=== PATIENT | female | born 1970 | race Caucasian/White ===

== ENCOUNTER 2022-02-03 12:55 | Outpatient (CLI) | payer BC, SELFPAY | END 2022-02-03 12:56 | disposition home or self-care (01) | LOC: LKVREF 02-14 10:00 | PROVIDERS: PCP Family Medicine; Visit Provider Nurse Practitioner Family | DX: N39.0 Urinary tract infection, site not specified (principal); R31.9 Hematuria, unspecified | CPT/HCPCS: 87086; 87186 ==

== ENCOUNTER 2022-04-03 10:28 | Emergency (ER) | payer BC, SELFPAY ==
[2022-04-03 10:34] VITALS: BP 119/74; PULSE 87; RESP 16; TEMP 36.3; O2SAT 96; BMI 30.8
--- NOTE | 2022-04-03 10:58 | ED_ITS ---
HPI - General Adult General Time Seen by Provider: 10:59 Date Seen: 04/03/22 Chief complaint: Shortness of Breath/Dyspnea Stated complaint: Short of breath, rash Time Seen by Provider: 04/03/22 10:56 Source: patient, RN notes reviewed and old records reviewed Mode of arrival: ambulatory Limitations: no limitations History of Present Illness HPI narrative: Patient is a 51-year-old female coming in with 2 concerns today. First of all, she has noticed a rash. She states it is faint pink spots that have started to spread onto her thighs and lower abdomen. She noted a couple weeks ago she had perineal itching. She has a history of yeast infections. She used Monistat 7 for a 7 day course, completing Thursday night. She has noticed increased itching moving out into the thighs in on the lower abdomen. She felt the Monistat helped some. She also noticed starting yesterday that her chest this feels heavy. It is worse with deep breathing. It is a central heaviness feeling. It feels worse with laying down. She does feel better sitting up. She does have some problems with some seasonal allergy issues and post nasal drainage/rhinorrhea. She does use Zyrtec daily. She notes seasonal changes will typically bring this on. She has maybe had occasional cough due to some postnasal drainage but no new cough noted. There has been no fevers or chills. She does not feel ill. On questioning and talking about thromboembolic disease, patient remembered that this morning she had extreme left calf pain that awoke her from sleep. She initially was just thinking that this might be a muscle cramp what with me talking about it, she did think about the calf pain. She does note that she has had a spinal fusion and has some decreased sensation in her legs from that, also has some peripheral neuropathy complicating chemotherapy. 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 Completion of radiation. Now on tamoxifen and Verzenio. Related Data Home Medications Medication Instructions Recorded Confirmed baclofen 10 mg tablet 10 mg PO QDAY 02/03/22 04/03/22 cetirizine 10 mg capsule (All Day 10 mg PO QDAY PRN 02/03/22 04/03/22 Allergy (cetirizine)) cholecalciferol (vitamin D3) 50 50 mcg PO QDAY 02/03/22 04/03/22 mcg (2,000 unit) capsule famotidine 20 mg tablet 20 mg PO BID 02/03/22 04/03/22 levothyroxine 75 mcg tablet 75 mcg PO QDAY 02/03/22 04/03/22 tamoxifen 20 mg tablet 20 mg PO .d 02/03/22 04/03/22 Florify .Route DAILY 02/18/22 03/27/22 Hair/Skin/Nails Not Applicable DAILY 02/18/22 03/27/22 cranberry 400 mg capsule 400 mg PO QDAY 02/18/22 04/03/22 Previous Rx's Medication Instructions Recorded abemaciclib 150 mg tablet 150 mg PO BID #60 tabs 02/14/22 fluconazole 150 mg tablet 150 mg PO DAILY #2 tabs 04/03/22 (Diflucan) nystatin 100,000 unit/gram topical 1 applic topical BID PRN #30 grams 04/03/22 powder omeprazole 40 mg capsule,delayed 40 mg PO DAILY #30 caps 04/03/22 release prednisone 20 mg tablet 60 mg PO DAILY #42 tabs 04/03/22 Allergies Allergy/AdvReac Type Severity Reaction Status Date / Time vancomycin Allergy Severe cardiac Verified 03/27/22 14:25 Sulfa (Sulfonamide Allergy Intermediate Respiratory Verified 03/27/22 14:25 Antibiotics) distress amoxicillin Allergy Mild Rash Verified 03/27/22 14:25 ciprofloxacin Allergy Mild Rash Verified 03/27/22 14:25 gabapentin Allergy Mild suicidal Verified 03/27/22 14:25 silicone adhesives Allergy Mild Rash Uncoded 02/03/22 13:01 Review of Systems Status of ROS: Reports: 10 or more systems reviewed and unremarkable except as noted in History and below FOR[facility]LY [facility], [facility] PFS Social History Smoking Status: Never smoker Exam Const: Vital Signs, click to edit/add: Vital Signs - 24 hr 04/03/22 10:34 Temperature 97.4 F L Pulse Rate [Right Pulse Oximeter] 87 Respiratory Rate 16 Blood Pressure [Ri ght Upper Arm] 119/74 Pulse Oximetry 96 Oxygen Delivery Me thod Room Air Documenting provider has reviewed patient's vital signs: yes Common normals: no apparent distress, average body habitus, oriented x3, no limitations, healthy appearing and alert General appearance: cooperative, comfortable, well kempt and well developed Other: Does appear mildly pale but is alert, conversive, no apparent distress. HENMT: Common normals: normocephalic, head/scalp atraumatic, hearing grossly normal bilaterally, external ears normal, external nose normal and nasal mucous membranes and turbinates normal Head and scalp: normocephalic and atraumatic Nose: external nose normal and nasal mucous membranes and turbinates normal External ear: external ears normal Eye: Common normals: PERRL, EOMs intact bilaterally, conjunctivae normal and no scleral icterus Conjunctiva: conjunctiva(e) normal Pupil: PERRL Neck & C-Spine: Common normals: full ROM, no lymphadenopathy, supple, no meningeal signs, no JVD and thyroid normal Thyroid: thyroid normal Lymph: Lymphatic: no lymphadenopathy noted Chest: Common normals: inspection of chest normal and palpation of chest normal Resp: Common normals: normal respiratory effort, no retractions, no use of accessory muscles and clear to auscultation bilaterally Auscultation: clear to auscultation bilaterally Cardio: Common normals: no JVD, regular rate, regular rhythm, S1 normal heart sound, S2 normal heart sound, no gallops, no clicks and no murmurs Rate: regular rate Rhythm: regular rhythm Heart sounds: S1 normal and S2 normal GI: Common normals: Normal to inspection, nondistended, normoactive bowel sounds present, soft to palpation, non-tender, no hepatosplenomegaly and no masses Palpation: soft and no hepatosplenomegaly Other: Faint erythematous strip in skin fold of lower abdominal pannus, mildly erythematous, no skin breakdown. Certainly could be a little yeast. : Other: Has no perineal rash, no discharge noted. She has atrophic changes but no masses noted. No rash noted of the inner thighs. Extremity: Other: Left calf maybe seems a little larger than the right but there is certainly no vascular changes, no change in skin coloration. No pitting edema. Neuro: Common normals: oriented x3, CN's II-XII intact bilaterally, moves all extremities, no focal motor deficits and gait normal Sensorium/orientation: alert Meningeal signs: no meningeal signs Speech: speech normal Psych: Appearance: well kempt Course Course Hospital Course: Patient's itching maybe coming from generalized pruritus. I do not see any definite rash outside of a small little strip in the abdominal pannus. We will get appropriate labs, see where her liver enzymes are. As far as the respiratory symptoms, did review concerns for pulmonary emboli/DVT given cancer history. She understands and agrees with proceeding with chest CT PE protocol and ultrasound in her left lower extremity. Will also look at cardiac possibilities is causes of her symptoms. She does not seem to have any acute infection concerns but will consider triple swab and possible early viral etiologies cause of her chest symptoms. Right now she is hemodynamically stable, will guide therapy accordingly. Reevaluation(s) Reevaluation #1: Reviewed the CT findings and my discussion with Dr. Castaneda. Answered patient's questions, reviewed with her signs and symptoms for return to the ED while she works through radiation pneumonitis. Time: 13:49 Consultations Consultation #1: Briefly spoke with Lena from the infusion center, she kindly referred me to [facility]. I spoke with Dr. Ever myers, had 10 minute conversation reviewing patient's history, CT findings. He agrees that this sounds like radiation pneumonitis. He states typically this will manifest 6 weeks to 6 months after radiation. He states she did all of her left chest and her left lymph nodes given her reports. He states this put her at a bit higher risk for this although overall this is not a high risk of a complication for most patients. She completed her radiation February 03. He recommended prednisone 60 mg daily for 2 weeks and then a taper after that. He will get his staff to get her back in on Thursday. We discussed antibiotic use and she has multiple allergies, this does not seem to be consistent with the bacterial pneumonia but she should watch for signs and symptoms. We also reviewed she has multiple antibiotic allergies which would make me hesitant to place her on any antibiotics unless we 100% knew that this was a bacterial pneumonia. This time he agrees, he really feels this is radiation pneumonitis. He would like her covered with omeprazole daily. Time: 13:31 Vital Signs Vital signs: Initial Vital Signs Temperature 97.4 F L 04/03/22 10:34 Temperature Source Temporal Artery Scan 04/03/22 10:34 Pulse Rate 87 04/03/22 10:34 Pulse Rhythm 04/03/22 10:34 Respiratory Rate 16 04/03/22 10:34 Blood Pressure 119/74 04/03/22 10:34 Blood Pressure Mean 89 04/03/22 10:34 Blood Pressure Position Sitting 04/03/22 10:34 Pulse Oximetry 96 04/03/22 10:34 Oxygen Delivery Method 04/03/22 10:34 Vital Signs Temperature 97.4 F L 04/03/22 10:34 Pulse Rate 87 04/03/22 10:34 Respiratory Rate 16 04/03/22 10:34 Blood Pressure 119/74 04/03/22 10:34 Pulse Oximetry 96 04/03/22 10:34 Oxygen Delivery Method 04/03/22 10:34 Temperature 97.4 F L 04/03/22 10:34 Pulse Rate 87 04/03/22 10:34 Respiratory Rate 16 04/03/22 10:34 Blood Pressure 119/74 04/03/22 10:34 Pulse Oximetry 96 04/03/22 10:34 Oxygen Delivery Method 04/03/22 10:34 Medical Decision Making Lab Data Lab results reviewed: Yes I reviewed the patient's lab results Labs: Lab Results 04/03/22 04/03/22 04/03/22 Range/Units 11:30 11:30 11:30 WBC 4.04 L (4.50-11.00) K/uL RBC 3.68 L (4.00-5.20) m/uL Hgb 11.4 L (12.0-16.0) gm/dL Hct 34.7 (33.0-51.0) % MCV 94 (80-100) fL MCH 31 (26-34) pg MCHC 33 (32-36) gm/dL RDW Coeff of Farhan 15.0 (11.5-15.5) % Plt Count 215 (140-440) K/uL Neut % (Auto) 64.7 (42.0-72.0) % Lymph % (Auto) 22.0 (20-44) % Anderson % (Auto) 10.4 (0.0-11.0) % Eos % (Auto) 2.0 (0.0-7.0) % Baso % (Auto) 0.7 (0.0-3.0) % Neut # (Auto) 2.60 (1.7-7.0) K/uL Lymph # (Auto) 0.90 (0.90-2.90) K/uL Anderson # (Auto) 0.40 (0.00-0.90) K/UL Eos # (Auto) 0.10 (0.00-0.50) K/uL Baso # (Auto) 0.00 (0.00-0.30) K/uL Abs Immat Gran (auto) 0.00 (0.00-0.30) K/uL Imm/Tot Granulo (auto) 0.2 % D-Dimer Quant (PE/DVT) 0.95 H (0.00-0.50) ug/ml Sodium 139 (135-149) mmol/L Potassium 4.0 (3.6-5.1) mmol/L Chloride 111 (96-114) mmol/L Carbon Dioxide 23 (20-32) mmol/L BUN 13 (7-30) mg/dL Creatinine 0.8 (0.5-1.5) mg/dL Estimated Creat Clear 74.02 Estimated GFR 89 ml/min Glucose 90 (60-115) mg/dL Lactate (0.5-1.9) mmol/L Calcium 8.8 (8.4-10.6) mg/dL Total Bilirubin 0.3 (0.1-1.5) mg/dL AST 20 (12-35) U/L ALT 15 (4-35) U/L Alkaline Phosphatase 50 (40-150) U/L Troponin I 0.01 (0.01-0.04) ng/mL C-Reactive Protein < 0.5 L (0.5-1.0) mg/dL NT-Pro-B Natriuret Pep (0-125) PG/mL Total Protein 6.5 (6.0-8.3) g/dL Albumin 3.7 (3.3-5.0) g/dL SARS-CoV-2 (PCR) (Negative) Influenza Type A (PCR) (Negative) Influenza Type B (PCR) (Negative) RSV (PCR) (Negative) 04/03/22 04/03/22 04/03/22 Range/Units 11:30 11:30 11:30 WBC (4.50-11.00) K/uL RBC (4.00-5.20) m/uL Hgb (12.0-16.0) gm/dL Hct (33.0-51.0) % MCV (80-100) fL MCH (26-34) pg MCHC (32-36) gm/dL RDW Coeff of Farhan (11.5-15.5) % Plt Count (140-440) K/uL Neut % (Auto) (42.0-72.0) % Lymph % (Auto) (20-44) % Anderson % (Auto) (0.0-11.0) % Eos % (Auto) (0.0-7.0) % Baso % (Auto) (0.0-3.0) % Neut # (Auto) (1.7-7.0) K/uL Lymph # (Auto) (0.90-2.90) K/uL Anderson # (Auto) (0.00-0.90) K/UL Eos # (Auto) (0.00-0.50) K/uL Baso # (Auto) (0.00-0.30) K/uL Abs Immat Gran (auto) (0.00-0.30) K/uL Imm/Tot Granulo (auto) % D-Dimer Quant (PE/DVT) (0.00-0.50) ug/ml Sodium (135-149) mmol/L Potassium (3.6-5.1) mmol/L Chloride (96-114) mmol/L Carbon Dioxide (20-32) mmol/L BUN (7-30) mg/dL Creatinine (0.5-1.5) mg/dL Estimated Creat Clear Estimated GFR ml/min Glucose (60-115) mg/dL Lactate 1.2 (0.5-1.9) mmol/L Calcium (8.4-10.6) mg/dL Total Bilirubin (0.1-1.5) mg/dL AST (12-35) U/L ALT (4-35) U/L Alkaline Phosphatase (40-150) U/L Troponin I (0.01-0.04) ng/mL C-Reactive Protein (0.5-1.0) mg/dL NT-Pro-B Natriuret Pep 136 H (0-125) PG/mL Total Protein (6.0-8.3) g/dL Albumin (3.3-5.0) g/dL SARS-CoV-2 (PCR) Negative SARS-CoV-2 (Negative) Influenza Type A (PCR) Negative PCR FLU A (Negative) Influenza Type B (PCR) Negative PCR FLU B (Negative) RSV (PCR) Negative PCR RSV (Negative) Imaging Data CT scan - chest: Attestation: I have reviewed the pertinent imaging results. Radiologist's impression: Patient: CLIFF MUIR Facility:?[facility] Patient ID:?[id number] Site Patient ID:?[id number]. Site :?[id number] Study:?CT Chest Angio PE W/ ISOVUE 370 95CC-04/03/2022 12:06:33 PM Ordering Physician:?Ricardo Alcantara Final Report: INDICATION: Chest discomfort. Dyspnea. History of breast carcinoma. COMPARISON: None TECHNIQUE: : CT examination of the chest was performed with the uneventful intravenous administration of 95 cc of Isovue 370 while thin axial sections were obtained from above the apices of the lungs to the lung bases. Please note that all CT scans at this facility use dose modulation, iterative reconstruction, and/or weight-based dosing when appropriate to reduce radiation dose to as low as reasonably achievable. FINDINGS: : HEART and MEDIASTINUM: The heart size is normal. There is no mediastinal or hilar adenopathy or mass. There is no pericardial effusion. PULMONARY ARTERIAL CIRCULATION: There is no visible intraluminal filling defect to suggest pulmonary embolus. LUNGS: A few subtle patchy ground-glass opacities are identified especially on the left and especially in the lingula. These are probably inflammatory. If the patient has had recent XRT to her breast, this could be very subtle early radiation induced pneumonitis. This would be a very unusual manifestation of malignancy. Given the history, a follow-up CT in no greater than 3 months should be considered. PLEURAL SPACES: There is no pleural effusion, pneumothorax or pleural based mass. VISUALIZED UPPER ABDOMEN: Left renal cyst. Right lobe hepatic cyst. Otherwise, the limited visualized upper abdominal structures appear normal. OSSEOUS STRUCTURES: Age-appropriate appearance. No acute fracture or destructive process. TUBES and LINES: None. CHEST WALL: Diffuse soft tissue thickening of the left breast probably post treatment. Postoperative changes of the upper outer quadrant of the left breast and the left axilla. IMPRESSION: 1. There is no finding of acute pulmonary embolus. 2. A few small subtle ground-glass opacities are noted primarily on the left. There are likely inflammatory. Given the history of a primary malignancy, a follow-up CT in no greater than 3 months is recommended to reassess these areas. Please review the comment appearance 3. No evidence of osseous metastatic disease. 4. Diffuse soft tissue thickening of the left breast. Postoperative change in the upper outer left breast and the left axilla. These findings are related to the patient`s malignancy and the treatment thereof. Please note that all CT scans at this facility use dose modulation, iterative reconstruction, and/or weight-based dosing when appropriate to reduce radiation dose to as low as reasonably achievable. Dictated by Marcus Cantu MD @ 04/03/2022 12:55:51 PM (Electronic Signature) ECG Data Attestation: I personally reviewed and interpreted this ECG as follows: (Sinus rhythm with sinus arrhythmia, 65 beats per minute. QT corrected 465 milliseconds. QRS is low voltage, poor R-wave progression. No acute ischemia. Some initial artifact in the beginning of this EKG.) Prior ECG tracings: not available for review Critical Care Time Critical Care Time Critical Care Time: No Discharge Plan Discharge Clinical Impression: Acute radiation pneumonitis, Pruritus, Yeast infection Condition: Stable Instructions: Pneumonitis (ED), Yeast Infection (ED), Itchy Skin (ED), Side Effects of Radiation Therapy (ED) Additional Instructions: 1. For the radiation pneumonitis, we are going to start prednisone 60 mg daily for 2 weeks and then further taper will be done by a Dr. Castaneda. His office will get you in to see him on this coming Thursday, they will contact you. You need to protect your stomach with omeprazole while you are on this. Should you develop increasing shortness of breath, difficulty breathing, increasing chest pain, develops a fever or productive or bloody sputum, need to return to the ED. 2. It seems that you have some general itching, increasing your Zyrtec to 10 mg twice a day may help. Talk to your oncologist about this as well when you follow-up with her. 3. You do have a little yeast in the skin fold of your abdomen. Going on high- dose prednisone may certainly make this worse. I am going to give you an oral Diflucan to take now and then repeat in [address] Castaneda or your oncologist about protection against yeast infections while on the prednisone. I will also send in a prescription for some nystatin powder for the skin fold. Activity Level: Activity as Tolerated Prescriptions: New prednisone 20 mg tablet 60 mg PO DAILY Qty: 42 0RF omeprazole 40 mg capsule,delayed release(DR/EC) 40 mg PO DAILY Qty: 30 1RF fluconazole [Diflucan] 150 mg tablet 150 mg PO DAILY Qty: 2 0RF Rx Instructions: Take one tablet today and repeat in one week, sooner if worsening yeast in skin fold nystatin 100,000 unit/gram powder 1 applic topical BID PRNQty: 30 0RF No Action abemaciclib 150 mg tablet 150 mg PO BID Qty: 60 11RF tamoxifen 20 mg tablet 20 mg PO .d Label Comments: TAKE 1 TABLET (20 MG) BY MOUTH ONCE DAILY. levothyroxine 75 mcg tablet 75 mcg PO QDAY famotidine 20 mg tablet 20 mg PO BID Label Comments: TAKE 1 TABLET (20 MG) BY MOUTH 2 TIMES DAILY IF NEEDED FOR HEARTBURN. baclofen 10 mg tablet 10 mg PO QDAY Hold Instructions: on hold All Day Allergy (cetirizine) 10 mg capsule 10 mg PO QDAY PRN cholecalciferol (vitamin D3) 50 mcg (2,000 unit) capsule 50 mcg PO QDAY Florify tablet .Route DAILY Rx Instructions: Melaleuca, daily probiotic Hair/Skin/Nails Not Applicable DAILY Label Comments: Melaleuca cranberry 400 mg capsule 400 mg PO QDAY Rx Instructions: administer with a meal Follow Up/Referrals: Freddie Chao MD [Primary Care Provider] - Stand Alone Forms: [facility] Info Instructions
--- NOTE | 2022-04-03 11:15 | CRLHL7_ITS ---
For Patients: As a result of the Century Cures Act, medical imaging exams and procedure reports are released immediately into your electronic medical record. You may view this report before your referring provider. If you have questions, please contact your health care provider. INDICATION: Leg pain and swelling. TECHNIQUE: Ultrasound venous duplex lower left extremity. Compression venous exam was performed using cruz-scale, color Doppler, and spectral Doppler analysis. COMPARISON: None. FINDINGS: Deep veins: Sonographic imaging demonstrates the left common femoral, deep femoral, superficial femoral, popliteal, posterior tibial and the contralateral right common femoral veins to be fully compressible with normal color Doppler blood flow. Superficial veins: Greater saphenous vein is fully compressible. Soft tissues: No popliteal cyst. IMPRESSION: Normal left lower extremity venous ultrasound, no sign of deep venous thrombosis. Dictated by Andrey Hale MD @ 04/03/2022 1:27:44 PM (Electronically Signed)
[2022-04-03 11:16] VITALS: O2SAT 98
--- NOTE | 2022-04-03 11:16 | CRLHL7_ITS ---
For Patients: As a result of the 21st Century Cures Act, medical imaging exams and procedure reports are released immediately into your electronic medical record. You may view this report before your referring provider. If you have questions, please contact your health care provider. INDICATION: Chest discomfort. Dyspnea. History of breast carcinoma. COMPARISON: None TECHNIQUE: : CT examination of the chest was performed with the uneventful intravenous administration of 95 cc of Isovue 370 while thin axial sections were obtained from above the apices of the lungs to the lung bases. Please note that all CT scans at this facility use dose modulation, iterative reconstruction, and/or weight-based dosing when appropriate to reduce radiation dose to as low as reasonably achievable. FINDINGS: : HEART and MEDIASTINUM: The heart size is normal. There is no mediastinal or hilar adenopathy or mass. There is no pericardial effusion. PULMONARY ARTERIAL CIRCULATION: There is no visible intraluminal filling defect to suggest pulmonary embolus. LUNGS: A few subtle patchy ground-glass opacities are identified especially on the left and especially in the lingula. These are probably inflammatory. If the patient has had recent XRT to her breast, this could be very subtle early radiation induced pneumonitis. This would be a very unusual manifestation of malignancy. Given the history, a follow-up CT in no greater than 3 months should be considered. PLEURAL SPACES: There is no pleural effusion, pneumothorax or pleural based mass. VISUALIZED UPPER ABDOMEN: Left renal cyst. Right lobe hepatic cyst. Otherwise, the limited visualized upper abdominal structures appear normal. OSSEOUS STRUCTURES: Age-appropriate appearance. No acute fracture or destructive process. TUBES and LINES: None. CHEST WALL: Diffuse soft tissue thickening of the left breast probably post treatment. Postoperative changes of the upper outer quadrant of the left breast and the left axilla. IMPRESSION: 1. There is no finding of acute pulmonary embolus. 2. A few small subtle ground-glass opacities are noted primarily on the left. There are likely inflammatory. Given the history of a primary malignancy, a follow-up CT in no greater than 3 months is recommended to reassess these areas. Please review the comment appearance 3. No evidence of osseous metastatic disease. 4. Diffuse soft tissue thickening of the left breast. Postoperative change in the upper outer left breast and the left axilla. These findings are related to the patient`s malignancy and the treatment thereof. Please note that all CT scans at this facility use dose modulation, iterative reconstruction, and/or weight-based dosing when appropriate to reduce radiation dose to as low as reasonably achievable. Dictated by Marcus Cantu MD @ 04/03/2022 12:55:51 PM (Electronically Signed)
--- OUTSIDE RECORDS SUMMARY | 2022-04-03 11:25 | XMS_ITS ---
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 Past Plans No past plan information found. Radiation Treatments Plan Last Treated Elapsed Days Fractions Prescribed Prescribed Total On Treated Fraction Dose Dose [id number] 02/03/2022 35 25 of 25 220 cGy 5,500 cGy Reference Point Last Treated On Elapsed Days Session Dose Total Dos e [id number] 02/03/2022 35 220 cGy 5,500 cGy ICRU [id number] 01/08/2022 9 226 cGy 1,810 cGy [id number] 01/08/2022 9 200 cGy 1,600 cGy
--- OUTSIDE RECORDS SUMMARY | 2022-04-03 11:25 | XMS_ITS | Encounter Summary ---
:1970 Author Organization [facility] Address [address] [place] [address] Care Team Providers Name Role Phone Unavailable Primary Care Provider Unavailable Reason for Visit Radiation Therapy (Routine) - Closed Specialty Diagnoses / Procedures Referred By Contact Refer red To Contact Diagnoses Malignant Neoplasm Of Breast Upper Outer Quadrant Female Left (HCC) Fritz Smith M.D. [facility] Procedures Prior Auth Rad Tx [place] IMRT SIMPLE [address] [place], [place] [address] Referral ID Status Reason Start Date Expiration Date Visits Requ ested Visits Authorized [id number] Closed 10/25/2021 10/25/2022 25 25 Encounter Details Date Type Department Care Team Description 01/28/2022 Hospital Encounter Department of Radiation Jared Smith, [place] [address] [facility] [address] [place] [phone] Social History Tobacco Use Types Packs/Day Years Used Date Smoking Tobacco: Never Smokeless Tobacco: Never Alcohol Use Standard Drinks/Week Comments Never 0 (1 standard drink = 0.6 oz pure alcoho l) Alcohol Habits Answer Date Recorded How often do you have a drink containing alcohol? Never 10/31/2021 How many drinks containing alcohol do you have on a typical Not asked day when you are drinking? How often do you have six or more drinks on one occasion? No t asked Social Isolation Answer Date Recorded In a typical week, how many times do you More than three saadia es a week 10/31/2021 talk on the phone with family, friends, or neighbors? How often do you get together with friends Never 10/31/2021 or relatives? How often do you attend orthodox or More than 4 times per year 10/31/2021 confucianism services? Do you belong to any clubs or No 10/31/2021 organizations such as orthodox groups, unions, fraCipio or athletic groups, or school groups? How often do you attend meetings of the Patient refused 10/31/2021 clubs or organizations you belong to? Are you now , , , 10/31/2021 , never or living with a partner? Physical Activity Answer Date Recorded On average, how many days per week do you engage in moderate to 2 days 10/31/2021 strenuous exercise (like walking fast, running, jogging, dancing, swimming, biking, or other activities that cause a light or heavy sweat)? On average, how many minutes do you engage in exercise at th is 30 min 10/31/2021 level? Stress Answer Date Recorded Do you feel stress - tense, restless, nervous, or Only a lit tle 10/31/2021 anxious, or unable to sleep at night because your mind is troubled all the time - these days? Financial Resource Strain Answer Date Recorded How hard is it for you to pay for the very basics like Not h anurag at all 10/31/2021 food, housing, medical care, and heating? Intimate Partner Violence Answer Date Recorded Within the last year, have you been afraid of your partner o r No 10/31/2021 ex-partner? Within the last year, have you been humiliated or emotionall y No 10/31/2021 abused in other ways by your partner or ex-partner? Within the last year, have you been kicked, hit, slapped, or No 10/31/2021 otherwise physically hurt by your partner or ex-partner? Within the last year, have you been raped or forced to have any No 10/31/2021 kind of sexual activity by your partner or ex-partner? Food Insecurity Answer Date Recorded Within the past 12 months, you worried that your food would Never true 10/31/2021 run out before you got money to buy more. Within the past 12 months, the food you bought just didn't N ever true 10/31/2021 last and you didn't have money to get more. Transportation Needs Answer Date Recorded In the past 12 months, has lack of transportation kept you f rom No 10/31/2021 medical appointments or from getting medications? In the past 12 months, has lack of transportation kept you f rom No 10/31/2021 meetings, work, or getting things needed for daily living? Housing Stability Answer Date Recorded In the last 12 months, was there a time when you were not No t asked able to pay the mortgage or rent on time? In the last 12 months, how many places have you lived? 1 10/31/2021 In the last 12 months, was there a time when you did not hav e No 10/31/[address] sleep or slept in a fdc (including now)? Education Answer Date Recorded What is the highest level of school Bachelor's degree (e.g., BA, AB, 10/31/2021 you have completed or the highest BS) degree you have received? Sex Assigned at Date Recorded Female 10/31/2021 2:05 PM CDT documented as of this encounter Medications at Time of Discharge Medication Sig Dispensed Refills Start Date End Date baclofen (LIORESAL) 10 mg TAKE 1-2 TABLETS 0 10/2021 tablet (10-20 MG) BY MOUTH ONCE DAILY IF NEEDED (MUSCLE SPASMS). cetirizine (ZyrTEC) 10 mg Take 10 mg by mouth 0 0 05/22/2021 tablet daily. cholecalciferol (VITAMIN D3) daily. 0 022 50 mcg (2,000 Unit) capsule famotidine (PEPCID) 20 mg Take 20 mg by mouth 0 0 08/30/2021 tablet daily. L.acid/L.casei/B.bif/B.luís/F daily. 0 022 OS (PROBIOTIC BLEND ORAL) levothyroxine (SYNTHROID, Take 75 mcg by 0 2020 LEVOTHROID) 75 mcg tablet mouth every morning before breakfast. PreviDent 5000 Booster Plus daily. 0 12/03/19 22 1.1 % paste dental paste tamoxifen (NOLVADEX) 20 mg Take 20 mg by mouth 0 10/11/2021 tablet daily. triamcinolone (KENALOG) 0.1 as needed. 0 09/07/19 22 % cream documented as of this encounter Plan of Treatment Not on filedocumented as of this encounter Visit Diagnoses Not on filedocumented in this encounter
--- OUTSIDE RECORDS SUMMARY | 2022-04-03 11:25 | XMS_ITS | Encounter Summary ---
:1970 Author Organization [facility] Address [address] [place] [address] Care Team Providers Name Role Phone Unavailable Primary Care Provider Unavailable Reason for Visit Radiation Therapy (Routine) - Closed Specialty Diagnoses / Procedures Referred By Contact Refer red To Contact Diagnoses Malignant Neoplasm Of Breast Upper Outer Quadrant Female Left (HCC) Fritz Smith M.D. [facility] Procedures Prior Auth Rad Tx [place] IMRT SIMPLE [address] [place], [place] [address] Referral ID Status Reason Start Date Expiration Date Visits Requ ested Visits Authorized [id number] Closed 10/25/2021 10/25/2022 25 25 Encounter Details Date Type Department Care Team Description 01/24/2022 Hospital Encounter Department of Radiation [place], [place] [address] [facility] [address] [place] [phone] Social History Tobacco Use Types Packs/Day Years [...] or relatives? How often do you attend scientology or More than 4 times per year 10/31/2021 sabianist services? Do you belong to any clubs or No 10/31/2021 organizations such as scientology groups, unions, fraMediaSilo or athletic groups, or school groups? How [...] place to sleep or slept in a half-way (including now)? Education Answer Date Recorded What [...]
--- OUTSIDE RECORDS SUMMARY | 2022-04-03 11:25 | XMS_ITS | Encounter Summary ---
:1970 Author Organization [facility] Address [address] [place] [address] Care Team Providers Name Role Phone Unavailable Primary Care Provider Unavailable Reason for Visit Radiation Therapy (Routine) - Closed Specialty Diagnoses / Procedures Referred By Contact Refer red To Contact Diagnoses Malignant Neoplasm Of Breast Upper Outer Quadrant Female Left (HCC) Fritz Smith M.D. [facility] Procedures Prior Auth Rad Tx [place] IMRT SIMPLE [address] [place], [place] [address] Referral ID Status Reason Start Date Expiration Date Visits Requ ested Visits Authorized [id number] Closed 10/25/2021 10/25/2022 25 25 Encounter Details Date Type Department Care Team Description 01/29/2022 Hospital Encounter Department of Radiation Jared [place], [place] [address] [facility] [address] [place] [phone] Social History Tobacco Use Types Packs/Day Years [...] or relatives? How often do you attend advent or More than 4 times per year 10/31/2021 adventism services? Do you belong to any clubs or No 10/31/2021 organizations such as advent groups, unions, fraDelivery Agent or athletic groups, or school groups? How [...] place to sleep or slept in a [place] [facility] (including now)? Education Answer Date Recorded What [...]
--- OUTSIDE RECORDS SUMMARY | 2022-04-03 11:25 | XMS_ITS | Clinical Summary ---
:1970 Author Organization [facility] Address [address] [place] [address] Care Team Providers Name Role Phone Unavailable Primary Care Provider Unavailable Source Comments Patient records contain information from all sites at [facility]. For routine questions regarding patient records, call [phone] during business hours, M-F 8:00 AM - 5:00 PM Central Time. Record requests for emergency care only can be directed to [phone] at any time.[facility] Allergies Active Allergy Reactions Severity Noted Date Comments Adhesive Tape-Silicones Rash Medium 12/19/2016 From EKG patches, Dermatitis/Rash Amoxicillin Hives, Shortness of Low 11/11/2003 breath Ciprofloxacin Shortness of breath, Low 01/07/2017 Rash Gabapentin Other (see comments) High 01/06/2022 Depress ion/suicidal ideation Sulfa (Sulfonamide Hives, Shortness of Low 11/11/2003 Antibiotics) breath Vancomycin Other (see High 12/19/2016 Suspected drug rash comments), Rash to vancomyci n, not certain Medications Medication Sig Dispensed Refills Start Date End Date Status baclofen (LIORESAL) 10 TAKE 1-2 TABLETS 0 09/20/2021 Active mg tablet (10-20 MG) BY MOUTH ONCE DAILY IF NEEDED (MUSCLE SPASMS). cetirizine (ZyrTEC) 10 Take 10 mg by 0 05/22/2021 Active mg tablet mouth daily. famotidine (PEPCID) 20 Take 20 mg by 0 08/30/2021 Active mg tablet mouth daily. levothyroxine Take 75 mcg by 0 03/19/2021 Active (SYNTHROID, LEVOTHROID) mouth every 75 mcg tablet morning before breakfast. tamoxifen (NOLVADEX) 20 Take 20 mg by 0 10/11/2021 Active mg tablet mouth daily. triamcinolone (KENALOG) as needed. 0 09/06/2021 Active 0.1 % cream L.acid/L.casei/B.bif/B.l daily. 0 11/25/2021 Active on/FOS (PROBIOTIC BLEND ORAL) cholecalciferol (VITAMIN daily. 0 11/25/2021 Active D3) 50 mcg (2,000 Unit) capsule PreviDent 5000 Booster daily. 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 (Primary Dx) 02/25/2022 Clinical Support Physical Medicine and Paola Saravia mphedema Post Rehabilitation [place] Velázquez Mastectomy Jeaneth Llamas, O.T., CLT-KATHY 02/25/2022 Office Visit Plastic Surgery Marlen Ruvalcaba, Aftercare P lastic Surgery (Primary Dx); IRON CUTTER, C.N.P., Lymphedema Pos t Mastectomy D.N.P. 02/25/2022 Ancillary Procedure 02/07/2022 Clinical Radiation Oncology Sarah, Communication Fritz Shah M.D. 02/03/2022 Hospital Encounter Radiation Oncology Fritz Smith M.D. 02/03/2022 Documentation Radiation Oncology Fritz Smith M.D. 02/03/2022 Clinical Radiation Oncology Sarah, Blood in Urine Communication Fritz Shah M.D. 01/31/2022 Hospital Encounter Radiation Oncology Fritz Smith M.D. 01/30/2022 Hospital Encounter Radiation Oncology Fritz Smith M.D. 01/29/2022 Hospital Encounter Radiation Oncology Fritz Smith M.D. 01/29/2022 Hospital Encounter Radiation Oncology Sarah Mal ignant Neoplasm Fritz Shah M.D. Of Breast Uppe r Outer Quadrant Female Left (HC C) 01/28/2022 Hospital Encounter Radiation Fritz Arreguin M.D. 01/27/2022 Hospital Encounter Radiation Fritz Arreguin M.D. 01/24/2022 Hospital Encounter Radiation Fritz Arreguin M.D. 01/23/2022 Hospital Encounter Radiation Fritz Arreguin M.D. 01/22/2022 Hospital Encounter Radiation Fritz Arreguin M.D. 01/22/2022 Hospital Encounter Radiation Oncology Sarah, Mal ignant Neoplasm Fritz Shah M.D. Of Breast Uppe r Outer Quadrant Female Left (HC C) 01/21/2022 Hospital Encounter Radiation Fritz Arreguin M.D. 01/17/2022 Hospital Encounter Radiation Fritz Arreguin M.D. 01/16/2022 Hospital Encounter Radiation Fritz Arreguin M.D. 01/15/2022 Hospital Encounter Radiation Oncology Sarah Mal ignant Neoplasm Fritz Shah M.D. Of Breast Uppe r Outer Quadrant Female Left (HC C) 01/15/2022 Hospital Encounter Radiation Fritz Arreguin M.D. 01/14/2022 Hospital Encounter Radiation Fritz Arreguin M.D. 01/13/2022 Hospital Encounter Radiation Fritz Arreguin M.D. 01/10/2022 Hospital Encounter Radiation Fritz Arreguin M.D. 01/10/2022 Clinical Support Physical Medicine and Paola Saravia mphedema Post Rehabilitation [place] Velázquez Mastectomy Jeaneth Llamas O.Alfredito., [facility] 01/09/2022 Hospital Encounter Radiation Fritz Arreguin M.D. 01/09/2022 Clinical Radiation Oncology Sarah, Communication Fritz Shah M.D. 01/08/2022 Hospital Encounter Radiation Oncology Landon Smith Neuropathic (Primary Dx); Fritz Shah M.D. Malignant Neop lasm Of Breast Upper Outer Quadrant Female Left (HCC) 01/08/2022 Hospital Encounter Radiation Oncology Fritz Smith M.D. 01/07/2022 Hospital Encounter Radiation Oncology Fritz Smith M.D. 01/06/2022 Hospital Encounter Radiation Oncology Sarah, Mal ignant Neoplasm Fritz Shah M.D. Of Breast Upper Malena Estevez Outer Quadrant A, R.N. Female Left (HC C) 01/06/2022 Hospital Encounter Radiation Oncology Fritz Smith M.D. 01/03/2022 Hospital Encounter Radiation Oncology Fritz Smith M.D. 01/02/2022 Hospital Encounter Radiation Oncology Fritz Smith M.D. 01/01/2022 Hospital Encounter Radiation Oncology Fritz Smith M.D. from Last 3 Months Family History Medical History Relation Name Comments Skin cancer Brother 1 Samuel Obesity Brother 2 Tyler Lung cancer Father Hardy Smoking, asbesto s Obesity Father Hardy Other cancer Father Hardy Bladder, throat Alcohol abuse Maternal Grandfather Edward Alcohol abuse Mother Mariam Breast cancer Mother Mariam Double mastectom y, liver cancer 3 years later Hypertension Mother Mariam Obesity Mother Mariam Stroke Paternal Grandmother Macy Breast cancer Sister Katherine Lumpectomy, 18 y ear survivor Skin cancer Sister Katherine Relation Name Status Comments Brother 1 Samuel Brother 2 Tyler Father Hardy Maternal Grandfather Edjaime Mother Mariam Paternal Grandmother Macy Sister Katherine Social History Tobacco Use Types Packs/Day Years [...] or relatives? How often do you attend mandaeism or More than 4 times per year 10/31/2021 jainism services? Do you belong to any clubs or No 10/31/2021 organizations such as mandaeism groups, unions, fraternal or athletic groups, or school groups? How [...] place to sleep or slept in a fci (including now)? Education Answer Date Recorded What is the highest level of school Bachelor's degree (e.g., BA, AB, 10/31/2021 you have completed or the highest BS) degree you have received? Sex Assigned at Date Recorded Female 10/31/2021 2:05 PM CDT Last Filed Vital Signs Vital Sign Reading Time Taken Comments Blood Pressure 113/63 12/20/2021 8:55 AM CDT Pulse 62 12/20/2021 8:55 AM CDT Temperature 36.9 ??C (98.4 ??F) 01/29/2022 3:45 PM CDT Respiratory Rate 16 11/22/2021 9:49 AM CDT Oxygen Saturation 98% 11/22/2021 9:49 AM CDT Inhaled Oxygen Concentration - - Weight 83.5 kg (184 lb 1.4 oz) 01/29/2022 3:45 PM CDT Height 166 cm (5' 5.35) 11/22/2021 9:49 AM CDT Body Mass Index 30.3 11/22/2021 9:49 AM CDT Plan of Treatment Health Maintenance Due Date Last Done Comments CT Colonography 1970 Cologuard 1970 Colonoscopy 1970 Colorectal Cancer Screening 1970 FIT 1970 HIV Screening 1970 Hepatitis B Vaccines (1 of 3 - 1970 3-dose series) Hepatitis C Screening 1970 Pneumococcal vaccine (0-64 years) 1975 (1 - PCV) Depression Screening (Annual 05/18/2021 PHQ-2) Thyroid Stimulating Hormone (TSH) 01/22/2022 01/22/2021 test for thyroid function Influenza Vaccine (#1) 2022 04/06/2020, 04/09/2018, 03/14/2015, Additional history exists Mammogram 11/07/2022 11/07/2021, 04/25/2021, 04/25/2021, Additional history exists Fasting Glucose for Diabetes 11/22/2024 11/22/2021, 022, Screening 06/21/2021, Additional history exists Lipid (Cholesterol) Screening 01/22/2026 01/22/2021 DTaP,Tdap,and Td Vaccines (2 - Td 12/02/2026 12/02/2016, , or Tdap) 02/14/1994 Zoster Vaccines Completed 05/07/2021, 03/07/2021 COVID-19 Vaccine Completed 02/17/2022, 05/14/2021, 09/28/2020, Additional history exists Medical Devices Implanted Type Area Label Fuser Tender Device Shelf Model / Identifier Expiration Serial / Date Lot Hardware E.G. Hardware e.g. Mouth Pins/Screws/Ro pins/screws/r ds ods Description: Dental implants Clp Hrzn Ti 6 Clp Sm Red - [id number] Hardware e.g. Tel eflex [id number] 06/03/2026 [id number] / Implanted: Qty: 1 on 11/12/2021 by Jennifer Joyner D.O. at [facility] pins/screws/rods [facility] / [id number] Imaging Marker Imaging Marker Breast Procedures Procedure Name Priority Date/Time Associated Comments Diagnosis PLASTIC AND RECON Routine 02/25/2022 12:00 Result s for this SURGERY IMAGE EXAM PM CDT procedure are in the results section. ARIA COURSE COMPLETE Routine 02/03/2022 4:15 PM R esults for this TREATMENT INFORMATION CDT proced ure are in the results section. ARIA DAILY TREATMENT Routine 02/03/2022 4:15 PM R esults for this INFORMATION CDT procedure are i n the results section. ARIA DAILY TREATMENT Routine 01/31/2022 4:20 PM R esults for this INFORMATION CDT procedure are i n the results section. ARIA DAILY TREATMENT Routine 01/30/2022 4:04 PM R esults for this INFORMATION CDT procedure are i n the results section. ARIA DAILY TREATMENT Routine 01/29/2022 4:44 PM R esults for this INFORMATION CDT procedure are i n the results section. ARIA DAILY TREATMENT Routine 01/28/2022 4:32 PM R esults for this INFORMATION CDT procedure are i n the results section. ARIA DAILY TREATMENT Routine 01/27/2022 3:11 PM R esults for this INFORMATION CDT procedure are i n the results section. ARIA DAILY TREATMENT Routine 01/24/2022 4:15 PM R esults for this INFORMATION CDT procedure are i n the results section. ARIA DAILY TREATMENT Routine 01/23/2022 3:57 PM R esults for this INFORMATION CDT procedure are i n the results section. ARIA DAILY TREATMENT Routine 01/22/2022 4:20 PM R esults for this INFORMATION CDT procedure are i n the results section. ARIA DAILY TREATMENT Routine 01/21/2022 4:23 PM R esults for this INFORMATION CDT procedure are i n the results section. ARIA DAILY TREATMENT Routine 01/17/2022 1:59 PM R esults for this INFORMATION CDT procedure are i n the results section. ARIA DAILY TREATMENT Routine 01/16/2022 3:29 PM R esults for this INFORMATION CDT procedure are i n the results section. ARIA DAILY TREATMENT Routine 01/15/2022 3:19 PM R esults for this INFORMATION CDT procedure are i n the results section. ARIA DAILY TREATMENT Routine 01/14/2022 3:34 PM R esults for this INFORMATION CDT procedure are i n the results section. ARIA DAILY TREATMENT Routine 01/13/2022 3:30 PM R esults for this INFORMATION CDT procedure are i n the results section. ARIA DAILY TREATMENT Routine 01/10/2022 3:15 PM R esults for this INFORMATION CDT procedure are i n the results section. ARIA DAILY TREATMENT Routine 01/09/2022 3:22 PM R esults for this INFORMATION CDT procedure are i n the results section. ARIA DAILY TREATMENT Routine 01/08/2022 3:18 PM R esults for this INFORMATION CDT procedure are i n the results section. ARIA DAILY TREATMENT Routine 01/07/2022 3:15 PM R esults for this INFORMATION CDT procedure are i n the results section. ARIA DAILY TREATMENT Routine 01/06/2022 11:04 Res ults for this INFORMATION AM CDT procedure are i n the results section. ARIA DAILY TREATMENT Routine 01/03/2022 2:47 PM R esults for this INFORMATION CDT procedure are i n the results section. ARIA DAILY TREATMENT Routine 01/02/2022 2:54 PM R esults for this INFORMATION CDT procedure are i n the results section. ARIA DAILY TREATMENT Routine 01/01/2022 3:04 PM R esults for this INFORMATION CDT procedure are i n the results section. from Last 3 Months Results Arms Lymphaticovenous Bypass-Plastic And Recon Surgery Image Exam (02/25/2022 12:00 PM CDT) Specimen (Source) Anatomical Location Collection Method / Collectio n Time Received Time / Laterality Volume Narrative IIMS - 02/25/2022 4:13 PM CDT This order has been created and auto-finalized to support the import of images acquired without order. The clini son documentation to support these images can be found on the encounter ronnie t produced images. Provider Not In System IMG NON RAD IMAGING PROCEDUR ES Performing Organization Address City/State/ZIP Code Phon e Number [facility] Aria Course Complete Treatment Information (02/03/2022 4:15 PM CDT) [facility] gist Method Time Signature Course ID [id number] LEE ARIA Course Start Date LEE ARIA 2 08:20 CDT Course End Date LEE ARIA 2 14:41 CDT First Treatment LEE ARIA Date 2 15:42 CDT Last Treatment LEE ARIA Date 2 16:15 CDT Treatment Elapsed 35 LEE ARIA Days Reference Point [id number] LEE ARIA Dosage Given to 5500 LEE ARIA Date cGy Plan ID [id number] LEE ARIA Fractions Treated 25 LEE ARIA to Date Planned Total 25 LEE ARIA Fractions Prescribed Dose 220 LEE ARIA Per Fraction Prescription Dose 5500 LEE ARIA in cGy Plan Primary [id number] LEE ARIA Reference Point Specimen (Source) Anatomical Collection Method Collection Time Re ceived Time Location / / Volume Laterality 02/03/2022 4:15 PM CDT Provider Not In System RADIATION ONCOLOGY ORDERABLE S Performing Organization Address City/State/ZIP Code Phon e Number [facility] Aria Daily Treatment Information (02/03/2022 4:15 PM CDT)Only the most recent of 23 resultswithin the time period is included. [facility] gist Method Time Signature Course ID [id number] LEE ARIA Course Start Date LEE ARIA 2 08:20 CDT First Treatment LEE ARIA Date 2 15:42 CDT Last Treatment LEE ARIA Date 2 16:15 CDT Treatment Elapsed 35 LEE ARIA Days Reference Point [id number] LEE ARIA Dosage Given to 5500 LEE ARIA Date cGy Session Dosage 220 LEE ARIA Given Plan ID [id number] LEE ARIA Fractions Treated 25 LEE ARIA to Date Planned Total 25 LEE ARIA Fractions Prescribed Dose 220 LEE ARIA Per Fraction Prescription Dose 5500 LEE ARIA in cGy Plan Primary [id number] LEE ARIA Reference Point Specimen (Source) Anatomical Collection Method Collection Time Re ceived Time Location / / Volume Laterality 02/03/2022 4:15 PM CDT Provider Not In System RADIATION ONCOLOGY ORDERABLE S Performing Organization Address City/State/ZIP Code Phon e Number [place] na from Last 3 Months Insurance Payer Benefit Plan / Subscriber ID Effective Dates Phone Addre ss Type Group [employer] [employer] [place] [id number] 2017-[place]car[place] [phone] [id number] [facility] [address] [place], [facility] [id number] [phone] (Work) Advance Directives For more information, please contact: [phone] Latest Code Status on File Code Status Date Activated Date Inactivated Comments Full Code 11/12/2021 7:28 AM 11/12/2021 9:42 PM Question Answer Comments Full Code: Not Discussed Due to: Not medically appropriate
--- OUTSIDE RECORDS SUMMARY | 2022-04-03 11:25 | XMS_ITS | Encounter Summary ---
:1970 Author Organization [facility] Address [address] [place] [address] Care Team Providers Name Role Phone Unavailable Primary Care Provider Unavailable Reason for Visit Radiation Therapy (Routine) - Closed Specialty Diagnoses / Procedures Referred By Contact Refer red To Contact Diagnoses Malignant Neoplasm Of Breast Upper Outer Quadrant Female Left (HCC) Fritz Smith M.D. [facility] Procedures Prior Auth Rad Tx [place] IMRT SIMPLE [address] [place] [address] Referral ID Status Reason Start Date Expiration Date Visits Requ ested Visits Authorized [id number] Closed 10/25/2021 10/25/2022 25 25 Encounter Details Date Type Department Care Team Description 01/31/2022 Hospital Encounter Department of Radiation Jared Smith, [place] [address] [facility] [address] [place] [phone] Social History Tobacco Use Types Packs/Day Years [...] or relatives? How often do you attend uatsdin or More than 4 times per year 10/31/2021 evangelical services? Do you belong to any clubs or No 10/31/2021 organizations such as uatsdin groups, unions, fraNuenz or athletic groups, or school groups? How [...] place to sleep or slept in a assisted (including now)? Education Answer Date Recorded What [...]
--- OUTSIDE RECORDS SUMMARY | 2022-04-03 11:25 | XMS_ITS | Encounter Summary ---
:1970 Author Organization [facility] Address [address] [place] [address] Care Team Providers Name Role Phone Unavailable Primary Care Provider Unavailable Reason for Visit Radiation Therapy (Routine) - Closed Specialty Diagnoses / Procedures Referred By Contact Refer red To Contact Diagnoses Malignant Neoplasm Of Breast Upper Outer Quadrant Female Left (HCC) Fritz Smith M.D. [facility] Procedures Prior Auth Rad Tx [place] IMRT SIMPLE [address] [place], [place] [phone] Referral ID Status Reason Start Date Expiration Date Visits Requ ested Visits Authorized [id number] Closed 10/25/2021 10/25/2022 25 25 Encounter Details Date Type Department Care Team Description 01/30/2022 Hospital Encounter Department of Radiation Jared Smith, [place] [address] [facility] [address] [place] [phone] Social History Tobacco Use Types Packs/Day Years [...] or relatives? How often do you attend christianity or More than 4 times per year 10/31/2021 moravian services? Do you belong to any clubs or No 10/31/2021 organizations such as christianity groups, unions, fraHealthFusion or athletic groups, or school groups? How [...] place to sleep or slept in a fpc (including now)? Education Answer Date Recorded What [...]
--- OUTSIDE RECORDS SUMMARY | 2022-04-03 11:25 | XMS_ITS | Encounter Summary ---
:1970 Author Organization [facility] Address [address] [place] [address] Care Team Providers Name Role Phone Unavailable Primary Care Provider Unavailable Reason for Visit Radiation Therapy (Routine) - Closed Specialty Diagnoses / Procedures Referred By Contact Refer red To Contact Diagnoses Malignant Neoplasm Of Breast Upper Outer Quadrant Female Left (HCC) Fritz Smith M.D. [facility] Procedures Prior Auth Rad Tx [place] IMRT SIMPLE [address] [place], [place] [phone] Referral ID Status Reason Start Date Expiration Date Visits Requ ested Visits Authorized [id number] Closed 10/25/2021 10/25/2022 25 25 Encounter Details Date Type Department Care Team Description 01/23/2022 Hospital Encounter Department of Radiation Jared Smith, [place]cology [place] [address] [facility] [address] [place] [phone] Social History Tobacco Use Types Packs/Day Years [...] More than 4 times per year 10/31/2021 bahai services? Do you belong to any clubs or No 10/31/2021 organizations such as uatsdin groups, unions, fraCombined Power or athletic groups, or school groups? How [...] place to sleep or slept in a longterm (including now)? Education Answer Date Recorded What [...]
--- OUTSIDE RECORDS SUMMARY | 2022-04-03 11:25 | XMS_ITS | Encounter Summary ---
:1970 Author Organization [facility] Address [address] [place] [address] Care Team Providers Name Role Phone Unavailable Primary Care Provider Unavailable Reason for Visit Reason Comments Blood in Urine Encounter Details Date Type Department Care Team Description 02/03/2022 Clinical Communication Department of Fritz Smith in [place] [facility] [facility] [address] [facility] [address] [place] [address] [phone] Social History Tobacco Use Types Packs/Day Years [...] or relatives? How often do you attend islam or More than 4 times per year 10/31/2021 buddhist services? Do you belong to any clubs or No 10/31/2021 organizations such as islam groups, unions, fraternal or athletic groups, or [...] place to sleep or slept in a halfway (including now)? Education Answer Date Recorded What is the highest level of school Bachelor's degree (e.g., BA, AB, 10/31/2021 you have completed or the highest BS) degree you have received? Sex Assigned at Date Recorded Female 10/31/2021 2:05 PM CDT documented as of this encounter Miscellaneous Notes Telephone Encounter - Corina Eason R.N. - 02/03/2022 11:17 AM CDT SUBJECTIVE CHIEF COMPLAINT / REASON FOR CALL Blood in Urine ASSESSMENT Patient reports she is experiencing urinary urgency and frequency but is unable to void completely. Patient also verbalizes that she has blood in urine. PLAN After discussion with Teetee Katz PA-C it was recommended that the patient reach out to her PCP for further symptom evaluation. Patient is agreeable to this plan. Disposition/Recommendation: self-care - appropriate at this time, patient encouraged to call back with questions. Information/Education: patient/caller able to teach back. Caller agreeable to plan of care: yes. The following references were used: provider Teetee Katz PA-C . Telephone Encounter - Mateus Laverne L - 02/03/2022 10:02 AM CDT Caller: Patient Is there a valid authorization to speak with caller? Yes Primary Radiation Oncologist: Dr. Smith Reason for call: Patient is calling in regards to some blood in her urine. She states she has the urge to use the restroom every 10-15 mins, but cant actually urinate. She is requesting a call from Malena to discuss further. Phone number: [phone] Is it okay to leave a voicemail on answering machine with test results? Yes Pharmacy (if medication related): N/A documented in this encounter Plan of Treatment Not on filedocumented as of this encounter Visit Diagnoses Not on filedocumented in this encounter
--- OUTSIDE RECORDS SUMMARY | 2022-04-03 11:25 | XMS_ITS | Encounter Summary ---
:1970 Author Organization [facility] Address [address] [place] [address] Care Team Providers Name Role Phone Unavailable Primary Care Provider Unavailable Encounter Details Date Type Department Care Team Description 02/03/2022 Documentation Department of Radiation Fritz Smith, [place] [address] [phone] (Wo rk) Social History Tobacco Use Types Packs/Day Years [...] or relatives? How often do you attend zoroastrianism or More than 4 times per year 10/31/2021 latter-day services? Do you belong to any clubs or No 10/31/2021 organizations such as zoroastrianism groups, unions, fraternal or athletic groups, or [...] minutes do you engage in exercise at is 30 min 10/31/2021 level? Stress Answer [...] place to sleep or slept in a senior living (including now)? Education Answer Date Recorded What is the highest level of school Bachelor's degree (e.g., BA, AB, 10/31/2021 you have completed or the highest BS) degree you have received? Sex Assigned at Date Recorded Female 10/31/2021 2:05 PM CDT documented as of this encounter Miscellaneous Notes Radiation Completion Notes - Devi Mcgee R.N. - 02/03/2022 11:59 PM CDT DIAGNOSIS: Malignant Neoplasm Of Breast Upper Outer Quadrant Female Left (HCC) Attending Physician: Fritz Smith M.D. ([id number]) Treatment Intent: Curative Concomitant Therapy: Tamoxifen and then likely Abemaciclib. Single Plan Plan ID Fractions Dose / Fraction (cGy) Dose Treated (cGy) Dose Planned (cGy) First Treatment Last Treatment Elapsed Days [id number] 25 / 220 5500 5500 12/30/2021 02/03/2022 35 Course Summary 12/30/2021 02/03/2022 35 Radiation Modality: Photons CLINICAL SUMMARY Mrs. Joceline Uribe completed radiation treatment as planned without interruptions. The course of treatment was tolerated well and with anticipated side effects. The patient experienced toxicities of grade 1 radiation dermatitis and grade 1 noncardiac chest pain during radiation treatment. TREATMENT RESPONSE: Response to treatment will be determined by post-treatment imaging and/or laboratory work. RECOMMENDED FOLLOW UP: Dr. Tim at [facility] Signed by: Devi Avilez R.N., 02/13/2022 1:53 PM CDT [facility] [address] [place] [address] documented in this encounter Plan of Treatment Not on filedocumented as of this encounter Visit Diagnoses Not on filedocumented in this encounter
--- OUTSIDE RECORDS SUMMARY | 2022-04-03 11:25 | XMS_ITS | Encounter Summary ---
:1970 Author Organization [facility] Address [address] [place] [id number] Care Team Providers Name Role Phone Unavailable Primary Care Provider Unavailable Reason for Visit Outpatient (Routine) - Closed Specialty Diagnoses / Procedures Referred By Contact Refer red To Contact Plastic Surgery Diagnoses Julissa Pandya, [facility] P.A., M.S. [address] [place] [address] Referral ID Status Reason Start Date Expiration Date Visits Requ ested Visits Authorized [id number] Closed 10/25/2021 10/25/2022 1 1 Encounter Details Date Type Department Care Team Description 02/25/2022 Office Visit Division of Plastic Marlen Ruvalcaba Afterca re Plastic Surgery (Primary Dx); Surgery in [facility], C.N.P., Lymph edema Post Mastectomy [place] D.N.P. [address] [facility] [address] [place] [phone] Social History Tobacco Use Types Packs/Day Years [...] or relatives? How often do you attend adventist or More than 4 times per year 10/31/2021 zoroastrian services? Do you belong to any clubs or No 10/31/2021 organizations such as adventist groups, unions, fraternal or athletic groups, or [...] place to sleep or slept in a long-term (including now)? Education Answer Date Recorded What is the highest level of school Bachelor's degree (e.g., BA, AB, 10/31/2021 you have completed or the highest BS) degree you have received? Sex Assigned at Date Recorded Female 10/31/2021 2:05 PM CDT documented as of this encounter Progress Notes Marlen Ruvalcaba, CARLY, C.N.P., D.N.P. - 02/25/2022 1:30 PM CDT SUBJECTIVE CHIEF COMPLAINT / REASON FOR VISIT Mrs. Joceline Uribe underwent left axillary lymph node dissection with Dr. Berger, and left axillary venous bypass on 11/12/[address] Saravia. Routine Post Op visit - 3+mo postop HISTORY OF PRESENT ILLNESS Mrs. Joceline Uribe is a very pleasant 51 y.o. female who presents today for a routine postop check. She reports that recovery has been going well and rates her pain 3/10 on chest and axilla that is occasional. She denies signs/symptoms of infection, specifically fevers, chills, malaise, strange drainage from surgical site, or bulging of surgical site. She does note left arm/axilla swelling, lymphedema associated. She will be seeing OT in lymphedema clinic later on today. She reports that she is wearing sleeve compression as instructed. Overall, she is doing well since surgery and have no chief complaints. REVIEW OF SYSTEMS Pertinent items noted in HPI. OBJECTIVE PHYSICAL EXAM General: Patient is alert and oriented x 3. She does not appear to be in acute distress. Very pleasant. Accompanied by her . Left Arm: axillary incision clean, dry and intact without erythema or drainage noted. No obvious signs of fluid accumulation or infection noted. ASSESSMENT / PLAN Mrs. Joceline Uribe underwent left axillary lymph node dissection with Dr. Berger, and left axillary venous bypass on 11/12/[address] Saravia. Routine Post Op visit - 3+mo postop It was a pleasure seeing Joceline Uribe today in the clinic. She is recovering nicely. She is instructed to continue with her previous lymphedema management sleeve. Defer further recommendation to PT/OT.Patient will be seeing OT and lymphedema clinic today. Pain is well managed. No activity or weight re striction; patient is back to baseline activity. Signs/symptoms of an infection were reviewed with the patient and they was instructed to call us immediately if any of these occur. As incisions have fully healed, she is now okay to submerge in water as well. Patient will return to clinic in 2-3 for ICG lymphangiography with Dr. Saravia. Schedulers will reach out to patient to schedule this appointment. Patient has all appropriate phone numbers to call incase she have questions or concerns. Photographs obtained with patient's permission. All questions were asked and answered per patient report. PATIENT EDUCATION Ready to learn, no apparent learning barriers were identified; learning preferences include listening. Explained diagnosis and treatment plan; patient expressed understanding of the content. documented in this encounter Plan of Treatment Not on filedocumented as of this encounter Visit Diagnoses Diagnosis Aftercare Plastic Surgery - Primary Lymphedema Post Mastectomy documented in this encounter
--- OUTSIDE RECORDS SUMMARY | 2022-04-03 11:25 | XMS_ITS | Encounter Summary ---
:1970 Author Organization [facility] Address [address] [place] [address] Care Team Providers Name Role Phone Unavailable Primary Care Provider Unavailable Reason for Referral Physical Therapy (Routine) - Pending Review Specialty Diagnoses / Procedures Referred By Contact Refer red To Contact Diagnoses Lymphedema Post Mastectomy Eber Saravia M.D. [facility] Procedures PT or OT eval and treat (first available) [address] [place] [address] Referral ID Status Reason Start Date Expiration Date Visits V isits Requested Authorized [id number] Pending 02/26/2022 02/26/2023 1 1 Review utpatient (Routine) - Pending Review Specialty Diagnoses / Procedures Referred By Contact Refer red To Contact Diagnoses Lymphedema Post Mastectomy Eber Saravia M.D. [facility] Procedures Minor Misc Procedure [address] [place] [address] Referral ID Status Reason Start Date Expiration Date Visits V isits Requested Authorized [id number] Pending 02/26/2022 02/26/2023 1 1 Review utpatient (Routine) - Pending Review Specialty Diagnoses / Procedures Referred By Contact Refer red To Contact Diagnoses Lymphedema Post Mastectomy Eber Saravia M.D. [facility] Procedures Minor Misc Procedure [address] [place], [place] [address] Referral ID Status Reason Start Date Expiration Date Visits V isits Requested Authorized [id number] Pending 02/26/2022 02/26/2023 1 1 Review Encounter Details Date Type Department Care Team Description 02/26/2022 Orders Only Division of Plastic Juliet Blanco Ly mphedema Post Surgery in [facility]. Mastectomy (Primary [place] 200 [facility] Dx) [address] [place] [phone] Social History Tobacco Use Types Packs/Day Years [...] or relatives? How often do you attend denominational or More than 4 times per year 10/31/2021 mandaen services? Do you belong to any clubs or No 10/31/2021 organizations such as denominational groups, unions, fraternal or athletic groups, or [...] to sleep or slept in a senior care (including now)? Education Answer Date Recorded What is the highest level of school Bachelor's degree (e.g., BA, AB, 10/31/2021 you have completed or the highest BS) degree you have received? Sex Assigned at Date Recorded Female 10/31/2021 2:05 PM CDT documented as of this encounter Plan of Treatment Scheduled Orders Name Type Priority Associated Diagnoses Order S chedule Minor Misc Procedure Procedures Routine Lymphedema Post Expe cted: 05/15/2022 Mastectomy (Approximate), Expires: 2023 Minor Misc Procedure Procedures Routine Lymphedema Post Expe cted: 05/15/2022 Mastectomy (Approximate), Expires: 2023 documented as of this encounter Visit Diagnoses Diagnosis Lymphedema Post Mastectomy - Primary documented in this encounter
--- OUTSIDE RECORDS SUMMARY | 2022-04-03 11:25 | XMS_ITS | Encounter Summary ---
:[address] [facility] Address [address] [place] [address] Care Team Providers Name Role Phone Unavailable Primary Care Provider Unavailable Reason for Visit Radiation Therapy (Routine) - Closed Specialty Diagnoses / Procedures Referred By Contact Refer red To Contact Diagnoses Malignant Neoplasm Of Breast Upper Outer Quadrant Female Left (HCC) Fritz Smith M.D. [facility] Procedures Prior Auth Rad Tx LA IMRT SIMPLE [address] [place], [place] [phone] Referral ID Status Reason Start Date Expiration Date Visits Requ ested Visits Authorized [id number] Closed 10/25/2021 10/25/2022 25 25 Encounter Details Date Type Department Care Team Description 02/03/2022 Hospital Encounter Department of Radiation Jared Smith, [place] [address] [facility] [address] [place] [phone] Social History Tobacco Use Types Packs/Day Years [...] or relatives? How often do you attend restoration or More than 4 times per year 10/31/2021 worship services? Do you belong to any clubs or No 10/31/2021 organizations such as restoration groups, unions, [employer] or athletic groups, or school groups? How [...]
--- OUTSIDE RECORDS SUMMARY | 2022-04-03 11:25 | XMS_ITS | Encounter Summary ---
:1970 Author Organization [facility] Address [address] [place] [address] Care Team Providers Name Role Phone Unavailable Primary Care Provider Unavailable Encounter Details Date Type Department Care Team Description 02/07/2022 Clinical Communication Department of Fritz Smith Radiation Oncology [place] [facility] [address] [facility] [[email or web address] [address] [place] [phone] Social History Tobacco Use Types Packs/Day Years [...] or relatives? How often do you attend baptist or More than 4 times per year 10/31/2021 yazdanism services? Do you belong to any clubs or No 10/31/2021 organizations such as baptist groups, unions, fraternal or athletic groups, or [...] place to sleep or slept in a residential (including now)? Education Answer Date Recorded What is the highest level of school Bachelor's degree (e.g., BA, AB, 10/31/2021 you have completed or the highest BS) degree you have received? Sex Assigned at Date Recorded Female 10/31/2021 2:05 PM CDT documented as of this encounter Miscellaneous Notes Telephone Encounter - Corina Eason R.N. - 02/07/2022 2:05 PM CDT Information Discussed Return to work form PLAN Patient was called today that she would like to return to work. We will therefore complete her FMLA form. Patient will be contacted when form is completed. Disposition/Recommendation: self-care - appropriate at this time, patient encouraged to call back with questions Information/Education: patient/caller able to teach back Caller agreeable to plan of care: yes The following references were used: nursing clinical judgement Telephone Encounter - Subhash Cody - 02/07/2022 10:54 AM CDT Caller: Patient Is there a valid authorization to speak with caller? Yes Primary Radiation Oncologist: Dr. Smith Reason for call: Patient is wondering about a return to work form she had left for Malena/Dr. Tomas fill out and would like a call back with an update. Phone number: [phone] Is it okay to leave a voicemail on answering machine with test results? Yes Pharmacy (if medication related): N/A documented in this encounter Plan of Treatment Not on filedocumented as of this encounter Visit Diagnoses Not on filedocumented in this encounter
--- OUTSIDE RECORDS SUMMARY | 2022-04-03 11:25 | XMS_ITS | Encounter Summary ---
:1970 Author Organization [facility] Address [address] [place] [address] Care Team Providers Name Role Phone Unavailable Primary Care Provider Unavailable Reason for Referral Outpatient (Routine) - Authorized Specialty Diagnoses / Procedures Referred By Contact Refer red To Contact Diagnoses Malignant Neoplasm Of Breast Upper Outer Quadrant Female Left (HCC) Fritz Smith M.D. [address] [place] [address] Referral ID Status Reason Start Expiration Visits Visits Date Date Requested Authorized [id number] Authorized Service not 01/29/2022 01/29/2023 1 1 available in [facility] Radiation Therapy (Routine) - Authorized Specialty Diagnoses / Procedures Referred By Contact Refer red To Contact Diagnoses Malignant Neoplasm Of Breast Upper Outer Quadrant Female Left (HCC) Fritz Smith M.D. [facility] Procedures Management Visit [address] [place], [place] [address] Referral ID Status Reason Start Date Expiration Date Visits V isits Requested Authorized [id number] Authorized 12/19/2021 12/19/2022 10 10 Reason for Visit Radiation Therapy (Routine) - Authorized Specialty Diagnoses / Procedures Referred By Contact Refer red To Contact Diagnoses Malignant Neoplasm Of Breast Upper Outer Quadrant Female Left (HCC) Fritz Smith M.D. [facility] Region Procedures Management Visit [address] [place] [address] Referral ID Status Reason Start Date Expiration Date Visits V isits Requested Authorized [id number] Authorized 12/19/2021 12/19/2022 10 10 Encounter Details Date Type Department Care Team Description 01/29/2022 Hospital Encounter Department of Fritz Smith Neoplasm Radiation Oncology Selma Shah Of Breast Upper in [place], [address] [place], [place] Female Left (HCC) [address] [facility] [id number] [place], [place] [phone] (Work) [phone] Social History Tobacco Use Types Packs/Day Years [...] or relatives? How often do you attend roman catholic or More than 4 times per year 10/31/2021 anabaptism services? Do you belong to any clubs or No 10/31/2021 organizations such as roman catholic groups, unions, fraternal or athletic groups, or [...] place to sleep or slept in a intermediate (including now)? Education Answer Date Recorded What is the highest level of school Bachelor's degree (e.g., BA, AB, 10/31/2021 you have completed or the highest BS) degree you have received? Sex Assigned at Date Recorded Female 10/31/2021 2:05 PM CDT documented as of this encounter Last Filed Vital Signs Vital Sign Reading Time Taken Comments Blood Pressure - - Pulse - - Temperature 36.9 ??C (98.4 ??F) 01/29/2022 3:45 PM CDT Respiratory Rate - - Oxygen Saturation - - Inhaled Oxygen Concentration - - Weight 83.5 kg (184 lb 1.4 oz) 01/29/2022 3:45 PM CDT Height - - Body Mass Index 30.3 11/22/2021 9:49 AM CDT documented in this encounter Medications at Time of Discharge [...] % cream documented as of this encounter Progress Notes Fritz Smith M.D. - 01/29/2022 3:45 PM CDT SUBJECTIVE REASON FOR VISIT Evaluation for side effects while receiving radiation treatment for 1. Malignant Neoplasm Of Breast Upper Outer Quadrant Female Left (HCC) SUPERVISED BY: Dr. Smith HISTORY OF PRESENT ILLNESS Mrs. Joceline Uribe is a 51 y.o. 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 She is now undergoing radiation therapy. Plan ID Fractions Dose / Fraction (cGy) Dose Treated (cGy) Dose Planned (cGy) First Treatment Last Treatment Elapsed Days [id number] 12/30/2021 01/15/2022 16 Course Summary 12/30/2021 01/15/2022 16 Oncology History Malignant Neoplasm Of Breast Upper Outer Quadrant Female Left (HCC) 03/07/2021 Other The patient presented to her primary provider, Dr. Freddie Chao with a chief complaint of left breast dimpling that she first noticed on 02/08/2021. The breast was tender to touch and at times felt itchy. There was no nipple drainage, redness of the skin, or swelling noted. Physical examination demon strated skin dimpling of the left breast at the 1 o'clock position, but no peau d'orange. Diagnosticmammogram and ultrasound was ordered. 03/15/2021 Imaging Bilateral diagnostic mammogram demonstrated a new mass with distortion and spiculated borders measuring 1.7 cm, at the site of palpable concern located at the left axillary tail. No suspicious mass, distortion, or suspicious calcifications in the right breast. Targeted diagnostic left breast ultrasound demonstrated a palpable lump at approximately the 2 o'clock position, 11 cm from the nipple. There was a suspicious solid, hypoechoic mass with irregular, spiculated borders, measuring up to 2.2 cm. Sonographic evaluation of the left axilla demonstrated a suspicious round, hypoechoic structure, suspicious for an abnormal lymph node measuring 1.0 cm. Additional lymph nodes in the adjacent left axilla demonstrated preservation of fatty vani with no definite eccentric, nodular cortical thickening. BI-RADS 5. 03/19/2021 Biopsy/Pathology Ultrasound-guided left breast and left axillary biopsy was performed. PATHOLOGY: A) LEFT BREAST, 2:00, 11 CM FROM NIPPLE, ULTRASOUND-GUIDED CORE BIOPSY: 1. Invasive ductal carcinoma a. Lexy grade: II of III; Lexy score: 7 of 9 b. Angio-lymphatic invasion: Suspicious c. Associated DCIS: Absent 2. Breast Ancillary Testing: a. Hormone Receptors: Estrogen receptor: Positive (96%, strong staining) Progesterone receptor: Positive (76%, moderate staining) b. HER2 by IHC: Equivocal (2+ by manual morphometry) HER2 by FISH: Negative HER2/CEP17 ratio: 1.05 HER2 signals/cell: 2.76 CEP17 signals/cell: 2.64 B) LEFT AXILLA, LYMPH NODE, ULTRASOUND-GUIDED CORE BIOPSY: 1. Fragments of benign lymph node 2. Negative for metastatic carcinoma in this sampling 03/25/2021 Imaging MRI of the bilateral breasts demonstrated in the left breast at approximately the 2 o'clock position, posterior depth, 12 cm from the nipple, there was an irregular mass with irregular margins measuring 2.3 x 2.4 x 2.6 cm. There was a preserved fat plane between the mass and chest wall. This was consistent with the biopsy-proven malignancy. There were no additional suspicious areas of enhancement within the left breast. In the right breast there was an oval mass measuring 1.4 x 0.7 cm, stable compared to prior MRI, consistent with a benign fibroadenoma. There were borderline prominent and rounded left axillary lymph nodes, one of which contained a biopsy marker clip. These appeared numerous on the right side; however, had a similar morphology. They also appeared similar to the prior exam. BI-RADS 6. 04/24/2021 Genetic Testing and Tumor Genotyping She underwent testing with the [employer] 20 gene breast and DIRECTOR OF RESEARCH cancer panel. No genetic mutations. 04/25/2021 Surgery and Procedures Left breast lumpectomy and left axillary sentinel lymph node biopsy was performed by Dr. Katherine Hawthorne. A) LEFT BREAST, LUMPECTOMY: 1. Invasive ductal carcinoma a. Butler grade 3; see comment b. 22 mm in greatest dimension 2. Breast Ancillary Testing: Performed on prior case [id number] a. Hormone Receptors: Estrogen receptor: Positive (96%, strong staining) Progesterone receptor: Positive (76%, moderate staining) b. HER2 by IHC: Equivocal (2+ by manual morphometry) HER2 by FISH: Negative HER2/CEP17 ratio: 1.05 HER2 signals/cell: 2.76 CEP17 signals/cell: 2.64 3. Ductal carcinoma in situ, nuclear grade III 4. Margins a. Invasive carcinoma less than 1 mm from posterior (nearest) margin b. DCIS less that 1 mm from posterior and inferior (nearest) margins c. Next closest margin is lateral, 2 mm from invasive and in situ carcinoma 5. Prior biopsy site changes 6. Please see staging synoptic below B) LEFT BREAST SENTINEL LYMPH NODES, BIOPSY: 1. Metastatic carcinoma in 5 (of 6) lymph nodes a. Largest deposit 11 mm in greatest dimension b. Less than 1 mm of extracapsular extension 2. HER2 by IHC (performed on B8): Negative (1+ by manual morphometry) C) LEFT BREAST, INFERIOR LATERAL MARGINS, RE-EXCISION: 1. Invasive ductal carcinoma, 4 mm in greatest dimension 2. Ductal carcinoma in situ 3. Margins a. Invasive carcinoma 3 mm from inferior (nearest) margin b. DCIS 5 mm from inferior (nearest) margin 4. Please see staging parameters for final integrated margins SPECIMEN Procedure: Excision (less than total mastectomy) Specimen Laterality: Left TUMOR Tumor Site: Clock position : 2 o'clock Tumor Site: Distance from nipple (Centimeters): 11 cm Histologic Type: Invasive carcinoma of no special type (ductal) Glandular (Acinar) / Tubular Differentiation: Score 3 Nuclear Pleomorphism: Score 3 Mitotic Rate: Score 2 Overall Grade: Grade 3 (scores of 8 or 9) Tumor Size: Greatest dimension of largest invasive focus (Millimeters): 22 mm Tumor Focality: Single focus of invasive carcinoma Ductal Carcinoma In Situ (DCIS): Present : Negative for extensive intraductal component (EIC) Architectural Patterns: Comedo Architectural Patterns: Cribriform Nuclear Grade: Grade III (high) Necrosis: Present, central (expansive comedo necrosis) Lobular Carcinoma In Situ (LCIS): Not identified Tumor Extent: Lymphovascular Invasion: Present Dermal Lymphovascular Invasion: No skin present Microcalcifications: Present in non-neoplastic tissue Treatment Effect in the Breast: No known presurgical therapy MARGINS Invasive Carcinoma Margins: Uninvolved by invasive carcinoma Distance from Closest Margin (Millimeters): Less than: 1 mm Closest Margin(s): Posterior DCIS Margins: Uninvolved by DCIS Distance from Closest Margin (Millimeters): Less than: 1 mm Closest Margin(s): Posterior LYMPH NODES Regional Lymph Nodes: Involved by tumor cells Number of Lymph Nodes with Macrometastases (> 2 mm): 4 Number of Lymph Nodes with Micrometastases (> 0.2 mm to 2 mm and / or > 200 cells): 1 Size of Largest Metastatic Deposit (Millimeters): 11 mm Extranodal Extension: Present Extent of Extranodal Extension: Less than or equal to 2 mm Total Number of Lymph Nodes Examined: 6 Number of [place] Nodes Examined: 6 PATHOLOGIC STAGE CLASSIFICATION (pTNM, AJCC 8th Edition) Primary Tumor (pT): pT2 Regional Lymph Nodes (pN): pN2a Ki-67: 14% by image analysis 05/15/[address] scan of the chest, abdomen, and pelvis demonstrated postsurgical changes from recent left lumpectomy and left sentinel node evaluation with likely postoperative seroma in the left axilla measuring 4.9 cm. Indeterminate solitary pulmonary nodule in the left lower lobe, noncalcified, measuring 3.3 mm. Mildly prominent, indeterminate right axillary lymph nodes. No findings of metastatic disease in the abdomen or pelvis. No focal liver lesions or lymphadenopathy. No suspicious bony metastases in thechest, abdomen, or pelvis. 05/23/2021 Imaging Ultrasound of the right axilla demonstrated several axillary lymph nodes. The majority of these demonstrated well-defined vani although deep within the axilla, there were hypoechoic lymph nodes measuring up to 2.0 cm with effacement of the vani, suspicious for tumor involvement. Ultrasound-guided right axillary lymph node biopsy was recommended. 06/05/2021 Biopsy/Pathology A) RIGHT AXILLA, LYMPH NODE, ULTRASOUND-GUIDED CORE BIOPSY: 1. Reactive follicular lymphoid hyperplasia 2. Negative for metastatic carcinoma or lymphoma in this sampling 06/07/2021 - 07/2021 Chemotherapy Dose dense Adriamycin and Cytoxan x 4 cycles under the care of Dr. Sandy Martins. 06/18/2021 Imaging PET-CT scan demonstrated prior left breast lumpectomy with decreased size of residual postop left breast seroma. No suspicious lumpectomy site uptake. Multiple avid left axillary lymph nodes were highly suspicious for metastatic gisell disease. High axillary lymph node measured 1.4 x 0.9 cm, SUV max 10.2. A low axillary lymph node measured 1.5 x 1.2 cm, SUV max 14.4. Left adnexal/ovarian mass with moderate uptake was indeterminate, measuring 2.4 x 1.7 cm, SUV max 9.6. Findings consistent with marrowactivation throughout the spine, pelvis, thorax, and proximal extremities. 07/02/2021 Imaging Ultrasound of the pelvis demonstrated that there was a 1 cm hyperechoic area in the left ovary corresponding to area of calcification on the recent PET-CT. Otherwise the size of the left ovary was within normal limits. Finding may be related to a small dermoid. The visualized right ovary was within normal limits. 08/16/2021 - 09/27/2021 Chemotherapy Paclitaxel x 7 out of a planned 12 weekly doses. She was started on weekly Taxol at 80 mg/m2 on August 16, 2021. She noticed worsening neuropathy with this treatment. When seen on September 27 for week 7, she was concerned about the extent of her symptoms which were making it harder to function. She did receive Taxol that day at a reduced dose of 40 mg/m2. She called in afterwards with worsening symptoms and did not receive treatment week 8. 10/08/2021 Imaging PET-CT scan demonstrated resolution of left axillary adenopathy, SUV max 1.2. Postsurgical changes in the lateral aspect of the left breast, SUV max 3.0. No mediastinal or hilar adenopathy. 3 mm pulmonary nodule in the lateral aspect of the superior segment of the left lower lobe, unchanged. Resolution of the increased activity in the left ovary. Increased activity in the anal canal with no corresponding CT abnormality, SUV max 5.8. 10/11/[address] Martins where the patient continued to be concerned about her neuropathy symptoms. Given her prior spinal cord injury, this is of more concern in terms of affecting her function going forward. They discussed that if she were to stop treatment at this point, Dr. Martins did not feelthat she would require axillary surgery. Her recommendation would be to proceed with radiation to the left breast and also the axilla. After discussion, the decision was made to discontinue chemotherapy. Adjuvant hormone therapy was also discussed and the recommendation was to proceed with tamoxifen, which the patient will start within the next couple of weeks. Plan to check hormone levels and once it was clear that the patient is postmenopausal, plan to transition her to an aromatase inhibitor. Follow-up in 3 months. 11/12/2021 Surgery and Procedures Left axillary level I and II LN dissection by Dr. Berger Left axillary lymphatic venous bypass by Dr. Saravia Multiple (8 of 20) lymph nodes are positive for metastatic mammary ductal carcinoma, including 6 lymph nodes with macrometastasis and 2 lymph nodes with micrometastasis. The largest metastasis measures6 mm. Extranodal extension is present, 2 mm. 12/30/2021 - Radiation Therapy Radiation Therapy Treatment Details (Noted on 12/19/2021) Site: Left Breast Technique: IMRT Goal: Curative Planned Treatment Start Date: 12/30/2021 The patient was seen and examined today with Dr. Smith. The patient reports that she noticed suicidal ideation and depression from December 24 through December 28 while on Gabapentin. She was on a dosage of 200 mg of Gabapentin on December 24; the next day dropped to 100 mg x 3 days; then stopped. She is now longer experiencing depression or suicidal ideation.She is applying moisturizing lotion to the treatment field area at least twice a day. She reports her range of motion in left upper extremity is doing well and not worsening. She rates her back pain atout of 10. She rates left breast discomfort at a 3 out of 10. She takes Ibuprofen on occasion. She denies cough, shortness of breath or seroma or changes in edema in left arm. Itching with in the treatm ent field area is being managed with aloe vera and hydrocortisone 1% ointment. Patient requesting referral to [place] [facility] to not have to commute to [facility]. [place]. PATIENT REPORTED SYMPTOM SCREEN FATIGUE (Scale: 0 = no fatigue; 10 = worst fatigue you can imagine): 5 PAIN (Scale: 0 = no pain; 10 = worst pain you can imagine): 2 OVERALL QUALITY OF LIFE (Scale: 0 = as bad as can be; 10 = as good as can be): 8 OBJECTIVE Temp 36.9 ??C (Temporal) Wt 83.5 kg BMI 30.30 kg/m?? PHYSICAL EXAM General: Alert and oriented in no apparent distress. Skin: Mild erythema to the left inframammary fold and to the upper aspect of left breast. No areas of desquamation or dryness. ASSESSMENT / PLAN #1 Stage IIB (pT2, pN2a, cM0, G3, ER+, UT+, HER2-) invasive ductal carcinoma of the left upper outerbreast s/p lumpectomy and sentinel lymph node biopsy and adjuvant ddAC x4 cycles and paclitaxel x7 cycles #2 Left axillary lymph node dissection on November 12, 2021 with 8 of 20 lymph nodes positive with extranodal extension #3 Cervical spinal cord injury with quadriplegia in 2017, status post cervical fusion, with subsequent neurologic improvement #4 Left upper extremity lymphedema following lumpectomy and sentinel lymph node biopsy and axillary lymph node dissection, moderate #5 Chemotherapy-induced neuropathy #6 Intensity modulated radiotherapy standard fractionated whole breast and regional lymph node with simultaneous integrated boost to the lumpectomy cavity initiated on December 30, 2021; anticipated completion on February 03, 2022 The patient is tolerating radiation treatment well overall. We are encouraged to hear that patient is no longer experiencing suicidal ideation or depression since coming off Gabapentin. Patient was able to visit with OT on January 10, 2022. PM&R appointment is scheduled for February 25, 2022 on our [facility]. Dr. Smith will place referral to [facility] for patient to furtherdiscuss starting abemaciclib after radiation. Patient is to apply moisturizing lotion to treatment field area 4 times a day until skin no longer red. Skin changes should start to heal in 2-3 weeks. Shewill contact us with any questions or concerns. We will continue with radiation treatment as planned. Patient stated a full understanding to the plan of care discussed today. Toxicities reviewed with Dr. Smith today. Signed by: Malena Estevez R.N. 01/29/2022 4:27 PM CDT I saw and evaluated the patient and participated in the light portions of the service. I reviewed the documentation of Malena Estevez R.N. and agree with the findings and plan. The patient appears well onexam. She is here today with her Tyler. She is tolerating treatment well. She is experiencing anticipated side effects including grade 1 radiation dermatitis and grade 1 noncardiac chest pain.She finishes on Thursday. She has a follow-up visit next week with Dr. Martins. She is on tamoxifen andthen will likely be on abemaciclib. She would like to have her ongoing care with Dr. Tim at [facility] because it is closer to her home and Dr. Tim took care of her during his Cancer Journey. I will place a referral to Dr. Tim. We will keep hervisit with Dr. Martins, because it is unlikely that she can see Dr. Tim next week. I also referredher back to physical therapy at [facility] for range of motion exercises for her neck, shoulder, and left chest. I will not plan to schedule any formal follow-up in Radiation Oncology Clinic, but she knows she can contact me at any time with questions or concerns. She verbalized satisfaction with this plan. She will continue with treatment as planned. Signed by: Fritz Smith M.D. 01/29/2022 5:29 PM CDT [facility] [address] [place] [address] documented in this encounter Miscellaneous Notes Addendum Note - Leora Ortez, C.N.A. - 01/29/2022 3:45 PM CDT Encounter addended by: Leora Ortez C.N.A. on: 01/30/2022 10:45 AM Actions taken: Letter saved documented in this encounter Plan of Treatment Scheduled Orders Name Type Priority Associated Diagnoses Order S chedule Management Visit Radiation Oncology Routine Malignant Neoplasm Once for 1 Of Breast Upper Occurrences starting Outer Quadrant 01/29/2022 un til Female Left (HCC) 01/29/2022 Scheduled Referrals Name Type Priority Associated Diagnoses Order S chedule External referral Outpatient Referral Routine Malignant Neopla sm Ordered: physician Of Breast Upper 01/29/2022 (non-[place]) Outer Quadrant Female Left (HCC) documented as of this encounter Visit Diagnoses Diagnosis Malignant Neoplasm Of Breast Upper Outer Quadrant Female Left (HCC) documented in this encounter
--- OUTSIDE RECORDS SUMMARY | 2022-04-03 11:25 | XMS_ITS | Encounter Summary ---
:1970 Author Organization [facility] Address [address] [place] [phone] Care Team Providers Name Role Phone Unavailable Primary Care Provider Unavailable Reason for Visit Occupational Therapy (Routine) - Authorized Specialty Diagnoses / Procedures Referred By Contact Refer red To Contact Diagnoses Lymphedema Post Mastectomy Eber Saravia M.D. [facility] Procedures OT Ongoing Treatment [address] [place] [phone] Referral ID Status Reason Start Date Expiration Date Visits V isits Requested Authorized [id number] Authorized 10/25/2021 10/25/2022 6 6 Encounter Details Date Type Department Care Team Description 02/25/2022 Clinical Support Department of Physical Eber Decker M.D. [address] [place] [phone] Lymphedema Post Medicine and Jeaneth Llamas O.T., CLT-KATHY 200 [place] [phone] Mastectomy Rehabilitation in [place], [place] [address] [place] [phone] Social History Tobacco Use Types Packs/Day Years [...] or relatives? How often do you attend anabaptist or More than 4 times per year 10/31/2021 gnosticist services? Do you belong to any clubs or No 10/31/2021 organizations such as anabaptist groups, unions, fraternal or athletic groups, or [...] place to sleep or slept in a long term (including now)? Education Answer Date Recorded What is the highest level of school Bachelor's degree (e.g., BA, AB, 10/31/2021 you have completed or the highest BS) degree you have received? Sex Assigned at Date Recorded Female 10/31/2021 2:05 PM CDT documented as of this encounter Progress Notes Jeaneth Llamas, O.T., CLT-KATHY - 02/25/2022 3:00 PM CDT Occupational Therapy Cancer Rehabilitation/ Lymphedema Outpatient Progress Note Patient's Name: Joceline Hedricksedrick Uribe Referring Provider: Eber Saravia M.D. Rehab Diagnosis: 1. Lymphedema Post Mastectomy Reason for Referral: Follow-up status post radiation and lymph node dissection History of Present Illness: Patient is a 51 year old female s/p lumpectomy and SLNB on the left (), adjuvant chemotherapy in setting of stage IIB invasive ductal carcinoma. On 11/12/2021 patient had a level 1 to level to left axillary lymph node dissection as well as an LV bypass left axilla. Completed 25 fractions of radiation on 02/03/2022. Onset Date: 11/07/21 Payor: [facility] BLUE SHIELD / Plan: [facility] [employer]IP / Product Type: HMO / SUBJECTIVE Patient reports she has been seen a local lymphedema therapist and a physical therapist to work on upper extremity strengthening range of motion, stretches as well as gait imbalance. She continues to wear her sleeve daily and will periodically use her gauntlet. Total Visit Count: 4 OBJECTIVE Breast: She has mild peau de orange but no fullness in left breast tissue today. No pitting edema: Cording: I can palpate cording in the axilla but it does not interfere with her shoulder range of motion. Skin: Lateral left breast and axilla slightly discolored in radiation field. Skin is intact. She hassome thickening in the axilla and over the pectoralis attachment indicating mild radiation fibrosis. Left shoulder range of motion all within normal limits with 170?? flexion, 150 abduction, 90 external rotation Bio impedance: 11/25/2021: 12.1, 12/19/21: 16.1, 01/10/22: 15.9, 02/25/2022:8.5 TREATMENT Positioned patient in supine. Briefly reviewed home stretching program and practice this with her toinclude overhead flexion, snow Ton for pectoralis major and external rotation stretch. I then had her seated on a chair and taught/performed modified child pose with lateral bend towards the right. [place] ggested she perform the stretch daily incorporating deep breathing and holding the stretch for at least 30 seconds. Since she is seen local physical therapy I suggested that they start a home exercise program to include Lat pull, rhomboid strengthening as well as pectoralis major strengthening. She agrees to review this with them. Educated patient on the importance of stretching and strengthening over the next 3-6 months to prevent significant radiation fibrosis. In terms of edema, I can appreciate no edema in the left upper extremity today. Her bio impedance iswithin normal limits. She had questions about adhesive capsulitis and I note no symptoms indicating this today. Assessment Pleasant 51-year-old woman seen with supportive spouse. She has excellent left shoulder range of motion. I can appreciate mild radiation fibrosis within the axilla and pectoralis muscle but the range of motion is full She has a home stretching program. She is also seen a local physical therapist and Imade recommendations for strengthening to the chest wall and upper back that they can follow throughwith. Noted no upper extremity lymphedema today bio impedance within normal limits as are circumferentials. Functional Goals and Timeframe's: Goal #1: Patient will be independent with this effective lymphedema management plan. Goal #1 Date: 05/26/22 Goal #1 Status: Progressing Goal #2: Patient will demonstrate full and symmetric shoulder range of motion to complete activitiesof daily living pain free and in preparation for radiation Goal #2 Date: 02/05/22 Goal #2 Status: Met Goal #3: Patient to demonstrate decreased fullness in left axilla and breast via a well-fitting bra and pad, possibly massage Goal #3 Date: 03/19/22 Goal #3 Status: Met Plan TREATMENT PLAN Number of Visits: up to 6 visits Plan: Continue with current plan Plan Comments: Follow-up when she returns for other appointments in approximately 3 months. Assess bio impedance circumferential and range of motion Treatment interventions may include: Therapeutic exercise, Therapeutic functional activity Daytime Compression Program Additional Details: arm sleeve and glove as needed, well fitting bra with pad Nighttime Compression Program: None OT: Time Spent with Patient Evaluations OT Re-Eval (min) : 13 min Therapeutic Interventions Therapeutic Exercise (min): 25 min Time Tracking Total Timed Units (min): 25 min Total Treatment Time (min): 38 min Jeaneth Llamas O.T., ALICE documented in this encounter Plan of Treatment Not on filedocumented as of this encounter Visit Diagnoses Diagnosis Lymphedema Post Mastectomy documented in this encounter
--- OUTSIDE RECORDS SUMMARY | 2022-04-03 11:25 | XMS_ITS | Encounter Summary ---
:1970 Author Organization [facility] Address [address] [place] [address] Care Team Providers Name Role Phone Unavailable Primary Care Provider Unavailable Encounter Details Date Type Department Care Team Description 02/25/2022 Ancillary Procedure Department of Plastic and Reconstructive Surgery Social History Tobacco Use Types Packs/Day Years [...] or relatives? How often do you attend episcopal or More than 4 times per year 10/31/2021 presybeterian services? Do you belong to any clubs or No 10/31/2021 organizations such as episcopal groups, unions, fraternal or athletic groups, or [...] place to sleep or slept in a group home (including now)? Education Answer Date Recorded What is the highest level of school Bachelor's degree (e.g., BA, AB, 10/31/2021 you have completed or the highest BS) degree you have received? Sex Assigned at Date Recorded Female 10/31/2021 2:05 PM CDT documented as of this encounter Plan of Treatment Not on filedocumented as of this encounter Procedures Procedure Name Priority Date/Time Associated Diagnosis Comme nts PLASTIC AND RECON Routine 02/25/2022 12:00 PM Res ults for this SURGERY IMAGE EXAM CDT procedure are in the results section. documented in this encounter Results Arms Lymphaticovenous Bypass-Plastic And Recon Surgery [...] Organization Address City/State/ZIP Code Phon e Number IIMS I[facility]S NA documented in this encounter Visit Diagnoses Not on filedocumented in this encounter
--- OUTSIDE RECORDS SUMMARY | 2022-04-03 11:25 | XMS_ITS | Encounter Summary ---
:1970 Author Organization [facility] Address [address] [place] [address] Care Team Providers Name Role Phone Unavailable Primary Care Provider Unavailable Reason for Visit Radiation Therapy (Routine) - Closed Specialty Diagnoses / Procedures Referred By Contact Refer red To Contact Diagnoses Malignant Neoplasm Of Breast Upper Outer Quadrant Female Left (HCC) Fritz Smith M.D. [facility] Procedures Prior Auth Rad Tx OR IMRT SIMPLE [address] [place], [place] [phone] Referral ID Status Reason Start Date Expiration Date Visits Requ ested Visits Authorized [id number] Closed 10/25/2021 10/25/2022 25 25 Encounter Details Date Type Department Care Team Description 01/27/2022 Hospital Encounter Department of Radiation Jared [place], [place] [address] [facility] [address] [place] [phone] Social History Tobacco Use Types Packs/Day Years [...] or relatives? How often do you attend hoahaoism or More than 4 times per year 10/31/2021 presybeterian services? Do you belong to any clubs or No 10/31/2021 organizations such as hoahaoism groups, unions, fracVidya or athletic groups, or school groups? How [...] place to sleep or slept in a detention (including now)? Education Answer Date Recorded What [...]
--- OUTSIDE RECORDS SUMMARY | 2022-04-03 11:26 | XMS_ITS | Encounter Summary ---
:1970 Author Organization [facility] Address [address] [place] [address] Care Team Providers Name Role Phone Unavailable Primary Care Provider Unavailable Reason for Visit Radiation Therapy (Routine) - Closed Specialty Diagnoses / Procedures Referred By Contact Refer red To Contact Diagnoses Malignant Neoplasm Of Breast Upper Outer Quadrant Female Left (HCC) Fritz Smith M.D. [facility] Procedures Prior Auth Rad Tx [place] IMRT SIMPLE [address] [place], [place] [phone] Referral ID Status Reason Start Date Expiration Date Visits Requ ested Visits Authorized [id number] Closed 10/25/2021 10/25/2022 25 25 Encounter Details Date Type Department Care Team Description 01/03/2022 Hospital Encounter Department of Radiation Jared [place], [place] [address] [facility] [address] [place] [phone] Social History Tobacco Use Types Packs/Day Years [...] or relatives? How often do you attend baptism or More than 4 times per year 10/31/2021 mandaeism services? Do you belong to any clubs or No 10/31/2021 organizations such as baptism groups, unions, fraBeat Freak Music Group or athletic groups, or school groups? How [...] 0 0 05/22/2021 tablet daily. cholecalciferol (VITAMIN daily. 0 11/25/2021 D3) 50 mcg (2,000 Unit) capsule famotidine (PEPCID) 20 mg Take 20 mg by mouth 0 0 08/30/2021 tablet daily. L.acid/L.casei/B.bif/B.lo daily. 0 11/25/2021 n/FOS (PROBIOTIC BLEND ORAL) levothyroxine (SYNTHROID, Take 75 mcg by 0 2020 LEVOTHROID) 75 mcg tablet mouth every morning before breakfast. PreviDent 5000 Booster daily. 0 12/02/2021 Plus 1.1 % paste dental paste tamoxifen (NOLVADEX) 20 Take 20 mg by mouth 0 mg tablet daily. triamcinolone (KENALOG) as needed. 0 09/06/2021 0.1 % cream gabapentin (NEURONTIN) Take 1 capsule (100 30 capsule 0 08/0 09/202101/06/2022 100 mg capsule mg total) by mouth at bedtime. Increasing by 100 mg every 3-5 days up to 300 mg documented as of this encounter Plan of Treatment Not on filedocumented as of this encounter Visit Diagnoses Not on filedocumented in this encounter
--- OUTSIDE RECORDS SUMMARY | 2022-04-03 11:26 | XMS_ITS | Encounter Summary ---
:1970 Author Organization [facility] Address [address] [place] [address] Care Team Providers Name Role Phone Unavailable Primary Care Provider Unavailable Reason for Visit Radiation Therapy (Routine) - Closed Specialty Diagnoses / Procedures Referred By Contact Refer red To Contact Diagnoses Malignant Neoplasm Of Breast Upper Outer Quadrant Female Left (HCC) Fritz Smith M.D. [facility] Procedures Prior Auth Rad Tx [place] IMRT SIMPLE [address] [place], [place] [phone] Referral ID Status Reason Start Date Expiration Date Visits Requ ested Visits Authorized [id number] Closed 10/25/2021 10/25/2022 25 25 Encounter Details Date Type Department Care Team Description 01/07/2022 Hospital Encounter Department of Radiation Jared Smith, [place] [address] [facility] [address] [place] [phone] Social History Tobacco Use Types Packs/Day Years [...] or relatives? How often do you attend yazidi or More than 4 times per year 10/31/2021 mu-ism services? Do you belong to any clubs or No 10/31/2021 organizations such as yazidi groups, unions, fraStoreDot or athletic groups, or school groups? How [...] place to sleep or slept in a penitentiary (including now)? Education Answer Date Recorded What [...]
--- OUTSIDE RECORDS SUMMARY | 2022-04-03 11:26 | XMS_ITS | Encounter Summary ---
:1970 Author Organization [facility] Address [address] [place] [address] Care Team Providers Name Role Phone Unavailable Primary Care Provider Unavailable Reason for Visit Radiation Therapy (Routine) - Closed Specialty Diagnoses / Procedures Referred By Contact Refer red To Contact Diagnoses Malignant Neoplasm Of Breast Upper Outer Quadrant Female Left (HCC) Fritz Smith M.D. [facility] Procedures Prior Auth Rad Tx [place] IMRT SIMPLE [address] [place], [place] [phone] Referral ID Status Reason Start Date Expiration Date Visits Requ ested Visits Authorized [id number] Closed 10/25/2021 10/25/2022 25 25 Encounter Details Date Type Department Care Team Description 01/06/2022 Hospital Encounter Department of Radiation Jared Smith, [place] [address] [facility] [address] [place] [address] [phone] Social History Tobacco Use Types Packs/Day Years [...] or relatives? How often do you attend sikh or More than 4 times per year 10/31/2021 yazidism services? Do you belong to any clubs or No 10/31/2021 organizations such as sikh groups, unions, fraMicrofabrica or athletic groups, or school groups? How [...] place to sleep or slept in a snf (including now)? Education Answer Date Recorded What [...]
--- OUTSIDE RECORDS SUMMARY | 2022-04-03 11:26 | XMS_ITS | Encounter Summary ---
:1970 Author Organization [facility] Address [address] [place] [address] Care Team Providers Name Role Phone Unavailable Primary Care Provider Unavailable Reason for Referral Radiation Therapy (Routine) - Authorized Specialty Diagnoses / Procedures Referred By Contact Refer red To Contact Diagnoses Malignant Neoplasm Of Breast Upper Outer Quadrant Female Left (HCC) Fritz Smith M.D. [facility] Procedures Management Visit [address] [place] [address] Referral ID Status Reason Start Date Expiration Date Visits V isits Requested Authorized [id number] Authorized 12/19/2021 12/19/2022 10 10 Reason for Visit Radiation Therapy (Routine) - Authorized Specialty Diagnoses / Procedures Referred By Contact Refer red To Contact Diagnoses Malignant Neoplasm Of Breast Upper Outer Quadrant Female Left (HCC) Fritz Smith M.D. [facility] Procedures Management Visit [address] [place] [phone] Referral ID Status Reason Start Date Expiration Date Visits V isits Requested Authorized [id number] Authorized 12/19/2021 12/19/2022 10 10 Encounter Details Date Type Department Care Team Description 01/22/2022 Hospital Encounter Department of Fritz Smith Neoplasm Radiation Oncology [place] Of Breast Upper in [place], [address] [facility] [place] Female Left (HCC) [address] [facility] [address] [place], [place] [phone] (Work) [phone] Social History Tobacco Use Types Packs/Day Years [...] or relatives? How often do you attend hindu or More than 4 times per year 10/31/2021 roman catholic services? Do you belong to any clubs or No 10/31/2021 organizations such as hindu groups, unions, fraternal or athletic groups, or [...] place to sleep or slept in a chcf (including now)? Education Answer Date Recorded What is the highest level of school Bachelor's degree (e.g., BA, AB, 10/31/2021 you have completed or the highest BS) degree you have received? Sex Assigned at Date Recorded Female 10/31/2021 2:05 PM CDT documented as of this encounter Last Filed Vital Signs Vital Sign Reading Time Taken Comments Blood Pressure - - Pulse - - Temperature 36.6 ??C (97.9 ??F) 01/22/2022 3:43 PM CDT Respiratory Rate - - Oxygen Saturation - - Inhaled Oxygen Concentration - - Weight 83.1 kg (183 lb 3.2 oz) 01/22/2022 3:43 PM CDT Height - - Body Mass Index 30.16 11/22/2021 9:49 AM CDT documented in this encounter Medications at Time of Discharge Medication Sig Dispensed Refills Start Date End Date baclofen (LIORESAL) 10 mg TAKE 1-2 TABLETS 0 05/10/2021 tablet (10-20 MG) BY MOUTH ONCE DAILY [...] encounter Progress Notes Fritz Smith M.D. - 01/22/2022 3:45 PM CDT SUBJECTIVE REASON FOR VISIT Evaluation for side effects while receiving radiation treatment for 1. Malignant Neoplasm Of Breast Upper Outer Quadrant Female Left (HCC) SUPERVISED BY: Dr. Smith HISTORY OF PRESENT ILLNESS Mrs. Joceline Uribe is a 51 y.o. female with stage IIB (pT2, pN2a, cM0, G3, ER+, AK+, HER2-)invasive ductal carcinoma of the left upper outer breast s/p lumpectomy and sentinel lymph node biopsy and adjuvant ddAC x4 cycles and paclitaxel x7 of 12 planned cycles. She is now undergoing radiation therapy. Plan ID Fractions Dose / Fraction (cGy) Dose Treated (cGy) Dose Planned (cGy) First Treatment Last Treatment Elapsed Days [id number] 12/30/2021 01/15/2022 16 Course Summary 12/30/2021 01/15/2022 16 The patient was seen and examined today [...] longer experiencing depression or suicidal ideation.She is now taking Pepcid twice a day and this is helping to manage heartburn sensation. She is applying moisturizing lotion to the treatment field area at least twice a day. She is requesting continuous leave of absence letter for her employer. Patient is now taking time off work due to treatment, side effects and recovery period as well. PATIENT REPORTED SYMPTOM SCREEN FATIGUE (Scale: 0 = no fatigue; 10 = worst fatigue you can imagine): 5 PAIN (Scale: 0 = no pain; 10 = worst pain you can imagine): 2 OVERALL QUALITY OF LIFE (Scale: 0 = as bad as can be; 10 = as good as can be): 8 OBJECTIVE Temp 36.6 ??C (Temporal) Wt 83.1 kg BMI 30.16 kg/m?? PHYSICAL EXAM General: Alert and oriented in no apparent distress. Skin: Minimal erythema to the left inframammary fold and left breast. No areas of desquamation or dryness. ASSESSMENT / PLAN #1 Stage IIB (pT2, pN2a, cM0, G3, ER+, AK+, HER2-) invasive ductal carcinoma of the left [...] scheduled for February 25, 2022 on our [facility]. We have provided patient with letter for continuous leave of absence today. We willsee patient in weekly management visits and continues to reassess. She will contact us with any questions or concerns. We will continue with radiation treatment as planned. Signed by: Malena Estevez R.N. 01/22/2022 3:55 PM CDT I saw and evaluated the patient and participated in the light portions of the service. I reviewed the documentation of Malena Estevez R.N. and agree with the findings and plan. The patient appears well onexam. She is experiencing some mild esophagitis that she rates at 1 to 2/10. She is taking Pepcid with some benefit. She will continue with treatment as planned. Signed by: Fritz Smith M.D. 01/22/2022 5:02 PM CDT [facility] [address] [place] [address] documented in this encounter Plan of Treatment Scheduled Orders Name Type Priority Associated Diagnoses Order S chedule Management Visit Radiation Oncology Routine Malignant Neoplasm Once for 1 Of Breast Upper Occurrences starting Outer Quadrant 01/22/2022 un til Female Left (HCC) 01/22/2022 documented as of this encounter Visit Diagnoses Diagnosis Malignant Neoplasm Of Breast Upper Outer Quadrant Female Left (HCC) documented in this encounter
--- OUTSIDE RECORDS SUMMARY | 2022-04-03 11:26 | XMS_ITS | Encounter Summary ---
:1970 Author Organization [facility] Address [address] [place] [address] Care Team Providers Name Role Phone Unavailable Primary Care Provider Unavailable Reason for Visit Radiation Therapy (Routine) - Closed Specialty Diagnoses / Procedures Referred By Contact Refer red To Contact Diagnoses Malignant Neoplasm Of Breast Upper Outer Quadrant Female Left (HCC) Fritz Smith M.D. [facility] Procedures Prior Auth Rad Tx [place] IMRT SIMPLE [address] [place], [place] [phone] Referral ID Status Reason Start Date Expiration Date Visits Requ ested Visits Authorized [id number] Closed 10/25/2021 10/25/2022 25 25 Encounter Details Date Type Department Care Team Description 01/16/2022 Hospital Encounter Department of Radiation Jared Smith, [place] [address] [facility] [address] [place] [phone] Social History Tobacco Use Types Packs/Day Years [...] 10/31/2021 organizations such as uatsdin groups, unions, fraLinguee or athletic groups, or school groups? How [...]
--- OUTSIDE RECORDS SUMMARY | 2022-04-03 11:26 | XMS_ITS | Encounter Summary ---
:[address] [facility] Address [address] [place] [address] Care Team Providers Name Role Phone Unavailable Primary Care Provider Unavailable Reason for Visit Radiation Therapy (Routine) - Closed Specialty Diagnoses / Procedures Referred By Contact Refer red To Contact Diagnoses Malignant Neoplasm Of Breast Upper Outer Quadrant Female Left (HCC) Fritz Smith M.D. [facility] Procedures Prior Auth Rad Tx [place] IMRT SIMPLE [address] [place], [place] [phone] Referral ID Status Reason Start Date Expiration Date Visits Requ ested Visits Authorized [id number] Closed 10/25/2021 10/25/2022 25 25 Encounter Details Date Type Department Care Team Description 01/08/2022 Hospital Encounter Department of Radiation Jared Smith, [place] [address] [facility] [address] [place] [address] [phone] Social History Tobacco Use Types Packs/Day Years [...] 10/31/2021 organizations such as mandaeism groups, unions, fraAngle or athletic groups, or school groups? How [...] place to sleep or slept in a prison (including now)? Education Answer Date Recorded What [...]
--- OUTSIDE RECORDS SUMMARY | 2022-04-03 11:26 | XMS_ITS | Encounter Summary ---
:1970 Author Organization [facility] Address [address] [place] [address] Care Team Providers Name Role Phone Unavailable Primary Care Provider Unavailable Reason for Referral Radiation Therapy (Routine) - Authorized Specialty Diagnoses / Procedures Referred By Contact Refer red To Contact Diagnoses Malignant Neoplasm Of Breast Upper Outer Quadrant Female Left (HCC) Fritz Smith M.D. [facility] Procedures Management Visit [address] [place] [address] Referral ID Status Reason Start Date Expiration Date Visits V isits Requested Authorized [id number] Authorized 12/19/2021 12/19/2022 10 10 Reason for Visit Radiation Therapy (Routine) - Authorized Specialty Diagnoses / Procedures Referred By Contact Refer red To Contact Diagnoses Malignant Neoplasm Of Breast Upper Outer Quadrant Female Left (HCC) Fritz Smith M.D. [facility] Procedures Management Visit [address] [place], [place] [address] Referral ID Status Reason Start Date Expiration Date Visits V isits Requested Authorized [id number] Authorized 12/19/2021 12/19/2022 10 10 Encounter Details Date Type Department Care Team Description 12/31/2021 Hospital Encounter Department of Ashley Guerrero Neoplasm Radiation Oncology I., M.D. Of Breast Upper in [place] [address] [address] [facility], [place] Female Left (HCC) [address] [facility] [address] [place], [place] [phone] (Work) [phone] Social History Tobacco Use Types Packs/Day Years [...] or relatives? How often do you attend cheondoism or More than 4 times per year 10/31/2021 yarsanism services? Do you belong to any clubs or No 10/31/2021 organizations such as cheondoism groups, unions, fraternal or athletic groups, or [...] place to sleep or slept in a mcc (including now)? Education Answer Date Recorded What [...] Take 1 capsule (100 30 capsule 0 /0 09/202101/06/2022 100 mg capsule mg total) by mouth at bedtime. Increasing by 100 mg every 3-5 days up to 300 mg documented as of this encounter Progress Notes Ashley Guerrero M.D. - 12/31/2021 3:15 PM CDT ATTESTATION FOR MANAGEMENT VISIT I saw and evaluated the patient and participated in the light portions of the service as noted below. I reviewed the documentation of Ms. Malena Estevez RN and agree with the findings and plan. The patient appears well on exam. We will continue with radiation as planned and monitor weekly. Ashley Guerrero M.D., 12/31/2021 SUBJECTIVE REASON FOR VISIT Evaluation for side effects while receiving radiation treatment for 1. Malignant Neoplasm Of Breast Upper Outer Quadrant Female Left (HCC) SUPERVISED BY: Ashley Guerrero M.D. HISTORY OF PRESENT ILLNESS Mrs. Joceline Uribe is a 51 y.o. 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 She is now undergoing radiation therapy. Treatment Course: 1xBreastL Plan ID Fractions Dose / Fraction (cGy) Dose Treated (cGy) Dose Planned (cGy) First Treatment Last Treatment Elapsed Days [id number] [id number] 12/30/2021 12/31/2021 1 Course Summary 12/30/2021 12/31/2021 1 The patient was seen and examined today with Dr. Guerrero. The patient reports that she noticed suicidal ideation and depression from December 24 through December 28 while on Gabapentin. She was on a dosage of 200 mg of Gabapentin on December 24; the next day dropped to 100 mg x 3 days; then stopped. She is now longer experiencing depression or suicidal ideation.She denies wanting to harm herself or others; she denies access to firearms. She denies fevers or chills. She rates her nerve pain since surgery to the left hand at a 2 out of 10 today. She describes the pain as stabbing. She does notice hot flashes. PATIENT REPORTED SYMPTOM SCREEN FATIGUE (Scale: 0 = no fatigue; 10 = worst fatigue you can imagine): 3 PAIN (Scale: 0 = no pain; 10 = worst pain you can imagine): 2 OVERALL QUALITY OF LIFE (Scale: 0 = as bad as can be; 10 = as good as can be): 8 OBJECTIVE There were no vitals taken for this visit. PHYSICAL EXAM General: Alert and oriented in no apparent distress. ASSESSMENT / PLAN #1 Stage IIB (pT2, pN2a, cM0, G3, ER+, MA+, HER2-) invasive ductal carcinoma of the left [...] cavity initiated on December 30, 2021; anticipated dateof completion is on February 03, 2022 The patient is tolerating radiation treatment well overall. We are encouraged to hear that patient is no longer experiencing suicidal ideation or depression since coming off Gabapentin. We will see patient in weekly management visits and continues to reassess. She will contact us with any questions orconcerns. We will continue with radiation treatment as planned. Signed by: Malena Estevez R.N. 12/31/2021 4:43 PM CDT documented in this encounter Plan of Treatment Scheduled Orders Name Type Priority Associated Diagnoses Order S chedule Management Visit Radiation Oncology Routine Malignant Neoplasm Once for 1 Of Breast Upper Occurrences starting Outer Quadrant 12/31/2021 un til Female Left (HCC) 12/31/2021 documented as of this encounter Visit Diagnoses Diagnosis Malignant Neoplasm Of Breast Upper Outer Quadrant Female Left (HCC) documented in this encounter
--- OUTSIDE RECORDS SUMMARY | 2022-04-03 11:26 | XMS_ITS | Encounter Summary ---
:1970 Author Organization [facility] Address [address] [place] [address] Care Team Providers Name Role Phone Unavailable Primary Care Provider Unavailable Reason for Visit Radiation Therapy (Routine) - Closed Specialty Diagnoses / Procedures Referred By Contact Refer red To Contact Diagnoses Malignant Neoplasm Of Breast Upper Outer Quadrant Female Left (HCC) Fritz Smith M.D. [facility] Procedures Prior Auth Rad Tx MD IMRT SIMPLE [address] [place], [place] [phone] Referral ID Status Reason Start Date Expiration Date Visits Requ ested Visits Authorized [id number] Closed 10/25/2021 10/25/2022 25 25 Encounter Details Date Type Department Care Team Description 01/10/2022 Hospital Encounter Department of Radiation Jared Smith, [place]cology [place] [address] [facility] [address] [place] [phone] Social History Tobacco Use Types Packs/Day Years [...] or relatives? How often do you attend faith or More than 4 times per year 10/31/2021 zoroastrian services? Do you belong to any clubs or No 10/31/2021 organizations such as faith groups, unions, fraSprinklr or athletic groups, or school groups? How [...]
--- OUTSIDE RECORDS SUMMARY | 2022-04-03 11:26 | XMS_ITS | Encounter Summary ---
:1970 Author Organization [facility] Address [address] [place] [address] Care Team Providers Name Role Phone Unavailable Primary Care Provider Unavailable Reason for Visit Radiation Therapy (Routine) - Closed Specialty Diagnoses / Procedures Referred By Contact Refer red To Contact Diagnoses Malignant Neoplasm Of Breast Upper Outer Quadrant Female Left (HCC) Fritz Smith M.D. [facility] Procedures Prior Auth Rad Tx [place] IMRT SIMPLE [address] [place], [place] [phone] Referral ID Status Reason Start Date Expiration Date Visits Requ ested Visits Authorized [id number] Closed 10/25/2021 10/25/2022 25 25 Encounter Details Date Type Department Care Team Description 01/01/2022 Hospital Encounter Department of Radiation Jared Smith, [place]cology [place] [address] [facility] [address] [place] [phone] Social History Tobacco Use Types Packs/Day Years [...] or relatives? How often do you attend oriental orthodox or More than 4 times per year 10/31/2021 hoahaoism services? Do you belong to any clubs or No 10/31/2021 organizations such as oriental orthodox groups, unions, fraDomo Safety or athletic groups, or school groups? How [...]
--- OUTSIDE RECORDS SUMMARY | 2022-04-03 11:26 | XMS_ITS | Encounter Summary ---
:1970 Author Organization [facility] Address [address] [place] [address] Care Team Providers Name Role Phone Unavailable Primary Care Provider Unavailable Reason for Referral Specialty Diagnoses / Procedures Referred By Contact Refer red To Contact Fritz Smith M .D. [facility] [address] [place] [phone] Referral ID Status Reason Start Date Expiration Date Visits Requ ested Visits Authorized Encounter Details Date Type Department Care Team Description 01/06/2022 Hospital Encounter Department of Chivo Smith M.D. [address] [place] [phone] Malignant Neoplasm Radiation Oncology Malena Estevez R.N. [address] [place] [phone] Of Breast Upper in [facility] Female Left (HCC) [address] [place] [phone] Social History Tobacco Use Types Packs/Day Years [...] or relatives? How often do you attend synagogue or More than 4 times per year 10/31/2021 voodoo services? Do you belong to any clubs or No 10/31/2021 organizations such as synagogue groups, unions, fraternal or athletic groups, or [...] place to sleep or slept in a retirement (including now)? Education Answer Date Recorded What [...] (LIORESAL) 10 mg TAKE 1-2 TABLETS 0 0510/2021 tablet (10-20 MG) BY MOUTH ONCE DAILY [...] documented as of this encounter Progress Notes Corina Eason R.N. - 01/06/2022 11:15 AM CDT Patient was educated on side effects of radiation therapy. Their questions were answered to the bestof my ability. The patient was encouraged to contact the team at any point, with questions or concerns. documented in this encounter Plan of Treatment Scheduled Referrals Name Type Priority Associated Order Schedule Diagnoses Radiation Oncology Outpatient Referral Routine Malignant Neopl asm Once for 1 - Nurse education Of Breast Upper Occurre nces starting visit (clinic) Outer Quadrant 01/06/2022 until Female Left (HCC) 01/06/2022 documented as of this encounter Visit Diagnoses Diagnosis Malignant Neoplasm Of Breast Upper Outer Quadrant Female Left (HCC) documented in this encounter
--- OUTSIDE RECORDS SUMMARY | 2022-04-03 11:26 | XMS_ITS | Encounter Summary ---
:1970 Author Organization [facility] Address [address] [place] [address] Care Team Providers Name Role Phone Unavailable Primary Care Provider Unavailable Reason for Visit Radiation Therapy (Routine) - Closed Specialty Diagnoses / Procedures Referred By Contact Refer red To Contact Diagnoses Malignant Neoplasm Of Breast Upper Outer Quadrant Female Left (HCC) Fritz Smith M.D. [facility] Procedures Prior Auth Rad Tx [place] IMRT SIMPLE [address] [place], [place] [phone] Referral ID Status Reason Start Date Expiration Date Visits Requ ested Visits Authorized [id number] Closed 10/25/2021 10/25/2022 25 25 Encounter Details Date Type Department Care Team Description 01/09/2022 Hospital Encounter Department of Radiation Jared Smith, [place]cology [place] [address] [facility] [address] [place] [phone] Social History Tobacco Use Types Packs/Day Years [...] 10/31/2021 organizations such as zoroastrianism groups, unions, frajudo or athletic groups, or school groups? How [...]
--- OUTSIDE RECORDS SUMMARY | 2022-04-03 11:26 | XMS_ITS | Encounter Summary ---
:1970 Author Organization [facility] Address [address] [place] [address] Care Team Providers Name Role Phone Unavailable Primary Care Provider Unavailable Reason for Visit Radiation Therapy (Routine) - Closed Specialty Diagnoses / Procedures Referred By Contact Refer red To Contact Diagnoses Malignant Neoplasm Of Breast Upper Outer Quadrant Female Left (HCC) Fritz Smith M.D. [facility] Procedures Prior Auth Rad Tx [place] IMRT SIMPLE [address] [place], [place] [phone] Referral ID Status Reason Start Date Expiration Date Visits Requ ested Visits Authorized [id number] Closed 10/25/2021 10/25/2022 25 25 Encounter Details Date Type Department Care Team Description 01/22/2022 Hospital Encounter Department of Radiation Jared Smith, Oncology [place] [address] [facility] [address] [place] [phone] Social History Tobacco Use Types Packs/Day Years [...] More than 4 times per year 10/31/2021 restorationism services? Do you belong to any clubs or No 10/31/2021 organizations such as hoahaoism groups, unions, fraSwivel or athletic groups, or school groups? How [...] place to sleep or slept in a custodial (including now)? Education Answer Date Recorded What [...]
--- OUTSIDE RECORDS SUMMARY | 2022-04-03 11:26 | XMS_ITS | Encounter Summary ---
:1970 Author Organization [facility] Address [address] [place] [address] Care Team Providers Name Role Phone Unavailable Primary Care Provider Unavailable Reason for Visit Occupational Therapy (Routine) - Authorized Specialty Diagnoses / Procedures Referred By Contact Refer red To Contact Diagnoses Lymphedema Post Mastectomy Eber Saravia M.D. [facility] Procedures OT Ongoing Treatment [address] [place] [phone] Referral ID Status Reason Start Date Expiration Date Visits V isits Requested Authorized [id number] Authorized 10/25/2021 10/25/2022 6 6 Encounter Details Date Type Department Care Team Description 01/10/2022 Clinical Support Department of Physical Eber Decker M.D. [address] [place] [phone] Lymphedema Post Medicine and Jeaneth Llamas O.T., CLT-KATHY [address] [place] [phone] Mastectomy Rehabilitation in [place], [place] [address] [place] [phone] Social History Tobacco Use Types Packs/Day [...] or relatives? How often do you attend christian or More than 4 times per year 10/31/2021 voodoo services? Do you belong to any clubs or No 10/31/2021 organizations such as christian groups, unions, fraternal or athletic groups, or [...] place to sleep or slept in a correction (including now)? Education Answer Date Recorded What is the highest level of school Bachelor's degree (e.g., BA, AB, 10/31/2021 you have completed or the highest BS) degree you have received? Sex Assigned at Date Recorded Female 10/31/2021 2:05 PM CDT documented as of this encounter Progress Notes Jeaneth Llamas, O.T., CLT-KATHY - 01/10/2022 8:00 AM CDT Images from the original note were not included. Occupational Therapy Lymphedema Outpatient Progress Note Patient's Name: Joceline Hedricksedrick Uribe Referring Provider: Eber Saravia M.D. Rehab Diagnosis: 1. Lymphedema Post Mastectomy Reason for Referral: OT assessment post lva History of Present Illness: Patient is a 51 year old female s/p lumpectomy and SLNB on the left (), adjuvant chemotherapy in setting of stage IIB invasive ductal carcinoma. On 11/12/2021 patient had a level 1 to level to left axillary lymph node dissection as well as an LV bypass left axilla. Onset Date: 11/07/21 Payor: BLUE CROSS BLUE SHIELD / Plan: [employer] / Product Type: HMO / SUBJECTIVE Patient reports she did not Don her sleeve this morning as she knew she was coming to therapy. Patient reports her fatigue has increased with radiation but she is initiating energy conservation techniques with naps in the afternoon. Total Visit Count: 3 OBJECTIVE Bio impedance: 11/25/2021: 12.1, 12/19/21: 16.1, 01/10/22: 15.9 Left shoulder range of motion: Flexion 170, external rotation 100, beyond neutral, abduction 150 Edema: Note no edema by visualization today, or palpation in upper extremity. Left breast edema wellmanaged with well-fitting bra and pad. Treatment: Patient seen with her supportive spouse. Reviewed with patient the importance of initiating activityevery day for up to 30 minutes. Discussed with patient she can break the activity up in to 2 x 15 minutes sessions. She is trying to incorporate this into her routine as she has significant fatigue today. Reviewed with patient she should continue to wear sleeve and glove daily as her bio impedance measure is elevated slightly. Suspect this is acute edema from radiation. She may have a component of lymphedema as she did have lymphedema prior to her AL ND. Positioned patient in supine and briefly reviewed stretches into ???Y. I, and external rotation. She has excellent range of motion today and I noted no nerve pain with shoulder or chest wall stretches. She will continue with stretches daily. Contact monitoring: PPE used during therapy: Therapist was wearing the following PPE throughout entire session: surgicalmask and eye protection Patient was wearing a mask during therapy session: yes Family member/caregiver present was wearing a mask: yes Assessment Patient with excellent left upper extremity range of motion. She states she has a radial nerve issuebut I noted no shooting pain with chest wall and shoulder stretches today. She has no weakness in her wrist extensors or digit extensors on left. She has very mild left upper extremity edema and will continue with her sleeve and glove. Plan to follow-up at the end of radiation. Functional Goals and Timeframes: Goal #1: Patient will be independent with this effective lymphedema management plan. Goal #1 Date: 02/05/22 Goal #1 Status: Progressing Goal #2: Patient will demonstrate full and symmetric shoulder range of motion to complete activitiesof daily living pain free and in preparation for radiation Goal #2 Date: 02/05/22 Goal #2 Status: Met Goal #3: Patient to demonstrate decreased fullness in left axilla and breast via a well-fitting bra and pad, possibly massage Goal #3 Date: 03/19/22 Goal #3 Status: Progressing Plan TREATMENT PLAN Number of Visits: up to 6 visits Plan: Continue with current plan Plan Comments: Follow-up on left breast edema in arm edema after bra fitting Treatment interventions may include: Therapeutic exercise, Therapeutic functional activity Daytime Compression Program Additional Details: arm sleeve and glove as needed, well fitting bra with pad Nighttime Compression Program: None OT: Time Spent with Patient Therapeutic Interventions Therapeutic Activity (min): 25 min Therapeutic Exercise (min): 15 min Time Tracking Total Timed Units (min): 40 min Total Treatment Time (min): 40 min Jeaneth Llamas O.T., CLT-LANA documented in this encounter Plan of Treatment Not on filedocumented as of this encounter Visit Diagnoses Diagnosis Lymphedema Post Mastectomy documented in this encounter
--- OUTSIDE RECORDS SUMMARY | 2022-04-03 11:26 | XMS_ITS | Encounter Summary ---
:1970 Author Organization [facility] Address [address] [place] [address] Care Team Providers Name Role Phone Unavailable Primary Care Provider Unavailable Reason for Visit Radiation Therapy (Routine) - Closed Specialty Diagnoses / Procedures Referred By Contact Refer red To Contact Diagnoses Malignant Neoplasm Of Breast Upper Outer Quadrant Female Left (HCC) Fritz Smith M.D. [facility] Procedures Prior Auth Rad Tx [place] IMRT SIMPLE [address] [place], [place] [phone] Referral ID Status Reason Start Date Expiration Date Visits Requ ested Visits Authorized [id number] Closed 10/25/2021 10/25/2022 25 25 Encounter Details Date Type Department Care Team Description 01/17/2022 Hospital Encounter Department of Radiation Jared Smith, [place]cology [place] [address] [facility] [address] [place] [phone] Social History Tobacco Use Types Packs/Day Years [...] More than 4 times per year 10/31/2021 advent services? Do you belong to any clubs or No 10/31/2021 organizations such as episcopal groups, unions, fraWEISSENHAUS or athletic groups, or school groups? How [...]
--- OUTSIDE RECORDS SUMMARY | 2022-04-03 11:26 | XMS_ITS | Encounter Summary ---
:1970 Author Organization [facility] Address [address] [place] [address] Care Team Providers Name Role Phone Unavailable Primary Care Provider Unavailable Encounter Details Date Type Department Care Team Description 01/09/2022 Clinical Communication Department of Fritz Smith Radiation Oncology [place] [facility] [address] [facility] [address] [place] [phone] [phone] Social History Tobacco Use Types Packs/Day Years [...] or relatives? How often do you attend jehovah's witness or More than 4 times per year 10/31/2021 uatsdin services? Do you belong to any clubs or No 10/31/2021 organizations such as jehovah's witness groups, unions, fraternal or athletic groups, or [...] this encounter Miscellaneous Notes Telephone Encounter - Rebeka Thakkar RPatricia. - 01/09/2022 1:13 PM CDT Work restriction letter given to patient today. documented in this encounter Plan of Treatment Not on filedocumented as of this encounter Visit Diagnoses Not on filedocumented in this encounter
--- OUTSIDE RECORDS SUMMARY | 2022-04-03 11:26 | XMS_ITS | Encounter Summary ---
:[address] [facility] Address [address] [place] [address] Care Team Providers Name Role Phone Unavailable Primary Care Provider Unavailable Reason for Visit Radiation Therapy (Routine) - Closed Specialty Diagnoses / Procedures Referred By Contact Refer red To Contact Diagnoses Malignant Neoplasm Of Breast Upper Outer Quadrant Female Left (HCC) Fritz Smith M.D. [facility] Procedures Prior Auth Rad Tx CT IMRT SIMPLE [address] [place], [place] [phone] Referral ID Status Reason Start Date Expiration Date Visits Requ ested Visits Authorized [id number] Closed 10/25/2021 10/25/2022 25 25 Encounter Details Date Type Department Care Team Description 01/13/2022 Hospital Encounter Department of Radiation Jared Smith, [place]cology [place] [address] [facility] [address] [place] [phone] Social History Tobacco Use Types Packs/Day Years [...] or relatives? How often do you attend adventism or More than 4 times per year 10/31/2021 quaker services? Do you belong to any clubs or No 10/31/2021 organizations such as adventism groups, unions, fraUCampus or athletic groups, or school groups? How [...]
--- OUTSIDE RECORDS SUMMARY | 2022-04-03 11:26 | XMS_ITS | Encounter Summary ---
:1970 Author Organization [facility] Address [address] [place] [address] Care Team Providers Name Role Phone Unavailable Primary Care Provider Unavailable Reason for Visit Radiation Therapy (Routine) - Closed Specialty Diagnoses / Procedures Referred By Contact Refer red To Contact Diagnoses Malignant Neoplasm Of Breast Upper Outer Quadrant Female Left (HCC) Fritz Smith M.D. [facility] Procedures Prior Auth Rad Tx [place] IMRT SIMPLE [address] [place], [place] [phone] Referral ID Status Reason Start Date Expiration Date Visits Requ ested Visits Authorized [id number] Closed 10/25/2021 10/25/2022 25 25 Encounter Details Date Type Department Care Team Description 01/02/2022 Hospital Encounter Department of Radiation Jared Smith, [place] [address] [facility] [address] [place] [phone] Social History Tobacco Use Types Packs/Day Years [...] or relatives? How often do you attend worship or More than 4 times per year 10/31/2021 confucianism services? Do you belong to any clubs or No 10/31/2021 organizations such as worship groups, unions, fraRiGHT BRAiN MEDiA or athletic groups, or school groups? How [...]
--- OUTSIDE RECORDS SUMMARY | 2022-04-03 11:26 | XMS_ITS | Encounter Summary ---
:1970 Author Organization [facility] Address [address] [place] [address] Care Team Providers Name Role Phone Unavailable Primary Care Provider Unavailable Reason for Visit Radiation Therapy (Routine) - Closed Specialty Diagnoses / Procedures Referred By Contact Refer red To Contact Diagnoses Malignant Neoplasm Of Breast Upper Outer Quadrant Female Left (HCC) Fritz Smith M.D. [facility] Procedures Prior Auth Rad Tx VT IMRT SIMPLE [address] [place], [place] [phone] Referral ID Status Reason Start Date Expiration Date Visits Requ ested Visits Authorized [id number] Closed 10/25/2021 10/25/2022 25 25 Encounter Details Date Type Department Care Team Description 01/15/2022 Hospital Encounter Department of Radiation Jared Smith, Oncology in [place] [address] [facility] [address] [place] [phone] Social History Tobacco Use Types Packs/Day Years [...] or relatives? How often do you attend mandaen or More than 4 times per year 10/31/2021 confucianist services? Do you belong to any clubs or No 10/31/2021 organizations such as mandaen groups, unions, fraUskape or athletic groups, or school groups? How [...]
--- OUTSIDE RECORDS SUMMARY | 2022-04-03 11:26 | XMS_ITS | Encounter Summary ---
:1970 Author Organization [facility] Address [address] [place] [address] Care Team Providers Name Role Phone Unavailable Primary Care Provider Unavailable Reason for Visit Radiation Therapy (Routine) - Closed Specialty Diagnoses / Procedures Referred By Contact Refer red To Contact Diagnoses Malignant Neoplasm Of Breast Upper Outer Quadrant Female Left (HCC) Fritz Smith M.D. [facility] Procedures Prior Auth Rad Tx ID IMRT SIMPLE [address] [place], [place] [phone] Referral ID Status Reason Start Date Expiration Date Visits Requ ested Visits Authorized [id number] Closed 10/25/2021 10/25/2022 25 25 Encounter Details Date Type Department Care Team Description 01/21/2022 Hospital Encounter Department of Radiation Jared Smith, [place]cology [place] [address] [facility] [address] [place] [phone] Social History Tobacco Use Types Packs/Day Years [...] or relatives? How often do you attend mosque or More than 4 times per year 10/31/2021 caodaism services? Do you belong to any clubs or No 10/31/2021 organizations such as mosque groups, unions, fraLiquipel or athletic groups, or school groups? How [...]
--- OUTSIDE RECORDS SUMMARY | 2022-04-03 11:26 | XMS_ITS | Encounter Summary ---
:[address] [facility] Address [address] [place] [address] Care Team Providers Name Role Phone Unavailable Primary Care Provider Unavailable Reason for Visit Radiation Therapy (Routine) - Closed Specialty Diagnoses / Procedures Referred By Contact Refer red To Contact Diagnoses Malignant Neoplasm Of Breast Upper Outer Quadrant Female Left (HCC) Fritz Smith M.D. [facility] Procedures Prior Auth Rad Tx [place] IMRT SIMPLE [address] [place], [place] [phone] Referral ID Status Reason Start Date Expiration Date Visits Requ ested Visits Authorized [id number] Closed 10/25/2021 10/25/2022 25 25 Encounter Details Date Type Department Care Team Description 01/14/2022 Hospital Encounter Department of Radiation Jared Smith, [place]cology [place] [address] [facility] [address] [place] [phone] Social History Tobacco Use Types Packs/Day Years [...] More than 4 times per year 10/31/2021 pentecostal services? Do you belong to any clubs or No 10/31/2021 organizations such as christianity groups, unions, fraFeeding Forward or athletic groups, or school groups? How [...] place to sleep or slept in a usp (including now)? Education Answer Date Recorded What [...]
--- OUTSIDE RECORDS SUMMARY | 2022-04-03 11:26 | XMS_ITS | Encounter Summary ---
:1970 Author Organization [facility] Address [address] [place] [address] Care Team Providers Name Role Phone Unavailable Primary Care Provider Unavailable Reason for Referral Radiation Therapy (Routine) - Authorized Specialty Diagnoses / Procedures Referred By Contact Refer red To Contact Diagnoses Malignant Neoplasm Of Breast Upper Outer Quadrant Female Left (HCC) Fritz Smith M.D. [facility] Procedures Management Visit [address] [place] [address] Referral ID Status Reason Start Date Expiration Date Visits V isits Requested Authorized [id number] Authorized 12/19/2021 12/19/2022 10 10 Reason for Visit Radiation Therapy (Routine) - Authorized Specialty Diagnoses / Procedures Referred By Contact Refer red To Contact Diagnoses Malignant Neoplasm Of Breast Upper Outer Quadrant Female Left (HCC) Fritz Smith M.D. [facility] Procedures Management Visit [address] [place], [place] [address] Referral ID Status Reason Start Date Expiration Date Visits V isits Requested Authorized [id number] Authorized 12/19/2021 12/19/2022 10 10 Encounter Details Date Type Department Care Team Description 01/08/2022 Hospital Encounter Department of Fritz Smith (Primary Dx); Radiation Oncology L, M.D. Malignant Neoplasm Of Breast Upper Outer Quadrant Female Left (HCC) in [place], [facility] [address] [place], [place] [address] [facility] [address] [place], [place] [phone] (Work) [phone] Social History Tobacco Use Types Packs/Day Years [...] or relatives? How often do you attend alevism or More than 4 times per year 10/31/2021 restoration services? Do you belong to any clubs or No 10/31/2021 organizations such as alevism groups, unions, fraternal or athletic groups, or [...] Pressure - - Pulse - - Temperature 36.5 ??C (97.7 ??F) 01/08/2022 3:43 PM CDT Respiratory Rate - - Oxygen Saturation - - Inhaled Oxygen Concentration - - Weight 86.6 kg (190 lb 14.7 oz) 01/08/2022 3:43 PM CDT Height - - Body Mass Index 31.43 11/22/2021 9:49 AM CDT documented in this encounter Medications at Time of Discharge Medication Sig Dispensed Refills Start Date End Date baclofen (LIORESAL) 10 mg TAKE 1-2 TABLETS 0 05/0 10/2021 tablet (10-20 MG) BY MOUTH ONCE [...] encounter Progress Notes Fritz Smith M.D. - 01/08/2022 3:45 PM CDT SUBJECTIVE REASON FOR VISIT Evaluation for side effects while receiving radiation treatment for 1. Malignant Neoplasm Of Breast Upper Outer Quadrant Female Left (HCC) SUPERVISED BY: Dr. Smith HISTORY OF PRESENT ILLNESS Mrs. Joceline Uribe is a 51 y.o. 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 She is now undergoing radiation therapy. Treatment Course: 1xBreastL Plan ID Fractions Dose / Fraction (cGy) Dose Treated (cGy) Dose Planned (cGy) First Treatment Last Treatment Elapsed Days [id number] 12/30/2021 01/07/2022 8 Course Summary 12/30/2021 01/07/2022 8 The patient was seen and examined today [...] longer experiencing depression or suicidal ideation.She denies fevers or chills. She rates her nerve pain since surgery at a 2 out of 10 today. She willtake Tylenol on occasion for the pain but has not taken any recently. She has an upset stomach todayrelated to dietary intake. She denies vomiting. She is applying moisturizing lotion to the treatmentfield area at least twice a day. PATIENT REPORTED SYMPTOM SCREEN FATIGUE (Scale: 0 = no fatigue; 10 = worst fatigue you can imagine): 6 PAIN (Scale: 0 = no pain; 10 = worst pain you can imagine): 2 OVERALL QUALITY OF LIFE (Scale: 0 = as bad as can be; 10 = as good as can be): 8 OBJECTIVE Temp 36.5 ??C (Temporal) Wt 86.6 kg BMI 31.43 kg/m?? PHYSICAL EXAM General: Alert and oriented in no apparent distress. Skin: no skin changes to the left breast. ASSESSMENT / PLAN #1 Stage IIB (pT2, pN2a, cM0, G3, ER+, MI+, HER2-) invasive ductal carcinoma of the left [...] as planned. Signed by: Malena Estevez R.N. 01/08/2022 3:50 PM CDT I saw and evaluated the patient and participated in the light portions of the service. I reviewed the documentation of Malena Estevez R.N. and agree with the findings and plan. The patient appears well onexam. She is here today with her . She had suicidal ideation depression with gabapentin. Thisis resolved with discontinuation of the medication. She does have some shooting pains over the last 2 days in her left supraclavicular region. 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 I am concerned that this may persist even get worse during her radiotherapy. I am referring her to palliative Care in [place] for their input about potential analgesics. She has [id number] exercises from occupational therapy in [place]. After treatment is completed we will reconnect her with the occupational and physical therapy staff at [facility]. She is also requesting a letter to allow her to reduce her work hours. She will work with our nursingstaff in this regard. The patient and her spouse verbalized satisfaction with this plan. She will continue with treatment as planned. Signed by: Fritz Smith M.D. 01/08/2022 9:35 PM CDT [facility] [address] [place] [address] documented in this encounter Plan of Treatment Scheduled Orders Name Type Priority Associated Diagnoses Order S chedule Management Visit Radiation Oncology Routine Malignant Neoplasm Once for 1 Of Breast Upper Occurrences starting Outer Quadrant 01/08/2022 un til Female Left (HCC) 01/08/2022 documented as of this encounter Visit Diagnoses Diagnosis Pain Neuropathic - Primary Malignant Neoplasm Of Breast Upper Outer Quadrant Female Left (HCC) documented in this encounter
--- OUTSIDE RECORDS SUMMARY | 2022-04-03 11:26 | XMS_ITS | Encounter Summary ---
:1970 Author Organization [facility] Address [address] [place] [address] Care Team Providers Name Role Phone Unavailable Primary Care Provider Unavailable Reason for Referral Radiation Therapy (Routine) - Authorized Specialty Diagnoses / Procedures Referred By Contact Refer red To Contact Diagnoses Malignant Neoplasm Of Breast Upper Outer Quadrant Female Left (HCC) Fritz Smith M.D. [facility] Procedures Management Visit [address] [place] [address] Referral ID Status Reason Start Date Expiration Date Visits V isits Requested Authorized [id number] Authorized 12/19/2021 12/19/2022 10 10 Reason for Visit Radiation Therapy (Routine) - Authorized Specialty Diagnoses / Procedures Referred By Contact Refer red To Contact Diagnoses Malignant Neoplasm Of Breast Upper Outer Quadrant Female Left (HCC) Fritz Smith M.D. [facility] Procedures Management Visit [address] [place] [phone] Referral ID Status Reason Start Date Expiration Date Visits V isits Requested Authorized [id number] Authorized 12/19/2021 12/19/2022 10 10 Encounter Details Date Type Department Care Team Description 01/15/2022 Hospital Encounter Department of Fritz Smith Neoplasm Radiation Oncology [place] [facility], [address] [facility] [place] Female Left (HCC) [address] [facility] [address] [place], [place] [phone] [phone] (Work) [phone] Social History Tobacco Use Types Packs/Day Years [...] or relatives? How often do you attend bahai or More than 4 times per year 10/31/2021 adventist services? Do you belong to any clubs or No 10/31/2021 organizations such as bahai groups, unions, fraternal or athletic groups, or [...] Pressure - - Pulse - - Temperature 36.7 ??C (98 ??F) 01/15/2022 3:33 PM CDT Respiratory Rate - - Oxygen Saturation - - Inhaled Oxygen Concentration - - Weight 82.8 kg (182 lb 8.7 oz) 01/15/2022 3:33 PM CDT Height - - Body Mass Index 30.05 11/22/2021 9:49 AM CDT documented in this [...] encounter Progress Notes Fritz Smith M.D. - 01/15/2022 3:45 PM CDT SUBJECTIVE REASON FOR VISIT Evaluation for side effects while receiving radiation treatment for 1. Malignant Neoplasm Of Breast Upper Outer Quadrant Female Left (HCC) SUPERVISED BY: Dr. Smith HISTORY OF PRESENT ILLNESS Mrs. Joceline Uribe is a 51 y.o. 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 She is now undergoing radiation therapy. Plan ID Fractions Dose / Fraction (cGy) Dose Treated (cGy) Dose Planned (cGy) First Treatment Last Treatment Elapsed Days [id number] 220 [id number] 5500 12/30/2021 01/15/2022 16 Course [...] her nerve pain since surgery at a 3 out of 10 today. She localizes her pain to the left axilla. She has just started to experience 1 out of 10 esophageal/sore throat pain. She is taking 1 Pepcid in the morning but will now go to twice a day dosing. She denies vomiting. She is applying moisturizing lotion to the treatment field area at least twice a day. PATIENT REPORTED SYMPTOM SCREEN FATIGUE (Scale: 0 = no fatigue; 10 = worst fatigue you can imagine): 3 PAIN (Scale: 0 = no pain; 10 = worst pain you can imagine): 3 OVERALL QUALITY OF LIFE (Scale: 0 = as bad as can be; 10 = as good as can be): 8 OBJECTIVE Temp 36.7 ??C (Temporal) Wt 82.8 kg BMI 30.05 kg/m?? PHYSICAL EXAM General: Alert and oriented in no apparent distress. Skin: no skin changes to the left breast. No areas of desquamation or dryness. ASSESSMENT / PLAN #1 Stage IIB (pT2, pN2a, cM0, G3, ER+, IL+, HER2-) invasive ductal carcinoma of the left [...] scheduled for February 25, 2022 on our [facility]. Patient will go to twice a day Pepcid dosing. Palliative Medicine order was placed last week for further pain management assistance. Patient will ask our desk staff to work on scheduling Palliative appointment as virtual visit. Patient wants to limit trips down to [place] due to fatigue/pain when in the car. We will see patient in weekly management visits and continues to reassess. She will contact us with any questions or concerns. We will continue with radiation treatment as planned. Signed by: Malena Estevez R.N. 01/15/2022 2:59 PM CDT I saw and evaluated the patient and participated in the light portions of the service. I reviewed the documentation of Malena Estevez R.N. and agree with the findings and plan. The patient appears well onexam. She is here today with her [place]. She discontinued work because of fatigue. She is otherwise tolerating treatment well. She will continue with treatment as planned. Signed by: Fritz Smith M.D. 01/15/2022 4:17 PM CDT [facility] [address] [place] [address] documented in this encounter Plan of Treatment Scheduled Orders Name Type Priority Associated Diagnoses Order S chedule Management Visit Radiation Oncology Routine Malignant Neoplasm Once for 1 Of Breast Upper Occurrences starting Outer Quadrant 01/15/2022 un til Female Left (HCC) 01/15/2022 documented as of this encounter Visit Diagnoses Diagnosis Malignant Neoplasm Of Breast Upper Outer Quadrant Female Left (HCC) documented in this encounter
--- OUTSIDE RECORDS SUMMARY | 2022-04-03 11:27 | XMS_ITS | Encounter Summary ---
:1970 Author Organization [facility] Address [address] [place] [address] Care Team Providers Name Role Phone Unavailable Primary Care Provider Unavailable Encounter Details Date Type Department Care Team Description 11/14/2021 Clinical Communication Division of Breast and Broussard, Samantha, Melanoma Surgical M.B.B.S., M.S. Oncology in [place], [facility] [address] [place], [place] [address] [facility] [address] [place], [place] [phone] (Work) [phone] Social History Tobacco Use Types Packs/Day Years [...] or relatives? How often do you attend buddhist or More than 4 times per year 10/31/2021 confucianism services? Do you belong to any clubs or No 10/31/2021 organizations such as buddhist groups, unions, fraternal or athletic groups, or [...] this encounter Miscellaneous Notes Telephone Encounter - Samantha Broussard M.B.B.S., M.S. - 11/14/2021 6:14 PM CDT FINAL PATHOLOGY CALL Discussed with Mrs. Uribe the results of her final pathology. This showed that 8 lymph nodes out of20 were positive for metastatic cancer. 6 had macrometastases and 2 had micrometastases. Plan will be to f/up with radiation oncology for axillary radiation, per e tumor board discussion. The patient is otherwise doing well and has no issues/concerns. She asked me to make sure that her PM&R appointments will be scheduled; it appears those have been ordered but not scheduled yet, so I will let 's team know to f/up on this. FINAL DIAGNOSIS A. ??Lymph nodes, left axillary contents, dissection: Multiple (8 of 20) lymph nodes are positive for metastatic mammary ductal carcinoma, including 6 lymph nodes with macrometastasis and 2 lymph nodes with micrometastasis. The largest metastasis measures 6 mm. Extranodal extension is present, 2 mm. documented in this encounter Plan of Treatment Not on filedocumented as of this encounter Visit Diagnoses Not on filedocumented in this encounter
--- OUTSIDE RECORDS SUMMARY | 2022-04-03 11:27 | XMS_ITS | Encounter Summary ---
:1970 Author Organization [facility] Address [address] [place] [address] Care Team Providers Name Role Phone Unavailable Primary Care Provider Unavailable Encounter Details Date Type Department Care Team Description 11/25/2021 Ancillary Procedure Department of Plastic and Reconstructive [...] More than 4 times per year 10/31/2021 congregation services? Do you belong to any clubs [...] Diagnosis Comme nts PLASTIC AND RECON Routine 11/25/2021 12:00 AM Res ults for this SURGERY IMAGE EXAM CDT procedure are in the results section. documented in this encounter Results Arms Lymphaticovenous Bypass-Plastic And Recon Surgery Image Exam (11/25/2021 12:00 AM CDT) Specimen (Source) Anatomical Location Collection Method / Collectio n Time Received Time / Laterality Volume Narrative IIMS - 11/25/2021 4:59 PM CDT This order has been created [...]
--- OUTSIDE RECORDS SUMMARY | 2022-04-03 11:27 | XMS_ITS | Encounter Summary ---
:1970 Author Organization [facility] Address [address] [place] [address] Care Team Providers Name Role Phone Unavailable Primary Care Provider Unavailable Encounter Details Date Type Department Care Team Description 11/22/2021 Clinical Communication Department of Macy Esquivel, Oncology in [place], [place] [address] [facility] [address] [place] [address] [phone] Social History Tobacco Use Types Packs/Day Years [...] More than 4 times per year 10/31/2021 zoroastrianism services? Do you belong to any clubs or No 10/31/2021 organizations such as restoration groups, unions, fraternal or athletic groups, or [...]
--- OUTSIDE RECORDS SUMMARY | 2022-04-03 11:27 | XMS_ITS | Encounter Summary ---
:1970 Author Organization [facility] Address [address] [place] [address] Care Team Providers Name Role Phone Unavailable Primary Care Provider Unavailable Reason for Referral Outpatient (Routine) - Closed Specialty Diagnoses / Procedures Referred By Contact Refer red To Contact Diagnoses Malignant Neoplasm Of Breast Upper Outer Quadrant Female Left (HCC) Lesion Kidney Elen Augustin APRN, [facility] Procedures Kidney Right C.N.P., D.N.P. [address] [place], [place] [address] Referral ID Status Reason Start Date Expiration Date Visits Requ ested Visits Authorized [id number] Closed 11/08/2021 11/08/2022 1 1 Reason for Visit Outpatient (Routine) - Closed Specialty Diagnoses / Procedures Referred By Contact Refer red To Contact Diagnoses Malignant Neoplasm Of Breast Upper Outer Quadrant Female Left (HCC) Lesion Kidney Elen Augustin APRN, [facility] Procedures Kidney Right C.N.P., D.N.P. [address] [place], [place] [address] Referral ID Status Reason Start Date Expiration Date Visits Requ ested Visits Authorized [id number] Closed 11/08/2021 11/08/2022 1 1 Encounter Details Date Type Department Care Team Description 11/20/2021 Hospital Encounter Department of Elen Augustin Malign ant Neoplasm Of Breast Upper Outer Quadrant Female Left (HCC); Radiology, Aubreya L, UNIFORM ATTENDANT, Lesion Kidty [facility], in C.N.P., D.N.P. [place], [place] [address] [facility] [address] [place] [phone] Social History Tobacco Use Types Packs/Day Years [...] More than 4 times per year 10/31/2021 muslim services? Do you belong to any clubs [...] by mouth 0 0 05/22/2021 tablet daily. famotidine (PEPCID) 20 mg Take 20 mg by mouth 0 0 08/30/2021 tablet daily. levothyroxine (SYNTHROID, Take 75 mcg by 0 2020 LEVOTHROID) 75 mcg tablet mouth every morning before breakfast. tamoxifen (NOLVADEX) 20 Take 20 mg by mouth 0 mg tablet daily. triamcinolone (KENALOG) as needed. 0 09/06/2021 0.1 % cream acetaminophen (TYLENOL) Take 2 tablets 100 tablet 0 11/13/19 22 12/17/2021 500 mg tablet (1,000 mg total) by mouth every 6 (six) hours for 3 days. Take 2 tablets up to four times daily for pain oxyCODONE (ROXICODONE) 5 Take 1 tablet (5 mg 15 tablet 0 12/17/2021 mg immediate release total) by mouth tabletIndications: Acute every 4 (four) Pain Exception hours as needed for pain Indication: Acute Pain Exception. documented as of this encounter Plan of Treatment Not on filedocumented as of this encounter Procedures Procedure Name Priority Date/Time Associated Comments Diagnosis US KIDNEY RIGHT RAD - Routine 11/20/2021 11:53 Malignant Neoplasm R esults for this (most inpatients AM CDT Of Breast Upper procedur e are in and all Outer Quadrant the results outpatients) Female Left (HCC ) section. Lesion Kidney documented in this encounter Results US Kidney Right (11/20/2021 11:53 AM CDT) Anatomical Region Laterality Modality Abdomen, Renal, Ultrasound RST LOS, Ultrasound ARZ LOS, Righ t Ultrasound Ultrasound FLA LOS Specimen (Source) Anatomical Collection Method Collection Time Re ceived Time Location / / Volume Laterality 11/20/2021 11:54 AM CDT Impressions 11/20/2021 11:58 AM CDT The lesion of concern within the right kidney noted on comparison breast MRI corresponds with a benign 2.3 cm cyst. No solid righ t renal masses are identified. Narrative 11/20/2021 11:58 AM CDT EXAM: US KIDNEY RIGHT COMPARISON: Breast MRI 11/07/2021 FINDINGS: Right kidney: 9.7 cm Cortical thickness: Normal. Parenchymal echogenicity: Normal. Collecting system: No hydronephrosis. Masses: None detected. ??The lesion of c oncern noted on the comparison breast MRI corresponds with an exophytic cyst arising from the superior pole of the right kidney measuring 2.1 x 1.7 x 2.3 cm. No solid masses are identified. Procedure Note Willam Gusman M.D. - 11/20/2021Forma tting of this note might be different from the original. EXAM: US KIDNEY RIGHT COMPARISON: Breast MRI 11/07/2021 FINDINGS: Right kidney: 9.7 cm Cortical thickness: Normal. Parenchymal echogenicity: Normal. Collecting system: No hydronephrosis. Masses: None detected. The lesion of con cern noted on the comparison breast MRI corresponds with an exophytic cyst arising from the superior pole of the right kidney measuring 2.1 x 1.7 x 2.3 cm. No solid masses are identified. IMPRESSION: The lesion of concern within the right k idney noted on comparison breast MRI corresponds with a benign 2.3 cm cyst. No solid righ t renal masses are identified. Elen Augustin APRN, C.N.P., D.N.P. IMG US PROCEDURES documented in this encounter Visit Diagnoses Diagnosis Malignant Neoplasm Of Breast Upper Outer Quadrant Female Left (HCC) Lesion Kidney documented in this encounter
--- OUTSIDE RECORDS SUMMARY | 2022-04-03 11:27 | XMS_ITS | Encounter Summary ---
:1970 Author Organization [facility] Address [address] [place] [address] Care Team Providers Name Role Phone Unavailable Primary Care Provider Unavailable Reason for Referral Outpatient (Routine) - Authorized Specialty Diagnoses / Procedures Referred By Contact Refer red To Contact Radiation Oncology Fritz Smith M .D. [facility] Region [address] [place] [address] Referral ID Status Reason Start Date Expiration Date Visits V isits Requested Authorized [id number] Authorized 12/19/2021 12/19/2022 10 10 Specialty Diagnoses / Procedures Referred By Contact Refer red To Contact Fritz Smith M .D. [facility] Region [address] [place] [address] Referral ID Status Reason Start Date Expiration Date Visits Requ ested Visits Authorized Radiation Therapy (Routine) - Authorized Specialty Diagnoses / Procedures Referred By Contact Refer red To Contact Diagnoses Malignant Neoplasm Of Breast Upper Outer Quadrant Female Left (HCC) Fritz Smith M.D. [facility] Region Procedures Management Visit [address] [place] [address] Referral ID Status Reason Start Date Expiration Date Visits V isits Requested Authorized [id number] Authorized 12/19/2021 12/19/2022 10 10 Radiation Therapy (Routine) - Closed Specialty Diagnoses / Procedures Referred By Contact Refer red To Contact Diagnoses Malignant Neoplasm Of Breast Upper Outer Quadrant Female Left (HCC) Fritz Smith M.D. [facility] Procedures Prior Auth Rad Tx AK IMRT SIMPLE [address] [place], [place] [address] Referral ID Status Reason Start Date Expiration Date Visits Requ ested Visits Authorized [id number] Closed 10/25/2021 10/25/2022 25 25 Radiation Therapy (Routine) - Closed Specialty Diagnoses / Procedures Referred By Contact Refer red To Contact Diagnoses Malignant Neoplasm Of Breast Upper Outer Quadrant Female Left (HCC) Fritz Smith M.D. [facility] Procedures Initial Rad Onc Treatment Planning CT Simulation [address] [place], [place] [address] Referral ID Status Reason Start Date Expiration Date Visits Requ ested Visits Authorized [id number] Closed 12/19/2021 12/19/2022 1 1 Outpatient (Routine) - Closed Specialty Diagnoses / Procedures Referred By Contact Refer red To Contact Radiation Oncology Fritz Smith M .D. [facility] Region [address] [place] [address] Referral ID Status Reason Start Date Expiration Date Visits Requ ested Visits Authorized [id number] Closed 12/19/2021 12/19/2022 1 1 Encounter Details Date Type Department Care Team Description 12/19/2021 Orders Only Department Fritz Beltran Of Radiation Oncology christine Shah M.D. Breast Upper Outer [facility] [address] Quadrant Female Left [address] [place], [place] (HCC) (Primary Dx) [place] [phone] Social History Tobacco Use Types Packs/Day Years [...] More than 4 times per year 10/31/2021 jain services? Do you belong to any clubs or No 10/31/2021 organizations such as mosque groups, unions, fraternal or athletic groups, or [...] Treatment Scheduled Orders Name Type Priority Associated Order Schedule Diagnoses Prior Auth Rad Tx Radiation Oncology Routine Malignant Neoplas m Ordered: 12/19/2021 Of Breast Upper Outer Quadrant Female Left (HCC) Management Visit Radiation Oncology Routine Malignant Neoplasm 10 Occurrences Of Breast Upper starting 08/2021 Outer Quadrant until 023 Female Left (HCC) Scheduled Referrals Name Type Priority Associated Order Schedule Diagnoses Radiation Oncology Outpatient Referral Routine Ex pected: 12/20/2021 office visit (Approximate), (clinic) Expires: 2022 Radiation Oncology Outpatient Referral Routine Malignant Neopl asm Expected: 12/19/2021 - Nurse education Of Breast Upper (Approx imate), visit (clinic) Outer Quadrant Expires: Female Left (HCC) Radiation Oncology Outpatient Referral Routine 10 Occurrences nurse visit starting 2021 (clinic) until 5 documented as of this encounter Results Initial Rad Onc Treatment Planning CT Simulation (12/20/2021 10:38 AM CDT) Specimen (Source) Anatomical Location Collection Method / Collectio n Time Received Time / Laterality Volume Narrative ROSA LO - 12/20/2021 10:38 AM CDT Prudence Bass, RTT ? 12/20/2021 10:39 AM Initial Rad Onc Treatment Planning CT Si mulation Date/Time: 12/20/2021 10:38 AM Performed by: Fritz Smith M.D. Authorized by: Fritz Smith M.D. Fritz Smith M.D. RADIATION ONCOLOGY ORDERABLE S Performing Organization Address City/State/ZIP Code Phon e Number [facility] na documented in this encounter Visit Diagnoses Diagnosis Malignant Neoplasm Of Breast Upper Outer Quadrant Female Left (HCC) - Primary Malignant Neoplasm Of Breast Upper Outer Quadrant Female Left (HCC) documented in this encounter
--- OUTSIDE RECORDS SUMMARY | 2022-04-03 11:27 | XMS_ITS | Encounter Summary ---
:1970 Author Organization [facility] Address [address] [place] [address] Care Team Providers Name Role Phone Unavailable Primary Care Provider Unavailable Reason for Referral Outpatient (Routine) - Closed Specialty Diagnoses / Procedures Referred By Contact Refer red To Contact Radiation Oncology Diagnoses Malignant Neoplasm Of Breast Upper Outer Quadrant Female Left (HCC) Jennifer Berger D.O. [facility] [address] [place] [phone] Referral ID Status Reason Start Date Expiration Date Visits Requ ested Visits Authorized [id number] Closed 10/25/2021 10/25/2022 1 1 Scheduling Instructions Please schedule 7-10 days postoperativel y. OR 11/12/2021. Thank you! Reason for Visit Outpatient (Routine) - Closed Specialty Diagnoses / Procedures Referred By Contact Refer red To Contact Radiation Oncology Diagnoses Malignant Neoplasm Of Breast Upper Outer Quadrant Female Left (HCC) eJnnifer Berger D.O. [address] [address] Referral ID Status Reason Start Date Expiration Date Visits Requ ested Visits Authorized [id number] Closed 10/25/2021 10/25/2022 1 1 Encounter Details Date Type Department Care Team Description 12/19/2021 Hospital Encounter Department of Mutter, Nader Malign ant Neoplasm Radiation Oncology Xavi Walker. Of Breast Upper in [place] M, [address] Outer Quadrant [facility] [place] Female Left (HCC) [address] [facility] [address] (Primary Dx) [place], [place] [phone] (Work) [phone] Social History Tobacco Use Types Packs/Day Years [...] 10/31/2021 organizations such as baptism groups, unions, fraternal or athletic groups, or [...] place to sleep or slept in a care home (including now)? Education Answer Date Recorded [...] Pressure - - Pulse - - Temperature - - Respiratory Rate - - Oxygen Saturation - - Inhaled Oxygen Concentration - - Weight 84 kg (185 lb 3 oz) 12/19/2021 8:57 AM CDT Height - - Body Mass Index 30.48 11/22/2021 9:49 AM CDT documented in this [...] documented as of this encounter Progress Notes Mingo Gallardo APRN, C.N.P., D.N.P. - 12/19/2021 9:00 AM CDT SUBJECTIVE CHIEF COMPLAINT/REASON FOR VISIT Mrs. Joceline Uribe is a 51 y.o. female from [place], [place], presenting for follow-up regarding the followin. Malignant Neoplasm Of Breast Upper Outer Quadrant Female Left (HCC) Oncology History Malignant Neoplasm Of Breast Upper [...] CORE BIOPSY: 1. Invasive ductal carcinoma a. Melrose grade: II of III; Melrose score: 7 of 9 b. Angio-lymphatic invasion: [...] with the [employer] 20 gene breast and MEMBER SERVICE REPRESENTATIVE cancer panel. No genetic mutations. 04/25/2021 Surgery and Procedures Left breast lumpectomy and left axillary sentinel lymph node biopsy was performed by Dr. Katherine Hawthorne. A) LEFT BREAST, LUMPECTOMY: 1. Invasive ductal carcinoma a. Lexy grade 3; see comment b. 22 mm in greatest dimension 2. Breast Ancillary Testing: Performed on prior case [id number] a. Hormone Receptors: Estrogen receptor: Positive (96%, [...] of Lymph Nodes Examined: 6 Number of [place] Nodes Examined: 6 PATHOLOGIC STAGE CLASSIFICATION (pTNM, [...] months. 11/12/2021 Surgery and Procedures Left axillary LN dissection-- Multiple (8 of 20) lymph nodes are positive for metastatic mammary ductal carcinoma, including 6 lymph nodes with macrometastasis and 2 lymph nodes with micrometastasis. The largest metastasis measures 6 mm. Extranodal extension is present, 2 mm. 12/17/2021 - Radiation Therapy Radiation Therapy Treatment Details (Noted on 10/23/2021) Site: Left Breast Technique: 3D OIL DISTRIBUTOR Goal: Curative Planned Treatment Start Date: 11/04/2021 INTERVAL HISTORY Ms. Uribe returns today after her axillary lymph node dissection. She feels alright overall. Her left arm range of motion is significantly diminished, barely able to life her arms over her shoulder. She doesn't feel a significant degree of swelling and notes that her surgical incision is completely healed. Lymphadenectomy was on 10/23, so she is 5.5 weeks out from that. She is hoping to hear more about radiation today. The following portions of the patient's history were reviewed and updated as appropriate: allergies,current medications, medical history, surgical history, and problem list. REVIEW OF SYSTEMS Genitourinary: Positive for difficulty urinating, urgency and frequent urination. Hematologic: Positive for bruises or bleeds easily. Musculoskeletal: Positive for pain or stiffness in the joints and back pain. Neurological: Positive for numbness or shooting pain in hands, arms, legs, or feet, loss of balance or tendency to fall easily and weakness in arms or legs. The following systems were negative: Constitutional, Skin, Eyes, ENT, Respiratory, Cardiovascular, Gastrointestinal, Psychiatric OBJECTIVE There were no vitals filed for this visit. ECO PHYSICAL EXAM Vitals reviewed. Constitutional Appearance: Normal appearance. Pulmonary Effort: Pulmonary effort is normal. Musculoskeletal Right shoulder: Normal. Left shoulder: No tenderness. Decreased range of motion. Normal strength. Cervical back: Normal range of motion. No rigidity. Neurological Mental Status: She is alert and oriented to person, place, and time. ASSESSMENT / PLAN 1. 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 After her surgery, she had a PET/CT which revealed FDG-avid left axillary nodes remaining. She completed adjuvant chemotherapy followed by elective axillary lymph nodedissection, in hopes of receiving reduced radiotherapy dosage to reduce risk of brachial plexopathy from comprehensive gisell irradiation. After chemotherapy (DDAC), she received left axillary node dissection (11/12/21) which revealed 8 of 20 positive nodes with extranodal extension present. She is here today to discuss radiation therapy. I discussed her case with Dr. Juan Manuel Krishna, supervising physician. He recommends adjuvant radiotherapy, left whole-breast, with comprehensive gisell irradiation. She was sent here from our health system colleagues for proton therapy, which has some potential benefit for her left-sided disease. I met with the patient in clinic today. We discussed the diagnosis, the indications for radiation, and the risks and benefits of radiation. We discussed that radiation is given adjuvantly 3-8 weeks after surgery, or often after any additional adjuvant chemotherapy if indicated. Radiation is generally r ecommended for most women after lumpectomy to reduce the risk of local recurrence. We also discussedcommon side effects of radiation therapy, both long-term and short-term. Typically short-term effects are limited to fatigue and skin irritation (dermatitis) similar to a sunburn; sometimes local inflam mation can be prolonged (for many months) in the treatment area. Long-term effects may include changes in skin pigmentation and breast tissue, decreased size of breast, lymphedema in the arm and breast, and muscle tightness. There is a risk of damage to nerves, both in and around the breast, which maycause changes in sensation in the affected area. There is also a rare risk of radiation causing a secondary cancer. After discussion, Ms. Uribe would like to proceed with radiation. See attestation by Dr. Krishna forfurther details and decision-making. He recommends returning to [facility] for x-ray radiotherapy. Plan: Return to clinic in [place] for x-ray adjuvant radiotherapy (whole breast with gisell irradiation). Drs. Smith and Yolanda notified, return visit ordered ADMINISTRATIVE/BILLING I personally spent 60 minutes in care of the patient today. Time includes both non face to face and face to face patient care. Associated attestation - Nader Krishna M.D. - 12/19/2021 12:57 PM CDT I saw and evaluated the patient and participated in the light portions of the service. I reviewed the documentation of Mingo Gallardo and agree with the findings and plan. Mrs. Uribe presents back for a follow-up visit having undergone a completion axillary lymph node dissection on November 12, 2021. Final pathology revealed 8 of 20 excise lymph nodes involved with metastatic carcinoma, largest node measuring 6 mm and there was extranodal extension. The patient's postoperative course has been unremarkable thus far outside of the expected slow recovery of range of motion and new lower arm pain. Of note,she does have a history of cervical stenosis with resulting left upper extremity arm weakness. On physical exam the axillary incision is healing well. No concerning lesions or masses appreciated in the axilla or left breast. Solid decreased left upper extremity range of motion still. No extremity edema. I recommend a course of whole breast and regional gisell radiation with a boost to the lumpectomy cavity to reduce the risk of recurrence. Although it would not be unreasonable to boost level 1 and 2 of the left axilla given the extent of residual disease after chemotherapy and external extension, I lean against it given her prior nerve injury and possibility that her left arm function could be impacted by the gisell radiation. All questions were answered to the best my abilities. She expressed desire to proceed with treatment closer to home at our [place] facility. She knows to contact me at anypoint should questions or concerns arise. 45 minutes spent the cares patient today. This includes both [id number] and non [id number] patient care. documented in this encounter Plan of Treatment Scheduled Referrals Name Type Priority Associated Order Schedule Diagnoses Radiation Oncology Outpatient Referral Routine Malignant Neopl asm Once for 1 - Breast consult Of Breast Upper Occurren barbara starting (clinic) Outer Quadrant 12/19/2021 un til Female Left (HCC) 12/19/2021 documented as of this encounter Visit Diagnoses Diagnosis Malignant Neoplasm Of Breast Upper Outer Quadrant Female Left (HCC) - Primary documented in this encounter
--- OUTSIDE RECORDS SUMMARY | 2022-04-03 11:27 | XMS_ITS | Encounter Summary ---
:1970 Author Organization [facility] Address [address] [place] [address] Care Team Providers Name Role Phone Unavailable Primary Care Provider Unavailable Reason for Referral Outpatient (Routine) - Closed Specialty Diagnoses / Procedures Referred By Contact Refer red To Contact Radiation Oncology Fritz Smith M .D. [address] [address] Referral ID Status Reason Start Date Expiration Date Visits Requ ested Visits Authorized [id number] Closed 12/19/2021 12/19/2022 1 1 Reason for Visit Outpatient (Routine) - Closed Specialty Diagnoses / Procedures Referred By Contact Carlene nicole To Contact Radiation Oncology Fritz Smith M .D. [address] [address] Referral ID Status Reason Start Date Expiration Date Visits Requ ested Visits Authorized [id number] Closed 12/19/2021 12/19/2022 1 1 Encounter Details Date Type Department Care Team Description 12/20/2021 Hospital Encounter Department of Fritz Smith Neoplasm Radiation Oncology Selma Shah Of Breast Upper in [place] [address] [address] [place], [place] Female Left (HCC) [address] [facility] [address] (Primary Dx) [place], [place] [phone] [phone] (Work) [phone] Social History Tobacco Use Types Packs/Day Years [...] or relatives? How often do you attend mu-ism or More than 4 times per year 10/31/2021 congregation services? Do you belong to any clubs or No 10/31/2021 organizations such as mu-ism groups, unions, fraSocialPandas or athletic groups, or school groups? How [...] Pulse 62 12/20/2021 8:55 AM CDT Temperature 36.3 ??C (97.3 ??F) 12/20/2021 8:55 AM CDT Respiratory Rate - - Oxygen Saturation - - Inhaled Oxygen Concentration - - Weight 83.8 kg (184 lb 11.9 oz) 12/20/2021 8:55 AM CDT Height - - Body Mass Index 30.41 11/22/2021 9:49 AM CDT documented in this [...] % cream documented as of this encounter Consult Notes Fritz Smith M.D. - 12/20/2021 9:00 AM CDT SUBJECTIVE REASON FOR VISIT 1. Malignant Neoplasm Of Breast Upper Outer Quadrant Female Left (HCC) HISTORY OF PRESENT ILLNESS Mrs. Joceline Uribe is a 51 y.o. 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 I saw her on October 25, 2021. She subsequently proceeded to further axillary lymph node dissection with Dr. Berger and left axillary lymphatic venous bypass by Dr. Saravia on November 12, 2021 removing 20 lymph nodes, 8 of which had metastatic disease with extranodal extension. She returns today for a CT simulation. Her oncologic history is as follows: Oncology History Malignant Neoplasm Of Breast Upper [...] CORE BIOPSY: 1. Invasive ductal carcinoma a. [place] grade: II of III; [place] score: 7 of 9 b. Angio-lymphatic invasion: [...] with the [employer] 20 gene breast and CAD PROGRAMMER cancer panel. No genetic mutations. 04/25/2021 Surgery and Procedures Left breast lumpectomy and left axillary sentinel lymph node biopsy was performed by Dr. Katherine Hawthorne. A) LEFT BREAST, LUMPECTOMY: 1. Invasive ductal carcinoma a. [place] grade 3; see comment b. 22 mm in greatest dimension 2. Breast Ancillary Testing: Performed on prior case [id number] a. Hormone Receptors: Estrogen receptor: Positive (96%, [...] of Lymph Nodes Examined: 6 Number of [place] Nodes Examined: 6 PATHOLOGIC STAGE CLASSIFICATION (pTNM, [...] Goal: Curative Planned Treatment Start Date: 12/30/2021 INTERVAL HISTORY The patient reports that she is currently feeling reasonably well. 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 When she is working she has pain that radiates from her left elbow to her left wrist. She rates the pain currently at 2 to 3/10. By the end of a workday, it increases to 7 to 8/10. She is not taking anything for currently. She does take baclofen occasionally in the evening for spasticity. She is working with occupational therapy in [place]. She has previously worked with Nancy in occupational therapy and Jayla in physical therapy at [facility]. She has switched to utilizing right arm ambulatory crutch She denies a history of prior radiation therapy, connective tissue disorders, or inflammatory bowel disease. Her ECOG performance status is 1. REVIEW OF SYSTEMS Review of systems was negative except as documented above. PATIENT REPORTED SYMPTOM SCREEN FATIGUE (Scale: 0 = no fatigue; 10 = worst fatigue you can imagine): 3 PAIN (Scale: 0 = no pain; 10 = worst pain you can imagine): 2 OVERALL QUALITY OF LIFE (Scale: 0 = as bad as can be; 10 = as good as can be): 8 OBJECTIVE BP 113/63 (BP Location: Right arm, Patient Position: Sitting, Cuff Size: Regular) Pulse 62 Temp 36.3 ??C (Temporal) Wt 83.8 kg BMI 30.41 kg/m?? PHYSICAL EXAM General: Patient is awake, alert, and oriented to person, place, and time. No apparent distress. Sheis here today with her Krunal. Lymph: No palpable supraclavicular, infraclavicular, or axillary adenopathy on either side. Extremities: Left upper extremity range of motion is full. She does have a compression sleeve in place. She has some palpable and visible lymphedema at the left wrist despite the compression sleeve. Breasts: Examined in the supine position at the treatment machine with the water mechanic of the therapists, Mary, RTT. The left breast has an everted nipple with a well-healed surgical scar in the upper outer quadrant radiating from the 1 o'clock to 3 o'clock position no palpable masses, no o verlying skin changes, and no expressible nipple discharge. There is also well- healed incision in the left axilla. DIAGNOSTICS I reviewed the patient's imaging and pathology reports. ASSESSMENT / PLAN #1 Stage IIB (pT2, pN2a, cM0, G3, ER+, LA+, HER2-) invasive ductal carcinoma of the left [...] lymph node dissection, moderate #5 Chemotherapy-induced neuropathy I again had a detailed discussion with the patient and her spouse regarding the risks, benefits, andalternatives of radiotherapy in this setting. I reviewed the NCCN guidelines in formulating my recommendations. I went over these with the patient. We discussed standard fractionated whole breast and regional lymph node radiotherapy to a dose of 5000 cGy in 25 fractions with simultaneous integrated boost to the lumpectomy cavity to a dose of 5500 cGy or 5625 cGy in 25 fractions utilizing IMRT. We also discussed the possibility of hypofractionated radiotherapy treating the whole breast to a dose of 4625 cGy in 16 fractions with a simultaneous integrated boost to the lumpectomy cavity to a dose of 4800 cGy in 16 fractions utilizing IMRT. IMRT is indicated so as to spare high radiation dose to the adjacent heart, lungs, and brachial plexus. I agree with Dr. Krishna that we will not boost to the axilla now that she has had further axillary lymph node dissection because of the patient's pre-existing neuropathy and spinal cord injury despite the fact that there was residual axillary lymph nodes with extranodal extension. Patient, her spouse, and I agreed on standard fractionation. She understands that if her heart and lung dosing is acceptable with photon therapy, we will refer her back to Dr. Krishna for consideration of proton therapy. I discussed the logistics as well as the acute and chronic side effects of treatment in detail. The acute side effects are common and include breast erythema, swelling, discomfort, and possible peelingof the skin, mild sore throat/pain with swallowing near the end of treatment, and fatigue. Long-term side effects could include skin changes and texture changes of the breast, possible breast asymmetry, a very small risk of radiation pneumonitis (1%), pulmonary scarring (typically of no clinical significance), increased risk of rib fracture with significant trauma, worsening lymphedema, accelerated coronary artery disease (minimized with a breath hold technique), hypothyroidism (30-50% risk), a verysmall risk of brachial plexopathy (<1%), and a very small risk of secondary malignancy (less than0.2%). For her left wrist in arm pain, we agreed to try gabapentin starting at 100 mg in the evening titrating up every 3-5 days to a target dose of 300 mg each evening. This can interact with baclofen causing worsening respiratory depression. She and her spouse are aware of this and will watch for it. She is connected with occupational therapy in [place]. She has also worked with physical therapy and occupational therapy in [place]. After this discussion, I provided the patient with a written summary of my recommendations. Her questions and those of her spouse were answered to their verbalized satisfaction. The patient verbally stated that she would like to proceed with treatment and signed the consent form. She will undergo CT si mulation today. We will endeavor to begin treatment December 30, 2021. She understands that I will be away for the next 2 weeks, [address] Dr. Guerrero will be caring for her in my absence. CONSENT Discussed the risks, benefits, alternatives, and the necessity of other members of the healthcare team participating in the procedure. All questions answered and consent given. I have spent 40 minutes in caring for this patient today including both uqel-wg-nfbs and non cyuc-zx-btvy time. Signed by: Fritz Smith M.D. 12/20/2021 10:51 AM CDT Radiation Oncology [facility] [address] [place] [address] documented in this encounter Miscellaneous Notes Addendum Note - Marcello Burciaga - 12/20/2021 9:00 AM CDT Encounter addended by: Marcello Burciaga on: 12/20/2021 1:14 PM Actions taken: Letter saved documented in this encounter Plan of Treatment Scheduled Referrals Name Type Priority Associated Order Schedule Diagnoses Radiation Oncology Outpatient Referral Routine On ce for 1 office visit Occurrences sta rting (clinic) 12/20/2021 unti l 12/20/2021 documented as of this encounter Visit Diagnoses Diagnosis Malignant Neoplasm Of Breast Upper Outer Quadrant Female Left (HCC) - Primary documented in this encounter
--- OUTSIDE RECORDS SUMMARY | 2022-04-03 11:27 | XMS_ITS | Encounter Summary ---
:1970 Author Organization [facility] Address [address] [place] [address] Care Team Providers Name Role Phone Unavailable Primary Care Provider Unavailable Reason for Referral Outpatient (Routine) - Closed Specialty Diagnoses / Procedures Referred By Contact Refer red To Contact Plastic Surgery Diagnoses Marlen Ruvalcaba APRNMan[facility] D.N.P. [address] [place] [address] Referral ID Status Reason Start Date Expiration Date Visits Requ ested Visits Authorized [id number] Closed 10/25/2021 10/25/2022 1 1 Scheduling Instructions With Marlen Reason for Visit Outpatient (Routine) - Closed Specialty Diagnoses / Procedures Referred By Contact Refer red To Contact Plastic Surgery Diagnoses Julissa PandyaManhattan [facility], [facility] P[facility] P.A., M.S. [address] [place] [phone] Referral ID Status Reason Start Date Expiration Date Visits Requ ested Visits Authorized [id number] Closed 10/25/2021 10/25/2022 1 1 Encounter Details Date Type Department Care Team Description 11/25/2021 Office Visit Division of Plastic Marlen Ruvalcaba Afterca re Plastic Surgery in [place], MEDICAL PHOTOGRAPHER, C.N.P., Surge ry (Primary Dx) [place] D.N.P. [address] [place] [phone] Social History Tobacco Use Types Packs/Day Years [...] or relatives? How often do you attend gnosticist or More than 4 times per year 10/31/2021 gnosticist services? Do you belong to any clubs or No 10/31/2021 organizations such as gnosticist groups, unions, fraternal or athletic groups, or [...] Notes Marlen Ruvalcaba, CARLY, C.N.P., D.N.P. - 11/25/2021 2:00 PM CDT SUBJECTIVE CHIEF COMPLAINT / REASON FOR VISIT 1. Mrs. Joceline Uribe underwent left axillary lymph node dissection with Dr. Berger, and left axillary venous bypass on 11/12/[address] Saravia. 2. Routine Post Op visit - 2 weeks postop HISTORY OF PRESENT ILLNESS Mrs. Joceline Uribe is a very pleasant 51 y.o. female who presents today for a routine postop check. She reports that recovery has been going well and rates her pain <1/10 describing it as minimal. She denies signs/symptoms of infection, specifically fevers, chills, malaise, strange drainage from surgical site, swelling or bulging of surgical site. They report they are following all activity restrictions and are wearing compression Oumar wrap 08/12 as instructed. They report they are managing drains at home, last output being 23 cc yesterday and 30 cc a day before; and today 10 cc so far. She reports that her drain has not been holding suction verywell deflating within 30 minutes after they put it to suction. Drain output has decreased. Overall, she is doing well since surgery and have no chief complaints. REVIEW OF SYSTEMS Pertinent items noted in HPI. OBJECTIVE PHYSICAL EXAM General: Patient is alert and oriented x 3. She does not appear to be in acute distress. Very pleasant. Accompanied by her . Left Arm: axillary incision clean, dry with a couple of scabs present along incision, and intact without erythema or drainage noted. No obvious signs of fluid accumulation or infection noted. Drains/Drain sites: All drain/s sites are free of signs of infection and drainage is serosanguineousin nature. Drain removed in office today ASSESSMENT / PLAN 1. Joceline Uribe underwent left axillary lymph node dissection with Dr. Berger, and left axillary venous bypass on 11/12/[address] Saravia. 2. Routine Post Op visit - 2 weeks postop It was a pleasure seeing Joceline Uribe today in the clinic. She is recovering nicely. She is instructed to continue to wrap her left arm with Oumar wraps and compression fashion at all times except for when showering for 4 weeks after surgery or until otherwise instructed. Patient will be able to go backto her previous lymphedema management sleeve After 4 Weeks Postop. Activity and weight restrictions also discussed with the patient in detail. She understands the more active she is, the more fluid accumulates in the operated sites, increasing her risk for fluid collections and infection. She should not abduct or forward flex her left shoulder with a 60?? until she is 4 weeks from surgery. Keeping left arm 30-60 degrees as much as possible but no hyperextending greater than 60??. She should avoid repetitive arm movements, pushing, pulling, or lifting anything more than 10 lb or any strenuous activity until she is 4 weeks from surgery. We discussed that gentle shoulder range of motion and stretching to keep her shoulder loose would be okay. She can also go for light walks and keep heart rate <100 with activities. Signs/symptoms of an infection were reviewed with the patient and they was instructed to call us immediately if any of these occur. She may shower, however, she should not soak in tub/water until she is at least 6-8 weeks from surgery and all incisions have healed, and are without any scabbing or otherwise compromise. Incisions should be examined for any openings or otherwise abnormalities. Per patient report, drain output for the last two days has been 23 cc yesterday and 30 cc the day before which has met criteria for removal and serosanginous in color. The drain site is free of any signs of infection. Drain was removed by our GARMENT PARTS CUTTER HAND colleague without any difficulty. The patient was instructed not to shower for 48 hours and not to submerge in water until the drain site and all surgical wounds are completely closed and the scabs have fallen off naturally. Patient will return to clinic in 2-3 weeks for her next routine post op appointment or sooner shouldshe have any difficulties. Patient has all appropriate phone numbers to call in case she have questions or concerns. Photographs obtained with patient's permission. All questions were asked and answered per patient report. PATIENT EDUCATION Ready to learn, no apparent learning barriers were identified; learning preferences include listening. Explained diagnosis and treatment plan; patient expressed understanding of the content. documented in this encounter Plan of Treatment Scheduled Referrals Name Type Priority Associated Diagnoses Order S [facility] Plastic Surgery Outpatient Referral Routine Expec eduardo: office visit 12/10/2021 (clinic) (Approximate), Expires: 02/25/2023 documented as of this encounter Visit Diagnoses Diagnosis Aftercare Plastic Surgery - Primary documented in this encounter
--- OUTSIDE RECORDS SUMMARY | 2022-04-03 11:27 | XMS_ITS | Encounter Summary ---
:1970 Author Organization [facility] Address [address] [place] [address] Care Team Providers Name Role Phone Unavailable Primary Care Provider Unavailable Reason for Referral Radiation Therapy (Routine) - Closed Specialty Diagnoses / Procedures Referred By Contact Refer red To Contact Diagnoses Malignant Neoplasm Of Breast Upper Outer Quadrant Female Left (HCC) Fritz Smith M.D. [facility] Region Procedures Initial Rad Onc Treatment Planning CT Simulation [address] [place], [place] [phone] Referral ID Status Reason Start Date Expiration Date Visits Requ ested Visits Authorized [id number] Closed 12/19/2021 12/19/2022 1 1 Reason for Visit Radiation Therapy (Routine) - Closed Specialty Diagnoses / Procedures Referred By Contact Refer red To Contact Diagnoses Malignant Neoplasm Of Breast Upper Outer Quadrant Female Left (HCC) Fritz Smith M.D. [facility] Region Procedures Initial Rad Onc Treatment Planning CT Simulation [address] [place] [address] Referral ID Status Reason Start Date Expiration Date Visits Requ ested Visits Authorized [id number] Closed 12/19/2021 12/19/2022 1 1 Encounter Details Date Type Department Care Team Description 12/20/2021 Hospital Encounter Department of Leenstra, Fritz Malig nant Neoplasm Radiation Oncology Selma Shah Of Breast Upper in [place], [facility] [address] [facility], [place] Female Left (HCC) [address] [address] [place], [place] [phone] (Work) [phone] Social History Tobacco Use Types Packs/Day Years [...] or relatives? How often do you attend judaism or More than 4 times per year 10/31/2021 orthodoxy services? Do you belong to any clubs or No 10/31/2021 organizations such as judaism groups, unions, fraternal or athletic groups, or [...] (LIORESAL) 10 mg TAKE 1-2 TABLETS 0 /0 10/2021 tablet (10-20 MG) BY MOUTH ONCE [...] 300 mg documented as of this encounter Procedure Notes Prudence Bass, RTT - 12/20/2021 9:30 AM CDTAssociated Order(s): Initial Rad Onc Treatment Planning CT Simulation Pre-Procedure Diagnose(s): Malignant Neoplasm Of Breast Upper Outer Quadrant Female Left (HCC) Post-Procedure Diagnose(s): Malignant Neoplasm Of Breast Upper Outer Quadrant Female Left (HCC) Initial Rad Onc Treatment Planning CT Simulation Date/Time: 12/20/2021 10:38 AM Performed by: Fritz Smith M.D. Authorized by: Fritz Smith M.D. Simulation was performed under physician supervision based on physician order in preparation for radiation therapy. Physician was immediately available to provide assistance and direction throughout the procedure. Written consent for treatment was completed or confirmed. The patient was appropriately identified and placed in the treatment position using the necessary immobilization to ensure a reproducible treatment position. Reference rodriguez were placed to facilitate marking of isocenter. Area scanned:Chest Contrast used for the simulation procedure: None Patient position:head first supine and arms up Custom immobilization: Vac-karen Motion management: Breath hold scan Bolus: No CT guidance: Following positioning of the patient, a series of slices was obtained to be utilized intreatment planning. CT images were transferred to the FOODit treatment planning system, after a reference isocenter was determined and marked. Segmentation and treatment planning will take place priorto treatment delivery. Patient set up and imaging was appropriate and completed without incident. Director Of Field Coordination use:No documented in this encounter Plan of Treatment Not on filedocumented as of this encounter Procedures Procedure Name Priority Date/Time Associated Comments Diagnosis INITIAL RAD ONC Routine 12/20/2021 10:38 AM Malignant Neoplasm Results for this TREATMENT PLANNING CDT Of Breast Upper proced ure are in CT SIMULATION Outer Quadrant the results Female Left (HCC) section. documented in this encounter Results Initial Rad Onc Treatment Planning CT Simulation (12/20/2021 10:38 AM CDT) Specimen (Source) Anatomical Location Collection Method / Collectio n Time Received Time / Laterality Volume Narrative [facility] - 12/20/2021 10:38 AM CDT Prudence Bass, ROBBY ? 12/20/2021 10:39 AM Initial Rad Onc Treatment Planning CT Si mulation Date/Time: 12/20/2021 10:38 AM Performed by: Fritz Smith M.D. Authorized by: Fritz Smith M.D. Fritz Smith M.D. RADIATION ONCOLOGY ORDERABLE S Performing Organization Address City/State/ZIP Code Phon e Number [facility] na documented in this encounter Visit Diagnoses Diagnosis Malignant Neoplasm Of Breast Upper Outer Quadrant Female Left (HCC) documented in this encounter
--- OUTSIDE RECORDS SUMMARY | 2022-04-03 11:27 | XMS_ITS | Encounter Summary ---
:1970 Author Organization [facility] Address [address] [place] [address] Care Team Providers Name Role Phone Unavailable Primary Care Provider Unavailable Reason for Visit Reason Comments Follow-up Encounter Details Date Type Department Care Team Description 12/23/2021 Documentation Division of Breast and PilArline montanez D.OYe Follow-up Melanoma Surgical Oncology [address] [facility] in [place], [place] [address] [facility] [address] [place] [address] [phone] Social History Tobacco Use Types Packs/Day Years [...] or relatives? How often do you attend yazidism or More than 4 times per year 10/31/2021 methodist services? Do you belong to any clubs or No 10/31/2021 organizations such as yazidism groups, unions, fraternal or athletic groups, or [...] documented as of this encounter Progress Notes Rubén Leiva RYeN. - 12/23/2021 11:46 AM CDT 30 Day Breast Surgery Follow-Up: Source of information: Chart review performed. Patient saw Dr. Saravia's team on 12/18/2021. Did patient have any complication(s)?: No Standard postoperative chart review. Surgical service of [facility]. Status post left axillary lymph node dissection and lymphovenous bypass on 11/12/2021. Chart review for follow-up on postoperative status >30 days after surgery. Chart review did not reveal any hospital readmission and/or reoperation. The following potential postoperative complications were reviewed: surgical site infection, wound dehiscence, hematoma, skin necrosis, seroma, and other potential postoperative issues including respiratory complications, urinary tract infection, and DVT. Chart review did not reveal any complications. Chart review revealed postoperative swelling that is being managed via compression and left upper extremity nerve discomfort being treated with Gabapentin and PT. documented in this encounter Plan of Treatment Not on filedocumented as of this encounter Visit Diagnoses Not on filedocumented in this encounter
--- OUTSIDE RECORDS SUMMARY | 2022-04-03 11:27 | XMS_ITS | Encounter Summary ---
:1970 Author Organization [facility] Address [address] [place] [id number] Care Team Providers Name Role Phone Unavailable Primary Care Provider Unavailable Reason for Visit Outpatient (Routine) - Closed Specialty Diagnoses / Procedures Referred By Contact Refer red To Contact Medical Oncology / Diagnoses Malignant Neoplasm Of Breast Upper [facility] Female Left (HCC) Jennifer Berger D.O. [facility] [address] [place] [address] Referral ID Status Reason Start Date Expiration Date Visits Requ ested Visits Authorized [id number] Closed 11/11/2021 11/11/2022 1 1 Encounter Details Date Type Department Care Team Description 11/22/2021 Comprehensive Visit Department of Adriana Nicolas Neoplasm Oncology in [place] Of Breast [facility], [address] [place], [place] Female Left (HCC) [address] [place] [id number] [place], [place] [phone] (Work) [phone] Social History Tobacco Use Types Packs/Day Years [...] More than 4 times per year 10/31/2021 orthodox services? Do you belong to any clubs or No 10/31/2021 organizations such as yazidism groups, unions, fraFarecast or athletic groups, or school groups? How [...] Sign Reading Time Taken Comments Blood Pressure 105/71 11/22/2021 9:49 AM CDT Pulse 76 11/22/2021 9:49 AM CDT Temperature 36 ??C (96.8 ??F) 11/22/2021 9:49 AM CDT Respiratory Rate 16 11/22/2021 9:49 AM CDT Oxygen Saturation 98% 11/22/2021 9:49 AM CDT Inhaled Oxygen Concentration - - Weight 83.9 kg (184 lb 15.5 oz) 11/22/2021 9:49 AM CDT Height 166 cm (5' 5.35) 11/22/2021 9:49 AM CDT Body Mass Index 30.45 11/22/2021 9:49 AM CDT documented in this encounter Consult Macy Thomas M.D. - 11/22/2021 10:00 AM CDT SUBJECTIVE LOCAL ONCOLOGIST Dr. Martins PRIMARY IRVING ONCOLOGIST Primary Fellow: Dr. Macy Esquivel (Katie) Primary Staff: Dr. Nicolas REASON FOR VISIT Locally advanced breast cancer, ER/MI+, HER2 low + (negative by FISH) HISTORY OF PRESENT ILLNESS Oncology History Malignant Neoplasm Of Breast Upper [...] with the Invitae 20 gene breast and SCRAP DROP OPERATOR cancer panel. No genetic mutations. 04/25/2021 Surgery and Procedures Left breast lumpectomy and left axillary sentinel lymph node biopsy was performed by Dr. Katherine Hawthorne. A) LEFT BREAST, LUMPECTOMY: 1. Invasive ductal carcinoma a. Lexy grade 3; see comment b. 22 mm in greatest dimension 2. Breast Ancillary Testing: Performed on prior case [id number] a. Hormone Receptors: Estrogen receptor: Positive (96%, [...] of Lymph Nodes Examined: 6 Number of [place] Nodes Examined: 6 PATHOLOGIC STAGE CLASSIFICATION (pTNM, [...] on 10/23/2021) Site: Left Breast Technique: 3D LEAD POURER Goal: Curative Planned Treatment Start Date: 11/04/2021 INTERVAL UPDATES: Joceline Uribe presents to clinic today with her and daughter for consultation with Medical Oncology to review adjuvant treatment of her locally advanced breast cancer. We reviewed her above oncology history. Most recently, she has undergone a left axillary lymph node dissection, whichrevealed 8 of 20 positive lymph nodes. She is healing well from surgery. She has some fatigue and discomfort in the L arm, but otherwise has no significant symptoms to report. She has been taking tamoxifen. Her local oncologist this considering 5 years of tamoxifen followed by an aromatase inhibitor for another 5 years. They are considering abemaciclib as well. 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 FAMILY HISTORY Breast cancer: mother at age 50, sister at age 44, and maternal grandmother at age 48. Her brother is on tamoxifen for gynecomastia without malignancy. Father had throat, lung, and bladder cancer REVIEW OF SYSTEMS Pertinent per HPI; all other systems negative OBJECTIVE BP 105/71 (BP Location: Right arm, Patient Position: Sitting, Cuff Size: Large) Pulse 76 Temp 36??C (Tympanic) Resp 16 Ht 166 cm Wt 83.9 kg SpO2 98% BMI 30.45 kg/m?? PHYSICAL EXAM General: Patient is well-appearing in no acute distress. Skin: No rashes or lesions noted. HEENT: EOMI, no icterus. CV: RRR, no m/r/g. Lungs: Normal WOB on room air. Clear to auscultation bilaterallly. No wheezes/crackles. Abdomen: Non-distended Ext: Left arm wrapped with JOSÉ ANTONIO drain in place; legs are warm without pitting edema Mental Status: Answering all questions appropriately. DIAGNOSTICS Reviewed PET from September 2021: 1. Interval response of the left axillary FDG avid gisell metastasis with no evidence of FDG avid recurrence or metastatic disease. 2. Resolution of prior focal left adnexal FDG uptake. ASSESSMENT / PLAN #Locally advanced breast cancer: IDC, grade 3, ER/MI+, HER2 low positive (IHC 2+), 8/20 positive axillary lymph nodes on recent left axillary lymph node dissection; stage IIIb; BRCA WT Mrs. Uribe is a 51 y.o. who was initially diagnosed with breast cancer in Mar 2021. She presented with skin dimpling and palpable axillary lymph nodes. Pathology showing IDC, grade 3, ER/MI+, SEO8vmd positive (IHC 2+). Ki67 = 14%. She was treated with a lumpectomy- at that time sentinel lymph node biopsy revealed 5/6 positive lymph nodes. She then underwent adjuvant chemotherapy with AC-T. Later, a PET scan in Jun 2021 revealed FDG avidity in the left axilla. Chemo completed mid September 2021. She then underwent a left axillary lymph node dissection at the end of October 2021. 8 of 20 lymph nodes were positive for breast cancer metastases. Radiation Oncology is planning for radiation to start 5-6 weeks after surgery. Her local oncologist has her on tamoxifen already, which we agree with. We recommend checking her menopausal status with estradiol and FSH every 6 months. We have requestedthis blood work today. When she is in the menopausal range for 1 year, then consider changing to an aromatase inhibitor. She should also start on Zometa every 6 months for 3 years was her vitamin-D levels are in adequate range. She will undergo a dental examination prior to starting. Given the high risk nature of her disease, we do not need a baseline DEXA scan, but could get a DEXA after completing Zometa therapy. Finally, we agree with starting her on abemaciclib after completing radiation therapyfor 2 years since she had 4+ lymph nodes positive. She plans to continue her care with her local medical oncologist, so we will be available for any questions. - Blood work today: CBC, CMP, vitamin-D, FSH, estradiol - Continue with tamoxifen, then after 1 year of menopausal estradiol, change to an aromatase inhibitor - Start abemaciclib after radiation, continue for 2 years - Start Zometa after vitamin-D levels are adequate We have reviewed the above information in detail and have agreed on the plan at this time. Macy Esquivel MD (Katie) Hematology/Oncology Fellow [id number] ADMINISTRATIVE BILLING Billing time: 75 minutes Adriana Nicolas M.D. - 11/22/2021 10:00 AM CDT REQUESTING PROVIDER Jennifer Berger D.O. [address] [place] [address] LOCAL ONCOLOGIST No care steam room attendant to display PRIMARY IRVING ONCOLOGIST No care steam room attendant to display REASON FOR CONSULT Joceline Uribe is a 51 y.o. female who presents for evaluation of T2N3 ER+MI+Her2+ breast cancer, seen today with Dr. Esquivel. HISTORY OF PRESENT ILLNESS Oncology History Malignant Neoplasm Of Breast Upper [...] CORE BIOPSY: 1. Invasive ductal carcinoma a. [place] grade: II of III; [place] score: 7 of 9 b. Angio-lymphatic invasion: [...] with the Invitae 20 gene breast and SCRAP DROP OPERATOR cancer panel. No genetic mutations. 04/25/2021 Surgery and Procedures Left breast lumpectomy and left axillary sentinel lymph node biopsy was performed by Dr. Katherine Hawthorne. A) LEFT BREAST, LUMPECTOMY: 1. Invasive ductal carcinoma a. [place] grade 3; see comment b. 22 mm in greatest dimension 2. Breast Ancillary Testing: Performed on prior case [id number] a. Hormone Receptors: Estrogen receptor: Positive (96%, [...] of Lymph Nodes Examined: 6 Number of [place] Nodes Examined: 6 PATHOLOGIC STAGE CLASSIFICATION (pTNM, [...] on 10/23/2021) Site: Left Breast Technique: 3D LEAD POURER Goal: Curative Planned Treatment Start Date: 11/04/2021 FAMILY HISTORY Family History Problem Relation Age of Onset ??? Breast cancer Mother Double mastectomy, liver cancer 3 years later ??? Hypertension Mother ??? Alcohol abuse Mother ??? Obesity Mother ??? Lung cancer Father Smoking, asbestos ??? Other cancer Father Bladder, throat ??? Obesity Father ??? Alcohol abuse Maternal Grandfather ??? Stroke Paternal Grandmother ??? Breast cancer Sister Lumpectomy, 18 year survivor ??? Skin cancer Sister ??? Skin cancer Brother ??? Obesity Brother MEDICATIONS Current Outpatient Medications: ??? acetaminophen (TYLENOL) 500 mg tablet, Take 2 tablets (1,000 mg total) by mouth every 6 (six) hours for 3 days. Take 2 tablets up to four times daily for pain, Disp: 100 tablet, Rfl: 0 ??? baclofen (LIORESAL) 10 mg tablet, TAKE 1-2 TABLETS (10-20 MG) BY MOUTH ONCE DAILY IF NEEDED (MUSCLE SPASMS)., Disp: , Rfl: ??? cetirizine (ZyrTEC) 10 mg tablet, Take 10 mg by mouth daily., Disp: , Rfl: ??? famotidine (PEPCID) 20 mg tablet, Take 20 mg by mouth daily., Disp: , Rfl: ??? levothyroxine (SYNTHROID, LEVOTHROID) 75 mcg tablet, Take 75 mcg by mouth every morning before breakfast., Disp: , Rfl: ??? oxyCODONE (ROXICODONE) 5 mg immediate release tablet, Take 1 tablet (5 mg total) by mouth every 4 (four) hours as needed for pain Indication: Acute Pain Exception., Disp: 15 tablet, Rfl: 0 ??? tamoxifen (NOLVADEX) 20 mg tablet, Take 20 mg by mouth daily., Disp: , Rfl: ??? triamcinolone (KENALOG) 0.1 % cream, as needed., Disp: , Rfl: OBJECTIVE BP 105/71 (BP Location: Right arm, Patient Position: Sitting, Cuff Size: Large) Pulse 76 Temp 36??C (Tympanic) Resp 16 Ht 166 cm Wt 83.9 kg SpO2 98% BMI 30.45 kg/m?? Rate your distress: 2 LABORATORY DATA Recent Results (from the past 24 hour(s)) CBC with Differential, Blood Collection Time: 11/22/21 11:33 AM Result Value Hemoglobin 13.6 Hematocrit 41.2 Erythrocytes 4.34 MCV 94.9 RBC Distrib Width 13.0 Platelet Count 263 Leukocytes 6.5 Neutrophils 4.25 Lymphocytes 1.50 Monocytes 0.64 Eosinophils 0.04 Basophils 0.03 RADIOLOGICAL DATA No images are attached to the encounter. ASSESSMENT / PLAN #1 Malignant Neoplasm Of Breast Upper Outer Quadrant Female Left (HCC) We are recommending adjuvant Zometa for the next three years (every six months) starting after she sees a dentist and has a 25-OH vitamin D level checked (we will do the latter here today). We are alsorecommending ten years of adjuvant endocrine therapy (starting with tamoxifen but then switching to aromatase inhibitor (AI) as soon as postmenopausal status is confirmed by E2 levels in that range over the next year, hopefully). I would add abemaciclib to her endocrine therapy as soon as radiation finishes. PATIENT EDUCATION Ready to learn, no apparent learning barriers were identified; learning preferences include listening. Explained diagnosis and treatment plan; patient expressed understanding of the content. documented in this encounter Plan of Treatment Not on filedocumented as of this encounter Results Follicle-Stimulating Hormone (FSH), Serum (11/22/2021 11:33 AM CDT) P athologist Signature Follicle-Stim 65.8 IU/L 11/22/2021 DTL Hormone (FSH), 12:37 PM CDT S Comment: ----REFERENCE VALUE---- Premenopausal: 2.9-14.6 IU/L (Follicular) 4.7-23.2 IU/L (Midcycle) 1.4-8.9 IU/L (Luteal) Postmenopausal: 16.0-157.0 IU/L Specimen Anatomical Collection Method Collection Time Receive d Time (Source) Location / / Volume Laterality Blood (Blood, 11/22/2021 11:33 11/22/2021 Venous) AM CDT 12:05 PM CDT Macy Esquivel M.D. LAB BLOOD ADD-ON Performing Organization Address City/State/ZIP Code Phon e Number [facility] - [address] [place], [place] [address] [place] [address] Laboratories-[facility] [address] Estradiol - (for men, children, and post-menopausal women) (11/22/2021 11:33 AM CDT) P athologist Signature Estradiol, Mass 11 pg/mL 11/25/2021 [facility] Spectrometry, S 1:58 PM CDT Comment: ----REFERENCE VALUE---- Premenopausal: 15-350 (E2 levels vary wi gabriele through the menstrual cycle.) Postmenopausal: <10 ----ADDITIONAL INFORMATION---- This test was developed and its performa nce characteristics determined by [facility] in a manner consistent with CLIA requirements. This test has not been cleared or approved by the [place] and Drug Administration. Specimen Anatomical Collection Method Collection Time Receive d Time (Source) Location / / Volume Laterality Blood (Blood, 11/22/2021 11:33 11/23/2021 7:43 Venous) AM CDT AM CDT Macy Esquivel M.D. LAB BLOOD NON ADD-ON Performing Organization Address City/[facility] [address]/[facility] Code Phon e Number [facility] [address] [place], [place] [address] [facility] [place] [address] Laboratory Medicine and Pathology [address] [place] 1,25-Dihydroxyvitamin D (11/22/2021 11:33 AM CDT) Patholo gist Method Time Signature 1, 25 32 18 - 78 11/28/2021 [facility] DIHYDROXYVITAMIN D, pg/mL 5:40 PM CDT S Comment: ----ADDITIONAL INFORMATION---- This test was developed and its performa nce characteristics determined by [facility] in a manner consistent with CLIA requirements. This test has not been cleared or approved by the [place] and Drug Administration. Specimen Anatomical Collection Method Collection Time Receive d Time (Source) Location / / Volume Laterality Blood (Blood, 11/22/2021 11:33 11/25/2021 7:17 Venous) AM CDT AM CDT Macy Esquivel M.D. LAB BLOOD ADD-ON Performing Organization Address City/State/ZIP Code Phon e Number [facility] [address] [place], [place] [address] [address] [facility] [place] [address] Laboratory Medicine and Pathology [address] [place] Comprehensive Metabolic Panel (11/22/2021 11:33 AM CDT) P athologist Signature Potassium, S 4.9 3.6 - 5.2 11/22/2021 DTL mmol/L 12:31 PM CDT Sodium, S 144 135 - 145 11/22/2021 DTL mmol/L 12:31 PM CDT Chloride, S 107 98 - 107 11/22/2021 DTL mmol/L 12:31 PM CDT Bicarbonate, S 27 22 - 29 11/22/2021 DTL mmol/L 12:31 PM CDT Anion Gap 10 7 - 15 11/22/2021 DTL 12:31 PM CDT BUN (Blood Urea 16 6 - 21 11/22/2021 DTL Nitrogen), S mg/dL 12:31 PM CDT Creatinine 0.77 0.59 - 11/22/2021 DTL 1.04 mg/dL 12:31 PM CDT eGFR-Non 89 >=60 11/22/2021 DTL Black/ mL/min/BSA 12:31 PM CDT Cymro Comment: ----ADDITIONAL INFORMATION---- Estimated GFR calculated using the 2009 CKD_EPI creatinine equation. eGFR-Black/ >90 >=60 mL/min/BSA 2021 12:31 PM CDT DTL Comment: ----ADDITIONAL INFORMATION---- Estimated GFR calculated using the 2009 CKD_EPI creatinine equation. Calcium, Total, S 9.5 8.6 - 10.0 mg/dL 11/22/2021 12:3 1 PM CDT DTL Glucose, S 98 70 - 140 mg/dL 11/22/2021 12:31 PM CDT DTL Protein, Total, S 6.6 6.3 - 7.9 g/dL 11/22/2021 12:31 PM CDT DTL Albumin, S 4.3 3.5 - 5.0 g/dL 11/22/2021 12:31 PM CDT DTL Aspartate Aminotransferase 15 8 - 43 U/L 11/22/2021 1 2:31 PM CDT DTL (AST), S Alkaline Phosphatase, S 54 35 - 104 U/L 11/22/2021 12 :31 PM CDT DTL Alanine Aminotransferase (ALT), 13 7 - 45 U/L 022 12:31 PM CDT DTL S Bilirubin, Total, S 0.2 <=1.2 mg/dL 11/22/2021 12:31 P M CDT DTL Specimen Anatomical Collection Method Collection Time Receive d Time (Source) Location / / Volume Laterality Blood (Blood, 11/22/2021 11:33 11/22/2021 Venous) AM CDT 12:05 PM CDT Macy Esquivel M.D. LAB BLOOD ADD-ON Performing Organization Address City/State/ZIP Code Phon e Number [facility] - [address] [place] [phone] [facility] [place] [address] Laboratories-[address] CBC with Differential, Blood (11/22/2021 11:33 AM CDT) P athologist Signature Hemoglobin 13.6 11.6 - 11/22/2021 DTL 15.0 g/dL 11:57 AM CDT Hematocrit 41.2 35.5 - 11/22/2021 DTL 44.9 % 11:57 AM CDT Erythrocytes 4.34 3.92 - 11/22/2021 DTL 5.13 11:57 AM CDT x10(12)/L MCV 94.9 78.2 - 11/22/2021 DTL 97.9 fL 11:57 AM CDT RBC Distrib Width 13.0 12.2 - 11/22/2021 DTL 16.1 % 11:57 AM CDT Platelet Count 263 157 - 371 11/22/2021 DTL x10(9)/L 11:57 AM CDT Leukocytes 6.5 3.4 - 9.6 11/22/2021 DTL x10(9)/L 11:57 AM CDT Neutrophils 4.25 1.56 - 11/22/2021 DTL 6.45 11:57 AM CDT x10(9)/L Lymphocytes 1.50 0.95 - 11/22/2021 DTL 3.07 11:57 AM CDT x10(9)/L Monocytes 0.64 0.26 - 11/22/2021 DTL 0.81 11:57 AM CDT x10(9)/L Eosinophils 0.04 0.03 - 11/22/2021 DTL 0.48 11:57 AM CDT x10(9)/L Basophils 0.03 0.01 - 11/22/2021 DTL 0.08 11:57 AM CDT x10(9)/L Specimen Anatomical Collection Method Collection Time Receive d Time (Source) Location / / Volume Laterality Blood (Blood, 11/22/2021 11:33 11/22/2021 Venous) AM CDT 11:47 AM CDT Macy Esquivel M.D. LAB BLOOD ADD-ON Performing Organization Address City/State/ZIP Code Phon e Number [facility] - [address] [place], [place] [address] [facility] [place] [address] Laboratories-[facility] [address] documented in this encounter Visit Diagnoses Diagnosis Malignant Neoplasm Of Breast Upper Outer Quadrant Female Left (HCC) documented in this encounter
--- OUTSIDE RECORDS SUMMARY | 2022-04-03 11:27 | XMS_ITS | Encounter Summary ---
:1970 Author Organization [facility] Address [address] [place] [address] Care Team Providers Name Role Phone Unavailable Primary Care Provider Unavailable Reason for Referral Occupational Therapy (Routine) - Authorized Specialty Diagnoses / Procedures Referred By Contact Refer red To Contact Diagnoses Lymphedema Post Mastectomy Eber Saravia M.D. [facility] Procedures OT Ongoing Treatment [address] [place] [address] Referral ID Status Reason Start Date Expiration Date Visits V isits Requested Authorized [id number] Authorized 10/25/2021 10/25/2022 6 6 Reason for Visit Physical Therapy (Routine) - Closed Specialty Diagnoses / Procedures Referred By Contact Refer red To Contact Diagnoses Malignant Neoplasm Of Breast Upper Outer Quadrant Female Left (HCC) Lymphedema Post Mastectomy Eber Saravia M.D. [facility] Procedures PT or OT eval and treat (first available) [address] [place] [address] Referral ID Status Reason Start Date Expiration Date Visits Requ ested Visits Authorized [id number] Closed 10/25/2021 10/25/2022 1 1 Encounter Details Date Type Department Care Team Description 11/25/2021 Comprehensive Visit Department of Physical Eber Hawkins M.D. [address] [place] [phone] Malignant Neoplasm Of Breast Upper Outer Quadrant Female Left (HCC); Medicine and Jeaneth Llamas O.T., CLT-KATHY [address] [place] [phone] Lymphedema Post Mastectomy Rehabilitation in [place], [place] [address] [place] [phone] Social History Tobacco Use Types Packs/Day Years [...] or relatives? How often do you attend jainism or More than 4 times per year 10/31/2021 mosque services? Do you belong to any clubs or No 10/31/2021 organizations such as jainism groups, unions, fraternal or athletic groups, or [...] place to sleep or slept in a alf (including now)? Education Answer Date Recorded What is the highest level of school Bachelor's degree (e.g., BA, AB, 10/31/2021 you have completed or the highest BS) degree you have received? Sex Assigned at Date Recorded Female 10/31/2021 2:05 PM CDT documented as of this encounter Consult Notes Jeaneth Llamas O.T., CLT-KATHY - 11/25/2021 1:00 PM CDT Occupational Therapy Lymphedema Outpatient Evaluation and Treatment Patient's Name: Joceline Uribe Referring Provider: Eber Saravia M.D. Rehab Diagnosis: 1. Malignant Neoplasm Of Breast Upper Outer Quadrant Female Left (HCC) 2. Lymphedema Post Mastectomy Reason for Referral: Physical therapy evaluation and treatment, ALND pre op History of Present Illness: Patient is a 51 year old female s/p lumpectomy and SLNB on the left (), adjuvant chemotherapy in setting of stage IIB invasive ductal carcinoma. On 11/12/2021 patient had a level 1-2 left axillary lymph node dissection as well as an LV bypass left axilla. Onset Date: 11/07/21 Payor: [employer] BLUE SHI[employer] / Plan: [employer] [place] [employer] SEGIP / Product Type: HMO / Total Visit Count: 1 SUBJECTIVE Activity and Prior Treatment Patient ambulates with 1 loft strand crutch right upper extremity. She has a history of quadriplegiathat occured in 2017. She lives with her supportive spouse. PERTINENT MEDICAL / SURGICAL HISTORY: Patient Active Problem List Diagnosis ??? Malignant Neoplasm Of Breast Upper Outer Quadrant Female Left (HCC) Past Surgical History: Procedure Laterality Date ??? BYPASS LYMPHOVENOUS/BYPASS LYMPHATICOVENOUS Left 11/12/2021 Procedure: LEFT AXILLARY BYPASS LYMPHOVENOUS, BYPASS LYMPHATICOVENOUS.; Surgeon: Eber Saravia M.D.; Location: [facility] ??? CERVICAL FUSION ??? DISSECTION LYMPH NODE - AXILLARY Left 11/12/2021 Procedure: LEFT AXILLARY LYMPH NODE DISSECTION.; Surgeon: Jennifer Berger D.O.; Location: [facility] ??? HYSTERECTOMY ??? LUMPECTOMY BREAST WITH SENTINEL NODE BIOPSY Left 04/25/2021 ??? LYMPHATIC MAPPING Left 11/12/2021 Procedure: LYMPHATIC MAPPING; Surgeon: Jennifer Berger D.O.; Location: [facility] ??? OTHER lymphatic sac surgery for Meniere's ??? OTHER N/A 11/12/2021 Procedure: Intraoperative upper extremity ICG lymphography mapping.; Surgeon: Eber Saravia M.D.; Location: [facility] ??? TONSILLECTOMY OBJECTIVE Precautions:You should perform gentle range of motion exercises between 30-60 degrees to prevent shoulder stiffness. Compression wrap from hand to axilla x4 weeks 24 hours a day except for bathing. Left shoulder range of motion within restrictions/precautions: Flexion 60, abduction 60, external rotation 90 Bio impedance: 11/25/2021: 12.1 Fall Risk Screening: Fall in the last 12 months: Yes Did you have an injury with the fall?: No Fall Risk Comments: May 2021 she started chemotherapy and this increased the frequency of falling, 5-6 falls since starting chemotherapy Left Upper Extremity 11/25/2021 10 cm 17.3 20 cm 16.3 30 cm 23.5 40 cm 25.6 50 cm 31.1 60 cm 30.9 Lymph Volume (L) 2429.42 ml Edema: Visually I cannot appreciate any edema in her upper extremity except in her digits today. TREATMENT Contacted plastics Service to see if she can stretch to 90??. Service will check with . In the meantime I positioned patient in supine and taught her supine stretches into abduction to 60??and hand over hand flexion to 60. She could easily perform 90?? of external rotation. Explained to patient that for the next couple of weeks until she is 4 weeks postop she has a restriction of 60?? and less primary team increases it to 90??. I have 4 weeks postop she no longer has restrictions and can continue to progress her range of motion, stretches. Used a doubled 4 in Oumar wrap to wrap patient from hand to axilla with the figure-eight technique. Placed cotton compression glove on her hand as she had minimal edema in digits today. Daughter has beenassisting with the wrap at home. At 4 weeks postop explained to patient she can transition back to her 20-30 sleeve and glove. She does not use anything at night. I would like to see her back when she returns to the clinic December 19 for surveillance as well as to check her range of motion and progress her home stretches as needed. Home Exercise Program/Education: [id number]: Pectoral Stretches after Breast Surgery Contact monitoring: PPE used during therapy: Therapist was wearing the following PPE throughout entire session: surgicalmask and eye protection Patient was wearing a mask during therapy session: yes Family member/caregiver present was wearing a mask: yes Assessment Patient seen in follow-up from left axillary lymph node dissection as well as LV bypass. Reviewed Oumar bandaging to left upper extremity as well as stretches that she can begin within restrictions per postop instruction. Instructed her how to advance the stretches at 4 weeks. I will follow-up with her shortly after that when she returns here for other appointments. Rehab Potential: Ms. Uribe has excellent potential to achieve established occupational therapy therapy goals within the time frame outlined below, provided she actively participates in her occupational therapy therapy treatment plan and home program. Occupational Profile and History Review Brief Complicating Factors: (Comorbid Conditions/Personal Factors) Comorbid Conditions: Cancer, Neurodegenerative disorder Personal Factors: Balance impairment Performance Deficits 1 - 3 performance deficits Evaluation Complexity Low Barriers to Discharge Functional Goals and Timeframes: Goal #1: Patient will be independent with this effective lymphedema management plan. Goal #1 Date: 02/05/22 Goal #1 Status: Progressing Goal #2: Patient will demonstrate full and symmetric shoulder range of motion to complete activitiesof daily living pain free and in preparation for radiation Goal #2 Date: 02/05/22 Goal #2 Status: Progressing The severity of Ms. Uribe's functional limitation will be re-assessed within the next 6 visits. Plan Ms. Uribe was educated regarding evaluative findings, diagnosis, prognosis, potential risks and benefits of rehabilitation interventions. A collaborative effort was used to establish goals and plan ofcare. She was informed of her right to make decisions regarding her care, including refusal of examination or treatment or selection of therapy services from another provider if desired. The treatment plan may be progressed or modified based upon her response to treatment. Treatment Plan: Start of Plan of Care: 11/25/2021 Number of Visits: up to 6 visits Plan: Continue with current plan Plan Comments: Follow-up in early December removed she returns for other appointments. Assess edema, range of motion and review home exercise program progressing as needed Treatment interventions may include: Therapeutic exercise, Therapeutic functional activity Lymph Recommendations: Oumar wrap from hand to axilla Oumar wrap from hand to axilla Additional Management: Patient to continue with Oumar wrap for 4 weeks day and night. After the 4 weeks she can transition back to her 20-30 mmHg sleeve during the day with a glove Number of Performance Deficits (OT): 1 - 3 performance deficits Evaluation Complexity (OT): Low OT: Time Spent with Patient Therapeutic Interventions Therapeutic Activity (min): 25 min Therapeutic Exercise (min): 15 min Time Tracking Total Timed Units (min): 40 min Total Treatment Time (min): 40 min Jeaneth Llamas O.T., CLT-LANA documented in this encounter Plan of Treatment Not on filedocumented as of this encounter Visit Diagnoses Diagnosis Malignant Neoplasm Of Breast Upper Outer Quadrant Female Left (HCC) Lymphedema Post Mastectomy documented in this encounter
--- OUTSIDE RECORDS SUMMARY | 2022-04-03 11:27 | XMS_ITS | Encounter Summary ---
:1970 Author Organization [facility] Address [address] [place] [address] Care Team Providers Name Role Phone Unavailable Primary Care Provider Unavailable Encounter Details Date Type Department Care Team Description 11/21/2021 Clinical Communication Division of Breast and [place], Jennifer Barcenas, Melanoma Surgical D.O. Oncology in [place] [address] [place], [place] [address] [facility] [address] [place], [place] [phone] (Work) [phone] Social History Tobacco Use Types Packs/Day Years [...] or relatives? How often do you attend protestant or More than 4 times per year 10/31/2021 evangelical services? Do you belong to any clubs or No 10/31/2021 organizations such as protestant groups, unions, fraternal or athletic groups, or [...] place to sleep or slept in a [facility] (including now)? Education Answer Date Recorded What is the highest level of school Bachelor's degree (e.g., BA, AB, 10/31/2021 you have completed or the highest BS) degree you have received? Sex Assigned at Date Recorded Female 10/31/2021 2:05 PM CDT documented as of this encounter Miscellaneous Notes Telephone Encounter - Jennifer Berger D.O. - 11/21/2021 1:55 PM CDT I called and spoke to the patient to share with her the benign findings of her renal ultrasound. Questions were answered to the best my ability. documented in this encounter Plan of Treatment Not on filedocumented as of this encounter Visit Diagnoses Not on filedocumented in this encounter
--- OUTSIDE RECORDS SUMMARY | 2022-04-03 11:27 | XMS_ITS | Encounter Summary ---
:1970 Author Organization [facility] Address [address] [place] [address] Care Team Providers Name Role Phone Unavailable Primary Care Provider Unavailable Encounter Details Date Type Department Care Team Description 12/19/2021 Clinical Communication Department of Physical [place], Medicine and Jeaneth Mayer OJan, Rehabilitation in [place], [place] [address] [facility] [address] [place] [phone] Social History Tobacco Use Types Packs/Day Years [...] or relatives? How often do you attend nondenominational or More than 4 times per year 10/31/2021 islam services? Do you belong to any clubs or No 10/31/2021 organizations such as nondenominational groups, unions, fraternal or athletic groups, or [...] documented as of this encounter Miscellaneous Notes Addendum Note - Julissa Pandya P.A.-C., P.A., M.S. - 12/23/2021 7:34 AM CDT Addended by: JULISSA PANDYA on: 12/23/2021 07:34 AM Modules accepted: Orders Telephone Encounter - Jeaneth Llamas O.T., CLT-LANA - 12/19/2021 10:47 AM CDT The Lymphedema Service is requesting a prescription for a compression garment for cook pickled meat at [facility]. Please write a prescription for: DME breast prosthesis mastectomy bra for bilateral with a quantity of 2 with 3 refills starting 12/19/[address] [facility] in medical justification: Joceline rUibe requires this compression garment due to Lymphedema. This is needed for the left side of the body. Please fax the prescription to the [facility] COMMENTS: No stretch cup ,wide axillary band Amoena marck or similar. Not compression bra documented in this encounter Plan of Treatment Not on filedocumented as of this encounter Visit Diagnoses Diagnosis Lymphedema Post Mastectomy - Primary documented in this encounter
--- OUTSIDE RECORDS SUMMARY | 2022-04-03 11:27 | XMS_ITS | Encounter Summary ---
:1970 Author Organization [facility] Address [address] [place] [address] Care Team Providers Name Role Phone Unavailable Primary Care Provider Unavailable Reason for Referral Outpatient (Routine) - Closed Specialty Diagnoses / Procedures Referred By Contact Refer red To Contact Plastic Surgery Diagnoses Julissa Pandya, [facility] Donell, PMitesh., M.S. [address] [place] [address] Referral ID Status Reason Start Date Expiration Date Visits Requ ested Visits Authorized [id number] Closed 10/25/2021 10/25/2022 1 1 Scheduling Instructions 1-2 weeks with Elizabeth Costa, or Marlen Reason for Visit Outpatient (Routine) - Closed Specialty Diagnoses / Procedures Referred By Contact Refer red To Contact Plastic Surgery Diagnoses Eber Saravia M.D. [facility] [address] [place] [phone] Referral ID Status Reason Start Date Expiration Date Visits Requ ested Visits Authorized [id number] Closed 10/25/2021 10/25/2022 1 1 Encounter Details Date Type Department Care Team Description 11/14/2021 Office Visit Division of Plastic Balekos, Julissa Follo w Up Examination Postoperative Visit (Primary Dx); Surgery in [facility], PHardik, PNeil, Aamir ncounter For Change Or Removal Of Drains [place] M.S. [address] [place] [phone] Social History Tobacco Use Types Packs/Day Years [...] More than 4 times per year 10/31/2021 sabianism services? Do you belong to any clubs [...] place to sleep or slept in a skilled nursing (including now)? Education Answer Date Recorded What is the highest level of school Bachelor's degree (e.g., BA, AB, 10/31/2021 you have completed or the highest BS) degree you have received? Sex Assigned at Date Recorded Female 10/31/2021 2:05 PM CDT documented as of this encounter Progress Notes Julissa Pandya P.A.-C., M.S. - 11/14/2021 1:00 PM CDT SUBJECTIVE CHIEF COMPLAINT / REASON FOR VISIT Service of Dr. Saravia Joceline Uribe is a 51 y.o. female who presents for evaluation of her drain HISTORY OF PRESENT ILLNESS 1. Status post left axillary lymph node dissection with Dr. Berger, and left axillary venous bypass performed by Dr. Saravia, 11/12/2021 Joceline Uribe is a 51 y.o. female who pre sents for evaluation of her drain. She reports that after surgery she had quite a bit of pain and swelling in her hand. She contacted Plastic surgery and was instructed to Re wrap her arm. Now that she has it wrapped more loosely she states that her pain is significantly improved. She currently rates her pain a 1/10 and takes Tylenol for this. She notes that her hand is still swollen, but does not feel that this is worsening. She reports that her pain bulb has not been holding suction. She states that today it has been better than it has the past 2days. She has been getting about 60 cc of output in a 4 hours. She is also wondering if she needs toa compression bra as she was not given 1 after surgery. She is wondering what her activity restrictions are as well. She otherwise has no concerns. REVIEW OF SYSTEMS Pertinent items noted in HPI. OBJECTIVE PHYSICAL EXAMINATION General: Patient is alert and oriented x 3. She does not appear to be in acute distress. Very pleasant. Her accompanies her Left arm: Surgical glue intact. Incision appears clean, dry, and intact. Left arm wrapped with Oumar bandage. Moderate left hand swelling noted. Drain site without signs of infection, drainage is serosanguineous. No erythema, drainage, or dehiscence noted. No obvious signs of infection. Moderate amount of expected swelling. Drain site free of signs of infection. Drain output is serosanguineous. ASSESSMENT / PLAN #1 Status post left axillary lymph node dissection with Dr. Berger, and left axillary venous bypass performed by Dr. Saravia, 11/12/2021 It was a pleasure seeing today in the clinic. I am glad to hear that after rewrapping her arm her pain has significantly improved. We discussed that way she has it wrapped now is enough compression. The hand swelling will slowly improve as she heals. She should continue to keep her arm elevated to help with swelling. She was instructed to continue to wrap her left arm with Oumar wrap in a progressive fashion at all times except when showering for for weeks after surgery or until instructed otherwise. She should not abduct or forward flex her left shoulder more than 60?? until she is 4 weeks from surgery. She should avoid repetitive arm movement, heavy lifting of more than 10 lb, or strenuous activity until she is 4weeks from surgery. We discussed gentle shoulder range of motion and stretching to keep her shoulderloose. She may go for light walks. Her JOSÉ ANTONIO bulb was exchanged for a new bulb in clinic today. New Biopatch disc and Tegaderm was appliedto the drain site. The drain appear to be holding suction in clinic today per she was instructed to continue monitoring this. If the drain continues to lose suction, she will have to keep providing newsuction until the drain meets criteria to be removed. If the drain becomes nonfunctioning, we will need to discuss with Dr. Saravia. She was in agreement with this plan. Patient will return to clinic in 2 weeks for routine postop appointment Patient has all appropriate phone numbers to call in case she has questions or concerns. Photographs obtained with patient's permission. All questions were asked and answered per patient report. It was an absolute pleasure taking care of PATIENT EDUCATION Ready to learn, no apparent learning barriers were identified; learning preferences include listening. Explained diagnosis and treatment plan; patient expressed understanding of the content. documented in this encounter Plan of Treatment Scheduled Referrals Name Type Priority Associated Diagnoses Order [facility] Plastic Surgery Outpatient Referral Routine Expec eduardo: office visit 11/21/2021 (clinic) (Approximate), Expires: 02/14/2023 documented as of this encounter Visit Diagnoses Diagnosis Follow Up Examination Postoperative Visi t - Primary Encounter For Change Or Removal Of Drain s documented in this encounter
--- OUTSIDE RECORDS SUMMARY | 2022-04-03 11:27 | XMS_ITS | Encounter Summary ---
:1970 Author Organization [facility] Address [address] [place] [address] Care Team Providers Name Role Phone Unavailable Primary Care Provider Unavailable Reason for Visit Outpatient (Routine) - Closed Specialty Diagnoses / Procedures Referred By Contact Refer red To Contact General Surgery Diagnoses ov Jennifer Berger D.O. 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 Quadrant Female Left [place] 200 [facility] ([facility]x) [address] [place] [phone] Social History Tobacco Use Types Packs/Day Years [...] or relatives? How often do you attend episcopalian or More than 4 times per year 10/31/2021 amish services? Do you belong to any clubs or No 10/31/2021 organizations such as episcopalian groups, unions, fraJobpartners or athletic groups, or school groups? How [...] documented as of this encounter Progress Notes Elen Augustin APRN, C.N.P., D.N.P. - 11/22/2021 2:00 PM CDT SUBJECTIVE CHIEF COMPLAINT/REASON FOR VISIT Post-Operative Visit Referring provider: Jennifer Berger D.O. HISTORY OF PRESENT ILLNESS Joceline Uribe is a 51 y.o. female seen in postoperative follow-up. The surgery date was November 12, 2021. The operation performed was a left axillary lymph node dissection with lymphovenous bypass. Final pathology revealed multiple (8 of 20) lymph nodes are positive for metastatic mammary ductal carcinoma, including 6 lymph nodes with macrometastasis and 2 lymph nodes with micrometastasis. The largest metastasis measures 6 mm. Extranodal extension is present, 2 mm. Joceline rates left axilla pain at 1/10 on the 0-10 numeric pain scale. The patient has been taking tylenol as needed for surgical site discomfort. She reports she only needed to take one dose of oxycodone. She denies fevers or signs of infection. The patient has been wearing a Ritu bra and DAVE wrap ofher left arm. She has been abiding by her activity and lifting restrictions. Her drain log book was reviewed today. Drain outputs (in cc) for the past two days are as follows: left axilla: 43, 31 OBJECTIVE PHYSICAL EXAM The left axillary incision is clean, dry, intact, and well approximated. The incision is open to air. An DAVE wrap is in place on the patient's left arm. There is no erythema, increased skin warmth, drainage from the incisions, or odor noted. No obvious signs of hematoma, seroma, cellulitis, or necrosis. The left axillary drain has serous output. Biopatch and Tegaderm are intact with no surrounding signs of infection. ASSESSMENT / PLAN Joceline is healing well. We reviewed the final surgical pathology report from her recent surgery with Dr. Berger and after doing so she had no further questions. She is scheduled to meet with Medical Oncology, Radiation Oncology, Physical Medicine & Rehab, and Plastic Surgery. In a couple weeks, she could apply a moisturizer or scar-minimizing agent of her choice to her incisions, and she can massage along her incisions to help break down scar tissue formation and postoperative changes. The left axillary drain was left in place today as it did not meet criteria for removal. Joceline and her family understand she needs to contact her surgical teams when the drain output is 30 cc or less for two consecutive days. At that time, she will receive instruction to remove the drain. Joceline's daughter plans to remove the drain. They have a suture removal kit. I provided them with bacitracin and aprimapore dressing today. Once the drain is removed, Joceline understands that she needs to keep the drain site clean and dry (approximately 48 hours) until fully scabbed over at which time it can be leftopen to air. The patient is aware that activity guidelines, lifting restrictions, and use of compression are advised by her plastic surgery team. We discussed pain management. She may continue to take Tylenol as needed for pain management. Joceline should monitor her incisions, drain sites and operative sites for signs and symptoms concerning for infection or fluid collection.Signs and symptoms of seroma formation were reviewed today. If she would note erythema, increased skin warmth, drainage from her incisions, or odor, a rapid onset of swelling or firmness, note the presence of a potential fluid collection, develop a temperature over 100.4 degrees Fahrenheit, or note any other concerning findings, then she needs to contact Dr. Berger's team. All of her questions were answered to her satisfaction. She will contact us if she has any additional questions or concerns. documented in this encounter Plan of Treatment Not on filedocumented as of this encounter Visit Diagnoses Diagnosis Malignant Neoplasm Of Breast Upper Outer Quadrant Female Left (HCC) - Primary documented in this encounter
--- OUTSIDE RECORDS SUMMARY | 2022-04-03 11:27 | XMS_ITS | Encounter Summary ---
:1970 Author Organization [facility] Address [address] [place] [address] Care Team Providers Name Role Phone Unavailable Primary Care Provider Unavailable Encounter Details Date Type Department Care Team Description 12/02/2021 Clinical Communication Department of Macy Esquivel, Oncology in [place], [place] [address] [facility] [address] [place] [phone] Social History Tobacco Use Types Packs/Day Years [...] More than 4 times per year 10/31/2021 yazidi services? Do you belong to any clubs [...]
--- OUTSIDE RECORDS SUMMARY | 2022-04-03 11:27 | XMS_ITS | Encounter Summary ---
:1970 Author Organization [facility] Address [address] [place] [address] Care Team Providers Name Role Phone Unavailable Primary Care Provider Unavailable Reason for Referral Outpatient (Routine) - Closed Specialty Diagnoses / Procedures Referred By Contact Refer red To Contact Plastic Surgery Diagnoses Julissa Pandya, [facility] Donell, P.A., M.S. [address] [place] [phone] Referral ID Status Reason Start Date Expiration Date Visits Requ ested Visits Authorized [id number] Closed 10/25/2021 10/25/2022 1 1 Scheduling Instructions 2 mo with Marlen on a day that Dr. Nika pittman is in clinic, or Dr. Saravia Reason for Visit Outpatient (Routine) - Closed Specialty Diagnoses / Procedures Referred By Contact Refer red To Contact Plastic Surgery Diagnoses Marlen Ruvalcaba APRN, [place] C.N.PYe, D.N.P. [address] [place] [phone] Referral ID Status Reason Start Date Expiration Date Visits Requ ested Visits Authorized [id number] Closed 10/25/2021 10/25/2022 1 1 Encounter Details Date Type Department Care Team Description 12/19/2021 Office Visit Division of Plastic Julissa Pandya Up Examination Surgery in [place], R, P.A.-C., P.A., P ostoperative Visit David Ledezma (Primary Dx) [address] [place] [phone] Social History Tobacco Use Types Packs/Day Years [...] More than 4 times per year 10/31/2021 hindu services? Do you belong to any clubs [...] this encounter Progress Notes Julissa Pandya P.A.-C., Deja, M.S. - 12/19/2021 7:30 AM CDT SUBJECTIVE CHIEF COMPLAINT / REASON FOR VISIT Service of Dr. Saravia Joceline Uribe is a 51 y.o. female who presents for a routine postop appointment HISTORY OF PRESENT ILLNESS Status post left axillary lymph node dissection with Dr. Berger, and left axillary venous bypass performed by Dr. Saravia, 11/12/2021 Joceline Uribe is a 51 y.o. female who presents for a routine postop appointment. She endorses pain in her thumb, wrist, and elbow. She states it is about 2 to 3/10 and constant. She describes it as a stabbing sensation and notes that it feels like her wrist is broken. She denies any trauma tothe hand. She has had issues with her thumb prior to surgery, especially with her gauntlet compression. She has been wearing her compression sleeve, but stopped the last couple of days because she is going to be seeing OT today and wants them to see how her lymphedema is doing. She denies any worsening swelling. She is working on her range of motion and feels that this is improving. She continues to wear a compression bra for left breast edema. She has no other questions or concerns. REVIEW OF SYSTEMS Pertinent items noted in HPI. OBJECTIVE PHYSICAL EXAMINATION General: Patient is alert and oriented x 3. She does not appear to be in acute distress. Very pleasant. Her accompanies her Left arm: Axillary incisions intact. Moderate amount of edema noted on the left lateral chest. Upperextremity swelling and ecchymosis improved. Mild swelling noted in the hand. Mild tenderness to palpation of tibial prominence. ASSESSMENT / PLAN #1 Status post left axillary lymph node dissection with Dr. Berger, and left axillary venous bypass performed by Dr. Saravia, 11/12/2021 It was a pleasure seeing today in the clinic. She appears to be recovering very nicely. She does still have a moderate amount of edema noted on the left lateral chest. I recommended she continue with compression to help with this. I also recommended she discuss this with OT today to see if there is any additional compression that can be added. We talked about massaging this area, though it is difficult for her to do this as her right arm is her weak side. We discussed that stabbing, burning, tingling, and numbness are all sensations to be expected with the surgery and associated with nerves. These will continue to improve over the next 6 months. However, the pain at the bony prominence is likely not associated with the surgery. I recommended she continue to monitor the pain and follow-up with her primary care provider if it persists or worsens. We discussed that at this time she can increase her activity level and weight restrictions. She can start getting back into normal activity as tolerated. Patient will return to clinic in [address] Saravia or RUKHSANA on a day that Dr. Saravia is in clinic. Patient has all appropriate phone numbers to call in case she has questions or concerns. Photographs obtained with patient's permission. All questions were asked and answered per patient report. It was an absolute pleasure taking care of PATIENT EDUCATION Ready to learn, no apparent learning barriers were identified; learning preferences include listening. Explained diagnosis and treatment plan; patient expressed understanding of the content. #1 Follow Up Examination Postoperative Visit documented in this encounter Plan of Treatment Scheduled Referrals Name Type Priority Associated Diagnoses Order S chedule Plastic Surgery Outpatient Referral Routine Expec eduardo: office visit 02/19/2022 (clinic) (Approximate), Expires: 03/21/2023 documented as of this encounter Visit Diagnoses Diagnosis Follow Up Examination Postoperative Visi t - Primary documented in this encounter
--- OUTSIDE RECORDS SUMMARY | 2022-04-03 11:27 | XMS_ITS | Encounter Summary ---
:1970 Author Organization [facility] Address [address] [place] [address] Care Team Providers Name Role Phone Unavailable Primary Care Provider Unavailable Reason for Visit Radiation Therapy (Routine) - Closed Specialty Diagnoses / Procedures Referred By Contact Refer red To Contact Diagnoses Malignant Neoplasm Of Breast Upper Outer Quadrant Female Left (HCC) Fritz Smith M.D. [facility] Procedures Prior Auth Rad Tx [place] IMRT SIMPLE [address] [place], [place] [phone] Referral ID Status Reason Start Date Expiration Date Visits Requ ested Visits Authorized [id number] Closed 10/25/2021 10/25/2022 25 25 Encounter Details Date Type Department Care Team Description 12/31/2021 Hospital Encounter Department of Radiation Jared Smith, Oncology in [place] [address] [facility] [address] [place] [phone] Social History Tobacco Use Types Packs/Day Years [...] or relatives? How often do you attend rastafarian or More than 4 times per year 10/31/2021 cheondoism services? Do you belong to any clubs or No 10/31/2021 organizations such as rastafarian groups, unions, fraNOMAD GOODS or athletic groups, or school groups? How [...]
--- OUTSIDE RECORDS SUMMARY | 2022-04-03 11:27 | XMS_ITS | Encounter Summary ---
:1970 Author Organization [facility] Address [address] [place] [address] Care Team Providers Name Role Phone Unavailable Primary Care Provider Unavailable Reason for Visit Occupational Therapy (Routine) - Authorized Specialty Diagnoses / Procedures Referred By Contact Refer red To Contact Diagnoses Lymphedema Post Mastectomy Eber Saravia M.D. [facility] Procedures OT Ongoing Treatment [address] [place] [phone] Referral ID Status Reason Start Date Expiration Date Visits V isits Requested Authorized [id number] Authorized 10/25/2021 10/25/2022 6 6 Encounter Details Date Type Department Care Team Description 12/19/2021 Clinical Support Department of Physical Eber Decker M.D. 200 [place] [phone] Lymphedema Post Medicine and Jeaneth Llamas O.T., CLT-KATHY 200 [place] [phone] Mastectomy Rehabilitation in [place], [place] [address] [place] [phone] Social History Tobacco Use Types Packs/Day [...] or relatives? How often do you attend religion or More than 4 times per year 10/31/2021 hoahaoism services? Do you belong to any clubs or No 10/31/2021 organizations such as religion groups, unions, fraternal or athletic groups, or [...] Progress Notes Jeaneth Llamas, O.T., CLT-KATHY - 12/19/2021 10:00 AM CDT Occupational Therapy Cancer Rehabilitation/ Lymphedema Outpatient [...] patient had a level 1 to level II left axillary lymph node dissection as well as an LV bypass left axilla. Onset Date: 11/07/21 Payor: [employer]UE [employer] BLUE [employer] / Plan: [employer] / Product Type: HMO / SUBJECTIVE Patient and reports they'e 30 minutes late for appointment as they were speaking with Radiology about the plan of care. Patient states if she is going to have photon radiation that she will go to [place] versus coming down here to [place] as it is closer. Patient reports she has not worn her sleeve over the last couple a days to left upper extremity. Shewanted to assess her baseline without compression. Total Visit Count: 2 OBJECTIVE Bio impedance: 11/25/2021: 12.1, 12/19/21: 16.1 Left breast: Lateral left breast with noted fullness. Palpable edema within scar tissue of left axillary lymph node dissection scar. She is tender with palpation as well. No peau de orange. Left shoulder range of motion within normal limits. Limited time for full assessment with goniometersecondary to patient being late to appointment. Left Upper Extremity Evaluation 12/19/2021 10 cm 17.5 17.5 20 cm 15.9 15.9 30 cm 23.4 23.4 40 cm 26.3 26.3 50 cm 31 31 60 cm 31.5 31.5 Lymph Volume (L) 2456.8 ml Change in Volume (ml) 241.22 ml Change from initial Edema % 10.89 % Treatment: Reviewed results of bio impedance with patient and spouse. Since she has an increase in her bio impedance by 4 point suggested she wear her sleeve daily. For the left axillary edema I suggested she be fit in a well-fitting bra with a no stretch cup and a wide axillary band. I provided her with a pad to place under lateral strap of bra for localize compression. I did briefly review with her she could try a simple massage to the scar tissue area but ideally edema would be managed with compression. Instructed patient to continue with overhead stretches into flexion, external rotation and abduction. She is slightly tight in her pectoralis major therefore I showed her how to perform a side-lying stretch move shoulder in abduction beyond neutral. Instructed patient to perform the stretch all through radiation and after radiation. 3-5 repetitions holding at least 30 seconds. Plan to follow-up with patient after she is fit with the new bra to assess axillary edema, arm edema. Patient had lymphedema prior to recent node dissection therefore long-term she may need to continuewith compression. Home Exercise Program/Education: [id number]: Pectoral Stretches after Breast Surgery Contact monitoring: PPE used during therapy: Therapist was wearing the following PPE throughout entire session: surgicalmask and eye protection Patient was wearing a mask during therapy session: yes Family member/caregiver present was wearing a mask: yes Assessment Pleasant 51-year-old woman who is status post LVA after undergoing axillary lymph node dissection. Prior to procedure patient did have left upper extremity lymphedema. She continues to have very mild lymphedema today in left upper extremity. She also has mild edema lateral to the left breast in axilla. Initiated home compression program to chest wall and instructed patient to continue to wear sleeve during the day. She has excellent left shoulder range of motion. Follow-up in 2-3 weeks. Functional Goals and Timeframes: Goal #1: Patient [...] Therapeutic Interventions Therapeutic Activity (min): 25 min Time Tracking Total Timed Units (min): 25 min Total Treatment Time (min): 25 min Jeaneth Llamas O.T., CLT-LANA documented in this encounter Plan of Treatment Not on filedocumented as of this encounter Visit Diagnoses Diagnosis Lymphedema Post Mastectomy documented in this encounter
--- OUTSIDE RECORDS SUMMARY | 2022-04-03 11:27 | XMS_ITS | Encounter Summary ---
:1970 Author Organization [facility] Address [address] [place] [address] Care Team Providers Name Role Phone Unavailable Primary Care Provider Unavailable Encounter Details Date Type Department Care Team Description 12/02/2021 Clinical Communication Division of Plastic [facility] [place] [address] [facility] [address] [place] [phone] Social History Tobacco Use Types Packs/Day Years [...] this encounter Miscellaneous Notes Telephone Encounter - Juliet Blanco R.N. - 12/02/2021 4:07 PM CDT SUBJECTIVE CHIEF COMPLAINT / REASON FOR CALL No chief complaint on file. ASSESSMENT Joceline calls today to report swelling and pain in her left axilla and towards the trunk. She reports that this started last night and became a little more painful today as the day wore on. Of note she reports that she switched out of the compression bra she was wearing and in two sports bra that offersless compression. Additionally yesterday she stumbled and instinctively lifted her left arm to catchherself. She has not taken anything for the pain. PLAN Advised Joceline the to send us some photos of this area so we can compare them to what we have on file. Recommended she take it easy, switch back in to the compression bra she was discharged from the hospital with, and to take Tylenol for the pain. She asked if she could ice the area and moves I told her she could provided she insulated the ice with a dish towel or hand towel so the ice isn't directly against her skin. Disposition/Recommendation: recommended continue engagement in self-management activities and I willwait for her portal message. I will review this with the team tomorrow and get back to her by phone. Information/Education: patient/caller able to teach back. Caller agreeable to plan of care: yes. The following references were used: nursing clinical judgement. documented in this encounter Plan of Treatment Not on filedocumented as of this encounter Visit Diagnoses Not on filedocumented in this encounter
--- OUTSIDE RECORDS SUMMARY | 2022-04-03 11:27 | XMS_ITS | Encounter Summary ---
:1970 Author Organization [facility] Address [address] [place] [address] Care Team Providers Name Role Phone Unavailable Primary Care Provider Unavailable Encounter Details Date Type Department Care Team Description 11/14/2021 Orders Only Division of Breast and Elen Augustin, Malignant Neoplasm Of Melanoma Surgical ARSON INVESTIGATOR, C.N.P., Breast Fe male Left Oncology in [place], D.N.P. (HCC) (Primary Dx) [place] [address] [address] [facility] [address] [place] [phone] Social History Tobacco Use Types Packs/Day Years [...] More than 4 times per year 10/31/2021 spiritism services? Do you belong to any clubs [...] Visit Diagnoses Diagnosis Malignant Neoplasm Of Breast Female Left (HCC) - Primary documented in this encounter
--- OUTSIDE RECORDS SUMMARY | 2022-04-03 11:27 | XMS_ITS | Encounter Summary ---
:1970 Author Organization [facility] Address [address] [place] [address] Care Team Providers Name Role Phone Unavailable Primary Care Provider Unavailable Reason for Visit Radiation Therapy (Routine) - Closed Specialty Diagnoses / Procedures Referred By Contact Refer red To Contact Diagnoses Malignant Neoplasm Of Breast Upper Outer Quadrant Female Left (HCC) Fritz Smith M.D. [facility] Procedures Prior Auth Rad Tx [place] IMRT SIMPLE [address] [place], [place] [phone] Referral ID Status Reason Start Date Expiration Date Visits Requ ested Visits Authorized [id number] Closed 10/25/2021 10/25/2022 25 25 Encounter Details Date Type Department Care Team Description 12/30/2021 Hospital Encounter Department of Radiation Jared Smith, [place] [address] [facility] [address] [place] [phone] Social History Tobacco Use Types Packs/Day Years [...] organizations such as oriental orthodox groups, unions, fraRedline Trading Solutions or athletic groups, or school groups? How [...]
--- OUTSIDE RECORDS SUMMARY | 2022-04-03 11:27 | XMS_ITS | Encounter Summary ---
:1970 Author Organization [facility] Address [address] [place] [address] Care Team Providers Name Role Phone Unavailable Primary Care Provider Unavailable Encounter Details Date Type Department Care Team Description 12/19/2021 Ancillary Procedure Department of Plastic and Reconstructive [...] or relatives? How often do you attend samaritan or More than 4 times per year 10/31/2021 church services? Do you belong to any clubs or No 10/31/2021 organizations such as samaritan groups, unions, fraternal or athletic groups, or [...] Diagnosis Comme nts PLASTIC AND RECON Routine 12/19/2021 12:00 AM Res ults for this SURGERY IMAGE EXAM CDT procedure are in the results section. documented in this encounter Results Arms Lymphaticovenous Bypass-Plastic And Recon Surgery Image Exam (12/19/2021 12:00 AM CDT) Specimen (Source) Anatomical Location Collection Method / Collectio n Time Received Time / Laterality Volume Narrative IIMS - 12/19/2021 9:55 AM CDT This order has been created and [...]
--- OUTSIDE RECORDS SUMMARY | 2022-04-03 11:28 | XMS_ITS | Encounter Summary ---
:1970 Author Organization [facility] Address [address] [place] [address] Care Team Providers Name Role Phone Unavailable Primary Care Provider Unavailable Reason for Visit Outpatient (Routine) - Closed Specialty Diagnoses / Procedures Referred By Contact Refer red To Contact Plastic Surgery Diagnoses Malignant Neoplasm Of Breast Upper Outer Quadrant Female Left (HCC) Jennifer Berger D.O. [facility] [address] [place] [address] Referral ID Status Reason Start Date Expiration Date Visits Requ ested Visits Authorized [id number] Closed 11/11/2021 10/25/2022 1 1 Encounter Details Date Type Department Care Team Description 11/11/2021 Comprehensive Visit Division of Plastic Arline Saraviaant Neoplasm Surgery in [place] [place], [place] [address] [facility] Outer Quadrant [address] [place], [place] Female Left (HCC) [place] [id number] [phone] Social History Tobacco Use Types Packs/Day Years Used Date Smoking Tobacco: Never Smokeless Tobacco: Never Alcohol Habits Answer Date Recorded How often [...] More than 4 times per year 10/31/2021 sikhism services? Do you belong to any clubs or No 10/31/2021 organizations such as worship groups, unions, fraternal or athletic groups, or [...] documented as of this encounter Consult Notes Marcus Watson M.D. - 11/11/2021 9:00 AM CDT PLASTIC SURGERY CONSULT NOTE SUBJECTIVE CHIEF COMPLAINT / REASON FOR VISIT Joceline Uribe is a 51 y.o. female who presents for consultation on lymphovenous bypass at the time of axillary lymph node dissection. HISTORY OF PRESENT ILLNESS 51-year-old female from [place], [place] with history of cervical spinal injury which impacts her ambulation and right upper extremity range of motion, hypothyroidism, and left breast cancer diagnosed inOc2020, s/p lumpectomy on 04/25/21 with positive sentinel lymph node biopsy, s/p adjuvant chemowhich had to be discontinued early secondary to severe neuropathic side effects. There is a plan forleft breast radiation in the left axillary lymph node and section with Dr. Berger tomorrow 11/12/21. We are consulted to assist with lymphovenous bypass at the time of axillary lymph node dissection. She is seen today in clinic with her Krunal. No diabetes, problems with the heart/lungs, non-smoker. Not on any anticoagulation. No h/o keloid/hypertrophic scarring, no h/o PE/DVT or bleeding issues. She does note that she has always bruised easily. Patient states that since May she has had some swelling and heaviness of the LUE. She has been seeing OT about this since that time. She has been wearing a sleeve for this since September. Her sleeve is a 15-20mmHg sleeve. She wears the sleeve all day from 7am to 10pm. At night, she keeps a pillow underthe forearm, but any higher elevation of the upper extremity is very uncomfortable for her. She feels that the swelling has been staying approximately the same. She has also been noting some aching pain in the armpit on the left present at baseline and not aggravated by movement. If anything, stretching seems to make this better. Past Medical History Past Medical History: Diagnosis Date ??? Glaucoma ??? Hypothyroidism ??? Injury Spinal Cord Cervical Initial (HCC) ??? Malignant Neoplasm Of Breast Upper Outer Quadrant Female Left (HCC) ??? Meniere's Disease Bilateral Past Surgical History Past Surgical History: Procedure Laterality Date ??? CERVICAL FUSION ??? HYSTERECTOMY ??? LUMPECTOMY BREAST WITH SENTINEL NODE BIOPSY Left 04/25/2021 ??? OTHER lymphatic sac surgery for Meniere's ??? TONSILLECTOMY Medications Scheduled Meds: Continuous Infusions:No current facility-administered medications for this visit. Allergies Allergies Allergen Reactions ??? Vancomycin Other (see comments) and Rash Suspected drug rash to vancomycin, not certain ??? Adhesive Tape-Silicones Rash From EKG patches, Dermatitis/Rash ??? Amoxicillin Hives and Shortness of breath ??? Ciprofloxacin Rash and Shortness of breath ??? Sulfa (Sulfonamide Antibiotics) Hives Review of Systems Per the HPI, otherwise review of systems negative. Social History Never smoker Family History Family History Problem Relation Age of Onset [...] ??? Skin cancer Brother ??? Obesity Brother OBJECTIVE PHYSICAL EXAM GENERAL: Awake, alert, oriented, comfortable. RESP: No respiratory distress. LUE: very mild swelling of the extremity from the dorsum of the hand up through the arm compared to the RUE. No pitting. Skin is soft and there are no hypertrophic skin changes. ASSESSMENT / PLAN #hypothyroidism #left breast cancer s/p chemotherapy #plan for left ALND and radiation We discussed the process of lymphovenous bypass that we will perform immediately after her axillary lymph node dissection so as to give her the best possible chance at preventing further progression oflymphedema in the LUE. We reviewed that after ALND, approximately up to 50% of patients can develop lymphedema. She will meet with our PMR colleagues here at [facility]. We reviewed the pathogenesis of lymphedema in detail including the disruption of lymphatic pathways and subsequent fluid accumulation withresulting swelling and possible fatty hypertrophy, fibrosis, and skin changes. We reviewed both non surgical treatments including compression, and we discussed the process of LVB including injection ofdye for lymphatic mapping with ICG lymphography, and anastomosis of lymphatics to local veins for direct drainage into the venous system. Plan of care was discussed with the patient and all questions and concerns were answered to their satisfaction. In summary, at the time of her left ALND, we will plan on left axillary lymphovenous bypass. This patient was seen and examined with Dr. Saravia who is in agreement with the above assessment plan. Associated attestation - Eber Saravia M.D. - 11/12/2021 8:21 AM CDT I saw and evaluated the patient, participating in the light portions of the service. I reviewed the resident/fellow???s note. I agree with the resident/fellow???s findings and plan. Pathogenesis of lymphedema and the natural history of the disease were discussed. The treatment options, including both surgical and non-surgical, were thoroughly explained. Various surgical treatment options including prophylactic supermicrosurgical lymphaticovenular anastomosis (LVA), standard therapeutic LVA, vascularized lymph vessel transplant (VLVT), vascularized lymph node transplant (VLNT), minimally invasive tissue excision with skin excision (MITESE), and radical excision were described. The success/failure rates associated with each procedure, potential complications, and immediate/long-term outcomes were discussed. The rationale in surgical decision making on when to perform which procedure was explained. Diagnostic indocyanine green lymphography recommended for diagnosis, severity staging, and treatmentplanning purposes. She is a candidate for immediate lymphatic reconstruction. This visit lasted for more than 40 min and greater than 50% of the visit was involved in the discussion of the options for treatment. Eber Saravia M.D. documented in this encounter Plan of Treatment Not on filedocumented as of this encounter Visit Diagnoses Diagnosis Malignant Neoplasm Of Breast Upper Outer Quadrant Female Left (HCC) documented in this encounter
--- OUTSIDE RECORDS SUMMARY | 2022-04-03 11:28 | XMS_ITS | Encounter Summary ---
:1970 Author Organization [facility] Address [address] [place] [address] Care Team Providers Name Role Phone Unavailable Primary Care Provider Unavailable Reason for Referral Physical Therapy (Routine) - Closed Specialty Diagnoses / Procedures Referred By Contact Refer red To Contact Diagnoses Malignant Neoplasm Of Breast Upper Outer Quadrant Female Left (HCC) Lymphedema Post Mastectomy Eber Saravia M.D. [facility] Procedures PT or OT eval and treat (first available) [address] [place] [phone] Referral ID Status Reason Start Date Expiration Date Visits Requ ested Visits Authorized [id number] Closed 10/25/2021 10/25/2022 1 1 Encounter Details Date Type Department Care Team Description 11/11/2021 Orders Only Division of Plastic Juliet Blanco Ma lignant Neoplasm Of Breast Upper Outer Quadrant Female Left (HCC) (Primary Dx); Surgery in [facility] Lymphedema Post Mastectomy [place] [address] [facility] [address] [place] [phone] Social History Tobacco Use Types Packs/Day Years [...] Outer Quadrant Female Left (HCC) - Primary Lymphedema Post Mastectomy documented in this encounter Additional Health Concerns Infection Onset Date Last Indicated Resolved Time COVID19 Pending 11/11/2021 11/11/2021 11/11/2021 7:28 PM CDT documented as of this encounter
--- OUTSIDE RECORDS SUMMARY | 2022-04-03 11:28 | XMS_ITS | Encounter Summary ---
:1970 Author Organization [facility] Address [address] [place] [address] Care Team Providers Name Role Phone Unavailable Primary Care Provider Unavailable Encounter Details Date Type Department Care Team Description 11/08/2021 Clinical Communication Division of Breast and Demetria, Elen Shah, Melanoma Surgical COMPUTER PROCESSING SCHEDULER, C.N.P., Oncology in [facility] D.N.. [place] [address] [facility] [address] [place] [phone] Social History Tobacco Use Types Packs/Day Years [...] More than 4 times per year 10/31/2021 buddhism services? Do you belong to any clubs or No 10/31/2021 organizations such as orthodox groups, unions, fraternal or athletic groups, or [...] this encounter Miscellaneous Notes Telephone Encounter - Elen Augustin APRN, C.N.P., D.N.P. - 11/08/2021 9:33 AM CDT I called Joceline to discuss her MRI results. No findings of malignancy within the right breast and no right axillary lymphadenopathy. In the left breast, postoperative changes were seen in the outer posterior left breast but no residual or suspicious enhancement surrounding the lumpectomy cavity. Specifi cassandra, the possible satellite lesion described on the preoperative MRI is no longer visualized. In the left axilla, there was a single mildly enlarged level I axillary lymph node in the high axilla. Other lymph nodes have decreased in size and are now normal by MRI criteria. No internal mammary lymphadenopathy. A left renal cyst was seen. There was an additional indeterminate right renal lesion is not definitely a simple cyst and may represent a hemorrhagic cyst. We discussed that renal ultrasound is recommended for further evaluation. We will plan to have the renal ultrasound completed on Thursday when she ishere for her appointment with Dr. Berger. The patient understands this information and was appreciative of the call. All questions were answered. documented in this encounter Plan of Treatment Not on filedocumented as of this encounter Visit Diagnoses Not on filedocumented in this encounter
--- OUTSIDE RECORDS SUMMARY | 2022-04-03 11:28 | XMS_ITS | Encounter Summary ---
:[address] 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 [address] [place] [id number] Referral ID Status Reason Start Date Expiration Date Visits V isits Requested Authorized [id number] Authorized 10/28/2021 10/25/2022 1 1 Encounter Details Date Type Department Care Team Description 11/11/2021 Comprehensive Visit Division of Breast Jennifer Berger Ma lignant Neoplasm Of Breast Female Left (HCC); and Melanoma A, D.O. 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 Do you belong to any clubs or No 10/31/2021 organizations such as cheondoism groups, unions, fraDeltek or athletic groups, or school groups? How [...] documented as of this encounter Consult Notes Samantha Broussard M.B.B.Ric., M.S. - 11/11/2021 9:30 AM CDT Images from the original note were not included. SUBJECTIVE REASON FOR CONSULT Breast Carcinoma Source of consultation: Debbie Johansen APRN, C.N.P., M.S. HISTORY OF PRESENT ILLNESS Joceline Uribe is a 51 y.o. female seen for surgical consultation regarding her breast carcinoma diagnosis. In February 2021, she presented to her local provider with left breast dimpling. She underwent a bilateral diagnostic mammogram and left breast ultrasound 03/15/2021, which showed anew mass with distortion and spiculated borders measuring 1.7 cm, at the site of palpable concern located at the left axillary tail. No suspicious mass, distortion, or suspicious calcifications in the right breast. Targeteddiagnostic left breast ultrasound demonstrated a palpable lump at approximately the 2 o'clock position, 11 cm from the nipple, showed a suspicious solid, hypoechoic mass with irregular, spiculated borders, measuring up to 2.2 cm. Subsequent ultrasound of the left axilla demonstrated a suspicious round, hypoechoic structure, suspicious for an abnormal lymph node measuring 1.0 cm. US guided left breastand axilla biopsy was performed on 03/19/2021. The left breast pathology revealed invasive ductal carcinoma, grade 2, suspicious for angiolymphatic invasion, ER positive 96%, ID positive 76%, HER2 negative by FISH. Pathology from the left axilla biopsy was negative. She subsequently underwent a breast MRI on 03/25/2021. In the left breast, at approximately the 2 o'clock position, posterior depth, 12 cmfrom the nipple, there was an irregular mass with irregular margins measuring 2.3 x 2.4 x 2.6 cm. Inthe right breast, there was an oval mass measuring 1.4 x 0.7 cm, stable compared to prior MRI, consistent with a benign fibroadenoma. There were borderline prominent and rounded left axillary lymph nodes. The patient underwent genetic testing which did not reveal any genetic mutations. On 04/25/2021, the patient underwent a left breast lumpectomy and left axillary sentinel lymph node biopsy performed by Dr. Katherine Hawthorne. Pathology revealed invasive ductal carcinoma, grade 3, 2.2 cm in greatest dimension, ER positive 96%, ID positive 76%, HER2 negative by FISH. DCIS, grade 3 was alsofound. Margins were close, and she underwent margin re-excision with final margins negative (3 mm from the inferior margin, and DCIS was 5 mm from the inferior margin). Left breast sentinel lymph node biopsy showed metastatic carcinoma in 5/6 lymph nodes with the largest deposit being 1.1 cm in greatest dimension. There was 3 mm extranodal extension. She underwent a CT scan of the chest, abdomen and pelvis on 05/15/2021, which showed postsurgical changes from the recent left lumpectomy and left sentinel node evaluation with likely postoperative seroma in the left axilla measuring 4.9 cm. Indeterminate solitary pulmonary nodule in the left lower lobe, noncalcified, measuring 3.3 mm. Mildly prominent, indeterminate right axillary lymph nodes. No findings of metastatic disease in the abdomen or pelvis. No focal liver lesions or lymphadenopathy. No suspicious bony metastases in the chest, abdomen, or pelvis. US of the right axilla on 05/23/2021 showed several prominent axillary lymph nodes. US biopsy of the right axilla (06/05/2021) revealed reactivefollicular lymphoid hyperplasia, negative for metastatic carcinoma or lymphoma in the sampling. She subsequently underwent chemotherapy with Adriamycin and Cytoxan for 4 cycles, and Paclitaxel x7 out of the planned 12 weekly doses, discontinued due to worsening neuropathy. Last dose of chemotherapy was on 09/27/2021. PET/CT scan on 06/18/2021 showed a decreased residual postop left breast seroma. No suspicious lumpectomy site uptake. Multiple avid left axillary lymph nodes were highly suspicious for metastatic gisell disease. A repeat PET/CT scan on 10/08/2021 showed resolution of left axillary adenopathy. She was presented at our E-Tumor board on 11/05/2021, where recommendations were made to proceed withleft axillary lymph node dissection and radiation. She met with Elen Augustin, SHAKE MAKER, E[employer]ERCE ANALYST, DNP, on 11/07/2021 to discuss the tumor board recommendations. She has since undergone an MRI on 11/07/2021, which showed an oval fibroadenoma in the right breast with no MRI findings of malignancy in the right breast and no right axillary lymphadenopathy. In the left breast, there were postoperative changes in the outer posterior left breast. No residual or suspicious enhancement surrounding the lumpectomy cavity. Specifically, the possible satellite lesion described on the preoperative MRI is no longer visualized. Stable 0.4 cm benign focus of enhancement in the upper inner breast, middle depth. A single mildly enlarged level I axillary lymph node in the highaxilla was seen. Other lymph nodes have decreased in size and are now normal by MRI criteria. No internal mammary lymphadenopathy. PMH: glaucoma, hypothyroidism, spinal cord injury, Meniere???s disease PSH: L lumpectomy and SLNB 04/25/2021, cervical fusion, hysterectomy, lymphatic sac surgery for Meniere???s, tonsillectomy Meds: baclofen, cetirizine, famotidine, levothyroxine, tamoxifen Allergies: vancomycin, adhesive tape, amoxicillin, ciprofloxacin, sulfa The initial presentation was a patient-detected palpable mass. Her symptoms include skin changes. Breast-Relevant Surgical History Procedure Laterality Date Comment Source HYSTERECTOMY LUMPECTOMY BREAST WITH SENTINEL NODE BIOPSY Left 04/25/2021 Breast-Relevant Family History Problem Relation Age of Onset Comments Breast cancer Mother Double mastectomy, liver cancer 3 years later Breast cancer Sister Lumpectomy, 18 year survivor Genetic counseling/testing of breast cancer was not addressed today The following portions of the patient's history were reviewed: allergies, medical history, current medications, social history, problem list, family history and surgical history REVIEW OF SYSTEMS Genitourinary: Positive for difficulty urinating, urgency and frequent urination. Hematologic: Positive for bruises or bleeds easily. Musculoskeletal: Positive for pain or stiffness in the joints and back pain. Neurological: Positive for numbness or shooting pain in hands, arms, legs, or feet, loss of balance or tendency to fall easily and weakness in arms or legs. Psychiatric/Behavioral: Positive for change in sexual drive (decreased libido) and excessive daytimesleepiness/tiredness. The following systems were negative: Constitutional, Skin, Eyes, ENT, Respiratory, Cardiovascular, Gastrointestinal OBJECTIVE PHYSICAL EXAM Breast Right breast exhibits no inverted nipple, no skin change, no mass, no tenderness and no nipple discharge. Left breast exhibits no inverted nipple, no skin change, no mass, no nipple discharge and no tenderness. Right lymph nodes: no axillary adenopathy and no supraclavicular adenopathy Left lymph nodes: axillary adenopathy Left lymph nodes: no supraclavicular adenopathy ASSESSMENT / PLAN Discussion/Plan: We discussed performing a complete axillary lymph node dissection (ALND) and what this involves in detail. Regarding her lymph nodes, we will plan to perform axillary lymph node dissection. We discussed this planned operation in detail including risks, benefits, and alternatives. She expressed understanding, that her questions had been answered to her satisfaction, and that she gives herconsent to proceed. We will assure appropriate preoperative evaluation, arrange surgical scheduling,and pre- operative instructions were given. We again discussed with Joceline the recommendations of our E tumor board. The consensu was for the patient to proceed with a left axillary lymph node dissection given she had 5/6 positive sentinel lymph nodes at the time of surgery and PET avidity of the left axilla following surgery. We discussed that axillary lymph node dissection in detail. This involves removing levels 1 and 2 of the lymph nodes inthe left axilla. The procedure increases her risk of lymphedema by about 20-25%, and radiation can make that risk higher. The patient reports she already has some minor lymphedema, and we have consulted the lymphedema clinic for her to see postoperatively ([facility] Re[facility]). ?? We discussed various aspects of surgical care. Joceline understands she will have a drain following theleft axillary lymph node dissection. She understands her surgery will be an outpatient procedure. She understands she will meet back with the surgery teams approximately 1-2 weeks after surgery for a postoperative visit. She asked us to see if we can move her postoperative appointment to November 21, as she has a renal US on that day. We discussed pathology, which will result within a few business days of operation. We discussed use of frozen pathology, which is not indicated for ALND. ?? We also discussed with the patient that given her current minor lymphedema. She has met Dr. Saravia in Plastic Surgery to discuss potential lymphovenous bypass at the time of her left axillary dissection. She has no further questions regarding LVBP. We discussed postoperative pain control, including use of Exparel, regular Tylenol. She does not tolerated NSAIDs. She would prefer to minimize narcotic use. We also talked about her allergies to adhesives. She is ok with Steristrips and able to tolerate Tegaderm. ?? We will proceed with a left ALND tomorrow with possible lymphovenous bypass by Dr. Saravia tomorrow 11/12/2021. Associated attestation - Jennifer Berger D.O. - 11/11/2021 1:10 PM CDT I saw and evaluated the patient, participating in the light portions of the service. I reviewed the resident/fellow???s note. I agree with the resident/fellow???s findings and plan. Patient is a very pleasant 51-year-old female seen for evaluation in the company of her . Thedetails of her index presentation and workup are carefully outlined in the detailed note below. In summary, she had an area of left breast dimpling in February 2021 and underwent breast imaging for workup. She was found to have a left breast invasive ductal carcinoma grade 2 suspicious for angiolymphatic invasion, ER positive 96%, ID positive 76%, HER2 negative by fish with a ratio of 1.05, Ki 67 14%.There was a suspicious left axillary lymph node which underwent biopsy and was negative. Breast MRI showed a mass measuring 2.6 cm at the 2 o'clock position 12 cm from the nipple. Of note, there is a fi broadenoma within the right breast (contralateral). Genetic testing was negative for any pathogenic variants. Left breast lumpectomy and sentinel lymph node biopsy was performed at an outside institution. Pathology from surgery identified a left breast invasive ductal carcinoma measuring 2.2 cm grade 3 ER positive 96% ID positive 76% her2 negative as above. Angiolymphatic invasion was noted in the tumor and on sentinel lymph node biopsy 5 of 6 sentinel lymph nodes were involved by metastatic carcinoma with the largest metastasis measuring 1.1 cm with associated extranodal extension measuring 3 mm. The patient was subsequently initiated on systemic chemotherapy in the form of AC followed by T and the Taxol had to be discontinued early due to significant neuropathy. (7 of 12 doses delivered). Last dose of chemotherapy was on 09/27/2021. PET/CT scan on 06/18/2021 showed a decreased residual postop left breast seroma. No suspicious lumpectomy site uptake. Multiple avid left axillary lymph nodes were highly suspicious for metastatic gisell disease. A repeat PET/CT scan on 10/08/2021 showed resolution of left axillary adenopathy after completion of chemotherapy. She was presented at our E-Tumor board on 11/05/2021, where recommendations were made to proceed with left axillary lymph node dissection and radiation. She met with Elen Augustin, SHAKE MAKER, ECOMMER[employer] ANALYST, DNP, on 11/07/2021 to discuss the tumor board recommendations. She has since undergone an MRI on 11/07/2021, which showed an oval fibroadenoma in the right breast with no MRI findings of malignancy in the right breast and no right axillary lymphadenopathy. In the left breast, there were postoperative changes in the outer posterior left breast. No residual or suspicious enhancement surrounding the lumpectomy cavity. Specifically, the possible satellite lesion described on the preoperative MRI is no longer visualized. Stable 0.4 cm benign focus of enhancement in the upper inner breast, middle depth. A single mildly enlarged level I axillary lymph node in the highaxilla was seen. Other lymph nodes have decreased in size and are now normal by MRI criteria. No internal mammary lymphadenopathy. Patient has a history of cervical fusion as well as spinal cord injury and Meniere???s disease. She ambulates with crutch assistance. On physical examination, there is no cervical, supraclavicular, infraclavicular, axillary adenopathybilaterally. Bilateral nipples are everted. There is no palpable dominant mass in either breast. There is a well-healed incision in the left upper outer quadrant from the lumpectomy with a firm scarring centrally. There is a well-healed left axillary incision without any concerning matted or palpable lymph nodes. No nipple discharge bilaterally. Left breast T2N2a invasive ductal carcinoma luminal B subtype status post lumpectomy with sentinel lymph node biopsy and adjuvant chemotherapy The results of tumor board discussion were again communicated to the patient. We discussed that standard of care recommendation would include axillary lymph node dissection of the left axilla. Certainly, one could argue to proceed with radiation therapy and not return to the operating room for furthersurgery, but in light of the patient's PET-CT findings with multiple abnormal lymph nodes prior to treatment and post treatment MRI showing residual abnormal lymph node, I would recommend proceeding with completion axillary lymph node dissection. We discussed the pros and cons of this approach. We discussed the potential risks of surgery. We also discussed the option for possible lymphovenous bypass.She met with our plastic surgery colleagues today to discuss lymphovenous bypass. The indications, risks, benefits and alternatives were discussed in detail with Joceline Uribe. Potential complications related to the axillary surgery were discussed including but not limited to anesthesia, bleeding, infection, seroma formation, arm lymphedema, and numbness of the upper inneraspect of the ipsilateral arm as well as the possible need to return to the operating room for control of complications. All questions were answered to the patient???s apparent satisfaction. I personally spent over half of a total of 45 minutes face to face with the patient in counselling and discussion and/or coordination of care, as described above. Preoperative teaching was performed with the assistance of Rubén Leiva RN. 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
--- OUTSIDE RECORDS SUMMARY | 2022-04-03 11:28 | XMS_ITS | Encounter Summary ---
:1970 Author Organization [facility] Address [address] [place] [address] Care Team Providers Name Role Phone Unavailable Primary Care Provider Unavailable Encounter Details Date Type Department Care Team Description 11/13/2021 Documentation Department of Patient Raymond Pickett, C.N.A. Education in [place], ([facility] [address] [place] [phone] Social History Tobacco Use Types Packs/Day [...] More than 4 times per year 10/31/2021 druze services? Do you belong to any clubs [...] documented as of this encounter Progress Notes Geovani Pickett, C.N.A. - 11/13/2021 11:04 AM CDT Referral from Teetee De La Rosa to contact patient and discuss discounted lodging options as patient willbe completing radiation treatment in [place]. I spoke with the patient via phone and discussed thediscounted lodging options available while [facility] is at reduced capacity. I have emailed this information for the patient to review. I encouraged her to send me an email or give me a call if she has any additional questions, . BNL documented in this encounter Plan of Treatment Not on filedocumented as of this encounter Visit Diagnoses Not on filedocumented in this encounter
--- OUTSIDE RECORDS SUMMARY | 2022-04-03 11:28 | XMS_ITS | Encounter Summary ---
:1970 Author Organization [facility] Address [address] [place] [id number] Care Team Providers Name Role Phone Unavailable Primary Care Provider Unavailable Reason for Referral Outpatient (Routine) - Closed Specialty Diagnoses / Procedures Referred By Contact Refer red To Contact Diagnoses Malignant Neoplasm Of Breast Upper Outer Quadrant Female Left (HCC) [facility] Elen Augustin APRN, [facility] Procedures US Kidney Right [facility] [address] [place] [address] Referral ID Status Reason Start Date Expiration Date Visits Requ ested Visits Authorized [id number] Closed 11/08/2021 11/08/2022 1 1 Reason for Visit Outpatient (Routine) - Closed Specialty Diagnoses / Procedures Referred By Contact Refer red To Contact General Surgery / Diagnoses Malignant Neoplasm Of Breast Upper Outer Quadrant Female Left (HCC) Tyree Moraes, [facility] Breast and Melanoma [place], M.S. 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 [place], [place] [address] [place] [phone] Social History Tobacco Use Types Packs/Day Years [...] or relatives? How often do you attend voodoo or More than 4 times per year 10/31/2021 church services? Do you belong to any clubs or No 10/31/2021 organizations such as voodoo groups, unions, fraternal or athletic groups, or [...] documented as of this encounter Consult Notes Elen Augustin, CARLY, C.N.P., D.NYeP. - 11/07/2021 11:00 AM CDT Images from the original note were not included. SUBJECTIVE REASON FOR CONSULT Breast Carcinoma Source of consultation: Tyree Moraes M.D., M.S. HISTORY OF PRESENT ILLNESS Joceline Uribe is a 51 y.o. female seen for surgical consultation regarding her breast carcinoma diagnosis. The patient presented to her primary provider in February 2021, Dr. Freddie Chao, with a chief complaint of left breast dimpling that she first noticed at the end of January 2021. The breast was tender to touch and at times felt itchy. There was no nipple drainage, redness of the skin, or swelling noted. Physical examination demonstrated skin dimpling of the left breast at the 1 o'clock position, but no peau d'orange. Diagnostic mammogram and ultrasound was ordered. Bilateral diagnostic mammogram and left breast ultrasound was performed on March 15, 2021. This demonstrated a new mass with distortion and spiculated borders measuring 1.7 cm, at the site of palpable concern located at the left axillary tail. No suspicious mass, distortion, or suspicious calcifications in the right breast. Targeted diagnostic left breast ultrasound demonstrated a palpable lump at approximately the 2 o'clock position, 11 cm from the nipple. There was a suspicious solid, hypoechoicmass with irregular, spiculated borders, measuring up to 2.2 cm. ?? Subsequent ultrasound of the left axilla demonstrated a suspicious round, hypoechoic structure, suspicious for an abnormal lymph node measuring 1.0 cm. Additional lymph nodes in the adjacent left axilla demonstrated preservation of fatty vani with no definite eccentric, nodular cortical thickening. On March 19, 2021 the patient underwent ultrasound guided left breast and left axillary biopsy. 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 Pathology from the left axilla biopsy revealed fragments of benign lymph node and was negative for metastatic carcinoma in the sampling. The patient underwent breast MRI on March 25, 2021. This demonstrated in the left breast, at approximately the 2 o'clock position, posterior depth, 12 cm from the nipple, an irregular mass with irregular margins measuring 2.3 x 2.4 x 2.6 cm. There was a preserved fat plane between the mass and chestwall. This was consistent with the biopsy-proven malignancy. There were no additional suspicious areas of enhancement within the left breast. In the right breast, there was an oval mass measuring 1.4 x0.7 cm, stable compared to prior MRI, consistent with a benign fibroadenoma. There were borderline prominent and rounded left axillary lymph nodes, one of which contained a biopsy marker clip. These appeared numerous on the right side; however, had a similar morphology. They also appeared similar to the prior exam. The patient underwent genetic testing which did not reveal any genetic mutations. On April 25, 2021, the patient underwent left breast lumpectomy and left axillary sentinel lymph node biopsy performed by Dr. Katherine Hawthorne. Pathology revealed invasive ductal carcinoma, grade 3, 2.2cm in greatest dimension, ER positive 96%, AK positive 76%, HER2 negative by FISH. DCIS, grade 3 wasalso found. Invasive carcinoma was less than 1 mm from the posterior margin, DCIS was less than 1 mmfrom the posterior and inferior margins, and the next closest margin was lateral, 2 mm from invasiveand in situ carcinoma. Margin re-excision was performed which showed invasive ductal carcinoma, 4 mmin greatest dimension and DCIS. Invasive carcinoma was 3 mm from the inferior margin, and DCIS was 5mm from the inferior margin. Left breast sentinel lymph node biopsy showed metastatic carcinoma in 5/6 lymph nodes with the largest deposit being 1.1 cm in greatest dimension. There was less than 1 mm of extracapsular extension. HER2 by IHC was negative. Pathologic stage classification pT2 pN2a. The patient underwent postoperative CT scan of the chest, abdomen and pelvis on May 15, 2021. This demonstrated postsurgical changes from recent left lumpectomy and left sentinel node evaluation with likely postoperative seroma in the left axilla measuring 4.9 cm. Indeterminate solitary pulmonarynodule in the left lower lobe, noncalcified, measuring 3.3 mm. Mildly prominent, indeterminate rightaxillary lymph nodes. No findings of metastatic disease in the abdomen or pelvis. No focal liver lesions or lymphadenopathy. No suspicious bony metastases in the chest, abdomen, or pelvis. Ultrasound of the right axilla on May 23, 2021, demonstrated several axillary lymph nodes. The majority of these demonstrated well-defined vani although deep within the axilla, there were hypoechoiclymph nodes measuring up to 2.0 cm with effacement of the vani, suspicious for tumor involvement. Ultrasound-guided right axillary lymph node biopsy was recommended and performed on June 05, 2021. This revealed reactive follicular lymphoid hyperplasia and was negative for metastatic carcinoma or lymphoma in the sampling. The patient began chemotherapy with Adriamycin and Cytoxan for 4 cycles on June 07, [address] under the car eof Dr. Sandy Martins. PET/CT scan obtained on June 18, 2021 demonstrated prior left breast lumpectomy with decreased size of residual postop left breast seroma. No suspicious lumpectomy site uptake. Multiple avid left axillary lymph nodes were highly suspicious for metastatic gisell disease. High axillary lymph node measu red 1.4 x 0.9 cm, SUV max 10.2. A low axillary lymph node measured 1.5 x 1.2 cm, SUV max 14.4. Left adnexal/ovarian mass with moderate uptake was indeterminate, measuring 2.4 x 1.7 cm, SUV max 9.6. Findings consistent with marrow activation throughout the spine, pelvis, thorax, and proximal extremities. Ultrasound of the pelvis on July 02, 2021, demonstrated that there was a 1 cm hyperechoic area in the left ovary corresponding to area of calcification on the recent PET-CT. Otherwise the size of the left ovary was within normal limits. Finding may be related to a small dermoid. The visualized right ovary was within normal limits. From August 16, 2021 through September 27, 2021 the patient received Paclitaxel x7 out of the planned 12 weekly doses. This was discontinued due to worsening neuropathy. PET/CT scan was obtained again on October 08, 2021 which demonstrated resolution of left axillary adenopathy, SUV [...] no corresponding CT abnormality, SUV max 5.8. On October 11, 2021 the patient had an appointment with Dr. Sandy Martins where the patient continued tricia concerned about her neuropathy symptoms. Given her prior spinal cord injury, this is of more concern in terms of affecting her function going forward. They discussed that if she were to stop treatment at this point, Dr. Martins did not feel that she would require axillary surgery. Her recommendationwould be to proceed with radiation to the left breast and also the axilla. After discussion, the decision was made to discontinue chemotherapy. Adjuvant hormone therapy was also discussed and the recommendation was to proceed with tamoxifen, which the patient has started and is taking. The plan was tocheck hormone levels and once it was clear that the patient is postmenopausal, plan to transition her to an aromatase inhibitor. Follow-up in 3 months. The patient met with Radiation Oncology at [facility] on November 04, 2021, at which time she consentedto receive radiation therapy to the left breast. The patient was presented at [facility] on November 05, 2021 where the consensus from the experts wasto proceed with radiation as well as left axillary lymph node dissection. Of note, the MRI on March 25, 2021 that was reviewed by [facility] showed a small indeterminate mass adjacent adjacent to the biopsy proven mass. Immediately anterior and slightly (approximately 1.4cm) superior to the mass there was a small enhancing mass measuring up to 0.7 cm. This may representa benign focus of enhancement, however given the proximity to the primary mass, may represent a satellite lesion. The multidisciplinary team felt a repeat MRI done at [place] would be beneficial. This wascompleted on November 07, 2021 and results were not available at the time of this note. Joceline presents to Breast Surgical Oncology at [facility] with her supportive , Krunal, for a second opinion regarding whether or not additional surgery would be recommended. The patient reports she has minor lymphedema of the left arm. She states she wears a compression sleeve that has the lowest amount of compression. She reports she has full range of motion in her left arm. The patient does not take any blood thinners. She denies a history of bleeding or clotting disorders. She denies a history of DVT, PE, or serious problems with anesthesia in the past. However, the patient states she has significant postoperative nausea and vomiting. She also reports that the corporate director talent assessment the anesthesia is, the better. The patient reports that the heart monitor patches that are placed onher at the time of surgery need to review removed immediately following surgery as they irritate herskin very badly and will cause her dewitt. She is not diabetic. She has no toxic habits. Her medical history is notable for a cervical spine injury which impacts her ambulation. She is currently ambulating with two crutches. Breast-Relevant Surgical History Procedure Laterality Date Comment Source HYSTERECTOMY LUMPECTOMY BREAST WITH SENTINEL NODE BIOPSY Left 04/25/2021 Breast-Relevant Family History No family history of breast, ovarian, colon, or pancreatic cancer. Ashkenazi [place]ian descent: No Personal history genetic counseling: Yes Personal history genetic testing: Yes Family history genetic testing: Yes Patient mutations for Joceline Uribe: none Genetic mutations among Joceline Uribe's family members: None The following portions of the patient's history were reviewed: allergies, current medications, family history, medical history, social history and surgical history OBJECTIVE PHYSICAL EXAM Constitutional Appearance: She is well-developed and well-nourished. Breast Right breast exhibits no inverted nipple, no skin change, no mass, no tenderness and no nipple discharge. Left breast exhibits no inverted nipple, no skin change, no mass, no nipple discharge and no tenderness. Right lymph nodes: no axillary adenopathy and no supraclavicular adenopathy Left lymph nodes: no axillary adenopathy and no supraclavicular adenopathy Patient is wearing a lymphedema sleeve at the time of exam. Her left arm does not appear edematous and she has full range of motion. Neurological Mental Status: She is alert and oriented to person, place, and time. Psychiatric Attention and Perception: Attention and perception normal. Mood and Affect: Mood and affect normal. Speech: Speech normal. Behavior: Behavior normal. Thought Content: Thought content normal. Cognition and Memory: Cognition normal. Judgment: Judgment normal. ASSESSMENT / PLAN It was a pleasure to meet with Joceline and her supportive , Krunal, today. We reviewed her medical history, surgical history, and clinical course pertaining to her breast cancer diagnosis in detail. I discussed with Joceline that she was presented as a part of our E tumor board. The consensus from thesurgeons present at that meeting was for the patient to proceed with a left axillary lymph node dissection given she had 5/6 positive sentinel lymph nodes at the time of surgery and PET avidity of the left axilla following surgery. We discussed that axillary lymph node dissection in detail. This involves removing levels 1 and 2 of the lymph nodes in the left axilla. This procedure increases her risk of lymphedema by about 20-25%, and radiation can make that risk higher. The patient reports she already has some minor lymphedema, so we have her set up to see Physical Medicine and Rehab immediately following our visit today. We discussed various aspects of surgical care. Joceline understands she will have a drain following theleft axillary lymph node dissection. She understands her surgery will be an outpatient procedure. She understands she will meet back with the surgery teams approximately 1-2 weeks after surgery for a postoperative visit. I also discussed with the patient that given her current minor lymphedema, we will have her meet with our colleague, Dr. Saravia, in Plastic Surgery to discuss potential lymphovenous bypass at the time of her left axillary dissection. The patient was excited about this potential procedure that may re duce her risk of developing lymphedema. We discussed the small indeterminate mass near her lumpectomy site that was seen on [facility] review of her outside MRI. The patient understands she will be having an MRI this evening to assess this area and to make sure it is not a second site of cancer within the left breast. I explained to the patient that we want to ensure no stone is left unturned prior to her meeting with Dr. Berger on November 11 and planning for a surgical date. We will contact the patient once her MRI results become available. The patient understands she should reach out to Dr. Berger's team with any additional questions or concerns. Dr. Berger will be seeingthe patient for a consult on Thursday, November 11, 2021. documented in this encounter Plan of Treatment Not on filedocumented as of this encounter Results US Kidney Right (11/20/2021 [...] documented in this encounter Visit Diagnoses Diagnosis [facility] - Primary Malignant Neoplasm Of Breast Upper Outer Quadrant Female Left (HCC) Malignant Neoplasm Of Breast Upper Outer Quadrant Female Left (HCC) [facility] documented in this encounter
--- OUTSIDE RECORDS SUMMARY | 2022-04-03 11:28 | XMS_ITS | Encounter Summary ---
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 [address] [place] [phone] 201 [facility] Supriya Gayle M.D. [address] [place] [phone] [place] [phone] Anesthesia Record Procedure Summary Procedure Name Responsible Anesthesia Start Anesthesia Stop Time Anesthesiologist Time LEFT AXILLARY LYMPH Willam Castillo M.D. 11/12/21 1047 11/12 1704 NODE DISSECTION. (Left) Events Date Time Event Comment 11/12/2021 1047 An Start Machine/Equipmen t Checked Infection Precautions Foll owed Procedure/Site Verified NPO Sta tus Verified Supine Standard ASA Mon itors Applied 1053 An Induction 1055 An Intubation 1111 Turnover to Proceduralist 1144 Proc Start 1640 Proc Fin 1642 Turnover to ANE Staff 1648 Airway Removal Criteria Met 1648 Extubation/Airway Removed 1649 an stop data 1704 An End I completed my h andoff to the receiving staff during [facility] we 1. Identified the patient 2. Ident ified the responsible provider 3. Revi ewed the pertinent medical history 4. Discussed the surgical course 5. Review ed intra-op anesthesia management and i ssues during anesthesia 6. Set expectati ons for post-procedure period 7. Allowe d opportunity for questions and ac knowledgement of understanding. Name Total fentanyl injection 50 mcg/mL 150 mcg lidocaine 2% (mg) injection 75 mg propofol 10 mg/mL 200 mg propofol 10 mg/mL infusion 872.51 mg rocuronium 10 mg/mL injection 50 mg ePHEDrine PF 5 mg/mL syringe injection 35 mg ondansetron 4 mg/2 mL injection 4 mg sugammadex 100 mg/mL injection 168.6 mg fosaprepitant 150 mg in NaCl 0.9% (non-PVC) IVPB (EMEN D) 150 mg clindamycin in D5W IVPB 900 mg (CLEOCIN) 900 mg heparin 5,000 Units/mL injection 5,000 Units dexamethasone 4 mg/mL injection 4 mg Lactated Ringers Free Drip 900 mL NaCl 0.9 % free drip 1,000 mL Agents No agents on file. Blood No blood administrations on file. Lines, Drains, and Airways Type Details Placement Removal Wound 11/12/21; 1522; Incision; 11/12/21 1522 by Axilla; Left; dermabond, Gentz, Celeste J, steri strips, guaze, wrap R.N. Peripheral IV Placement Date: 11/12/21; 11/12/21 0715 by 11/128 by Placement Time: 714; Ivonne Villalpando Emily G, Catheter Size: 20 G; R.N. Orientation: Anterior, Lower, Right; Location: Forearm; Site Prep: Chlorhexidine (Preferred); Technique: Anatomical landmarks (vcr); Inserted by: ael; Insertion Attempts: 1; Removal Date: 11/12/21; Removal Time: 1938; Removal Reason: Patient discharged ETT Placement Date: 11/12/21; 11/12/21 1055 by 11/12 1648 by Placement Time: 1055 Ramakrishna Lind O'Rourke, S ean, (created via procedure KEYLA CARROLL APRN, LOIDA A documentation); Mask Ventilation: Easy mask; Type: Standard ETT; Single Lumen Tube Size: 7 mm; Cuffed: Yes; Location: Oral; Grade View: Grade 1; Insertion Attempts: 1; Placement Verification: Bilateral breath sounds, Positive ETCO2, Symmetrical chest wall movement; Removal Date: 11/12/21; Removal Time: 164 Indwelling Urinary Placement Date: 11/12/21; 11/12/21 1103 by 1643 by Catheter Placement Time: 1103; Sridevi Nunes Gentz, A urora J, Inserted by: Filomena Woodard CSA; Type: Double-lumen; Size: 16 Fr.; Balloon Size: 5 mL; Urine Returned: Yes; Removal Date: 11/12/21; Removal Time: 1642; Removal Reason: Criteria for drain removal met Closed/Suction Drain 11/12/21; 1628; Left; 11/12/21 1628 by 11/15 06/08 1438 by Breast; 15 Fr.; Criteria Celeste Stanley Stromn ess, Jorden for drain removal met R.N. M, L.P.N. documented in this encounter Social History Tobacco Use Types Packs/Day Years [...] or relatives? How often do you attend latter day or More than 4 times per year 10/31/2021 amish services? Do you belong to any clubs or No 10/31/2021 organizations such as latter day groups, unions, fraternal or athletic groups, or [...] PM CDT documented as of this encounter OR Notes Anesthesia Procedure Notes - Ramakrishna Lind APRN, EKYLA - 11/12/2021 11:12 AM CDTAssociated Order(s): Airway Airway Date/Time: 11/12/2021 10:55 AM Performed by: Ramakrishna Lind APRN, CRNA Authorized by: Supriya Ignacio M.D. Patient location during procedure: OR / Procedure Area PROCEDURE DETAILS: Mask difficulty assessment: easy mask Final airway type: video laryngoscope Laryngeal Manipulation: no Final best view of glottic structures - Cormack/Lehane Score: grade 1 ETT location: oral VL device: glide scope Sundown scope blade size: 3 Adult tube size: 7 Adult ETT distance at teeth/gum: 22 Oral tube type: standard ETT Cuffed: yes Number of attempt to successful placement: 1 Airway confirmation: bilateral breath sounds, positive ETCO2 and bilateral chest rise Other previous techniques attempted: none PRE PROCEDURE DETAILS: Pre evaluation for airway management: procedure Urgency: elective Preop assessment of probable difficulty: no difficulty anticipated Preoxygenation: bag valve mask SEDATION / ANESTHESIA Anesthesia method: anesthesia POST PROCEDURE DETAILS: Procedure outcome: successful Airway event: no complications Anesthesia Preprocedure Evaluation - Supriya Ignacio M.D. - 11/12/2021 9:52 AM CDT Preprocedure Anesthesia & H&P Assessment Procedure Summary Date/Time: 11/12/21 0843 Procedures: LEFT AXILLARY LYMPH NODE DISSECTION. (Left ) LEFT AXILLARY BYPASS LYMPHOVENOUS, BYPASS LYMPHATICOVENOUS. (Left ) Intraoperative upper extremity ICG lymphography mapping. 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 Location: [place] [address] / [facility] in [place], [place] Providers: Jennifer Berger D.O.; Eber Saravia M.D. Pertinent components of the patient's history including current problem list, medical history, surgical history, family history, social history, medications and allergies were reviewed. Present illnessand pre-op diagnosis were confirmed. The planned surgery / procedure was verified with the patient /legal guardian. 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) menieres disease History of cervical fusion PONV 04/2021 TTE EF 64%, GLS -21% OBJECTIVE PHYSICAL EXAMINATION Airway (HEENT) Mallampati: II TM Distance: >3 FB Neck ROM: Limited Mouth Opening: >3 cm Cardiovascular Rhythm: Regular Rate: Normal Cardiovascular Assessment: cardiovascular normal Functional Capacity: >4 METS Pulmonary Pulmonary Assessment: Non labored General / Constitutional Constitutional Assessment: Normal Neurological Neurologic Assessment:??alert Dental Dental Assessment: dentition intact ASSESSMENT / PLAN ANESTHESIA PLAN ASA: 2 Anesthesia Plan: general Patient seen and allergies reviewed, anesthesia plan and risks discussed directly with patient /legal guardian or through an automotive parts interpreter. Risks/Benefits/Alternatives of Blood transfusion discussed with patient / legal guardian, including an opportunity to ask questions and/or decline some or all transfusion therapies. The patient / legalguardian consented to the use of all blood products, as deemed medically necessary Approval to Proceed: approved for anesthesia documented in this encounter Plan of Treatment Not on filedocumented as of this encounter Procedures Procedure Name Priority Date/Time Associated Comments Diagnosis LDA ANE ENDOTRACHEAL Routine 11/12/2021 10:55 Res ults for this AIRWAY AM CDT procedure are i n the results section. documented in this encounter Results LDA ANE ENDOTRACHEAL AIRWAY (11/12/2021 10:55 AM CDT) Narrative Ramakrishna Lind APRN, CRNA - 11/12/2021 10:55 AM CDT Ramakrishna Lind APRN, CRNA ? 11/12/2021 11:13 AM Airway Date/Time: 11/12/2021 10:55 AM Performed by: Ramakrishna Lind APRN, CRNA Authorized by: Supriya Ignacio M. D. Patient location during procedure: OR / Procedure Area PROCEDURE DETAILS: Mask difficulty assessment: easy mask Final airway type: video laryngoscope Laryngeal Manipulation: no ?? Final best view of glottic structures - Cormack/Lehane Score: grade 1 ETT location: oral VL device: glide scope Sundown scope blade size: 3 Adult tube size: 7 Adult ETT distance at teeth/gum: 22 Oral tube type: standard ETT Cuffed: yes Number of attempt to successful placemen t: 1 Airway confirmation: bilateral breath so unds, positive ETCO2 and bilateral chest rise Other previous techniques attempted: non e PRE PROCEDURE DETAILS: Pre evaluation for airway management: pr ocedure Urgency: elective Preop assessment of probable difficulty: no difficulty anticipated Preoxygenation: bag valve mask SEDATION / ANESTHESIA Anesthesia method: anesthesia POST PROCEDURE DETAILS: ? Procedure outcome: successful ?? Airway event: no complications Supriya Ignacio M.D. ANESTHESIA ORDERABLES documented in this encounter Visit Diagnoses Not on filedocumented in this encounter Administered Medications Inactive Administered Medications - up to 3 most recent administrations Medication Order MAR Action Action Date Dose Rate Site clindamycin in D5W IVPB 900 mg Given 11/12/2021 11:13 AM CDT 900 mg (CLEOCIN) 900 mg, intravenous, at 100 mL/hr, Administer over 30 Minutes, Once, On Thu11/12/21 at 1030, For 1 dose, Intra-Op, Indications: Prophylaxis, surgical dexAMETHasone injection (DECADRON) Given 11/12/2021 4:59 PM CDT 4 mg intravenous, As needed, Starting on Thu11/12/21 at 1659, Anesthesia Intra-op ePHEDrine (PF) injection Given 11/12/2021 1:46 PM CDT 10 mg intravenous, As needed, Starting on Thu11/12/21 at 1141, Anesthesia Intra-op Given 11/12/2021 12:51 PM CDT 10 mg Given 11/12/2021 12:34 PM CDT 5 mg fentaNYL injection (SUBLIMAZE) Given 11/12/2021 4:08 PM CDT 50 mcg intravenous, As needed, Starting on Thu11/12/21 at 1054, Anesthesia Intra-op Given 11/12/2021 3:08 PM CDT 25 mcg Given 11/12/2021 2:57 PM CDT 25 mcg fosaprepitant 150 mg in NaCl 0.9% New Bag 11/12/2021 11:03 AM CDT 150 mg (non-PVC) IVPB (EMEND) 150 mg, intravenous, at 510 mL/hr, Administer over 30 Minutes, Once, On Thu11/12/21 at 1030, For 1 dose, Intra-Op, Incompatible with solutions containing divalent cations (calcium, magnesium) including lactated Ringer's solution. heparin (porcine) injection Given 11/12/2021 2:10 PM CDT 5,000 Units subcutaneous, As needed, Starting on Thu11/12/21 at 1410, Anesthesia Intra-op lactated ringers New Bag 11/12/2021 1:57 PM CDT intravenous, Continuous Infusion: Per Instructions PRN, Starting on Thu11/12/21 at 1357, Anesthesia Intra-op lidocaine (PF) (cardiac) injection Given 11/12/2021 10:54 AM CDT 75 mg intravenous, As needed, Starting on Thu11/12/21 at 1054, Anesthesia Intra-op NaCl 0.9% infusion New Bag 11/12/2021 10:47 AM CDT intravenous, Continuous Infusion: Per Instructions PRN, Starting on Thu11/12/21 at 1047, Anesthesia Intra-op ondansetron (PF) injection (ZOFRAN) Given 11/12/2021 4:17 PM CDT 4 mg intravenous, As needed, Starting on Thu11/12/21 at 1617, Anesthesia Intra-op propofol 10 mg/mL infusion New Bag 11/12/2021 10:54 30 mcg/kg/min 15.174 mL/hr (DIPRIVAN) AM CDT intravenous, Continuous Infusion: Per Instructions PRN, Starting on Thu11/12/21 at 1054, Anesthesia Intra-op propofoL injection (DIPRIVAN) Given 11/12/2021 10:54 AM CDT 200 mg intravenous, As needed, Starting on Thu11/12/21 at 1054, Anesthesia Intra-op rocuronium injection (ZEMURON) Given 11/12/2021 10:54 AM CDT 50 mg intravenous, As needed, Starting on Thu11/12/21 at 1054, Anesthesia Intra-op sugammadex injection (BRIDION) Given 11/12/2021 11:39 AM CDT 168.6 mg intravenous, As needed, Starting on Thu11/12/21 at 1139, Anesthesia Intra-op documented in this encounter
--- OUTSIDE RECORDS SUMMARY | 2022-04-03 11:28 | XMS_ITS | Encounter Summary ---
:1970 Author Organization [facility] Address [address] [place] [address] Care Team Providers Name Role Phone Unavailable Primary Care Provider Unavailable Encounter Details Date Type Department Care Team Description 11/12/2021 Orders Only Division of Plastic Surgery Marcus Ansari M.D. in [facility] pharmaceutical botanist [address] [facility] [address] [place] [phone] (Wo rk) Social History Tobacco Use Types [...]
--- OUTSIDE RECORDS SUMMARY | 2022-04-03 11:28 | XMS_ITS | Encounter Summary ---
:1970 Author Organization [facility] Address [address] [place] [address] Care Team Providers Name Role Phone Unavailable Primary Care Provider Unavailable Encounter Details Date Type Department Care Team Description 11/08/2021 Orders Only Division of Breast and Elen Augustin, Melanoma Surgical Oncology SCRIPT GIRL, C.N.P., D.N.P. in [facility] eddie [address] [facility] [address] [place] [phone] (Wo rk) Social History Tobacco Use Types [...] or relatives? How often do you attend sabianist or More than 4 times per year 10/31/2021 methodist services? Do you belong to any clubs or No 10/31/2021 organizations such as sabianist groups, unions, fraternal or athletic groups, or [...] Diagnoses Not on filedocumented in this encounter Additional Health Concerns Infection Onset Date Last Indicated Resolved Time COVID19 Pending 11/11/2021 11/11/2021 11/11/2021 7:28 PM CDT documented as of this encounter
--- OUTSIDE RECORDS SUMMARY | 2022-04-03 11:28 | XMS_ITS | Encounter Summary ---
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 Breast Upper Outer [place] [address] [facility] Quadrant Female Left [address] [place], [place] ([facility]) [place] [id number] [phone] Social History Tobacco Use Types Packs/Day Years [...] 10/31/2021 organizations such as uatsdin groups, unions, fraPolyera or athletic groups, or school groups? How [...] Sign Reading Time Taken Comments Blood Pressure 125/62 11/12/2021 7:30 PM CDT Pulse 75 11/12/2021 7:30 PM CDT Temperature 36.4 ??C (97.5 ??F) 11/12/2021 7:30 PM CDT Respiratory Rate 16 11/12/2021 7:30 PM CDT Oxygen Saturation 97% 11/12/2021 7:30 PM CDT Inhaled Oxygen Concentration - - Weight 84.3 kg (185 lb 13.6 oz) 11/12/2021 7:09 AM CDT Height 164 cm (5' 4.57) 11/12/2021 7:09 AM CDT Body Mass Index 31.34 11/12/2021 7:09 AM CDT documented in this encounter Medications [...] as needed. 0 09/06/2021 0.1 % cream sennosides-docusate Take 1 tablet by 3 tablet 0 11/12/2021 11/15/2021 sodium (SENOKOT-S) 8.6-50 mouth daily for 3 mg per tablet days. acetaminophen (TYLENOL) Take 2 tablets 100 tablet [...] Pain Exception. documented as of this encounter OR Notes Op Note - Jennifer Berger D.O. 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 Posey Operative Findings: Complications: None Indications for Operation: Neoadjuvant therapy: Chemotherapy Procedure(s): Left axilla procedure: ALND Left Axillary Lymph Node Dissection: Incision: Separate axillary incision Levels of axillary lymph nodes in dissection: I-II Thoracodorsal nerve: Identified and preserved CALND Factors Long thoracic nerve: Identified and preserved Intercostal-brachial nerves: Sacrificed Drain: 15F channel drain placed Skin closure: Multiple layers with absorbable suture Additional incision care: SteriStrip(s) Comments: After informed consent was obtained, the patient was taken to the operating room and placed supine on the operating room table and placed under general endotracheal anesthesia. The patient received preoperative antibiotics. The left breast and axilla were prepped and draped in usual sterile fashion. Asurgical pause confirming the patient and planned surgery was performed. Lymphazurin blue dye was injected intradermally into upper inner arm of the operative side. A U-shaped incision was drawn with the marking pen at the inferior border of axillary hairline to include and resect the prior incision. This incision was made with a scalpel, and Bovie cautery was used to dissect skin flaps superiorly, inferiorly, and laterally. Laterally, dissection continued into the axilla to identify the axillary vein superiorly. From there the thoracodorsal nerve, artery, and vein were identified. Dissection continued along the chest wall where the long thoracic nerve was identified. Level I and level II axillary lymph nodes were dissected free from the surrounding structureswith use of the Bovie cautery in the superficial tissues and using clips and Metzenbaum scissors when dissection was in proximity to the nerves. Careful dissection was performed along the thoracodorsalneurovascular bundle as this was scarred in densely to the patient's prior surgical site. Branches of the axillary vein were carefully dissected in length in order to aid in lymphovenous bypass. Additio zafar, a single blue lymphatic was identified entering the dissection cavity from the lateral aspectand was preserved in length for lymphovenous bypass. Lateral dissection continued to the latissimus dorsi. Level I and II lymph nodes were submitted to Pathology. Palpation of level III revealed no palpable lymph nodes. The long thoracic and thoracodorsal nerves were intact and functional at the end of the case. The wound was irrigated and hemostasis obtained. A Valsalva maneuver was performed by ourAnesthesia colleagues, and hemostasis was ensured. At the completion of my portion of the procedure,the patient's care was handed over to Dr. Saravia of Plastic and Reconstructive surgery for lymphovenous bypass. All needle, sponge, and instrument counts were correct. The patient's family was updated on the intraoperative findings Jennifer Berger D.O. Op Note - Eber Saravia M.D. - 11/12/2021 11:44 AM CDT Procedure: 1. Left axillary lymphatic venous bypass. 4. ??ICG lymphangiography, left upper extremity. 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 Findings Left upper extremity lymphangiography revealed normal lymphatic ??drainage and contractility on ICG lymphangiogram Complications None Operative Note Narrative ??The patient was taken to the operating room and placed supine ??on the operating table and following administration of perioperative antibiotics and ??placement of sequential compression devices, thepatient was prepped and draped in ??standard sterile fashion. ??Following induction, the operation commenced with Dr. Berger performing left axillary lymph node dissection. ??This will be dictated in detail by her. ??Of note, she utilized axillary reverse ??lymphatic mapping technique with isosulfan blue to highlight draining left upper ??extremity lymphatics. ??The operation was turned over to us. Cut ??ends of the lymphatics were identified and dissected ??to ??achieve ??additional ??length. ?A ??cut end of what appeared to be anterior branch of thoracodorsal vein ??was ??further ??dissected??and ??trimmed. ??There appeared to be no backflow ??in ??this ??vein. ??Anastomosis ??was performed between one lymphatics and this vein using ??a ??parachuting ??technique with 11-0 Nylon sutures. ?? Next, ICG lymphangiography ??was performed by injecting 0.5 mL of indocyanine green into ??the dorsal web spaces of ??the left hand using the near infrared Spy Phi device. ??The ??lymphangiogram was taken ??revealing excellent lymphatic drainage and flow through ??the left upper extremity. Anastomosiswas visualized with Spy Phi camera demonstrating uninterupted flow of fluorescence through the LVB. Next, 4 cc fibrin glue was used to freeze the anastomosis in place. Wound was irrigated, Exparel was injected, 15 FR drain was placed and secured with 3-0 Nylon suture. Wound was approximated with 3-0 Monocryl deep dermal and closed with 4-0 Monocryl running subcuticular sutures. Incision was washed and dried, Dermabond and brown steri-strips were applied. ?? The patient was then awoken ??from ??anesthesia ??having ??tolerated the procedure well. Eber Saravia M.D. Brief Op Note - Geovani Reynoso M.D. 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 documented in this encounter Plan of Treatment Not on filedocumented as of this encounter Procedures Procedure Name Priority Date/Time Associated Comments Diagnosis SURGICAL PATHOLOGY, Routine 11/12/2021 2:05 Malignant Neoplasm Results for this [facility] PM CDT Of Breast Upper procedure ar e in Outer Quadrant the results Female Left (HCC) section. LYMPHATIC MAPPING 11/12/2021 10:25 Malignant Neoplasm AM CDT Of Breast Upper Outer Quadrant Female Left (HCC) OTHER 11/12/2021 10:25 Malignant Neoplasm AM CDT Of Breast Upper Outer Quadrant Female Left (HCC) BYPASS 11/12/2021 10:25 Malignant Neoplasm LYMPHOVENOUS/BYPASS AM CDT Of Breast Upper LYMPHATICOVENOUS Outer Quadrant Female Left (HCC) DISSECTION LYMPH NODE 11/12/2021 10:25 Malignant Neopl asm AXILLARY AM CDT Of Breast Upper Outer Quadrant Female Left (HCC) documented in this encounter Results Surgical Pathology, [facility] (11/12/2021 2:05 PM CDT) Component Value Ref Test Analysis Performed Pathologis t Range Method Time At Signature 11/14/2021 [facility] 4:36 PM CDT Report Fredi Sanchez M.D., Ph.D. 11/14/2021 [facility] electronically 4:36 PM signed by CDT I verify that I have examined all relevant slides/materials for the specimen(s) and rendered or confirmed the diagnosis. Gross Description A. ??Received fresh labeled left axillary lymph node 11/14/2021 [facility] dissection contents is a 9.3 x 7.2 x 3.4 cm axillary 4:36 PM dissection. ??Multiple (22) potential lymph nodes (ranging CDT in size from 0.3 cm to 1.6 cm in greatest dimension) are present within the adipose tissue. ??A 3.2 x 3 x 2.2 cm white fibrotic area with embedded metallic surgical clips, consistent grossly with a prior surgical resection site, is also present within the adipose tissue. ??All lymph nodes are submitted for permanent sections only. ??Bushing And Broach Operator tissue from the white fibrotic area is submitted for permanent sections only. ??Grossed by Peyton Borrero. Block Summary A Left axillary lymph node dissection contents 11/14/2021 [facility] A1 Left axillary lymph nodes - 1(A1) 4:3 6 PM A2 Left axillary lymph nodes - 2(A2) CDT A3 Left axillary lymph nodes - 2(A3) A4 Left axillary lymph nodes - 1(A4) A5 Left axillary lymph nodes - 3(A5) A6 Left axillary lymph nodes - 1(A6) A7 Left axillary lymph nodes - 2(A7) A8 Left axillary lymph nodes - 3(A8) A9 Left axillary lymph nodes - 3(A9) A10 Left axillary lymph nodes - 4(A10) A11 Left axillary biopsy site - 1 A12 Left axillary biopsy site - 2 Interpretation FINAL DIAGNOSIS 11/14/2021 [facility] 4:36 PM A. ??Lymph nodes, left axillary contents, dissection: CDT Multiple (8 of 20) lymph nodes are positive for metastatic mammary ductal carcinoma, including 6 lymph nodes with macrometastasis and 2 lymph nodes with micrometastasis. The largest metastasis measures 6 mm. Extranodal extension is present, 2 mm. Specimen (Source) Anatomical Collection Method Collection Time Re ceived Time Location / / Volume Laterality Tissue (Lymph 11/12/2021 2:05 PM Node) CDT Narrative This result has an attachment that is no t available. Jennifer Berger D.O. LAB SURG PATH ORDERABLES Performing Organization Address City/State/ZIP Code Phon e Number [facility] - [address] [place], [place] [address] [facility] [place] [address] [facility] [address] documented in this encounter Visit Diagnoses Diagnosis Malignant Neoplasm Of Breast Upper Outer Quadrant Female Left (HCC) - Primary documented in this encounter Admitting Diagnoses Diagnosis Malignant Neoplasm Of Breast Upper Outer Quadrant Female Left (HCC) documented in this encounter Administered Medications Inactive Administered Medications - up to 3 most recent administrations Medication Order MAR Action Action Date Dose Rate Site acetaminophen tablet 1,000 mg Given 11/12/2021 9:52 AM CDT 1,000 mg (TYLENOL) 1,000 mg, oral, Once, On Thu11/12/21 at 1000, For 1 dose, Pre-Op, Preprocedure on unit with sips acetaminophen tablet 1,000 mg (TYLENOL) Given 11/12/2021 5:19 PM CDT 1,000 mg 1,000 mg, oral, Once as needed, other, If patient has not received in the previous 6 hours, Starting on Thu11/12/21 at 1714, For 1 dose, PACU (only), Oral unless RASS less than -1 or nausea/vomiting. Do not use if given in last 6 hours celecoxib capsule 400 mg (CeleBREX) Given 11/12/2021 9:52 AM CDT 400 mg 400 mg, oral, Once, On Thu11/12/21 at 1000, For 1 dose, Pre-Op, Preprocedure on unit with sips lactated ringers Continued from OR 11/12/2021 4:55 PM CDT 20 mL/hr 20 mL/hr 20 mL/hr, intravenous, Continuous, Starting on Thu11/12/21 at 1715, PACU & Post-Op scopolamine base 1 mg Medication Applied 11/12/2021 10:19 AM 1 patch Behind Left Ear over 3 days 1 patch CDT (TRANSDERM SCOP) 1 patch, transdermal, Administer over 72 Hours, Every 72 hours, First dose on Thu11/12/21 at 1030, Pre-Op, Contains 1.5 mg to deliver 1 mg/72 hours. documented in this encounter Active and Recently Administered Medications Times are shown in CDT. Scheduled Medication Order 11/10/2021 11/11/2021 11/12/2021 acetaminophen tablet 1,000 mg (TYLENOL) (COMPLETED) 951 (Given - Provider: Prudence Martin R.N.) 1,000 mg, oral, Once, On Thu11/12/21 at 1000, For 1 dose, Pre-Op, Preprocedure on unit with sips celecoxib capsule 400 mg (CeleBREX) (COMPLETED) 951 (Given - Provider: Prudence Martin R.N.) 400 mg, oral, Once, On Thu11/12/21 at 10 00, For 1 dose, Pre-Op, Preprocedure on unit with sips clindamycin in D5W IVPB 900 mg (CLEOCIN) (COMPLETED) 1113 (Given - Provider: Ramakrishna Lind APRN, CRNA) 900 mg, intravenous, at 100 mL/hr, Admin ister over 30 Minutes, Once, On Thu11/12/21 at 1030, For 1 dose, Intra-Op, Indications: Prophylaxis, surgical fosaprepitant 150 mg in NaCl 0.9% (non-PVC) IVPB (EMEND) (COMPLE DARRYL) 1103 (New Bag - Provider: Ramakrishna Lind APRN, CRNA)1639 (Stopped - Provider: Ramakrishna Lind APRN, CRNA) 150 mg, intravenous, at 510 mL/hr, Admin ister over 30 Minutes, Once, On Thu11/12/21 at 1030, For 1 dose, Intra-Op, Incompatible with solutions containing divalent cations (calcium, magnesium) including lactated Ringer's solution. scopolamine base 1 mg over 3 days 1 patch (TRANSDERM SCOP) 1019 (Medication Applied - Provider: Prudence Martin R.N.)194 (Due: Medication Removed - Provider: Discharge Provider, Automatic - Comment: Time automatically adjusted from order being discontinued) 1 patch, transdermal, Administer over 72 Hours, Every 72 hours, First dose on Thu11/12/21 at 1030, Pre-Op, Contains 1.5 mg to deliver 1 mg/72 hours. Continuous Medication Order 11/10/2021 11/11/2021 11/12/2021 lactated ringers 1655 (Continued from OR - Provider: Dena Corona R.N.) 20 mL/hr, intravenous, Continuous, Start ing on Thu11/12/21 at 1715, PACU & Post-Op PRN Medication Order 11/10/2021 11/11/2021 11/12/2021 acetaminophen tablet 1,000 mg (TYLENOL) (COMPLETED) 1719 (Given - Provider: Dena Corona R.N.) 1,000 mg, oral, Once as needed, other, I f patient has not received in the previous 6 hours, Starting on Thu11/12/21 at 1714, For 1 dose, PACU (only), Oral unless RASS less than -1 or nausea/vomiting. Do not use if given in last 6 hours bupivacaine liposome (PF) 20 mL, bupivacaine 30 mL 50 mL injecti on (CANCELED) 1632 (Given - Provider: Marcus Watson M.D. - Comment: Left axilla) As needed, Starting on Thu11/12/21 at 1632, Intra-Op isosulfan blue 1 % injection (LYMPHAZURIN) (CANCELED) 1110 (Given - Provider: Geovani Reynoso M.D. - Comment: Left Arm) As needed, Starting on Thu11/12/21 at 1110, Intra-Op thrombin (human plasma)-fibrinogen-aprot inin-Ca topical solution ([facility]) (CANCELED) 1550 (Given - Provid er: Eber Saravia M.D. - Comment: Left axilla) As needed, Starting on Thu11/12/21 at 1550, Intra-Op documented in this encounter
--- OUTSIDE RECORDS SUMMARY | 2022-04-03 11:28 | XMS_ITS | Encounter Summary ---
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 How often do you attend taoist or More than 4 times per year 10/31/2021 baptism services? Do you belong to any clubs or No 10/31/2021 organizations such as taoist groups, unions, fraternal or athletic groups, or [...] daily. levothyroxine (SYNTHROID, Take 75 mcg by mouth 0 03/19/2021 LEVOTHROID) 75 mcg tablet every morning before breakfast. tamoxifen (NOLVADEX) 20 mg Take 20 mg by mouth 0 10/11/2021 tablet daily. triamcinolone (KENALOG) 0.1 as needed. 0 09/07/19 22 % cream documented as of this encounter Plan of Treatment Not on filedocumented as of this encounter Procedures Procedure Name Priority Date/Time Associated Comments Diagnosis MR BREAST RAD - Routine 11/07/2021 8:35 Malignant Results for this BILATERAL WITHOUT (most inpatients PM CDT Neoplasm Of proced ure are in AND WITH IV and all Breast Female the results CONTRAST outpatients) Left (HCC) section. 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 Postoperative changes in the left breast with no evidence of residual or recurrent malignancy in the left breast. 2. Single enlarged left axillary lymph n ode is indeterminate. 3. Benign fibroadenoma in the right micky st with no findings of malignancy. 4. Indeterminate right renal lesion may represent a hemorrhagic cyst. RECOMMENDATION: ??Clinical Management Proceed with planned axillary lymph node dissection. Renal ultrasound is recommended for furt her evaluation of the possible right renal lesion. ASSESSMENT: ??BI-RADS: 2: Benign. Narrative 11/08/2021 9:05 AM CDT REVISED REPORT: EXAM: ??MR BREAST BILATERAL WITHOUT AND WITH IV CONTRAST INDICATION: ??Problem solving HISTORY: ??History of left breast invasi ve ductal carcinoma diagnosed 03/2021 status post breast conservation therapy in April 2021, w ith positive margins and 5 of 6 sentinal nodes positive for malignancy. ?? HORMONAL STATUS: ??Postmenopausal. COMPARISON: ??Prior exam(s) were availab le and reviewed for comparison. TECHNIQUE: ??Dynamic enhanced protocol u sing IV contrast administration with T1 and T2-weighted images and CAD image analysis. FIBROGLANDULAR TISSUE: ??b. Scattered fi broglandular tissue. ?? BACKGROUND PARENCHYMAL ENHANCEMENT: ??a. Minimal FINDINGS: RIGHT BREAST: ??No MRI findings of asa luque in the right breast. Stable oval 1 x 0.5 cm oval T2 hyperintense enhancing mass in the upper inner posterior breast, unchanged from 2011 MRI is benign by definition and should represent a fib roadenoma. RIGHT AXILLA: ??No right axillary lympha denopathy. ?? LEFT BREAST: ??Postoperative changes in the outer posterior left breast. No residual or suspicious enhancement surrounding the lumpectomy c avity. Specifically, the possible satellite lesion described on the preoperative MRI is no longer vis ualized. Stable 0.4 cm benign focus of enhancement in the upper inner breast, middle depth. LEFT AXILLA: ??Single mildly enlarged le ector I axillary lymph node in the high axilla (postcontrast image 12). Other lymph nodes have decrea sed in size and are now normal by MRI criteria. CHEST WALL: ??No internal mammary lympha denopathy. ?? Other findings: Left renal cyst. Indeter minate right renal lesion is not definitely a simple cyst and may represent a hemorrhagic cyst. Procedure Note Marina Mace M.D. - 11/08/2021Forma tting of this note might be different from the original. REVISED REPORT: EXAM: MR BREAST BILATERAL WITHOUT AND WI TH IV CONTRAST INDICATION: Problem solving HISTORY: History of left breast invasive ductal carcinoma diagnosed 03/2021 status post breast conservation therapy in April 2021, w ith positive margins and 5 of 6 sentinal nodes positive for malignancy. HORMONAL STATUS: Postmenopausal. COMPARISON: Prior exam(s) were available and reviewed for comparison. TECHNIQUE: Dynamic enhanced protocol usi ng IV contrast administration with T1 and T2-weighted images and CAD image analysis. FIBROGLANDULAR TISSUE: b. Scattered fibr oglandular tissue. BACKGROUND PARENCHYMAL ENHANCEMENT: a. M inimal FINDINGS: RIGHT BREAST: No MRI findings of maligna ncy in the right breast. Stable oval 1 x 0.5 cm oval T2 hyperintense enhancing mass in the upper inner posterior breast, unchanged from 2011 MRI is benign by definition and should represent a fib roadenoma. RIGHT AXILLA: No right axillary lymphade nopathy. LEFT BREAST: Postoperative changes in th e outer posterior left breast. No residual or suspicious enhancement surrounding the lumpectomy c avity. Specifically, the possible satellite lesion described on the preoperative MRI is no longer vis ualized. Stable 0.4 cm benign focus of enhancement in the upper inner breast, middle depth. LEFT AXILLA: Single mildly enlarged leve l I axillary lymph node in the high axilla (postcontrast image 12). Other lymph nodes have decrea sed in size and are now normal by MRI criteria. CHEST WALL: No internal mammary lymphade nopathy. Other findings: Left renal cyst. Indeter minate right renal lesion is not definitely a simple cyst and may represent a hemorrhagic cyst. IMPRESSION: 1. Postoperative changes in the left gualberto ast with no evidence of residual or recurrent malignancy in the left breast. 2. Single enlarged left axillary lymph n ode is indeterminate. 3. Benign fibroadenoma in the right micky st with no findings of malignancy. 4. Indeterminate right renal lesion may represent a hemorrhagic cyst. RECOMMENDATION: Clinical Management Proceed with planned axillary lymph node dissection. Renal ultrasound is recommended for furt her evaluation of the possible right renal lesion. ASSESSMENT: BI-RADS: 2: Benign. Debbie Johansen APRN, C.N.P., M.S. 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 sodium chloride (PF) 0.9 % injection 1-1 00 mL Given 11/07/2021 8:25 PM CDT 20 mL 1-100 mL, intravenous, Once, On Surekha 11/07/21 at 1945, For 1 dose, Imaging Protocol Orders documented in this encounter
--- OUTSIDE RECORDS SUMMARY | 2022-04-03 11:28 | XMS_ITS | Encounter Summary ---
:1970 Author Organization [facility] Address [address] [place] [address] Care Team Providers Name Role Phone Unavailable Primary Care Provider Unavailable Reason for Visit Reason Comments Triage Triage From Surgery Surgery 11/12 Encounter Details Date Type Department Care Team Description 11/11/2021 Clinical Communication Department of Pam Kay (Triage From Oncology in Mayelin Marshall M.D. Surgery /Surgery [place], [address] [facility] 11/12) [place], [place] [address] [facility] [address] [place], [place] [phone] (Work) [phone] Social History Tobacco Use Types Packs/Day Years [...] or relatives? How often do you attend amish or More than 4 times per year 10/31/2021 mu-ism services? Do you belong to any clubs or No 10/31/2021 organizations such as amish groups, unions, fraternal or athletic groups, or [...]
--- OUTSIDE RECORDS SUMMARY | 2022-04-03 11:28 | XMS_ITS | Encounter Summary ---
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 - 11/07/2021 9:30 AM CDT SUBJECTIVE REQUESTING PROVIDER Debbie Johansen APRN, C.N.P., M.S. REASON FOR CONSULT Asked to see Mrs. Joceline Uribe by Debbie Johansen APRN, C.N.P., M.S. for consultation regarding the role of adjuvant radiotherapy for treatment of left breast cancer. Collaborating physician: Dr. Krishna ([phone]) HISTORY OF PRESENT ILLNESS Mrs. Joceline Uribe is a 51 y.o. woman with a recent diagnosis of left breast invasive ductal carcinoma. Her oncologic history is as follows: Oncology [...] carcinoma a. Lexy grade: II of III; Sheridan score: 7 of 9 b. Angio-lymphatic invasion: [...] with the [employer]ae 20 gene breast and SWIMMING COACH cancer panel. No genetic mutations. 04/25/2021 Surgery and Procedures Left breast lumpectomy and left axillary sentinel lymph node biopsy was performed by Dr. Katherine Hawthorne. A) LEFT BREAST, LUMPECTOMY: 1. Invasive ductal carcinoma a. Lexy grade 3; see comment b. 22 mm in greatest dimension 2. Breast Ancillary Testing: Performed on prior case [id number] a. Hormone Receptors: Estrogen receptor: Positive (96%, [...] of Lymph Nodes Examined: 6 Number of [place] Nodes Examined: 6 PATHOLOGIC STAGE CLASSIFICATION (pTNM, [...] an aromatase inhibitor. Follow-up in 3 months. 11/04/2021 - Radiation Therapy Radiation Therapy Treatment Details (Noted on 10/23/2021) Site: Left Breast Technique: 3D LINER CHECKER Goal: Curative Planned Treatment Start Date: 11/04/2021 Prior radiation therapy: No Prior cancer: no OBJECTIVE Wt 85.4 kg PHYSICAL EXAM ECOG score: 1 - Restricted in physically strenuous activity but ambulatory and able to carry out work of a light or sedentary nature General: A well appearing female sitting comfortably in clinic in no acute distress. ASSESSMENT / PLAN Diagnosis Overview 1. Malignant Neoplasm Of Breast Upper Outer Quadrant Female Left (HCC) - Primary Pathologic stage: T2, N2a Current treatment plan: discussion of axillary dissection and adjuvant radiotherapy It was a pleasure meeting with Mrs. Uribe and her today in clinic. They have previously meet with our colleagues in [place], who have recommended adjuvant radiotherapy, with the consideration for proton therapy. We reviewed her history, as well as the recommendations from the Breast Tumor board, which are to proceed with axillary dissection. Mrs. Uribe is agreeable with this, and she is meeting with our surgery team today and early next week. We reviewed that radiotherapy would start 5-6 weeks following surgery. We discussed proton therapy in comparison to x-ray based (photon) therapy. We discussed that this would be a way to spare more non-target breast tissue, as well as other non-target tissue, such as the heart and lungs. We reviewed that insurance coverage may be an issue, but with [employer] [place] we will likelyhave a good outcome. She notes she had some difficulty following simulation in [place] with some neck pain, and we might need to consider an option for arms down treatment, especially with the contralateral arm. I discussed the general sequence of appointments here in radiation oncology, including simulation, treatment planning, and daily treatment. We would standardly recommend approximately 5 weeks of daily treatment, but there may be an option for modest hypofractionation. I described both the acute and long-term potential side effects due to radiation. The acute side effects include fatigue and a localized skin reaction. I discussed that we would monitor her reactions weekly and recommend different moisturizing creams as her reaction progresses. Long-term side effects discussed include increased risk of cardiovascular disease and radiation pneumonitis. At this time, we have not set orders for simulation. She will be undergoing surgery next, and we anticipate that her surgical team will contact us when she has completed surgery. All patient and family questions were answered to the best of my ability. We are available should questions or concerns arise in the interim. Please see Dr. Krishna's note for further physical exam, discussion, and plan details. I personally spent 40 minutes in care of the patient today. Time includes both non face to face and face to face patient care. EDUCATION Ready to learn, no apparent learning barriers were identified. Signed by: Teetee De La Rosa P.A.-C. 11/07/2021 9:30 AM CDT Associated attestation - Nader Krishna M.D. - 11/08/2021 10:13 AM CDT I saw and evaluated the patient and participated in the light portions of the service. I reviewed the documentation of Teetee De La Rosa and agree with the findings and plan. Mrs. Uribe is a very pleasant 51-year-old referred by Dr. Moraes and Dr. Smith for a discussion regarding axillary management and proton therapy for regionally advanced left breast cancer. Her medical history is notable for cervical spinal injury which impacts her ambulation and right upper extremity range of motion. In addition, she has an extensive family history of breast cancer but negative genetic testing. Her history is well outlined by Mrs. De La Rosa and Dr. Moraes. Briefly, she presented with left breast changes. Diagnostic imaging revealed a 2.6 cm mass at the 2:00 position of the left breast. A biopsy revealed grade 2 invasive ductal carcinoma, ER+, ND+, HER2-. A lumpectomy was performed on 04/25/2021 with final pathology revealing grade 3 invasive ductal carcinoma measuring 2.2 cm. 5 of 6 nodes excised were involved. She began adjuvant AC and T chemotherapy on 06/07/2021 and underwent a PET/CT scan for staging on 06/18/2021which revealed multiple hypermetabolic residual left axillary nodes. She completed AC and 7 cycles of T (stopped for neuropathy). She was seen by Dr. Moraes and Dr. Smith who referred her to the multidisciplinary team in [place] for further management recommendations. Her case was discussed at tumor board and axillary dissection followed by breast and gisell radiation was recommended. On physical exam is a well-appearing female sitting comfortably in clinic in no acute distress. She ambulates with bilateral canes. The lumpectomy and axillary incisions are healing well. No concerninglesions or masses in either breast or axilla. She does have a compression sleeve on the left arm. We had a long discussion regarding the diagnosis, natural history, and treatment of breast cancer. She has a breast MRI scheduled for later today to rule out any residual breast disease and will be seeing Dr. Berger next week to discuss next steps in terms of surgical management. I explained that lookforward to seeing her back postoperatively for further discussion of treatment options. At that timeI will know the response to systemic therapy which is highly prognostic. She may be an excellent candidate for pencil beam scanning proton therapy to minimize exposure to the heart, lungs, and contralateral breast. This may be especially helpful given the patient's decreased range of motion as result v ersus cord injury although she may be able to tolerate her left arm being up provided her right arm to be down. We also discussed potential pros and cons of conventional versus hypofractionated therapyat that time in the context of her neuropathy. All questions were answered to the best my abilities.I look forward to seeing the patient back in the weeks ahead postoperatively for final treatment recommendations. She knows to contact me at any point in the interim should questions or concerns arise. 60 minutes were spent care this patient today. This includes both diir-ns-ictz and non hqgu-jw-ivuy patient care. 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
--- OUTSIDE RECORDS SUMMARY | 2022-04-03 11:28 | XMS_ITS | Encounter Summary ---
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 [address] [place] [phone] Referral ID Status Reason Start Date Expiration Date Visits Requ ested Visits Authorized [id number] Closed 10/25/2021 10/25/2022 1 1 Encounter Details Date Type Department Care Team Description 11/07/2021 Comprehensive Visit Department of Physical Debbie Johansen APRN, James.Jose.Joanna., M.S. 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 Do you belong to any clubs [...] documented as of this encounter Consult Notes Alyce Lau P.T., Dennis.T., ABPTS-ONC - 11/07/2021 1:00 PM CDT Physical Therapy Lymphedema Outpatient Evaluation and Treatment By co-signing this note, the provider certifies the therapy being provided to this patient is reasonable and necessary for the diagnosis or treatment of this patient. Patient's Name: Joceline Macysedrick Uribe Referring Provider: Debbie Johansen APRN C.N.P., M.S. Rehab Diagnosis: 1. Malignant Neoplasm Of Breast Female Left (HCC) 2. 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 She anticipates ALNDin the near future, no scheduled surgery date. She also anticipates adjuvant radiation. Patient has a medical history of cervical spinal cord injury with quadriplegia in 2017 and chemotherapy induced peripheral neuropathy. Onset Date: 11/07/21 Payor: [employer] CROSS BLUE SHIELD / Plan: [employer] [place] [employer] ADVANTAGE SEGIP / Product Type: HMO / Total Visit Count: Visit count could not be calculated. Make sure you are using a visit which is associated with an episode. SUBJECTIVE Joceline Uribe is a 51 y.o. female who presents to therapy for evaluation and treatment for ALND pre op. Her symptoms consist of baseline measurements, lymphedema education. Activity and Prior Treatment Exercise/Activity Level: has been completing 6,800 to 10,000 steps daily though on days she is fatigued from chemotherapy will achieve 2,500 steps. has been completing wall slides in flexion/abduction and standing shoulder flexion with dowel daily Current Home Program: local therapy 1 time weekly for 1 hour MANUAL LYMPHATIC DRAINAGE session whichhas decreased heaviness and fullness and decreased cording, daughter has learned massage as well, wears 15-30mmHg compression sleeve and gauntlet during the daytime for 3.5 weeks that has also decreaseupper extremity fullness. 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 Has been receiving lymphedema therapy locally (Eileen Deras). Her left upper extremity at one time felt heavy and full, with axillary cording as well which was painful. Overall her upper extremity has been improving. She continues to see her local therapist 1 time weekly. Patient/Caregiver Goals: pre op assessment PT Next Certification Date: 02/05/22 PERTINENT MEDICAL / SURGICAL HISTORY: Patient Active Problem List Diagnosis ??? Malignant Neoplasm Of Breast Upper Outer Quadrant Female Left (HCC) Past Surgical History: Procedure Laterality Date ??? CERVICAL FUSION ??? HYSTERECTOMY ??? LUMPECTOMY BREAST WITH SENTINEL NODE BIOPSY Left 04/25/2021 ??? OTHER lymphatic sac surgery for Meniere's ??? TONSILLECTOMY OBJECTIVE PHYSICAL EXAM Fall Risk Screening: Fall in the last 12 months: Yes Did you have an injury with the fall?: No Fall Risk Comments: May 2021 she started chemotherapy and this increased the frequency of falling, 5-6 falls since starting chemotherapy Lymphedema/Edema Eval: Range of motion: Within functional limits bilaterally Sensation: Neuropathy throughout hands and feet Edema: No pitting or peau de orange Patient does wear a compression sleeve and gauntlet in the left upper extremity, which has addressedthe lymphedema. upper extremity fairly symmetrical as per 10cm measurements and clinical examination Observations: Appreciate veins symmetrical throughout upper extremity Small axillary cording in the left axilla with upper extremity at end range, not limiting range of motion though Functional Mobility: Travels to department via wheelchair, ambulates with bilateral forearm crutches Right Upper Extremity 11/07/2021 10 cm 17.2 20 cm 15.4 30 cm 23 40 cm 23.8 50 cm 30.4 60 cm 31.9 Lymph Volume (L) 2304.17 ml Left Upper Extremity 11/07/2021 10 cm 17.3 20 cm 15.8 30 cm 23.4 40 cm 23.2 50 cm 29 60 cm 30.8 Lymph Volume (L) 2215.58 ml TREATMENT Therapeutic activity: UE Lymphedema Education Provided: Patient has previously been treated for lymphedema, this she does have extensive knowledge of the lymphatic system. We reviewed in brief: Reviewed the anatomy and function of the lymphatic system and how disruption due to surgery or radiation can impair lymphatic drainage from the affected arm and adjacent area of the chest and back. Instructed the patient to avoid any circumstance that could potentially increase demand to the lymphatic system such as acute trauma or injuries, excessive heat, overuse injury, or infection. Cautioned patient regarding the increased risk for cellulitis infection on the affected extremity and adjacent chest and back. Advised avoidance of any open cuts, wounds, or insect bites; and meticulous skin care if any occur. Described the appearance of a cellulitis infection and the steps to take if suspected in order to expedite potential treatment with antibiotics. Discussed how to identify lymphedema by inspecting not just the size of the limb, but also the texture and/or presence of pitting edema. Reviewed how therapy involvement following surgery will assist with lymphedema surveillance, shoulder rehabilitation, and exercise recommendations. Explained how following surgery a drain will most likely be in place, and exercise to the shoulder will be reviewed when the patient returns for their one week post-operative visit. Provided the patient with a follow up appointment and my contact information in case there are any further questions. Reviewed the importance of aerobic exercise for treating cancer-related fatigue and improving health-related quality of life. Encouraged her to complete 30 minutes exercise daily prior to surgery Advised that any exercise program that includes upper body strengthening be done gradually and increases intensity slowly. Patient with multiple appropriate questions during session. She will continue seeing her local therapist 1 time weekly until surgery. Advised her to defer any local therapy postoperatively given drain placement. Reviewed use of self release with dycem of the axillary cording. Patient and instructed in this use, and safety. Recommend she not complete this in the post operative setting or while drains are in place. She verbalized understanding. Home Exercise Program/Education: As above Contact monitoring: PPE used during therapy: Therapist was wearing the following PPE throughout entire session: surgicalmask Patient was wearing a mask during therapy session: yes Family member/caregiver present was wearing a mask: yes Assessment Joceline is a 51 year old female presenting pre op ALND. She does currently wear 15-30mmHg compression sleeve and glauntlet on the left upper extremity due to lymphedema. She also demonstrates small cording currently as well in the left axilla, though this does not interfere with range of motion. Baseline measurements obtain, reviewed lymphedema education and ongoing plan of care. Will follow up post operatively. Rehab Potential: Ms. Uribe has good potential to achieve established physical therapy therapy goalswithin the time frame outlined below, provided she actively participates in her physical therapy therapy treatment plan and home program. Complicating Factors: Comorbid Conditions: Cancer, Neurodegenerative disorder Personal Factors: Balance impairment Number of Examination Elements (PT): 4+ Clinical Presentation (PT): Evolving Clinical Decision Making (PT): Moderate Functional Goals and Timeframes: Goal #1: Patient will be independent with this effective lymphedema management plan. Goal #1 Date: 02/05/22 Goal #2: Patient will demonstrate full and symmetric shoulder range of motion to complete activitiesof daily living pain free and in preparation for radiation Goal #2 Date: 02/05/22 The severity of Ms. Uribe's functional limitation will be re-assessed within the next 1 visits. Plan Ms. Uribe was educated regarding [...] Treatment Plan: Start of Plan of Care: 11/07/2021 Number of Visits: up to 10 visits Frequency: Follow-up visit only Plan: Plan of care initiated Plan Comments: Will follow up in post operative setting. To complete 10cm measurements, review rangeof motion home exercise program. Treatment interventions may include: Therapeutic exercise, Therapeutic functional activity, Self-care/home management Lymph Recommendations: Daytime Compression Program: Gauntlet, Arm sleeve 15-30mmHg PT: Time Spent with Patient Evaluations PT Eval - Mod Complexity: 12 min Therapeutic Interventions Therapeutic Activity (min): 18 min Time Tracking Total Timed Units (min): 18 min Total Treatment Time (min): 30 min Alyce Lau P.T., D.P.T., ABPTS-ONC documented in this encounter Plan of Treatment Not on filedocumented as of this encounter Visit Diagnoses Diagnosis Malignant Neoplasm Of Breast Female Left (HCC) 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
--- OUTSIDE RECORDS SUMMARY | 2022-04-03 11:28 | XMS_ITS | Encounter Summary ---
:1970 Author Organization [facility] Address [address] [place] [address] Care Team Providers Name Role Phone Unavailable Primary Care Provider Unavailable Encounter Details Date Type Department Care Team Description 11/07/2021 Orders Only Division of Hepatobiliary Roberto Gleason and Pancreas Surgery in [place], [place] [address] [place] [phone] Social History Tobacco Use Types Packs/Day [...] or relatives? How often do you attend sabianism or More than 4 times per year 10/31/2021 jew services? Do you belong to any clubs or No 10/31/2021 organizations such as sabianism groups, unions, fraternal or athletic groups, or [...]
--- OUTSIDE RECORDS SUMMARY | 2022-04-03 11:28 | XMS_ITS | Encounter Summary ---
:1970 Author Organization [facility] Address [address] [place] [address] Care Team Providers Name Role Phone Unavailable Primary Care Provider Unavailable Encounter Details Date Type Department Care Team Description 11/05/2021 Orders Only Division of Breast and Debbie Johansen, Malignant Neoplasm Of Breast Female Left (HCC) (Primary Dx); Melanoma Surgical CERTIFIED NOVELL ENGINEER, C.N.P., M.S. 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 How often do you attend spiritism or More than 4 times per year 10/31/2021 tenriism services? 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
--- OUTSIDE RECORDS SUMMARY | 2022-04-03 11:28 | XMS_ITS | Encounter Summary ---
:1970 Author Organization [facility] Address [address] [place] [address] Care Team Providers Name Role Phone Unavailable Primary Care Provider Unavailable Encounter Details Date Type Department Care Team Description 11/11/2021 Ancillary Procedure Department of Plastic and Reconstructive [...] 10/31/2021 organizations such as episcopalian groups, unions, fraternal or athletic groups, or [...] Diagnosis Comme nts PLASTIC AND RECON Routine 11/11/2021 12:00 AM Res ults for this SURGERY IMAGE EXAM CDT procedure are in the results section. documented in this encounter Results Arms-Plastic And Recon Surgery Image Exam (11/11/2021 12:00 AM CDT) Specimen (Source) Anatomical Location Collection Method / Collectio n Time Received Time / Laterality Volume Narrative IIMS - 11/11/2021 4:40 PM CDT This order has been created [...]
--- OUTSIDE RECORDS SUMMARY | 2022-04-03 11:28 | XMS_ITS | Encounter Summary ---
:1970 Author Organization [facility] Address [address] [place] [address] Care Team Providers Name Role Phone Unavailable Primary Care Provider Unavailable Encounter Details Date Type Department Care Team Description 11/05/2021 Clinical Communication Department of Tyree Moraes, Radiation Oncology in [place], M.S. [facility] a 200 [facility] [address] [place] [phone] Social History Tobacco Use Types Packs/Day Years [...] or relatives? How often do you attend shinto or More than 4 times per year 10/31/2021 yarsanism services? Do you belong to any clubs or No 10/31/2021 organizations such as shinto groups, unions, fraternal or athletic groups, or [...] this encounter Miscellaneous Notes Telephone Encounter - Tyree Moraes M.D., M.S. - 11/05/2021 9:50 AM CDT Radiation Oncology 11/05/21 Joceline Uribe Phone Call: I spoke to the patient on the phone today. I reviewed the discussion from tumor board, namely the group consensus recommendation for further axillary surgery and consideration for proton radiotherapy. The patient has appointments over the next week for these purposes and is aware. All questions were answered to her satisfaction. Tyree Moraes M.D., M.S. documented in this encounter Plan of Treatment Not on filedocumented as of this encounter Visit Diagnoses Not on filedocumented in this encounter
--- OUTSIDE RECORDS SUMMARY | 2022-04-03 11:28 | XMS_ITS | Encounter Summary ---
:1970 Author Organization [facility] Address [address] [place] [address] Care Team Providers Name Role Phone Unavailable Primary Care Provider Unavailable Encounter Details Date Type Department Care Team Description 11/13/2021 Clinical Communication Division of Breast and Broussard, Samantha, Melanoma Surgical M.B.B.S., M.S. Oncology in [place], [facility] [address] [place], [place] [address] [facility] [address] [place], [place] [phone] (Work) [phone] Social History Tobacco Use Types Packs/Day Years [...] or relatives? How often do you attend moravian or More than 4 times per year 10/31/2021 yazidism services? Do you belong to any clubs or No 10/31/2021 organizations such as moravian groups, unions, fraternal or athletic groups, or [...] Encounter - Samantha Broussard M.B.B.S., M.S. - 11/13/2021 3:39 PM CDT I called Mrs. Uribe for a postoperative check up. She states that her pain is much better controlled than this morning. She has been taking Tylenol and Oxycodone as needed. Ibuprofen will be started when permissible by plastic surgery. She rewrapped her arm as the DAVE wrap was too tight, and now thather arm has been rewrapped her pain has much improved. Her bulb has not been working and has been clogged, and she has an appointment to see our PLS colleagues tomorrow. Denies any other issues. Tolerating PO intake postoperatively. We will call her again with the results for final pathology. documented in this encounter Plan of Treatment Not on filedocumented as of this encounter Visit Diagnoses Not on filedocumented in this encounter
--- OUTSIDE RECORDS SUMMARY | 2022-04-03 11:28 | XMS_ITS | Encounter Summary ---
:1970 Author Organization [facility] Address [address] [place] [phone] Care Team Providers Name Role Phone Unavailable Primary Care Provider Unavailable Reason for Referral Outpatient (Routine) - Closed Specialty Diagnoses / Procedures Referred By Contact Refer red To Contact Plastic Surgery Diagnoses Eber Saravia M.D. [facility] [address] [place] [phone] Referral ID Status Reason Start Date Expiration Date Visits Requ ested Visits Authorized [id number] Closed 10/25/2021 10/25/2022 1 1 Scheduling Instructions Per Julissa, she will see her tomorrow at 1pm. Encounter Details Date Type Department Care Team Description 11/13/2021 Clinical Communication Division of Plastic Eber Saravia, [facility] [address] [place] [phone] Social History Tobacco Use Types Packs/Day Years [...] More than 4 times per year 10/31/2021 gnosticism services? Do you belong to any clubs [...] encounter Miscellaneous Notes Telephone Encounter - Juliet Blanco, RYeN. - 11/13/2021 11:23 AM CDT SUBJECTIVE CHIEF COMPLAINT / REASON FOR CALL No chief complaint on file. Information Discussed I received a call from Joceline and her daughter today. They had number of questions and concerns including pain management, the bulb to the drain not holding suction, and compression. Joceline states that her pain was 10/10 last night, and was under the mistaken impression that she was not allowed to take oxycodone for the first 72 hours. I clarified that this refers to ibuprofen, and she is welcome to take the oxycodone when Tylenol alone does not manage her pain. I also did recommend she add ibuprofen to her scheduled medications after 72 hours as this has a synergistic effect withthe Tylenol. I provided instructions on the wrapping the compression and will make sure she has a follow-up visitwith the lymphedema clinic. I spoke with one of our mid-level providers who will be able to make time in her schedule to see Joecline tomorrow. In the meantime, she is advised to continue to compress the level to maintain suction until we see her tomorrow at 1. I will reach out to PMR to make sure she has a follow-up visit with the lymphedema clinic. PLAN Disposition/Recommendation: as above Information/Education: patient/caller able to teach back Caller agreeable to plan of care: yes The following references were used: nursing clinical judgement and provider Julissa Pandya PA-C documented in this encounter Plan of Treatment Scheduled Referrals Name Type Priority Associated Diagnoses Order S [facility] Plastic Surgery Outpatient Referral Routine Expec eduardo: office visit 11/14/2021, (clinic) Expires: 02/13/2023 documented as of this encounter Visit Diagnoses Not on filedocumented in this encounter
--- OUTSIDE RECORDS SUMMARY | 2022-04-03 11:28 | XMS_ITS | Encounter Summary ---
:[address] [facility] Address [address] [place] [address] Care Team Providers Name Role Phone Unavailable Primary Care Provider Unavailable Encounter Details Date Type Department Care Team Description 11/12/2021 Ancillary Procedure Department of Plastic and Reconstructive [...] Diagnosis Comme nts PLASTIC AND RECON Routine 11/12/2021 10:10 AM Res ults for this SURGERY IMAGE EXAM CDT procedure are in the results section. documented in this encounter Results MUSCLE-Plastic And Recon Surgery Image Exam (11/12/2021 10:10 AM CDT) Specimen (Source) Anatomical Location Collection Method / Collectio n Time Received Time / Laterality Volume Narrative IIMS - 11/13/2021 10:09 AM CDT This order has been created [...]
--- OUTSIDE RECORDS SUMMARY | 2022-04-03 11:28 | XMS_ITS | Encounter Summary ---
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 [phone] [facility] [phone] [place] [address] Social History Tobacco Use Types Packs/Day Years [...] Sign Reading Time Taken Comments Blood Pressure 123/63 11/12/2021 7:09 AM CDT Pulse 76 11/12/2021 7:09 AM CDT Temperature 36.5 ??C (97.7 ??F) 11/12/2021 7:09 AM CDT Respiratory Rate 16 11/12/2021 7:09 AM CDT Oxygen Saturation 98% 11/12/2021 7:09 AM CDT Inhaled Oxygen Concentration - - [...] Left (HCC) Breast Cancer Op Note: A international first officer actively participated and was necessary for one [...] Post left axillary lymph node dissection A international first officer actively participated and was necessary for one [...] nodes are submitted for permanent sections only. 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 Left (HCC) documented in this encounter Admitting Diagnoses Diagnosis [...] 6 hours bupivacaine liposome (PF) 20 mL, Given 11/12/2021 4:32 PM CDT 50 mL Other bupivacaine 30 mL 50 mL injection As needed, Starting on Thu11/12/21 at 1632, Intra-Op celecoxib capsule 400 mg (CeleBREX) Given 11/12/2021 9:52 AM CDT 400 mg 400 mg, oral, Once, On Thu11/12/21 at 1000, For 1 dose, Pre-Op, Preprocedure on unit with sips isosulfan blue 1 % injection (LYMPHAZURI N) Given 11/12/2021 11:10 AM CDT 3 mL Othe r As needed, Starting on Thu11/12/21 at 1110, Intra-Op lactated ringers Continued from OR 11/12/2021 4:55 [...] 1.5 mg to deliver 1 mg/72 hours. thrombin (human Given 11/12/2021 3:50 PM CDT 4 mL Other plasma)-vznaapkexj-dpyybacjw-Ov topical solution ([facility]) As needed, Starting on Thu11/12/21 at 1550, Intra-Op documented in this encounter Active and Recently Administered Medications Times are shown in CDT. Scheduled Medication Order 11/10/2021 11/11/2021 11/12/2021 acetaminophen tablet 1,000 mg (TYLENOL) (COMPLETED) 0952 (Given - Provider: Prudence Martin R.N.) 1,000 mg, oral, Once, On Thu11/12/21 at 1000, For 1 dose, Pre-Op, Preprocedure on unit with sips celecoxib capsule 400 mg (CeleBREX) (COMPLETED) 0952 (Given - Provider: Prudnece Martin R.N.) 400 mg, oral, Once, On Thu11/12/21 at 10 00, For 1 dose, Pre-Op, Preprocedure on unit with sips clindamycin in D5W IVPB 900 mg (CLEOCIN) (COMPLETED) 1113 (Given - Provider: Ramakrishna Lind APRN, KEYLA) 900 mg, intravenous, at 100 mL/hr, Admin ister over 30 Minutes, Once, On Thu11/12/21 at 1030, For 1 dose, Intra-Op, Indications: Prophylaxis, surgical fosaprepitant 150 mg in NaCl 0.9% (non-PVC) IVPB (EMEND) (COMPLE DARRYL) 1103 (New Bag - Provider: Ramakrishna Lind APRN, KEYLA)1639 (Stopped - Provider: Ramakrishna Lind APRN, KEYLA) 150 mg, intravenous, at 510 mL/hr, Admin ister over 30 Minutes, Once, On Thu11/12/21 at 1030, For 1 dose, Intra-Op, Incompatible with solutions containing divalent cations (calcium, magnesium) including lactated Ringer's solution. scopolamine base 1 mg over 3 days 1 patch (TRANSDERM SCOP) 1019 (Medication Applied - Provider: Prudence Martin R.N.)1942 (Due: Medication Removed - Provider: Discharge Provider, [...] thrombin (human plasma)-fibrinogen-aprot inin-Ca topical solution ([facility]) (CANCELED) 1550 (Given - Provid er: Eber Saravia M.D. - Comment: Left axilla) As needed, Starting on Thu11/12/21 at 1550, Intra-Op documented in this encounter
--- OUTSIDE RECORDS SUMMARY | 2022-04-03 11:29 | XMS_ITS | Encounter Summary ---
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 [address] [place] [address] Referral ID Status Reason Start Date Expiration Date Visits Requ ested Visits Authorized [id number] Closed 10/25/2021 10/25/2022 1 1 Scheduling Instructions Same day as visit with Debbie or Elen, sometime AFTER [employer] board on 11/05 Encounter Details Date Type Department Care Team Description 10/28/2021 Orders Only Division of Breast and Debbie Johansen, Malignant Neoplasm Of Breast Female Left (HCC) (Primary Dx); Melanoma Surgical Sarah CARROLL, M.S. 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 Sex Assigned at Date Recorded Female 10/31/2021 2:05 PM CDT documented as of this encounter Plan of Treatment Scheduled Referrals Name Type Priority Associated Diagnoses Order S [facility] Radiation Oncology Outpatient Referral Routine Malignant Neopl asm Expected: - Breast consult Of Breast Female 022 (clinic) Left (HCC) (Approximate), Secondary Malignant Expires: Neoplasm Lymph Node 01/29/20 23 Axilla And Upper Limb (HCC) General Surgery - Outpatient Referral Routine Malignant Neopla sm Expected: Breast consult Of Breast Female 2 (clinic) Left (HCC) (Approximate), Secondary Malignant Expires: Neoplasm Lymph Node 01/29/20 23 Axilla And Upper Limb (HCC) documented as of this encounter Visit Diagnoses Diagnosis Malignant Neoplasm Of Breast Female Left (HCC) - Primary 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
--- OUTSIDE RECORDS SUMMARY | 2022-04-03 11:29 | XMS_ITS | Encounter Summary ---
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 [address] [place] [address] Referral ID Status Reason Start Date Expiration Date Visits Requ ested Visits Authorized [id number] Closed 10/31/2021 10/31/2022 1 1 Encounter Details Date Type Department Care Team Description 10/31/2021 Orders Only Division of Breast and Debbie Johansen, Malignant Neoplasm Of Breast Female Left (HCC) (Primary Dx); Melanoma Surgical CARLY, C.N.P., M.S. 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) Oncology in [place], [address] [place], [place] 200 [facility] [address] [place], [place] [phone] (Work) [phone] Social History Tobacco Use Types Packs/Day Years [...] on filedocumented as of this encounter Results MR Breast Bilateral without and with IV Contrast (11/07/2021 8:35 PM CDT) Anatomical Region Laterality Modality Breast, Breast Imaging RST LOS, Breast Imaging ARZ Nikki TAYLOR Magnetic Resonance Breast Imaging FLA [facility] Specimen (Source) Anatomical Collection Method Collection [...] FINDINGS: RIGHT BREAST: ??No MRI findings of malig ene in the right breast. 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
--- OUTSIDE RECORDS SUMMARY | 2022-04-03 11:29 | XMS_ITS | Encounter Summary ---
:1970 Author Organization [facility] Address [address] [place] [address] Care Team Providers Name Role Phone Unavailable Primary Care Provider Unavailable Encounter Details Date Type Department Care Team Description 10/28/2021 Orders Only Department of Fritz Smith eoplasm Of Radiation Oncology in [place] Breast Upper Outer [place], [facility] a [address] [facility] Quadrant Female Left [address] [place], [place] (HCC) (Primary Dx) [place] [phone] Social History Tobacco Use Types Packs/Day Years [...] More than 4 times per year 10/31/2021 [employer]? Do you belong to any clubs [...] or slept in a long-term (including now)? Sex Assigned at Date Recorded Female 10/31/2021 2:05 PM CDT documented as of this encounter Plan of Treatment Not on filedocumented as of this encounter Results Interpretation of Outside NM PET Scan (10/28/2021 8:04 PM CDT) Anatomical Region Laterality Modality Nuclear Medicine PET RST LOS, Nuclear Medicine ARZ LOS, N/A Nuclear Medicine Nuclear Medicine FLA LOS, Nuclear Medicine, Other, Neuroradiology ARZ LOS, Neuroradiology FLA LOS, Neuroradiology RST [facility] Specimen (Source) Anatomical Collection Method Collection Time Re ceived Time Location / / Volume Laterality 10/30/2021 9:10 AM CDT Impressions 10/30/2021 10:21 AM CDT 1. ??Interval response of the left axillary FDG avid gisell metastasis with no evidence of FDG avid recurrence or metastatic disease. 2. ??Resolution of prior focal left adne xal FDG uptake. Narrative 10/30/2021 10:21 AM CDT REVISED REPORT: EXAM: ??INTERPRETATION OF OUTSIDE NM PET SCAN dated 10/08/2021.. TECHNIQUE: ??F-18 Fluorodeoxyglucose (FD G) PET/CT scan was performed from the orbits through the thighs with CT fusion imaging for attenu ation correction and anatomic coregistration only. COMPARISON: ??Outside PET/CT 06/18/2021. INDICATION: Restaging metastatic breast cancer. 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 ??Subsequent treatment str ategy. FINDINGS: ?? New postoperative changes in the left ax illa with surgical resection of prior hypermetabolic nodes. No suspicious hypermetabolic lymph nodes /lymphadenopathy. Mild uptake at the evolving left outer b reast lumpectomy site (image 94). No focal increased FDG uptake to suggest local recurrence. No evidence of FDG avid osseous metastat ic disease. Normalization of the left adnexal uptake . Reactive/inflammatory muscle uptake in t he right shoulder (image 59). Incidental findings on unenhanced CT fus ed images: Right IJ Port-A-Cath with tip in the right atrium. 4 mm node in the left lower lobe (image 100) is too small to further characterize on PET images. Left renal cyst. Hysterectomy. Procedure Note Allan Dubose M.D. - 10/31/2021For matting of this note might be different from the original. REVISED REPORT: EXAM: INTERPRETATION OF OUTSIDE NM PET S CAN dated 10/08/2021.. TECHNIQUE: F-18 Fluorodeoxyglucose (FDG) PET/CT scan was performed from the orbits through the thighs with CT fusion imaging for attenu ation correction and anatomic coregistration only. COMPARISON: Outside PET/CT 06/18/2021. INDICATION: Restaging metastatic breast cancer. 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 Subsequent treatment strat egy. FINDINGS: New postoperative changes in the left ax illa with surgical resection of prior hypermetabolic nodes. No suspicious hypermetabolic lymph nodes /lymphadenopathy. Mild uptake at the evolving left outer b reast lumpectomy site (image 94). No focal increased FDG uptake to suggest local recurrence. No evidence of FDG avid osseous metastat ic disease. Normalization of the left adnexal uptake . Reactive/inflammatory muscle uptake in t he right shoulder (image 59). Incidental findings on unenhanced CT fus ed images: Right IJ Port-A-Cath with tip in the right atrium. 4 mm node in the left lower lobe (image 100) is too small to further characterize on PET images. Left renal cyst. Hysterectomy. IMPRESSION: 1. Interval response of the left axillar y FDG avid gisell metastasis with no evidence of FDG avid recurrence or metastatic disease. 2. Resolution of prior focal left adnexa l FDG uptake. Fritz Smith M.D. [facility] [place] PROCEDURES Pathology Review of Outside Material (03/19/2021 2:00 PM CDT) Component Value Ref Test Analysis Performed Pathologis t Range Method Time At Signature 11/04/2021 DTL 11:03 AM CDT Report Joceline Walls M.D. 11/04/2021 DTL electronically 11:03 AM signed by CDT I verify that I have examined all relevant slides/materials for the specimen(s) and rendered or confirmed the diagnosis. Material A. [id number]: Left breast, left axilla 11/04/2021 DTL Received ? 10 stained slides 11:03 AM B. [id number]: Left breast CDT ? 34 stained slides C. [id number]: Right breast, right axilla ? 15 stained slides D. [id number]: Left breast ? 3 stained slides Interpretation FINAL DIAGNOSIS 11/04/2021 DTL 11:03 AM Breast and lymph node, core biopsies ([id number]; CDT 03/19/2021): A. ??Breast, left 2:00, 11 cm from nipple: ??Invasive ductal carcinoma, Revere grade II (of III). B. ??Lymph node, left axilla: ??Benign lymph node, negative for metastatic carcinoma. Immunoperoxidase stains were performed by the referring institution and reviewed at [facility] (block A1). Estrogen Receptor: Positive, 91-100% tumor nuclei staining. The average intensity of the positively staining tumor nuclei is strong. Progesterone Receptor: Positive, 71-80% tumor nuclei staining. ??The average intensity of the positively staining tumor nuclei is moderate. HER2 protein overexpression is equivocal, score of 2+. HER2 FISH, performed by the outside laboratory, per report: HER2 FISH negative (HER2/CEP17 ratio: ??1.05; HER2 signals/cell: ??2.76; CEP17 signals/cell: ??2.64). Breasts and lymph nodes ([id number]; 04/25/2021): A. ??Breast, left, lumpectomy: ??Invasive ductal carcinoma, Lexy grade III (of III), [tubules 3/3, nuclei 3/3, mitoses 2/3; Revere score 8/9], 22 mm in greatest dimension (size per report). 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 ??Negative for extensive intraductal component. Lymphovascular invasion present. ??Invasive carcinoma is less than 1 mm from posterior margin, after re-excision of the inferior lateral margin (part C), per report. ??DCIS is less than 1 mm from posterior margin, after re-excision of the inferior lateral margin (part C), per report. Microcalcifications present in nonneoplastic tissue. B. ??Lymph nodes, left breast sentinel, biopsy: ??Multiple ( 5 of 6) lymph nodes are positive for metastatic carcinoma, including 4 macrometastasis and 1 micrometastasis. ??Largest metastatic deposit measures 11 mm. ??Extranodal extension present, 3 mm. C. ??Breast, inferior lateral margin, re-excision: ??Invasiv e ductal carcinoma, 4 mm in greatest dimension. ??Ductal carcinoma in situ. ??Invasive carcinoma is 3 mm from the inferior margin. ??DCIS is 5 mm from the inferior margin. Immunoperoxidase stains were performed by the referring institution and reviewed at [facility]. HER2 protein overexpression is negative, score of 1+ (block B8). Ki-67: ??14% (block A3). Lymph node, right axilla, core biopsy ([id number]; 06/05/2021): ?? Reactive lymphoid hyperplasia, negative for metastatic carcinoma. Immunoperoxidase stains were performed by the referring institution and reviewed at [facility] (block A1). ??CD3 and CD5 positive T-cells and CD20 positive B-cells are present in the normal physiologic distribution. ??CD10 and BCL6 highlight reactive germinal centers that are negative for BCL2 and have normal staining pattern for Ki-67. ??CD21 and CD23 highlight follicular dendritic cell meshworks associated with follicles. ??There is no aberrant coexpression of CD5 or cyclin D1 by the B-cells. Specimen Anatomical Collection Method Collection Time Receive d Time (Source) Location / / Volume Laterality Varies 03/19/2021 2:00 PM 2 9:07 CDT AM CDT Narrative This result has an attachment that is no t available. Fritz Smith M.D. LAB SURG PATH ORDERABLES Performing Organization Address City/State/ZIP Code Phon e Number [facility] - [address] [place], [place] [address] [facility] [place] [address] [facility] [address] documented in this encounter Visit Diagnoses Diagnosis Malignant Neoplasm Of Breast Upper Outer Quadrant Female Left (HCC) - Primary Malignant Neoplasm Of Breast Upper Outer Quadrant Female Left (HCC) documented in this encounter
--- OUTSIDE RECORDS SUMMARY | 2022-04-03 11:29 | XMS_ITS | Encounter Summary ---
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 Do you belong to any clubs [...] or slept in a halfway (including now)? Sex Assigned at Date Recorded Female 10/31/2021 2:05 PM CDT documented as of this encounter Plan of Treatment Not on filedocumented as of this encounter Procedures Procedure Name Priority Date/Time Associated Comments Diagnosis INTERPRETATION OF RAD - Routine 10/29/2021 2:37 Malignant Result s for OUTSIDE BREAST (most inpatients PM CDT Neoplasm Of this proc edure IMAGING and all Breast Female are in the outpatients) Left (HCC) results Secondary section. 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 Patient with biopsy-proven left breast carcinoma status post lumpectomy left axillary dissection. Axillary dissection demonstrated metasta tic adenopathy. Please note the preoperative MRI demonstrated at least 8 rounded axillary lymph nodes. 2. Small mass versus prominent focus of enhancement immediately adjacent to the biopsy-proven mass noted on preoperative MRI. This may repr esent an area of benign enhancement may represent a small satellite lesion. Repeat evaluation with MRI may be of value if it would meter changes records clerk. 3. Prominent rounded right axillary lymp h node noted on preoperative MRI was sampled on ultrasound-guided biopsy dated 2. This demonstrated benign histology. Repeat evaluation of this can be obtained as clinically warra nted. Narrative 10/30/2021 8:32 AM CDT EXAM: ??INTERPRETATION OF OUTSIDE MR BREAST, INTERPRETATION OF OUTSIDE BREAST IMAGING, INTERPRETATION OF OUTSIDE BREAST IMAGING HISTORY/INDICATION: ??Left breast malign carlos DENSITY: ??d. The breast(s) are extremel y dense, which lowers the sensitivity of mammography. FINDINGS: ?? Right breast: Most recent mammogram subm itted for review is dated 03/15/2021 and includes Tomosynthesis views. No mass, distortion or suspicious calcifications. Breast MRI 04/24/2021 is interpreted wit hout benefit of CAD. Within the upper inner breast posterior depth approximately 1 to 2 o'clock posit ion there is a 1.4 x 0.8 cm well-circumscribed enhancing mass which contains intrinsic T2 signal. There is a nonenhancing septation. 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 Outside report states that this mass is unchanged since the prior 2010 MRI and corresponds to a fibroadeno ma. Additional multiple scattered cysts of varying sizes and composition. There is a single rounded a xillary lymph node which does not demonstrate definite fatty hilum (axial image 20). Right axillary ultrasound on 05/23/2021 d emonstrates a lymph node which demonstrates focal cortical thickening measuring between 0.4 and 0.5 cm. Patient underwent lymph node biopsy on 0 06/05/2021. Submitted images demonstrates targeting of one of the lymph nodes [facility] interpretation of outside hi stology is not available at the time of this interpretation. Outside histology report states that the sampled right axillary lymph node demonstrates reactive change and was negative for metastatic d isease. Left breast: Most recent mammogram submi tted for review is dated 03/15/2021 includes Tomosynthesis views. BB marker overlies an area of pal pable concern. In this region at posterior depth, there is a partially obscured mass with associated architectural distortion. This area of concern persists on additional spot compression views. Withi n the axilla there is a prominent asymmetric lymph node. Left breast ultrasound: Sonographic eval uation at the area of mammographic concern demonstrates a 2.6 x ??2.2 x 1.5 cm irregular hypoechoi c mass with angular margins peripheral halo internal vascularity. Static images of the axilla demonstrate numerous abnormal-appearing lymph nodes. The largest one demonstrates lack of normal fatty hilum and measures up to 1 cm in greatest cortical thickness. Additional adjacent lymph nod es demonstrate cortical thickening of up to 0.5 cm. Patient underwent ultrasound-guided biop sy on 03/19/2021. Submitted images demonstrates adequate targeting and sampling of the mass. Dulce l image states that a clip was placed. Patient underwent left axillary core biopsy on the same da te. Submitted images demonstrates adequate targeting and sampling of one of the larger abnormal l ymph nodes. Postprocedural mammogram demonstrates pl acement of a circular total shaped clip within the sampled mass. No definite clip is visualized wit hin the sampled axillary lymph node. Per outside report a globe shaped clip was placed within the sampled lymph node but cannot be visualized mammographically. [facility] interpretation of outside hi stology is not available at the time of this interpretation. Outside pathology report states the samp led mass was consistent with invasive ductal carcinoma. This is malignant and concordant. The sampled axillary lymph node was negative for metastatic carcinoma which is benign in discordant given the lack of a normal fatty hilum on the original imaged lymph nodes. Breast MRI 03/25/2021 is interpreted wit hout benefit of CAD. Patient's biopsy-proven malignancy presents as a spiculated mass within the axillary tail measuring proximally 2.7 x 2.9 x 3 cm (axial postcontrast image 56). Mass contains gallegos sceptibility artifact from the clip placed at the time of biopsy. Masses located approximately 0.8 cm from the lateral skin margin and approximately 2 cm from the pectoralis muscle. Immediately anter ior and slightly (approximately 1.4 cm) superior to the mass there is a small enhancing mass measurin g up to 0.7 cm (sagittal reconstructed image 257and axial image 49). This may represent a benign f ocus of enhancement however given the proximity to the primary mass may represent a satellite l esion. There are at least 8 rounded ??left axil karly lymph nodes which are increased in number when compared to the contralateral axilla. Outside rep ort states that these lymph nodes are unchanged from 2010; however, the prior examination is not av ailable for review. Patient underwent ultrasound-guided wire localization on 04/25/2021. Submitted images demonstrates adequate targeting and localization of t he mass. Postprocedural mammogram demonstrates a Stem wire positioned within the mass. Specimen radiograph demonstrates the pre sence of the targeted mass, the circular clip, and wire. Per clinic note note during surgery was noted that 5 out of 6 left axillary sentinel lymph which were positive for metastatic disease. Debbie J Johansen MOLD SWABBER, C.N.P., M.S. IMG BI PROCEDURES Interpretation of Outside Breast Imaging (10/29/2021 2:37 PM CDT) Anatomical Region Laterality Modality Breast, Breast Imaging RST LOS, Breast Imaging ARZ LOS, [place] st N/A Mammography Imaging FLA LOS, Other Specimen (Source) Anatomical Collection Method Collection Time Re ceived Time Location / / Volume Laterality 10/30/2021 7:52 AM CDT Impressions 10/30/2021 8:32 AM CDT 1. Patient with biopsy-proven left breast carcinoma status post lumpectomy left axillary dissection. Axillary dissection demonstrated metasta tic adenopathy. Please note the preoperative MRI demonstrated at least 8 rounded axillary lymph nodes. 2. Small mass versus prominent focus of enhancement immediately adjacent to the biopsy-proven mass noted on preoperative MRI. This may repr esent an area of benign enhancement may represent a small satellite lesion. Repeat evaluation with MRI may be of value if it would meter changes records clerk. 3. Prominent rounded right axillary lymp h node noted on preoperative MRI was sampled on ultrasound-guided biopsy dated 2. This demonstrated benign histology. Repeat evaluation of this can be obtained as clinically warra nted. Narrative 10/30/2021 8:32 AM CDT EXAM: ??INTERPRETATION OF OUTSIDE MR BREAST, INTERPRETATION OF OUTSIDE BREAST IMAGING, INTERPRETATION OF OUTSIDE BREAST IMAGING HISTORY/INDICATION: ??Left breast malign carlos DENSITY: ??d. The breast(s) are extremel y dense, which lowers the sensitivity of mammography. FINDINGS: ?? Right breast: Most recent mammogram subm itted for review is dated 03/15/2021 and includes Tomosynthesis views. No mass, distortion or suspicious calcifications. Breast MRI 04/24/2021 is interpreted wit hout benefit of CAD. Within the upper inner breast posterior depth approximately 1 to 2 o'clock posit ion there is a 1.4 x 0.8 cm well-circumscribed enhancing mass which contains intrinsic T2 signal. There is a nonenhancing septation. 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 Outside report states that this mass is unchanged since the prior 2010 MRI and corresponds to a fibroadeno ma. Additional multiple scattered cysts of varying sizes and composition. There is a single rounded a xillary lymph node which does not demonstrate definite fatty hilum (axial image 20). Right axillary ultrasound on 05/23/2021 d emonstrates a lymph node which demonstrates focal cortical thickening measuring between 0.4 and 0.5 cm. Patient underwent lymph node biopsy on 0 06/05/2021. Submitted images demonstrates targeting of one of the lymph nodes [facility] interpretation of outside hi stology is not available at the time of this interpretation. Outside histology report states that the sampled right axillary lymph node demonstrates reactive change and was negative for metastatic d isease. Left breast: Most recent mammogram submi tted for review is dated 03/15/2021 includes Tomosynthesis views. BB marker overlies an area of pal pable concern. In this region at posterior depth, there is a partially obscured mass with associated architectural distortion. This area of concern persists on additional spot compression views. Withi n the axilla there is a prominent asymmetric lymph node. Left breast ultrasound: Sonographic eval uation at the area of mammographic concern demonstrates a 2.6 x ??2.2 x 1.5 cm irregular hypoechoi c mass with angular margins peripheral halo internal vascularity. Static images of the axilla demonstrate numerous abnormal-appearing lymph nodes. The largest one demonstrates lack of normal fatty hilum and measures up to 1 cm in greatest cortical thickness. Additional adjacent lymph nod es demonstrate cortical thickening of up to 0.5 cm. Patient underwent ultrasound-guided biop sy on 03/19/2021. Submitted images demonstrates adequate targeting and sampling of the mass. Dulce l image states that a clip was placed. Patient underwent left axillary core biopsy on the same da te. Submitted images demonstrates adequate targeting and sampling of one of the larger abnormal l ymph nodes. Postprocedural mammogram demonstrates pl acement of a circular total shaped clip within the sampled mass. No definite clip is visualized wit hin the sampled axillary lymph node. Per outside report a globe shaped clip was placed within the sampled lymph node but cannot be visualized mammographically. [facility] interpretation of outside hi stology is not available at the time of this interpretation. [facility] carcinoma. This is malignant and concordant. The sampled axillary lymph node was negative for metastatic carcinoma which is benign in discordant given the lack of a normal fatty hilum on the original imaged lymph nodes. Breast MRI 03/25/2021 is interpreted wit hout benefit of CAD. Patient's biopsy-proven malignancy presents as a spiculated mass within the axillary tail measuring proximally 2.7 x 2.9 x 3 cm (axial postcontrast image 56). Mass contains gallegos sceptibility artifact from the clip placed at the time of biopsy. Masses located approximately 0.8 cm from the lateral skin margin and approximately 2 cm from the pectoralis muscle. Immediately anter ior and slightly (approximately 1.4 cm) superior to the mass there is a small enhancing mass measurin g up to 0.7 cm (sagittal reconstructed image 257and axial image 49). This may represent a benign f ocus of enhancement however given the proximity to the primary mass may represent a satellite l esion. There are at least 8 rounded ??left axil karly lymph nodes which are increased in number when compared to the contralateral axilla. Outside rep ort states that these lymph nodes are unchanged from 2010; however, the prior examination is not av ailable for review. Patient underwent ultrasound-guided wire localization on 04/25/2021. Submitted images demonstrates adequate targeting and localization of t he mass. Postprocedural mammogram demonstrates a Stem wire positioned within the mass. Specimen radiograph demonstrates the pre sence of the targeted mass, the circular clip, and wire. Per clinic note note during surgery was noted that 5 out of 6 left axillary sentinel lymph which were positive for metastatic disease. Rosalba Mckinney APRNNChau., M.S. IMG BI PROCEDURES Interpretation of Outside MR Breast (10/29/2021 2:36 PM CDT) Anatomical Region Laterality Modality Breast, Breast Imaging RST LOS, Breast Imaging ARZ LOS, [place] st N/A Mammography Imaging FLA LOS, Other Specimen (Source) Anatomical Collection Method Collection Time Re ceived Time Location / / Volume Laterality 10/30/2021 7:52 AM CDT Impressions 10/30/2021 8:32 AM CDT 1. Patient with biopsy-proven left breast carcinoma status post lumpectomy left axillary dissection. Axillary dissection demonstrated metasta tic adenopathy. Please note the preoperative MRI demonstrated at least 8 rounded axillary lymph nodes. 2. Small mass versus prominent focus of enhancement immediately adjacent to the biopsy-proven mass noted on preoperative MRI. This may repr esent an area of benign enhancement may represent a small satellite lesion. Repeat evaluation with MRI may be of value if it would meter changes records clerk. 3. Prominent rounded right axillary lymp h node noted on preoperative MRI was sampled on ultrasound-guided biopsy dated 2. This demonstrated benign histology. Repeat evaluation of this can be obtained as clinically warra nted. Narrative 10/30/2021 8:32 AM CDT EXAM: ??INTERPRETATION OF OUTSIDE MR BREAST, INTERPRETATION OF OUTSIDE BREAST IMAGING, INTERPRETATION OF OUTSIDE BREAST IMAGING HISTORY/INDICATION: ??Left breast malign carlos DENSITY: ??d. The breast(s) are extremel y dense, which lowers the sensitivity of mammography. FINDINGS: ?? Right breast: Most recent mammogram subm itted for review is dated 03/15/2021 and includes Tomosynthesis views. No mass, distortion or suspicious calcifications. Breast MRI 04/24/2021 is interpreted wit hout benefit of CAD. Within the upper inner breast posterior depth approximately 1 to 2 o'clock posit ion there is a 1.4 x 0.8 cm well-circumscribed enhancing mass which contains intrinsic T2 signal. There is a nonenhancing septation. 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 Outside report states that this mass is unchanged since the prior 2010 MRI and corresponds to a fibroadeno ma. Additional multiple scattered cysts of varying sizes and composition. There is a single rounded a xillary lymph node which does not demonstrate definite fatty hilum (axial image 20). Right axillary ultrasound on 05/23/2021 d emonstrates a lymph node which demonstrates focal cortical thickening measuring between 0.4 and 0.5 cm. Patient underwent lymph node biopsy on 0 06/05/2021. Submitted images demonstrates targeting of one of the lymph nodes [facility] interpretation of outside hi stology is not available at the time of this interpretation. Outside histology report states that the sampled right axillary lymph node demonstrates reactive change and was negative for metastatic d isease. Left breast: Most recent mammogram submi tted for review is dated 03/15/2021 includes Tomosynthesis views. BB marker overlies an area of pal pable concern. In this region at posterior depth, there is a partially obscured mass with associated architectural distortion. This area of concern persists on additional spot compression views. Withi n the axilla there is a prominent asymmetric lymph node. Left breast ultrasound: Sonographic eval uation at the area of mammographic concern demonstrates a 2.6 x ??2.2 x 1.5 cm irregular hypoechoi c mass with angular margins peripheral halo internal vascularity. Static images of the axilla demonstrate numerous abnormal-appearing lymph nodes. The largest one demonstrates lack of normal fatty hilum and measures up to 1 cm in greatest cortical thickness. Additional adjacent lymph nod es demonstrate cortical thickening of up to 0.5 cm. Patient underwent ultrasound-guided biop sy on 03/19/2021. Submitted images demonstrates adequate targeting and sampling of the mass. Dulce l image states that a clip was placed. Patient underwent left axillary core biopsy on the same da te. Submitted images demonstrates adequate targeting and sampling of one of the larger abnormal l ymph nodes. Postprocedural mammogram demonstrates pl acement of a circular total shaped clip within the sampled mass. No definite clip is visualized wit hin the sampled axillary lymph node. Per outside report a globe shaped clip was placed within the sampled lymph node but cannot be visualized mammographically. [facility] interpretation of outside hi stology is not available at the time of this interpretation. Outside pathology report states the samp led mass was consistent with invasive ductal carcinoma. This is malignant and concordant. The sampled axillary lymph node was negative for metastatic carcinoma which is benign in discordant given the lack of a normal fatty hilum on the original imaged lymph nodes. Breast MRI 03/25/2021 is interpreted wit hout benefit of CAD. Patient's biopsy-proven malignancy presents as a spiculated mass within the axillary tail measuring proximally 2.7 x 2.9 x 3 cm (axial postcontrast image 56). Mass contains gallegos sceptibility artifact from the clip placed at the time of biopsy. Masses located approximately 0.8 cm from the lateral skin margin and approximately 2 cm from the pectoralis muscle. Immediately anter ior and slightly (approximately 1.4 cm) superior to the mass there is a small enhancing mass measurin g up to 0.7 cm (sagittal reconstructed image 257and axial image 49). This may represent a benign f ocus of enhancement however given the proximity to the primary mass may represent a satellite l esion. There are at least 8 rounded ??left axil karly lymph nodes which are increased in number when compared to the contralateral axilla. Outside rep ort states that these lymph nodes are unchanged from 2010; however, the prior examination is not av ailable for review. Patient underwent ultrasound-guided wire localization on 04/25/2021. Submitted images demonstrates adequate targeting and localization of t he mass. Postprocedural mammogram demonstrates a Stem wire positioned within the mass. Specimen radiograph demonstrates the pre sence of the targeted mass, the circular clip, and wire. Per clinic note note during surgery was noted that 5 out of 6 left axillary sentinel lymph which were positive for metastatic disease. Debbie Johansen APRN C.N.P., M.S. IMG MRI PROCEDURES documented in [...]
--- OUTSIDE RECORDS SUMMARY | 2022-04-03 11:29 | XMS_ITS | Encounter Summary ---
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 How often do you attend sikhism or More than 4 times per year 10/31/2021 anabaptism services? Do you belong to any clubs or No 10/31/2021 organizations such as sikhism groups, unions, fraternal or athletic groups, or [...] slept in a senior care (including now)? Sex Assigned at Date Recorded [...] Imaging RST LOS, Breast Imaging ARZ LOS, [place] st N/A Mammography Imaging FLA LOS, Other [...] may be of value if it would plant changer. 3. Prominent rounded right axillary lymp h [...] targeting of one of the lymph nodes [facility] interpretation of outside hi stology is not [...] lymph node but cannot be visualized mammographically. [facility] interpretation of outside hi stology is not [...] t he mass. Postprocedural mammogram demonstrates a [place] wire positioned within the mass. Specimen radiograph demonstrates the pre sence of the targeted mass, the circular clip, and wire. Per clinic note note during surgery was noted that 5 out of 6 left axillary sentinel lymph which were positive for metastatic disease. Debbie J Johansen MEDICAL BILLING ASSISTANT, C.N.P., M.S. IMG BI PROCEDURES Interpretation of Outside Breast Imaging (10/29/2021 2:37 PM CDT) Anatomical Region Laterality Modality Breast, Breast Imaging RST LOS, Breast Imaging ARZ LOS, [place] st N/A Mammography Imaging FLA LOS, Other [...] may be of value if it would plant changer. 3. Prominent rounded right axillary lymp h [...] targeting of one of the lymph nodes [facility] interpretation of outside hi stology is not [...] adequate targeting and sampling of the mass. Ducle l image states that a clip was [...] lymph node but cannot be visualized mammographically. [facility] interpretation of outside hi stology is not available at the time of this interpretation. [facility] [...] t he mass. Postprocedural mammogram demonstrates a [place] wire positioned within the mass. Specimen radiograph [...] Imaging RST LOS, Breast Imaging ARZ LOS, [place] st N/A Mammography Imaging FLA LOS, Other [...] may be of value if it would plant changer. 3. Prominent rounded right axillary lymp h [...] targeting of one of the lymph nodes [facility] interpretation of outside hi stology is not [...] lymph node but cannot be visualized mammographically. [facility] interpretation of outside hi stology is not [...] t he mass. Postprocedural mammogram demonstrates a [place] wire positioned within the mass. Specimen radiograph demonstrates the pre sence of the targeted mass, the circular clip, and wire. Per clinic note note during surgery was noted that 5 out of 6 left axillary sentinel lymph which were positive for metastatic disease. Debbie Johanesn APRN C.N.P., M.S. IMG MRI PROCEDURES documented [...]
--- OUTSIDE RECORDS SUMMARY | 2022-04-03 11:29 | XMS_ITS | Encounter Summary ---
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 [address] [place] [address] Referral ID Status Reason Start Date Expiration Date Visits Requ ested Visits Authorized [id number] Closed 10/29/2021 10/29/2022 1 1 Encounter Details Date Type Department Care Team Description 10/29/2021 Orders Only Department of Tyree Moraes Malignant N eoplasm Of Radiation Oncology in [place], M.S. Breast Upper Outer [place] [address] [facility] Quadrant Female Left [address] [place], [place] (HCC) (Primary Dx) [place] [address] [phone] Social History Tobacco Use Types Packs/Day Years [...] many times do you More than three saadai es a week 10/31/2021 talk on the phone with family, friends, or neighbors? How often do you get together with friends Never 10/31/2021 or relatives? How often do you attend religious or More than 4 times per year 10/31/2021 yarsani services? Do you belong to any clubs or No 10/31/2021 organizations such as religious groups, unions, fraternal or athletic groups, or [...] or slept in a correction (including now)? 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
--- OUTSIDE RECORDS SUMMARY | 2022-04-03 11:29 | XMS_ITS | Encounter Summary ---
:1970 Author Organization [facility] Address [address] [place] [address] Care Team Providers Name Role Phone Unavailable Primary Care Provider Unavailable Encounter Details Date Type Department Care Team Description 10/29/2021 Orders Only Division of Breast and Debbie Johansen, Malignant Neoplasm Of Breast Female Left (HCC) (Primary Dx); Melanoma Surgical CREATIVE ASSISTANT, C.N.P., M.S. 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 How often do you attend buddhism or More than 4 times per year 10/31/2021 advent services? Do you belong to any clubs or No 10/31/2021 organizations such as buddhism groups, unions, fraternal or athletic groups, or [...] or slept in a retirement (including now)? 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
--- OUTSIDE RECORDS SUMMARY | 2022-04-03 11:29 | XMS_ITS | Encounter Summary ---
:1970 Author Organization [facility] Address [address] [place] [address] Care Team Providers Name Role Phone Unavailable Primary Care Provider Unavailable Encounter Details Date Type Department Care Team Description 10/28/2021 Orders Only Division of Breast and [facility], [place] gonzalez Nunn R.N. Melanoma Surgical Oncology [address] [facility] in [place], [place] [address] [facility] [address] [place] [address] [phone] Social History Tobacco Use Types Packs/Day Years [...] More than 4 times per year 10/31/2021 anabaptist services? Do you belong to any clubs [...] place to sleep or slept in a nursing home (including now)? Sex Assigned at Date Recorded [...]
--- OUTSIDE RECORDS SUMMARY | 2022-04-03 11:29 | XMS_ITS | Encounter Summary ---
:1970 Author Organization [facility] Address [address] [place] [address] Care Team Providers Name Role Phone Unavailable Primary Care Provider Unavailable Encounter Details Date Type Department Care Team Description 10/29/2021 Lab RST RO LMP Fritz Smith, Malignant Neoplasm Of [address] [place] [address] Quadrant Female Left [place], [place] (HCC) [phone] (Wo rk) Social History Tobacco Use Types [...] or slept in a fpc (including now)? Sex Assigned at Date Recorded Female 10/31/2021 2:05 PM CDT documented as of this encounter Plan of Treatment Not on filedocumented as of this encounter Procedures Procedure Name Priority Date/Time Associated Diagnosis Comme nts PATHOLOGY REVIEW OF Routine 03/19/2021 2:00 PM Malignant Neopl asm Results for this OUTSIDE MATERIAL CDT Of Breast Upper procedur e are in Outer Quadrant the results Female Left (HCC) section. documented in this encounter Results Pathology Review of Outside Material (03/19/2021 2:00 PM CDT) Component Value Ref Test Analysis Performed Pathologis t Range Method Time At Signature 11/04/2021 DTL 11:03 AM CDT Report Joceline Walls M.D. 11/04/2021 DTL electronically 11:03 AM signed by CDT I verify that I have examined all relevant slides/materials for the specimen(s) and rendered or confirmed the diagnosis. Material A. [id number]: Left breast, left axilla 11/04/2021 DTL Received ? 10 stained slides 11:03 AM B. [id number]: Left breast CDT ? 34 stained slides C. [id number]: Right breast, right axilla ? 15 stained slides D. [id number]: Left breast ? 3 stained slides Interpretation FINAL DIAGNOSIS 11/04/2021 DTL 11:03 AM Breast and lymph node, core biopsies ([id number]; CDT 03/19/2021): A. 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 B. ??Lymph node, left axilla: ??Benign lymph node, negative for metastatic carcinoma. Immunoperoxidase stains were performed by the referring institution and reviewed at [facility] (block A1). Estrogen Receptor: Positive, 91-100% [...] CEP17 signals/cell: ??2.64). Breasts and lymph nodes ([id number]; 04/25/2021): A. ??Breast, left, lumpectomy: ??Invasive ductal carcinoma, [place] grade III (of III), [tubules 3/3, nuclei 3/3, mitoses 2/3; Millmont score 8/9], 22 mm in greatest dimension [...] by the referring institution and reviewed at [facility]. HER2 protein overexpression is negative, score of 1+ (block B8). Ki-67: ??14% (block A3). Lymph node, right axilla, core biopsy ([id number]; 06/05/2021): ?? Reactive lymphoid hyperplasia, negative for metastatic carcinoma. Immunoperoxidase stains were performed by the referring institution and reviewed at [facility] (block A1). 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
--- OUTSIDE RECORDS SUMMARY | 2022-04-03 11:29 | XMS_ITS | Encounter Summary ---
:1970 Author Organization [facility] Address [address] [place] [address] Care Team Providers Name Role Phone Unavailable Primary Care Provider Unavailable Reason for Visit Appointment Request (Routine) - Pending Review Specialty Diagnoses / Procedures Referred By Contact Refer red To Contact Radiation Oncology Diagnoses Malignant Neoplasm Of Breast Female Left (HCC) Sandy Martins M.D. [facility] Radiation Procedures Office [address] [facility] Oncology at [facility] [id number] [address] [place] [address] Referral ID Status Reason Start Date Expiration Date Visits V isits Requested Authorized [id number] Pending 10/16/2021 10/16/2022 1 1 Review Encounter Details Date Type Department Care Team Description 10/25/2021 Hospital Encounter Department of Fritz Smith Neoplasm Radiation Oncology Selma Shah Of Breast Upper in [place], [facility] [address] [place], [place] Female Left (HCC) [address] [facility] [address] (Primary Dx) [place], [place] [phone] [address] (Work) [phone] Social History Tobacco Use Types Packs/Day Years [...] or relatives? How often do you attend lutheran or More than 4 times per year 10/31/2021 religion services? Do you belong to any clubs or No 10/31/2021 organizations such as lutheran groups, unions, fraternal or athletic groups, or [...] or slept in a prison (including now)? Sex Assigned at Date Recorded Female 10/31/2021 2:05 PM CDT documented as of this encounter Last Filed Vital Signs Vital Sign Reading Time Taken Comments Blood Pressure 126/65 10/25/2021 8:49 AM CDT Pulse 71 10/25/2021 8:49 AM CDT Temperature 36.1 ??C (97 ??F) 10/25/2021 8:49 AM CDT Respiratory Rate - - Oxygen Saturation - - Inhaled Oxygen Concentration - - Weight 87.5 kg (192 lb 14.4 oz) 10/25/2021 8:49 AM CDT Height - - Body Mass [...] mouth 0 10/11/2021 tablet daily. triamcinolone (KENALOG) as needed. 0 09/06/2021 0.1 % cream buPROPion (WELLBUTRIN SR) Take 2 tablets by 0 03/200811/07/2021 100 mg 12 hr tablet mouth every morning. diphenhydrAMINE (BENADRYL) Take by mouth. 0 11/1011/07/2021 25 mg capsule FLUoxetine (PROzac) 20 mg Take 3 capsules by 0 11/07/2021 capsule mouth daily. mirabegron (MYRBETRIQ) 25 Take 1 tablet by 0 07/1611/07/2021 mg 24 hr tablet mouth daily. predniSONE (DELTASONE) 20 Take by mouth. 0 200311/07/2021 mg tablet documented as of this encounter Consult Notes Tyree Moraes M.D., M.S. - 10/25/2021 9:00 AM CDT RADIATION ONCOLOGY CONSULTATION Supervising Silo Erector: Dr. Fritz Smith Referring Provider: Sandy Martins M.D. Primary Care Provider: Dr. Freddie Chao Home address: [address] [place] [phone] SUBJECTIVE History of present illness Mrs. Joceline Uribe is a 51 y.o. 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 The patient's oncologic history is as follows: Oncology History [...] carcinoma a. Lexy grade: II of III; Petersburg score: 7 of 9 b. Angio-lymphatic invasion: [...] with the [employer] 20 gene breast and PROFESSOR OF ARCHAE[employer] cancer panel. No genetic mutations. 04/25/2021 Surgery and Procedures Left breast lumpectomy and left axillary sentinel lymph node biopsy was performed by Dr. Katherine Hawthorne. A) LEFT BREAST, LUMPECTOMY: 1. Invasive ductal carcinoma a. Petersburg grade 3; see comment b. 22 mm in greatest dimension 2. Breast Ancillary Testing: Performed on prior case [id number] a. Hormone Receptors: Estrogen receptor: Positive (96%, [...] of Lymph Nodes Examined: 6 Number of [place] Nodes Examined: 6 PATHOLOGIC STAGE CLASSIFICATION (pTNM, [...] an aromatase inhibitor. Follow-up in 3 months. 10/31/2021 - Radiation Therapy Radiation Therapy Treatment Details (Noted on 10/23/2021) Site: Left Breast Technique: No technique specified Goal: Curative Planned Treatment Start Date: 10/31/2021 In the clinic today, Mrs. Joceline Uribe reports that overall she is doing well. She has significant fatigue that is improving since finishing chemotherapy. Her neuropathy seems to be improving as well, although she still is not able to ambulate as well using her cane as prior to chemotherapy due to right foot drop. She has had a few falls but no apparent injuries. She reports minimal swelling of her left upper extremity and has been involved with physical therapy and a local lymphedema clinic. She has mild improved cording and wears a compression sleeve of the lowest level. Her range of motion of the left upper extremity and neck are excellent. Her axillary and breast incisions have healed well with no recent swelling around the surgical sites. She feels optimistic and attempts to have a good attitude about her prognosis, and she presents with her supportive . Patient reported symptom screen Fatigue (scale: 0 = no fatigue; 10 = worst fatigue you can imagine): 8 Pain (scale: 0 = no pain; 10 = worst pain you can imagine): 2 Overall quality of life (scale: 0 = as bad as can be; 10 = as good as can be): 8 Past medical history Pertinent past medical history, past surgical history, medications, allergies, social history, and family history were reviewed. Pertinent past medical history includes cervical spinal cord injury withprior quadriplegia in 2017 s/p cervical fusion, hypothyroidism,. The patient does not have a historyof lupus or scleroderma. The patient has no implanted medical devices. Social history is significantfor never smoker. Family history is significant for breast cancer in her mother at age 50, sister atage 44, and maternal grandmother at age 48. Her brother is on tamoxifen for gynecomastia without malignancy. The patient underwent BRCA testing approximately 18 years ago, which was negative, and more recently [employer]ae 20 gene breast and PROFESSOR OF ARCHAEOLOGY cancer panel, which also was negative. Prior history of radiation None. Review of systems Review of systems as noted in HPI. OBJECTIVE Vitals Weight: 87.5 kg, Temperature: 97.0 degrees Farenheit, Pulse: 71 beats per minute and Blood pressure:126/65 mmHg Physical exam ECO Constitutional: Pleasant, in no acute distress, overweight, ambulates with a cane. Respiratory: CTAB, no r/r/w, normal work of breathing on room air Cardiovascular: RRR, no m/r/g Breast: Left breast and axillary incisions are well healed, no overlying nipple or skin changes bilaterally, bilateral breasts are free from palpable masses Lymph node: No palpable cervical or axillary lymphadenopathy. ASSESSMENT AND PLAN #1 Stage IIB (pT2, pN2a, cM0, G3, ER+, MN+, HER2-) invasive ductal carcinoma of the left upper outerbreast s/p lumpectomy and sentinel lymph node biopsy and adjuvant ddAC x4 cycles and paclitaxel x7 cycles Joceline Uribe is a 51 year old woman with locally advanced left breast cancer who is seen in Radiation Oncology for a discussion of radiation treatment. I have reviewed the pertinent history, laboratory, and imaging studies. The patient has undergone surgery and adjuvant chemotherapy, which was discontinued after 4 cycles of ddAC and 7 of 12 planned cycles paclitaxel secondary to neuropathy. Her last chemotherapy dose was on 09/27/2021. We reviewed the locoregional control and survival benefit of adjuvant radiotherapy in a more typical patient with involved lymph nodes. Standardly we would recommend treating the left breast and comprehensive regionallymph nodes with a boost to the lumpectomy cavity. We discussed the logistics of radiation simulation, planning, and daily treatment. We also reviewed the acute and late toxicities associated with treatment including fatigue, dermatitis, fibrosis, chest pain, rib fracture, pneumonitis, cardiac events, hypothyroidism (already present in patient), esopha gitis, secondary malignancy. The patient displayed understanding of the risks and benefits. We discussed, however, that the patient has an atypical situation. Guideline recommendations would have been for axillary lymph node dissection following 5 positive lymph nodes on sentinel lymph node biopsy. In the AMAROS trial, only 1% of enrolled patients had 4+ positive sentinel lymph nodes, and this patient population thus wasn't well evaluated on that study that demonstrated comparable oncologicoutcomes between completion axillary dissection versus regional gisell irradiation in clinically nodenegative patients. The patient had at least 3 positive lymph nodes on post-operative PET scan and up to 3 more by my count that were involved versus reactive. Taken together with her 5 positive lymph nodes, she has a heavy burden of axillary disease representing a high risk of locoregional recurrence that may not adequately be addressed without further surgery. She did have a metabolic response to adjuvant chemotherapywith no residual FDG avidity, although there are at least a couple of lymph nodes that remain enlarged while not metabolically active. Unfortunately the patient was not able to complete the full recommend chemotherapy course due to neurotoxicity from paclitaxel. We discussed that if we are to proceed with radiation, in addition to boosting the lumpectomy cavity, we would like to boost the areas of gross gisell involvement as well. These are in close proximity to the left brachial plexus. Thus, there is a challenging balance between oncologic outcomes and risksof additional toxicity. We reviewed that there is some uncertainty regarding the case. While clearing the axilla surgically may provide superior locoregional control, it comes with a higher risk of lymphedema, which the patient is experiencing to a slight degree already. Conversely, proceeding with radiation now comes at a higher risk of brachial plexopathy in a patient with a history of spinal cord injury, limitations from that, and on top of that neurotoxicity from adjuvant chemotherapy. One additional caveat to consider is the modality of radiotherapy. The patient is lung and will require comprehensive gisell irradiation with boosts to the cavity and areas of axillary lymph node disease. Proton radiotherapy would provide superior normal tissue sparing as opposed to 3DCRT or IMRT, particularly in a young patient. We discussed that we would like to review this case by our breast expert colleagues in [place] forconsideration of further surgery, use of radiotherapy, and final dose/fracitionation. We will plan for CT simulation today, 10/25/2021, to obtain further information in guidance of these decisions. The patient was agreeable with this plan and appreciative of the opportunity for further expertise and guidance. We will contact her within one week to review recommendations. If additional surgery is recommended, we will confer with her surgeon, Dr. Hawthorne, as well as her oncologist, Dr. Martins. All questions were answered to the patient's satisfaction. Our departmental contact information was provided to the patient who was encouraged to contact the Department of Radiation Oncology with further questions or concerns. Dr. Fritz Smith is the health management consultant; please see attestation for further details. Tyree Moraes M.D., M.S. Associated attestation - Fritz Smith M.D. - 10/25/2021 7:24 PM CDT I saw and evaluated the patient and participated in the light portions of the service. I reviewed the documentation of Tyree Moraes M.D. and agree with his findings and plan. In brief, Mrs. Joceline Uribe is a 51 y.o. female with stage IIB (pT2, pN2a, cM0, G3, ER+, MN+, HER2-)invasive ductal carcinoma of the left upper outer breast s/p lumpectomy and sentinel lymph node biopsy and adjuvant ddAC x4 cycles and paclitaxel x7 of 12 planned cycles. We are now asked by Dr. June evaluate the patient for adjuvant radiotherapy. Her oncologic history is well detailed in Dr. Moraes' note. She was found to have a biopsy-proven left upper outer quadrant breast mass after she presented with palpable nodularity and dimpling. She underwent lumpectomy and left axillary sentinel lymph node biopsy on April 25, 2021 under the care of Dr. Hawthorne with pathology confirming grade 3 invasive ductal carcinoma measuring 2.2 cm with associated grade 3 DCIS and initially close margins at less than 1 mm but with re-excision margins were 3 mm to the invasive disease and 5 mm to the DCIS. Thetumor cells were ER positive, MN positive and HER2 negative by FISH. Five of 6 left axillary sentinel lymph nodes were positive, 1 of which was micro metastatic, and the largest measuring 11 mm. There was less than 1 mm of extracapsular extension present. Postoperative CT scan of the chest, abdomen, and pelvis on May 15, 2021 revealed an indeterminate 3.3 mm left lower lobe pulmonary nodule as well as prominent but indeterminate right axillary lymph nodes. An ultrasound-guided right axillary lymph node biopsy on June 05, 2021 was negative. She began chemotherapy with Adriamycin and Cytoxan for 4 cycles on June 07, 2021. PET/CT scan obtained on June 18, 2021 revealed multiple FDG avidleft axillary lymph nodes highly suspicious for metastatic gisell disease with a high axillary lymph node having an SUV max of 10.2 and a size of 1.4 cm and a low axillary lymph node having an SUV max of 14.4 with a size of 1.5 cm. She completed total of 4 cycles of Adriamycin and Cytoxan in July and then proceeded with 7 of a planned 12 cycles of paclitaxel finishing on September 27, 2021. Dr. Martins was concerned about worsening neuropathy and elected to discontinue any further paclitaxel. Patient reports that she is currently improving with respect to her fatigue from chemotherapy. The neuropathy from chemotherapy is also improving though she is not able to ambulate well with a cane. She is able to ambulate with a left forearm crutch. She is wearing a compression sleeve for lymphedema.Her ECOG performance status is 1 OBJECTIVE PHYSICAL EXAM General: Patient is awake, alert, and oriented to person, place, and time. No apparent distress. Sheis here today with her Krunal. Extremities: Left upper extremity range of motion is full. She does have a compression sleeve in place. Breasts: Examined in the supine position at the treatment machine with the veterans' coordinator of the therapists, Nila, RTT. The right breast examined by Dr. Moraes. The left breast has an everted nipple with a well-healed surgical scar in the upper outer quadrant radiating from the 1 o'clock to 3 o'clock position no palpable masses, no overlying skin changes, and no expressible nipple discharge. There is also well-healed incision in the left axilla. DIAGNOSTICS I reviewed the patient's imaging and pathology reports. ASSESSMENT / PLAN #1 Stage IIB (pT2, pN2a, cM0, G3, ER+, MN+, HER2-) invasive ductal carcinoma of the left upper outerbreast s/p lumpectomy and sentinel lymph node biopsy and adjuvant ddAC x4 cycles and paclitaxel x7 cycles #2 Cervical spinal cord injury with quadriplegia in 2017, status post cervical fusion, with subsequent neurologic improvement #3 Left upper extremity lymphedema following lumpectomy and sentinel lymph node biopsy, mild to moderate #4 Chemotherapy-induced neuropathy, improving I had a detailed discussion with the patient and her spouse regarding the risks, benefits, and alternatives of radiotherapy in this setting. I reviewed the NCCN guidelines in formulating my recommendations. The patient had 5 positive lymph nodes at sentinel lymph node biopsy and then began chemotherapy with a PET/CT scan following soon after revealing at least 3 more (and possibly 6 total) additionalleft axillary lymph nodes that were FDG avid. Subsequent PET/CT scan revealed resolution of the FDG avidity. I can still see residual enlargement of at least 1 of the treated nodes. Her options at the moment include: Completion axillary lymph node dissection (given her multiple positive lymph nodes with extracapsular extension removed with sentinel lymph node biopsy, unresected lymph nodes following sentinel lymph node biopsy on PET/CT scan, and a less than full chemotherapeutic course because of neuropathy) followed by adjuvant radiotherapy. This would allow for a lower radiotherapeutic dose to the brachial plexus but would increase her risk of worsening lymphedema. Adjuvant radiotherapy now likely to a dose of 50 Gy in 25 fractions to the left breast and regional lymph nodes with a simultaneous integrated boost to a dose of 56.25 Gy in 25 fractions to the areas of PET positive disease that were not resected in the left axilla. This carries with it an increased risk of brachial plexopathy because of the close proximity to the brachial plexus. I discussed the logistics as well as the acute and chronic side effects of treatment in detail. For a complete listing of these, please see Dr. Moraes' note. We discussed the possible utilization of proton therapy in [place] for better cardiac, lung, and brachial plexus sparing. We will not know how well we can spare these structures without generating a photon plan. Photon treatment will require intensity modulated radiotherapy so as to spare high radiation dose to the adjacent heart, lungs, and brachial plexus. After this discussion, I provided the patient with a written summary of my recommendations. Her questions and those of her spouse were answered to their verbalized satisfaction. The patient verbally stated that she would like to proceed with treatment and signed the consent form. She will undergo CT si mulation today. We will confer with our breast subspecialty Radiation Oncology colleagues in [place] about best next steps after we have a treatment plan available. We will contact the patient with our recommendations next week. The patient and her spouse verbalized satisfaction with this plan. My thanks to Drs. Martins, Christoph, and Jeremie for the opportunity to participate in this patient's care. EDUCATION Ready to learn, no apparent learning barriers were identified; learning preferences include listening. Explained diagnosis and treatment plan; patient expressed understanding of the content. CONSENT Discussed the risks, benefits, alternatives, and the necessity of other members of the healthcare team participating in the procedure. All questions answered and consent given. I have spent 30 minutes with this patient today with 30 minutes spent in counseling the patient. Signed by: Fritz Smith M.D. 10/25/21 7:24 PM CDT [facility] [address] [place] [address] documented in this encounter Miscellaneous Notes Addendum Note - Leora Ortez, C.N.A. - 10/25/2021 9:00 AM CDT Encounter addended by: Leora Ortez C.NYeAYe on: 10/28/2021 7:07 AM Actions taken: Letter saved documented in this encounter Plan of Treatment Not on filedocumented as of this encounter Visit Diagnoses Diagnosis Malignant Neoplasm Of Breast Upper Outer Quadrant Female Left (HCC) - Primary documented in this encounter
--- OUTSIDE RECORDS SUMMARY | 2022-04-03 11:29 | XMS_ITS | Encounter Summary ---
:1970 Author Organization [facility] Address [address] [place] [address] Care Team Providers Name Role Phone Unavailable Primary Care Provider Unavailable Encounter Details Date Type Department Care Team Description 11/05/2021 Orders Only Department of Radiation Tyree Moraes M .D., Oncology in [facility] [address] [facility] [address] [place] [phone] [phone] (Wo rk) Social History Tobacco Use Types [...] or relatives? How often do you attend methodist or More than 4 times per year 10/31/2021 sabianist services? Do you belong to any clubs or No 10/31/2021 organizations such as methodist groups, unions, fraternal or athletic groups, or [...]
--- OUTSIDE RECORDS SUMMARY | 2022-04-03 11:29 | XMS_ITS | Encounter Summary ---
:1970 Author Organization [facility] Address [address] [place] [address] Care Team Providers Name Role Phone Unavailable Primary Care Provider Unavailable Encounter Details Date Type Department Care Team Description 10/28/2021 Ancillary Procedure Department of Fritz Smith Neoplasm Radiology in [place], M.D. Of Breast [place], [place] [address] [facility] Outer Quadrant [address] [place], [place] Female Left (HCC) [place] [phone] Social History Tobacco Use Types Packs/Day Years [...] More than 4 times per year 10/31/2021 christianity services? Do you belong to any clubs or No 10/31/2021 organizations such as mandaen groups, unions, fraternal or athletic groups, or [...]
--- OUTSIDE RECORDS SUMMARY | 2022-04-03 11:29 | XMS_ITS | Encounter Summary ---
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 How often do you attend catholic or More than 4 times per year 10/31/2021 jehovah's witness services? Do you belong to any clubs or No 10/31/2021 organizations such as catholic groups, unions, fraternal or athletic groups, [...] or slept in a penitentiary (including now)? Sex Assigned at Date Recorded Female 10/31/2021 2:05 PM CDT documented as of this encounter Plan of Treatment Not on filedocumented as of this encounter Procedures Procedure Name Priority Date/Time Associated Comments Diagnosis INTERPRETATION OF RAD - Routine 10/29/2021 2:36 Malignant Result s for OUTSIDE MR BREAST (most inpatients PM CDT Neoplasm Of this p rocedure and all Breast Female are in the outpatients) Left (HCC) results Secondary section. 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 3. Prominent rounded right axillary lymp h [...] one of the lymph nodes [facility] interpretation of outside hi stology is [...] but cannot be visualized mammographically. [facility] interpretation of outside hi stology is [...] t he mass. Postprocedural mammogram demonstrates a [place] wire positioned within the mass. Specimen radiograph demonstrates the pre sence of the targeted mass, the circular clip, and wire. Per clinic note note during surgery was noted that 5 out of 6 left axillary sentinel lymph which were positive for metastatic disease. Debbie Johansen APRN, C.N.P., M.S. IMG BI PROCEDURES Interpretation of Outside Breast Imaging (10/29/2021 2:37 PM CDT) Anatomical Region Laterality Modality Breast, Breast Imaging RST LOS, Breast Imaging ARZ LOS, [place] N/A Mammography Imaging FLA LOS, Other [...] may be of value if it would global climate change researcher. 3. Prominent rounded right axillary lymp h [...] one of the lymph nodes [facility] interpretation of outside hi stology is [...] but cannot be visualized mammographically. [facility] interpretation of outside hi stology is not available at the time of this interpretation. [facility] with invasive ductal [...] t he mass. Postprocedural mammogram demonstrates a [place] wire positioned within the mass. Specimen radiograph [...] Imaging RST LOS, Breast Imaging ARZ LOS, [place] N/A Mammography Imaging FLA LOS, Other [...] may be of value if it would global climate change researcher. 3. Prominent rounded right axillary lymp h [...] one of the lymph nodes [facility] interpretation of outside hi stology is not available at the time of this interpretation. Outside histology report states that the sampled right axillary lymph node demonstrates reactive change and was negative for metastatic d istroye. Left breast: Most recent mammogram submi tted [...] but cannot be visualized mammographically. [facility] interpretation of outside hi stology is [...] t he mass. Postprocedural mammogram demonstrates a [place] wire positioned within the mass. Specimen radiograph [...]
--- OUTSIDE RECORDS SUMMARY | 2022-04-03 11:29 | XMS_ITS | Encounter Summary ---
:1970 Author Organization [facility] Address [address] [place] [address] Care Team Providers Name Role Phone Unavailable Primary Care Provider Unavailable Encounter Details Date Type Department Care Team Description 10/28/2021 Ancillary Procedure Department of Fritz Smith Neoplasm Radiology in L, M.D. Of Breast [place], [place] [address] [facility] Outer Quadrant [address] [place], [place] Female Left (HCC) [place] [phone] Social History Tobacco Use Types Packs/Day Years [...] More than 4 times per year 10/31/2021 latter day services? Do you belong to any clubs [...] a [place] [facility] (including now)? Sex Assigned at Date Recorded Female 10/31/2021 2:05 PM CDT documented as of this encounter Plan of Treatment Not on filedocumented as of this encounter Procedures Procedure Name Priority Date/Time Associated Comments Diagnosis INTERPRETATION OF RAD - Routine 10/28/2021 8:04 Malignant Result s for OUTSIDE NM PET SCAN (most inpatients PM CDT Neoplasm Of this procedure and all Breast Upper are in the outpatients) Outer Quadrant results Female Left section. (HCC) documented in this encounter Results Interpretation of Outside NM PET Scan (10/28/2021 8:04 PM CDT) Anatomical Region Laterality Modality Nuclear Medicine PET RST LOS, Nuclear Medicine ARZ LOS, N/A Nuclear Medicine Nuclear Medicine FLA LOS, Nuclear Medicine, Other, Neuroradiology ARZ LOS, Neuroradiology FLA LOS, Neuroradiology RST LOS Specimen (Source) Anatomical Collection Method Collection [...] focal left adnexa l FDG uptake. 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
--- OUTSIDE RECORDS SUMMARY | 2022-04-03 11:29 | XMS_ITS | Encounter Summary ---
:1970 Author Organization [facility] Address [address] [place] [address] Care Team Providers Name Role Phone Unavailable Primary Care Provider Unavailable Reason for Referral Outpatient (Routine) - Authorized Specialty Diagnoses / Procedures Referred By Contact Refer red To Contact Radiation Oncology Fritz Smith M .D. 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 [facility] Procedures Initial Rad Onc Treatment Planning CT Simulation [address] [place] [address] Referral ID Status Reason Start Date Expiration Date Visits V isits Requested Authorized [id number] Pending 10/23/2021 10/23/2022 1 1 Review Encounter Details Date Type Department Care Team Description 10/23/2021 Orders Only Department of Radiation Teetee Katz Mal ignant Neoplasm Of Oncology in [place], P.A.-C., M.S. Breast Upper Outer [place] [address] Quadrant Female Left [address] [place], [place] (HCC) (Primary Dx) [place] [phone] Social History Tobacco Use Types Packs/Day Years [...] 10/31/2021 organizations such as rastafarian groups, unions, fraternal or athletic groups, or [...] or slept in a usp (including now)? Sex Assigned at Date Recorded Female 10/31/2021 2:05 PM CDT documented as of this encounter Plan of Treatment Scheduled Orders Name Type Priority Associated Order Schedule Diagnoses Prior Auth Rad Tx Radiation Oncology Routine Malignant Neoplas m Ordered: 10/23/2021 Of Breast Upper Outer Quadrant Female Left (HCC) Management Visit Radiation Oncology Routine Malignant Neoplasm 10 Occurrences Of Breast Upper starting 12/2021 Outer Quadrant until 023 Female Left (HCC) Scheduled Referrals Name Type Priority Associated Order Schedule Diagnoses Radiation Oncology Outpatient Referral Routine 10 Occurrences nurse visit starting 2021 (clinic) until 3 documented as of this encounter Results Initial Rad Onc Treatment Planning CT Simulation (10/25/2021 11:06 AM CDT) Specimen (Source) Anatomical Location Collection Method / Collectio n Time Received Time / Laterality Volume Narrative ROSA LO - 10/25/2021 11:06 AM CDT Abena Calloway, RTT ? 10/25/2021 11:08 AM Initial Rad Onc Treatment Planning CT Si mulation Date/Time: 10/25/2021 11:06 AM Performed by: Fritz Smith M.D. Authorized by: Fritz Smith M.D. Fritz Smith M.D. 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
--- OUTSIDE RECORDS SUMMARY | 2022-04-03 11:29 | XMS_ITS | Encounter Summary ---
:[address] 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 Surgical Oncology [address] [place] [address] Referral ID Status Reason Start Date Expiration Date Visits Requ ested Visits Authorized [id number] Closed 10/25/2021 10/25/2022 1 1 Encounter Details Date Type Department Care Team Description 10/28/2021 Orders Only Department of Tyree Moraes Malignant N eoplasm Of Radiation Oncology in [place], M.S. Breast Upper Outer [place] [address] [email or web address] Quadrant Female Left [address] [place], [place] (HCC) (Primary Dx) [place] [phone] Social History Tobacco Use Types Packs/Day Years [...] or slept in a longterm (including now)? Sex Assigned at Date Recorded Female 10/31/2021 2:05 PM CDT documented as of this encounter Plan of Treatment Scheduled Referrals Name Type Priority Associated Diagnoses [facility] - Outpatient Referral Routine Malignant Neopla sm Expected: Breast consult Of Breast Upper 10/28/2021 (clinic) Outer Quadrant (Approximate) , Female Left (HCC) Expires: 01/28/2023 documented as of this encounter Results Radiology eTumor (11/05/2021 6:45 AM CDT) Specimen (Source) Anatomical Location Collection Method / Collectio n Time Received Time / Laterality Volume Tyree Moraes M.D., M.S. 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
--- OUTSIDE RECORDS SUMMARY | 2022-04-03 11:29 | XMS_ITS | Encounter Summary ---
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 [facility] Procedures Initial Rad Onc Treatment Planning CT Simulation [address] [place] [address] Referral ID Status Reason Start Date Expiration Date Visits V isits Requested Authorized [id number] Pending 10/23/2021 10/23/2022 1 1 Review Encounter Details Date Type Department Care Team Description 10/25/2021 Hospital Encounter Department of Fritz Smith Neoplasm Radiation Oncology [place] Shah Of Breast Upper in [place], [facility] [address] [facility], [place] Female Left (HCC) [address] [facility] [address] [place], [place] [phone] (Work) [phone] Social History Tobacco Use Types Packs/Day Years [...] or relatives? How often do you attend jewish or More than 4 times per year 10/31/2021 scientology services? Do you belong to any clubs or No 10/31/2021 organizations such as jewish groups, unions, fraternal or athletic groups, or [...] or slept in a fdc (including now)? 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 Area scanned: Neck and Chest Contrast used for the simulation procedure: None Patient position: Head first supine and arms up Custom immobilization: Vac-karen and Knee Cushion Motion management: Breath hold scan Bolus: No CT guidance: Following positioning of the patient, a series of slices was obtained to be utilized intreatment planning. CT images were transferred to the Eclipse treatment planning system, after a reference isocenter was determined and marked. Segmentation and treatment planning will take place priorto treatment delivery. Patient set up and imaging was appropriate and completed without incident. Rn Diabetes Educator use: No documented in this encounter Plan of Treatment Not on filedocumented as of this encounter Procedures Procedure Name Priority Date/Time Associated Comments Diagnosis INITIAL RAD ONC Routine 10/25/2021 11:06 AM Malignant Neoplasm Results for this TREATMENT PLANNING CDT Of Breast Upper proced ure are in CT SIMULATION Outer Quadrant the results Female Left (HCC) section. documented in this encounter Results Initial Rad Onc Treatment Planning CT Simulation (10/25/2021 11:06 AM CDT) Specimen (Source) Anatomical Location Collection Method / Collectio n Time Received Time / Laterality Volume Narrative [facility] - 10/25/2021 11:06 AM CDT Abena Calloway, RTT ? 10/25/2021 11:08 AM Initial Rad Onc Treatment Planning CT Si mulation Date/Time: 10/25/2021 11:06 AM Performed by: Fritz Smith M.D. Authorized by: Fritz Smith M.D. Fritz Smith M.D. 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
--- OUTSIDE RECORDS SUMMARY | 2022-04-03 11:29 | XMS_ITS | Clinical Summary ---
:1970 Author [facility] Address [address], [place] [address] Care Team Providers Name Role Phone Dory Salgado MD Primary Care Provider Source Comments You are receiving this document as you are listed as the primary care provider,follow-up provider, or the patient has been referred to you for consultation.This is in compliance with the Medicare and Medicaid EHR Incentive Program,which states Providers who transition their patient to another setting of careor provider of care or refers their patient to another provider of care shouldprovide summarycare record for each transition of care or referral. whoactually Allergies Active Allergy Reactions Severity Noted Date Comments Adhesive 06/10/2017 Amoxicillin Hives 11/11/2003 Ciprofloxacin 06/10/2017 Sulfa Antibiotics Hives 11/11/2003 Vancomycin 06/10/2017 Medications Medication Sig Dispensed Refills Start Date End Date Status PREDNISONE 20MG ORAL 0 11/11/2003 Active TABS DIPHENHYDRAMINE HCL 0 11/11/2003 Active (BENADRYL) 25MG ORAL CAPS PREDNISONE 20MG ORAL one tablet po qs 0 11/11/2003 Active TABS bid x 4 days then one tablet qd x 4 days then 1/2 tablet qd x 4 days then 1/2 tablet qod x 4 days unknown medication Indications: PN: 0 11/08/2003 Active Multiple Take 1 tablet by 100 13 11/08/2003 Ac tive Vitamins-Minerals mouth daily (MULTIVITAMIN OR) (every 24 hours). FLUoxetine (AKA PROZAC) Take 3 capsules 270 1 12/27/2007 Active 20 MG capsule by mouth daily (every 24 hours). buPROPion (AKA Take 2 tablets 180 1 12/27/2007 Active WELLBUTRIN SR) 100 MG 12 by mouth every hour release tablet morning. mirabegron (MYRBETRIQ) Take 1 Tab by 90 Tab 3 07/31/2017 Active 25 MG 24 hour release mouth daily. tabletIndications: Urinary urgency, Urinary frequency Active Problems Problem Noted Date Major depressive disorder, single episode 11/03/2003 Overview: LW Onset: [id number] ; Depression Major NOS Resolved Problems Problem Noted Date Resolved Date Allergic state 11/08/2003 03/23/2005 Overview: LW Onset: ; Allergic Reaction Immunizations Name Administration Dates Next Due Td 02/14/1994 Social History Tobacco Use Types Packs/Day Years Used Date Smoking Tobacco: Never Assessed Sex Assigned at Date Recorded Not on file Last Filed Vital Signs Vital Sign Reading Time Taken Comments Blood Pressure 100/70 02/16/2017 1:25 PM CDT Pulse 60 02/16/2017 1:25 PM CDT Temperature 36.6 ??C (97.8 ??F) 11/11/2003 10:30 AM CDT Respiratory Rate 16 11/11/2003 10:30 AM CDT Oxygen Saturation - - Inhaled Oxygen Concentration - - Weight - - Height - - Body Mass Index - - Plan of Treatment Health Maintenance Due Date Last Done Comments Colon Cancer Screening Plan 1970 Due Hep C Screening (Preventive 1970 Services) HepB (1) 1970 Mammogram 1970 COVID-19 Vaccine (#1) 1970 HIV Screening (Preventive 1985 Services) Adult Preventive Visit 1987 Cervical Cancer Screening Due 03/08/2004 03/07/2004, 01/11/2003, 01/06/2002 DTaP/Tdap/Td (1 - Tdap) 06/12/2004 06/11/2004, 02/14/1994 Cholesterol 2014 01/06/2002 Zoster/Shingles (1 of 2) 2019 Influenza (#1) 2022 HepA Aged Out No longer eligib le based on patient's age to complete this to pic Hib Aged Out No longer eligib le based on patient's age to complete this to pic IPV (Polio) Aged Out No longer eligib le based on patient's age to complete this to pic MCV4 Aged Out No longer eligib le based on patient's age to complete this to pic Pneumococcal Aged Out No longer eligib le based on patient's age to complete this to pic Insurance Payer Benefit Plan / Subscriber ID Effective Dates Phone Addre ss Type Group BCBS BCBS ADVANTAGE [id number] 2021Ragini [phone] [address] [address] [address] [place] [address] Joceline Uribe Personal/Family Self 1970 [address] (Home) [place], [place] [phone] (Work) Care Teams Manager Sql Relationship Specialty Start Date End Date Dory Salgado MD PCP - General 08/19/10 [address] [facility] 5th [address] [place], [place] [address]
--- OUTSIDE RECORDS SUMMARY | 2022-04-03 11:30 | XMS_ITS | Encounter Summary ---
:1970 [facility] Address [address], [place] [address] Care Team Providers Name Role Phone Dory Salgado MD Primary Care Provider Encounter Details Date Type Department Care Team Description 06/10/2017 Notes/Orders [facility] [address], Urology PA-C [address] [place] [phone] Social History Tobacco Use Types Packs/Day Years Used Date Smoking Tobacco: Never Assessed Sex Assigned at Date Recorded Not on file documented as of this encounter Plan of Treatment Not on filedocumented as of this encounter Visit Diagnoses Not on filedocumented in this encounter Administered Medications Inactive Administered Medications - up to 3 most recent administrations Medication Order MAR Action Action Date Dose Rate Site nitrofurantoin monohydrate Given 06/10/2017 3:36 PM STEEL DIVISION SUPERVISOR 100 mg macrocrystal (MACROBID) capsule 100 mg 100 mg, Oral, ONCE, On Thu06/10/17 at 1115, For 1 dose, Take with food, Indications: Postoperative Infection documented in this encounter Care Teams Pickers Material Handlers Relationship Specialty Start Date End Date Dory Salgado MD PCP - General 08/19/10 [address] [facility] 5th [address] [place], [place] [address] documented as of this encounter
--- OUTSIDE RECORDS SUMMARY | 2022-04-03 11:30 | XMS_ITS | Encounter Summary ---
:1970 Author Organization [facility] [employer] Address [address] [address] Care Team Providers Name Role Phone Dory Salgado MD Primary Care Provider Encounter Details Date Type Department Care Team Description 03/07/2004 PN Conversion Only DESIGN TECHNOLOGY TEACHER 3850 CONV Dory Salgado MD [address] [facility] [address] [facility] 5th [place] [address] [phone] (Wo rk) Social History Tobacco Use Types Packs/Day Years Used Date Smoking Tobacco: Never Assessed Sex Assigned at Date Recorded Not on file documented as of this encounter Plan of Treatment Not on filedocumented as of this encounter Procedures Procedure Name Priority Date/Time Associated Comments Diagnosis ANATOMICAL PATH Routine 03/07/2004 8:33 AM Result s for this LIQUID BASED CDT procedure are i n the results section. documented in this encounter Results Pap Smear (03/07/2004 8:33 AM CDT) [facility] Method Time Signature PAP Smear SEE TEXT No normal HP CONVERSION Liquid Based range Comment: Patient: CLIFF URIBE ? CERVICAL CYTOLOGY REPORT Pathology # ??[id number] ?Date Obtained: ? Date Received: CYTOLOGIC IMPRESSION: Negative for intraepithelial lesion or m alignancy. ? LINA TIONAL DATA LMP: CLINICAL HIST ? PREV PAP NORM 8-27-0 3,ACC 53495 LIQUID BASED PAP CERVICAL SPECIMEN ADEQUACY: ?? Satisfactory. ENDOCERVICAL CELLS: ??Present. Verified 03/15/04 by: ??LKR ?(electronic signature) Specimen (Source) Anatomical Collection Method Collection Time Re ceived Time Location / / Volume Laterality 03/07/2004 8:33 AM CDT Dory Salgado MD LAB_1 Performing Organization Address City/State/ZIP Code Phon e Number HP CONVERSION documented in this encounter Visit Diagnoses Not on filedocumented in this encounter Care Teams Neurologist Relationship Specialty Start Date End Date Dory Salgado MD PCP - General 08/19/10 [address] [facility] 5th [place] [address] documented as of this encounter
--- OUTSIDE RECORDS SUMMARY | 2022-04-03 11:30 | XMS_ITS | Encounter Summary ---
:1970 Author Organization [facility] Address [address] [place] [address] Care Team Providers Name Role Phone Unassigned, Provider Primary Care Provider Unavailable Encounter Details Date Type Department Care Team Description 11/11/2003 Office Visit [facility] URTIC[place] [address] [place], [place] [address] Social History Tobacco Use Types Packs/Day Years Used Date Smoking Tobacco: Never Assessed Sex Assigned at Date Recorded Not on file documented as of this encounter Last Filed Vital Signs Vital Sign Reading Time Taken Comments Blood Pressure 102/62 11/11/2003 10:30 AM CDT Pulse 78 11/11/2003 10:30 AM CDT Temperature 36.6 ??C (97.8 ??F) 11/11/2003 10:30 AM CDT Respiratory Rate 16 11/11/2003 10:30 AM CDT Oxygen Saturation - - Inhaled Oxygen Concentration - - Weight - - Height - - Body Mass Index - - documented in this encounter Progress Notes 11/11/2003 10:30 AM CDT Room # Rooming time: 10:35 AM Amoxicillin, Sulfa Drugs Current outpatient prescriptions:PREDNISONE 20MG ORAL TABS, , Disp: , Rfl: 0; DIPHENHYDRAMINE HCL (BENADRYL) 25MG ORAL CAPS, , Disp: , Rfl: 0 Joceline Uribe is here today for recheck of body rash, joint pain x 4 days. Accompanied by patient. History is obtained from patient. O2 Sat.: not done. Peak Flow: not done. AccuCheck: not done. Weight taken with patient clothed? not done. Temperature source: ORAL. Pulse source: radial B/P was : taken on the right arm. B/P cuff size:Regular. Tobacco Status reviewed? (see History Social-Substance) -NO Lives in a smoking environment : NO. Vision checked: not done, not performed. Last Tetanus: 1994, Immunizations up to date: YES. In the past year, have you been physically or emotionally mistreated by someone important to you? 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 Health Education given -NO. Primary provider: Provider Unassigned, Physician Contact phone number [phone] (home) Alternate phone number - Kourtney Riggs 11/11/2003 10:35 AM please give solumedral 125mg IM today. Roberto Giang MD S: Joceline Uribe is here for solu-medrol injection(s) given for rash. O: Injection(s) given, Dose 125mg, intramuscularly in the RIGHT gluteus. Lot # is [id number]. 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 A: Ordered per provider Roberto Giang MD, date of order11/11/03 Date of last injection 11/11/03. Patient tolerated injection well. P: Return to clinic as needed. Kourtney Riggs 11:34 AM 11/11/2003 Roberto Giang - 11/11/2003 12:00 AM CDTHISTORY OF PRESENT ILLNESS: The patient is a 33-year-old female who started with rash on her abdomen after jogging for three miles and exercising which spread to her upper extremities and was associated with difficulty breathing and tightness in her throat. The patient also had joint swelling and pain at that point. The patient was seen at the [facility] in [place] at which time she was given a Benadryl injection and a Prednisone course over 6 days. The patient states that her breathing improved and rash improved, however, persisted. The patient became concerned today when she woke up and rash was more intense and she had swelling in joints of her hands, wrists, knees, ankles and neck. The patient states that she has been taking 20 mg of Prednisone for the past two days per instructions along with Benadryl 25 mg once a day. The patient denies change in her soap, shampoo, detergent etc. She also denies having had any new foods or new sheets. She did have a perm on her hair two weeks ago which usually gives her a local reaction on her forehead, however, she did not have any of the above symptoms up until three days ago. She also denies having had any insect bites. The patient denies having any difficulty breathing or tightness in her throat today. Her other medications include Prozac which she has been taking for three years and a multivitamin. She is allergic to AMOXICILLIN and SULFA drugs. On physical examination the patient is alert and oriented times three. She is in no acute distress. Her blood pressure is 102/62, pulse is 78. Temperature is 97.8 HEENT exam: TMs are clear bilaterally. OP no erythema or exudate. No angioedema is noted. There is no rhinorrhea or nasal congestion. The rest of HEENT exam is within normal limits. The neck is supple without adenopathy. Lungs are clear to auscultation with good breath sounds bilaterally. Heart: Regular rate and rhythm without murmur. Normal S1, S2. Skin: Patient has diffuse, erythematous eruption which blanches to pressure and appears urticarial in nature. Also, examination of the joints, the patient does have minimal swelling of the joints of her fingers, hand and wrists. She has full range of motion of these joints. There appears to be no effusion and no increased warmth. As well as no erythema. ASSESSMENT AND PLAN: 1. Urticaria. This appears to be generalized and more then likely allergic in nature. At this point it is difficult to pinpoint the etiology of this as patient denied having any specific exposure to allergens and has not had any recent viral syndromes or chemical exposures. The patient was given Solu-Medrol 125 mg injection today in the clinic. She is advised to take Claritin 10 mg po b.i.d. for the next four days and then qd until her symptoms are completely resolved as Benadryl makes her drowsy. Her Prednisone course is also extended and patient is to take Prednisone 20 mg po b.i.d. times four days then 20 mg qd times four days then 10 mg qd times four days and then 10 mg qod times four days. The patient is advised to follow up with her primary care physician should her problem persist or return to clinic should her problems worsen. The patient is advised to seek medical attention should there be any difficulty breathing, wheezing or tightness in her throat. 11:37 A cc: documented in this encounter Plan of Treatment Not on filedocumented as of this encounter Visit Diagnoses Diagnosis Urticaria, unspecified documented in this encounter Care Teams Customer Success Manager Relationship Specialty Start Date End Date Unassigned, Provider PCP - General 05/08/01 08/18/[address] [place] [address] documented as of this encounter
--- OUTSIDE RECORDS SUMMARY | 2022-04-03 11:30 | XMS_ITS | Encounter Summary ---
:1970 [facility] Address [address] [place] [address] Care Team Providers Name Role Phone Dory Salgado MD Primary Care Provider Encounter Details Date Type Department Care Team Description 09/15/2010 PN Conversion Only [facility] Chivo Vigil MD Medicine [address] [facility] [address] [facility] [address] [place], [place] [address] [place], [place] [phone] (Wo rk) Social History Tobacco Use Types Packs/Day Years Used Date Smoking Tobacco: Never Assessed Sex Assigned at Date Recorded Not on file documented as of this encounter Plan of Treatment Not on filedocumented as of this encounter Visit Diagnoses Not on filedocumented in this encounter Care Teams Contracting Officer Relationship Specialty Start Date End Date Dory Salgado MD PCP - General 08/19/10 [address] [facility] 5th [place] [address] documented as of this encounter
--- OUTSIDE RECORDS SUMMARY | 2022-04-03 11:30 | XMS_ITS | Encounter Summary ---
:1970 [facility] Address [address] [place] [address] Care Team Providers Name Role Phone Dory Salgado MD Primary Care Provider Encounter Details Date Type Department Care Team Description 04/25/2004 PN Conversion Only NONDENOMINATIONAL CONVERSION Arline Salgado MD [address] [facility] [address]th [place] [address] (Wo rk) Social History Tobacco Use Types Packs/Day Years Used Date Smoking Tobacco: Never Assessed Sex Assigned at Date Recorded Not on file documented as of this encounter Plan of Treatment Not on filedocumented as of this encounter Procedures Procedure Name Priority Date/Time Associated Diagnosis Comme [facility] SURGICAL EDIN VERA Routine 04/25/2004 6:24 PM Re sults for this NICOLLET BOOKKEEPER ASSISTANT procedure are i n the results section. documented in this encounter Results Pathology Report (04/25/2004 6:24 PM BOOKKEEPER ASSISTANT) [facility] gist Method Time Signature Surgical SEE TEXT No normal HP CONVERSION Pathology range Comment: Patient: CLIFF MUIR ?S URGICAL PATHOLOGY REPORT Pathology # ??[id number] ?Date Obtained: ? Date Received: DIAGNOSIS: ?Breast, right, 1:00, ultrasound gu ided needle biopsies: ?1. Fibroadenoma. ?2. No evidence of atypical hyperpl moises or malignancy in surrounding breast ? tissue. ?Gianni Medley M.D. ?(electronic signature) JSM/JSM/blm Date of Report: 04/26/04 Pathology # ??[id number] ?Date Obtained: ? Date Received: ORGAN/TISSUE SITE: ?1:00 region of the right breast GROSS DESCRIPTION: ?Received in formalin are multiple soft cores and fragments of fibrofatty ?breast tissue aggregating 1.1 x 0. 6 x 0.2 cm, which are filtered and ?submitted in 1 block. L/c MICROSCOPIC DESCRIPTION: ?The microscopic examination substa ntiates the diagnosis cited. Specimen (Source) Anatomical Collection Method Collection Time Re ceived Time Location / / Volume Laterality 04/25/2004 6:24 PM BOOKKEEPER ASSISTANT Dory Salgado MD LAB_1 Performing Organization Address City/State/ZIP Code Phon e Number HP CONVERSION documented in this encounter Visit Diagnoses Not on filedocumented in this encounter Care Teams Tank Truck Mechanic Relationship Specialty Start Date End Date Dory Salgado MD PCP - General 08/19/10 [address] [facility] 5th [place] [address] documented as of this encounter
--- OUTSIDE RECORDS SUMMARY | 2022-04-03 11:30 | XMS_ITS | Encounter Summary ---
:1970 Author Organization [facility] Address [address], [place] [address] Care Team Providers Name Role Phone Dory Salgado MD Primary Care Provider Encounter Details Date Type Department Care Team Description 04/02/2004 PN Conversion Only [facility] [address] [facility] [place] [address] Social History Tobacco Use Types Packs/Day Years Used Date Smoking Tobacco: Never Assessed Sex Assigned at Date Recorded Not on file documented as of this encounter Plan of Treatment Not on filedocumented as of this encounter Procedures Procedure Name Priority Date/Time Associated Diagnosis Comme nts MR BREAST BILAT Routine 04/02/2004 9:39 AM Result s for this W/WO IV CONT DIAG CARGO WORKER procedure are in the results section. documented in this encounter Results MR Breast Bilat W/WO IV Cont Diag (04/02/2004 9:39 AM CARGO WORKER) Anatomical Region Laterality Modality Breast, Other Bilateral Magnetic Resonance Specimen (Source) Anatomical Location Collection Method / Collectio n Time Received Time / Laterality Volume Narrative 04/02/2004 9:39 AM CARGO WORKER INDICATION: ??Strong family history of breast carcinoma. ??Mother at age 48. ??Sister at age 43 and possible maternal grandmother age 40 to 45. TECHNIQUE: ??Patient was first placed gallegos pine within the body coil and coronal STIR imaging of the chest parall el to the sternum was performed pregadolinium. ??She was then placed prone with her breasts dependent within dedicated breast coil a nd high resolution T1 and T2-weighted STIR sequences were obtained in the axial plane pregadolinium. ??For dynamic portion of the study, one coronal T1-weighted sequence was obtained before and four sequences were obtained after uneventful IV injection o f 20 ml of Magnevist. ??Final sequence was an axial VIEWS obtained pos tgadolinium. ??Images and enhancement data were viewed, reconstruc eduardo, and interpreted with the aid of Leevia system. FINDINGS: ??In the upper inner posterior right breast at about the 1 o'clock position there is a smoothly mar ginated slightly heterogeneously enhancing mass which has an in-plane diameter of 0.94 x 0.48 cm and a Z diameter of 0.99 cm in the anterior posterior direction. ??Angiovolume is 0.32 cc. ??C urve peak is at 134.7% and composition is 100% persistent type. ??T his has morphologic and enhancement characteristics which would suggest that it is probably benign but given strong family history i t would probably be prudent to performed second-look ultrasound with biopsy of any identifiable target. ??The remainder of the right gualberto ast and the left breast show scattered areas of almost certainly phys iologic enhancement especially in the upper outer quadrants. ??On T2-weighted STIR, VIEWS, and precontrast high resolution T1 there is a large amount of dense breast tissue bilaterally and symmetrica lly within relatively large breasts. ??This does slightly reduce sen sitivity and specificity. The small smoothly marginated mass in th e upper medial posterior portion of the right breast at approxima tely the 1 o'clock position is bright on T2-weighted STIR and dark o n precontrast high resolution T1. ??A combination of all of these morp hologic and enhancement characteristics would suggest that it is likely a benign fibroadenoma or perhaps a benign intramammary lymph n ode although I would nurse clinician this latter possibility to be less likel y. On Stir Chest in coronal plane no suspic ious signal is seen within either axilla, internal mammary region, remainder of the chest, visible skeleton, or visible portion of the upper abdomen. ??Normal size lymph nodes with nonsuspicious arch itecture are noted within both axillary regions. CONCLUSION: ? 1. At the 1 o'clock position, zon e 2, posteriorly within the right breast there is a probably benign persistently enhancing mass which deserves further evaluation with s econd-look ultrasound and biopsy if target can be identified given the patient's strong family history. ??If this cannot be identified on ultrasound, MRI followup in six months would be recommended. ? 2. No evidence of malignancy with in the left breast although there are scattered areas of physiologic enhancement bilaterally. ? 3. No evidence of metastasis or o ther suspicious finding on coronal STIR imaging of the chest. Right Breast: ??ACR-BIRADS CATEGORY 0: ? ?Need additional imaging evaluation ??(3). Left Breast: ??ACR-BIRADS CATEGORY 2: ?? Benign finding. RECOMMENDATION: ??Second-look targeted u ltrasound of the right breast as discussed in detail above. [id number]/s Dictating WILLAM MENDOZA Physician Procedure Note Willam Fields MD - 07/21/2016Form atting of this note might be different from the original. INDICATION: Strong family history of gualberto ast carcinoma. Mother at age 48. Sister at age 43 and possible ma ternal grandmother age 40 to 45. TECHNIQUE: Patient was first placed supi ne within the body coil and coronal STIR imaging of the chest parall el to the sternum was performed pregadolinium. She was then pl aced prone with her breasts dependent within dedicated breast coil a nd high resolution T1 and T2-weighted STIR sequences were obtained in the axial plane pregadolinium. For dynamic portion of th e study, one coronal T1-weighted sequence was obtained before and four sequences were obtained after uneventful IV injection o f 20 ml of Magnevist. Final sequence was an axial VIEWS obtained pos tgadolinium. Images and enhancement data were viewed, reconstruc eduardo, and interpreted with the aid of Leevia system. FINDINGS: In the upper inner posterior r ight breast at about the 1 o'clock position there is a smoothly mar ginated slightly heterogeneously enhancing mass which has an in-plane diameter of 0.94 x 0.48 cm and a Z diameter of 0.99 cm in the anterior posterior direction. Angiovolume is 0.32 cc. Curve peak is at 134.7% and composition is 100% persistent type. Thi s has morphologic and enhancement characteristics which would suggest that it is probably benign but given strong family history i t would probably be prudent to performed second-look ultrasound with biopsy of any identifiable target. The remainder of the right breas t and the left breast show scattered areas of almost certainly phys iologic enhancement especially in the upper outer quadrants. On T2-weighted STIR, VIEWS, and precontrast high resolution T1 there is a large amount of dense breast tissue bilaterally and symmetrica lly within relatively large breasts. This does slightly reduce sensi tivity and specificity. The small smoothly marginated mass in th e upper medial posterior portion of the right breast at approxima tely the 1 o'clock position is bright on T2-weighted STIR and dark o n precontrast high resolution T1. A combination of all of these morpho logic and enhancement characteristics would suggest that it is likely a benign fibroadenoma or perhaps a benign intramammary lymph n ode although I would nurse clinician this latter possibility to be less likel y. On Stir Chest in coronal plane no suspic ious signal is seen within either axilla, internal mammary region, remainder of the chest, visible skeleton, or visible portion of the upper abdomen. Normal size lymph nodes with nonsuspicious arch itecture are noted within both axillary regions. CONCLUSION: 1. At the 1 o'clock position, zone 2, p osteriorly within the right breast there is a probably benign persistently enhancing mass which deserves further evaluation with s econd-look ultrasound and biopsy if target can be identified given the patient's strong family history. If this cannot be identified on ultrasound, MRI followup in six months would be recommended. 2. No evidence of malignancy within the left breast although there are scattered areas of physiologic enhancement bilaterally. 3. No evidence of metastasis or other s uspicious finding on coronal STIR imaging of the chest. Right Breast: ACR-BIRADS CATEGORY 0: Nee d additional imaging evaluation (3). Left Breast: ACR-BIRADS CATEGORY 2: Erlin gn finding. RECOMMENDATION: Second-look targeted ult rasound of the right breast as discussed in detail above. Tss/[id number] Dictating WILLAM MENDOZA Physician Dory Salgado MD RAD MRI documented in this encounter Visit Diagnoses Not on filedocumented in this encounter Care Teams Size Roller Operator Relationship Specialty Start Date End Date Dory Salgado MD PCP - General 08/19/[address] [facility] 5th [place] [address] documented as of this encounter
--- OUTSIDE RECORDS SUMMARY | 2022-04-03 11:30 | XMS_ITS | Encounter Summary ---
:1970 Author Organization [facility] Address [address] [place] [address] Care Team Providers Name Role Phone Dory Salgado MD Primary Care Provider Encounter Details Date Type Department Care Team Description 04/11/2005 PN Conversion Only [facility] [address] [address] [place] [address] Social History Tobacco Use Types Packs/Day Years Used Date Smoking Tobacco: Never Assessed Sex Assigned at Date Recorded Not on file documented as of this encounter Plan of Treatment Not on filedocumented as of this encounter Visit Diagnoses Not on filedocumented in this encounter Care Teams Operations And Maintenance Specialist Relationship Specialty Start Date End Date Dory Salgado MD PCP - General 08/19/10 [address] [facility] 5th [place] [address] documented as of this encounter
--- OUTSIDE RECORDS SUMMARY | 2022-04-03 11:30 | XMS_ITS | Encounter Summary ---
:1970 Author Organization [facility] Address [address] [place] [address] Care Team Providers Name Role Phone Dory Salgado MD Primary Care Provider Reason for Visit Reason Comments Procedure Encounter Details Date Type Department Care Team Description 06/10/[address] [facility] [address] Procedure [address] [place] [address] Social History Tobacco Use Types Packs/Day Years Used Date Smoking Tobacco: Never Assessed Sex Assigned at Date Recorded Not on file documented as of this encounter Progress Notes Adriana Retana PA-C - 06/10/2017 10:00 AM CST PREPROCEDURE DIAGNOSES: 1. Neurogenic bladder s/t cervical spine disease. 2. Urinary urgency. 3. Urinary frequency. POSTPROCEDURE DIAGNOSES: 1. Neurogenic bladder s/t cervical spine disease. 2. Unable to assess true cystometric capacity s/t detrusor instability; maximum instilled volume 160mL. 3. Excellent bladder compliance; baseline filling Pdet was essentially zero. 4. Detrusor instability; multiple uninhibited detrusor spasms observed during filling, urgency with spasms 5-15 cm H2O, large volume UUI with spasm measuring Pdet 60 cm H2O. 5. Urge urinary incontinence, large volume. 6. No stress leak at Pabd 85 cm H2O at 140 mL. 7. Good terminal detrusor function with successful bladder emptying; terminal Pdet 77 cm H2O, voidedvolume 160 mL, Qmax 15.7 mL/sec, PVR 0 mL. 8. 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 This may be situational given EMG quiets about half way through terminal detrusor contraction. Clinical correlation necessary. PROCEDURE: 1. Uroflowmetry. 2. Sterile urethral catheterization for measurement of postvoid residual urine volume. 3. Complex filling cystometrogram with measurement of bladder and rectal pressures. 4. Complex voiding cystometrogram with measurement of bladder and rectal pressures. 5. Electromyography of the pelvic floor during urodynamics. 6. Interpretation of urodynamics. INDICATIONS FOR PROCEDURE: Ms. Joceline Uribe is a pleasant 47 y.o. 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 I last saw Joceline in February 2017; at that time oxybutynin was helpful but led to retention/CIC/UTI. Myrbetriq 25 mg was advised and was found to be helpful. Joceline presents today for a baseline urodynamic assessmentto better characterize her voiding dysfunction. Interval HPI update: Joceline continues to make functional gains. She is often times double voiding in an effort to feel empty. Typically she'll wait on the toilet for about 5 minutes and will then have another burst of flow. If she doesn't wait, she won't feel empty and will end up right back in the bathroom. Difficulty relaxing in order to void. Maintained on Myrbetriq 25 mg, last taken yesterday. This drug is well tolerated and has been helpful. Doing pelvic floor PT through [facility], which has also been helpful. The patient has developed prolapse of her uterus, no vaginal bulge, no manual reduction, occasional pelvic pressure. Wearing right AFO and using crutches. Voiding q2-3 hours, nocturia x 1-3. No nocturnal enuresis. Occasional leakage with prolonged walking and during PT. No leakage with laughing, coughing or sneezing. Wearing a Depend brief when out of the house just in case. Wearing a Poise pad when at home. Bowels for the most part are regular; two prior episodes of fecal incon tinence. Good bladder days and bad bladder days - when leg spasms are worse, the bladder tends to act up more. DESCRIPTION OF PROCEDURE: Risks, benefits, and alternatives to urodynamics were discussed with the patient and she wished to proceed. Urodynamics are planned to better assess the primary etiology for Ms. Uribe's urologic dysfunction. The patient last took Myrbetriq ~16 hours ago. After verbal consentwas obtained, the patient was taken to the procedure room where uroflowmetry was performed. UROFLOWMETRY: Voided volume: 43.5 mL. Maximum flow rate: 5.7 mL/sec. Average flow rate: 3.2 mL/sec. Postvoid residual by catheter: 30 mL. Character of the curve: Blunted, however, voided volume is too low to characterize with certainty. Pretest urine dipstick was negative for leukocytes and nitrites. Next a 7F double-lumen urodynamics catheter was inserted into the bladder. A 7F rectal manometry catheter was placed in the rectum. EMG pads were placed on either side of the anal verge. The bladder was filled with NS at 50 mL/minute and serial pressures were recorded. With coughing there was an appropriate rise in vesical and abdominal pressures with no change in detrusor pressure, confirming good study catheter placement. DURING THE FILLING PHASE: First Sensation: 7 mL. First Desire: 100 mL just prior to onset of detrusor instability. Strong Desire: ~120 mL with detrusor instability. Maximum Capacity: ~160 mL. Uninhibited detrusor contractions: Yes, there were several small uninhibited spasms measuring Pdet 5-15 cm H2O observed during filling. These were associated with urgency w/o incontinence. A large uninhibited detrusor spasm measuring Pdet 60 cm H2O occurred at a volume of ~120 mL and was associated with urgency and large volume urge leakage measuring 112 mL. Compliance: Excellent, baseline Pdet was close to zero. Continence: No stress leak at Pabd 85 cm H2O at a volume of ~140 mL. EMG: Grossly concordant during filling. DURING THE VOIDING PHASE: Detrusor Contraction: 77 cm of H2O pressure. Voided volume: 160 mL. Maximum flow rate: 15.7 mL/sec. Average flow rate: 6.4 mL/sec. Postvoid Residual: 0 mL. Detrusor sphincter dyssynergia: Yes, EMG is moderate increased during voiding. However, strong terminal Pdet still allows for Qmax 15.7 mL/sec, successful emptying and a plateau-shaped flow curve. ICS nomogram: Borderline equivocal/obstructed. ASSESSMENT/PLAN: Ms. Joceline Uribe is a pleasant 47 y.o. female with NGB s/t cervical spine diseasewith c/o irritative LUTS who demonstrated the following findings today on urodynamic evaluation: 1. Neurogenic bladder s/t cervical spine disease. 2. Unable to assess true cystometric capacity s/t detrusor instability; maximum instilled volume 160mL. 3. Excellent bladder compliance; baseline filling Pdet was essentially zero. 4. Detrusor instability; multiple uninhibited detrusor spasms observed during filling, urgency with spasms 5-15 cm H2O, large volume UUI with spasm measuring Pdet 60 cm H2O. 5. Urge urinary incontinence, large volume. 6. No stress leak at Pabd 85 cm H2O at 140 mL. 7. Good terminal detrusor function with successful bladder emptying; terminal Pdet 77 cm H2O, voidedvolume 160 mL, Qmax 15.7 mL/sec, PVR 0 mL. 8. 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 This may be situational given EMG quiets about half way through terminal detrusor contraction. Clinical correlation necessary. Joceline and I had a good discussion about her UDS findings and her voiding symptoms. With the Myrbetriq, Joceline reports little in the way of urge leakage episodes or bladder spasms. She is wearing a pad predominantly just in case. We discussed that going up to 50 mg on the Myrbetriq would be reasonableshould irritative LUTS worsen/progress. Fortunately, the patient's bladder compliance is excellent. Despite some possible detrusor sphincterdyssynergia, terminal Pdet is strong and the patient was able to successfully empty - which is favorable. RBUS in 02/2017 showed bilateral renal cysts and was otherwise negative. I did a exam today on Joceline to assess her c/o pelvic organ prolapse. There appears to be grade 1-2 uterine prolapse with decent vaginal vault support. No significant cystocele. Patient evaluated in the supine position during cough and sustained Valsalva. The patient was able to localize her pelvic floor but tone was very weak. I agree that pelvic floor physical therapy and consideration of a vaginal pessary makes a lot of sense prior to consideration of surgical intervention. - A single nitrofurantoin 100 mg capsule was provided for UTI prophylaxis following completion of today's study. - Patient should have annual renal bladder ultrasounds x 5 years; if no evidence of upper tract damage may extend imaging screening interval to q2-3 years. - Patient elects to follow with her local provider; she is certainly more than welcome to return to [facility] urology should she have any additional trouble. Sincerely, Rebeka Retana PA-C Department of Urologic Surgery ANALYSIS MANAGER documented in this encounter Plan of Treatment Not on filedocumented as of this encounter Procedures Procedure Name Priority Date/Time Associated Diagnosis Comme nts URO COMPLEX CYSTOMETROGRAM Routine 06/10/2017 2:48 PM Ur inary frequency VOIDING PRESSURE STUDY DATA ANALYSIS MANAGER Neurogeni c bladder Detrusor instabi lity Urinary urgency Cervical spine disease URO VOIDING PRESS STUDY Routine 06/10/2017 2:48 PM Urina ry frequency INTRA-ABDOMINAL DATA ANALYSIS MANAGER Neurogenic bladd er Detrusor instabi lity Urinary urgency Cervical spine disease URO UROFLOW CLINIC Routine 06/10/2017 2:48 PM Urinary fr equency DATA ANALYSIS MANAGER Neurogenic bladd er Detrusor instabi lity Urinary urgency Cervical spine disease URO PATCH EMG Routine 06/10/2017 2:48 PM Urinary frequ ency DATA ANALYSIS MANAGER Neurogenic bladd er Detrusor instabi lity Urinary urgency Cervical spine disease documented in this encounter Visit Diagnoses Diagnosis Neurogenic bladder - Primary Neurogenic bladder, NOS Urinary frequency Detrusor instability Other functional disorder of bladder Urinary urgency Urgency of urination Cervical spine disease Unspecified musculoskeletal disorders an d symptoms referable to neck documented in this encounter Care Teams Mixer Tender Relationship Specialty Start Date End Date Dory Salgado MD PCP - General 08/19/10 [address] [facility] 5th [place] [address] documented as of this encounter
--- OUTSIDE RECORDS SUMMARY | 2022-04-03 11:30 | XMS_ITS | Encounter Summary ---
:1970 Author Organization [facility] Address [address] [place] [address] Care Team Providers Name Role Phone Unassigned, Provider Primary Care Provider Unavailable Encounter Details Date Type Department Care Team Description 11/11/2003 Correspondence None Unknown, Physici an CONSENT AND RELEASE [address] [place] [address] (Wo rk) Social History Tobacco Use Types Packs/Day Years Used Date Smoking Tobacco: Never Assessed Sex Assigned at Date Recorded Not on file documented as of this encounter Progress Notes Unknown, Physician - 11/11/2003 12:00 AM CDT documented in this encounter Plan of Treatment Not on filedocumented as of this encounter Visit Diagnoses Not on filedocumented in this encounter Care Teams Manager Spa Relationship Specialty Start Date End Date Unassigned, Provider PCP - General 05/08/01 08/18/[address] [place] [address] documented as of this encounter
--- OUTSIDE RECORDS SUMMARY | 2022-04-03 11:30 | XMS_ITS | Encounter Summary ---
:1970 Author Organization [facility] Address [address] [address] Care Team Providers Name Role Phone Dory Salgado MD Primary Care Provider Reason for Visit Reason Onset Date Comments Refill 07/31/2017 Encounter Details Date Type Department Care Team Description 07/31/2017 Refill [facility] [address] Adriana Persaud PA-C Refill [address] [place] [address] [place], [place] [id number] (Wo rk) Social History Tobacco Use Types Packs/Day Years Used Date Smoking Tobacco: Never Assessed Sex Assigned at Date Recorded Not on file documented as of this encounter Nursing Notes Adriana Scott PA-C - 07/31/2017 3:18 PM CDT From: Joceline Uribe To: Adriana Scott PA-C Sent: 07/31/2017 1:44 PM CDT Subject: Medication Renewal Request Original authorizing provider: MALENA Ortega Ronald Rony would like a refill of the following medications: mirabegron (MYRBETRIQ) 25 MG 24 hour release tablet [Adriana Scott PA-C] Preferred pharmacy: Other - [facility] [place] [address] Comment: Need a refill, please. [facility] [place] [address] documented in this encounter Plan of Treatment Not on filedocumented as of this encounter Visit Diagnoses Diagnosis Urinary urgency Urgency of urination Urinary frequency documented in this encounter Care Teams Jig Grinder Relationship Specialty Start Date End Date Dory Salgado MD PCP - General 08/19/10 [address] [facility] [address]th [place] [address] documented as of this encounter
--- OUTSIDE RECORDS SUMMARY | 2022-04-03 11:30 | XMS_ITS | Encounter Summary ---
:[address] [facility] Address [address], [place] [address] Care Team Providers Name Role Phone Dory Salgado MD Primary Care Provider Encounter Details Date Type Department Care Team Description 01/11/2003 PN Conversion Only COMPUTER SYSTEMS DESIGN ANALYST [address] Dory Salgado MD [address] [facility] [address] [facility] [address]th [place] [phone] (Wo rk) Social History Tobacco Use Types Packs/Day Years Used Date Smoking Tobacco: Never Assessed Sex Assigned at Date Recorded Not on file documented as of this encounter Plan of Treatment Not on filedocumented as of this encounter Procedures Procedure Name Priority Date/Time Associated Comments Diagnosis ANATOMICAL PATH Routine 01/11/2003 1:38 PM Result s for this LIQUID BASED CDT procedure are i n the results section. documented in this encounter Results Pap Smear (01/11/2003 1:38 PM CDT) [facility] Method Time Signature PAP Smear SEE TEXT No normal HP CONVERSION Liquid Based range Comment: Patient: CLIFF URIBE ? CERVICAL CYTOLOGY REPORT Pathology # ??[id number] ?Date Obtained: ? Date Received: [id number] LMP: ?12-25-02 CLINICAL HIST ? PREV NROM 12-17,ACC C 02 [address] ?CERVICAL CA 1 990 LIQUID BASED PAP CERVICAL SPECIMEN ADEQUACY: ?? Satisfactory. ENDOCERVICAL CELLS: ??Present. CYTOLOGIC IMPRESSION: Negative for intraepithelial lesion or m alignancy. Verified 01/17/03 by: ??S_V ?(electronic signature) Specimen (Source) Anatomical Collection Method Collection Time Re ceived Time Location / / Volume Laterality 01/11/2003 1:38 PM CDT Dory Salgado MD LAB_1 Performing Organization Address City/State/ZIP Code Phon e Number HP CONVERSION documented in this encounter Visit Diagnoses Not on filedocumented in this encounter Care Teams Clerk Stenographer Relationship Specialty Start Date End Date Dory Salgado MD PCP - General 08/19/10 [address] [facility] [address]th [place] [address] documented as of this encounter
--- OUTSIDE RECORDS SUMMARY | 2022-04-03 11:30 | XMS_ITS | Encounter Summary ---
:1970 [facility] Address [address] [place] [address] Care Team Providers Name Role Phone Dory Jacome MD Primary Care Provider Encounter Details Date Type Department Care Team Description 03/07/2004 Office Visit [facility] [address] Dory Jacome MD Obstetrics/Gynecolog y [address] [facility] 5th [place] [address] [phone] Social History Tobacco Use Types Packs/Day Years Used Date Smoking Tobacco: Never Assessed Sex Assigned at Date Recorded Not on file documented as of this encounter Progress Notes Dory Jacome MD - 03/07/2004 12:01 AM CDT Progress Notes signed by Dory Jacome MD at 03/07/04 1657 Author: Dory Jacome MD Service: (none) Author Type: Physician Filed: 09/06/10 0156 Note Time: 03/07/04 0001 Status: Signed Mill Laborer: Dory Jacome MD (Physician) NAME: CLIFF MUIR MR: [id number] ACCT: [id number] VISIT: [id number] DICTATING CLINICIAN: DORY JACOME MD JOB: [id number] CLINIC PROGRESS NOTE DATE OF VISIT: 03/07/2004 SUBJECTIVE: Chief Complaint: Here for an annual exam. HISTORY OF PRESENT ILLNESS: The patient is a 33-year-old female, G2, P2-0-0-2, with an LMP of 02/19/04, who comes in for an annual exam. The patient was seen by myself in 12/2002 for the same. Essentially she has had an uneventful year from a health standpoint. She has undergone just recently a PRK bilaterally in both eyes. She had her IUD removed last year, and since she has had no problems with breakthrough bleeding or heavy menstrual periods. She gets her period approximately every month. She does occasionally have a spot when she has deep penetration with intercourse but no spontaneous bleeding. The patient's sister is in her 40s and has recently undergone radiation and chemotherapy for breast cancer. The patient has a very strong family history. Refer to family history in dictation. She did go to genetic counseling, and her sister decided to have the genetic testing done. The verbal report was that they are BRCA1/2 negative. The patient has not seen the actual written report. The genetics counselor did recommend, however, that she have at least a baseline MRI of the breast. The patient had a mammogram last year. Past medical illnesses: (1) Depression. (2) Abnormal Pap smear with laser treatment. Is uncertain whether it was carcinoma in situ or high grade dysplasia. The patient's records are not available to me. 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 She is a nonsmoker. Minimal caffeine use. Had been exercising regularly until about a month ago but plans to resume this after her eyes have recovered. Does do self-breast examination. 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 Onset of menses at age 11 to 12. Cycles 28 to 30 days. Again, question of an abnormality on her Pap smear with laser treatment in 1989. Chlamydia in 1988 which was treated. IUD in the past. Currently not using anything for contraception. Does use daily folic acid. Is aware that she could potentially conceive. Had two full term vaginal deliveries without complications. FAMILY HISTORY: Mother breast cancer, at age 52, diagnosed at age 48. Father bladder and lung cancer, at age 60. Sister recently diagnosed at age 43 with breast cancer. Maternal grandmother at a young age, and the etiology is unknown, but they suspect possible breast cancer. REVIEW OF SYSTEMS: Unless otherwise noted, denies any other problems with heart, lungs, thyroid, gallstones, kidney stones, heart murmur, changes in her bowel or bladder habits, blood in the urine or the stool, shortness of breath or chest pain. MEDICATIONS: She is on fluoxetine 20 mg a day and a multivitamin. ADR/ALLERGIES: AMOXICILLIN AND SULFUR BASED ANTIBIOTICS. OBJECTIVE: VS: BP: 114/68. Ht: 5 ft. 5 in. Wt: 198 lb. NECK: No thyromegaly. No cervical or clavicular adenopathy. LUNGS: Clear to auscultation. CARDIOVASCULAR: Regular rate and rhythm with no audible murmurs. BREASTS: Examined sitting as well as the lying position, no axillary adenopathy. No masses, dimpling, or nipple discharge. The patient states that she had an area on her right breast at approximately the 9 o'clock position which was swollen and tender with the last several cycles. It has recently resolved. No nipple discharge again as stated. ABDOMEN: Soft, nontender. No palpable masses. EXTREMITIES: No edema. Normal deep tendon reflexes. Strength was normal grossly. PELVIC: Normal external genitalia including the vulva, urethra, and rectum. Speculum revealed a normal appearing cervix. Pap smear was obtained. No lesions visualized. Bimanual exam: Midline, anteverted, mobile uterus. No palpable adnexal masses. Rectal exam: No palpable masses. ASSESSMENT: 1. Normal gynecologic exam. 2. Very strong family history of breast cancer. 3. Potentially BRCA1, CA2 negative. Results pending. 4. History of depression. PLAN: As recommended by Dr. Gallegos, I have ordered an MRI of the breast. The patient is going to check to see if her insurance will cover this for her. If not, at a minimum she needs to have a mammogram. She was instructed to have them on a yearly basis. Again, from a contraceptive standpoint, she is choosing not to use anything. I again encouraged her to use folic acid regularly. We talked about preconceptual issues and what to avoid in early . If the area on her right breast returns and persists, she will let me know. MAC:[id number] C: 03/07/04 13:50 DOCUMENT: [id number] documented in this encounter Plan of Treatment Not on filedocumented as of this encounter Visit Diagnoses Not on filedocumented in this encounter Care Teams Title Investigator Relationship Specialty Start Date End Date Dory Jacome MD PCP - General 08/19/10 [address] [facility] 5th [place] [address] documented as of this encounter
--- OUTSIDE RECORDS SUMMARY | 2022-04-03 11:30 | XMS_ITS | Encounter Summary ---
:1970 [facility] Address [address] [address] Care Team Providers Name Role Phone Dory Salgado MD Primary Care Provider Encounter Details Date Type Department Care Team Description 01/11/2003 PN Conversion Only [facility] [address] Corine Salgado cia, MD Obstetrics/Gynecolog y [address] [facility] [address] [place] [address] [phone] Social History Tobacco Use Types Packs/Day Years Used Date Smoking Tobacco: Never Assessed Sex Assigned at Date Recorded Not on file documented as of this encounter Progress Notes Dory Salgado MD - 01/11/2003 12:01 AM CDT Progress Notes signed by Dory Salgado MD at 04/06/03 0726 Author: Dory Salgado MD Service: (none) Author Type: Physician Filed: 09/05/10 1632 Note Time: 01/11/03 0001 Status: Signed Road Hogger Operator: Dory Salgado MD (Physician) NAME: DADA MUIR MR: [id number] ACCT: [id number] VISIT: [id number] DICTATING CLINICIAN: DORY SALGADO MD JOB: [id number] CLINIC PROGRESS NOTE DATE OF VISIT: 01/11/2003 SUBJECTIVE: : 1970. Chief Complaint: Here for annual exam. HISTORY OF PRESENT ILLNESS: The patient is a 32-year-old female -0-0-2, with LMP of 12/25/02, who comes in for annual gynecologic exam. I had actually seen patient in 10/2002 for IUD removal. At that time, she was having some irregular bleeding. Please refer to that dictation. Since the IUD was removed, she has had two normal menstrual periods approximately 30 days apart. No breakthrough bleeding or spotting. She is currently using condoms for contraception. The patient has been on a diet, but over the last four months has lost 20 pounds. She states it is nothing extreme, just general good eating habits. She has not had a change in her exercise level. Of important note is the fact that her sister has recently been diagnosed with breast cancer. She is 43 years old and underwent a lumpectomy and will be having radiation and chemotherapy. Her mother also of breast cancer at age 52 and was originally diagnosed at age 48. She has no maternal aunts. There is no other family history of breast, colon, uterine, or ovarian cancer. MEDICATIONS: Fluoxetine 20 mg a day, multivitamin. PAST MEDICAL ILLNESSES: (1) Depression for which she is currently on medication and doing extremely well. It was exacerbated after her first child. She has never been hospitalized but has been followed with a therapist as well as a psychiatrist and now is currently just seeing the psychiatrist as needed for her medications. The patient again believes she is doing very well. (2) Questions of cervical cancer. The patient's records are not available to me, but she said she had early cervical cancer and had laser treatment in the spring. It is not clear whether she had a high grade abnormality or a carcinoma in situ. We will try to obtain records. She has had regular Pap smears since which have been normal. 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 She has two children, Fritz 4-1/2 and Gudelia 2-3/4. She is a nonsmoker, nondrinker. Minimal to no caffeine use. Does not exercise regularly. Is now doing breast self-examination on a regular basis. The patient did have a mammogram at approximately age 25. Has had none since. 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 Period cycles now with IUD gone are approximately 28 to 30 days. Has a history of abnormality in 1989 for which she had laser and has had regular Pap smears since. Had Chlamydia in 1988 which was treated and recultured and was negative. She had her IUD out in 10/2002. As stated, is using condoms for contraception. Had two full term vaginal deliveries. No complications. No high blood pressure or diabetes. FAMILY HISTORY: Mother breast cancer, at age 52, diagnosed at age 48. Father had bladder cancer and also lung cancer for which she at age 60. He did have asbestos exposure in his younger days. Sister, age 43, recently diagnosed with breast cancer. Her maternal grandmother when her mother was less than 20 years old, and they do not know the specific cause. However, they are suspicious for breast cancer. REVIEW OF SYSTEMS: Unless otherwise noted, denies any other problems with heart, lungs, thyroid, gallstones, kidney stones, heart murmur, changes in the bowel or the bladder habits, blood in the urine or the stool, shortness of breath, or chest pain. OBJECTIVE: VS: BP: 96/68. Ht: 5 ft. 5-1/2 in. Wt: 185 lb. NECK: No thyromegaly. No cervical or supraclavicular adenopathy. LUNGS: Clear to auscultation. CARDIOVASCULAR: Regular rate and rhythm. No audible murmurs. BREASTS: Examined sitting as well as lying position, no axillary adenopathy, no masses, dimpling, nipple discharge. ABDOMEN: Soft, nontender. No palpable masses. EXTREMITIES: No edema. Normal deep tendon reflexes. Strength was normal grossly. PELVIC: Normal external genitalia including the vulva, urethra, and rectum. Sterile speculum revealed a normal appearing cervix. Pap smear was obtained. Adequate anterior and posterior vaginal support. Bimanual exam: Midline anteverted mobile uterus. No palpable adnexal masses. ASSESSMENT: 1. Normal gynecologic exam. 2. High familial risks for breasts or ovarian cancer syndrome. PLAN: Pap smear was obtained. The patient and I had a discussion regarding possible genetic counseling. The patient has thought very seriously about doing so. To be of maximum benefit, it would be helpful for her sister to be the one to be tested if she should have a BRCA1/BRCA2 mutation test. The patient has brought this up with her sister. However, they have not discussed it in great more detail. She would like to proceed with a consultation in the genetics department and take it from there. Dada and I also discussed that there are many implications of having such testing done which go beyond her but also to her extended family and children. She is aware of this and would like to explore the option. TT: CT: [id number] C: 01/11/03 14:39 DOCUMENT: [id number] OR MILITARY ANALYST Alannah Howard - 12/12/2002 12:01 AM CDT Phone Note signed by Alannah Howard at 02/01/03 0810 Author: Alannah Howard Service: (none) Author Type: Resource Filed: 01/11/03 0000 Note Time: 12/12/02 0001 Status: Signed Road Hogger Operator: Alannah Howard (Resource) NAME: DADA MUIR MR: [id number] ACCT: DICTATING CLINICIAN: ALANNAH HOWARD RN JOB: [id number] MENTAL HEALTH ONLINE PHONE CALL DATE: 12/12/02. : 1970. Record number [id number]. S/O: Phone call from patient noting that she has lost her prescription for Prozac. She has moved to the [facility]. She requests refills. ASSESSMENT: Lost prescription. PLAN: Refills of fluoxetine 20 mg, quantity 60 good until July of 2003 called into [facility] at [phone]. New address is [address] [place] [address], [address]. Phone number [phone]. SL:[id number] C: 12/12/02 20:39 DOCUMENT: [id number] Dory Salgado MD - 10/14/2002 12:01 AM CDT Progress Notes signed by Dory Salgado MD at 03/22/03 0354 Author: Dory Salgado MD Service: (none) Author Type: Physician Filed: 09/05/10 1507 Note Time: 10/14/02 0001 Status: Signed Road Hogger Operator: Dory Salgado MD (Physician) NAME: DADA MUIR MR: [id number] ACCT: [id number] VISIT: [id number] DICTATING CLINICIAN: DORY SALGADO MD JOB: [id number] CLINIC PROGRESS NOTE DATE OF VISIT: 10/14/2002 SUBJECTIVE: Chief Complaint: Here for IUD removal. HISTORY OF PRESENT ILLNESS: Patient is a 32-year-old female G2, P2-0-0-2 with LMP possibly at 10/13/02, who is here for IUD removal. Patient has a Ritu IUD placed in about eight months ago for contraceptive reasons. Also because she had heavier, longer menstrual periods. She initially did well in the first month; however, ever since her cycles have gotten longer and longer. She has a few days of heavy bleeding, but then the spotting may last up to three weeks. She saw Dr. Sandhu in the past. He tried a ten-day course of doxycycline without improvement. He also tried a two-month course of Nordette. Again she did well in the first month; however, had problems with spotting the second month of the oral contraceptives. Patient is frustrated and does not want to use this for contraceptive purposes any longer. She is requesting the IUD be removed. She and her will use condoms for contraception. She is due in 12/2002 for an annual Pap smear. OBJECTIVE: VS: BP: 104/68. Wt: 204 lb. ABDOMEN: Soft, nontender, no palpable masses. PELVIC EXAM: Normal external genitalia. Sterile speculum reveals normal appearing cervix and discharge. She had a large ectropion. IUD string was present. Ritu was removed very easily. Although the IUD was not visualized in the cervix, question whether it was high enough in the uterus considering the ease of removal. It almost appeared that it was not completely through the internal os; however, I cannot be certain of this. ASSESSMENT: Irregular spotting, bleeding since IUD placement, most likely secondary to the IUD. PLAN: Patient to followup for annual exam in the end of 12/2002. At that time we can evaluate whether she is doing well with the IUD out. If she is not, she needs to have further evaluation of the irregular bleeding. TT: CT: [id number] C: 10/14/02 14:54 DOCUMENT: [id number] OR MILITARY ANALYST Shun Torrez MD - 08/02/2002 12:01 AM CST Progress Notes signed by Shun Torrez MD at 08/09/02 0957 Author: Shun Torrez MD Service: (none) Author Type: (none) Filed: 09/05/10 1357 Note Time: 08/02/02 0001 Status: Signed Road Hogger Operator: Shun Torrez MD (Physician) NAME: DADA MUIR MR: [id number] ACCT: [id number] VISIT: [id number] DICTATING CLINICIAN: SHUN TORREZ MD JOB: [id number] MENTAL HEALTH ONLINE PROGRESS NOTE DATE OF VISIT: 08/02/2002 SUBJECTIVE: : 1970. Chart number [id number]. 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 It has been nearly a year since she was last seen. She is taking Prozac two tablets every other day and one on the alternate days. She reports that she forgets sequence quite frequently and is unsure whether she has taken two or one the previous day. She generally is feeling good most of the time although she does have some mild dips in moods at times. She is not experiencing any problem side effects from the Prozac. OBJECTIVE: This woman presents similar mental status to when last seen. She is alert, oriented times three and displays no apparent deficit in memory. Affect is variable and appropriate over a full range and mood appears euthymic. There is no suicidal ideation and she does not seem an imminent danger to self or others. There is no sign of formal thought disorder or cognitive deficit. Judgement appears intact. ASSESSMENT: 296.35, Major depressive disorder, recurrent, in partial remission. PLAN: I suggest that she go ahead and increase her dose of Prozac to two tablets every day. This may help the occasional low mood she has but will also eliminate the problem of remembering to vary the dose. I doubt that it will make a significant difference in side effects as the dose is still quite low. She is given a new prescription for fluoxetine 20 mg, 60 tablets, to be taken two p.o. q.a.m. I will see her back in one year or sooner if problems arise. The appointment was 15 minutes in length focused on medication management. TT: [address]: [facility]:[id number] C: 08/08/02 17:59 DOCUMENT: [id number] OR MILITARY ANALYST Gissel Sandhu MD - 07/12/2002 12:01 AM CST Progress Notes signed by Gissel Sandhu MD at 08/03/02 1820 Author: Gissel Sandhu MD Service: (none) Author Type: Physician Filed: 09/05/10 1334 Note Time: 07/12/02 0001 Status: Signed Road Hogger Operator: Gissel Sandhu MD (Physician) NAME: DADA MUIR MR: [id number] ACCT: [id number] VISIT: [id number] DICTATING CLINICIAN: GISSEL SANDHU MD JOB: [id number] CLINIC PROGRESS NOTE SUBJECTIVE: Dada is a 32-year-old para 2-0-0-2 woman, children are age two and four. CURRENT MEDICATIONS: Prozac 25 mg a day. ADR/ALLERGIES: AMOXICILLIN AND SULFA. Is a nonsmoker. Had an IUD placed by Dr. Jerod Tsai in February; this was a Mirena. Periods were okay at first. Previously in the past she had a one-week cycle, which was fairly heavy. 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 Used control pills satisfactorily in the past but had some mood swings. Patient really has no cramps. Would like to continue to use the IUD. OBJECTIVE: VS: BP: 110/70. Wt: 190 lb. ASSESSMENT: Prolonged menstruation with IUD in place. PLAN: I elected to treat her with 10 days of doxycycline 100 mg in case she has a low-grade endometritis and also cycled her with one month of Nordette oral contraceptive pills to see if this would make a difference. If it does not and this is a continued nuisance, she is to return for further consideration. TT: CT: [facility]:[id number] C: 07/12/02 15:09 DOCUMENT: [id number] OR MILITARY ANALYST Conversion, [facility] - 05/05/2002 12:01 AM CST Phone Note signed by at 05/05/02 1000 Author: [facility] Conversion Service: (none) Author Type: (none) Filed: 09/05/10 1202 Note Time: 05/05/02 0001 Status: Signed Road Hogger Operator: Imr Conversion IMPRESSION: f/u on mirena TO: JEROD TSAI FROM: MARCELA CARRILLO [id number] * PROVIDER MESSAGE: RETURN * 05/05/02 10:00AM * CALL REQUESTED * MESSAGE: mirena placed in feb. since * HOME PHONE:[phone] * iud placement periods have been * CONTACT PHONE:[phone] * prolonged. lmp 03/12-03/26 and lmp * dada * 04/09-04/23. since 04/23 has had * PHARMACY: [phone] * small amt spotting daily. patient * mahesh rosales hopkins * concerned about length of periods. requests that dr tsai call her at home. SUBJECTIVE: ALLERGIES/SENSITIVITIES... sulfa, amoxicillin 05/05/02 CURRENT MEDICATIONS... prozac 20 mg qd, mirena 05/05/02 PERTINENT PAST HISTORY... 05/05/02 WEIGHT: PATIENT IS NOT . PATIENT IS NOT NURSING. ASSESSMENT: f/u on mirena PLAN: DISPOSITION: NO DISPOSITION GIVEN CALL BY MARCELA CARRILLO 05/05/2002 09:50AM [id number] ADDENDUM: Jerod Ryan - 04/05/2002 12:01 AM CST Progress Notes signed by at 07/09/02 0001 Author: Jerod Tsai MD Service: (none) Author Type: Physician Filed: 09/05/10 1120 Note Time: 04/05/02 0001 Status: Signed Road Hogger Operator: Jerod Tsai MD (Physician) IMPRESSION: IUD surveillance. SUBJECTIVE: The patient is back for an IUD check. She had a Mirena IUD inserted on 02/22/02 by myself. She is back to follow up on this. Has had some persistent aching or pain in the pelvis. Has some cramping from the IUD. Otherwise, not having any particular problem. OBJECTIVE: Speculum exam shows the string to be somewhat shorter than I had indicated in my previous note. The bimanual examination is negative. ASSESSMENT: IUD surveillance. PLAN: CBC and sed rate were obtained which were normal. Recommended to her that she is anxious to continue with the IUD, and we will see her back on a p.r.n. basis. She has all the previous information from her last visit. TT: [address]: 15 minutes. PMM:[id number] C: 04/07/02 15:30 DOCUMENT: [id number] Jerod Ryan - 02/22/2002 12:01 AM CDT Progress Notes signed by Jerod Tsai MD at 03/02/02 1212 Author: Jerod Tsai MD Service: (none) Author Type: Physician Filed: 09/05/10 1019 Note Time: 02/22/02 0001 Status: Signed Road Hogger Operator: Jerod Tsai MD (Physician) IMPRESSION: IUD insertion. SUBJECTIVE: This patient is a 31-year-old female, para 2-0-0-2, in today for an IUD insertion. Children are ages 3-1/2 and 22 months, and they are with their mother today. LMP is May 12. Has been using condoms for control. Recently saw Dr. Block who described the risks and benefits of an IUD, and suggested the Mirena IUD. Discussed all this with the patient. She has not had an IUD before but understands the instructions and so forth and the concept quite well. I gave her the patient copy of the Mirena IUD. Emphasized to her that she read over the side effects, hazards, etc. MEDICATIONS: Her sole medication is Prozac. Please see Dr. Block's recent note. OBJECTIVE: VS: BP: 102/65. Ht: 5 ft. 5 in. Wt: 190. The IUD came from lot #[id number], and expiration date on the package for that packaging was December 2002. Following the bag sealer's instructions precisely, the Mirena IUD was inserted without incident. The string was trimmed about 2 cm from the external os. Cervix was then painted with Betadine and was steadied with a single-tooth tenaculum. ASSESSMENT: IUD insertion. PLAN: Return in six or seven weeks to see me or Dr. Block between periods. She should check herself to make sure the IUD is in place. She understands it is possible to pass the IUD without any cramping and so forth, so for the first few months at least, she should check herself frequently, and she understands that. Answered her questions. She has my card. Will see her back in about six weeks. The patient received a purse card which noted this needs to be removed in five years. TT: CT: [id number]:[id number] C: DOCUMENT: [id number] Thomas Ferrer MD - 02/10/2002 12:01 AM CDT Progress Notes signed by Thomas Block MD at 07/06/02 0818 Author: Thomas Block MD Service: (none) Author Type: Physician Filed: 09/05/10 1002 Note Time: 02/10/022016 Status: Signed Road Hogger Operator: Thomas Block MD (Physician) IMPRESSION: Q SUBJECTIVE: Chief complaint: Contraception. HISTORY OF PRESENT ILLNESS: The patient is a healthy 31-year- old, who has two children, and wants an IUD. She was given complete information about this including risks, benefits, etc., alternatives, and will reschedule with any of our providers who is open at the appropriate time in her cycle to have an IUD put in. Her periods are kind of heavy, so she would probably benefit from the use of a progesterone barring IUD, as opposed to a ParaGard. OBJECTIVE: N/A ASSESSMENT: N/A PLAN: N/A TT: Ten minutes. CT: Ten minutes. EWL:[id number] C: DOCUMENT: [id number] OR MILITARY ANALYST Faviola Amaro CCC-A - 01/10/2002 12:01 AM CDT Progress Notes signed by CHANTAL Suarez at 01/13/02 1541 Author: CHANTAL Suarez Service: (none) Author Type: CERTIFICATE OF CLINICAL COMPETENCY IN AUDIOLOGY Filed: 09/05/10 0919 Note Time: 01/10/022016 Status: Signed Road Hogger Operator: CHANTAL Suarez (Oil [employer]eller) IMPRESSION: Monaural sensorineural hearing loss reportedly related to surgery for Meniere's disease. SUBJECTIVE: Ms. Muir was seen for a hearing evaluation. She reports that she has been diagnosed with Meniere's disease and had surgery for the dizziness of her condition with Dr. Dhaliwal. She says she did lose 65% of her hearing in the left ear as a result of the surgery, but has gotten improvement as far as the dizziness. She says she has a hearing aid which helps in noisy situations, but she is not working outside the home at this point and tends not to wear the hearing aid when she is at home with her children. She says she started getting Meniere's episodes again about a month ago, which she thought might be stress related, and although she did get some effect on her hearing at that point, she is not aware of any change in her hearing since the episodes have stopped compared to previous to those episodes. She does have tinnitus and said she was aware of some on this date in the left ear. She is changing her care to this center because of a change in insurance and will be having her records from Dr. Dhaliwal's office sent to [facility]. OBJECTIVE: Visual examination of ear canals revealed no significant cerumen in the right ear, but quite a bit in the left ear. Pure tone measurements showed normal hearing for the right ear, but a sloping loss in the left ear, mild for the low frequencies, and severe to profound for the high frequencies. Speech front desk receptionist threshold of 80 dB in the left ear represents fair agreement with pure tone results, and speech recognition score of 28% for the left ear indicates that Ms. Muir gets substantial distortion in her left ear even when voices are comfortably loud. Bone conduction measurements indicated the loss is mainly sensorineural in nature. ASSESSMENT: Without previous records I cannot comment on any change in hearing. The patient is under the impression that the speech recognition score was poorer today than she has had in the past. I offered her otolaryngology consult, but she indicated she probably does not feel she needs to have an otolaryngology consult at this time. I would recommend periodic re-evaluation of her hearing in audiology. PLAN: Periodic re-evaluation of hearing in audiology. Otolaryngology consult if desired. TT: CT: [facility]REW:[id number] C: DOCUMENT: [id number] Derrick Baker MD - 01/06/2002 12:01 AM CDT Progress Notes signed by at 06/04/02 1832 Author: Derrick Baker MD Service: (none) Author Type: Physician Filed: 09/05/10 0915 Note Time: 01/06/02 0001 Status: Signed Road Hogger Operator: Derrick Baker MD (Physician) IMPRESSION: Health maintenance. Meniere's disease. Pelvic pain. control. SUBJECTIVE: A 31-year-old woman comes in for a physical. Complains of being overweight, wants to lose weight. Has started exercising, walking about one mile per day. Five years ago she says she was 130 pounds, now nearly 200. Feels that she eats well, but has no will to resist junk food. Recently upset with her for bringing some into the home. Some recent hot flashes. Is unsure what to make of these at this point. Continues to have regular periods. Is having some right-sided pelvic pain, it is the middle days of her period. They usually last three to five days. Has tried ibuprofen and that seems to help. PAST MEDICAL HISTORY: Cervical cancer. Status post laser treatment. Tonsillectomy. Meniere's. MEDICATIONS: Fluoxetine 50 mg p.o. q.d. ADR/ALLERGIES: SULFA AND AMOXICILLIN. SOCIAL HISTORY: Two young children, both of whom are with her today. Nonsmoker. Exercises, as above. No alcohol. FAMILY HISTORY: Mother with breast cancer at age 54. REVIEW OF SYSTEMS: No fevers, chills, no chest pains, no dyspnea, no amaurosis fugax. The remainder of the complete review of systems is negative. OBJECTIVE: VS: BP: 102/76. P: 68. Wt: 192 lb. No acute distress. Over nourished. HEENT: PERRL, EOMI, conjunctivae pink, normal lids. TMs pearly cruz, external canals with minimal cerumen. Good dentition, no ulcers on lips or gums. NECK: Trachea midline, no masses, or goiter. LUNGS: Clear, resonant to percussion, no tachypnea. CV: PMI nondisplaced, regular rate and rhythm, normal S1, S2, no murmurs, carotid upstrokes strong and equal. ABD: Abdomen nontender, no masses, no hepatosplenomegaly. SKIN: Skin warm and dry without rash. EXTREMITIES: Normal gait and station. No clubbing or cyanosis of digits. NEURO: Cranial nerves II-XII intact, vibratory sensation intact. Oriented times 3, bright affect. Normal vulva and urethra. Smooth, pink cervix. Uterus not enlarged. No adnexal fullness. ASSESSMENT: 1. Health maintenance. Tetanus current as of 1993. Release of records for ENT and gynecology. Check HDL and total cholesterol for screening and glucose, looking for diabetes, as she is slightly over nourished. 2. Meniere's disease. Schedule audiology appointment to evaluate hearing loss. Previously she had seen Dr. Briones at [facility]. I am not sure that is an option under her new insurance. 3. Pelvic pain. Schedule a pelvic ultrasound. Trial of naproxen 500 mg b.i.d. beginning three days before menstrual period and continuing through to see if this relieves her symptoms. Will try this for three months and report back to me. 4. control. She is interested in pursuing an IUD. Hormones resulted in for her. She is not interested in permanent sterilization, as may reconsider and want to have more children at some point in the future. PLAN: See assessment. TT: CT: [id number] C: DOCUMENT: [id number] Shun Wright MD - 08/23/2001 12:01 AM CDT Progress Notes signed by Shun Torrez MD at 08/23/01 1456 Author: Shun Torrez MD Service: (none) Author Type: (none) Filed: 09/05/10 0604 Note Time: 08/23/01 0001 Status: Signed Road Hogger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 Anatomical Region Laterality Modality Other Specimen (Source) Anatomical Location Collection Method / Collectio n Time Received Time / Laterality Volume Narrative 05/25/2001 10:32 AM SENIOR MILITARY ANALYST CLINICAL DATA: ?ANKLE PAIN ?719.47 FINDINGS: ?THE FILMS OF THE ANKLE DEMONSTRATE S AN OBLIQUE UNDISPLACED ?FRACTURE OF THE DISTAL FIBULA. ??T HE ADDITIONAL FILMS DO NOT ?DEMONSTRATE A FRACTURE, BUT FOLLOW UP FILMS OF THE FOOT ?COULD BE OBTAINED IF CLINICALLY JACINTO SPICIOUS FOR OTHERWISE ?OCCULT FRACTURE OF THE FOOT. ?[facility] TECH-ID : ? SDD TRANS-ID: ? EDR Procedure Note Fritz Funk E - 07/21/2016 CLINICAL DATA: ANKLE PAIN 719.47 FINDINGS: THE FILMS OF THE ANKLE DEMONSTRATES AN OBLIQUE UNDISPLACED FRACTURE OF THE DISTAL FIBULA. THE LINA TIONAL FILMS DO NOT DEMONSTRATE A FRACTURE, BUT FOLLOW UP F ILMS OF THE FOOT COULD BE OBTAINED IF CLINICALLY SUSPICI OUS FOR OTHERWISE OCCULT FRACTURE OF THE FOOT. [facility] TECH-ID : SDD TRANS-ID: EDR Nathan Avery MD RAD GD documented in this encounter Visit Diagnoses Not on filedocumented in this encounter Care Teams Shop Teacher Relationship Specialty Start Date End Date Dory Salgado MD PCP - General 08/19/10 [address] [facility] [address] [place] [address] documented as of this encounter
--- OUTSIDE RECORDS SUMMARY | 2022-04-03 11:30 | XMS_ITS | Encounter Summary ---
:1970 Author [facility] Address [address] [place] [address] Care Team Providers Name Role Phone Dory Salgado MD Primary Care Provider Encounter Details Date Type Department Care Team Description 11/08/2003 Office Visit [facility] Paddy Vigil MD Medicine [address] [place], [place] [phone] (Wo rk) Social History Tobacco Use Types Packs/Day Years Used Date Smoking Tobacco: Never Assessed Sex Assigned at Date Recorded Not on file documented as of this encounter Progress Notes Maureen Vigil MD - 11/08/2003 12:01 AM CDT Progress Notes signed by Maureen Vigil MD at 12/05/03 1353 Author: Maureen Vigil MD Service: (none) Author Type: Physician Filed: 09/05/10 2354 Note Time: 11/08/03 0001 Status: Signed Varnish Finisher: Maureen Vigil MD (Physician) NAME: CLIFF MUIR MR: [id number] ACCT: [id number] VISIT: [id number] DICTATING CLINICIAN: MAUREEN VIGIL MD JOB: [id number] CLINIC PROGRESS NOTE DATE OF VISIT: 11/08/2003 SUBJECTIVE: : 1970. A 33-year-old woman here with rash and throat tightness. Started this morning when she was in the shower. She notes a rash on her abdomen and gradually involving her extremities. She does not feel short of breath, but feels some tightness in her throat. Minimal facial swelling. She was going to do her usual activities, but the people in her [employer] group insisted that she come in to be checked out. She has had history of similar rash and throat tightness with both amoxicillin and sulfa based medications. No unusal food, or meds. No unusual activities. No unusual activities. She did help spray paint her 's race car. She felt the fumes were strong, but had no particular adverse reaction at that time. This was last night. Nothing else unusual. She states in the past she has required Benadryl shots for these reactions. PAST MEDICAL HISTORY: Reviewed. She has depression and history of Meniere's disease. FAMILY HISTORY: Breast cancer. OBJECTIVE: VS: BP: 108/70. P: 88. Wt. 198 lb. GENERAL: Patient in no acute distress. HEENT: Clear oropharynx. No angioedema noted. No significant facial swelling that I could detect. LUNGS: Clear to auscultation bilaterally. No wheezes or crackles. Good air movement. SKIN: There is maculopapular rash involving both upper and lower extremities, chest, abdomen, and back. ASSESSMENT: Allergic reaction, exact etiology unclear at this point. PLAN: Asked patient try to trace her activities for the past 2 days and see if she could identify an allergen. In the meantime she received a dose of Benadryl IM 25 mg and felt a lot better. Given a course of prednisone taper. She can also try Benadryl at home. She will arrange for someone to drive her home. If this recurs will consider allergy testing. JY:[id number] C: 11/10/03 10:50 DOCUMENT: [id number] documented in this encounter Plan of Treatment Not on filedocumented as of this encounter Visit Diagnoses Not on filedocumented in this encounter Care Teams Manager Social Media Relationship Specialty Start Date End Date Dory Salgado MD PCP - General 08/19/10 [address] [facility] [address]th [place] [address] documented as of this encounter
--- OUTSIDE RECORDS SUMMARY | 2022-04-03 11:30 | XMS_ITS | Encounter Summary ---
:1970 Author Organization [facility] Address [address] [place] [address] Care Team Providers Name Role Phone Unassigned, Provider Primary Care Provider Unavailable Encounter Details Date Type Department Care Team Description 01/15/2002 Hospital Encounter [facility] Derrick Baker MD [address] [place] [address] (Wo rk) Social History Tobacco Use Types Packs/Day Years Used Date Smoking Tobacco: Never Assessed Sex Assigned at Date Recorded Not on file documented as of this encounter Plan of Treatment Not on filedocumented as of this encounter Procedures Procedure Name Priority Date/Time Associated Diagnosis Comme nts US PELVIC (EV ONLY) Routine 01/15/2002 9:30 AM Re sults for this CDT procedure are i n the results section. US PELVIC COMPLETE Routine 01/15/2002 9:30 AM Res ults for this W EV CDT procedure are i n the results section. documented in this encounter Results US Pelvic Complete W EV (01/15/2002 9:30 AM CDT) Anatomical Region Laterality Modality Pelvis Other Specimen (Source) Anatomical Location Collection Method / Collectio n Time Received Time / Laterality Volume Impressions 01/15/2002 9:30 AM CDT : ??1. ?? Normal appearance of the uterus and right ovary. ??2. ?? Small, 1.4 x 1.3 x 1.3 cm hyper echoic area within the ? left ovary, part of which demo nstrates posterior acoustic ? shadowing. ??This could repres ent small ovarian dermoid or a ? hemorrhagic cyst with some adj acent calcifications. MT(183)/car C: 01/15/02 5:25:21 PM Narrative 01/15/2002 9:30 AM CDT No comparisons are available. The uterus is normal in appearance measu ring approximately 9 x 5.2 x 5.2 cm. The endometrial stripe i s normal measuring 3.5 mm. ??There is no free fluid in the cul-de-sac. ??The right ovary measures 2.9 x 3.5 x 2.0 cm with normal follicles seen within the right ovary. ? ?Normal blood flow is identified as well. ??The left ovary nely sures 3.8 x 1.6 x 2.3 cm. ??Normal follicles are seen within t he left ovary. Additionally, there is a 1.2 x 1.4 x 1.3 cm hyperechoic area within the ovary which demonstrates a fo son area of shadowing posteriorly. ??This is indeter minate and could represent focal calcification within a s mall ovarian dermoid. ??Portions of this hyperechoic area do appear to have some through transmission so this a lso could represent a hemorrhagic cyst with a focal area of calcification within it. Procedure Note Derrick Baker MD - 07/24/2016Forma tting of this note might be different from the original. No comparisons are available. The uterus is normal in appearance measu ring approximately 9 x 5.2 x 5.2 cm. The endometrial stripe i s normal measuring 3.5 mm. There is no free fluid in the cu l-de-sac. The right ovary measures 2.9 x 3.5 x 2.0 cm with normal follicles seen within the right ovary. N ormal blood flow is identified as well. The left ovary measu res 3.8 x 1.6 x 2.3 cm. Normal follicles are seen within the left ovary. Additionally, there is a 1.2 x 1.4 x 1.3 cm hyperechoic area within the ovary which demonstrates a fo son area of shadowing posteriorly. This is indetermi otf and could represent focal calcification within a s mall ovarian dermoid. Portions of this hyperechoic ar ea do appear to have some through transmission so this a lso could represent a hemorrhagic cyst with a focal area of calcification within it. IMPRESSION : 1. Normal appearance of the uterus and right ovary. 2. Small, 1.4 x 1.3 x 1.3 cm hyperechoi c area within the left ovary, part of which demonstrates posterior acoustic shadowing. This could represent small o varian dermoid or a hemorrhagic cyst with some adjacent son cifications. MOOKIE(183)/car C: 01/15/02 5:25:21 PM Derrick Baker MD RAD US US Pelvic (EV Only) (01/15/2002 9:30 AM CDT) Anatomical Region Laterality Modality Pelvis Other Specimen (Source) Anatomical Location Collection Method / Collectio n Time Received Time / Laterality Volume Impressions 01/15/2002 9:30 AM CDT : ??1. ?? Normal appearance of the uterus and right ovary. ??2. ?? Small, 1.4 x 1.3 x 1.3 cm hyper echoic area within the ? left ovary, part of which demo nstrates posterior acoustic ? shadowing. ??This could repres ent small ovarian dermoid or a ? hemorrhagic cyst with some adj acent calcifications. MT(183)/car C: 01/15/02 5:25:21 PM Narrative 01/15/2002 9:30 AM CDT No comparisons are available. The uterus is normal in appearance measu ring approximately 9 x 5.2 x 5.2 cm. The endometrial stripe i s normal measuring 3.5 mm. ??There is no free fluid in the cul-de-sac. ??The right ovary measures 2.9 x 3.5 x 2.0 cm with normal follicles seen within the right ovary. ? ?Normal blood flow is identified as well. ??The left ovary nely sures 3.8 x 1.6 x 2.3 cm. ??Normal follicles are seen within t he left ovary. Additionally, there is a 1.2 x 1.4 x 1.3 cm hyperechoic area within the ovary which demonstrates a fo son area of shadowing posteriorly. ??This is indeter minate and could represent focal calcification within a s mall ovarian dermoid. ??Portions of this hyperechoic area do appear to have some through transmission so this a lso could represent a hemorrhagic cyst with a focal area of calcification within it. Procedure Note Derrick Baker MD - 07/21/2016Forma tting of this note might be different from the original. No comparisons are available. The uterus is normal in appearance measu ring approximately 9 x 5.2 x 5.2 cm. The endometrial stripe i s normal measuring 3.5 mm. There is no free fluid in the cu l-de-sac. The right ovary measures 2.9 x 3.5 x 2.0 cm with normal follicles seen within the right ovary. N ormal blood flow is identified as well. The left ovary measu res 3.8 x 1.6 x 2.3 cm. Normal follicles are seen within the left ovary. Additionally, there is a 1.2 x 1.4 x 1.3 cm hyperechoic area within the ovary which demonstrates a fo son area of shadowing posteriorly. This is indetermi otf and could represent focal calcification within a s mall ovarian dermoid. Portions of this hyperechoic ar ea do appear to have some through transmission so this a lso could represent a hemorrhagic cyst with a focal area of calcification within it. IMPRESSION : 1. Normal appearance of the uterus and right ovary. 2. Small, 1.4 x 1.3 x 1.3 cm hyperechoi c area within the left ovary, part of which demonstrates posterior acoustic shadowing. This could represent small o varian dermoid or a hemorrhagic cyst with some adjacent son cifications. MT(183)/car C: 01/15/02 5:25:21 PM Derrick Baker MD [facility] documented in this encounter Visit Diagnoses Not on filedocumented in this encounter Care Teams Certified Medical Coding Specialist Relationship Specialty Start Date End Date Unassigned, Provider PCP - General 05/08/01 08/18/[address] [place] [id number] documented as of this encounter
--- OUTSIDE RECORDS SUMMARY | 2022-04-03 11:30 | XMS_ITS | Encounter Summary ---
:1970 Author Organization [facility] Address [address] [address] Care Team Providers Name Role Phone Dory Salgado MD Primary Care Provider Reason for Visit Reason Onset Date Comments Medication Questions 02/26/2017 Encounter Details Date Type Department Care Team Description 02/26/2017 Telephone [facility] [address] Adriana Retana M edication Questions Urology MALENA [address] [facility] [address] [place] [id number] [phone] Social History Tobacco Use Types Packs/Day Years Used Date Smoking Tobacco: Never Assessed Sex Assigned at Date Recorded Not on file documented as of this encounter Nursing Notes Snady Salazar LPN - 02/27/2017 1:08 PM CDT Rx faxed and confirmation received. Adriana Retana PA-C - 02/27/2017 12:31 PM CDT Urology Note: Avery Delgado, please see Flores's phone note about Myrbetriq. - Rx for Myrbetriq 25 mg, #90, 3 refills printed and signed. - Please fax as Flores outlined. Thanks! Rebeka Retana PA-C Department of Urologic Surgery Flores Messer LPN - 02/26/2017 3:24 PM CDT Joceline would like a Rx for the Myrbetriq 25 mg. A nurse from [facility] called and requested a written script that we can fax to them fax # is [phone]. If there are any questions the number for the nurse is [phone]. documented in this encounter Plan of Treatment Not on filedocumented as of this encounter Visit Diagnoses Diagnosis Urinary urgency - Primary Urgency of urination Urinary frequency documented in this encounter Care Teams Assembly Stock Supervisor Relationship Specialty Start Date End Date Dory Salgado MD PCP - General 08/19/10 [address] [facility] [address]th [place] [address] documented as of this encounter
--- OUTSIDE RECORDS SUMMARY | 2022-04-03 11:30 | XMS_ITS | Encounter Summary ---
:1970 Author Organization [facility] Address [address], [place] [address] Care Team Providers Name Role Phone Dory Salgado MD Primary Care Provider Reason for Visit Procedure/Equipment (Routine) - Incomplete Specialty Diagnoses / Procedures Referred By Contact Refer red To Contact Diagnoses Neurogenic bladder Adriana Retana PA-C Procedures US Renal W Bladder [address], [place] [address] Referral ID Status Reason Start Date Expiration Date Visits V isits Requested Authorized [id number] Incomplete 02/16/2017 05/18/2018 1 1 Encounter Details Date Type Department Care Team Description 03/05/2017 Imaging [facility] [address] Adriana Retana N eurogenic bladder Ultrasound PA-C [address] [place] [address] [place] [id number] [phone] Social History Tobacco Use Types Packs/Day Years Used Date Smoking Tobacco: Never Assessed Sex Assigned at Date Recorded Not on file documented as of this encounter Plan of Treatment Not on filedocumented as of this encounter Procedures Procedure Name Priority Date/Time Associated Diagnosis Comme nts US RENAL W BLADDER Routine 03/05/2017 12:50 PM Neurogenic blad al Results for this CDT procedure are i n the results section. documented in this encounter Results US Renal W Bladder (03/05/2017 12:50 PM CDT) Anatomical Region Laterality Modality Abdomen, Pelvis Ultrasound Specimen (Source) Anatomical Collection Method Collection Time Re ceived Time Location / / Volume Laterality 03/05/2017 12:13 PM CDT Impressions 03/05/2017 1:26 PM CDT IMPRESSION: 1. 5.1 cm anechoic lesion in the upper p ole of the left kidney is favored to represent a parapelvic cyst. Less likely this may represent an extra renal pelvis that is dilated. 2. 1.4 cm cyst in the right kidney. Narrative 03/05/2017 1:26 PM CDT COMPARISON: ??None. FINDINGS: ?? Right kidney: Measures 11.1 x 5.2 x 5.1 cm. ??1.4 x 1.3 x 1.2 cm anechoic lesion in the upper pole calculus consistent with a cyst. On some of the images this has low level internal echoes, most consistent with artifact. Left kidney: Measures ??13.1 x 5.1 x 5.0 cm. 5.1 x 4.0 x 4.0 cm anechoic lesion in the upper pole. Urinary bladder: No intraluminal abnorma lity. Procedure Note Tobias Claros MD - 03/05/2017Format ting of this note might be different from the original. COMPARISON: None. FINDINGS: Right kidney: Measures 11.1 x 5.2 x 5.1 cm. 1.4 x 1.3 x 1.2 cm anechoic lesion in the upper pole calculus consistent with a cyst. On some of the images this has low level internal echoes, most consistent with artifact. Left kidney: Measures 13.1 x 5.1 x 5.0 c m. 5.1 x 4.0 x 4.0 cm anechoic lesion in the upper pole. Urinary bladder: No intraluminal abnorma lity. IMPRESSION IMPRESSION: 1. 5.1 cm anechoic lesion in the upper p ole of the left kidney is favored to represent a parapelvic cyst. Less likely this may represent an extra renal pelvis that is dilated. 2. 1.4 cm cyst in the right kidney. Adriana SANTOYO US documented in this encounter Visit Diagnoses Diagnosis Neurogenic bladder Neurogenic bladder, NOS documented in this encounter Care Teams Wet Press Tender Relationship Specialty Start Date End Date Dory Salgado MD PCP - General 08/19/10 [address] [facility] 5th [place] [address] documented as of this encounter
--- OUTSIDE RECORDS SUMMARY | 2022-04-03 11:30 | XMS_ITS | Encounter Summary ---
:1970 [facility] [address], [place] [address] Care Team Providers Name Role Phone Dory Salgado MD Primary Care Provider Reason for Referral Procedure/Equipment (Routine) - Incomplete Specialty Diagnoses / Procedures Referred By Contact Refer red To Contact Diagnoses Neurogenic bladder Adriana Retana PA-C Procedures US Renal W Bladder [address] [place], [place] [address] Referral ID Status Reason Start Date Expiration Date Visits V isits Requested Authorized [id number] Incomplete 02/16/2017 05/18/2018 1 1 Reason for Visit Reason Comments CONSULT Encounter Details Date Type Department Care Team Description 02/16/2017 Office Visit [facility] [address] Adri[address] Retana Neur ogenic bladder (Primary Dx); Urology MALENA Rutledge Stenosis, cervical spine; [address] [place] [address] 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 Urinary urgency; [place], [place] Ur inary frequency; [id number] Urge incontinence [phone] Social History Tobacco Use Types Packs/Day Years Used Date Smoking Tobacco: Never Assessed Sex Assigned at Date Recorded Not on file documented as of this encounter Last Filed Vital Signs Vital Sign Reading Time Taken Comments Blood Pressure 100/70 02/16/2017 1:25 PM CDT Pulse 60 02/16/2017 1:25 PM CDT Temperature - - Respiratory Rate - - Oxygen Saturation - - Inhaled Oxygen Concentration - - Weight - - Height - - Body Mass Index - - documented in this encounter Progress Notes Adriana Retana PA-C - 02/16/2017 1:30 PM CDT CC: Neurogenic bladder (NGB). HPI: Ms. Joceline Uribe is a pleasant 46 y.o. female seen today in the urology clinic for neurogenicbladder dysfunction at the request of Dr. Josue. Per chart review and in discussion with the patient, the patient has a h/o chronic neck pain. The patient injured her neck in 05/2015 and eventually presented as an outpatient with c/o progressive numbness and weakness in both upper and lower extremities, R>L. The patient reported associated urinary and bowel urgency w/o incontinence. Imaging revealed a large right paracentral C5-6 calcified disc herniation with significant cord impingement. Joceline is now s/p C5-6 anterior cervical decompression fusion with partial corpectomy and placement of interbody corticocancellous allograft at C5-6 on 12/10/2016. Postoperatively the patient has had paraplegia and paresis, R>L, with associated sensory abnormalities. She was discharged to [facility] for rehab. The patient has a h/o irritative LUTs at baseline, but these acutely worsened postop. She reports frequency q30-120 minutes. Doing some anticipatory voiding. Nocturia q2 hr. Oxybutynin was tried but this caused urinary retention warranting CIC. CIC led to a symptomatic UTI so the oxybutynin was stopped. The patient states that it took about 2 weeks for her sensation of bladder filling and urgency to return after surgery. Kegels have been helpful in limiting accidents. Urgency can be marked, but often times the patient can hold off until getting to the toilet. No trouble with constipation; on fiber.Stools are typically soft and borderline mushy. The patient can stand with a walker and has made quite impressive functional gains in the last couple/few months. Ongoing right LE weakness and trouble with ankle rolling; using AFO and knee brace to improve stability. No caffeine, EtOH, significant spicy food intake, OJ/tomato juice or significant acidic food intake.Drinking ~60 oz of water most days. Limiting fluids does seem to help curb frequency. , . Possible forceps and perineal tearing with 9.1 lb baby. Kids are now 16 and 18. PMH: - Cervical spinal stenosis and spondylosis with myelopathy. - Acute tetraplegia. - Neurogenic bladder. - Urinary urgency. - Urinary frequency. - Urge urinary incontinence. - Vitamin D deficiency. - Orthostatic hypotension. - Meniere's disease. - Hypothyroidism. - Depression. PSH: - Tonsillectomy. - History of endolymphatic sac surgery. - LEEP. - Cervical spine decompression/fusion C5-6; 12/10/2016. Current Outpatient Prescriptions Medication Sig Dispense Refill ??? buPROPion (AKA WELLBUTRIN SR) 100 MG 12 hour release tablet Take 2 tablets by mouth every morning. 180 1 ??? DIPHENHYDRAMINE HCL (BENADRYL) 25MG ORAL CAPS 0 ??? FLUoxetine (AKA PROZAC) 20 MG capsule Take 3 capsules by mouth daily (every 24 hours). 270 1 ??? Multiple Vitamins-Minerals (MULTIVITAMIN OR) Take 1 tablet by mouth daily (every 24 hours). 100 13 ??? PREDNISONE 20MG ORAL TABS 0 ??? PREDNISONE 20MG ORAL TABS one tablet po bid x 4 days then one tablet qd x 4 days then 1/2 tabletqd x 4 days then 1/2 tablet qod x 4 days qs 0 ??? unknown medication Indications: PN: No current facility-administered medications for this visit. Allergies Allergen Reactions ??? Amoxicillin Hives ??? Sulfa Antibiotics Hives Family History: There is no reported family h/o malignancy. Social History: The patient does not smoke cigarettes and does not consume EtOH. 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 Accompanied by spouse to today's visit. ROS: A comprehensive 10 point ROS was obtained and was negative except for that outlined above in the HPI. PHYSICAL EXAM: Filed Vitals: 02/16/17 1325 BP: 100/70 Pulse: 60 GENERAL: Well groomed, well developed, well nourished female in NAD seated in WC RESP: No increased respiratory effort. LYMPH: No LE edema. ABD: Soft, NT, ND. No CVAT bilaterally. NEURO: Alert and oriented x 3. PSYCH: Normal mood and affect, pleasant and agreeable during interview and exam. PVR: Postvoid residual urine volume as measured by ultrasound was 89 mL. UA today: trace ketones, small leuks. ASSESSMENT/PLAN: Ms. Joceline Uribe is a pleasant 46 y.o. female with neurogenic bladder dysfunction s/t cervical spine disease and recent decompression/fusion surgery in late November 2016. The patient endorses a h/o baseline irritative LUTs preop, with acute worsening postop. Joceline tried oxybutynin for her urgency/freque ncy/UUI but this led to urinary retention, which in turn led to CIC and a symptomatic UTI. The oxybutynin was thus stopped. The patient reports normal stools and that dietary and behavioral modifications (limiting fluid intake, doing anticipatory voiding) have been helpful. Joceline, her spouse and I had a good discussion today about neurogenic bladder dysfunction and how themajority of patients experience a spastic bladder with urge related leakage. We also discussed the risk of sphincter dyssynergia and the need for baseline functional bladder studies. - Trial Myrbetriq (beta 3 agonist) given h/o retention with oxybutynin. One month of samples provided. - Recommend checking PVR daily x 2 weeks while on therapy; requested that results be faxed to [phone]. - Schedule baseline urodynamic assessment and renal bladder u/s in late May (or at least 6 months out from surgery). - Final copy sent to HIM to facilitate mailing a copy of my dictation to the patient, to Tennille Canela PA-C (PCP) and Dr. Dc with [facility]. I have enjoyed participating in the medical care of this very pleasant patient. Please don't hesitate to contact me with any questions or concerns. Sincerely, Rebeka Retana PA-C Department of Urologic Surgery documented in this encounter Plan of Treatment Scheduled Orders Name Type Priority Associated Diagnoses Order S chedule POCT URINALYSIS Point of Care Routine Neurogenic bladder Order ed: 02/16/2017 UROLOGY documented as of this encounter Procedures Procedure Name Priority Date/Time Associated Comments Diagnosis AUTOMATED URINALYSIS Routine 02/16/2017 1:30 PM R esults for this DIPSTICK POCT CDT procedure are in the results section. [...] cm cyst in the right kidney. Adriana E Lainey PA-C RAD US (ABNORMAL) Urinalysis Dipstick (02/16/2017 1:30 PM CDT) [facility] gist Method Time Signature Urine Glucose Negative mg/dL PN SOFT (POC) Urine Bilirubin Negative PN SOFT (POC) Urine Ketone Trace (A) mg/dL PN SOFT (POC) Urine Specific 1.020 PN SOFT Frederic (POC) Urine Occult Negative PN SOFT Blood (POC) Urine PH (POC) 5.5 PN SOFT Urine Protein Negative mg/dL PN SOFT (POC) Urine Negative mg/dL PN SOFT Urobilinogen (POC) Urine Nitrite Negative PN SOFT (POC) Urine Leukocytes Small (A) PN SOFT (POC) Urine Color Yellow PN SOFT (POC) Urine Appearance Clear PN SOFT (POC) Comment: Performed at [address] [place] [address].[place] [address] Strip Lot Number (POC) [id number] PN SOFT Specimen Anatomical Collection Method Collection Time Receive d Time (Source) Location / / Volume Laterality 02/16/2017 1:30 PM 7 1:35 CDT PM CDT Adriana Retana PA-C LAB_1 Performing Organization Address City/State/ZIP Code Phon e Number PN SOFT [address] [place], [place] [id number] documented in this encounter Visit Diagnoses Diagnosis Neurogenic bladder - Primary Neurogenic bladder, NOS Stenosis, cervical spine Spinal stenosis in cervical region Osteoarthritis of cervical spine with my elopathy (HRC) Urinary urgency Urgency of urination Urinary frequency Urge incontinence Neurogenic bladder Neurogenic bladder, NOS documented in this encounter Care Teams Inclusion Intern Relationship Specialty Start Date End Date Dory Salgado MD PCP - General 08/19/10 [address] [facility] 5th Floor [place], [place] [id number] documented as of this encounter
--- OUTSIDE RECORDS SUMMARY | 2022-04-03 11:30 | XMS_ITS | Clinical Summary ---
:1970 Author Organization [employer] [facility] [place] [address] Care Team Providers Name Role Phone Freddie Chao MD Primary Care Provider [phone] Sandy Martins MD Unavailable [phone] Allergies Active Allergy Reactions Severity Noted Date Comments Adhesive Tape-Silicones Rash Medium 12/19/2016 From EKG patches, Dermatitis/Rash Amoxicillin Shortness Of Breath 01/17/2010 Ciprofloxacin Shortness Of Breath, 01/07/2017 Rash Sulfa (Sulfonamide Shortness Of Breath, 01/17/2010 Antibiotics) Rash Vancomycin Rash, Bradycardia High 12/19/2016 Suspected drug rash to vancomycin, not certain Medications Medication Sig Dispensed Refills Start Date End Date Status levothyroxine Take 1 Tablet (75 90 tablet. 3 03/19/2021 Active (SYNTHROID) 75 mcg mcg) by mouth tabletIndications: once daily. Hypothyroidism (acquired) cetirizine (ZYRTEC) 10 0 05/22/2021 Active mg tablet famotidine (Pepcid) 20 Take 1 Tablet (20 60 Tablet 3 2 Active mg tabletIndications: mg) by mouth 2 Primary cancer of left times daily if breast (HC) needed for Heartburn. triamcinolone Apply topically 15 g 1 09/06/2021 Active (ARISTOCORT; KENALOG) to affected 0.1 % area(s) 3 times creamIndications: daily. Primary cancer of left breast (HC), Rash baclofen (LIORESAL) 10 Take 1-2 Tablets 60 Tablet 1 09/20/2021 Active mg tabletIndications: (10-20 mg) by Spasm mouth once daily if needed (Muscle spasms). tamoxifen (NOLVADEX) Take 1 Tablet (20 90 Tablet 3 10/11/2021 Active 20 mg mg) by mouth once tabletIndications: daily. 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 coli UTI 12/26/2016 04/05/2021 Acute tetraplegia 12/10/2016 01/23/2021 Vitamin D deficiency 09/22/2011 04/05/2021 Overview: Formatting of this note is dif ferent from the original. VITAMIN D TOTAL (ng/mL) Date Value 08/11/2011 21.6* 08/05/2010 20.3* 10/22/2009 28.0* Ergocalciferol 50,000 IU 3x/wk for 4 wks started 09/22/2011 Instructed to then switch to D3 4,000 IU /day Re-check Vit D Level in ~3-6 months Encounters Date Type Specialty Care Team Description 03/17/2022 Refill Freddie Chao MD Ref ill Request (baclofen (LIORESAL) 10 m g tablet) 03/07/2022 Refill Kalina Washington, SEATER ASSEMBLER Refill Re quest (Baclofen) 02/03/2022 Travel 02/03/2022 Nurse Triage Freddie Chao MD Landon n On Urination 01/02/2022 Telephone Guy Mackenzie, Social Work Contact ([facility] social problems specialist) from Last 3 Months Immunizations Name Administration Dates Next Due COVID-19 vaccine (Red's All natural-BioNTFewzion 30mcg/0.3mL) PF, , 09/07/2020 MDV Influenza RIV4 (Age 18+ Years) PRESERV FREE 04/06/2020 Influenza, IIV3 (Age >=3 years) 01/24/2009, 04/05/2007 Td (Age >=7 Years) 06/11/2004, 02/14/1994 Tdap 12/02/2016 Zoster (Shingrix-RZV, recombinant) 05/07/2021, 03/07/2021 Family History Medical History Relation Name Comments Cancer Father lung, bladder, l ymph Cancer-breast Maternal Grandmother Hypertension Maternal Grandmother Cancer Mother liver Cancer-breast Mother mastectomy Hypertension Mother Other Paternal Grandmother glaucoma Stroke Paternal Grandmother Cancer Sister Cancer-breast Sister Relation Name Status Comments Father (Age 60) Maternal Grandmother Mother Paternal Grandmother cataract Sister Social History Tobacco Use Types Packs/Day Years Used Date Never Smoker Smokeless Tobacco: Never Used Tobacco Cessation: Counseling Given: Yes Alcohol Use Standard Drinks/Week Comments No 0 (1 standard drink = 0.6 oz pure alcoho l) Sex Assigned at Date Recorded Female 01/18/2021 8:55 PM CDT Obstetrics History Para Term AB IAB SAB Ectopic Multiple Living Live Births 2 2 Date Outcome GA Total Labor/2nd/3rd Weight Sex Delivery Anes PTL Sofia A 1 A5 Name Clin Labor Last Filed Vital Signs Vital Sign Reading Time Taken Comments Blood Pressure 112/66 10/11/2021 9:50 AM CDT Pulse 83 10/11/2021 9:50 AM CDT Temperature 36.4 ??C (97.5 ??F) 10/11/2021 9:50 AM CDT Respiratory Rate 20 11/01/2021 1:48 PM CDT Oxygen Saturation 98% 09/27/2021 10:00 AM CDT Inhaled Oxygen Concentration - - Weight 87.5 kg (193 lb) 11/01/2021 1:48 PM CDT Height 165.1 cm (5' 5) 11/01/2021 1:48 PM CDT Body Mass Index 32.12 11/01/2021 1:48 PM CDT Plan of Treatment Health Maintenance Due Date Last Done Comments HIV for age 15-65 1984 Hepatitis C screening for age 1204/26/1987 18-79 Colonoscopy through age 75 2014 COVID-19 vaccine series (4 - 07/09/2021 05/14/2021, 021, Booster) 09/07/2020 Influenza for age 50-64 01/16/2022 04/06/2020, 01/24/2009, 04/05/2007 Depression screening for age 12+ 01/24/2022 01/24/2021, 11/2020, 10/01/2017 Mammogram for age 45-75 03/15/2022 03/15/2021, 10/28/2013, 10/28/2013, Additional history exists BMI (ht and wt on same day) for 11/01/2022 11/01/2021, 09/16, age 18+ 09/27/2021, Additional history exists Lipids for age 45-75 01/22/2026 01/22/2021, 08/11/2011, 08/05/2010 Tetanus booster 12/02/2026 12/02/2016, 06/11/2004, 06/11/2004 (Completed outside of [facility]), Additional history exists Tdap Completed 12/02/2016 Zoster (shingles) series for age Completed 05/07/2021, 50+ Medical Devices Implanted Type Area Crtts Device Shelf Model / Identifier Expiration Serial / Date Lot [id number] 1cc [place] Plus Paste Dbm N/A: Spine Medtronic 07/02/2018 [id number] / Implanted: Qty: 1 on 12/10/2016 by Lorenzo Simmons MD at [facility] Spine/Ortho A3 [id number] / Explanted: at [facility] (Quantity not on file) Port W/8fr 1 [employer] Powerport - [id number] Right: Bard Per ipheral 10/15/2022 [id number] / Implanted: Qty: 1 on 05/21/2021 by Christen washington, Katherine Grider MD at [facility] [employer] / Vein [id number] Results Not on filefrom Last 3 Months Insurance Payer Benefit Plan / Subscriber ID Effective Dates Phone Addre ss Type Group [employer] [place] [id number] 2017-Present [address] ADVANTAGE ROBERTA HOOKER [phone] Advance Directives Latest Code Status on File Code Status Date Activated Date Inactivated Comments Full Code 05/21/2021 6:09 AM 05/21/2021 12:12 PM Code Status Discussion: Unable to Assess Preferences, Provid er to review later Full Code 04/25/2021 9:15 AM 04/25/2021 6:18 PM Code Status Discussion: Unable to Assess Preferences, Provid er to review later Full Code 12/19/2016 1:21 PM 01/22/2017 1:22 PM Full Code 12/10/2016 9:51 PM 12/19/2016 1:20 PM Full Code 12/10/2016 9:57 AM 12/10/2016 9:13 PM Code Status Discussion: Not Discussed Care Teams Police Lieutenant Relationship Specialty Start Date End Date Freddie Chao MD PCP - General Family Practice 03/11/21 [address] [place] [address] Sandy Martins MD Medical Oncologist Oncology 03/29/21 [address] [place], [place] [address]
--- OUTSIDE RECORDS SUMMARY | 2022-04-03 11:30 | XMS_ITS | Encounter Summary ---
:1970 Author Organization [employer] Address [address], [place] [address] Care Team Providers Name Role Phone Dory Salgado MD Primary Care Provider Encounter Details Date Type Department Care Team Description 04/25/2004 PN Conversion Only [facility] [address] [place] [address] Social History Tobacco Use Types Packs/Day Years Used Date Smoking Tobacco: Never Assessed Sex Assigned at Date Recorded Not on file documented as of this encounter Plan of Treatment Not on filedocumented as of this encounter Procedures Procedure Name Priority Date/Time Associated Diagnosis Comme nts MM US BX BREAST Routine 04/25/2004 2:56 PM Result s for this BILAT ASSOCIATE DIRECT[employer] procedure are i n the results section. MM US BREAST UNILAT Routine 04/25/2004 2:56 PM Re sults for this ([facility]) ASSOCIATE [employer] procedure are i n the results section. documented in this encounter Results MM US Bx Breast Bilat (04/25/2004 2:56 PM ASSOCIATE DIRECT[employer]) Anatomical Region Laterality Modality Breast Bilateral Ultrasound Specimen (Source) Anatomical Location Collection Method / Collectio n Time Received Time / Laterality Volume Impressions 2004 2:39 PM ASSOCIATE [employer] Successful ultrasound guided core biopsy of mass in the upper inner quadrant at 1 o'clock posteriorly. PATHOLOGY: ??Breast, right, 1:00, ultras ound guided needle biopsies: 1. Fibroadenoma. ??2. No evidence of aty pical hyperplasia or malignancy in surrounding breast tissue. ...Gianni Medley M.D. RECOMMENDATION:Return to yearly screenin g mammography in this patient with a strong family history of breast c ancer. ??Consider adding Bilateral Breasr MRI every 1 -2 years to the screening protocol. END OF IMPRESSION Dictating WILLAM MENDOZA Physician Narrative 2004 2:39 PM ASSOCIATE [employer] The procedure was explained to the patient including benefits and alternatives. The risks, including but n ot limited to infection and bleeding, were reviewed and the patient agreed to undergo the procedure, signing the consent form. Right ultrasound guided core biopsy: The patient's right breast was positione d in the Ultrasound Suite and images of the smooth mass in the upper i nner quadrant at 1 o'clock, zone 3, ??posteriorly were obtained. Thi s is judged to correspond to the MRI enhancing lesion and probably is a benign fibroadenoma but in light of the very strong family history, deserves further evaluation with core biopsy. The breast was prepped for the procedure , the area was anesthetized with a local anesthetic and a small inci priscila was made in the breast. Using a Bard (14g) and a medial approach , five passes were made through the area and five specimens were obtained. Additional images confirmed that the lesion was traversed by the needle on all passes. The patient experienced no complications during the procedure. Procedure Note Willam Fields MD - 07/21/2016Form atting of this note might be different from the original. The procedure was explained to the patie nt including benefits and alternatives. The risks, including but n ot limited to infection and bleeding, were reviewed and the patient agreed to undergo the procedure, signing the consent form. Right ultrasound guided core biopsy: The patient's right breast was positione d in the Ultrasound Suite and images of the smooth mass in the upper i nner quadrant at 1 o'clock, zone 3, posteriorly were obtained. This is judged to correspond to the MRI enhancing lesion and probably is a benign fibroadenoma but in light of the very strong family history, deserves further evaluation with core biopsy. The breast was prepped for the procedure , the area was anesthetized with a local anesthetic and a small inci priscila was made in the breast. Using a Bard (14g) and a medial approach , five passes were made through the area and five specimens were obtained. Additional images confirmed that the lesion was traversed by the needle on all passes. The patient experienced no complications during the procedure. IMPRESSION Successful ultrasound guided core biopsy of mass in the upper inner quadrant at 1 o'clock posteriorly. PATHOLOGY: Breast, right, 1:00, ultrasou nd guided needle biopsies: 1. Fibroadenoma. 2. No evidence of atypi son hyperplasia or malignancy in surrounding breast tissue. ...Gianni Medley M.D. RECOMMENDATION:Return to yearly screenin g mammography in this patient with a strong family history of breast c ancer. Consider adding Bilateral Breasr MRI every 1 -2 years to the screening protocol. END OF IMPRESSION Dictating WILLAM MENDOZA Physician Dory Salgado MD RAD [facility] MM US Breast Unilat ([facility]) (04/25/2004 2:56 PM ASSOCIATE DIRECT[employer]) Anatomical Region Laterality Modality Breast Ultrasound Specimen (Source) Anatomical Location Collection Method / Collectio n Time Received Time / Laterality Volume Impressions 04/25/2004 2:56 PM ASSOCIATE [employer] Successful ultrasound guided core biopsy of mass in the upper inner quadrant at 1 o'clock posteriorly. PATHOLOGY: ??Breast, right, 1:00, ultras ound guided needle biopsies: 1. Fibroadenoma. ??2. No evidence of aty pical hyperplasia or malignancy in surrounding breast tissue. ...Gianni Medley M.D. RECOMMENDATION:Return to yearly screenin g mammography in this patient with a strong family history of breast c ancer. ??Consider adding Bilateral Breasr MRI every 1 -2 years to the screening protocol. END OF IMPRESSION Dictating WILLAM MENDOZA Physician Narrative 04/25/2004 2:56 PM ASSOCIATE DIRECT[employer] The procedure was explained to the patient including benefits and alternatives. The risks, including but n ot limited to infection and bleeding, were reviewed and the patient agreed to undergo the procedure, signing the consent form. Right ultrasound guided core biopsy: The patient's right breast was positione d in the Ultrasound Suite and images of the smooth mass in the upper i nner quadrant at 1 o'clock, zone 3, ??posteriorly were obtained. Thi s is judged to correspond to the MRI enhancing lesion and probably is a benign fibroadenoma but in light of the very strong family history, deserves further evaluation with core biopsy. The breast was prepped for the procedure , the area was anesthetized with a local anesthetic and a small inci priscila was made in the breast. Using a Bard (14g) and a medial approach , five passes were made through the area and five specimens were obtained. Additional images confirmed that the lesion was traversed by the needle on all passes. The patient experienced no complications during the procedure. Procedure Note Willam Fields MD - 07/21/2016Form atting of this note might be different from the original. The procedure was explained to the patie nt including benefits and alternatives. The risks, including but n ot limited to infection and bleeding, were reviewed and the patient agreed to undergo the procedure, signing the consent form. Right ultrasound guided core biopsy: The patient's right breast was positione d in the Ultrasound Suite and images of the smooth mass in the upper i nner quadrant at 1 o'clock, zone 3, posteriorly were obtained. This is judged to correspond to the MRI enhancing lesion and probably is a benign fibroadenoma but in light of the very strong family history, deserves further evaluation with core biopsy. The breast was prepped for the procedure , the area was anesthetized with a local anesthetic and a small inci priscila was made in the breast. Using a Bard (14g) and a medial approach , five passes were made through the area and five specimens were obtained. Additional images confirmed that the lesion was traversed by the needle on all passes. The patient experienced no complications during the procedure. IMPRESSION Successful ultrasound guided core biopsy of mass in the upper inner quadrant at 1 o'clock posteriorly. PATHOLOGY: Breast, right, 1:00, ultrasou nd guided needle biopsies: 1. Fibroadenoma. 2. No evidence of atypi son hyperplasia or malignancy in surrounding breast tissue. ...Gianni Medley M.D. RECOMMENDATION:Return to yearly screenin g mammography in this patient with a strong family history of breast c ancer. Consider adding Bilateral Breasr MRI every 1 -2 years to the screening protocol. END OF IMPRESSION Dictating WILLAM MENDOZA Physician Dory Salgado MD RAD [facility] documented in this encounter Visit Diagnoses Not on filedocumented in this encounter Care Teams Seo Consultant Relationship Specialty Start Date End Date Dory Salgado MD PCP - General 08/19/10 [address] [facility] [address] [place] [address] documented as of this encounter
[2022-04-03 11:46] LABS: Lactate* 1.2 mmol/L (0.5-1.9)
[2022-04-03 11:51] LABS: Basophils Percent Auto 0.7 % (0.0-3.0); Hematocrit 34.7 % (33.0-51.0); Hemoglobin* 11.4 gm/dL (12.0-16.0); Immature Granulocytes Pct Auto 0.2 %; Mean Corpuscular HGB Conc 33 gm/dL (32-36); Mean Corpuscular Hemoglobin 31 pg (26-34); Mean Corpuscular Volume 94 fL (80-100); Monocytes Percent Auto 10.4 % (0.0-11.0); Neutrophils Percent Auto 64.7 % (42.0-72.0); Platelet Count* 215 K/uL (140-440); Red Blood Count 3.68 m/uL (4.00-5.20); White Blood Count* 4.04 K/uL (4.50-11.00)
[2022-04-03 11:52] LABS: Slide Review Reflex No
[2022-04-03 12:12] LABS: D Dimer Quantitative* 0.95 ug/ml (0.00-0.50)
[2022-04-03 12:21] LABS: NT Pro B Type NatriureticPept* 136 PG/mL (0-125)
[2022-04-03 12:29] LABS: Albumin* 3.7 g/dL (3.3-5.0); Chloride* 111 mmol/L (96-114); PCR FLU A Negative PCR FLU A (Negative); PCR FLU B Negative PCR FLU B (Negative); PCR RSV Negative PCR RSV (Negative); SARS PCR* Negative SARS-CoV-2 (Negative)
[2022-04-03 12:30] LABS: Sodium* 139 mmol/L (135-149)
[2022-04-03 12:32] LABS: Bilirubin Total* 0.3 mg/dL (0.1-1.5); Creatinine* 0.8 mg/dL (0.5-1.5); Est. Creatinine Clearance* 74.02; Estimated Glomerular Filt Rate 89 ml/min
[2022-04-03 12:33] LABS: Alanine Aminotransferase* 15 U/L (4-35); Alkaline Phosphatase* 50 U/L (40-150); Aspartate Amino Transferase* 20 U/L (12-35); Blood Urea Nitrogen* 13 mg/dL (7-30); Calcium* 8.8 mg/dL (8.4-10.6); Carbon Dioxide* 23 mmol/L (20-32); Glucose* 90 mg/dL (60-115); Total Protein* 6.5 g/dL (6.0-8.3)
[2022-04-03 12:39] LABS: C Reactive Protein* < 0.5 mg/dL (0.5-1.0)
[2022-04-03 12:44] LABS: Troponin I* 0.01 ng/mL (0.01-0.04)
== END 2022-04-03 14:09 | disposition home or self-care (01) ==
PROVIDERS: Emergency Provider Family Medicine; PCP Family Medicine
DX: J70.0 Acute pulmonary manifestations due to radiation (principal); L29.9 Pruritus, unspecified
CPT/HCPCS: 36415; 71260; 80053; 83605; 83880; 84484; 85025; 85379; 86140; 87502; 87634; 87635; 93005; 93971; 94761; 99284; 99285; Q9967

== ENCOUNTER 2022-08-06 14:00 | Outpatient (RCR) | payer BC, SELFPAY | END 2022-12-04 23:59 | disposition home or self-care (01) | PROVIDERS: PCP Family Medicine; Visit Provider Physician Assistant | DX: I89.8 Other specified noninfective disorders of lymphatic vessels and lymph nodes (principal); Z51.89 Encounter for other specified aftercare | CPT/HCPCS: 97035; 97110; 97140; 97165; X5282 ==

== ENCOUNTER 2022-08-07 08:15 | Outpatient (RCR) | payer BC, SELFPAY ==
[2022-02-20 15:52] LABS: Basophils Absolute Auto 0.03 K/uL (0.00-0.30); Basophils Percent Auto 0.5 % (0.0-3.0); Eosinophils Absolute Auto 0.09 K/uL (0.00-0.50); Eosinophils Percent Auto 1.6 % (0.0-7.0); Hematocrit 38.7 % (33.0-51.0); Immature Granulocytes Abs Auto 0.02 K/uL (0.00-0.30); Lymphocytes Absolute Auto 1.22 K/uL (0.90-2.90); Mean Corpuscular HGB Conc 34 gm/dL (32-36); Mean Corpuscular Hemoglobin 30 pg (26-34); Mean Corpuscular Volume 90 fL (80-100); Monocytes Percent Auto 15.3 % (0.0-11.0); Neutrophils Absolute Auto 3.55 K/uL (1.7-7.0); Neutrophils Percent Auto 61.3 % (42.0-72.0); Platelet Count* 247 K/uL (140-440); RDW Coefficient of Variation % 14.3 % (11.5-15.5)
[2022-02-20 16:00] LABS: Slide Review Reflex No
[2022-02-20 16:07] LABS: Albumin* 4.1 g/dL (3.3-5.0); Chloride* 105 mmol/L (96-114)
[2022-02-20 16:08] LABS: Potassium* 4.3 mmol/L (3.6-5.1); Sodium* 137 mmol/L (135-149)
[2022-02-20 16:10] LABS: Bilirubin Total* 0.2 mg/dL (0.1-1.5); Carbon Dioxide* 26 mmol/L (20-32); Creatinine* 0.7 mg/dL (0.5-1.5); Estimated Glomerular Filt Rate 104 ml/min
[2022-02-20 16:11] LABS: Alanine Aminotransferase* 12 U/L (4-35); Alkaline Phosphatase* 58 U/L (40-150); Aspartate Amino Transferase* 19 U/L (12-35); Blood Urea Nitrogen* 14 mg/dL (7-30); Calcium* 8.8 mg/dL (8.4-10.6); Glucose* 101 mg/dL (60-115); Total Protein* 7.2 g/dL (6.0-8.3)
--- NOTE | 2022-03-06 15:45 | ONC.NURNOTE ---
Breast Lamination Spinner Note Received call from pt saying she had an episode of diarrhea last Thursday, took 2 immodium immediately and it resolved. Then today just now she had 1 episode diarrhea again and took 2 Immodium; she is waiting to see how her body responds and wanted us to know. She also notes that she is having a sour stomach with these episodes of diarrhea, and this is consistent with her baseline of having diarrhea with a sour stomach ~1x/mo. She is taking Pepcid 2x/day prior to Verzenio; encouraged pt to try Tums for breakthrough stomach acidity and said if that is not managing well, we may consider trying a PPI. Also recommended if pt has additional loose stools after initial loose stool/2 Immodium, she may take additional 1 immodium after subsequent loose stools up to 8 tabs/day. She is comfortable with this plan and will notify us if the diarrhea continues/worsens. Pt also notes in the last week she is up in the night urinating ~q1hr which is interrupting her sleep tremendously; her baseline is up to urinate at night ~q2hr. She denies pain with urination/cloudiness of urine; she recently had a UTI and it has fully resolved; she is familiar with her body's cues for UTI and is not feeling them. Reviewed pt's hydration schedule; she has slightly more hydration in the evenings with addition of Pepcid AC and Verzenio. She will consider moving her HS Tamoxifen earlier in the day and overall attempt to increase hydration earlier in the day and lessen in the evening. She will notify us early next week if it continues.
[2022-03-27 14:34] LABS: Basophils Percent Auto 0.8 % (0.0-3.0); Eosinophils Percent Auto 1.3 % (0.0-7.0); Hematocrit 35.2 % (33.0-51.0); Hemoglobin* 11.7 gm/dL (12.0-16.0); Mean Corpuscular HGB Conc 33 gm/dL (32-36); Mean Corpuscular Hemoglobin 31 pg (26-34); Mean Corpuscular Volume 93 fL (80-100); Monocytes Percent Auto 7.7 % (0.0-11.0); Neutrophils Percent Auto 65.2 % (42.0-72.0); Platelet Count* 243 K/uL (140-440); RDW Coefficient of Variation % 14.6 % (11.5-15.5); Red Blood Count 3.78 m/uL (4.00-5.20); White Blood Count* 3.88 K/uL (4.50-11.00)
[2022-03-27 15:13] LABS: Albumin* 3.9 g/dL (3.3-5.0)
[2022-03-27 15:14] LABS: Chloride* 107 mmol/L (96-114); Potassium* 3.8 mmol/L (3.6-5.1); Sodium* 138 mmol/L (135-149)
[2022-03-27 15:16] LABS: Aspartate Amino Transferase* 21 U/L (12-35); Bilirubin Total* 0.2 mg/dL (0.1-1.5); Carbon Dioxide* 23 mmol/L (20-32); Creatinine* 0.9 mg/dL (0.5-1.5); Estimated Glomerular Filt Rate 77 ml/min; Total Protein* 6.8 g/dL (6.0-8.3)
[2022-03-27 15:17] LABS: Alanine Aminotransferase* 15 U/L (4-35); Alkaline Phosphatase* 62 U/L (40-150); Blood Urea Nitrogen* 13 mg/dL (7-30); Calcium* 9.1 mg/dL (8.4-10.6); Glucose* 102 mg/dL (60-115)
[2022-03-27 15:19] LABS: Slide Review Reflex No
[2022-03-27 15:41] LABS: Appearance Urine Clear (Clear); Bilirubin Urine Negative (Negative); Blood Urine Negative (Negative); Color Urine Yellow (Yellow); Glucose Urine Negative (Negative); Ketones Urine Negative (Negative); Leukocyte Esterase Urine Negative (Negative); Nitrite Urine Negative (Negative); Protein Urine Negative (Negative); Specific Gravity Urine 1.025 (1.000-1.030); Urobilinogen Urine 0.2 (0.2-1.0)
--- NOTE | 2022-04-02 15:21 | ONC.NURNOTE ---
Called stating the last couple of days is vaginally itching. states feels like a yeast infection. enc her to call her primary. she states going to Urgent care today. Enc. her to call if any further questions or not able to see a md. states no new meds
--- NOTE | 2022-04-02 15:28 | ONC.NURNOTE ---
Patient called pre auth is not back yet.
--- NOTE | 2022-04-09 09:46 | PC.NURSE ---
Patient called to see if she needed to do labs on Thursday the prior to her tooth implant surgery. Discussed with Brittany Rubalcava. Since her labs were good on the and she is off the Verzenio, patient informed that labs prior to the implant surgery were not necessary unless the oral surgeon felt that he needed them. Appointment for 04/14 cancelled. Patient informed that a referral to dermatology was placed and she will be contacted with appointment information. Patient verbalizes understanding of plan.
[2022-04-21 07:52] LABS: Basophils Absolute Auto 0.07 K/uL (0.00-0.30); Basophils Percent Auto 0.7 % (0.0-3.0); Eosinophils Absolute Auto 0.14 K/uL (0.00-0.50); Eosinophils Percent Auto 1.3 % (0.0-7.0); Hematocrit 37.9 % (33.0-51.0); Hemoglobin* 12.3 gm/dL (12.0-16.0); Immature Granulocytes Abs Auto 0.12 K/uL (0.00-0.30); Immature Granulocytes Pct Auto 1.1 %; Lymphocytes Percent Auto 10.1 % (20-44); Mean Corpuscular HGB Conc 33 gm/dL (32-36); Mean Corpuscular Hemoglobin 31 pg (26-34); Mean Corpuscular Volume 97 fL (80-100); Monocytes Percent Auto 8.1 % (0.0-11.0); Neutrophils Percent Auto 78.7 % (42.0-72.0); Platelet Count* 238 K/uL (140-440); RDW Coefficient of Variation % 16.5 % (11.5-15.5); Red Blood Count 3.92 m/uL (4.00-5.20); Slide Review Reflex No; White Blood Count* 10.68 K/uL (4.50-11.00)
[2022-04-21 08:13] LABS: Chloride* 107 mmol/L (96-114); Sodium* 141 mmol/L (135-149)
[2022-04-21 08:14] LABS: Albumin* 3.7 g/dL (3.3-5.0); Potassium* 4.5 mmol/L (3.6-5.1)
[2022-04-21 08:16] LABS: Carbon Dioxide* 31 mmol/L (20-32)
[2022-04-21 08:17] LABS: Alanine Aminotransferase* 16 U/L (4-35); Alkaline Phosphatase* 50 U/L (40-150); Aspartate Amino Transferase* 19 U/L (12-35); Bilirubin Total* 0.4 mg/dL (0.1-1.5); Blood Urea Nitrogen* 17 mg/dL (7-30); Calcium* 8.9 mg/dL (8.4-10.6); Creatinine* 0.8 mg/dL (0.5-1.5); Estimated Glomerular Filt Rate 89 ml/min; Glucose* 89 mg/dL (60-115); Total Protein* 6.3 g/dL (6.0-8.3)
[2022-05-22 09:39] LABS: Basophils Absolute Auto 0.03 K/uL (0.00-0.30); Basophils Percent Auto 0.4 % (0.0-3.0); Eosinophils Percent Auto 1.4 % (0.0-7.0); Hematocrit 38.3 % (33.0-51.0); Hemoglobin* 12.7 gm/dL (12.0-16.0); Immature Granulocytes Abs Auto 0.02 K/uL (0.00-0.30); Immature Granulocytes Pct Auto 0.3 %; Lymphocytes Percent Auto 15.1 % (20-44); Mean Corpuscular HGB Conc 33 gm/dL (32-36); Mean Corpuscular Hemoglobin 31 pg (26-34); Mean Corpuscular Volume 94 fL (80-100); Neutrophils Absolute Auto 5.08 K/uL (1.7-7.0); Neutrophils Percent Auto 71.8 % (42.0-72.0); Platelet Count* 286 K/uL (140-440); RDW Coefficient of Variation % 13.6 % (11.5-15.5); Red Blood Count 4.06 m/uL (4.00-5.20); White Blood Count* 7.08 K/uL (4.50-11.00)
[2022-05-22 09:44] LABS: Slide Review Reflex No
[2022-05-22 09:53] LABS: Albumin* 3.9 g/dL (3.3-5.0); Chloride* 108 mmol/L (96-114); Sodium* 140 mmol/L (135-149)
[2022-05-22 09:56] LABS: Alanine Aminotransferase* 16 U/L (4-35); Alkaline Phosphatase* 61 U/L (40-150); Aspartate Amino Transferase* 19 U/L (12-35); Bilirubin Total* 0.4 mg/dL (0.1-1.5); Blood Urea Nitrogen* 14 mg/dL (7-30); Carbon Dioxide* 26 mmol/L (20-32); Creatinine* 0.7 mg/dL (0.5-1.5); Estimated Glomerular Filt Rate 103 ml/min; Glucose* 98 mg/dL (60-115); Total Protein* 6.7 g/dL (6.0-8.3)
--- NOTE | 2022-05-28 14:21 | ONC.NURNOTE ---
Call to patient to see how she is tolerating the Verzenio. Patient states she has no rash, diarrhea or shortness of breath. Overall, she states she is tolerating it well. The only change she is noting is that she is urinating more frequently after she takes it, hourly vs her normal every few hours. She is currently taking it at night, so this is disrupting her sleep and she is feeling burned out. I encouraged her to try taking it during the day to see if she notices any change. Patient has a long history of UTI and at this point doesn't feel that she currently has one. Patient has follow up scheduled 06/16 but will call sooner with any questions or concerns.
[2022-06-16 07:54] LABS: Basophils Percent Auto 0.9 % (0.0-3.0); Eosinophils Percent Auto 1.6 % (0.0-7.0); Hematocrit 38.3 % (33.0-51.0); Hemoglobin* 12.8 gm/dL (12.0-16.0); Immature Granulocytes Pct Auto 0.2 %; Mean Corpuscular HGB Conc 33 gm/dL (32-36); Mean Corpuscular Hemoglobin 32 pg (26-34); Mean Corpuscular Volume 94 fL (80-100); Monocytes Percent Auto 6.7 % (0.0-11.0); Neutrophils Percent Auto 64.6 % (42.0-72.0); Platelet Count* 201 K/uL (140-440); RDW Coefficient of Variation % 13.3 % (11.5-15.5); Red Blood Count 4.06 m/uL (4.00-5.20); White Blood Count* 4.31 K/uL (4.50-11.00)
[2022-06-16 07:58] LABS: Slide Review Reflex No
[2022-06-16 08:05] LABS: Chloride* 111 mmol/L (96-114)
[2022-06-16 08:06] LABS: Albumin* 3.9 g/dL (3.3-5.0); Potassium* 4.1 mmol/L (3.6-5.1); Sodium* 140 mmol/L (135-149)
[2022-06-16 08:08] LABS: Bilirubin Total* 0.3 mg/dL (0.1-1.5); Carbon Dioxide* 27 mmol/L (20-32); Creatinine* 0.9 mg/dL (0.5-1.5); Estimated Glomerular Filt Rate 76 ml/min
[2022-06-16 08:09] LABS: Alanine Aminotransferase* 17 U/L (4-35); Alkaline Phosphatase* 45 U/L (40-150); Aspartate Amino Transferase* 20 U/L (12-35); Blood Urea Nitrogen* 17 mg/dL (7-30); Calcium* 9.1 mg/dL (8.4-10.6); Glucose* 112 mg/dL (60-115); Total Protein* 6.8 g/dL (6.0-8.3)
[2022-06-19 22:43] LABS: Luteinizing Hormone 20.3 IU/L
[2022-07-14 08:08] LABS: Basophils Absolute Auto 0.02 K/uL (0.00-0.30); Basophils Percent Auto 0.4 % (0.0-3.0); Eosinophils Absolute Auto 0.06 K/uL (0.00-0.50); Eosinophils Percent Auto 1.3 % (0.0-7.0); Hematocrit 36.3 % (33.0-51.0); Hemoglobin* 12.1 gm/dL (12.0-16.0); Immature Granulocytes Abs Auto 0.01 K/uL (0.00-0.30); Immature Granulocytes Pct Auto 0.2 %; Lymphocytes Percent Auto 17.2 % (20-44); Mean Corpuscular HGB Conc 33 gm/dL (32-36); Mean Corpuscular Hemoglobin 32 pg (26-34); Mean Corpuscular Volume 96 fL (80-100); Monocytes Percent Auto 7.6 % (0.0-11.0); Neutrophils Percent Auto 73.3 % (42.0-72.0); Platelet Count* 230 K/uL (140-440); RDW Coefficient of Variation % 13.9 % (11.5-15.5); Red Blood Count 3.78 m/uL (4.00-5.20); White Blood Count* 4.76 K/uL (4.50-11.00)
[2022-07-14 08:10] LABS: Slide Review Reflex No
[2022-07-14 08:21] LABS: Albumin* 3.6 g/dL (3.3-5.0); Chloride* 112 mmol/L (96-114); Potassium* 3.9 mmol/L (3.6-5.1); Sodium* 141 mmol/L (135-149)
[2022-07-14 08:23] LABS: Creatinine* 0.8 mg/dL (0.5-1.5); Estimated Glomerular Filt Rate 88 ml/min
[2022-07-14 08:24] LABS: Alanine Aminotransferase* 17 U/L (4-35); Alkaline Phosphatase* 48 U/L (40-150); Aspartate Amino Transferase* 19 U/L (12-35); Bilirubin Total* 0.3 mg/dL (0.1-1.5); Blood Urea Nitrogen* 14 mg/dL (7-30); Calcium* 8.9 mg/dL (8.4-10.6); Carbon Dioxide* 23 mmol/L (20-32); Glucose* 102 mg/dL (60-115); Total Protein* 6.6 g/dL (6.0-8.3)
--- NOTE | 2022-07-14 12:37 | ONC.NURNOTE ---
Pt here for monthly f/u; saw Lena Quintana APRN. Detailed plan in Lena's note. In brief, pt c/o significant rash on left buttock; determined to be cellulitis. Pt to begin Keflex; BNN to call later this week to check in, as pt has multiple antibiotic allergies and history of various rashes. Pt has additional mild rash on legs and trunk consistent with dry skin/longstanding issue; pt to increase use of moisturizers. Ok to continue Abemaciclib. Zometa orders placed and sent for PA. Pt took Dental Clearance form with her for 3/ dentist visit. She was cleared for healing by oral surgeon from the procedure and now is being seen for general dental exam/clearance for bisphosphonate. RTC 08/[address] Arellano with possible Zometa infusion, if Dental Clearance obtained/PA in place.
--- NOTE | 2022-07-15 13:30 | URNOTE ---
Request received for authorization for Zoledronic Acid (J3489). Prior authorization is not required for start date 08-11-2022 to 08-12-2023, 4 doses Ref#[id number].
[2022-07-15 21:15] LABS: Estradiol Premenol Female 50 pg/mL
--- NOTE | 2022-07-16 13:44 | URNOTE ---
Request received for authorization for Zoledronic Acid (J3489).?Prior authorization is not required?for start date 08-08-2022 to 08-09-2023, 4 doses Ref#[id number].
[2022-08-07 09:00] LABS: Basophils Absolute Auto 0.04 K/uL (0.00-0.30); Basophils Percent Auto 0.9 % (0.0-3.0); Eosinophils Absolute Auto 0.09 K/uL (0.00-0.50); Hematocrit 36.3 % (33.0-51.0); Immature Granulocytes Abs Auto 0.01 K/uL (0.00-0.30); Immature Granulocytes Pct Auto 0.2 %; Lymphocytes Percent Auto 18.5 % (20-44); Mean Corpuscular HGB Conc 33 gm/dL (32-36); Mean Corpuscular Hemoglobin 32 pg (26-34); Mean Corpuscular Volume 96 fL (80-100); Monocytes Percent Auto 7.2 % (0.0-11.0); Neutrophils Absolute Auto 3.27 K/uL (1.7-7.0); Neutrophils Percent Auto 71.2 % (42.0-72.0); Platelet Count* 225 K/uL (140-440); RDW Coefficient of Variation % 15.4 % (11.5-15.5); Red Blood Count 3.78 m/uL (4.00-5.20); White Blood Count* 4.59 K/uL (4.50-11.00)
[2022-08-07 09:07] LABS: Slide Review Reflex No
[2022-08-07 09:17] LABS: Albumin* 3.6 g/dL (3.3-5.0); Chloride* 111 mmol/L (96-114); Potassium* 3.8 mmol/L (3.6-5.1); Sodium* 140 mmol/L (135-149)
[2022-08-07 09:19] LABS: Creatinine* 0.9 mg/dL (0.5-1.5); Estimated Glomerular Filt Rate 76 ml/min
[2022-08-07 09:20] LABS: Alanine Aminotransferase* 17 U/L (4-35); Alkaline Phosphatase* 52 U/L (40-150); Aspartate Amino Transferase* 19 U/L (12-35); Bilirubin Total* 0.3 mg/dL (0.1-1.5); Blood Urea Nitrogen* 15 mg/dL (7-30); Carbon Dioxide* 25 mmol/L (20-32); Glucose* 99 mg/dL (60-115); Total Protein* 6.6 g/dL (6.0-8.3)
[2022-08-07] MEDS: 0.9 % SODIUM CHLORIDE 250 ml IV (10:19)
[2022-08-07] MEDS: SODIUM CHLORIDE 0.9 % (FLUSH) 10 ML SYRINGE IVF (10:19)
[2022-08-07] MEDS: ZOLEDRONIC ACID 4 MG in 0.9 % SODIUM CHLORIDE 100 ml 100 ML 420 MG IVPB (10:19)
--- NOTE | 2022-08-07 14:25 | ONC.NURNOTE ---
Accompanied patient to her oncology visit. Printed information given to patient re: Zometa and side effects reviewed including flu like symptoms, bone pain and osteonecrosis of the jaw. Dental clearance has been obtained. Consent form signed.
== END 2022-08-13 23:59 | disposition home or self-care (01) ==
LOC: CCIC 08:15
PROVIDERS: Clinical Nurse Specialist; Internal Medicine Hematology & Oncology; Nurse Practitioner Family; PCP Family Medicine; Referring Provider Family Medicine; Visit Provider Physician Assistant
DX: C50.912 Malignant neoplasm of unspecified site of left female breast (principal); Z17.0 Estrogen receptor positive status [ER+]; Z79.810 Long term (current) use of selective estrogen receptor modulators (SERMs); R23.2 Flushing; T45.1X5A Adverse effect of antineoplastic and immunosuppressive drugs, initial encounter
CPT/HCPCS: 36415; 80053; 81003; 82670; 83001; 83002; 85025; 96374; 99202; 99205; 99212; 99214; 99215; J3489; J7050

== ENCOUNTER 2022-08-14 13:22 | Outpatient (CLI) | payer BC, SELFPAY ==
--- NOTE | 2022-07-16 11:57 | ONC.NURNOTE ---
Call to patient for an update on her condition. Patient states the rash is getting dietitian consultant on her buttocks. She continues to report itching to her legs, unchanged from her 07/14 visit. She denies fever but states she has had intermittent chills and sneezing today. She wonders if she is coming down with a cold. I instructed her to continue monitoring her symptoms closely and if her cold like symptoms worsen, to call her PCP for assessment. Patient will return call to [facility] if her rash worsens, otherwise, patient will complete her course of antibiotics and follow up as previously scheduled on 08/07.
--- NOTE | 2022-08-14 14:00 | CRLHL7_ITS ---
For Patients: As a result of the Century Cures Act, medical imaging exams and procedure reports are released immediately into your electronic medical record. You may view this report before your referring provider. If you have questions, please contact your health care provider. INDICATION: Left-sided breast cancer. Left lumpectomy. Axillary lymph node dissection. TECHNIQUE: Contrast enhanced chest CT 75 cc nonionic Isovue-370 administered. COMPARISON: April 03, 2022. FINDINGS: The previous is suggested ground-glass pulmonary opacities scattered throughout the left lung are no longer evident and may have been inflammatory in nature. Both lungs are now expanded and clear without pneumothoraces nodules or infiltrates. There is however minor subpleural fibrotic change within the left upper lobe which could reflect postradiation type change. The trachea and mainstem bronchi are patent and clear. There are no pleural or pericardial effusions. Postsurgical and post treatment changes of the left breast and left axilla. No thoracic lymphadenopathy. Normal caliber thoracic aorta. Images of the upper abdomen demonstrate normal adrenal glands. Bilateral renal cysts left greater than right. No splenomegaly. No acute rib or sternal fracture. No lytic or blastic lesion within the included skeleton. IMPRESSION: Postsurgical and post treatment change left breast and left axilla. Questionable minor subpleural fibrosis left upper lobe potentially postradiation in nature. No evidence for metastatic disease in the chest. Please note that all CT scans at this facility use dose modulation, iterative reconstruction, and/or weight-based dosing when appropriate to reduce radiation dose to as low as reasonably achievable. Dictated by James Hayden MD @ 08/14/2022 8:42:38 PM (Electronically Signed)
--- NOTE | 2022-08-14 15:00 | CRLHL7_ITS ---
For Patients: As a result of the Century Cures Act, medical imaging exams and procedure reports are released immediately into your electronic medical record. You may view this report before your referring provider. If you have questions, please contact your health care provider. BILATERAL SCREENING MAMMOGRAM WITH COMPUTER-AIDED DETECTION AND TOMOSYNTHESIS TECHNIQUE: CC and MLO views were obtained. These mammographic images have been obtained using full-field digital technique. These mammographic images were interpreted with the benefit of computer-aided detection. Breast Tomosynthesis was used in this interpretation. COMPARISON FILM: 03/15/21, 05/01/20, 09/07/18 FINDINGS: The breasts are extremely dense, which lowers the sensitivity of mammography IMPRESSION: There is no radiographic evidence for malignancy. ASSESSMENT: BI-RADS Category 2: Benign RECOMMENDATION: Routine screening mammogram in 1 year. A lay language report of this examination will be provided to the patient. James Hayden M.D. Diagnostic/Nuclear Medicine Radiologist [email or web address] ANA M/Dictated by: James Hayden MD @ 08/15/2022 8:17:00 AM (Electronically Signed)
== END 2022-08-14 13:23 | disposition home or self-care (01) ==
PROVIDERS: PCP Physician Assistant; Visit Provider Nurse Practitioner Family
DX: C50.912 Malignant neoplasm of unspecified site of left female breast (principal); R91.1 Solitary pulmonary nodule
CPT/HCPCS: 71260; 77063; 77067; Q9967

== ENCOUNTER 2022-08-29 15:05 | Outpatient (CLI) | payer BC, SELFPAY ==
--- NOTE | 2022-08-29 15:30 | CRLHL7_ITS ---
For Patients: As a result of the Century Cures Act, medical imaging exams and procedure reports are released immediately into your electronic medical record. You may view this report before your referring provider. If you have questions, please contact your health care provider. INDICATION: Left low back pain. COMPARISON: 07/12/2020. Technique Sagittal T1, T2, and STIR sequences. Axial T1 and T2 weighted sequences. FINDINGS: Grade 1 anterolisthesis of L4 on L5 measures approximately 6 mm. Otherwise, normal alignment. No fractures. No vertebral body loss of height. No ligamentous injury. No suspicious osseous lesions. Normal conus terminates at L1-2. [id number] L1-2: No spinal canal neural foraminal narrowing. L2-3: Stable disc degeneration and posterior disc bulge. Tiny central disc protrusion measures approximately 2 minutes short axis. No narrowing of the spinal canal. No neural foraminal narrowing. L3-4: Mild progressive disc degeneration and posterior disc bulge. Mild narrowing of the spinal canal. No neural foraminal narrowing. Mild facet arthropathy. L4-5: Progressive disc degeneration. Grade 1 anterolisthesis. Unroofed posterior disc bulge. Moderate narrowing of spinal canal. Oblique orientation of the bilateral foramina with mild narrowing. Severe facet arthropathy. L5-S1: Disc degeneration posted disc bulge. No narrowing of the spinal canal. No impingement of the traversing S1 nerve roots. No neural foraminal narrowing. Most arthropathy. Normal visualized SI joints. Bilateral renal cysts. IMPRESSION: 1. Grade 1 anterolisthesis of L4 on L5. Otherwise, normal alignment. No fractures 2. At L2-3, disc degeneration and posterior disc bulge. Tiny central disc protrusion. Otherwise, no spinal canal or neural foraminal narrowing. 3. At L3-4, mild progressive disc degeneration. Mild narrowing the spinal canal 4. At L4-5, progressive disc degeneration. Moderate narrowing of spinal canal. Mild narrowing of the bilateral foramina Dictated by Jasper Gallegos MD @ 08/29/2022 8:56:22 PM (Electronically Signed)
== END 2022-08-29 15:06 | disposition home or self-care (01) ==
LOC: MRI 15:06
PROVIDERS: PCP Physician Assistant; Visit Provider Orthopaedic Surgery
DX: M54.50 Low back pain, unspecified (principal); M51.36 Other intervertebral disc degeneration, lumbar region
CPT/HCPCS: 72148

== ENCOUNTER 2022-11-03 07:40 | Outpatient (RCR) | payer BC, SELFPAY ==
[2022-09-08 10:00] LABS: Albumin* 3.6 g/dL (3.3-5.0)
[2022-09-08 10:01] LABS: Chloride* 108 mmol/L (96-114); Potassium* 4.5 mmol/L (3.6-5.1); Sodium* 137 mmol/L (135-149)
[2022-09-08 10:03] LABS: Aspartate Amino Transferase* 18 U/L (12-35); Bilirubin Total* 0.2 mg/dL (0.1-1.5); Carbon Dioxide* 25 mmol/L (20-32); Creatinine* 0.9 mg/dL (0.5-1.5); Estimated Glomerular Filt Rate 76 ml/min; Total Protein* 6.6 g/dL (6.0-8.3)
[2022-09-08 10:04] LABS: Alanine Aminotransferase* 13 U/L (4-35); Alkaline Phosphatase* 42 U/L (40-150); Blood Urea Nitrogen* 14 mg/dL (7-30); Calcium* 8.7 mg/dL (8.4-10.6); Glucose* 97 mg/dL (60-115)
[2022-09-08 10:12] LABS: Basophils Percent Auto 0.9 % (0.0-3.0); Eosinophils Percent Auto 1.2 % (0.0-7.0); Hematocrit 35.4 % (33.0-51.0); Hemoglobin* 11.8 gm/dL (12.0-16.0); Immature Granulocytes Pct Auto 0.9 %; Lymphocytes Percent Auto 17.7 % (20-44); Mean Corpuscular HGB Conc 33 gm/dL (32-36); Mean Corpuscular Hemoglobin 32 pg (26-34); Mean Corpuscular Volume 97 fL (80-100); Monocytes Percent Auto 10.9 % (0.0-11.0); Neutrophils Percent Auto 68.4 % (42.0-72.0); Platelet Count* 253 K/uL (140-440); RDW Coefficient of Variation % 15.5 % (11.5-15.5); Red Blood Count 3.66 m/uL (4.00-5.20); Slide Review Reflex No; White Blood Count* 4.23 K/uL (4.50-11.00)
[2022-10-06 07:57] LABS: Basophils Percent Auto 1.2 % (0.0-3.0); Eosinophils Percent Auto 2.4 % (0.0-7.0); Hematocrit 36.3 % (33.0-51.0); Hemoglobin* 12.1 gm/dL (12.0-16.0); Immature Granulocytes Pct Auto 1.2 %; Lymphocytes Percent Auto 23.7 % (20-44); Mean Corpuscular HGB Conc 33 gm/dL (32-36); Mean Corpuscular Hemoglobin 33 pg (26-34); Mean Corpuscular Volume 100 fL (80-100); Monocytes Percent Auto 9.7 % (0.0-11.0); Neutrophils Percent Auto 61.8 % (42.0-72.0); Platelet Count* 236 K/uL (140-440); RDW Coefficient of Variation % 13.8 % (11.5-15.5); Red Blood Count 3.64 m/uL (4.00-5.20); White Blood Count* 4.22 K/uL (4.50-11.00)
[2022-10-06 07:59] LABS: Slide Review Reflex No
[2022-10-06 09:07] LABS: Albumin* 3.7 g/dL (3.3-5.0); Chloride* 109 mmol/L (96-114); Potassium* 4.2 mmol/L (3.6-5.1); Sodium* 140 mmol/L (135-149)
[2022-10-06 09:09] LABS: Creatinine* 0.8 mg/dL (0.5-1.5); Estimated Glomerular Filt Rate 88 ml/min
[2022-10-06 09:10] LABS: Alanine Aminotransferase* 16 U/L (4-35); Alkaline Phosphatase* 48 U/L (40-150); Aspartate Amino Transferase* 23 U/L (12-35); Bilirubin Total* 0.3 mg/dL (0.1-1.5); Blood Urea Nitrogen* 13 mg/dL (7-30); Carbon Dioxide* 25 mmol/L (20-32); Glucose* 98 mg/dL (60-115); Total Protein* 6.7 g/dL (6.0-8.3)
[2022-10-06 09:11] LABS: Calcium* 8.9 mg/dL (8.4-10.6)
[2022-10-07 23:41] LABS: Vitamin D, 1,25-Dihydroxy 55.3 pg/mL (19.9-79.3)
[2022-11-03 08:06] LABS: Basophils Absolute Auto 0.03 K/uL (0.00-0.30); Basophils Percent Auto 0.6 % (0.0-3.0); Eosinophils Absolute Auto 0.06 K/uL (0.00-0.50); Eosinophils Percent Auto 1.2 % (0.0-7.0); Hematocrit 37.3 % (33.0-51.0); Hemoglobin* 12.3 gm/dL (12.0-16.0); Immature Granulocytes Abs Auto 0.01 K/uL (0.00-0.30); Immature Granulocytes Pct Auto 0.2 %; Lymphocytes Percent Auto 19.7 % (20-44); Mean Corpuscular HGB Conc 33 gm/dL (32-36); Mean Corpuscular Hemoglobin 34 pg (26-34); Mean Corpuscular Volume 102 fL (80-100); Monocytes Percent Auto 8.8 % (0.0-11.0); Neutrophils Absolute Auto 3.39 K/uL (1.7-7.0); Neutrophils Percent Auto 69.5 % (42.0-72.0); Platelet Count* 231 K/uL (140-440); RDW Coefficient of Variation % 12.7 % (11.5-15.5); Red Blood Count 3.67 m/uL (4.00-5.20); White Blood Count* 4.88 K/uL (4.50-11.00)
[2022-11-03 08:13] LABS: Slide Review Reflex No
[2022-11-03 08:18] LABS: Albumin* 3.8 g/dL (3.3-5.0); Chloride* 107 mmol/L (96-114); Sodium* 135 mmol/L (135-149)
[2022-11-03 08:19] LABS: Potassium* 4.3 mmol/L (3.6-5.1)
[2022-11-03 08:21] LABS: Alanine Aminotransferase* 14 U/L (4-35); Alkaline Phosphatase* 42 U/L (40-150); Aspartate Amino Transferase* 20 U/L (12-35); Bilirubin Total* 0.3 mg/dL (0.1-1.5); Blood Urea Nitrogen* 18 mg/dL (7-30); Carbon Dioxide* 27 mmol/L (20-32); Creatinine* 1.1 mg/dL (0.5-1.5); Estimated Glomerular Filt Rate 60 ml/min; Glucose* 91 mg/dL (60-115)
[2022-11-03 08:22] LABS: Calcium* 8.8 mg/dL (8.4-10.6)
[2022-11-03 10:01] LABS: Magnesium* 1.9 mg/dL (1.5-2.6)
== END 2023-02-23 11:48 | disposition home or self-care (01) ==
LOC: CCIC 07:40
PROVIDERS: Otolaryngology; PCP Physician Assistant; Referring Provider Physician Assistant; Visit Provider Physician Assistant
DX: C50.912 Malignant neoplasm of unspecified site of left female breast (principal); Z17.0 Estrogen receptor positive status [ER+]; G62.0 Drug-induced polyneuropathy; T45.1X5A Adverse effect of antineoplastic and immunosuppressive drugs, initial encounter; I97.2 Postmastectomy lymphedema syndrome; R68.82 Decreased libido; K52.1 Toxic gastroenteritis and colitis
CPT/HCPCS: 36415; 80053; 82652; 82728; 83735; 84443; 85025; 99212; 99214; 99215

== ENCOUNTER 2022-11-11 16:15 | Outpatient (RCR) | payer BC, SELFPAY | END 2022-12-25 10:40 | disposition home or self-care (01) | PROVIDERS: PCP Physician Assistant; Visit Provider Orthopaedic Surgery | DX: M54.16 Radiculopathy, lumbar region (principal); Z51.89 Encounter for other specified aftercare | CPT/HCPCS: 97110; 97112; 97140; 97163; 97535 ==

== ENCOUNTER 2022-11-12 08:40 | Day surgery (SDC) | payer BC, SELFPAY ==
[2022-11-12] VITALS (13 sets, daily range): BP systolic 96–119; BP diastolic 54–84; PULSE 51–70; RESP 12–16; TEMP 36.3–36.8; O2SAT 95–98; BMI 30.7
[2022-11-12] MEDS: LACTATED RINGERS 1000 ML 1,000 ML 100 ML IV (09:15)
[2022-11-12] MEDS: SODIUM CHLORIDE 0.9 % (FLUSH) 10 ML SYRINGE IVF (09:15)
[2022-11-12] MEDS: OXYMETAZOLINE 0.05% NASAL SPRAY 2 SPRAY NOSTRIL-B (09:35)
--- NOTE | 2022-11-12 09:56 | W.ANESCHARGE ---
Anesthesia Charges Start Date/Time Anesthesia Start Date: 11/12/22 Anesthesia Start Time: 11:28 Stop Date/Time Anesthesia Stop Date: 11/12/22 Anesthesia Stop Time: 12:17
[2022-11-12] MEDS: COCAINE HCL 4 % 4 ML SOLUTION NOSTRIL-L (11:55)
[2022-11-12] MEDS: AYR SALINE NASAL GEL 1 APPLIC NOSTRIL-L (12:00)
[2022-11-12] MEDS: BUPIVACAINE 0.5 %/EPI 1:200K 30 ML INJECTION (12:00)
[2022-11-12] MEDS: MUPIROCIN 1 GM PACKET 1 APPLIC TOPICAL (12:00)
--- NOTE | 2022-11-12 12:03 | W.PM.ENTPROC ---
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 0 degree endoscopy was also used throughout the procedure. Patient was prepped and draped in usual fact that fashion after general endotracheal anesthesia then induced. The nose was decongested with cocaine pledgets and then injected. The inferior quarter of the uncinate process was taken down there was an accessory os to the maxillary sinus this was connected to the natural os and a 1.2 cm antrostomy was created. There was large amount of purulent fluid and polypoid mucosa lining the left maxillary sinus majority of this was removed with care taken to avoid the dental implant. The sinus was then irrigated with the [employer] sinus circle beveler. The ethmoid bulla was taken down and a moderate to large amount of polypoid tissue was removed dissection was carried out in an anterior to posterior direction completing the ethmoidectomy. All specimens were sent to pathology. A Merocel pack was trimmed lengthwise and 1 was placed in the middle meatus and 1 beneath the middle turbinate. The patient procedure well was taken recovery in satisfactory condition after extubation. Blood loss was less than 20 mL. Surgeon: Ryan Salinas MD
--- NOTE | 2022-11-12 12:10 | W.ANESCHARGE ---
Anesthesia Charges Start Date/Time Anesthesia Start Date: 11/12/22 Anesthesia Start Time: 11:28 Stop Date/Time Anesthesia Stop Date: 11/12/22 Anesthesia Stop Time: 12:17
[2022-11-12] MEDS: ACETAMINOPHEN 325 MG TABLET PO (12:41)
== END 2022-11-12 14:00 | disposition home or self-care (01) ==
LOC: OR 08:41
PROVIDERS: PCP Physician Assistant; Visit Provider Otolaryngology
PROC: (CPT 31231; principal; 2022-11-12 10:00)
DX: J32.0 Chronic maxillary sinusitis (principal); J32.2 Chronic ethmoidal sinusitis
CPT/HCPCS: 31255; 31267; 00160; 88305; 88311; A9270; J0330; J1100; J2405; J2704; J3010; J3490; J7120

== ENCOUNTER 2022-12-01 16:00 | Outpatient (CLI) | payer BC, SELFPAY ==
--- OUTSIDE RECORDS SUMMARY | 2022-12-03 08:53 | XMS_ITS | Continuity of Care Document ---
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 Operator Name Role Phone Gabrielle Rodriguez MD Unavailable Unavailable Allergies, Adverse Reactions, Alerts Substance Reaction Status Criticality gabapentin Active No Information adhesive Rash Active No Information CIPROFLOXACIN HCL Rash and Trouble Breathing Active No Information ciprofloxacin Rash and Trouble Breathing Active No Information vancomycin Rash and Breathing Issues Active No Information AMOXICILLIN TRIHYDRATE trouble breathing Active No Information Sulfa (Sulfonamide Antibiotics) hives/ rashes Active No Information Medications Medication Instructions Dosage Effective Dates (start - stop) Status Comments VERZENIO (unknown strength) Not Available - Active TAMOXIFEN CITRATE (unknown strength) Not Available - Active CRANBERRY (unknown strength) Not Available - Active HAIR, SKIN AND NAILS (unknown strength) Not Available - Active PROBIOTIC (unknown strength) Not Available - Active ZOLEDRONIC ACID (unknown strength) Not Available - Active VITAMIN D3 (unknown strength) Not Available - Active SYNTHROID (unknown strength) Not Available - Active Procedures Procedure Date OFFICE/OUTPATIENT VISIT EST Phone Office/Outpatient Visit,[facility], [facility] 2022 Office/Outpatient Visit,[facility], Mod 2018 X-Ray Exam Of Spine, Single View 2018 Office/Outpatient Visit,Est, Mod 2018 X-Ray Exam Of Spine, Single View 2018 Office/Outpatient Visit,Est, Mod 2017 X-Ray Exam Of Spine, Single View 2017 Office/Outpatient Visit,Est, Mod 2017 X-Ray Exam Of Spine, Single View 2017 Postop Followup Visit X-Ray Exam Of Spine, Single View 2016 Remove Vertebral Body, Cerv, Single Neck Spine Fusion (Cerv,Below C2) Insert interbody cage W corpectomy and f usion Allograft, Spine Surg, Morselized Assist Remove Vertebral Body, Cerv, Sing le Neck Spine Fusion (Cerv,Below C2) Assist Insert interbody cage W corpectom y and fusion Office/Outpatient Visit,Est, Mod 2016 Office/Outpatient Visit,Est, Mod 2016 Office/Outpatient Visit,New, Mod 2016 Advance Directives Directive Yes / No Effective Date File Name No Information Encounters Encounter Description Practice Location Reason(s) For Visit Diagnoses Date Provider Providers Copied on Encounter OFFICE/OUTPA TIENT VISIT EST Phone [facility], [address], [place], [place], [id number] , [place] tel: [phone] [facility] No Information 3 Michael Anthony. [facility] [place], [address] [place] [address], [address], [place], [address], [place]. tel: [phone] Referring Provider: Lorenzo Dc, [facility] [address] [place] [address], [address], [place], [address]. tel:[phone] Office/Outpa tient Visit,New, Mod [facility], [address], [place], [place], [id number] , [place] tel:[phone] [facility] Spinal stenosis, lumbar region with neurogenic claudication 3 Michael Anthony. [facility], [address] [place] [address], [address], [place], [address], [place]. [phone] Referring Provider: Lorenzo Dc, [facility] [address], [address], [place], [address]. tel:[phone] Office/Outpa tient Visit,Est, Mod [facility], [address], [place], [place], [address] , [place] tel: [phone] [facility] Encounter for follow-up examination after completed treatment for conditions other than malignant neoplasmSpinal stenosis, lumbar region with neurogenic claudication 9 Dcebony Alcazar er. [facility], [address], [address], [place], [place], [id number] , [place]. tel: [phone] Referring Provider: Lorenzo Dc, [facility] [address], [address], [place], [address]. tel:[phone] Office/Outpa tient Visit,Est, Mod [facility], [address], [place], [id number] , [place] tel: [phone] [facility] Encounter for other specified surgical aftercare 9 Dcebony Alcazar er. [facility], [address] [place] [address], [address], [facility] [place], [id number] , [place]. tel:[phone] Referring Provider: Rachelle Canela [facility] [address] [place], [address]. tel:[phone] Office/Outpa tient Visit,Est, Mod [facility], [address], [place], [place], [address] , [place] tel: [phone] [facility] Encounter for other specified surgical aftercare 8 Dao Alcazar er. [facility], [address], [address], [place], [address] , [place]. tel:[phone] Referring Provider: Rachelle Canela [facility] [address] [place], [address]. [phone] Office/Outpa tient Visit,Est, Mod [facility], [address], [place], [address] , [place] tel: [phone] [facility] Encounter for other specified surgical aftercare Dao zapata. [facility], [address], [address], [place], [place], [address] , [place]. tel: [phone] Referring Provider: Rachelle Canela [facility] [address] [place], [address]. tel:[phone] [facility], [address], [place], [place], [id number] , [place] tel: [phone] [facility] Encounter for other specified surgical aftercare Dao zapata. [facility], [address] [place] [address], [address], [place], [place], [address] , [place]. tel: [phone] Referring Provider: Rachelle Canela [facility] [address] [place], [address]. tel:[phone] [facility], [address], [place], [place], [address] , [place] tel: [phone] [facility] No Information Dao zapata. [facility], [address], [address], [place], [place], [id number] , [place]. tel: [phone] Referring Provider: Rachelle Canela [facility] [address] [place], [address]. tel:[phone] Office/Outpa tient Visit,Est, Mod [facility], [address], [place], [place], [address] , [place] tel: [phone] [facility] Spinal stenosis, cervical region Dao zapata. [facility], [address] [place] [address], [address], [place], [place], [address] , [place]. tel:[phone] Referring Provider: Rachelle Canela [facility] [address] [place], [address]. tel:[phone] Office/Outpa tient Visit,Est, Mod [facility], [address], [place], [id number] , [place] [phone] [facility] Spinal stenosis, cervical regionCervical disc disorder at C5-C6 level with myelopathy 7 Dao zapata. [facility], [address], [address], [place], [id number] , [place]. [phone] Referring Provider: Rachelle Canela [facility] [address] [place], [address]. tel:[phone] Office/Outpa tient Visit,New, Mod [facility], [address], [place], [id number] , [place] [phone] [facility] Spinal stenosis, cervical regionCervical disc disorder at C5-C6 level with myelopathy 7 Riki Hodges. [facility], [address], [place], [id number] , [place]. tel:[phone] Referring Provider: Rachelle Canela [facility] [address] [place], [address]. tel:[phone] Family History Family Member Type Diagnosis Age At Onset No Information Payers Payer name Insurance type Covered republican ID Authoramanda hubbard(s) [facility] [id number] [facility] [id number] Social History Type Description Quantity Date Captured Comments Sex Female Smoking Status No Information Chief Complaint And Reason For Visit No Information Reason For Referral Reason For Referral No Information Plan Of Treatment Date Type Action Status No Information History Of Present Illness Encounter Date Complaint History Of Prese nt Illness No Information Functional Status Date Functional Assessmen t No Information Instructions Date Instruction Additional Infor mation Weight Management Education Rela eduardo to Overweight Weight management: I nstructed to return to General Practitioner timeframe: 1 Month. Related to Overweight Weight Management Education Rela eduardo to Overweight Weight management: I nstructed to return to General Practitioner timeframe: 1 Month. Related to Overweight Assessments Type Assessment Date No Information Patient Care Teams Name Effective Dates (start - stop) Status Members No Information
== END 2022-12-01 16:01 | disposition home or self-care (01) ==
LOC: NFLDREF 12-03 08:51
PROVIDERS: PCP Physician Assistant; Referring Provider Physician Assistant
DX: Z01.818 Encounter for other preprocedural examination (principal); C50.919 Malignant neoplasm of unspecified site of unspecified female breast
CPT/HCPCS: 80053

== ENCOUNTER 2023-02-03 15:45 | Outpatient (RCR) | payer BC, SELFPAY ==
--- NOTE | 2022-02-19 10:50 | ONC.NURNOTE ---
Patient called clarifying the max dose of Loperamide to be 16 mg/day. She plans to start on 02/26 instead of 02/24 d/t appts in [facility] all day 02/25.
--- NOTE | 2022-04-03 16:26 | ONC.NURNOTE ---
Pt called this morning noting she has been having increased itching and now notices shortness of breath. She had been treating what she thought was a yeast infection last week, but rash has since spread to legs and belly, with today her chest becoming itchy. She notices a change in her breathing pattern today; tightness with taking a deep breath and feeling of a weight on her chest. She is concerned this is an allergic reaction to the Verzenio, as she took Benadryl last night and had improvement in itching but after taking Verzenio this morning the itching and rash has spread, with addition of respiratory symptoms. Recommended pt be seen in ED. Reviewed with Brittany Knight CNP; recommended pt hold Verzenio until can be seen in clinic. Pt agreeable to this plan. See ED notes. Pt scheduled to follow up with [facility]; moved pt up to an opening on 04/07 @1430 and LM for pt to call back to confirm.
--- NOTE | 2022-06-09 16:22 | ONC.NURNOTE ---
Pt called noting heartburn with taking Abemaciclib; she has had this issue previously and is well-manage with Pepcid BID. Called in prescription for Pepcid 20 mg PO BID PRN Heartburn #30 per Lena Quintana APRN. Pt also notes when she saw Dr. Braga (sp?) at [facility] to monitor menopause, they suggested repeat menopause labs in 6 and 12 months. She would like this done with her upcoming labs/ appt to review when appropriate to switch from Tamoxifen to possibly an AI. Pastrycook to review with Lena Quintana APRN.
--- NOTE | 2022-11-28 16:18 | ONC.NURNOTE ---
Pt called notifying us that she is having left arm Lymphovenous Bypass surgery at [facility] on 02/09/23; it is expected to be a 10 hr surgery. At her surgery visit, the surgeon said continuing Verzenio and Zometa should be fine, but has concern about increased clotting risk with Tamoxifen. BNN to review with Dr. Tim at next clinic.
== END 2023-02-04 10:29 | disposition home or self-care (01) ==
PROVIDERS: PCP Family Medicine; Referring Provider Family Medicine; Visit Provider Internal Medicine
DX: I89.0 Lymphedema, not elsewhere classified (principal); Z51.89 Encounter for other specified aftercare
CPT/HCPCS: 97110; 97112; 97140; 97163; 97165; 97530; 97535; X5282

== ENCOUNTER 2023-02-06 15:37 | Outpatient (CLI) | payer BC, SELFPAY ==
--- OUTSIDE RECORDS SUMMARY | 2023-02-09 14:53 | XMS_ITS | Continuity of Care Document ---
Author Name Unknown Organization [facility] Address [address] [place] [address] Phone Care Team Providers Care Obstetrics And Gynecology Professor Name Role Phone Gabrielle Rodriguez MD Unavailable [...] Procedure Date OFFICE/OUTPATIENT VISIT EST Phone Office/Outpatient Visit,New, Mod 2022 Office/Outpatient Visit,[facility], Mod 2018 X-Ray Exam Of Spine, [...] EST Phone [facility], [address], [place], [place], [address] , [place] tel: [phone] [facility] No Information 3 Michael Anthony. [facility] [place], [address] [place] [address], [address], [place], [address], [place]. tel: [phone] Referring Provider: Lorenzo Dc, [facility] [address] [place] [address], [address], [place], [address]. tel:[phone] Office/Outpa tient Visit,New, Mod [facility], [address], [place], [place], [address] , [place] tel:[phone] [facility] Spinal stenosis, lumbar region with neurogenic claudication 3 Michael Anthony. [facility], [address] [place] [address], [address], [place], [address], [place]. [phone] Referring Provider: Lorenzo Dc, [facility] [address], [address], [place], [address]. tel:[phone] Office/Outpa tient Visit,Est, Mod [facility], [address], [place], [address] , [place] tel: [phone] [facility] Encounter for follow-up examination after completed treatment for conditions other than malignant neoplasmSpinal stenosis, lumbar region with neurogenic claudication 9 Dcebony Alcazar er. [facility] [place], [address], [address], [place], [address] , [place]. tel: [phone] Referring Provider: Lorenzo Dc, [facility] [place] [address] [place], [address], [place], [address]. tel:[phone] Office/Outpa tient Visit,Est, Mod [facility], [address], [place], [place], [address] , [place] tel: [phone] [facility] Encounter for other specified surgical aftercare 9 Dcebony Alcazar er. [facility], [address] [place] [address], [address], [facility] [place], [address] , [place]. tel:[phone] Referring Provider: Rachelle Canela [facility] [address] [place], [address]. tel:[phone] Office/Outpa tient Visit,Est, Mod [facility], [address], [place], [address] , [place] tel: [phone] [facility] Encounter for other specified surgical aftercare 8 Dao Alcazar er. [facility], [address], [address], [place], [place], [address] , [place]. tel:[phone] Referring Provider: Rachelle Canela [facility] [address] [place], [address]. [phone] Office/Outpa tient Visit,Est, Mod [facility], [address], [place], [address] , [place] tel: [phone] [facility] Encounter for other specified surgical aftercare Dao zapata. [facility] [place], [address], [address], [place], [place], [address] , [place]. tel: [phone] Referring Provider: Rachelle Canela [facility] [address] [place], [address]. tel:[phone] [facility], [address], [place], [place], [address] , [place] tel: [phone] [facility] Encounter for other specified surgical aftercare Dao zapata. [facility], [address] [place] [address], [address], [place], [place], [address] , [place]. tel: [phone] Referring Provider: Rachelle Canela [facility] [address] [place], [address]. tel:[phone] [facility], [address], [place], [place], [address] , [place] tel: [phone] [facility] No Information Dao zapata. [facility], [address], [address], [place], [place], [address] , [place]. tel: [phone] Referring Provider: Rachelle Canela [facility] [address] [place], [address]. tel:[phone] Office/Outpa tient Visit,Est, Mod [facility], [address], [place], [place], [address] , [place] tel: [phone] [facility] [place] Spinal stenosis, cervical region Dao zapata. [facility] [place], [address] [place] [address], [address], [place], [place], [address] , [place]. tel:[phone] Referring Provider: Rachelle Canela [facility] [address] [place], [address]. tel:[phone] Office/Outpa tient Visit,Est, Mod [facility], [address], [place], [address] , [place] [phone] [facility] Spinal stenosis, cervical regionCervical disc disorder at C5-C6 level with myelopathy 7 Dao zapata. [facility] [place], [address], [address], [place], [address] , [place]. [phone] Referring Provider: Rachelle Canela [facility] [address] [place], [address]. tel:[phone] Office/Outpa tient Visit,New, Mod [facility], [address], [place], [address] , [place] tel:[phone] [facility] Spinal stenosis, cervical regionCervical disc disorder at C5-C6 level with myelopathy 7 Riki Hodges. [facility] [place], [address] [place] [address] [address], [place], [id number] , [place]. tel:[phone] Referring Provider: Rachelle Canela [facility] [address] [place], [address]. tel:[phone] Family History Family Member Type Diagnosis Age At Onset No Information Payers Payer name Insurance type Covered [employer] party ID Authoramanda hubbard(s) [id number] [facility] [id number] Social History Type Description Quantity Date Captured Comments Sex Female Smoking Status No Information Chief Complaint And Reason For Visit No Information Reason For Referral Reason For Referral No Information History Of Present Illness Encounter [...]
== END 2023-02-06 15:38 | disposition home or self-care (01) ==
LOC: NFLDREF 02-09 14:50
PROVIDERS: PCP Physician Assistant; Referring Provider Physician Assistant; Visit Provider Internal Medicine Hematology & Oncology
DX: C50.919 Malignant neoplasm of unspecified site of unspecified female breast (principal); N60.91 Unspecified benign mammary dysplasia of right breast
CPT/HCPCS: 82670; 83001; 83002

== ENCOUNTER 2023-03-23 10:25 | Emergency (ER) | payer BC, SELFPAY ==
[2023-03-23 10:31] VITALS: BP 132/83; PULSE 70; RESP 18; TEMP 36.7; O2SAT 99; BMI 32.4
--- NOTE | 2023-03-23 11:12 | ED_ITS ---
HPI - General Adult General Time Seen by Provider: 11:12 Date Seen: 03/23/23 Chief complaint: Abdominal Pain Stated complaint: From [facility]--tender belly, black stool Time Seen by Provider: 03/23/23 11:00 History of Present Illness HPI narrative: This is a 52-year-old female with a history of Stage IIB, pT2 pN2a cM, ER+NV+ HER2(low), G3, ki67 14%, invasive ductal carcinoma s/p lumpectomy, chemotherapy, radiation therapy, now on maintenance therapy with tamoxifen, abemaciclib. 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 She is referred to the ER today from the cancer infusion clinic. According to their notes; Patient presents today for breast cancer evaluation. She notes depression symptoms are improving. Lymphedema improving. Taking tamoxifen abemaciclib as prescribed. Taking vitamin-D. Since her lymphedema surgery, she is at increased numbness and pain in her left upper extremity; however, lymphedema slightly improving. She is gaining weight and eating well. No breast changes. No new pain or headaches She is going back to work full-time today. Endorses 1 week of black watery sticky stools; no bright red blood; no coffee- ground appearance; no emesis. Associated belching. Endorses left lower quadrant pain and cramping. Has been eating less. Increased diarrhea overall. Symptoms are improving over the week. No palpable small, iron, recent medication changes. Also endorses 1 week of left ear pain. Has cleaned out her ear with ear cleaning solution. Has not put a Q-tip deep in her ear canal; has been using her finger and a cotton round. Has not had this evaluated yet by her ENT or her primary care provider. She has hearing loss at baseline Labs from clinic this morning sodium 137, potassium 4.2, chloride 109, bicarb 22, calcium 8.7, glucose 90, BUN 17, creatinine 0.9 AST 29, ALT 17, alk-phos 50 through, total bilirubin 0.2 WBC 4.7, hemoglobin 12.0, platelet 220sodium 137, potassium 4.2, chloride 109, bicarb 22, calcium 8.7, glucose 90, BUN 17, creatinine 0.9 AST 29, ALT 17, alk-phos 50 through, total bilirubin 0.2 WBC 4.7, hemoglobin 12.0, platelet 220 Per patient she does struggle with longstanding diarrhea which is a side effect of her Abemaciclib. However since Thursday the diarrhea has increased in frequency. She said she had at least 5 episodes of diarrhea on Thursday and they were all very dark black. Typically her stools are brownish to yellowish. She took 2 Imodium AD on Thursday. She notes that she is typically quite sensitive to that medicine and the diarrhea will stop after a couple of hours. However she did have a couple more episodes diarrhea even after taking the med. Yesterday she is still having less frequent diarrhea. Stools are still black. No blood. No mucus. She has been eating and drinking less than normal but not really nauseous. No vomiting. No hematemesis. No fevers but she did feel little bit chilled yesterday. No urinary symptoms. She was on antibiotics several weeks ago for a possible UTI. She also had surgery about 6 weeks ago at [facility] to help resolve her lymphedema. No formal diagnosis of diverticulitis, colitis, Crohn's disease, UC. She does recall about 6 years ago she had an episode of abdominal pain that might have been ulcers but she never had a formal endoscopy. Related Data Home Medications Medication Instructions Recorded Confirmed cholecalciferol (vitamin D3) 50 50 mcg PO QDAY 02/03/22 03/23/23 mcg (2,000 unit) capsule levothyroxine 75 mcg tablet 75 mcg PO QDAY 02/03/22 03/23/23 Florify .Route DAILY 02/18/22 03/23/23 cranberry 400 mg capsule 400 mg PO QDAY 02/18/22 03/23/23 loperamide 2 mg tablet (Imodium 2 - 8 mg PO Q6H PRN 09/08/22 03/23/23 A-D) Hair/Skin/Nails Not Applicable DAILY PRN 10/06/22 03/23/23 ondansetron 4 mg disintegrating 4 mg PO Q8H PRN 01/26/23 03/23/23 tablet acetaminophen 500 mg tablet 1,000 mg PO Q6H PRN 02/24/23 03/23/23 (Tylenol Extra Strength) cetirizine 10 mg capsule (Zyrtec) 10 mg PO QDAY PRN 02/24/23 03/23/23 Previous Rx's Medication Instructions Recorded abemaciclib 150 mg tablet 150 mg PO DIRECTED #42 tabs 03/12/23 tamoxifen 20 mg tablet 20 mg PO QDAY #100 tabs 03/23/23 Allergies Allergy/AdvReac Type Severity Reaction Status Date / Time adhesive Allergy Severe itching Verified 03/23/23 14:42 amoxicillin Allergy Severe Rash, Verified 03/23/23 14:42 trouble breathing vancomycin Allergy Severe rash, Verified 03/23/23 14:42 trouble breathing ciprofloxacin Allergy Intermediate Rash Verified 03/23/23 14:42 Sulfa (Sulfonamide Allergy Intermediate Respiratory Verified 03/23/23 14:42 Antibiotics) distress gabapentin Allergy Mild suicidal Verified 03/23/23 14:42 oxybutynin AdvReac Verified 03/23/23 14:42 silicone adhesives Allergy Mild Rash Uncoded 03/23/23 14:42 [facility] Medical History (Updated 03/23/23 @ 15:42 by Willam Martínez MD) Urinary tract infection ?N39.0 - Urinary tract infection, site not specified (ICD-10) Urge incontinence of urine ?N39.41 - Urge incontinence (ICD-10) Spinal stenosis of cervical region ?M48.02 - Spinal stenosis, cervical region (ICD-10) Spinal cord injury Sinus bradycardia ?R00.1 - Bradycardia, unspecified (ICD-10) Preglaucoma ?H40.009 - Preglaucoma, unspecified, unspecified eye (ICD-10) Osteoarthritis of cervical spine with myelopathy ?M47.12 - Other spondylosis with myelopathy, cervical region (ICD-10) Orthostatic hypotension ?I95.1 - Orthostatic hypotension (ICD-10) Numbness and tingling in both hands ?R20.0 - Anesthesia of skin (ICD-10) ?R20.2 - Paresthesia of skin (ICD-10) Meniere's disease ?H81.09 - Meniere's disease, unspecified ear (ICD-10) Hypothyroidism ?E03.9 - Hypothyroidism, unspecified (ICD-10) Herniation of intervertebral disc of cervical region ?M50.20 - Other cervical disc displacement, unspecified cervical region (ICD- 10) Gastroenteritis ?K52.9 - Noninfective gastroenteritis and colitis, unspecified (ICD-10) Cystocele with uterine prolapse ?N81.4 - Uterovaginal prolapse, unspecified (ICD-10) Acute tetraplegia ?G82.50 - Quadriplegia, unspecified (ICD-10) Dysuria ?R30.0 - Dysuria (ICD-10) Surgical History History of total vaginal hysterectomy (TVH) ?Z90.710 - Acquired absence of both cervix and uterus (ICD-10) History of discectomy ?Z98.890 - Other specified postprocedural states (ICD-10) Social History Smoking Status: Never smoker Do you use any of these nicotine containing products: None Second hand tobacco smoke exposure: No How often do you have a drink containing alcohol: never How often do you have six or more drinks on one occasion: Never AUDIT-C Alcohol total score: 0 Non-prescribed substance use: denies use Caffeine: Yes (occasionally) Are you using contraception or practicing any form of control: No (hysterectomy) Exam 2 Narrative: Exam Narrative: Constitutional: Appears well-developed and well-nourished. Alert. Conversant. Non toxic. HENT: Head: Atraumatic. Nose: Nose normal. Mouth/Throat: Oral mucosa is clear and moist. no trismus. Pharynx normal. Tonsils symmetric. No tonsillar enlargement, erythema, or exudate. Eyes: Conjunctivae normal. EOM normal. Pupils equal, round, and reactive to light. No scleral icterus. Neck: Normal range of motion. Neck supple. No tracheal deviation present. Cardiovascular: Normal rate, regular rhythm. No gallop. No friction rub. No murmur heard. Symmetric radial artery pulses Pulmonary/Chest: Effort normal. No stridor. No respiratory distress. No wheezes. No rales. No rhonchi . No tenderness. Abdominal: Soft. Bowel sounds diminished. No distension. No mass. Left lower quadrant> suprapubic and left upper quadrant and epigastric. Mild right upper quadrant tenderness. Not much right lower quadrant tenderness. No CVA tenderness. She does have rebound when palpating the left abdomen with no guarding or other peritoneal signs. No rash. No shingles. Musculoskeletal: RUE: Normal range of motion. No tenderness. No deformity LUE: Normal range of motion. No tenderness. No deformity wears a lymphedema sleeve RLE: Normal range of motion. No tenderness. No deformity LLE: Normal range of motion. No tenderness. No deformity Neurological: Alert and oriented to person, place, and time. Normal strength. CN II-VII intact. No sensory deficit. GCS eye subscore is 4. GCS verbal subscore is 5. GCS motor subscore is 6. Normal coordination Skin: Skin is warm and dry. No rash noted. No pallor. Normal capillary refill. Psychiatric: Normal mood. Normal affect. Politely declines offered pain meds for now. Const: Vital Signs, click to edit/add: Vital Signs - 24 hr 03/23/23 10:31 03/23/23 16:02 Temperature 98.1 F 97.9 F Pulse Rate [Right Femoral] 70 88 Respiratory Rate 18 16 Blood Pressure [Ri ght Upper Arm] 132/83 152/68 H Pulse Oximetry 99 96 Oxygen Delivery Me thod Room Air Course Course ED Course: Recheck-stable. Still politely declines offered pain meds for Vital Signs Vital signs: Initial Vital Signs Temperature 98.1 F 03/23/23 10:31 Temperature Source Temporal Artery Scan 03/23/23 10:31 Pulse Rate 70 03/23/23 10:31 Respiratory Rate 18 03/23/23 10:31 Blood Pressure 132/83 03/23/23 10:31 Blood Pressure Mean 99 03/23/23 10:31 Blood Pressure Position Sitting 03/23/23 10:31 Pulse Oximetry 99 03/23/23 10:31 Oxygen Delivery Method Room Air 03/23/23 10:31 Vital Signs Temperature 98.1 F 03/23/23 10:31 Pulse Rate 70 03/23/23 10:31 Respiratory Rate 18 03/23/23 10:31 Blood Pressure 132/83 03/23/23 10:31 Pulse Oximetry 99 03/23/23 10:31 Oxygen Delivery Method Room Air 03/23/23 10:31 Temperature 97.9 F 03/23/23 16:02 Pulse Rate 88 03/23/23 16:02 Respiratory Rate 16 03/23/23 16:02 Blood Pressure 152/68 H 03/23/23 16:02 Pulse Oximetry 96 03/23/23 16:02 Oxygen Delivery Method Room Air 03/23/23 10:31 Medical Decision Making MDM Narrative Medical decision making narrative: Presented to the Emergency Department with left lower quadrant and left-sided abdominal pain associated with dark colored/black diarrhea for the past couple of days.. The differential diagnosis of abdominal pain includes: Appendicitis, Bowel Obstruction, Ulcer, Ischemia, Cholecystitis, Diverticulitis, Pancreatitis, UTI, kidney stone, Enteritis/Colitis, amongst many other etiologies. Laboratory testing does not reveal a cause for the patient's pain. Imaging is noted to be normal. The exact etiology of the abdominal pain is not clear at this time. In terms of the diarrhea, cause is unclear. With stable hemoglobins, doubt that this truly represents melena. Although cannot completely rule out upper GI bleed. She is not having any symptoms of lightheadedness and hemoglobin stable spiraling he needs to be admitted for hemoglobin monitoring or transfusion. Differential would also include C diff for other infections. She was recently in the hospital to get an operation for her lymphedema, about 6 weeks ago. No life threatening cause or need for emergent surgery or hospital admission is detected today. The patient was advised that if symptoms do not completely resolve within another 24 hours re-evaluation with primary care or return to the ED is indicated. She can follow up outpatient with her doctor for stool testing/C diff. The patient also understands that if they worsen, they should return to the ER right away. I discussed the uncertainty about the diagnosis and answered the patient's questions. Abdominal pain return precautions discussed. Lab Data Labs: Lab Results 03/23/23 03/23/23 03/23/23 Range/Units 08:30 11:37 12:35 WBC 5.54 (4.50-11.00) K/uL RBC 3.71 L (4.00-5.20) m/uL Hgb 12.5 (12.0-16.0) gm/dL Hct 37.5 (33.0-51.0) % MCV 101 H (80-100) fL MCH 34 (26-34) pg MCHC 33 (32-36) gm/dL RDW Coeff of Farhan 12.9 (11.5-15.5) % Plt Count 217 (140-440) K/uL Neut % (Auto) 68.1 (42.0-72.0) % Lymph % (Auto) 21.1 (20-44) % Pepin % (Auto) 8.8 (0.0-11.0) % Eos % (Auto) 0.9 (0.0-7.0) % Baso % (Auto) 0.9 (0.0-3.0) % Neut # (Auto) 3.77 (1.7-7.0) K/uL Lymph # (Auto) 1.17 (0.90-2.90) K/uL Pepin # (Auto) 0.50 (0.00-0.90) K/UL Eos # (Auto) 0.05 (0.00-0.50) K/uL Baso # (Auto) 0.05 (0.00-0.30) K/uL Abs Immat Gran (auto) 0.01 (0.00-0.30) K/uL Imm/Tot Granulo (auto) 0.2 % Lactate 1.0 (0.5-1.9) mmol/L Lipase 106 (23-300) U/L Urine Color Yellow (Yellow) Urine Appearance Clear (Clear) Urine pH 5.5 (5.0-8.5) Ur Specific [place] 1.015 (1.000-1.030) Urine Protein Negative (Negative) Urine Glucose (UA) Negative (Negative) Urine Ketones Negative (Negative) Urine Blood Trace-lysed A (Negative) Urine Nitrite Negative (Negative) Urine Bilirubin Negative (Negative) Urine Urobilinogen 0.2 (0.2-1.0) Ur Leukocyte Esterase Negative (Negative) Urine RBC 0-2 (0-2) Urine WBC 0-2 (0-5) Ur Squamous Epith Cells Few (None-Few) Urine Bacteria Few A (None) Blood Type O Positive Antibody Screen NEGATIVE Discharge Plan Discharge Clinical Impression: Abdominal pain, LLQ, Diarrhea Patient Disposition: Home, Self-Care Condition: Stable Instructions: Acute Diarrhea (ED), Abdominal Pain (ED) Additional Instructions: As we discussed, please return to the ER right away if you have any worsening symptoms such as worsening pain, fever, uncontrolled diarrhea, bloody stools, weakness or lightheadedness, or if you have any other problems. Please recheck with your regular doctor within the next 2-3 days. Prescriptions: No Action ondansetron 4 mg tablet,disintegrating 4 mg PO Q8H PRN acetaminophen [Tylenol Extra Strength] 500 mg tablet 1,000 mg PO Q6H PRN Zyrtec 10 mg capsule 10 mg PO QDAY PRN levothyroxine 75 mcg tablet 75 mcg PO QDAY cholecalciferol (vitamin D3) 50 mcg (2,000 unit) capsule 50 mcg PO QDAY Florify tablet .Route DAILY Rx Instructions: Melaleuca, daily probiotic cranberry 400 mg capsule 400 mg PO QDAY Rx Instructions: administer with a meal Hair/Skin/Nails Not Applicable DAILY PRN Patient Comments: Melaleuca loperamide [Imodium A-D] 2 mg tablet 2 - 8 mg PO Q6H PRN tamoxifen 20 mg tablet 20 mg PO QDAY Qty: 100 3RF abemaciclib 150 mg tablet 150 mg PO DIRECTED Qty: 42 1RF Rx Instructions: Take 1 tablet once a day alternating with 1 tablet twice daily, every other day. Follow Up/Referrals: Linda Velez PA-C [Primary Care Provider] - Stand Alone Forms: [facility] Info Instructions
--- NOTE | 2023-03-23 11:14 | CRLHL7_ITS ---
For Patients: As a result of the Century Cures Act, medical imaging exams and procedure reports are released immediately into your electronic medical record. You may view this report before your referring provider. If you have questions, please contact your health care provider. INDICATION: Left lower quadrant pain. Black diarrhea. TECHNIQUE: CT abdomen and pelvis acquired with 95 cc Isovue 370 IV contrast. COMPARISON: None. FINDINGS: Lower chest: Scattered atelectasis. Liver: Hepatic steatosis. No suspicious masses. Gallbladder and bile ducts: Unremarkable. No stones or inflammation. No biliary dilatation. Pancreas: Unremarkable. No mass or inflammation. Spleen: Unremarkable. Normal in size. No masses. Adrenal glands: Unremarkable. No nodules. Kidneys: Bilateral simple renal cysts. Additional tiny hypodensities, too small to characterize. No suspicious masses, stones, or hydronephrosis. GI tract: [id number] colonic stool burden. Normal in caliber. No sign of mass or inflammation. Normal appendix. Vasculature: Abdominal aorta is normal in caliber. Mesenteric arteries are patent. Lymph nodes: No lymphadenopathy. Peritoneum/Abdominal Wall: Tiny fat containing umbilical hernia. No sign of mass or infiltration. No free air or significant free fluid. Pelvis: Hysterectomy. Mildly distended bladder with circumferential wall thickening. Recommend correlation with urinalysis if UTI is suspected. Bones: Unremarkable for age. IMPRESSION: No acute intra-abdominal/pelvic abnormality. Consider endoscopy/colonoscopy if symptomatology persists. Mild to moderate colonic stool burden. Hepatic steatosis. Please note that all CT scans at this facility use dose modulation, iterative reconstruction, and/or weight-based dosing when appropriate to reduce radiation dose to as low as reasonably achievable. Dictated by Merlin Quinn MD @ 03/23/2023 3:23:01 PM (Electronically Signed)
[2023-03-23 11:59] LABS: Appearance Urine Clear (Clear); Bilirubin Urine Negative (Negative); Blood Urine Trace-lysed (Negative); Color Urine Yellow (Yellow); Glucose Urine Negative (Negative); Ketones Urine Negative (Negative); Leukocyte Esterase Urine Negative (Negative); Nitrite Urine Negative (Negative); Protein Urine Negative (Negative); Specific Gravity Urine 1.015 (1.000-1.030); Urobilinogen Urine 0.2 (0.2-1.0); pH Urine 5.5 (5.0-8.5)
[2023-03-23 12:03] LABS: Bacteria Urine Few; RBC Urine 0-2 (0-2); Squamous Epithelial Cell Urine Few (None-Few); WBC Urine 0-2 (0-5)
--- OUTSIDE RECORDS SUMMARY | 2023-03-23 12:18 | XMS_ITS | Continuity of Care Document ---
Author Name Unknown Organization [facility] Address [address] [place] [address] Phone Care Team Providers Care Lead Android Developer Name Role Phone Gabrielle Rodriguez MD Unavailable [...] EST Phone Office/Outpatient Visit,New, Mod 2022 Office/Outpatient Visit,[facility], Mod 2018 X-Ray Exam Of Spine, [...] EST Phone [facility], [address], [place], [place], [id number] , [place] tel: [phone] [facility] No Information 3 Michael Anthony. [facility] [place], [address] [place] [address], [address], [place], [address], [place]. tel: [phone] Referring Provider: Lorenzo Dc, [facility] [address] [place] [address], [address], [place], [address]. tel:[phone] Office/Outpa tient Visit,New, Mod [facility], [address], [place], [place], [id number] , [place] tel:[phone] [facility] Spinal stenosis, lumbar region with neurogenic claudication 3 Michael Anthony. [facility], [address] [place] [address], [address], [place], [address], [place]. [phone] Referring Provider: Lorenzo Dc, [facility] [address], [address], [place], [address]. tel:[phone] Office/Outpa tient Visit,Est, Mod [facility], [address], [place], [place], [id number] , [place] tel: [phone] [facility] Encounter for follow-up examination after completed treatment for conditions other than malignant neoplasmSpinal stenosis, lumbar region with neurogenic claudication 9 Dcebony Alcazar er. [facility] [place], [address], [address], [place], [place], [id number] , [place]. tel: [phone] Referring Provider: Lorenzo Dc, [facility] [address] [place], [address], [place], [address]. tel:[phone] Office/Outpa tient Visit,Est, Mod [facility], [address], [place], [place], [id number] , [place] tel: [phone] [facility] Encounter for other specified surgical aftercare 9 Dcebony Alcazar er. [facility], [address] [place] [address], [address], [facility] [place], [id number] , [place]. tel:[phone] Referring Provider: Rachelle Canela [facility] [address] [place], [address]. tel:[phone] Office/Outpa tient Visit,Est, Mod [facility], [address], [place], [place], [id number] , [place] tel: [phone] [facility] Encounter for other specified surgical aftercare 8 Dao Alcazar er. [facility], [address], [address], [place], [place], [id number] , [place]. tel:[phone] Referring Provider: Rachelle Canela [facility] [address] [place], [address]. [phone] Office/Outpa tient Visit,Est, Mod [facility], [address], [place], [place], [id number] , [place] tel: [phone] [facility] Encounter for other specified surgical aftercare Dao zapata. [facility] [place], [address], [address], [place], [place], [id number] , [place]. tel: [phone] Referring Provider: Rachelle Canela [facility] [address] [place], [address]. tel:[phone] [facility], [address], [place], [place], [id number] , [place] tel: [phone] [facility] Encounter for other specified surgical aftercare Dao zapata. [facility], [address] [place] [address], [address], [place], [place], [id number] , [place]. tel: [phone] Referring Provider: Rachelle Canela [facility] [address] [place], [address]. tel:[phone] [facility], [address], [place], [place], [id number] , [place] tel: [phone] [facility] No Information Dao zapata. [facility], [address], [address], [place], [place], [id number] , [place]. tel: [phone] Referring Provider: Rachelle Canela [facility] [address] [place], [address]. tel:[phone] Office/Outpa tient Visit,Est, Mod [facility], [address], [place], [place], [id number] , [place] tel: [phone] [facility] Spinal stenosis, cervical region Dao zapata. [facility] [place], [address] [place] [address], [address], [place], [place], [id number] , [place]. tel:[phone] Referring Provider: Rachelle Canela [facility] [address] [place], [address]. tel:[phone] Office/Outpa tient Visit,Est, Mod [facility], [address], [place], [id number] , [place] [phone] [facility] Spinal stenosis, cervical regionCervical disc disorder at C5-C6 level with myelopathy 7 Dao zapata. [facility] [place], [address], [address], [place], [id number] , [place]. [phone] Referring Provider: Rachelle Canela [facility] [address] [place], [address]. tel:[phone] Office/Outpa tient Visit,New, Mod [facility], [address], [place], [id number] , [place] tel:[phone] [facility] Spinal stenosis, cervical regionCervical disc disorder at C5-C6 level with myelopathy 7 Riki Hodges. [facility] [place], [address] [place] [address] [address], [place], [id number] , [place]. tel:[phone] Referring Provider: Rachelle Canela [facility] [address] [place], [address]. tel:[phone] Family History Family Member Type Diagnosis Age At Onset No Information Payers Payer name Insurance type Covered democrat ID Authoramanda hubbard(s) BS [id number] [facility] [id number] Social History Type Description Quantity Date Captured [...]
[2023-03-23 12:33] LABS: Lipase* 106 U/L (23-300)
[2023-03-23 12:50] LABS: Basophils Absolute Auto 0.05 K/uL (0.00-0.30); Basophils Percent Auto 0.9 % (0.0-3.0); Eosinophils Absolute Auto 0.05 K/uL (0.00-0.50); Eosinophils Percent Auto 0.9 % (0.0-7.0); Hematocrit 37.5 % (33.0-51.0); Hemoglobin* 12.5 gm/dL (12.0-16.0); Immature Granulocytes Abs Auto 0.01 K/uL (0.00-0.30); Immature Granulocytes Pct Auto 0.2 %; Lymphocytes Absolute Auto 1.17 K/uL (0.90-2.90); Lymphocytes Percent Auto 21.1 % (20-44); Mean Corpuscular HGB Conc 33 gm/dL (32-36); Mean Corpuscular Hemoglobin 34 pg (26-34); Mean Corpuscular Volume 101 fL (80-100); Monocytes Percent Auto 8.8 % (0.0-11.0); Neutrophils Absolute Auto 3.77 K/uL (1.7-7.0); Neutrophils Percent Auto 68.1 % (42.0-72.0); Platelet Count* 217 K/uL (140-440); RDW Coefficient of Variation % 12.9 % (11.5-15.5); Red Blood Count 3.71 m/uL (4.00-5.20); White Blood Count* 5.54 K/uL (4.50-11.00)
[2023-03-23 12:52] LABS: Slide Review Reflex No
[2023-03-23 16:02] VITALS: BP 152/68; PULSE 88; RESP 16; TEMP 36.6; O2SAT 96
== END 2023-03-23 16:03 | disposition home or self-care (01) ==
PROVIDERS: Emergency Provider Emergency Medicine; PCP Physician Assistant
DX: R10.31 Right lower quadrant pain (principal); R19.7 Diarrhea, unspecified
CPT/HCPCS: 36415; 74177; 81001; 82270; 83605; 83690; 85025; 86850; 86900; 86901; 87045; 87046; 87086; 87427; 87493; 99284; 99285; Q9967

== ENCOUNTER 2023-05-21 07:45 | Outpatient (RCR) | payer BC, SELFPAY ==
[2022-12-29 08:14] LABS: Basophils Absolute Auto 0.04 K/uL (0.00-0.30); Basophils Percent Auto 0.7 % (0.0-3.0); Eosinophils Absolute Auto 0.08 K/uL (0.00-0.50); Eosinophils Percent Auto 1.5 % (0.0-7.0); Hematocrit 37.2 % (33.0-51.0); Hemoglobin* 12.2 gm/dL (12.0-16.0); Immature Granulocytes Abs Auto 0.02 K/uL (0.00-0.30); Immature Granulocytes Pct Auto 0.4 %; Lymphocytes Absolute Auto 1.14 K/uL (0.90-2.90); Lymphocytes Percent Auto 21.2 % (20-44); Mean Corpuscular HGB Conc 33 gm/dL (32-36); Mean Corpuscular Hemoglobin 33 pg (26-34); Mean Corpuscular Volume 100 fL (80-100); Monocytes Percent Auto 7.6 % (0.0-11.0); Neutrophils Percent Auto 68.6 % (42.0-72.0); Platelet Count* 220 K/uL (140-440); RDW Coefficient of Variation % 12.9 % (11.5-15.5); Red Blood Count 3.72 m/uL (4.00-5.20); White Blood Count* 5.39 K/uL (4.50-11.00)
[2022-12-29 08:20] LABS: Slide Review Reflex No
[2022-12-29 08:36] LABS: Chloride* 106 mmol/L (96-114)
[2022-12-29 08:37] LABS: Albumin* 3.5 g/dL (3.3-5.0); Potassium* 4.3 mmol/L (3.6-5.1); Sodium* 140 mmol/L (135-149)
[2022-12-29 08:40] LABS: Alanine Aminotransferase* 17 U/L (4-35); Alkaline Phosphatase* 44 U/L (40-150); Aspartate Amino Transferase* 20 U/L (12-35); Bilirubin Total* 0.2 mg/dL (0.1-1.5); Blood Urea Nitrogen* 14 mg/dL (7-30); Carbon Dioxide* 29 mmol/L (20-32); Estimated Glomerular Filt Rate 67 ml/min; Glucose* 93 mg/dL (60-115); Total Protein* 6.6 g/dL (6.0-8.3)
[2022-12-29 08:41] LABS: Calcium* 9.1 mg/dL (8.4-10.6)
[2022-12-30 19:52] LABS: Follicle Stimulating Hormone 34.3 IU/L; Luteinizing Hormone 20.2 IU/L
[2022-12-30 21:43] LABS: Estradiol Premenol Female 40 pg/mL
[2023-01-26 08:03] LABS: Basophils Absolute Auto 0.04 K/uL (0.00-0.30); Basophils Percent Auto 0.8 % (0.0-3.0); Eosinophils Absolute Auto 0.05 K/uL (0.00-0.50); Hematocrit 35.7 % (33.0-51.0); Hemoglobin* 11.9 gm/dL (12.0-16.0); Immature Granulocytes Abs Auto 0.06 K/uL (0.00-0.30); Immature Granulocytes Pct Auto 1.3 %; Lymphocytes Percent Auto 19.4 % (20-44); Mean Corpuscular HGB Conc 33 gm/dL (32-36); Mean Corpuscular Hemoglobin 33 pg (26-34); Mean Corpuscular Volume 100 fL (80-100); Monocytes Percent Auto 9.4 % (0.0-11.0); Neutrophils Absolute Auto 3.26 K/uL (1.7-7.0); Neutrophils Percent Auto 68.1 % (42.0-72.0); Platelet Count* 207 K/uL (140-440); RDW Coefficient of Variation % 13.2 % (11.5-15.5); Red Blood Count 3.57 m/uL (4.00-5.20); White Blood Count* 4.79 K/uL (4.50-11.00)
[2023-01-26 08:16] LABS: Albumin* 3.5 g/dL (3.3-5.0); Chloride* 109 mmol/L (96-114); Sodium* 138 mmol/L (135-149)
[2023-01-26 08:17] LABS: Potassium* 3.7 mmol/L (3.6-5.1)
[2023-01-26 08:19] LABS: Alkaline Phosphatase* 43 U/L (40-150); Anion Gap 5 mEq/L (7-15); Aspartate Amino Transferase* 25 U/L (12-35); Bilirubin Total* 0.3 mg/dL (0.1-1.5); Blood Urea Nitrogen* 14 mg/dL (7-30); Carbon Dioxide* 24 mmol/L (20-32); Creatinine* 0.8 mg/dL (0.5-1.5); Estimated Glomerular Filt Rate 88 ml/min; Total Protein* 6.5 g/dL (6.0-8.3)
[2023-01-26 08:20] LABS: Alanine Aminotransferase* 20 U/L (4-35); Calcium* 9.2 mg/dL (8.4-10.6); Glucose* 129 mg/dL (60-115); Slide Review Reflex No
[2023-02-24 08:32] LABS: Basophils Absolute Auto 0.04 K/uL (0.00-0.30); Basophils Percent Auto 0.9 % (0.0-3.0); Eosinophils Absolute Auto 0.07 K/uL (0.00-0.50); Eosinophils Percent Auto 1.5 % (0.0-7.0); Hematocrit 36.8 % (33.0-51.0); Hemoglobin* 12.3 gm/dL (12.0-16.0); Immature Granulocytes Abs Auto 0.02 K/uL (0.00-0.30); Immature Granulocytes Pct Auto 0.4 %; Lymphocytes Absolute Auto 1.16 K/uL (0.90-2.90); Lymphocytes Percent Auto 25.2 % (20-44); Mean Corpuscular HGB Conc 33 gm/dL (32-36); Mean Corpuscular Hemoglobin 34 pg (26-34); Mean Corpuscular Volume 101 fL (80-100); Monocytes Percent Auto 7.6 % (0.0-11.0); Neutrophils Absolute Auto 2.97 K/uL (1.7-7.0); Neutrophils Percent Auto 64.4 % (42.0-72.0); Platelet Count* 224 K/uL (140-440); Red Blood Count 3.64 m/uL (4.00-5.20); White Blood Count* 4.61 K/uL (4.50-11.00)
[2023-02-24 08:34] LABS: Slide Review Reflex No
[2023-02-24 08:44] LABS: Albumin* 3.6 g/dL (3.3-5.0); Chloride* 108 mmol/L (96-114); Sodium* 139 mmol/L (135-149)
[2023-02-24 08:45] LABS: Potassium* 4.2 mmol/L (3.6-5.1)
[2023-02-24 08:47] LABS: Alanine Aminotransferase* 16 U/L (4-35); Alkaline Phosphatase* 50 U/L (40-150); Anion Gap 8 mEq/L (7-15); Aspartate Amino Transferase* 22 U/L (12-35); Bilirubin Total* 0.3 mg/dL (0.1-1.5); Blood Urea Nitrogen* 14 mg/dL (7-30); Calcium* 8.9 mg/dL (8.4-10.6); Carbon Dioxide* 23 mmol/L (20-32); Creatinine* 0.9 mg/dL (0.5-1.5); Estimated Glomerular Filt Rate 76 ml/min; Glucose* 88 mg/dL (60-115); Total Protein* 6.6 g/dL (6.0-8.3)
[2023-02-24] MEDS: ZOLEDRONIC ACID 3 MG in 0.9 % SODIUM CHLORIDE 100 ml 100 ML 420 MG IVPB (09:49)
[2023-02-24] MEDS: SODIUM CHLORIDE 0.9 % (FLUSH) 10 ML SYRINGE IVF (10:00)
[2023-02-24] MEDS: 0.9 % SODIUM CHLORIDE 250 ml IV (10:00)
[2023-02-24 10:35] LABS: Appearance Urine Clear (Clear); Bilirubin Urine Negative (Negative); Blood Urine Negative (Negative); Color Urine Yellow (Yellow); Glucose Urine Negative (Negative); Ketones Urine Negative (Negative); Leukocyte Esterase Urine Negative (Negative); Nitrite Urine Negative (Negative); Protein Urine Negative (Negative); Specific Gravity Urine 1.025 (1.000-1.030); Urobilinogen Urine 0.2 (0.2-1.0); pH Urine 5.5 (5.0-8.5)
[2023-02-24 11:33] LABS: RBC Urine 0-2 (0-2); WBC Urine 0-2 (0-5)
[2023-02-24 11:34] LABS: Bacteria Urine Few; Mucus Urine Few; Squamous Epithelial Cell Urine Few (None-Few)
[2023-03-23 08:42] LABS: Basophils Absolute Auto 0.04 K/uL (0.00-0.30); Basophils Percent Auto 0.8 % (0.0-3.0); Eosinophils Absolute Auto 0.08 K/uL (0.00-0.50); Eosinophils Percent Auto 1.7 % (0.0-7.0); Hematocrit 36.2 % (33.0-51.0); Immature Granulocytes Abs Auto 0.02 K/uL (0.00-0.30); Immature Granulocytes Pct Auto 0.4 %; Lymphocytes Absolute Auto 1.08 K/uL (0.90-2.90); Lymphocytes Percent Auto 22.8 % (20-44); Mean Corpuscular HGB Conc 33 gm/dL (32-36); Mean Corpuscular Hemoglobin 34 pg (26-34); Mean Corpuscular Volume 101 fL (80-100); Monocytes Percent Auto 9.9 % (0.0-11.0); Neutrophils Absolute Auto 3.04 K/uL (1.7-7.0); Neutrophils Percent Auto 64.4 % (42.0-72.0); Platelet Count* 220 K/uL (140-440); RDW Coefficient of Variation % 12.9 % (11.5-15.5); Red Blood Count 3.58 m/uL (4.00-5.20); White Blood Count* 4.73 K/uL (4.50-11.00)
[2023-03-23 08:44] LABS: Slide Review Reflex No
[2023-03-23 08:55] LABS: Chloride* 109 mmol/L (96-114)
[2023-03-23 08:56] LABS: Albumin* 3.7 g/dL (3.3-5.0); Potassium* 4.2 mmol/L (3.6-5.1); Sodium* 137 mmol/L (135-149)
[2023-03-23 08:59] LABS: Alanine Aminotransferase* 17 U/L (4-35); Alkaline Phosphatase* 53 U/L (40-150); Anion Gap 6 mEq/L (7-15); Aspartate Amino Transferase* 29 U/L (12-35); Bilirubin Total* 0.2 mg/dL (0.1-1.5); Blood Urea Nitrogen* 17 mg/dL (7-30); Carbon Dioxide* 22 mmol/L (20-32); Creatinine* 0.9 mg/dL (0.5-1.5); Estimated Glomerular Filt Rate 76 ml/min; Glucose* 90 mg/dL (60-115); Total Protein* 6.9 g/dL (6.0-8.3)
[2023-03-23 09:00] LABS: Calcium* 8.7 mg/dL (8.4-10.6)
[2023-04-20 08:51] LABS: Basophils Absolute Auto 0.05 K/uL (0.00-0.30); Basophils Percent Auto 0.9 % (0.0-3.0); Eosinophils Absolute Auto 0.15 K/uL (0.00-0.50); Eosinophils Percent Auto 2.7 % (0.0-7.0); Hematocrit 37.3 % (33.0-51.0); Hemoglobin* 12.2 gm/dL (12.0-16.0); Immature Granulocytes Abs Auto 0.02 K/uL (0.00-0.30); Immature Granulocytes Pct Auto 0.4 %; Lymphocytes Percent Auto 15.4 % (20-44); Mean Corpuscular HGB Conc 33 gm/dL (32-36); Mean Corpuscular Hemoglobin 33 pg (26-34); Mean Corpuscular Volume 102 fL (80-100); Monocytes Percent Auto 8.2 % (0.0-11.0); Neutrophils Percent Auto 72.4 % (42.0-72.0); Platelet Count* 234 K/uL (140-440); Red Blood Count 3.67 m/uL (4.00-5.20); White Blood Count* 5.58 K/uL (4.50-11.00)
[2023-04-20 08:52] LABS: Slide Review Reflex No
[2023-04-20 09:04] LABS: Albumin* 3.9 g/dL (3.3-5.0); Chloride* 109 mmol/L (96-114); Potassium* 3.8 mmol/L (3.6-5.1); Sodium* 138 mmol/L (135-149)
[2023-04-20 09:06] LABS: Creatinine* 0.9 mg/dL (0.5-1.5); Estimated Glomerular Filt Rate 76 ml/min
[2023-04-20 09:07] LABS: Alanine Aminotransferase* 18 U/L (4-35); Alkaline Phosphatase* 42 U/L (40-150); Anion Gap 7 mEq/L (7-15); Aspartate Amino Transferase* 23 U/L (12-35); Bilirubin Total* 0.2 mg/dL (0.1-1.5); Blood Urea Nitrogen* 15 mg/dL (7-30); Carbon Dioxide* 22 mmol/L (20-32); Glucose* 125 mg/dL (60-115); Total Protein* 6.8 g/dL (6.0-8.3)
[2023-04-20 09:08] LABS: Calcium* 8.9 mg/dL (8.4-10.6)
[2023-05-21 08:06] LABS: Basophils Absolute Auto 0.06 K/uL (0.00-0.30); Basophils Percent Auto 1.2 % (0.0-3.0); Eosinophils Absolute Auto 0.14 K/uL (0.00-0.50); Eosinophils Percent Auto 2.7 % (0.0-7.0); Hematocrit 36.6 % (33.0-51.0); Hemoglobin* 12.2 gm/dL (12.0-16.0); Immature Granulocytes Abs Auto 0.04 K/uL (0.00-0.30); Immature Granulocytes Pct Auto 0.8 %; Lymphocytes Absolute Auto 1.05 K/uL (0.90-2.90); Lymphocytes Percent Auto 20.2 % (20-44); Mean Corpuscular HGB Conc 33 gm/dL (32-36); Mean Corpuscular Hemoglobin 34 pg (26-34); Mean Corpuscular Volume 101 fL (80-100); Monocytes Percent Auto 10.4 % (0.0-11.0); Neutrophils Absolute Auto 3.36 K/uL (1.7-7.0); Neutrophils Percent Auto 64.7 % (42.0-72.0); Platelet Count* 213 K/uL (140-440); Red Blood Count 3.64 m/uL (4.00-5.20); White Blood Count* 5.19 K/uL (4.50-11.00)
[2023-05-21 08:16] LABS: Slide Review Reflex No
[2023-05-21 08:17] LABS: Chloride* 110 mmol/L (96-114)
[2023-05-21 08:18] LABS: Albumin* 3.9 g/dL (3.3-5.0); Potassium* 4.1 mmol/L (3.6-5.1); Sodium* 139 mmol/L (135-149)
[2023-05-21 08:21] LABS: Alanine Aminotransferase* 18 U/L (4-35); Alkaline Phosphatase* 52 U/L (40-150); Anion Gap 7 mEq/L (7-15); Aspartate Amino Transferase* 23 U/L (12-35); Bilirubin Total* 0.1 mg/dL (0.1-1.5); Blood Urea Nitrogen* 16 mg/dL (7-30); Carbon Dioxide* 22 mmol/L (20-32); Creatinine* 0.8 mg/dL (0.5-1.5); Estimated Glomerular Filt Rate 88 ml/min; Glucose* 96 mg/dL (60-115); Total Protein* 6.9 g/dL (6.0-8.3)
[2023-05-21 08:22] LABS: Calcium* 8.8 mg/dL (8.4-10.6)
== END 2023-06-27 23:59 | disposition home or self-care (01) ==
LOC: CCIC 07:45
PROVIDERS: Clinical Nurse Specialist; Internal Medicine Hematology & Oncology; PCP Physician Assistant; Referring Provider Physician Assistant; Visit Provider Physician Assistant
DX: C50.912 Malignant neoplasm of unspecified site of left female breast (principal); Z17.0 Estrogen receptor positive status [ER+]; R23.2 Flushing; T45.1X5A Adverse effect of antineoplastic and immunosuppressive drugs, initial encounter; K52.1 Toxic gastroenteritis and colitis; I97.2 Postmastectomy lymphedema syndrome; M54.9 Dorsalgia, unspecified; B35.9 Dermatophytosis, unspecified
CPT/HCPCS: 36415; 80053; 81001; 82670; 83001; 83002; 85025; 87086; 96374; 99212; 99214; 99215; G0463; J3489; J7050

== ENCOUNTER 2023-06-18 16:03 | Outpatient (CLI) | payer BC, SELFPAY ==
--- OUTSIDE RECORDS SUMMARY | 2023-06-19 00:50 | XMS_ITS | Referral Summary ---
Author Name Unknown Organization [facility] Address [address] [place] [address] Care Team Providers Care Hood Fitter Name Role Phone None Reported, Pcp Primary Care Provider Unavail able Source Comments Patient records contain information from all sites at [facility]. For routine questions regarding patient records, call [phone] during business hours, M-F 8:00 AM - 5:00 PM Central Time. Record requests for emergency care only can be directed to [phone] at any time.[facility] Encounters Date Type Department Care Team Description 05/07/2023 Clinical Communication Department of Physical Medicine and Rehabilitation in [place], [place] [address] [place] [address] Jeaneth Llamas, O.Alfredito., T-KATHY from Last 3 Months Allergies Active Allergy Reactions Criticality Noted Date Comments Adhesive Rash,Other (see comments) High 02/03/2022 Adhesive Tape-Silicones Rash Medium 12/19/2016 From EKG patches, Dermatitis/Rash Amoxicillin Hives (Reselect Reaction),Shortness of breath (Reselect Reaction),Anaphylaxi s,Other (see comments) High 11/11/2003 Trouble breathing, rash Ciprofloxacin Rash,Shortness of breath (Reselect Reaction),Other (see comments) High 01/07/2017 Gabapentin Other (see comments) High 01/06/2022 Depression/suicida l ideation Oxybutynin Other (see comments) 11/19/2022 Sulfa (Sulfonamide Antibiotics) Hives (Reselect Reaction),Shortness of breath (Reselect Reaction),Rash,Other (see comments) High 11/11/2003 Trouble breathing, rash Vancomycin Other (see comments),Rash,Anaph ylaxis High 12/19/2016 Suspected drug rash to vancomycin, not certain Medications Medication Sig Dispensed Refills Start Date End Date Status levothyroxine (SYNTHROID, LEVOTHROID) 75 mcg tablet Take 75 mcg by mouth every morning before breakfast. 0 03/19/2021 Active tamoxifen (NOLVADEX) 20 mg tablet Take 20 mg by mouth daily. 0 10/11/2021 Active triamcinolone (KENALOG) 0.1 % cream as needed. 0 09/06/2021 Active L.acid/L.casei/B.bif /B.luís/FOS (PROBIOTIC BLEND ORAL) Take 1 tablet by mouth daily. 0 11/25/2021 Active cholecalciferol (VITAMIN D3) 50 mcg (2,000 Unit) capsule Take 50 mcg by mouth daily. 0 11/25/2021 Active PreviDent 5000 Booster Plus 1.1 % paste dental paste Apply 1 application to the mouth or throat daily. 0 12/02/2021 Active Verzenio 150 mg tablet Take 150 mg by mouth as directed. Alternating days 1 daily with 1 twice daily 0 06/11/2022 Active zkrzwcbv-atz-gpobf acid-biotin (Hair,Skin and Nails,FA-biotin,) 133.3 mcg- 1,666.7 mcg capsule Take 1 capsule by mouth daily. 0 Active cranberry 400 mg capsule Take 400 mg by mouth daily. 0 02/18/2022 Active loperamide (IMODIUM A-D) 2 mg capsule Take 2 mg by mouth as needed for diarrhea. 0 Active acetaminophen (TYLENOL) 500 mg tablet Take 2 tablets (1,000 mg total) by mouth every 6 (six) hours as needed for pain. 0 02/10/2023 Active ibuprofen (ADVIL,MOTRIN) 200 mg tablet Take 2 tablets (400 mg total) by mouth every 6 (six) hours as needed for pain. 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 Spine Status Post 01/28/2023 Polyneuropathy Due To Drug 01/28/2023 Lymphedema Post Mastectomy 07/04/2022 Overview: Added automatically from request for surgery [id number] Added automatically from request for surgery [id number] Malignant Neoplasm Of Breast Upper Outer Quadrant Female Left 10/23/2021 Cancer Staging:Pathologic stage from 04/25/2021:Stage IIB(pT2, pN2a, cM0, G3, ER+, TX+, HER2-) - Unsigned Other Cervical Disc Displace ment Unspecified Cervical Region 12/10/2016 Hypothyroidism 08/05/2010 Meniere's Disease Right 08/05/2010 Resolved Problems Problem Noted Date Diagnosed Date Resolved Date Quadriplegia 08/16/2021 01/28/2023 Immunizations Name Administration Dates Next Due Influenza TIV (IM) 01/24/2009,04/05/2007 Influenza, Seasonal, Injectable 01/24/2009,04/05 Influenza, Unspecified 05/05/2022 RZV (SHINGRIX) 05/07/2021,03/07/2021 Td (Adult), adsorbed 06/11/2004,02/14/1994 Tdap 12/02/2016 influenza vaccine QV(FLUBLOK ) (18 years or older) (PF) 04/06/2020 influenza vaccine quad (FLUZONE/FLUARIX) (6 months and older)(PF) 04/06/2020,04/09/2018,03/14/2015,2008,04/05/2007 Social History Tobacco Use Types Packs/Day Years Used Date Smoking Tobacco: Never Smokeless Tobacco: Never Tobacco Cessation:Counseling Given: Not Answered Alcohol Use Standard Drinks/Week Comments Not Currently 0 (1 standard drink = 0.6 oz pure alcohol) Quit @ age 24. Alcoholism runs in family. I didn't have it. Humiliation, Afraid, Rape, and Kick questionnair e Answer Date Recorded Within the last year, have y ou been afraid of your partner or ex-partner? No 06/29/2022 Within the last year, have y ou been humiliated or emotionally abused in other ways by your partner or ex-partner? No Within the last year, have y ou been kicked, hit, slapped, or otherwise physically hurt by your partner or ex-partner? No 06/29/2022 Within the last year, have y ou been raped or forced to have any kind of sexual activity by your partner or ex-partner? No 06/29/2022 Social Connection and Isolat ion Panel [NHANES] Answer Date Recorded In a typical week, how many times do you talk on the phone with family, friends, or neighbors? More than three times a week 06/29/2022 How often do you get togethe r with friends or relatives? Once a week 06/29/2022 How often do you attend chur or presybeterian services? More than 4 times per year 06/29/2022 Do you belong to any clubs o r organizations such as rastafarian groups, unions, fraternal or athletic groups, or school groups? Yes 06/29/2022 How often do you attend meet ings of the clubs or organizations you belong to? More than 4 times per year 06/29/2022 Are you , , di vorced, , never , or living with a partner? 06/29/2022 AUDIT-C Answer Date Recorded Q1: How often do you have a drink containing alc ohol? Never 06/29/2022 Average Number of Drinks Not on file 023 Frequency of Binge Drinking Not on file 06/18 Overall Financial Resource Strain (CARDIA) Answe r Date Recorded How hard is it for you to pa y for the very basics like food, housing, medical care, and heating? Not hard at all 06/29/2022 PHQ-2 Answer Date Recorded PHQ-2 Score 2 08/13/2022 [facility] of Occupat ional Health - Occupational Stress Questionnaire Answer Date Recorded Do you feel stress - tense, restless, nervous, or anxious, or unable to sleep at night because your mind is troubled all the time - these days? Not at all 06/29/2022 Exercise Vital Sign Answer Date Recorde d On average, how many days pe r week do you engage in moderate to strenuous exercise (like a brisk walk)? 5 days 06/29/2022 On average, how many minutes do you engage in exercise at this level? 30 min 06/29/2022 Hunger Vital Sign Answer Date Recorded Within the past 12 months, y ou worried that your food would run out before you got the money to buy more. Never true 06/29/19 23 Within the past 12 months, t he food you bought just didn't last and you didn't have money to get more. Never true 06/29/2022 PRAPARE - Transportation Answer Date Re corded In the past 12 months, has l ack of transportation kept you from medical appointments or from getting medications? No 06/18 In the past 12 months, has l ack of transportation kept you from meetings, work, or from getting things needed for daily living? No 06/29/2022 Housing Stability Vital Sign Answer Guero e Recorded In the last 12 months, was t here a time when you were not able to pay the mortgage or rent on time? No 06/29/2022 In the last 12 months, how many places have you lived? 1 06/29/2022 In the last 12 months, was t here a time when you did not have a steady place to sleep or slept in a prison (including now)? No 06/29/2022 Depression Answer Date Recor ded PHQ-9 Total Score (max 27) 12 08/13 Nutrition Answer Date Recorded Nutrition: EVOO Fat Source Yes 06/29 On average, how many serving s of fruits and vegetables do you eat per day (serving size is equal to 1 cup or approximately the size of a tennis ball)? 2-3 06/29/2022 Dental Answer Date Recorded Dental: Regular Dentist Yes 11/01/19 Employment Answer Date Recorded Employment status Employed and actively working without restrictions 06/29/2022 Education Answer Date Recorded What is the highest level of school you have completed or the highest degree you have received? Bachelor's degree (e.g., BA, AB, BS) 10/31/2021 Sex and Gender Information Value Date Recorded Sex Assigned at Female 10/31/2021 2:05 PM CDT Gender Identity Female 10/31/2021 2:05 PM CDT Sexual Orientation Straight 10/31/2021 2: 05 PM CDT Last Filed Vital Signs Vital Sign Reading Time Taken Comments Blood Pressure 121/57 02/10/2023 8:31 AM CDT Pulse 86 02/10/2023 8:31 AM CDT Temperature 36.6 ??C (97.9 ??F) 02/10/2023 8:31 AM CD T Respiratory Rate 18 02/10/2023 8:31 AM CDT Oxygen Saturation 100% 02/10/2023 8:31 AM CDT Inhaled Oxygen Concentration - - Weight 86.4 kg (190 lb 7.6 oz) 02/09/2023 7:10 A M CDT Height 162 cm (5' 3.78) 02/09/2023 7:10 AM CDT Body Mass Index 32.92 02/09/2023 7:10 AM CDT Plan of Treatment Not on file Medical Devices Implanted Type Area Tip Fixer Device Identifier Shelf Expiration Date Model / Serial / Lot Hardware E.G. Pins/Screws/R ods Hardware e.g. pins/screws/ rods Mouth Description:Dental implants Clp Hrzn Ti 6 Clp Sm Red - [id number] Implanted:Qty : 1 on 11/12/2021 by Jennifer Berger D.O. at [facility] Hardware e.g. pins/screws/ rods [employer] [id number] 06/03/2026 [id number] / / [id number] Clp [place] Ti Spr Mcr 1.5 - [id number] Implanted:Qty : 1 on 02/09/2023 by Eber Saravia M.D. at [facility] Hardware e.g. pins/screws/ rods [employer] [id number] / / Imaging Marker Imaging Marker Breast Additional Health Concerns Infection Onset Date Last Indicated Protective Environment 09/04/2022 3 Advance Directives For more information, please contact: [phone] Latest Code Status on File Code Status Date Activated Date Inactivated Comments Full Code 11/12/2021 7:28 AM 11/12/2021 9:42 PM Question Answer Comments Full Code: Not Discussed Due to: Not medically appropriate Care Teams Hood Fitter Relationship Specialty Start Date End Date None Reported, Pcp PCP - General Family Medicine 02/09/23
--- OUTSIDE RECORDS SUMMARY | 2023-06-19 00:50 | XMS_ITS | Encounter Summary ---
Author Name Unknown Organization [facility] Address [address] [place] [address] Care Team Providers Care Inpatient Care Manager Rn Name Role Phone None Reported, Pcp Primary Care Provider Unavail able Encounter Details Date Type Department Care Team (Latest Contact Info) Description 03/11/2023 12:00 PM CDT Ancillary Procedure Department of Plastic and Reconstructive Surgery Social History Tobacco Use Types Packs/Day Years Used Date Smoking Tobacco: Never Smokeless Tobacco: Never Alcohol Use Standard Drinks/Week Comments Not Currently [...] 06/29/2022 How often do you attend chur ch or anabaptism services? More than 4 times per year 06/29/2022 Do you belong to any clubs o r organizations such as religion groups, unions, fraternal [...] Answer Date Recorded PHQ-2 Score 2 08/13/2022 [facility] Occupat ional [facility] - Occupational Stress Questionnaire Answer Date Recorded [...] slept in a nursing home (including now)? No 06/29/2022 Depression Answer Date [...] Orientation Straight 10/31/2021 2: 05 PM CDT documented as of this encounter Plan of Treatment Not on file documented as of this encounter Procedures Procedure Name Priority Date/Time Associated Diagnosis Comments PLASTIC AND RECON SURGERY IMAGE EXAM Routine 03/11/2023 12:00 PM CDT documented in this encounter Results * Arms Lymphaticovenous Bypass-Plastic And Recon Surgery Image Exam (03/11/2023 12:00 PM CDT) 03/11/2023 12:0 0 PM CDT Narrative IIMS - 03/11/2023 3:55 PM CDT This order has been created and auto-finalized to support the import of images acquired without order. The clinical documentation to support these images can be found on the encounter that produced images. Provider Not In System IMG NON RAD IMAGI NG PROCEDURES IIMS NA documented in this encounter Visit Diagnoses Not on filedocumented in this encounter Additional Health Concerns Infection Onset Date Last Indicated Resolved Time Protective Environment 09/04/2022 09/04/2022 Assessment Noted Time PHQ-9 Depression Total Score: 12 023 10:14 AM CDT documented as of this encounter Care Teams Inpatient Care Manager Rn Relationship Specialty Start Date End Date None Reported, Pcp PCP - General Family Medicine 02/09/23 documented as of this encounter
--- OUTSIDE RECORDS SUMMARY | 2023-06-19 00:50 | XMS_ITS ---
Author Name Unknown Organization [facility] Address [address] [place] [address] Care Team Providers Care Stonework Tracer Name Role Phone Unavailable Unavailable Unavailable Surgery Details Not on file Complications Check Surgery Details section. Procedure Estimated Blood Loss Check Surgery Details section. Procedure Findings Check Surgery Details section. Procedure Specimens Taken Check Surgery Details section.
--- OUTSIDE RECORDS SUMMARY | 2023-06-19 00:50 | XMS_ITS | Encounter Summary ---
Author Name Unknown Organization [facility] Address [address] [place] [address] Care Team Providers Care Set Up And Charger Name Role Phone None Reported, Pcp Primary Care Provider Unavail able Reason for Referral * Outpatient (Routine) - Pending Review Specialty Diagnoses / Procedures Referred By Contac t Referred To Contact Diagnoses Lymphedema Post Mastectomy Procedures Minor Misc Procedure Marlen Ruvalcaba APRN, C.N.P., D.N.P. [address] [place] [phone] [facility] Referral ID Status Reason Start Date Expiration Date V isits Requested Visits Authorized [id number] Pending Review 03/12/2023 03/11/2024 1 1 * Outpatient (Routine) - Pending Review Specialty Diagnoses / Procedures Referred By Contac t Referred To Contact Diagnoses Lymphedema Post Mastectomy Procedures Minor Misc Procedure Marlen Ruvalcaba APRN, C.N.P., D.N.P. [address] [place] [phone] [facility] Referral ID Status Reason Start Date Expiration Date V isits Requested Visits Authorized [id number] Pending Review 03/12/2023 03/11/2024 1 1 Reason for Visit * Outpatient (Routine) - Closed Specialty Diagnoses / Procedures Referred By Cassidy gutierrez Referred To Contact Plastic Surgery Diagnoses dx Eber Saravia M.D. [address] [place] [phone] [facility] Referral ID Status Reason Start Date Expiration Date Visits Re quested Visits Authorized [id number] Closed 11/11/2022 11/10/2025 1 1 Encounter Details Date Type Department Care Team (Late st Contact Info) Description 03/11/2023 1:30 PM CDT Office Visit Division of Plastic Surgery in [place], [place] [address] [place] [phone] Marlen Ruvalcaba APRN, C.NEdilma, D.N.P. [address] [place] [phone] Lymphedema Post Mastectomy (Primary Dx) Social History Tobacco Use Types Packs/Day Years [...] How often do you attend chur or uatsdin services? More than 4 times per year 06/29/2022 Do you belong to any clubs o r organizations such as baptism groups, unions, fraternal [...] Answer Date Recorded PHQ-2 Score 2 08/13/2022 [facility] of Occupat ional Health - Occupational Stress [...] or slept in a retirement (including now)? No 06/29/2022 Depression Answer Date [...] documented as of this encounter Progress Notes * Marlen Ruvalcaba APRN, C.N.P., D.N.P. - 03/11/2023 1:30 PM CDT SUBJECTIVE CHIEF COMPLAINT / REASON FOR VISIT Mrs. Joceline Uribe underwent the following procedures on 02/09/[address] Saravia 1. Mapping of superficial lymphatics in left upper extremity using indocyanine green lymphography 2. Mapping of superficial venous system in left upper extremity using infrared vein visualization system 3. Lymphatic reconstruction of left upper extremity with supermicrosurgical lymphaticovenous anastomosis (LVA) with 9 anastomoses created, with 4. Use of high-power surgical microscope 5. Application of layered compression system to left upper extremity Routine postop visit - 1 month PO HISTORY OF PRESENT ILLNESS Mrs. Joceline Uribe is a very pleasant 52 y.o. female who presents today for a routine postop check. She is status post left upper extremity LVA on 02/09/2023. History of left breast cancer, IDC, diagnosed in February 2021 status post lumpectomy in April of 2021, followed by left axillarylymph node dissection and left axillary LVA on 11/12/2021 and left breast completed radiation 02/03/2022. She is now 1 month postop after her recent left upper extremity LVA and reports that the recovery has been going well. She denies pain. She denies systemic or local signs/symptoms of an infection, including fevers, chills, malaise. She continues wearing compression wraps as instructed. She we will see lymphedema clinic this afternoon for follow-up in measurements. She continues with to follow activity restriction and compression wraps as instructed. She has noticed significant improvement in her lymphedema swelling of the left arm since her surgery and very pleased with her surgical outcome. REVIEW OF SYSTEMS Pertinent items noted in HPI. OBJECTIVE PHYSICAL EXAM General: Patient is alert and oriented x 3. She does not appear to be in acute distress. Very pleasant. Accompanied by her . Left upper extremity: Incisions appears clean, dry, and intact with surgical glue. Surgical glue removed with her adhesive removal in clinic today. No erythema or drainage noted. No obvious signs of fluid accumulation, infection, or gross abnormality were noted. ASSESSMENT / PLAN #1 Mrs. Joceline Uribe underwent the following procedures on 02/09/[address] Saravia 1. Mapping of superficial lymphatics in left upper extremity using indocyanine green lymphography 2. Mapping of superficial venous system in left upper extremity using infrared vein visualization system 3. Lymphatic reconstruction of left upper extremity with supermicrosurgical lymphaticovenous anastomosis (LVA) with 9 anastomoses created, with 4. Use of high-power surgical microscope 5. Application of layered compression system to left upper extremity #2 Routine postop visit - 1 month PO It was a pleasure seeing Ms. Joceline Urieb today in the clinic. She is recovering well after her recent surgery. She notes significant improvement in her overall swelling of the left upper extremity and also notes the following improvement: Her arm is not as heavy and she is able to use her arm more after her surgery. She is very pleased with her surgical outcome. As patient is 1 month post op, she can slowly ease back into normal activity over the next couple weeks. she can now continue with her pre-surgery lymphedema compression management or follow recommendation of lymphedema clinic. She may shower, however, she should not submerge in tub/water until she is at least 6-8 weeks from surgery and all incisions have healed, and are without any scabbing or otherwise compromised. Signs/symptoms of infection reviewed with the patient and the need to call us immediately if any of these occur. Return to work paperwork signed in clinic today. Patient we will return half days starting March 16 for 1 week and returned fully without restriction on March 23. Follow as needed until her next postop ICG with Dr. Saravia in approximately 1 year. Photographs obtained with patient's permission. All questions were asked and answered per patient report. It was an absolute pleasure taking care of Ms. Joceline Uribe. PATIENT EDUCATION Ready to learn, no apparent learning barriers were identified; learning preferences include listening. Explained diagnosis and treatment plan; patient expressed understanding of the content. documented in this encounter Plan of Treatment Scheduled Orders Name Type Priority Associated Diagnoses Orde r Schedule Minor Misc Procedure Procedures Routine Lymphedema Post Mastectomy Expected: 09/10/2023 (Approximate), Expires: 06/11/2024 Minor Misc Procedure Procedures Routine Lymphedema Post Mastectomy Expected: 09/10/2023 (Approximate), Expires: 06/11/2024 documented as of this encounter Visit Diagnoses Diagnosis Lymphedema Post Mastectomy- Primary documented in this encounter Additional Health Concerns Infection Onset Date Last Indicated Resolved Time Protective Environment 09/04/2022 09/04/2022 Assessment Noted Time PHQ-9 Depression Total Score: 12 08/13/2 023 10:14 AM CDT documented as of this encounter Care Teams Set Up And Charger Relationship Specialty Start Date End Date None Reported, Pcp PCP - General Family Medicine 02/09/23 documented as of this encounter
--- OUTSIDE RECORDS SUMMARY | 2023-06-19 00:50 | XMS_ITS | Clinical Summary ---
Author Name Unknown Organization [facility] Address [place], [place] [address] Care Team Providers Care Acid Tester Name Role Phone Sandy Martins MD Unavailable [phone] Linda Velez Primary Care Provider [phone] Allergies Active Allergy Reactions Criticality Noted Date Comments Adhesive Rash Low 02/03/2022 Adhesive Tape-Silicones Rash Medium 12/19/2016 From EKG patches, Dermatitis/Rash Amoxicillin Shortness Of Breath,Hives,Rash,Dy spnea Low 11/11/2003 Ciprofloxacin Shortness Of Breath,Rash,Dyspnea Low 01/07/2017 Gabapentin *Unknown High 01/06/2022 Depression/suicida l ideation Sulfa (Sulfonamide Antibiotics) Shortness Of Breath,Rash 01/17/2010 Vancomycin Rash,Bradycardia High 12/19/2016 Suspected drug rash to vancomycin, not certain Medications Medication Sig Dispensed Refills Start Date End Date Status tamoxifen (NOLVADEX) 20 mg tabletIndications:Ma lignant neoplasm of left breast in female, estrogen receptor positive, unspecified site of breast (HC) Take 1 Tablet (20 mg) by mouth once daily. 90 Tablet 3 10/11/2021 Active abemaciclib (VERZENIO) 150 mg tablet twice a day 0 02/14/2022 Active Cranberry 400 mg capsule every day 0 02/18/2022 Active L.acidoph-L.rhamn-B. bif-B.long (Probiotic Acidophilus Biobeads) 12.9 mg (2 billion cell) TbEC once daily. 0 02/18/2022 Activ e tamoxifen (NOLVADEX) 10 mg tablet .d 0 02/03/2022 Active cholecalciferol (VITAMIN D3) 2,000 unit capsule Take 50 mcg by mouth once daily. 0 11/25/2021 Active loperamide (IMODIUM) 2 mg capsule Take 2 mg by mouth one time if needed. 0 Active ondansetron (ZOFRAN ODT) 4 mg disintegrating tablet DISSOLVE ONE TABLET ON THE TONGUE EVERY EIGHT HOURS 0 11/12/2022 Active PreviDent 5000 Booster Plus 1.1 % pste APPLY A SMALL AMOUNT TO TEETH EVERY NIGHT BRUSH ONTO TEETH BEFORE BEDTIME, THEN EXPECTORATE. DO NOT EAT OR DRINK 30 MINUTES AFTER 0 02/23/2023 Active predniSONE (DELTASONE) 20 mg tabletIndications:Ac ohogamiut midline low back pain without sciatica Take 3 tablets by mouth for 3 days then 2 tablets by mouth for 3 days then 1 tablet by mouth for 3 days then 1/2 tablet by mouth for 3 days. Take with food. 20 Tablet 0 05/19/2023 Active tiZANidine (ZANAFLEX) 4 mg tabletIndications:Ac ohogamiut midline low back pain without sciatica Take 1 Tablet (4 mg) by mouth every 8 hours if needed for Muscle Spasm. 30 Tablet 1 05/19/2023 Active levothyroxine (SYNTHROID) 75 mcg tabletIndications:Hy pothyroidism (acquired) Take 1 Tablet (75 mcg) by mouth once daily. 90 Tablet 3 06/04/2023 Active DULoxetine (CYMBALTA) 30 mg Delayed-release capsuleIndications:P ain Take 1 Capsule (30 mg) by mouth once daily. 30 Capsule 6 06/05/2023 Active triamcinolone (ARISTOCORT; KENALOG) 0.1 % creamIndications:Catie erin cancer of left breast (HC),Rash Apply topically to affected area(s) 3 times daily. 15 g 1 09/06/2021 4 Discontinue d(*Patient states no longer taking) levothyroxine (SYNTHROID) 75 mcg tabletIndications:Hy pothyroidism (acquired) TAKE 1 TABLET (75 MCG) BY MOUTH ONCE DAILY. 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 coli UTI 12/26/2016 04/05/2021 Acute tetraplegia 12/10/2016 01/23/2021 Vitamin D deficiency 09/22/2011 021 Overview: VITAMIN D TOTAL (ng/mL) Date Value 08/11/2011 21.6* 08/05/2010 20.3* 10/22/2009 28.0* Ergocalciferol 50,000 IU 3x/wk for 4 wks started 09/22/2011 Instructed to then switch to D3 4,000 IU/day Re-check Vit D Level in ~3-6 months Itching 09/22/2011 11/07/2022 Encounters Date Type Department Care Team Description 06/05/2023 10:45 AM PRESIDENT AND CHIEF OPERATING OFFICER [facility] [address] [place] [address] Alisha Arboleda, DO Follow Up 06/04/2023 Orders Only [facility] [address] [place] [address] Linda Velez PA <No scans attached> 06/04/2023 Travel 06/03/2023 4:05 PM PRESIDENT AND CHIEF OPERATING OFFICER Office Visit [facility] [id number] [place] [phone] Linda Velez PA Medication Management (refill) 06/03/2023 Travel 05/19/2023 2:10 PM PRESIDENT AND CHIEF OPERATING OFFICER Office Visit [facility] [id number] [place] [phone] Linda Velez PA Rash (X 10 days RASH ON x 4 week FOOT AND BACK PAIN, patient was seen at on 05/13/23 and was treated ); Fall (Patient fell on thanksgiving and onto LT HIP ) 05/19/2023 Travel 05/05/2023 Telephone [facility] [id number] [place] [id number] Linda Velez PA Form 03/23/2023 Orders Only [facility] Scanner 1 scan: (1-Ord) [facility], ABDOMEN PELVIS W/CON, 03/23/2023 from Last 3 Months Immunizations Name Administration Dates Next Due COVID-19 vaccine (SupplyBetter NTAviasales 30mcg/0.3mL) PF, MDV 09/29/2020,09/07/2020 Influenza RIV4 (Age 18+ Years) PRESERV FREE 03/19 Influenza, IIV3 (Age >=3 years) 01/24/2009,04/05 Influenza, IIV4 05/05/2022,04/09/2018,03/14/2015 Td (Age >=7 Years) 06/11/2004,02/14/1994 Tdap 12/02/2016 Zoster (Shingrix-RZV, recombinant) 05/07/2021, Family History Medical History Relation Name Comments Cancer Father lung, bladder, lymph Cancer-breast Maternal Grandmother Hypertension Maternal Grandmother Cancer Mother liver Cancer-breast Mother mastectomy Hypertension Mother Other Paternal Grandmother glaucom a Stroke Paternal Grandmother Cancer Sister Cancer-breast Sister Relation Name Status Comments Father (Age 60) Maternal Grandmother Mother Paternal Grandmother catarac t Sister Social History Tobacco Use Types Packs/Day Years Used Date Smoking Tobacco: Never Smokeless Tobacco: Never Tobacco Cessation:Counseling Given: Yes Alcohol Use Standard Drinks/Week Comments No 0 (1 standard drink = 0.6 oz pur e alcohol) PHQ-2 Answer Date Recorded PHQ-2 TOTAL SCORE 0 06/03/2023 Social Connections Answer Date Recorded Frequency of Communication with Friends and Fami ly Not on file 06/07/2023 Financial Resource Strain Answer Date R ecorded Difficulty of Paying Living Expenses 3 06/05/2022 Difficulty of Paying Living Expenses Not on file 06/05/2022 Food Insecurity Answer Date Recorded Worried About Running Out of Food in the Last Ye ar 1 06/05/2022 Transportation Needs Answer Date Record ed Lack of Transportation (Medical) 1 06/05/2022 Housing Stability Answer Date Recorded Unable to Pay for Housing in the Last Year 1 06/05/2022 Sex and Gender Information Value Date Recorded Sex Assigned at Female 01/18/2021 8:55 PM CDT Gender Identity Female 01/18/2021 8:55 PM CDT Sexual Orientation Straight 01/18/2021 8: 55 PM CDT Obstetrics History Para Term AB IAB SAB Ectopic Multiple Livin g Live Births 2 2 Date Outcome GA Total Labor Labor/2nd/3rd Weight Sex Delivery Anes PTL Sofia A1 A5 Name Cl in Last Filed Vital Signs Vital Sign Reading Time Taken Comments Blood Pressure 134/64 06/05/2023 10:40 AM PRESIDENT AND CHIEF OPERATING OFFICER Pulse 76 06/05/2023 10:40 AM PRESIDENT AND CHIEF OPERATING OFFICER Temperature 37 ??C (98.6 ??F) 05/19/2023 2:07 PM PRESIDENT AND CHIEF OPERATING OFFICER Respiratory Rate 20 11/01/2021 1:48 PM CDT Oxygen Saturation 98% 06/05/2023 10:40 AM PRESIDENT AND CHIEF OPERATING OFFICER Inhaled Oxygen Concentration - - Weight 90.3 kg (199 lb) 06/03/2023 4:09 PM PRESIDENT AND CHIEF OPERATING OFFICER Height 165.1 cm (5' 5) 06/03/2023 4:09 PM PRESIDENT AND CHIEF OPERATING OFFICER Body Mass Index 33.12 06/03/2023 4:09 PM PRESIDENT AND CHIEF OPERATING OFFICER Plan of Treatment Upcoming Encounters Date Type Department Care Team (Late st Contact Info) Description 06/10/2024 10:45 AM PRESIDENT AND CHIEF OPERATING OFFICER Office Visit [facility] [address] [place] [address] Alisha Arboleda DO [address] [place] [address] Health Maintenance Due Date Last Done Comments Pneumococcal series for age 6-64 (1 of 2 - PCV) 1975 HIV for age 15-65 1984 Hepatitis C screening for ag e 18-79 1987 Colonoscopy through age 75 2014 COVID-19 vaccine series ( - season) 2023 02/17/2022, 05/14/2021, 09/29/2020, Additional history exists Influenza for age 50-64 01/16/2023 05/05/20, 04/06/2020, 04/09/2018, Additional history exists Mammogram for age 45-75 08/15/2023 08/15/19, 11/09/2021 (Verified in Care Everywhere or Patient Record), 03/15/2021, Additional history exists BMI (ht and wt on same day) for age 18+ 06/03/2024 06/03/2023, 05/19/2023, 11/07/2022, Additional history exists Depression screening for age 12+ 06/05/2024 06/05/2023, 06/03/2023, 06/13/2022, Additional history exists Tetanus booster 12/02/2026 12/02/2016, 05/19, 06/11/2004 (Completed outside of [facility]), Additional history exists Lipids for age 45-75 06/10/2027 06/10/2022, 01/22/2021, 08/11/2011, Additional history exists Tdap Completed 12/02/2016 Zoster (shingles) series for age 50+ Completed 05/07/2021, 03/07/2021 Medical Devices Implanted Type Area Collection Card Clerk Device Identifier Shelf Expiration Date Model / Serial / Lot [id number] Implanted:Qty: 1 on 12/10/2016 by Lorenzo Dc MD at [facility] Explanted:at [facility] (Quantity not on file) N/A: Spine [employer] 02/20/2019 [id number] / [id number] / Description:SERV FEE BIO AVS CERV 4 DEG [place] [id number] one Matrix 1cc [place] Plus Paste Dbm Implanted:Qty: 1 on 12/10/2016 by Lorenzo Dc MD at [facility] Explanted:at [facility] (Quantity not on file) N/A: Spine [employer] 07/02/2018 [id number] / [id number] / Port W/8fr 1 [employer] - [id number] Implanted:Qty: 1 on 05/21/2021 by Katherine Hawthorne MD at [facility] Right: Jugular Vein [employer] 10/15/2022 [id number] / / [id number] Procedures Procedure Name Priority Date/Time Associated Diagnosis Comments TSH Routine 06/03/2023 4:34 PM PRESIDENT AND CHIEF OPERATING OFFICER Congenital 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 SCAN-CT INTERPRETATION 12:00 AM PRESIDENT AND CHIEF OPERATING OFFICER from Last 3 Months Results * TSH (06/03/2023 4:34 PM PRESIDENT AND CHIEF OPERATING OFFICER) TSH 3.03 0.27 - 4.20 uIU/mL 06/03/2023 9:49 PM PRESIDENT AND CHIEF OPERATING OFFICER [facility] Blood BLOOD SPECIMEN / Unknown Capillary / Unknown 06/03/2023 4:34 PM PRESIDENT AND CHIEF OPERATING OFFICER 06/03/2023 4:34 PM PRESIDENT AND CHIEF OPERATING OFFICER Narrative [facility] - 06/03/2023 9:49 PM PRESIDENT AND CHIEF OPERATING OFFICER In Adults, TSH values between 5.00 and 10.00 uIU/ml do not necessarily indicate the presence of Hypothyroidism. Correlation with clinical findings such as presence of goiter and/or Thyroperoxidase (TPO) Antibody may be helpful. For more information please refer to RAHEEM 2004; 291: 228-238. Linda BOLDEN CHEMISTRY [facility] [address] [place] [address], * SCAN-CT INTERPRETATION (03/23/2023 12:00 AM PRESIDENT AND CHIEF OPERATING OFFICER) Anatomical Region Laterality Modality Other Scanner OTHER from Last 3 Months Advance Directives Latest Code Status on File Code Status Date Activated Date Inactivated Comments Full Code 05/21/2021 6:09 AM 05/21/2021 12:12 PM Question Answer Comments Code Status Discussion: Unable to Assess Preferences, Provider to review later Code Status History Code Status Date Activated Date Inactivated Comments Full Code 04/25/2021 9:15 AM 04/25/2021 6:18 PM Question Answer Comments Code Status Discussion: Unable to Assess Preferences, Provider to review later Full Code 12/19/2016 1:21 PM 01/22/2017 1:22 PM Full Code 12/10/2016 9:51 PM 12/19/2016 1:20 PM Full Code 12/10/2016 9:57 AM 12/10/2016 9:13 PM Question Answer Comments Code Status Discussion: Not Discussed Care Teams Acid Tester Relationship Specialty [place] [address] [place] [address] PCP - General Physician Indoor Plant Technician 06/13/22 Sandy Martins MD [address] [place] [address] Medical Oncologist Oncology 03/29/21
--- OUTSIDE RECORDS SUMMARY | 2023-06-19 00:50 | XMS_ITS | Encounter Summary ---
Author Name Unknown Organization [facility] Address [address] [place] [id number] Care Team Providers Care Php Developer Name Role Phone None Reported, Pcp Primary Care Provider Unavail able Reason for Visit * Physical Therapy (Routine) - Closed Specialty Diagnoses / Procedures Referred By Cassidy t Referred To Contact Diagnoses Lymphedema Post Mastectomy Procedures PT or OT eval and treat (first available) Eber Saravia M.D. [address] [place] [address] [facility] Referral ID Status Reason Start Date Expiration Date Visits Re quested Visits Authorized [id number] Closed 07/29/2022 07/30/2023 1 1 Encounter Details Date Type Department Care Team (Latest Contact Info) Description 03/11/2023 3:30 PM CDT Comprehensive Visit Department of Physical Medicine and Rehabilitation in [place], [place] [address] [place] [phone] Eber Saravia M.D. [address] [place] [phone] Agnes Aggarwal P.T., D.P.T. [address] [place] [phone] Lymphedema Post Mastectomy Social History Tobacco Use Types Packs/Day Years [...] often do you attend chur ch or sabianism services? More than 4 times per year 06/29/2022 Do you belong to any clubs o r organizations such as confucianism groups, unions, fraternal or athletic groups, or [...] Answer Date Recorded PHQ-2 Score 2 08/13/2022 [facility] - Occupational Stress [...] or slept in a longterm (including now)? No 06/29/2022 Depression Answer Date [...] as of this encounter Progress Notes * Agnes Aggarwal P.T., D.P.T. - 03/11/2023 3:30 PM CDT Physical Therapy Lymphedema Outpatient Progress Note Patient's Name: Joceline Gomeznzel Referring Provider: Eber Saravia M.D. Rehab Diagnosis: 1. Lymphedema Post Mastectomy Reason for Referral: PT evaluate and treat LVA History of Present Illness: Patient underwent LVA on 02/09/23. Onset Date: 01/28/23 [facility] / Plan: [facility] [employer] / Product Type: HMO / SUBJECTIVE Patient/Caregiver Goals: Post op measurements. Patient Comments: Patient and have been compliant with bandaging. Total Visit Count: 2 OBJECTIVE Cleared by plastics today from wrapping; approved to transition to compression maintenance. 10 cm measurements updated. Reduction noted in measurements. Mild +1 pitting in hands, otherwise no obviousedema. TREATMENT Therapeutic activity: Therapist assessed patient's upper extremity today. It appears well controlled and managed. She has been in wraps in is now ready to transition back to compression garments. We discussed use of compression glove and sleeve for 12 hours each day whether this is at night or during the day. I would recommend wearing compression when she is exercising. We also discussed potential for a tribute if she wishes at night if edema worsens. She declines at this time. I educated if edema were to worsen as well she could return to compression bandaging with her assisting as they have completed this successfully postoperatively. We will follow-up on as needed basis. Home Exercise Program/Education: as above. Assessment Patient presents with improved left upper extremity edema following LVA procedure. She was cleared to progress out of compression bandaging and is now an appropriately fitting compression garment 20-30 mm Hg sleeve and gauntlet. Recommend continuing to wear 12 hours a day as tolerated. She could attempt to go without compression however if her arm does swell she is able to return to compression bandaging. We will follow-up on as needed basis. Functional Goals and Timeframes: Goal #1: Patient will be independent and compliant with compression to manage edema. Goal #1 Date: 04/28/23 Goal #1 Status: Progressing Plan TREATMENT PLAN Number of Visits: up to 5 visits Frequency: Follow-up visit only Plan: Continue with current plan Plan Comments: Follow-up as needed. Treatment interventions may include: Therapeutic exercise, Therapeutic functional activity Daytime Compression Program: Compression bra, Arm sleeve, Glove PT: Time Spent with Patient Therapeutic Interventions Therapeutic Activity (min): 32 min Time Tracking Total Timed Units (min): 32 min Total Treatment Time (min): 32 min Agnes Aggarwal P.T., D.P.T. documented in this encounter Plan of Treatment Not on file documented as of this encounter Visit Diagnoses Diagnosis Lymphedema Post Mastectomy documented in this encounter Additional Health Concerns Infection Onset Date Last Indicated Resolved Time Protective Environment 09/04/2022 09/04/2022 Assessment Noted Time PHQ-9 Depression Total Score: 12 023 10:14 AM CDT documented as of this encounter Care Teams Php Developer Relationship Specialty Start Date End Date None Reported, Pcp PCP - General Family Medicine 02/09/23 documented as of this encounter
--- OUTSIDE RECORDS SUMMARY | 2023-06-19 00:50 | XMS_ITS | Encounter Summary ---
Author Name Unknown Organization [facility] Address [address] [place] [address] Care Team Providers Care Lock And Dam Operator Name Role Phone None Reported, Pcp Primary Care Provider Unavail able Encounter Details Date Type Department Care Team (Latest Contact Info) Description 05/07/2023 Clinical Communication Department of Physical Medicine and Rehabilitation in [place], [place] [address] [place] [address] Jeaneth Llamas, O.T., [facility] [address] [place] [address] Social History Tobacco Use Types Packs/Day Years [...] How often do you attend chur or faith services? More than 4 times per year 06/29/2022 Do you belong to any clubs o r organizations such as anabaptism groups, unions, fraternal or athletic groups, or [...] Answer Date Recorded PHQ-2 Score 2 08/13/2022 [facility] - Occupational [...] or slept in a snf (including now)? No 06/29/2022 Depression Answer Date [...] documented as of this encounter Miscellaneous Notes * Telephone Encounter - Jaeneth Llamas O.T., CLT-KATHY - 05/08/2023 12:35 PM CST Spoke to patient by phone. I will mail her prescription to her address on file and she will get a hold of doors prefitter in [facility]. RAL STUDIES PROGRAM CHAIR * Telephone Encounter - Nahomi Shannon - 05/07/2023 1:02 PM CST Jeaneth/Carli Alarcona called in this afternoon regarding her orders for lymphedema sleeve and glove. When she went to the [facility] in [place], they were missing the order for the glove. Also, she mentionedthe person there wasn't able to measure her correctly, so she thinks she may need the orders faxed over to [facility]'s. I told her I'd send a message to you both for one of you to reach out to her to discuss the situation and next steps further. Could one of you please give her a call? Best number to reach her at is [phone]. Thank you. RAL STUDIES PROGRAM CHAIR documented in this encounter Plan of Treatment Not on file documented as of this encounter Visit Diagnoses Not on filedocumented in this encounter Additional Health Concerns Infection Onset Date Last Indicated Resolved Time Protective Environment 09/04/2022 09/04/2022 Assessment Noted Time PHQ-9 Depression Total Score: 12 08/13/ 023 10:14 AM CDT documented as of this encounter Care Teams Lock And Dam Operator Relationship Specialty Start Date End Date None Reported, Pcp PCP - General Family Medicine 02/09/23 documented as of this encounter
--- OUTSIDE RECORDS SUMMARY | 2023-06-19 00:50 | XMS_ITS | Clinical Summary ---
Author Name Unknown Organization [facility] Address [address] [place] [address] Care Team Providers Care Rotary Soil Stabilizer Operator Name Role Phone Dory Salgado MD Primary Care Provider [phone] Source Comments You are receiving this document as you are listed as the primary care provider,follow-up provider, or the patient has been referred to you for consultation.This is in compliance with the Medicare andThe [facility] EHR Incentive Program,which states Providers who transition their patient to another setting of careor provider of care or refers their patient to another provider of care shouldprovide summary care record for each transition of care or referral. [facility] Allergies Active Allergy Reactions Criticality Noted Date Comments Adhesive 06/10/2017 Amoxicillin Hives 11/11/2003 Ciprofloxacin 06/10/2017 Sulfa Antibiotics Hives 11/11/2003 Vancomycin 06/10/2017 Medications Medication Sig Dispensed Refills Start Date End Date Status PREDNISONE 20MG ORAL TABS 0 11/11/2003 Active DIPHENHYDRAMINE HCL (BENADRYL) 25MG ORAL CAPS 0 11/11/2003 Active PREDNISONE 20MG ORAL TABS one tablet po bid x 4 days then one tablet qd x 4 days then 1/2 tablet qd x 4 days then 1/2 tablet qod x 4 days qs 0 11/11/2003 Active unknown medication Indications: PN: 0 11/08/2003 Active Multiple Vitamins-Minerals (MULTIVITAMIN OR) Take 1 tablet by mouth daily (every 24 hours). 100 13 11/08/2003 Active FLUoxetine (AKA PROZAC) 20 MG capsule Take 3 capsules by mouth daily (every 24 hours). 270 1 12/27/2007 Active buPROPion (AKA WELLBUTRIN SR) 100 MG 12 hour release tablet Take 2 tablets by mouth every morning. 180 1 12/27/2007 Active mirabegron (MYRBETRIQ) 25 MG 24 hour release tabletIndications:Uri nary urgency,Urinary frequency Take 1 Tab by mouth daily. 90 Tab 3 07/31/2017 Active Active Problems Problem Noted Date Diagnosed Date Major depressive disorder, single episode 2003 Overview: LW Onset: 48Oxp75 ; Depression Major NOS Resolved Problems Problem Noted Date Diagnosed Date Resolved Date Allergic state 11/08/2003 03/23/2005 Overview: LW Onset: ; Allergic Reaction Immunizations Name Administration Dates Next Due Td 02/14/1994 Social History Tobacco Use Types Packs/Day Years Used Date Smoking Tobacco: Never Assessed Sex and Gender Information Value Date Recorded Sex Assigned at Not on file Gender Identity Not on file Sexual Orientation Not on file Last Filed Vital Signs Vital Sign Reading Time Taken Comments Blood Pressure 100/70 02/16/2017 1:25 PM CDT Pulse 60 02/16/2017 1:25 PM CDT Temperature 36.6 ??C (97.8 ??F) 11/11/2003 10:30 AM C DT Respiratory Rate 16 11/11/2003 10:30 AM CDT Oxygen Saturation - - Inhaled Oxygen Concentration - - Weight - - Height - - Body Mass Index - - Plan of Treatment Health Maintenance Due Date Last Done Comments Colon Cancer Screening Plan Due 1969 Hep C Screening (Preventive Services) 1969 HepB (1) 1969 COVID-19 Vaccine (#1) 1969 HIV Screening (Preventive Services) 1985 Adult Preventive Visit 1987 Cervical Cancer Screening Due 03/08/2004, 01/11/2003, 01/06/2002 DTaP/Tdap/Td (1 - Tdap) 06/12/2004 06/11/19 05, 02/14/1994 Cholesterol 2014 01/06/2002 Zoster/Shingles (1 of 2) 2019 Mammogram 03/15/2022 03/15/2021 Influenza (#1) 2023 HepA Aged Out No longer eligi ble based on patient's age to complete this topic Hib Aged Out No longer eligi ble based on patient's age to complete this topic IPV (Polio) Aged Out No longer eligi ble based on patient's age to complete this topic MCV4 Aged Out No longer eligi ble based on patient's age to complete this topic Pneumococcal Aged Out No longer eligi ble based on patient's age to complete this topic Care Teams Rotary Soil Stabilizer Operator Relationship Specialty Start Date End Date Dory Salgado MD [address] [facility] 5th [place] [address] PCP - General 08/19/10
--- OUTSIDE RECORDS SUMMARY | 2023-06-19 00:50 | XMS_ITS | Clinical Summary ---
Author Name Unknown Organization [facility] Address [address] [place] [address] Care Team Providers Care Fire Boat Engineer Name Role Phone None Reported, Pcp Primary Care Provider Unavail able Source Comments Patient records contain information from all sites at [facility]. For routine questions regarding patient records, call [phone] during business hours, M-F 8:00 AM - 5:00 PM Central Time. Record requests for emergency care only can be directed to [phone] at any time.[facility] Allergies Active Allergy Reactions Criticality Noted [...] with 1 twice daily 0 06/11/2022 Active xfernhrt-rhn-gerbl acid-biotin (Hair,Skin and Nails,FA-biotin,) 133.3 mcg- 1,666.7 [...] Overview: Added automatically from request for surgery [id number] Added automatically from request for surgery [id number] Malignant Neoplasm Of Breast Upper Outer Quadrant Female Left 10/23/2021 Cancer Staging:Pathologic stage from 04/25/2021:Stage IIB(pT2, pN2a, cM0, G3, ER+, LA+, HER2-) - Unsigned Other Cervical Disc Displace ment Unspecified Cervical Region 12/10/2016 Hypothyroidism 08/05/2010 Meniere's Disease Right 08/05/2010 Resolved Problems Problem Noted Date Diagnosed Date Resolved Date Quadriplegia 08/16/2021 01/28/2023 Encounters Date Type Department Care Team Description 05/07/2023 Clinical Communication Department of Physical Medicine and Rehabilitation in [place], [place] [address] [place] [address] Jeaneth Llamas OSilvestre., [facility] from Last 3 Months Immunizations Name Administration Dates Next Due Influenza TIV (IM) 01/24/2009,04/05/2007 Influenza, Seasonal, Injectable 01/24/2009,04/05 Influenza, Unspecified 05/05/2022 RZV (SHINGRIX) 05/07/2021,03/07/2021 Td (Adult), adsorbed 06/11/2004,02/14/1994 Tdap 12/02/2016 influenza vaccine QV(FLUBLOK ) (18 years or older) (PF) 04/06/2020 influenza vaccine quad (FLUZONE/FLUARIX) (6 months and older)(PF) 04/06/2020,04/09/2018,03/14/2015,2008,04/05/2007 Family History Medical History Relation Name Comments Skin cancer Brother 1 Samuel Obesity Brother 2 Tyler Lung cancer Father Hardy Smoking, asbest os Obesity Father Hardy Other cancer Father Hardy Bladder, throat Alcohol abuse Maternal Grandfather Edward Alcohol abuse Mother Mariam Breast cancer Mother Mariam Double mastect cami, liver cancer 3 years later Hypertension Mother Mariam Obesity Mother Mariam Stroke Paternal Grandmother Macy Breast cancer Sister Katherine Lumpectomy Skin cancer Sister Katherine Relation Name Status Comments Brother 1 Samuel Brother 2 Tyler Father Hardy Maternal Grandfather Edward Mother Mariam Paternal Grandmother Macy Sister Katherine [...] often do you attend chur ch or latter day services? More than 4 times per year 06/29/2022 Do you belong to any clubs o r organizations such as restorationist groups, unions, fraternal or athletic groups, or [...] Answer Date Recorded PHQ-2 Score 2 08/13/2022 [facility] - Occupational Stress [...] or slept in a alf (including now)? No 06/29/2022 Depression Answer Date [...] 02/09/2023 7:10 AM CDT Plan of Treatment Health Maintenance Due Date Last Done Comments CT Colonography 1969 Cologuard 1969 FIT 1969 Hepatitis B Vaccines (1 of 3 - 3-dose series) 1969 Hepatitis C Screening 1969 Pneumococcal vaccine (0-64 years) (1 of 2 - PCV) 1975 Mammogram 11/07/2022 11/07/2021, 1201/2021, 04/25/2021, Additional history exists COVID-19 Vaccine (2022- season) 2023 02/17/2022, 05/14/2021, 09/28/2020, Additional history exists Depression Screening (Annual PHQ-2) 05/18/2023 Thyroid Stimulating Hormone (TSH) test for thyroid function 06/03/2024 06/03/2023, 06/10/2022, 01/22/2021 Fasting Glucose for Diabetes Screening 01/28/2026 01/28/2023, 11/22/2021, 10/11/2021, Additional history exists DTaP,Tdap,and Td Vaccines (2 - Td or Tdap) 12/02/2026 12/02/2016, 06/11/2004, 02/14/1994 Lipid (Cholesterol) Screening 06/10/2027 06/10/2022, 01/22/2021 Colonoscopy 05/20/2029 05/20/2019 (Perf ormed elsewhere) Colorectal Cancer Screening 05/20/2029 Zoster Vaccines Completed 05/07/2021, 03/07/2021 Influenza Vaccine Completed 03/14/2023, , 05/05/2022, Additional history exists HPV Vaccines Aged Out No longer eligi ble based on patient's age to complete this topic Medical Devices Implanted Type Area In Home Caregiver Device Identifier Shelf Expiration Date Model / Serial / Lot Hardware E.G. Pins/Screws/R ods Hardware e.g. pins/screws/ rods Mouth Description:Dental implants Clp Hrzn Ti 6 Clp Sm Red - [id number] Implanted:Qty : 1 on 11/12/2021 by Jennifer Berger D.O. at [facility] Hardware e.g. pins/screws/ rods [employer] [id number] 06/03/2026 [id number] / / [id number] Clp Vowinckel Ti Spr Mcr 1.5 - [id number] Implanted:Qty : 1 on 02/09/2023 by Eber Saravia M.D. at [facility] Hardware e.g. pins/screws/ rods [employer] [id number] / / Imaging Marker Imaging Marker Breast Additional Health Concerns Infection Onset Date Last Indicated Protective Environment 09/04/2022 3 Advance Directives For more information, please contact: [phone] Latest Code Status on File Code Status Date Activated Date Inactivated Comments Full Code 11/12/2021 7:28 AM 11/12/2021 9:42 PM Question Answer Comments Full Code: Not Discussed Due to: Not medically appropriate Care Teams Fire Boat Engineer Relationship Specialty Start Date End Date None Reported, Pcp PCP - General Family Medicine 02/09/23
--- OUTSIDE RECORDS SUMMARY | 2023-06-19 00:50 | XMS_ITS | Continuity of Care Document ---
Author Name Unknown Organization [facility] Address [address] [place] [address] Phone Care Team Providers Care Territory Sales Representative Name Role Phone Gabrielle Rodriguez MD Unavailable [...] EST Phone Office/Outpatient Visit,New, Mod 2022 Office/Outpatient Visit,[facility], Mod 2018 X-Ray Exam Of [...] EST Phone [facility], [address], [place], [place], [id number] , [place] tel: [phone] [facility] No Information 3 Michael Anthony. [facility], [address] [place] [address], [address], [place], [address], [place]. tel: [phone] Referring Provider: Lorenzo Dc, [facility] [address] [place] [address], [address], [address]. tel:[phone] Office/Outpa tient Visit,New, Mod [facility], [address], [place], [place], [id number] , [place] tel:[phone] [facility] Spinal stenosis, lumbar region with neurogenic claudication 3 Michael Anthony. [facility], [address] [place] [address], [address], [place], [address], [place]. [phone] Referring Provider: Lorenzo Dc, [facility] [address], [address], [place], [address]. tel:[phone] Office/Outpa tient Visit,Est, Mod [facility], [address], [place], [place], [id number] , [place] tel: [phone] [facility] Encounter for follow-up examination after completed treatment for conditions other than malignant neoplasmSpinal stenosis, lumbar region with neurogenic claudication 9 Dcebony Alcazar er. [facility], [address], [address], [place], [place], [id number] , [place]. tel: [phone] Referring Provider: Lorenzo Dc, [facility] [address], [address], [place], [address]. tel:[phone] Office/Outpa tient Visit,Est, Mod [facility], [address], [place], [place], [id number] , [place] tel: [phone] [facility] Encounter for other specified surgical aftercare 9 Dcebony Alcazar er. [facility], [address] [place] [address], [address], [facility] [place], [id number] , [place]. tel:[phone] Referring Provider: Rachelle Canela [facility] [address] [place], [address]. tel:[phone] Office/Outpa tient Visit,Est, Mod [facility], [address], [place], [place], [id number] , [place] tel: [phone] [facility] Encounter for other specified surgical aftercare 8 Dao Alcazar er. [facility], [address], [address], [place], [place], [id number] , [place]. tel:[phone] Referring Provider: Rachelle Canela [facility] [address] [place], [address]. [phone] Office/Outpa tient Visit,Est, Mod [facility], [address], [place], [place], [address] , [place] tel: [phone] [facility] Encounter for other specified surgical aftercare Dao zapata. [facility], [address], [address], [place], [place], [id number] , [place]. tel: [phone] Referring Provider: Rachelle Canela [facility] [address] [place], [address]. tel:[phone] [facility], [address], [place], [place], [id number] , [place] tel: [phone] [facility] Encounter for other specified surgical aftercare Dao zapata. [facility], [address] [place] [address], [address], [place], [place], [id number] , [place]. tel: [phone] Referring Provider: Rachelle Canela [facility] [address] [place], [address]. tel:[phone] [facility], [address], [place], [place], [id number] , [place] tel: [phone] [facility] No Information Dao zapata. [facility], [address], [address], [place], [place], [id number] , [place]. tel: [phone] Referring Provider: Rachelle Canela [facility] [address] [place], [address]. tel:[phone] Office/Outpa tient Visit,Est, Mod [facility], [address], [place], [place], [address] , [place] tel: [phone] [facility] Spinal stenosis, cervical region Dao zapata. [facility], [address] [place] [address], [address], [place], [place], [id number] , [place]. tel:[phone] Referring Provider: Rachelle Canela [facility] [address] [place], [address]. tel:[phone] Office/Outpa tient Visit,Est, Mod [facility], [address], [place], [id number] , [place] [phone] [facility] Spinal stenosis, cervical regionCervical disc disorder at C5-C6 level with myelopathy 7 Dao zapata. [facility], [address], [address], [place], [id number] , [place]. [phone] Referring Provider: Rachelle Canela [facility] [address] [place], [address]. tel:[phone] Office/Outpa tient Visit,New, Mod [facility], [address], [place], [id number] , [place] tel:[phone] [facility] Spinal stenosis, cervical regionCervical disc disorder at C5-C6 level with myelopathy 7 Riki Hodges. [facility], [address] [place] [address] [address], [place], [id number] , [place]. tel:[phone] Referring Provider: Rachelle Canela [facility] [address] [place], [address]. tel:[phone] Family History Family Member Type Diagnosis Age At Onset No Information Payers Payer name Insurance type Covered alliance party ID Authoramanda hubbard(s) [place] [id number] [facility] [id number] Social History Type Description Quantity Date Captured [...]
--- OUTSIDE RECORDS SUMMARY | 2023-06-19 00:50 | XMS_ITS ---
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 Fusion Cervical Spine Status Post 01/28/2023 Polyneuropathy Due To Drug 01/28/2023 Lymphedema Post Mastectomy 07/04/2022 Overview: Added automatically from request for surgery [id number] Added automatically from request for surgery [id number] Malignant Neoplasm Of Breast Upper Outer Quadrant Female Left 10/23/2021 Cancer Staging:Pathologic stage from 04/25/2021:Stage IIB(pT2, pN2a, cM0, G3, ER+, AR+, HER2-) - Unsigned Other Cervical Disc Displace ment Unspecified Cervical Region 12/10/2016 Hypothyroidism 08/05/2010 Meniere's Disease Right 08/05/2010 Current Oncology Plans No current plan information found. Past Plans No past plan information found. Radiation Treatments * Plan Last Treated On Elapsed Days Fractions Treated Prescribed Fraction Dose Prescribed Total Dose [id number] 02/03/2022 35 25 of 25 220 cGy 5,500 cGy Reference Point Last Treated On Elapsed Days Session Dose Total Dose [id number] 02/03/2022 35 220 cGy 5,500 cGy ICRU ltbreast 01/08/2022 9 226 cGy 1,810 cGy [id number] 01/08/2022 9 200 cGy 1,600 cGy Resolved Problems Problem Noted Date Diagnosed Date Resolved Date Quadriplegia 08/16/2021 01/28/2023
--- OUTSIDE RECORDS SUMMARY | 2023-06-19 00:51 | XMS_ITS | Encounter Summary ---
Author Name Unknown Organization [facility] Address [address] [place] [address] Care Team Providers Care Superintendent Menagerie Name Role Phone None Reported, Pcp Primary Care Provider Unavail able Reason for Visit * Outpatient (Routine) - Closed Specialty Diagnoses / Procedures Referred By Cassidy gutierrez Referred To Contact Plastic Surgery Diagnoses dx Eber Saravia M.D. [address] [place] [address] [facility] Referral ID Status Reason Start Date Expiration Date Visits Re quested Visits Authorized [id number] Closed 11/11/2022 11/10/2025 1 1 Encounter Details Date Type Department Care Team (Latest Contact Info) Description 02/12/2023 9:30 AM CDT Office Visit Division of Plastic Surgery in [place], [place] [address] [place] [phone] Marlen Ruvalcaba APRN, C.N.P., D.N.P. [address] [place] [phone] Follow Up Examination Postoperative Visit (Primary Dx); Lymphedema Post Mastectomy Social History Tobacco Use [...] week 06/29/2022 How often do you attend [facility] or yazidi services? More than 4 times per year 06/29/2022 Do you belong to any clubs o r organizations such as catholic groups, unions, fraternal [...] Answer Date Recorded PHQ-2 Score 2 08/13/2022 [facility] - [...] or slept in a fdc (including now)? No 06/29/2022 Depression Answer Date [...] * Marlen Ruvalcaba APRN, C.N.P., D.N.P. - 02/12/2023 9:30 AM CDT SUBJECTIVE CHIEF COMPLAINT / REASON FOR VISIT Mrs. Joceline Uribe underwent the following procedures on 02/09/[address] Saravia 1. Mapping of superficial lymphatics in left upper extremity using indocyanine green lymphography 2. Mapping of superficial venous system in left upper extremity using infrared vein visualization system 3. Lymphatic reconstruction of left upper extremity with supermicrosurgical lymphaticovenular anastomosis (LVA) with 9 anastomoses created, with 4. Use of high-power surgical microscope 5. Application of layered compression system to left upper extremity Routine postop visit - 3 days PO HISTORY OF PRESENT ILLNESS Mrs. Joceline [...] breast completed radiation 02/03/2022. She is now 3 days postop her recent left upper extremity LVA and reports that the recovery has beengoing well overall. She reports severe pain on radial aspect of wrist that started the night after surgery while sleeping, pain can get up to 9 to 10/10 but subsides when she is up and moving around.She reports that this is improving but is wondering if there is other explanation for this pain. She has not been taking any pain medication. She denies systemic or local signs/symptoms of an infection, including fevers, chills, malaise. Shecontinues wearing compression wraps as instructed. She was seen in lymphedema clinic this morning and reports she is shown how to properly apply compression wrap and arm measurement completed. She continues to follow activity restriction. REVIEW OF SYSTEMS Pertinent items noted in HPI. OBJECTIVE PHYSICAL EXAM General: Patient is alert and oriented x 3. She does not appear to be in acute distress. Very pleasant. Accompanied by her . Left upper extremity: Incisions appears clean, dry, and intact with surgical glue. Surgical planning marking present throughout right distal arm. Mild amount of expected swelling. No erythema or drainage noted. No obvious [...] reconstruction of left upper extremity with supermicrosurgical lymphaticovenular anastomosis (LVA) with 9 anastomoses created, with 4. Use of high-power surgical microscope 5. Application of layered compression system to left upper extremity #2 Routine postop visit - 3 days PO It was a pleasure seeing Ms. Joceline Uribe today in the clinic. She is recovering well after her recent surgery. She is unfortunately endorsing increased amount of pain on the left radial aspect of wrist when sleeping and with positioning. She states that this is improving with pillow support; I do not see any abnormal finding on physical exam today. Discussed with the patient this is likely due to positioning during surgery as this procedure was long. Assured her the fact that is painis improving is a good sign. I told her to continue monitoring this area closely and let us know ifany other signs and symptoms that would warrant immediate medical attention. Patient is in agreement with this plan. I also recommended [id number]-lphawuw Tylenol and ibuprofen as needed for pain management. She was instructed to continue with wrapping he right arm / except for showering for a total of 4 weeks after surgery. It should be re-wrapped on daily basis, assess skin/incisions daily. Wrappings should be comfortably snug, but not so tight that they cut off circulation, cause pain, or leave deep grooves in skin. Activity and weight restrictions also discussed with the patient in detail. - She should keep her right upper extremity elevated as much as possible. - Limb with surgical site must never be pointing down without wrappings/compression on - She may go for light walks but avoid strenuous activity, heavy lifting, or repetition arm movement until she is 4-6 weeks from surgery. - Keep limb elevated, with 10-minute breaks every hour for the first month She may shower, however, she should not submerge in tub/water until she is at least 6-8 weeks from surgery and all incisions have healed, and are without any scabbing or otherwise compromised. Signs/symptoms of infection reviewed with the patient and the need to call us immediately if any of these occur. Patient will return to clinic in 4 weeks for her next postoperative follow-up. Photographs obtained with patient's permission. All questions were asked and answered per patient report. It was an absolute pleasure taking care of . Joceline Uribe. PATIENT EDUCATION Ready to learn, no apparent learning barriers were identified; learning preferences include listening. Explained diagnosis and treatment plan; patient expressed understanding of the content. documented in this encounter Miscellaneous Notes * Addendum Note - Yolande Limon RJuan - 02/12/2023 9:30 AM CDTAddended by: YOLANDE LIMON on: 02/20/2023 11:59 AM Modules accepted: Orders documented in this encounter Plan of Treatment Not on file documented as of this encounter Visit Diagnoses Diagnosis Follow Up Examination Postoperative Visit- Primary Lymphedema Post Mastectomy documented in this encounter Additional Health Concerns Infection Onset Date Last Indicated Resolved Time Protective Environment 09/04/2022 09/04/2022 Assessment Noted Time PHQ-9 Depression Total Score: 12 08/13/ 023 10:14 AM CDT documented as of this encounter Care Teams Superintendent Menagerie Relationship Specialty Start Date End Date None Reported, Pcp PCP - General Family Medicine 02/09/23 documented as of this encounter
--- OUTSIDE RECORDS SUMMARY | 2023-06-19 00:51 | XMS_ITS | Encounter Summary ---
Author Name Unknown Organization [facility] Address [address] [place] [address] Care Team Providers Care Flight Teacher Name Role Phone None Reported, Pcp Primary Care Provider Unavail able Reason for Visit * Occupational Therapy (Routine) - Closed Specialty Diagnoses / Procedures Referred By Cassidy t Referred To Contact Diagnoses Lymphedema Post Mastectomy Procedures OT Evaluate and treat Rst Pmr Roei [address] [place] [phone] [facility] Referral ID Status Reason Start Date Expiration Date Visits Re quested Visits Authorized [id number] Closed 07/29/2022 07/30/2023 1 1 Encounter Details Date Type Department Care Team (Latest Contact Info) Description 02/12/2023 7:30 AM CDT Comprehensive Visit Department of Physical Medicine and Rehabilitation in [place], [place] [address] [place] [phone] Eber Saravia M.D. [address] [place] [phone] Jeaneth Llamas O.T., [facility] [address] [place] [phone] Lymphedema Post Mastectomy (Primary Dx) Social History [...] often do you attend chur ch or buddhism services? More than 4 times per year 06/29/2022 Do you belong to any clubs o r organizations such as amish groups, unions, fraternal [...] Answer Date Recorded PHQ-2 Score 2 08/13/2022 [facility] - Occupational Stress [...] or slept in a custodial (including now)? No 06/29/2022 Depression Answer Date [...] as of this encounter Progress Notes * Jeaneth Llamas O.T., T-KATHY - 02/12/2023 7:30 AM CDT Occupational Therapy Lymphedema Outpatient Progress Note By co-signing this note, the provider certifies the therapy being provided to this patient is reasonable and necessary for the diagnosis or treatment of this patient. Patient's Name: Joceline Uribe Referring Provider: Eber Saravia M.D. Rehab Diagnosis: 1. Lymphedema Post Mastectomy Reason for Referral: Post LVA protocol History of Present Illness: Patient is a 51 year old female s/p lumpectomy and SLNB on the left (Apr 2021), adjuvant chemotherapy in setting of stage IIB invasive ductal carcinoma. On 11/12/2021 patient had a level 1 to level II left axillary lymph node dissection as well as an LV bypass left axilla. Completed 25 fractions of radiation on 02/03/2022. 02/09/23:surgery LVA 9 anastomosis forearm. Onset Date: 11/12/21 Payor: [facility] / Plan: [facility] [employer] [employer] / Product Type: HMO / SUBJECTIVE Patient/Caregiver Goals: Manage breast edema Patient has been bandaging left upper extremity since surgery. Total Visit Count: 7 OBJECTIVE TREATMENT Left Upper Extremity Evaluation 02/12/2023 10 cm 18.4 18.4 20 cm 18.3 18.3 30 cm 25.9 25.9 40 cm 24.8 24.8 50 cm 31.8 31.8 60 cm Lymph Volume (L) 1812.45 ml Change in Volume (ml) -1337.62 ml Change from initial Edema % -42.46 % Left upper extremity: Patient with 1+ pitting edema in hand and digits. Forearm and upper arm well managed. Able to see all bony prominences in upper extremity except hand. Incisions: No drainage noted. 4 Incisions with surgical glue in place. No erythema. No complaints of pain Treatment: Reviewed short stretch bandaging with patient and supportive spouse. Changed dressing to Telfa pads. Used Artiflex from hand to axilla followed by 2 x 8 cm bandages (6 cm bandages unavailable in department today). Created a gradient distal to proximal with multiple layers, spiral technique. Reviewed technique with both patient and her who will be assisting. They understand the need to continue with bandaging 23/24 hours a day until she follows up in February. At that time we will transition her back to her sleeve and glove. I did place xspan on digits today as digits are edematous. Provided with extra supplies. Encouraged patient to do shoulder stretches Home Exercise Program/Education: Assessment 52-year-old woman post left upper extremity surgery, 9 LVA sites. Patient and spouse independent with bandaging technique. Plan to follow-up in 3-4 weeks. Functional Goals and Timeframe's: Goal #1: Patient will be independent and compliant with compression to manage edema. Goal #1 Date: 04/28/23 Goal #1 Status: Progressing Plan TREATMENT PLAN Number of Visits: up to 5 visits Frequency: 1 time every 2-4 weeks Plan: Continue with current plan Plan Comments: Follow-up in 3-4 weeks, transition over to sleeve and glove. Bio impedance and circumferential measures Treatment interventions may include: Therapeutic exercise, Therapeutic functional activity Daytime Compression Program: Daytime compression bandaging, Compression bra Nighttime Compression Program: Nighttime compression bandaging OT: Time Spent with Patient Therapeutic Interventions Therapeutic Activity (min): 41 min Time Tracking Total Timed Units (min): 41 min Total Treatment Time (min): 41 min Jeaneth Llamas O.T., CLT-KATHY documented in this encounter Plan of Treatment Not on file documented as of this encounter Visit Diagnoses Diagnosis Lymphedema Post Mastectomy- Primary documented in this encounter Additional Health Concerns Infection Onset Date Last Indicated Resolved Time Protective Environment 09/04/2022 09/04/2022 Assessment Noted Time PHQ-9 Depression Total Score: 12 023 10:14 AM CDT documented as of this encounter Care Teams Flight Teacher Relationship Specialty Start Date End Date None Reported, Pcp PCP - General Family Medicine 02/09/23 documented as of this encounter
--- OUTSIDE RECORDS SUMMARY | 2023-06-19 00:51 | XMS_ITS | Encounter Summary ---
Author Name Unknown Organization [facility] Address [address] [place] [address] Care Team Providers Care Telemarketing Sales Representative Name Role Phone None Reported, Pcp Primary Care Provider Unavail able Reason for Visit * Auth/Cert (Routine) Specialty Diagnoses / Procedures Referred By aCssidy gutierrez Referred To Contact Diagnoses Lymphedema Post Mastectomy Malignant neoplasm of upper-outer quadrant of left female breast (HCC) Lymphedema Post Mastectomy [I97.2] Procedures DE UNLISTED PROC HEMIC/LYMPHATIC DE INJ PROCEDURE LYMPHANGIOGRAPHY BYPASS LYMPHOVENOUS/BYPASS LYMPHATICOVENOUS, left arm and breast/chest, proceed as indicated Intraoperative ICG Lymphography, left arm, chest/breast area Microbubble CEUS lymphatic mapping left arm, breast/chest Referral ID Status Reason Start Date Expiration Date Visits Re quested Visits Authorized [id number] 1 1 Encounter Details Date Type Department Care Team (Late st Contact Info) Description 02/09/2023 8:47 AM CDT Anesthesia Event [facility] [address] [place] [phone] Anabela Lou M.D., M.H.A. [address] [place] [phone] Sb Fowler M.D. [address] [place] [phone] Anesthesia Record Procedure Summary Procedure Name Responsible Anesthesiologist Anesthesia Start Time Anesthesia Stop Time BYPASS LYMPHOVENOUS, BYPASS LYMPHATICOVENOUS, left arm proceed as indicated. (Left) Anabela Lou M.D., M.H.A. 02/09/23 0847 02/09/23 1704 Events Date Time Event Comment 02/09/2023 0800 0847 An Start Machine/Equipme nt Checked Infection Precautions Followed Procedure/Site Verified NPO Status Verified Supine Standard ASA Monitors Applied 0857 An Induction 0900 An Intubation 0903 Turnover to Proceduralist 0922 Anes CS Handoff I, Suzi avalos APRN, BILLING TYPIST, attest that I have reconciled the controlled substances and that I have reviewed all the significant information with the next anesthesia provider assuming care of this patient. 0938 Anes CS Handoff I, Donovan Mirza APRN, BILLING TYPIST, attest that I have reconciled the controlled substances and that I have reviewed all the significant information with the next anesthesia provider assuming care of this patient. 1113 Proc Start 1305 Anes CS Handoff I, Suzi avalos APRN, BILLING TYPIST, attest that I have reconciled the controlled substances and that I have reviewed all the significant information with the next anesthesia provider assuming care of this patient. 1322 Anes CS Handoff I, Kerry taylor, CARLY, BILLING TYPIST, DNAP, attest that I have reconciled the controlled substances and that I have reviewed all the significant information with the next anesthesia provider assuming care of this patient. 1427 Anes CS Handoff I, Suzi avalos APRN, BILLING TYPIST, attest that I have reconciled the controlled substances and that I have reviewed all the significant information with the next anesthesia provider assuming care of this patient. 1642 Proc Fin 1647 Turnover to ANE Staff 1649 Airway Removal Criteria Met 1649 Extubation/Airway Removed 1653 an stop data 1704 An End I completed my handoff to the receiving staff during which we 1. Identified the patient 2. Identified the responsible provider 3. Reviewed the pertinent medical history 4. Discussed the surgical course 5. Reviewed intra-op anesthesia management and issues during anesthesia 6. Set expectations for post-procedure period 7. Allowed opportunity for questions and acknowledgement of understanding. Meds Name Total fentanyl injection 50 mcg/mL 150 mcg lidocaine 2% (mg) injection 40 mg rocuronium 10 mg/mL injection 70 mg phenylephrine 100 mcg/mL injection 400 m cg ePHEDrine PF 5 mg/mL syringe injection 3 0 mg ondansetron 4 mg/2 mL injection 4 mg sugammadex 100 mg/mL injection 180 mg glycopyrrolate 0.2 mg/mL injection 0.2 m g propofol 10 mg/mL injection 170 mg clindamycin in D5W IVPB 900 mg (CLEOCIN) 1,800 mg dexAMETHasone (DECADRON) injection 4 mg/ mL 8 mg haloperidol 5 mg/mL injection 1 mg ketamine 10 mg/mL injection 40 mg artificial tears 0.5% ophthalmic solutio n 2 drop fosaprepitant in NaCl 0.9% IVPB 150 mg ( EMEND) 150 mg Lactated Ringers Free Drip 1,300 mL lactated ringers free drip 1,200 mL * Agents No agents on file. * Blood No blood administrations on file. Lines, Drains, and Airways Type Details Placement Removal Wound 11/12/21; 1522; Incision; Axilla; Left; dermabond, steri strips, guaze, wrap 11/12/21 1522 by Celeste Stanley R.N. Wound 02/09/23; 1134; N; Incision; Hand; Left 02/09/23 1134 by Anthony Mcrae R.N. Wound 02/09/23; 1350; N; Incision; Wrist; Left, Lower, Posterior 02/09/23 1350 by Anthony Mcrae R.N. Wound 02/09/23; 1443; N; Incision; Arm; Anterior, Left, Lower 02/09/23 1443 by Anthony Mcrae RYeN. Wound 02/09/23; 1544; Incision; Arm; Left, Lower, Posterior, Proximal 02/09/23 1544 by Anthony Mcrae RYeNYe Peripheral IV Placement Date: 02/09/23; Placement Time: 753; Catheter Size: 20 G; Orientation: Right; Location: Antecubital; Removal Date: 02/10/23; Removal Time: 08; Removal Reason: Patient discharged 02/09/23 0754 by Willam Wilcox RYeNYe 02/10/23 0843 by Lizette Madrid RJuan ETT Placement Date: 02/09/23; Placement Time: 899 (created via procedure documentation); Mask Ventilation: Easy mask; Technique: Video laryngoscopy; Type: Standard ETT; Single Lumen Tube Size: 7 mm; Cuffed: Yes; Location: Oral; Grade View: Grade 1; Insertion Attempts: 1; Placement Verification: Bilateral breath sounds, Positive ETCO2, Symmetrical chest wall movement; Removal Date: 02/09/23; Removal Time: 164802/09/23899 by Suzi Lord APRN, CRNA 02/09/231648 by Lizeth Rocha APRN, CRNA, MNA Indwelling Urinary Catheter Placement Date: 02/09/23; Placement Time: 910; Inserted by: Marcus Vega; Type: Non-latex; Size: 16 Fr.; Balloon Size: 10 mL; Urine Returned: Yes; Removal Date: 02/09/23; Removal Time: 1646; Removal Reason: Per order 02/09/23 09 by Anthony Mcrae, R.NYe 02/09/231646 by Anthony Mcrae, R.NYe Peripheral IV Placement Date: 02/09/23; Placement Time: 918; Catheter Size: 18 G; Orientation: Left; Location: Foot; Removal Date: 02/09/23; Removal Time: 1858; Removal Reason: Per order 02/09/23918 by Suzi Lord APRN, KEYLA 02/09/231858 by Mariana Mclean documented in this encounter Social History Tobacco [...] How often do you attend chur or buddhism services? More than 4 times per year 06/29/2022 Do you belong to any clubs o r organizations such as jehovah's witness groups, unions, [...] Answer Date Recorded PHQ-2 Score 2 08/13/2022 [facility] - Occupational Stress [...] place to sleep or slept in a jail (including now)? No 06/29/2022 Depression Answer Date [...] documented as of this encounter OR Notes * Anesthesia Postprocedure Evaluation - Deandra Lozano M.D. - 02/09/2023 6:09 PM CDT Patient: Joceline Uribe Procedure Summary Date: 02/09/23 Room / Location: [place] [address] / [facility] [place], [place] Anesthesia Start: 08 Anesthesia Stop: 170 Procedures: BYPASS LYMPHOVENOUS, BYPASS LYMPHATICOVENOUS, left arm proceed as indicated. (Left) Microbubble CEUS lymphatic mapping left arm (Left) Intraoperative ICG Lymphography, left arm. (Left) Diagnosis: Lymphedema Post Mastectomy (Lymphedema Post Mastectomy [I97.2].) Providers: Eber Saravia M.D. Responsible Provider: Anabela Lou M.D., M.H.A. Anesthesia Type: general ASA Status: 3 Anesthesia Type: general Last vitals Vitals Value Taken Time BP 107/71 02/09/23 1800 Temp 37.2 ??C 02/09/23 1753 Pulse 81 02/09/23 1809 Resp 15 02/09/23 1809 SpO2 92 % 02/09/23 1809 Vitals shown include unvalidated device data. Please reference Vitals flowsheet for most recent vital signs. Anesthesia Post Evaluation Patient Disposition: general care unit Cardiovascular status: hemodynamics (HR & BP) acceptable Respiratory status: patent airway with spontaneous effort Temperature: normothermic Oxygen requirements: room air Level of consciousness: awake Pain score: pain adequately controlled and/or at baseline Post Op nausea/vomiting: none Hydration status: euvolemic * Anesthesia Procedure Notes - Suzi Lord APRN, CRNA - 02/09/2023 9:42 AM CDTAssociated Order(s): Airway Airway Date/Time: 02/09/2023 9:00 AM Performed by: Suzi Lord APRN, CRNA Authorized by: Sb Fowler M.D. Patient location during procedure: OR / Procedure Area PROCEDURE DETAILS: Mask difficulty assessment: easy mask Final airway type: video laryngoscope Laryngeal Manipulation: no Final best view of glottic structures - Cormack/Lehane Score: grade 1 ETT location: oral VL device: glide scope Lincroft scope blade size: 3 Tube size: 7 ETT distance at teeth/gum: 20 Oral tube type: standard ETT Cuffed: yes Leak Test Performed: no Number of attempt to successful placement: 1 Airway confirmation: bilateral breath sounds, positive ETCO2 and bilateral chest rise Other previous techniques attempted: none PRE PROCEDURE DETAILS: Pre evaluation for airway management: procedure Urgency: elective Preop assessment of probable difficulty: no difficulty anticipated Preoxygenation: bag valve mask SEDATION / ANESTHESIA Anesthesia method: anesthesia POST PROCEDURE DETAILS: Procedure outcome: successful Airway event: no complications * Anesthesia Preprocedure Evaluation - Sb Fowler M.D. - 02/09/2023 7:59 AM CDT Preprocedure Anesthesia & H&P Assessment Procedure Summary Date/Time: 02/09/23 0810 Procedures: BYPASS LYMPHOVENOUS, BYPASS LYMPHATICOVENOUS, left arm, breast, chest, proceed as indicated. (Left) Microbubble CEUS lymphatic mapping left arm, breast, chest. (Left) Intraoperative ICG Lymphography, left arm. (Left) Diagnosis: Lymphedema Post Mastectomy [I97.2] Pre-op diagnosis: Lymphedema Post Mastectomy [I97.2]. Location: [place] [address] / [facility] [place], [place] Providers: Eber Saravia M.D. Pertinent components of the patient's history including current problem list, medical history, surgical history, family history, social history, medications and allergies were reviewed. Present illness and pre-op diagnosis were confirmed. The planned surgery / procedure was verified with the patient / legal guardian. 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) Other (+) Lymphedema Post Mastectomy OBJECTIVE PHYSICAL EXAMINATION Airway (HEENT) Mallampati: II TM Distance: >3 FB Neck ROM: Full Mouth Opening: >3 cm Cardiovascular Rhythm: Regular Rate: Normal Cardiovascular Assessment: cardiovascular normal Functional Capacity: >4 METS Pulmonary Pulmonary Assessment: Clear General / Constitutional Constitutional Assessment: Normal General State of Health:: healthy appearing Very anxious Neurological Neurologic Assessment: alert and alert and oriented x 3 Dental Dental Assessment: dentition intact ASSESSMENT / PLAN ANESTHESIA PLAN ASA: 3 Anesthesia Plan: general Patient seen and allergies reviewed, anesthesia plan and risks discussed directly with patient /legal guardian or through an tobacco feeder catcher. The use of blood products not discussed Approval to Proceed: approved for anesthesia documented in this encounter Plan of Treatment Not on file documented as of this encounter Procedures Procedure Name Priority Date/Time Associated Diagnosis Comments LDA ANE ENDOTRACHEAL AIRWAY Routine 02/09/2023 9:00 AM CDT documented in this encounter Results * LDA ANE ENDOTRACHEAL AIRWAY (02/09/2023 9:00 AM CDT) Narrative Suzi Lord APRN, CRNA - 02/09/2023 9:00 AM CDT Suzi Lord APRN, CRNA ? 02/09/2023 ??9:43 AM Airway Date/Time: 02/09/2023 9:00 AM Performed by: Suzi Lord APRN, CRNA Authorized by: Sb Fowler M.D. ?? Patient location during procedure: OR / Procedure Area PROCEDURE DETAILS: Mask difficulty assessment: easy mask Final airway type: video laryngoscope Laryngeal Manipulation: no ?? Final best view of glottic structures - Cormack/Lehane Score: grade 1 ETT location: oral VL device: glide scope Lincroft scope blade size: 3 Tube size: 7 ETT distance at teeth/gum: 20 Oral tube type: standard ETT Cuffed: yes Leak Test Performed: no ?? Number of attempt to successful placement: 1 [...] outcome: successful ?? Airway event: no complications Sb Fowler M.D. ANESTHESIA ORDERABLE S documented in this encounter Visit Diagnoses Not on filedocumented in this encounter Administered Medications Inactive Administered Medications - up to 3 most recent administrations Medication Order MAR Action Action Date Dose Rate Site artificial tears(hypromellose) 0.5 % ophthalmic solution (ISOPTO TEARS) both eyes, As needed, Starting on Thu02/09/23 at 0900, Anesthesia Intra-op Given 02/09/2023 9:00 AM CDT 2 drops clindamycin in D5W IVPB 900 mg (CLEOCIN) 900 mg, intravenous, at 100 mL/hr, Administer over 30 Minutes, Once, On Thu02/09/23 at 0830, For 1 dose, Intra-Op, Administer within 1 hour prior to surgical incisi, Indications: Prophylaxis, surgical Given 02/09/2023 3:08 PM CDT 900 mg Given 02/09/2023 9:10 AM CDT 900 mg dexAMETHasone injection (DECADRON) intravenous, As needed, Starting on Thu02/09/23 at 0901, Anesthesia Intra-op Given 02/09/2023 9:01 AM CDT 8 mg ePHEDrine (PF) injection intravenous, As needed, Starting on Thu02/09/23 at 0919, Anesthesia Intra-op Given 02/09/2023 11:50 AM CDT 5 mg Given 02/09/2023 10:37 AM CDT 5 mg Given 02/09/2023 9:21 AM CDT 10 mg fentaNYL injection (SUBLIMAZE) intravenous, As needed, Starting on Thu02/09/23 at 0857, Anesthesia Intra-op Given 02/09/2023 12:19 PM CDT 50 mcg Given 02/09/2023 8:57 AM CDT 100 mcg fosaprepitant in NaCl 0.9% IVPB 150 mg (EMEND) 150 mg, intravenous, at 500 mL/hr, Administer over 30 Minutes, Once, On Thu02/09/23 at 0815, For 1 dose, Pre-Op, Incompatible with solutions containing divalent cations (calcium, magnesium) including lactated Ringer's solution., Restriction Criteria (Pharmacy will review and approve if criteria met): Use in the perioperative setting Given 02/09/2023 3:07 PM CDT 150 mg glycopyrrolate injection (ROBINUL) intravenous, As needed, Starting on Thu02/09/23 at 1152, Anesthesia Intra-op Given 02/09/2023 11:52 AM CDT 0.2 mg haloperidol lactate injection (HALDOL) intravenous, As needed, Starting on Thu02/09/23 at 0901, Anesthesia Intra-op Given 02/09/2023 9:01 AM CDT 1 mg ketamine injection (KETALAR) intravenous, As needed, Starting on Thu02/09/23 at 0926, Anesthesia Intra-op Given 02/09/2023 4:32 PM CDT 10 mg Given 02/09/2023 3:09 PM CDT 10 mg Given 02/09/2023 11:40 AM CDT 10 mg Lactated Ringer's intravenous, Continuous Infusion: Per Instructions PRN, Starting on Thu02/09/23 at 0857, Anesthesia Intra-op New Bag 02/09/2023 12:18 PM CDT New Bag 02/09/2023 8:57 AM CDT Lactated Ringer's intravenous, Continuous Infusion: Per Instructions PRN, Starting on Thu02/09/23 at 0917, Anesthesia Intra-op New Bag 02/09/2023 2:18 PM CDT New Bag 02/09/2023 9:17 AM CDT lidocaine (PF) (cardiac) injection intravenous, As needed, Starting on Thu02/09/23 at 0857, Anesthesia Intra-op Given 02/09/2023 8:57 AM CDT 40 mg ondansetron (PF) injection (ZOFRAN) intravenous, As needed, Starting on Thu02/09/23 at 1632, Anesthesia Intra-op Given 02/09/2023 4:32 PM CDT 4 mg phenylephrine injection intravenous, As needed, Starting on Thu02/09/23 at 0943, Anesthesia Intra-op Given 02/09/2023 2:55 PM CDT 100 mcg Given 02/09/2023 11:50 AM CDT 100 mcg Given 02/09/2023 11:28 AM CDT 50 mcg propofoL injection (DIPRIVAN) intravenous, As needed, Starting on Thu02/09/23 at 0857, Anesthesia Intra-op Given 02/09/2023 8:57 AM CDT 170 mg rocuronium injection (ZEMURON) intravenous, As needed, Starting on Thu02/09/23 at 0857, Anesthesia Intra-op Given 02/09/2023 8:57 AM CDT 70 mg sugammadex injection (BRIDION) intravenous, As needed, Starting on Thu02/09/23 at 1633, Anesthesia Intra-op Given 02/09/2023 4:33 PM CDT 180 mg documented in this encounter Additional Health Concerns Infection Onset Date Last Indicated Resolved Time Protective Environment 09/04/2022 09/04/2022 Assessment Noted Time PHQ-9 Depression Total Score: 12 08/13/ 023 10:14 AM CDT documented as of this encounter Care Teams Telemarketing Sales Representative Relationship Specialty Start Date End Date None Reported, Pcp PCP - General Family Medicine 02/09/23 documented as of this encounter
--- OUTSIDE RECORDS SUMMARY | 2023-06-19 00:51 | XMS_ITS | Encounter Summary ---
Author Name Unknown Organization [facility] Address [address] [place] [address] Care Team Providers Care Retail Planner Name Role Phone Unavailable Primary Care Provider Unavailabl e Reason for Referral * Occupational Therapy (Routine) - Closed Specialty Diagnoses / Procedures Referred By Cassidy gutierrez Referred To Contact Diagnoses Lymphedema Post Mastectomy Procedures OT Evaluate and treat Rst Pmr Roei [address] [place] [address] [facility] Referral ID Status Reason Start Date Expiration Date Visits Re quested Visits Authorized [id number] Closed 07/29/2022 07/30/2023 1 1 Reason for Visit * Physical Therapy (Routine) - Closed Specialty Diagnoses / Procedures Referred By Cassidy gutierrez Referred To Contact Diagnoses Lymphedema Post Mastectomy Procedures PT or OT eval and treat (first available) Eber Saravia M.D. [address] [place] [phone] [facility] Referral ID Status Reason Start Date Expiration Date Visits Re quested Visits Authorized [id number] Closed 07/29/2022 07/30/2023 1 1 Encounter Details Date Type Department Care Team (Latest Contact Info) Description 01/28/2023 1:00 PM CDT Comprehensive Visit Department of Physical Medicine and Rehabilitation in [place], [place] [address] [place] [address] Eber Saravia M.D. [address] [place] [phone] Agnes Aggawral P.T., D.P.TYe [address] [place] [address] Lymphedema Post Mastectomy Social History Tobacco Use [...] often do you attend chur ch or islam services? More than 4 times per year 06/29/2022 Do you belong to any clubs o r organizations such as protestant groups, unions, fraternal [...] Answer Date Recorded PHQ-2 Score 2 08/13/2022 [facility] of Occupat ional Health - Occupational Stress [...] documented as of this encounter Consult Notes * Agnes Aggarwal P.T., D.P.T. - 01/28/2023 1:00 PM CDT Physical Therapy Lymphedema Outpatient Evaluation and Treatment Patient's Name: Joceline Uribe Referring Provider: Eber Saravia M.D. Rehab Diagnosis: 1. Lymphedema Post Mastectomy Reason for Referral: PT evaluate and treat LVA pre op History of Present Illness: Patient presents in setting of pre LVA. Surgery is scheduled for February 09 2023. She has history for lumpectomy, sentinel lymph node biopsy in April 2021. She then underwent axillary lymph node dissection and lymphovenous bypass in October 2021. Onset Date: 01/28/23 Payor: [employer] / Plan: [employer] [facility] [employer] / Product Type: HMO / Total Visit Count: 1 SUBJECTIVE Joceline Uribe is a 52 y.o. female who presents to therapy for evaluation and treatment forLVA pre op. Her symptoms consist of upcoming LVA, baseline lymphedema L UE/breast. Activity and Prior Treatment Current Home Program: daytime sleeve, gauntlet. Compression bra with insert. Previous Treatment: as above. Patient Comments: Patient states since taking off her sleeve her edema has actually reduced today. She was starting to get a buildup in her hand and when she remove the sleeve the buildup went away. Patient/Caregiver Goals: Pre op measurements. 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) Past Surgical History: Procedure Laterality Date BYPASS LYMPHOVENOUS/BYPASS LYMPHATICOVENOUS Left 11/12/2021 Procedure: LEFT AXILLARY BYPASS LYMPHOVENOUS, BYPASS LYMPHATICOVENOUS.; Surgeon: Eber Saravia M.D.; Location: [facility] OR CERVICAL FUSION DISSECTION LYMPH NODE - AXILLARY Left 11/12/2021 Procedure: LEFT AXILLARY LYMPH NODE DISSECTION.; Surgeon: Jennifer Berger D.O.; Location: [facility] OR LUMPECTOMY BREAST WITH SENTINEL NODE BIOPSY Left 04/25/2021 LYMPHATIC MAPPING Left 11/12/2021 Procedure: LYMPHATIC MAPPING; Surgeon: Jennifer Berger D.O.; Location: [facility] OR OTHER lymphatic sac surgery for Meniere's OTHER N/A 11/12/2021 Procedure: Intraoperative upper extremity ICG lymphography mapping.; Surgeon: Eber Saravia M.D.; Location: [facility] OR SINUS SURGERY 11/12/2022 SPINE SURGERY 12/10/2016 TONSILLECTOMY TOTAL HYSTERECTOMY OBJECTIVE PHYSICAL EXAM Right Upper Extremity 01/28/2023 10 cm 18 20 cm 16.5 30 cm 25 40 cm 31 50 cm 33 60 cm 34.5 Lymph Volume (L) 2932.29 ml Left Upper Extremity 01/28/2023 10 cm 18 20 cm 20 30 cm 26.5 40 cm 32 50 cm 34 60 cm 32.5 Lymph Volume (L) 3150.07 ml Upper Extremity Physical Exam: Shoulder Affected Left : Wfl. Posture: Normal CHEST WALL: Not assessed. AXILLA: Not assessed. Affected Extremity: left Edema stage 1 late. Firmness noted volar forearm. +1 pitting dorsal hand. SOZO: 22.3 L UE TREATMENT Therapeutic activity: Therapist assessed patient's current home compression program. I educated in using short stretch bandages postop per Dr Man Protocol (to be on 23 hours/day with elevation). I demonstrated how to bandage arm using cotton for skin protection followed by 2 short stretch wraps. Educated in proper compression gradient tightest distally loosening proximally. Patient and feel comfortable this. Home Exercise Program/Education: As above. Assessment Patient presents for pre op measurements for upcoming LVA. Therapist educated and demonstrated proper bandaging technique today. She will follow up post op. Rehab Potential: Ms. Uribe has good potential to achieve established physical therapy therapy goals within the time frame outlined below, provided she actively participates in her physical therapy therapy treatment plan and home program. Complicating Factors: Comorbid Conditions: Cancer, Neurodegenerative disorder Personal Factors: Number of Examination Elements (PT): 3 Clinical Presentation (PT): Evolving Clinical Decision Making (PT): Low Functional Goals and Timeframes: Goal #1: Patient will be independent and compliant with compression to manage edema. Goal #1 Date: 04/28/23 The severity of Ms. Uribe's functional limitation will be re-assessed within the next 5 visits. Plan Ms. Uribe was educated regarding evaluative findings, diagnosis, prognosis, potential risks and benefits of rehabilitation interventions. A collaborative effort was used to establish goals and plan of care. She was informed of her right to make decisions regarding her care, including refusal of examination or treatment or selection of therapy services from another provider if desired. The treatment plan may be progressed or modified based upon her response to treatment. Treatment Plan: Start of Plan of Care: 01/28/2023 Number of Visits: up to 5 visits Frequency: 1 time every 2-4 weeks Plan: Plan of care initiated Plan Comments: Follow-up postop. Treatment interventions may include: Therapeutic exercise, Therapeutic functional activity, Self-care/home management, Manual therapy Daytime Compression Program: Gauntlet, Arm sleeve, Daytime compression bandaging, Compression bra Arm sleeve and gauntlet currently. After surgery she will be in bandaging. Nighttime Compression Program: Nighttime compression bandaging PT: Time Spent with Patient Evaluations PT Eval - Low Complexity: 40 min Therapeutic Interventions Therapeutic Activity (min): 12 min Time Tracking Total Timed Units (min): 12 min Total Treatment Time (min): 52 min Mina SenaT., D.P.T. documented in this encounter Plan of [...]
--- OUTSIDE RECORDS SUMMARY | 2023-06-19 00:51 | XMS_ITS | Encounter Summary ---
Author Name Unknown Organization [facility] Address [address] [place] [address] Care Team Providers Care Clean Room Assembler Name Role Phone None Reported, Pcp Primary Care Provider Unavail able Encounter Details Date Type Department Care Team (Late st Contact Info) Description 02/12/2023 Ancillary Procedure Department of Plastic and Reconstructive [...] often do you attend chur ch or zoroastrianism services? More than 4 times per year 06/29/2022 Do you belong to any clubs o r organizations such as gnosticist groups, unions, fraternal [...] Answer Date Recorded PHQ-2 Score 2 08/13/2022 [facility] of Occupat ional Health - Occupational [...] or slept in a fci (including now)? No 06/29/2022 Depression Answer Date [...] PLASTIC AND RECON SURGERY IMAGE EXAM Routine 02/12/2023 12:00 AM CDT documented in this encounter Results * Arms Lymphaticovenous Bypass-Plastic And Recon Surgery Image Exam (02/12/2023 12:00 AM CDT) Narrative [facility] - 02/12/2023 1:54 PM CDT This order has been created [...] documented as of this encounter Care Teams Clean Room Assembler Relationship Specialty Start Date End Date None Reported, Pcp PCP - General Family Medicine 02/09/23 documented as of this encounter
--- OUTSIDE RECORDS SUMMARY | 2023-06-19 00:51 | XMS_ITS | Encounter Summary ---
Author Name Unknown Organization [facility] Address [address] [place] [address] Care Team Providers Care Mine Engineering Manager Name Role Phone None Reported, Pcp Primary Care Provider Unavail able Reason for Referral * Outpatient (Routine) - Closed Specialty Diagnoses / Procedures Referred By Cassidy gutierrez Referred To Contact Diagnoses Lymphedema Post Mastectomy Procedures US Lymphatic Mapping with Contrast Eber Saravia M.D. [address] [place] [phone] [facility] Referral ID Status Reason Start Date Expiration Date Visits Re quested Visits Authorized [id number] Closed 07/29/2022 07/30/2023 1 1 Reason for Visit * Auth/Cert (Routine) Specialty Diagnoses / Procedures Referred By Cassidy gutierrez Referred To Contact Diagnoses Lymphedema Post Mastectomy Malignant neoplasm of upper-outer quadrant of left female breast (HCC) Lymphedema Post Mastectomy [I97.2] Procedures OK UNLISTED PROC HEMIC/LYMPHATIC OK INJ PROCEDURE LYMPHANGIOGRAPHY BYPASS LYMPHOVENOUS/BYPASS LYMPHATICOVENOUS, left arm and breast/chest, proceed as indicated Intraoperative ICG Lymphography, left arm, chest/breast area Microbubble CEUS lymphatic mapping left arm, breast/chest Referral ID Status Reason Start Date Expiration Date Visits Re quested Visits Authorized [id number] 1 1 Encounter Details Date Type Department Care Team (Latest Contact Info) Description 02/09/2023 7:26 AM CDT - 02/09/2023 11:59 PM CDT Hospital Encounter Department of Radiology, [facility], in [place], [place] [address] [place] [address] Eber Saravia M.D. [address] [place] [address] Lymphedema Post Mastectomy Discharge Disposition: Home or Self Care Social History Tobacco Use Types Packs/Day Years [...] often do you attend chur ch or bahai services? More than 4 times per year 06/29/2022 Do you belong to any clubs o r organizations such as orthodoxy groups, unions, fraternal or athletic groups, or [...] Answer Date Recorded PHQ-2 Score 2 08/13/2022 [facility] of Occupat ional Health - Occupational Stress [...] or slept in a correction (including now)? No 06/29/2022 Depression Answer Date [...] Sig Dispensed Refills Start Date End Date acetaminophen (TYLENOL) 500 mg tablet Take 2 tablets (1,000 mg total) by mouth every 6 (six) hours as needed for pain. 0 02/10/2023 cholecalciferol (VITAMIN D3) 50 mcg (2,000 Unit) capsule Take 50 mcg by mouth daily. 0 11/25/2021 cranberry 400 mg capsule Take 400 mg by mouth daily. 0 02/18/2022 ibuprofen (ADVIL,MOTRIN) 200 mg tablet Take 2 tablets (400 mg total) by mouth every 6 (six) hours as needed for pain. 0 02/10/2023 L.acid/L.casei/B.bif/B. luís/FOS (PROBIOTIC BLEND ORAL) Take 1 tablet by mouth daily. 0 11/25/2021 levothyroxine (SYNTHROID, LEVOTHROID) 75 mcg tablet Take 75 mcg by mouth every morning before breakfast. 0 03/19/2021 loperamide (IMODIUM A-D) 2 mg capsule Take 2 mg by mouth as needed for diarrhea. 0 gilamwjo-vla-cogil acid-biotin (Hair,Skin and Nails,FA-biotin,) 133.3 mcg- 1,666.7 mcg capsule Take 1 capsule by mouth daily. 0 PreviDent 5000 Booster Plus 1.1 % paste dental paste Apply 1 application to the mouth or throat daily. 0 12/02/2021 tamoxifen (NOLVADEX) 20 mg tablet Take 20 mg by mouth daily. 0 10/11/2021 triamcinolone (KENALOG) 0.1 % cream as needed. 0 09/06/2021 Verzenio 150 mg tablet Take 150 mg by mouth as directed. Alternating days 1 daily with 1 twice daily 0 06/11/2022 documented as of this encounter Plan of Treatment Not on file documented as of this encounter Procedures Procedure Name Priority Date/Time Associated Diagnosis Comments US LYMPHATIC MAPPING WITH CONTRAST RAD - Routine (most inpatients and all outpatients) 02/09/2023 10:06 AM CDT Lymphedema Post Mastectomy documented in this encounter Results * US Lymphatic Mapping with Contrast (02/09/2023 10:06 AM CDT) Anatomical Region Laterality Modality Upper Extremity, Ultrasound RST LOS, Ultrasound ARZ LOS, Ultrasound FLA LOS, Lower Extremity Ultrasound, U ltrasound 02/09/2023 4:39 PM CDT Impressions 02/09/2023 4:40 PM CDT Contrast-enhanced ultrasound lymphatic mapping performed. Narrative 02/09/2023 4:40 PM CDT EXAM: US lymphatic mapping with contrast left upper extremity COMPARISON: ?? FINDINGS: Intraoperative contrast-enhanced ultrasound lymphatic mapping of the left upper extremity was performed. Lymphatic candidates were identified along the extremity. These were marked on the skin with indelible ink. Adjacent comparable-sized veins were identified and marked on the skin with indelible ink. Discussed with Dr. Saravia's operative team. Procedure Note Kourtney Joshi M.D. - 02/09/2023 EXAM: US lymphatic mapping with contrast left upper extremity COMPARISON: FINDINGS: Intraoperative contrast-enhanced ultrasound lymphatic mapping ofthe left upper extremity was performed. Lymphatic candidates were identified along the extremity.These were marked on the skin with indelible ink. Adjacent comparable-sized veins were identifiedand marked on the skin with indelible ink. Discussed with Dr. Saravia's operative team. IMPRESSION: Contrast-enhanced ultrasound lymphatic mapping performed. Eber SMITH US PROCEDURES documented in this encounter Visit Diagnoses Diagnosis Lymphedema Post Mastectomy documented in this encounter Administered Medications Inactive Administered Medications - up to 3 most recent administrations Medication Order MAR Action Action Date Dose Rate Site sulfur hexafluoride microspheres injection (LUMASON) As needed, Starting on 02/09/23 at 1007, Intra-Op Given 02/09/2023 10:07 AM CDT 4.8 mL documented in this encounter Additional Health Concerns Infection Onset Date Last Indicated Resolved Time Protective Environment 09/04/2022 09/04/2022 Assessment Noted Time PHQ-9 Depression Total Score: 12 08/13/ 023 10:14 AM CDT documented as of this encounter Care Teams Mine Engineering Manager Relationship Specialty Start Date End Date None Reported, Pcp PCP - General Family Medicine 02/09/23 documented as of this encounter
--- OUTSIDE RECORDS SUMMARY | 2023-06-19 00:51 | XMS_ITS | Encounter Summary ---
Author Name Unknown Organization [facility] Address [address] [place] [address] Care Team Providers Care Farm Equipment Maintenance Supervisor Name Role Phone Unavailable Primary Care Provider Unavailabl e Reason for Visit * Outpatient (Routine) - Closed Specialty Diagnoses / Procedures Referred By Cassidy gutierrez Referred To Contact Anesthesiology Diagnoses Lymphedema Post Mastectomy Eber Saravia M.D. [address] [place] [phone] [facility] Referral ID Status Reason Start Date Expiration Date Visits Re quested Visits Authorized [id number] Closed 07/29/2022 07/30/2023 1 1 Encounter Details Date Type Department Care Team (Latest Contact Info) Description 01/28/2023 10:30 AM CDT Comprehensive Visit Preoperative Evaluation Center in [place], [place] [address] [place] [phone] Eber Saravia M.D. [address] [place] [phone] Reagan Vásquez M.D. 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 More than 4 times per year 06/29/2022 Do you belong to any clubs o r organizations such as yarsani groups, unions, fraternal or athletic groups, or [...] Answer Date Recorded PHQ-2 Score 2 08/13/2022 [facility] of Occupat ional Health - Occupational [...] slept in a senior living (including now)? No 06/29/2022 Depression Answer Date [...] Sign Reading Time Taken Comments Blood Pressure 99/68 01/28/2023 10:25 AM CDT Pulse 73 01/28/2023 10:25 AM CDT Temperature 36.1 ??C (97 ??F) 01/28/2023 10:25 AM CDT Respiratory Rate - - Oxygen Saturation 97% 01/28/2023 10:25 AM CDT Inhaled Oxygen Concentration - - Weight 86.7 kg (191 lb 2.2 oz) 01/28/2023 10:25 AM CDT Height 166 cm (5' 5.35) 01/28/2023 10:25 AM CDT Body Mass Index 31.46 01/28/2023 10:25 AM CDT documented in this encounter H&P Notes * Reagan Vásquez M.D. - 01/28/2023 10:30 AM CDT Images from the original note were not included. REASON FOR VISIT: Preoperative Medical Evaluation REFERRING PHYSICIAN: Eber Saravia M.D. 02/09/2023: FOCUSED ULTRASOUND; Eber Saravia M.D. Surgery Specific Risk Classification: Intermediate Risk SUBJECTIVE HISTORY OF PRESENT ILLNESS Joceline Uribe is a 52 y.o. female who is here for preanesthetic medical examination prior to the planned procedure as listed above. REVIEW OF SYSTEMS Neurological: Positive for numbness or shooting pain in hands, arms, legs, or feet and loss of balance or tendency to fall easily. The following systems were negative: Constitutional, Respiratory, Cardiovascular PRO Scores: 11/18/2021 01/21/2023 SpinePRO PROMIS-CAT: Anxiety 61 (moderate) PROMIS-CAT: Depression 51 (within normal limits) PROMIS-CAT: Pain interference 63 (moderate) PROMIS-CAT: Physical function 24 (severe dysfunction) 36 (moderate dysfunction) OBJECTIVE PHYSICAL EXAMINATION General/Constitutional Constitutional Assessment: Normal Airway (HEENT) Mallampati: III Neck ROM: Limited Mouth Opening: > 3 cm Dental Assessment: Dentition intact Cardiovascular Cardiovascular Assessment: Normal Pulmonary Pulmonary Assessment: Non labored Neurological Neurologic Assessment: Alert Musculoskeletal Gait: Antalgic Ambulate with: Cane and wheelchair Psychiatric Psychiatric Assessment: Calm ASSESSMENT / PLAN Anesthesia: Patient reports previous anesthesia related complications. Specifically, she has had difficulty with slow emergence as well as PONV following anesthesia. Overall, she did reasonably well following her last procedure at [facility] in October 2021. She reported having some slight difficulty with balance and mobility, which improved after her 1st time standing. She did well following her sinus surgery in October 2022 at an outside hospital, in which they minimized opiate use. Airway Hx: Easy GlideScope intubation, 10/2021 Lab: pending ECG: ECG 12 Lead Result Date: 01/28/2023 Normal sinus rhythm with sinus arrhythmia Low voltage QRS No previous ECGs available Reviewed by LUCI Good ECHO: 05/15/2021 Final Impressions: 1. Normal left ventricular size, normal wall thickness, normal global systolic function, calculatedEF of 64 %. 2. No significant valve disease detected. 3. Right ventricular cavity size is normal, global systolic RV function is normal. 4. Current global longitudinal strain is normal at -21 %. 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 She presents with persistent left arm lymphedema, scheduled for lymphatic reconstruction in 2 weeks. She continues to take tamoxifen, on hold for surgery, as well as Verzenio. Prior anesthesia has been complicated by PONV and delayed emergence. Overall she did well following her lymph node dissection in October 2021, with the exception of some initial difficulty with balance and mobility. She underwent sinus surgery in October 2022 at an outside hospital with no issues. She has difficult IV access in her right arm. Despite prior cervical fusion, her airway management has been straight forward with the use of a glide scope. No known cardiovascular disease or symptoms. 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 She is able to walk with the assistance of a cane. ECG today is unremarkable. He is undergoing laboratory testing today. No indication for additional evaluation. Reviewed NPO guidelines and perioperative medication recommendations. She is hopeful to stay in the hospital 1 night after her procedure, given the anticipated duration of her surgery, which I think is very reasonable. 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 #7 Hypothyroidism Treated, stable. Continue levothyroxine perioperatively. PATIENT EDUCATION: Reviewed Checklist for Surgical Patients [id number] rev 0920. Written and verbal instructions given on medication management before surgery. Reviewed instructions on avoiding aspirin, ibuprofen-containing medications, and supplements one week before surgery. Patient may take ac etaminophen as needed for pain. RECOMMENDATIONS: Patient medically optimized for planned procedure: Yes Further Recommendations: None Caprini Total Score: 8 The patient is at high risk for postoperative DVT or PE. Mechanical AND chemoprophylaxis are recommended at the time of procedure and during postoperative hospitalization, as well as chemoprophylaxisat the time of hospital discharge, unless there are contraindications or risk of bleeding outweighsbenefits of chemoprophylaxis. 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
--- OUTSIDE RECORDS SUMMARY | 2023-06-19 00:51 | XMS_ITS | Encounter Summary ---
Author Name Unknown Organization [facility] Address [address] [place] [address] Care Team Providers Care Dot Etcher Apprentice Name Role Phone None Reported, Pcp Primary Care Provider Unavail able Reason for Visit * Auth/Cert (Routine) Specialty Diagnoses / Procedures Referred By Cassidy gutierrez Referred To Contact Diagnoses Lymphedema Post Mastectomy Malignant neoplasm of upper-outer quadrant of left female breast (HCC) Lymphedema Post Mastectomy [I97.2] Procedures UT UNLISTED PROC HEMIC/LYMPHATIC UT INJ PROCEDURE LYMPHANGIOGRAPHY BYPASS LYMPHOVENOUS/BYPASS LYMPHATICOVENOUS, left arm and breast/chest, proceed as indicated Intraoperative ICG Lymphography, left arm, chest/breast area Microbubble CEUS lymphatic mapping left arm, breast/chest Referral ID Status Reason Start Date Expiration Date Visits Re quested Visits Authorized [id number] 1 1 Encounter Details Date Type Department Care Team (Late Contact Info) Description 02/09/2023 8:10 AM CDT - 02/09/2023 3:03 PM CDT Surgery [facility] [address] [place] [address] Eber Saravia M.D. [address] [place] [address] BYPASS LYMPHOVENOUS, BYPASS LYMPHATICOVENOUS, left arm proceed as indicated. Social History Tobacco Use Types Packs/Day Years [...] often do you attend chur ch or episcopalian services? More than 4 times per year 06/29/2022 Do you belong to any clubs o r organizations such as synagogue groups, unions, fraternal [...] Answer Date Recorded PHQ-2 Score 2 08/13/2022 [facility] [place] [facility] - Occupational Stress [...] or slept in a mcc (including now)? No 06/29/2022 Depression Answer Date [...] Sign Reading Time Taken Comments Blood Pressure 125/55 02/09/2023 8:35 AM CDT Pulse 65 02/09/2023 8:35 AM CDT Temperature 36.8 ??C (98.2 ??F) 02/09/2023 7:10 AM CD T Respiratory Rate 16 02/09/2023 8:35 AM CDT Oxygen Saturation 97% 02/09/2023 8:35 AM CDT Inhaled Oxygen Concentration - - Weight 86.4 kg (190 lb 7.6 oz) 02/09/2023 7:10 A M CDT Height 162 cm (5' 3.78) 02/09/2023 7:10 AM CDT Body Mass Index 32.92 02/09/2023 7:10 AM CDT documented in this encounter Discharge Summaries * Andra George M.D. - 02/10/2023 7:06 AM CDT DISCHARGE SUMMARY BRIEF OVERVIEW Hospital: [facility] Discharge Provider: Eber Saravia M.D. Primary Team: T Plastic Surgery - Rani Primary Care Providers: None Reported, Pcp (General) No address on file Primary Care Provider Phone Number: None Primary Care Provider Fax Number: None Admission Date: 02/09/2023 Discharge Date: 02/10/2023 PRINCIPAL DIAGNOSIS Lymphedema Post Mastectomy SECONDARY DIAGNOSES Principal Problem: Lymphedema Post Mastectomy Resolved Problems: * No resolved hospital problems. * Surgery Information This Encounter Past Procedures (02/10/2022 to Today) Date Procedures Providers Location 02/09/2023 BYPASS LYMPHOVENOUS, BYPASS LYMPHATICOVENOUS, left arm proceed as indicated., Microbubble CEUS lymphatic mapping left arm, Intraoperative ICG Lymphography, left arm. Eber Saravia M.D.Bustos Hemer, Samyd S, M.D. [facility] OR DISCHARGE DISPOSITION Home or Self Care [1] OUTPATIENT FOLLOW UP Scheduled Appointments 02/12/2023 7:30 AM Jeaneth Llamas O.T., [facility] Physical Medicine and Rehabilitation 02/12/2023 9:30 AM Marlen Ruvalcaba APRN, C.N.Mina, D.N.P. Plastic Surgery 03/11/2023 1:30 PM Marlen Ruvalcaba APRN, C.N.Mina, D.N.P. Plastic Surgery 03/11/2023 3:30 PM Agnes Aggarwal P.TYe, D.P.T. Physical Medicine and Rehabilitation For appointment details refer to your Patient Appointment Guide. TEST RESULTS PENDING AT DISCHARGE Pending Labs None DETAILS OF HOSPITAL STAY REASON FOR ADMISSION Lymphedema Post Mastectomy HOSPITAL COURSE Mrs. Joceline Uribe is status post left axillary lymph node dissection with Dr. Berger [facility] axillary lymphatico-venous bypass on 11/12/[address] Saravia. She presented on 02/09/2023 for elective lymphatico- venous bypass with intraoperative microbubble CEUS. Procedure was completed uneventfully and patient recovered initially in the PACU. Postoperatively in the PACU, she recovered well and was transferred to the floor for overnight observation. There, the pain was initially controlled with oral Tylenol and ibuprofen with prn oxycodone. The patient received perioperative antibiotics. The patient's diet was advanced as tolerated. Oncethe patient was able to pass urine and had return of bowel function, she was deemed appropriate fordismissal and dismissed in stable condition. CONSULTS ORDERED DURING THIS ADMISSION None CONDITION AT DISCHARGE stable Discharge instructions were provided to the patient and caregiver(s). Total time spent in discharge services today: ____30___ minutes. documented in this encounter Medications at Time [...] by mouth as needed for diarrhea. 0 csiqjddf-ery-vwsjy acid-biotin (Hair,Skin and Nails,FA-biotin,) 133.3 mcg- 1,666.7 [...] 0 06/11/2022 documented as of this encounter Progress Notes * Andra George M.D. - 02/10/2023 7:00 AM CDT Plastic and Reconstructive Surgery Dr. Saravia's Service Name of patient: Joceline Cavazos [facility] Day: 2 Date of Admission: at Principal Diagnosis: Lymphedema Post Mastectomy Status post: Surgery Information This Encounter Past Procedures (02/10/2022 to Today) Date Procedures Providers Location 02/09/2023 BYPASS LYMPHOVENOUS, BYPASS LYMPHATICOVENOUS, left arm proceed as indicated., Microbubble CEUS lymphatic mapping left arm, Intraoperative ICG Lymphography, left arm. Eber Saraiva M.D.Bustos Hemer, Samyd S, M.D. [facility] SUBJECTIVE Patient was seen and examined at bedside this morning by our team. Pain is well controlled. Did notsleep much overnight. Denies nausea/vomiting, SOB or difficulty breathing. She has been judiciouslywearing SCDs. Events over the past 24 hours: TERELL OBJECTIVE VITAL SIGNS Temperature: [36.4 ??C-37.2 ??C] 36.6 ??C Heart Rate: [66-124] 97 Resp Rate: [2-32] 18 Blood Pressure: (101-136)/(55-75) 118/60 SpO2: [89 %-100 %] 96 % Height: [162 cm] 162 cm Weight: [86.4 kg] 86.4 kg BSA (Calculated - sq m): [1.97 sq meters] 1.97 sq meters BMI (Calculated): [32.9 kg/m??] 32.9 kg/m?? Pulse Rate: [56-123] 56 I/O 02/08 235 Maintenance IV 2500 Continuous Medications 17 Intermittent Medications 350 Total Intake(mL/kg) 2867 (33.2) Urine (mL/kg/hr) 2024 950 (1.6) Blood 0 Total Output 2024 950 Net +842 -950 Current Weight: 86.4 kg (Admit Weight: 86.4 kg) Physical Examination General: lying in bed, calm, no acute distress Respiratory: breathing is non-labored on room air Abdomen: soft, non-distended, appropriately tender MSK: LUE elevated in pillows, wrapped with DAVE wrap gentle compression. No fingertip discoloration,warm to ouch, distally well perfused. Sensation intact. NO drains. US Lymphatic Mapping with Contrast Result Date: 02/09/2023 Impression: Contrast-enhanced ultrasound lymphatic mapping performed. ASSESSMENT / PLAN #1 Lymphedema Post Mastectomy Ms. Uribe is 52 y.o. female who is 1 Day Post-Op from Left - BYPASS LYMPHOVENOUS, BYPASS LYMPHATICOVENOUS, left arm. Left - Microbubble CEUS lymphatic mapping left arm, breast, chest. Left - Intraoperative ICG Lymphography, left arm. AFVSS, overall doing well since surgery. Ok to discharge this AM. PLAN Diet: Adult Diet Regular Activity: as tolerated, Elevate LUE in pillows. Pain: pain well-controlled on oral pain meds Surgical Incision: surgical dressing in place Cardiovascular: stable and blood pressure at baseline IVF: Saline lock TKO Drain: not applicable Infectious: perioperative antibiotics completed GI and Bowel Regimen: Senokot S VTE Prophylaxis: Lovenox GI Prophylaxis: not indicated Consults: No Anticipated Disposition: Home today Please page Dr. Saravia's service pager at [phone] with any questions or concerns. * Emmanuel Minaya, Pharm.D., R.Ph. - 02/09/2023 7:26 PM CDT Images from the original note were not included. Admission Medication History Note Adherence issues: No concerns Medication list source: Patient and Pharmacy or dispense records Medication related information: Verzenio - alternates days between daily at bedtime with twice daily. Pt brought own supply Prior to Admission Medications Med List Status: Pharmacy Complete Set By: Emmanuel Minaya, Pharm.D., R.Ph. at 02/09/2023 7:12 PM Taking? Last Dose Informant Start Date End Date LT cholecalciferol (VITAMIN D3) 50 mcg (2,000 Unit) capsule 02/08/2023 -- 11/25/21 -- Take 50 mcg by mouth daily. cranberry 400 mg capsule 02/08/2023 -- 02/18/22 -- Take 400 mg by mouth daily. L.acid/L.casei/B.bif/B.luís/FOS (PROBIOTIC BLEND ORAL) 02/08/2023 -- 11/25/21 -- Take 1 tablet by mouth daily. levothyroxine (SYNTHROID, LEVOTHROID) 75 mcg tablet 02/09/2023 at 0400 -- 03/19/21 -- Take 75 mcg by mouth every morning before breakfast. loperamide (IMODIUM A-D) 2 mg capsule Past Week -- -- -- Take 2 mg by mouth as needed for diarrhea. aiyytvun-asq-xmjue acid-biotin (Hair,Skin and Nails,FA-biotin,) 133.3 mcg- 1,666.7 mcg capsule PastWeek -- -- -- Take 1 capsule by mouth daily. PreviDent 5000 Booster Plus 1.1 % paste dental paste -- -- 12/02/21 -- Apply 1 application to the mouth or throat daily. tamoxifen (NOLVADEX) 20 mg tablet Past Month -- 10/11/21 -- Take 20 mg by mouth daily. triamcinolone (KENALOG) 0.1 % cream Past Month -- 09/06/21 -- as needed. Verzenio 150 mg tablet 02/08/2023 at 1999 -- 06/11/22 -- Take 150 mg by mouth as directed. Alternating days 1 daily with 1 twice daily * Eliel Bean - 02/09/2023 6:45 AM CDT [facility] Spiritual Care Progress Note Patient: Joceline Uribe Age:52 y.o. [facility] Reason(s) for encounter: Spiritual support as part of the interdisciplinary care team. Spiritual Assessment Taoist Identification / Spiritual Practices: Jude Branham. Spiritual Needs and/or Concerns: Mrs. Uribe requested prayer before surgery. Shared prayer. Spiritual Care interventions: Introduced the role as member of the interdisciplinary care team with the aim of establishing spiritual therapeutic rapport with patient and/or family Facilitated episcopalian/spiritual practices (prayer, blessing, sacred texts, episcopalian item) with theaim to reinforce patient's spiritual wellness and connection with source of sacredness. Spiritual Care outcomes: Patient/family was appreciative of spiritual care support. Spiritual Care Plan / Recommendations: No further spiritual care requested or required at this time. Chaplains can be contacted by paging [phone] ([place]) or [phone] ([employer]). documented in this encounter Nursing Notes * Lizette Madrid, R.N. - 02/10/2023 10:09 AM CDT Problem: SAFETY ADULT Goal: Maintain a safe environment Outcome: Adequate for Discharge Problem: SAFETY ADULT - RISK FOR FALL AND OR FALL INJURY Goal: Patient remains free from fall/fall injury Outcome: Adequate for Discharge Problem: PAIN - ADULT Goal: PT VERBALIZES/DEMONSTRATES ADEQUATE COMFORT LEVEL OR BASELINE Outcome: Adequate for Discharge Problem: KNOWLEDGE DEFICIT Goal: Patient/family/caregiver demonstrates understanding of disease process, treatment plan, medications, and discharge instructions Outcome: Adequate for Discharge Problem: INFECTION - ADULT Goal: Absence of infection during hospitalization Outcome: Adequate for Discharge Problem: SKIN/TISSUE INTEGRITY Goal: Skin/Tissue integrity maintained or improved Outcome: Adequate for Discharge Goal: Oral and Nasal mucous membranes remain intact Outcome: Adequate for Discharge Problem: DISCHARGE PLANNING Goal: Patient discharge needs identified Outcome: Adequate for Discharge Problem: POTENTIAL OR ACTUAL PRESSURE INJURY-ADULT Goal: Manage sensory Perception deficits to maintain and/or improve skin integrity Outcome: Adequate for Discharge Goal: Maintain optimal skin moisture to ensure or improve skin integrity Outcome: Adequate for Discharge Goal: Achieve optimal activity and/or mobility to maintain or improve skin integrity Outcome: Adequate for Discharge Goal: Nutrient intake appropriate for improving, restoring or maintaining skin integrity Outcome: Adequate for Discharge Goal: Minimize friction and/or shear to maintain or improve skin integrity Outcome: Adequate for Discharge Problem: Compromised Skin Integrity Goal: Skin/Tissue integrity maintained or improved Outcome: Adequate for Discharge Goal: Oral and Nasal mucous membranes remain intact Outcome: Adequate for Discharge Goal: Incisions, wounds, or drain sites healing without S/S of infection Outcome: Adequate for Discharge Problem: Incontinence and/or Moisture Goal: Skin integrity is maintained or improved Outcome: Adequate for Discharge Shift Goals: Clinical Goals for the Shift: Discharge Identify possible barriers to meeting goals/advancing plan of care: None End of Shift Summary: Patient verbalized an understanding of discharge education. PIV removed, VSS.Patient left unit with family. documented in this encounter OR Notes * Op Note - Eber Saravia M.D. - 02/09/2023 11:13 AM CDT Procedure Mapping of superficial lymphatics in left upper extremity using indocyanine green lymphography Mapping of superficial venous system in left upper extremity using infrared vein visualization system Lymphatic reconstruction of left upper extremity with supermicrosurgical lymphaticovenular anastomosis (LVA) with 9 anastomoses created, with Use of high-power surgical microscope Application of layered compression system to left upper extremity Pre-op Diagnosis Acquired lymphedema of left upper extremity Lymphedema Post Mastectomy Post-op Diagnosis Lymphedema Post MastectomyAcquired lymphedema of left upper extremity Lymphedema Post Mastectomy A fish hatchery assistant actively participated and was necessary for one or more of the following: opening, exposure and visualization during the case, maintaining hemostasis, wound closure resulting in itssafe and expeditious completion. Findings All LVAs were confirmed patent and demonstrating antegrade drainage. Complications None Operative Note Narrative Indications: This is a 52 y.o. female with ICG lymphographically confirmed diagnosis of lymphedema involving left upper extremity. After discussion of treatment options including surgical versus nonsurgical treatments and various surgical procedures, supermicrosurgical lymphaticovenular anastomosiswas determined to the treatment of choice. Planned procedure, risks, benefits alternatives, indications, limitations, possible complications of the surgery were discussed with the patient thoroughly.All questions raised were answered to satisfaction. The patient expressed unequivocal understandingand would like to proceed with surgery. A consent form was signed. OPERATIVE PROCEDURE: The patient was brought to the operating room and placed in supine position. SCDs were placed. Preoperative antibiotic was administered. General anesthesia was induced. Next, our radiology team performed the contrast enhanced ultrasound lymphatic mapping and tamiko mapping of left upper extremity. Then patient was turned over to plastic surgery team. ICG mapping lymphography was performed by injecting 0.25% ICG solution intradermally and circumferentially in distal to proximal sequence . After each circumferential injection, immediate scanning with Spy Phi was performed. Linear patterns seen, suggestive of functioning lymph vessels, were marked on the skin. This continued until no further linear patterns were seen. Next, all of superficial veins adjacent to the mapped linear patterns were visualized and marked with an infrared vein visualization system. Vein scanning was performed from distal to proximal, from medial to lateral, and from volar to dorsal aspects. Locations of valves in veins were noted. Incisions were then strategically planned at locations in which both lymph vessels and veins were present, and preferably in area just distal to a vein valve. The high-power surgical microscope was draped. The operative site was prepped and draped in standard sterile fashion. The surgery was performed in a distal to proximal fashion. In each of the incisions, the procedure was performed as below. 0.05 cc Lymphazeurin was injected 2 cm distal to the planned incision. The incision was infiltrate with 0.05 cc of 1% Lidocaine with 1:100,000 epinephrine. The incision was made with #15 scalpel in partial-thickness, then completed to full-thickness with electrocautery using a [place] tip. Using a microdissector, superficial fat and deep fat layers were thoroughly dissected in search of lymph vessels and superficial venule. After identification of lymph vessels/veins, we determined the optimal anastomotic configuration to effect optimal lymph-vein pressure gradient and drainage. The supermicrosurgical anastomosis was performed with the microscope set to ~30X magnification level and with 11-0 or 12-0 nylon. Suture placement continued until leak-proof anastomosis was achieved. In incision #1, or the most distal incision, 3 LVAs were created with 0.3 mm, 0.3 mm and 0.4 mm functional lymphatic vessels connecting via end to side intussusception to 1.2 cm vein ( vessels were mapped by CEUS, ICG, VF). In incision #2, 1 LVA was created with 0.5 mm connecting via end to end intu ssusception to 1.0 cm vein ( vessels were mapped by CEUS, ICG, VF). In incision #3, 4 LVAs were created with 0.3 mm, 0.4 mm, 0.4 mm and 0.5 mm functional lymphatic vessels connecting via end to side intussusception to 1.5 cm vein ( vessels were mapped by ICG, VF). In incision #4, 1 LVA was created with 0.3 mm functional lymphatic vessel connecting via end to side intussusception to 0.8 cm vein ( vessels were mapped by CEUS, VF). At this point, with 9 functioning LVAs created, sufficient lymph drainage was felt to have been achieved. All wounds were closed with 3-0 Monocryl deep dermal sutures. Care was taken to avoid impinging the LVAs. The incisions were sealed with Dermabond. Soft roll was applied in figure-of-8 fashion from hand to the shoulder. Finally short stretch compression bandage was applied in a layered, figure-of-8 fashion from hand to shoulder. The finger were observed for ~10 minutes to ensure absence of venous congestion. With this the procedure was concluded. The patient tolerated the procedure well, and was extubated in the operating room and brought to the recovery room in good condition. There were no immediate complications. At the completion of the case, all counts were correct. Eber Saravia M.D. * Brief Op Note - Andra George M.D. - 02/09/2023 11:13 AM CDT Pre-op Diagnosis Lymphedema Post Mastectomy Post-op Diagnosis Lymphedema Post Mastectomy Findings As expected. Complications None Andra Fitzgerald M.D. documented in this encounter Miscellaneous Notes * Hospital Course - Andra George M.D. - 02/09/2023 8:23 PM CDT Mrs. Joceline Uribe is status post left [facility] 11/12/[address] Saravia. She presented on 02/09/2023 for elective lymphatico- venous bypass with intraoperative microbubble CEUS. Procedure was completed uneventfully and patient recovered initially in the PACU. Postoperatively in the PACU, she recovered well and was transferred to the floor for overnight observation. There, the pain was initially controlled with oral Tylenol and ibuprofen with prn oxycodone. The patient received perioperative antibiotics. The patient's diet was advanced as tolerated. Oncethe patient was able to pass urine and had return of bowel function, she was deemed appropriate fordismissal and dismissed in stable condition. documented in this encounter Plan of Treatment Not on file documented as of this encounter Procedures Procedure Name Priority Date/Time Associated Diagnosis Comments ADULT OXYGEN THERAPY Routine 02/09/2023 5:04 PM CDT OTHER 02/09/2023 8:27 AM CDT Lymphedema Post Mastectomy Case Notes Pt req inpatient due to fall risk post-op FOCUSED ULTRASOUND 02/09/2023 8: 27 AM CDT Lymphedema Post Mastectomy Case Notes Pt req inpatient due to fall risk post-op BYPASS LYMPHOVENOUS/BYPASS LYMPHATICOVENOUS 02/09/2023 8:27 AM CDT Lymphedema Post Mastectomy Case Notes Pt req inpatient due to fall risk post-op documented in this encounter Visit Diagnoses Diagnosis Lymphedema Post Mastectomy- Primary Lymphedema Post Mastectomy documented in this encounter Admitting Diagnoses Diagnosis Lymphedema Post Mastectomy documented in this encounter Administered Medications Inactive Administered Medications - up to 3 most recent administrations Medication Order MAR Action Action Date Dose Rate Site abemaciclib tablet 150 mg (VERZENIO) 150 mg, oral, Every other day, First dose on Thu02/09/23 at 2000, Rx ID'd Okay to use [facility] Lot [id number] Exp 06/29/2025 Swallow whole. Do NOT crush, chew, or split tablet. Given 02/09/2023 7:55 PM CDT 150 mg acetaminophen tablet 1,000 mg (TYLENOL) 1,000 mg, oral, 4 times daily, First dose on Thu02/09/23 at 2100 Given 02/10/2023 8:31 AM CDT 1,000 mg Given 02/09/2023 8:34 PM CDT 1,000 mg calcium carbonate chewable tablet 200 mg of calcium (TUMS) 200 mg of calcium, oral, Every 2 hour PRN, indigestion, Starting on Thu02/09/23 at 1844, Do not exceed 12 tablets per day 500 mg calcium carbonate contains 200 mg of elemental calcium. enoxaparin injection 40 mg (LOVENOX) 40 mg, subcutaneous, Daily, First dose on Thu02/10/23 at 0900, Drug Monitoring Program: Pharmacist to adjust medication dosing based on indication and drug clearance factors. Given 02/10/2023 8:31 AM CDT 40 mg Right Upper Arm (Back) heparin (porcine) 5,000 Units in NaCl 0.9% 500 mL flush solution intravenous, Once, On Thu02/09/23 at 0830, For 1 dose, Intra-Op, *FLUSH* Given 02/09/2023 4:42 PM CDT 500 mL Left Arm ibuprofen tablet 600 mg (MOTRIN) 600 mg, oral, Every 6 hours scheduled, First dose on Thu02/10/23 at 0000, Take with food or milk if GI disturbances occur with use. Given 02/10/2023 6:02 AM CDT 600 mg Given 02/10/2023 12:33 AM CDT 600 mg indocyanine green injection (IC-GREEN) As needed, Starting on Thu02/09/23 at 1023, Intra-Op Given 02/09/2023 10:23 AM CDT 2.5 mg Left Arm isosulfan blue 1 % injection (LYMPHAZURIN) As needed, Starting on Thu02/09/23 at 1626, Intra-Op Given 02/09/2023 4:26 PM CDT 0.5 mL Left Arm levothyroxine tablet 75 mcg (SYNTHROID, LEVOTHROID) 75 mcg, oral, Daily before breakfast, First dose (after last modification) on Thu02/10/23 at 0500 Given 02/10/2023 5:02 AM CDT 75 mcg lidocaine-EPINEPHrine 1 %-1:100,000 injection (XYLOCAINE W/EPI) As needed, Starting on Thu02/09/23 at 1642, Intra-Op Given 02/09/2023 4:42 PM CDT 5 mL Left Arm loperamide capsule 2 mg (IMODIUM A-D) 2 mg, oral, 4 times daily PRN, diarrhea, Starting on Thu02/09/23 at 1920 midazolam (PF) injection 2 mg (VERSED) 2 mg, intravenous, Once, On Thu02/09/23 at 0815, For 1 dose, Pre-Op Given 02/09/2023 8:30 AM CDT 2 mg oxyCODONE IR tablet 10 mg (ROXICODONE) 10 mg, oral, Every 4 hours PRN, severe pain or score 7-10 of 10, for breakthrough pain, Starting on Thu02/09/23 at 1844 oxyCODONE IR tablet 5 mg (ROXICODONE) 5 mg, oral, Every 4 hours PRN, moderate pain or score 4-6 of 10, for breakthrough pain, Starting on Thu02/09/23 at 1844 sennosides-docusate sodium 8.6-50 mg per tablet 1 tablet (SENOKOT-S) 1 tablet, oral, Every 12 hours, First dose on Thu02/09/23 at 1900, do not give if patient has diarrhea. Given 02/10/2023 8:31 AM CDT 1 tablet Given 02/09/2023 8:34 PM CDT 1 tablet sodium chloride 0.9 % injection 10 mL 10 mL, intravenous, As needed, line care, Starting on Thu02/09/23 at 1844, Peripheral Intravenous Catheter and Rapid Infusion Catheter, prior to blood sampling, post blood transfusion or post blood sampling sodium chloride 0.9 % injection 3 mL 3 mL, intravenous, As needed, line care, Starting on Thu02/09/23 at 1844, Prior to and following infusion and between multiple consecutive infusions: sodium chloride 0.9 % injection sodium chloride 0.9 % injection 3 mL 3 mL, intravenous, Every 12 hours scheduled, First dose on Thu02/09/23 at 2100, Peripheral Intravenous Catheter and Rapid Infusion Catheter, when no infusion to maintain patency documented in this encounter Active and Recently Administered Medications Times are shown in CDT. Scheduled Medication Order 02/08/2023 02/09/2023 02/10/2023 abemaciclib tablet 150 mg (VERZENIO) 150 mg, oral, Every other day, First dose on Thu02/09/23 at 2000, Rx ID'd Okay to use [facility] Lot [id number] Exp 06/29/2025 Swallow whole. Do NOT crush, chew, or split tablet. 1954 (Given - Provider: Kendra Cintron R.N.) acetaminophen tablet 1,000 mg (TYLENOL) 1,000 mg, oral, 4 times daily, First dose on Thu02/09/23 at 2100 2033 (Given - Provider: Kendra Cintron R.N.) 0831 (Given - Provider: Lizette Madrid R.N.) clindamycin in D5W IVPB 900 mg (CLEOCIN) (COMPLETED) 900 mg, intravenous, at 100 mL/hr, Administer over 30 Minutes, Once, On Thu02/09/23 at 0830, For 1 dose, Intra-Op, Administer within 1 hour prior to surgical incisi, Indications: Prophylaxis, surgical 0910 (Given - Provider: Suzi Lord, CARLY, RN REHAB)1508 (Given - Provider: Lizeth Rocha APRN, KEYLA, MNA) enoxaparin injection 40 mg (LOVENOX) 40 mg, subcutaneous, Daily, First dose on Thu02/10/23 at 0900, Drug Monitoring Program: Pharmacist to adjust medication dosing based on indication and drug clearance factors. 0831 (Given - Provid er: Lizette Madrid RYeN.) fosaprepitant in NaCl 0.9% IVPB 150 mg (EMEND) (COMPLETED) 150 mg, intravenous, at 500 mL/hr, Administer over 30 Minutes, Once, On Thu02/09/23 at 0815, For 1 dose, Pre-Op, Incompatible with solutions containing divalent cations (calcium, magnesium) including lactated Ringer's solution., Restriction Criteria (Pharmacy will review and approve if criteria met): Use in the perioperative setting 1507 (Given - Provider: Lizeth Rocha APRN, KEYLA, MNA) heparin (porcine) 5,000 Units in NaCl 0.9% 500 mL flush solution (COMPLETED) intravenous, Once, On Thu02/09/23 at 0830, For 1 dose, Intra-Op, *FLUSH* 0830 (Due)1642 (Given - Provider: Eber Saravia M.D.) ibuprofen tablet 600 mg (MOTRIN) 600 mg, oral, Every 6 hours scheduled, First dose on Thu02/10/23 at 0000, Take with food or milk if GI disturbances occur with use. 0033 (Given - Provid er: Micah aCno R.N.)0602 (Given - Provider: Micah Cano R.N.) levothyroxine tablet 75 mcg (SYNTHROID, LEVOTHROID) 75 mcg, oral, Daily before breakfast, First dose (after last modification) on Thu02/10/23 at 0500 0502 (Given - Provid er: Micah Cano R.N.) midazolam (PF) injection 2 mg (VERSED) (COMPLETED) 2 mg, intravenous, Once, On Thu02/09/23 at 0815, For 1 dose, Pre-Op 0830 (Given - Provider: Mariana Covarrubias RJuan) sennosides-docusate sodium 8.6-50 mg per tablet 1 tablet (SENOKOT-S) 1 tablet, oral, Every 12 hours, First dose on Thu02/09/23 at 1900, do not give if patient has diarrhea. 2033 (Given - Provider: Kendra Cintron R.N.) 0831 (Given - Provider: Lizette Madrid R.N.) sodium chloride 0.9 % injection 3 mL 3 mL, intravenous, Every 12 hours scheduled, First dose on Thu02/09/23 at 2100, Peripheral Intravenous Catheter and Rapid Infusion Catheter, when no infusion to maintain patency 2223 (Not Given - Provider: Kendra Cintron R.N. - Reason: Order parameters not met) 0837 (Not Given - Provider: Lizette Madrid R.N. - Reason: Loss of IV access) PRN Medication Order 02/08/2023 02/09/2023 02/10/2023 calcium carbonate chewable tablet 200 mg of calcium (TUMS) 200 mg of calcium, oral, Every 2 hour PRN, indigestion, Starting on Thu02/09/23 at 1844, Do not exceed 12 tablets per day 500 mg calcium carbonate contains 200 mg of elemental calcium. indocyanine green injection (IC-GREEN) (CANCELED) As needed, Starting on Thu02/09/23 at 1023, Intra-Op 1023 (Given - Provider: Eber Saravia M.D.) isosulfan blue 1 % injection (LYMPHAZURIN) (CANCELED) As needed, Starting on Thu02/09/23 at 1626, Intra-Op 1626 (Given - Provider: Eber Saravia M.D.) lidocaine-EPINEPHrine 1 %-1:100,000 injection (XYLOCAINE W/EPI) (CANCELED) As needed, Starting on Thu02/09/23 at 1642, Intra-Op 1642 (Given - Provider: Eber Saravia M.D.) loperamide capsule 2 mg (IMODIUM A-D) 2 mg, oral, 4 times daily PRN, diarrhea, Starting on Thu02/09/23 at 1920 oxyCODONE IR tablet 10 mg (ROXICODONE)(Linked Group 1) 10 mg, oral, Every 4 hours PRN, severe pain or score 7-10 of 10, for breakthrough pain, Starting on Thu02/09/23 at 1844 oxyCODONE IR tablet 5 mg (ROXICODONE)(Linked Group 1) 5 mg, oral, Every 4 hours PRN, moderate pain or score 4-6 of 10, for breakthrough pain, Starting on Thu02/09/23 at 1844 sodium chloride 0.9 % injection 10 mL 10 mL, intravenous, As needed, line care, Starting on Thu02/09/23 at 1844, Peripheral Intravenous Catheter and Rapid Infusion Catheter, prior to blood sampling, post blood transfusion or post blood sampling sodium chloride 0.9 % injection 3 mL 3 mL, intravenous, As needed, line care, Starting on Thu02/09/23 at 1844, Prior to and following infusion and between multiple consecutive infusions: sodium chloride 0.9 % injection Linked Groups Order Group 1: oxyCODONE IR tablet 5 mg (ROXICODONE)Jump to med 5 mg, oral, Every 4 hours PRN, moderate pain or score 4-6 of 10, for breakthrough pain, Starting on Thu02/09/23 at 1844 Or oxyCODONE IR tablet 10 mg (ROXICODONE)Jump to med 10 mg, oral, Every 4 hours PRN, severe pain or score 7-10 of 10, for breakthrough pain, Starting on Thu02/09/23 at 1844 documented in this encounter Additional Health Concerns Infection Onset Date Last Indicated Resolved Time Protective Environment 09/04/2022 09/04/2022 Assessment Noted Time PHQ-9 Depression Total Score: 12 08/13/ 023 10:14 AM CDT documented as of this encounter Care Teams Dot Etcher Apprentice Relationship Specialty Start Date End Date None Reported, Pcp PCP - General Family Medicine 02/09/23 documented as of this encounter
--- OUTSIDE RECORDS SUMMARY | 2023-06-19 00:51 | XMS_ITS | Encounter Summary ---
Author Name Unknown Organization [facility] Address [address] [place] [address] Care Team Providers Care Porcelain Finisher Name Role Phone None Reported, Pcp Primary Care Provider Unavail able Encounter Details Date Type Department Care Team (Late st Contact Info) Description 02/20/2023 Clinical Communication Division of Plastic Surgery in [place], [place] [address] [place] [address] Eber Saravia M.D. [address] [place] [phone] Social History Tobacco Use Types Packs/Day Years [...] How often do you attend chur or caodaism services? More than 4 times per year 06/29/2022 Do you belong to any clubs o r organizations such as cheondoism groups, unions, fraternal [...] Answer Date Recorded PHQ-2 Score 2 08/13/2022 [facility] ional [facility] - Occupational Stress Questionnaire Answer Date [...] documented as of this encounter Care Teams Porcelain Finisher Relationship Specialty Start Date End Date None Reported, Pcp PCP - General Family Medicine 02/09/23 documented as of this encounter
--- OUTSIDE RECORDS SUMMARY | 2023-06-19 00:51 | XMS_ITS | Encounter Summary ---
Author Name Unknown Organization [facility] Address [address] [place] [address] Care Team Providers Care Pot Builder Name Role Phone Unavailable Primary Care Provider Unavailabl e Encounter Details Date Type Department Care Team (Latest Contact Info) Description 01/28/2023 12:00 PM CDT Ancillary Procedure Department of [...] often do you attend chur ch or confucianist services? More than 4 times per year 06/29/2022 Do you belong to any clubs o r organizations such as gnosticism groups, unions, fraternal or athletic groups, or [...] Answer Date Recorded PHQ-2 Score 2 08/13/2022 [facility] - Occupational Stress Questionnaire Answer Date Recorded [...] or slept in a mcfp (including now)? No 06/29/2022 Depression Answer Date [...] PLASTIC AND RECON SURGERY IMAGE EXAM Routine 01/28/2023 12:00 PM CDT documented in this encounter Results * Arms-Plastic And Recon Surgery Image Exam (01/28/2023 12:00 PM CDT) 01/28/2023 12:0 0 PM CDT Narrative [facility] - 01/28/2023 3:13 PM CDT This order has been created [...]
--- OUTSIDE RECORDS SUMMARY | 2023-06-19 00:51 | XMS_ITS | Encounter Summary ---
Author Name Unknown Organization [facility] Address [address] [place] [address] Care Team Providers Care Animation Artist Name Role Phone None Reported, Pcp Primary Care Provider Unavail able Reason for Visit * Auth/Cert (Routine) Specialty Diagnoses / Procedures Referred By Cassidy gutierrez Referred To Contact Diagnoses Lymphedema Post Mastectomy Malignant neoplasm of upper-outer quadrant of left female breast (HCC) Lymphedema Post Mastectomy [I97.2] Procedures [place] UNLISTED PROC HEMIC/LYMPHATIC [place] INJ PROCEDURE LYMPHANGIOGRAPHY BYPASS LYMPHOVENOUS/BYPASS LYMPHATICOVENOUS, left arm and breast/chest, proceed as indicated Intraoperative ICG Lymphography, left arm, chest/breast area Microbubble CEUS lymphatic mapping left arm, breast/chest Referral ID Status Reason Start Date Expiration Date Visits Re quested Visits Authorized [id number] 1 1 Encounter Details Date Type Department Care Team (Latest Contact Info) Description 02/09/2023 6:29 AM CDT - 02/10/2023 10:09 AM CDT Hospital Encounter [facility], Sixth Floor [address] [place] [address] Eber Saravia M.D. [address] [place] [address] Lymphedema Post Mastectomy (Primary Dx) Discharge Disposition: Home or Self Care Social [...] often do you attend chur ch or adventism services? More than 4 times per year 06/29/2022 Do you belong to any clubs o r organizations such as bahai groups, unions, fraternal [...] Answer Date Recorded PHQ-2 Score 2 08/13/2022 [facility] - Occupational Stress [...] AM CDT DISCHARGE SUMMARY BRIEF OVERVIEW Hospital: [facility] Discharge Provider: Eber Saravia M.D. Primary Team: [...] left arm, Intraoperative ICG Lymphography, left arm. FahradyanEber M.D.Bustos Hemer, Samyd S, M.D. T ROEI OR DISCHARGE DISPOSITION Home or Self Care [1] OUTPATIENT FOLLOW UP Scheduled Appointments 02/12/2023 7:30 AM Jeaneth Llamas O.T., BRANDONKATHY Physical Medicine and Rehabilitation 02/12/2023 9:30 AM Marlen Ruvalcaba APRN C.N.PYe, D.N.P. Plastic Surgery 03/11/2023 1:30 PM Marlen Ruvalcaba APRN C.N.PYe, D.N.P. Plastic Surgery 03/11/2023 3:30 PM Agnes Aggarwal P.T., Jamaal.P.T. Physical Medicine and Rehabilitation For appointment details refer to your Patient Appointment Guide. TEST RESULTS PENDING AT DISCHARGE Pending Labs None DETAILS OF HOSPITAL STAY REASON FOR ADMISSION Lymphedema Post Mastectomy HOSPITAL COURSE Mrs. Joceline Uribe is status post left axillary lymph node dissection with byron Michael axillary lymphatico-venous bypass on 11/12/2021 performed by [...] by mouth as needed for diarrhea. 0 itzkvtck-brm-kaufn acid-biotin (Hair,Skin and Nails,FA-biotin,) 133.3 mcg- 1,666.7 [...] Saravia's Service Name of patient: Joceline Cavazos [facility] Day: 2 Date of Admission: at Principal [...] kg/m?? Pulse Rate: [56-123] 56 I/O 02/08 Maintenance IV 2500 Continuous Medications 17 Intermittent [...] Please page Dr. Saravia's service pager at [phone] with any questions or concerns. * Emmanuel [...] mg by mouth as needed for diarrhea. zsobyeib-fge-eokof acid-biotin (Hair,Skin and Nails,FA-biotin,) 133.3 mcg- 1,666.7 [...] Eliel Bean - 02/09/2023 6:45 AM CDT [facility] Spiritual Care Progress Note Patient: Joceline Uribe Age:52 y.o. Location: [id number] Reason(s) for encounter: Spiritual support as part of the interdisciplinary care team. Spiritual Assessment Quaker Identification / Spiritual Practices: Jude Branham. Spiritual Needs and/or Concerns: Mrs. Uribe requested prayer before surgery. Shared prayer. Spiritual Care interventions: Introduced the role as member of the interdisciplinary care team with the aim of establishing spiritual therapeutic rapport with patient and/or family Facilitated adventism/spiritual practices (prayer, blessing, sacred texts, adventism item) with theaim to reinforce patient's spiritual wellness and connection with source of sacredness. Spiritual Care outcomes: Patient/family was appreciative of spiritual care support. Spiritual Care Plan / Recommendations: No further spiritual care requested or required at this time. Chaplains can be contacted by paging [phone] ([place]) or [phone] ([facility]). documented in this encounter Nursing Notes * Lizette Madrid, RYeN. - 02/10/2023 10:09 AM CDT Problem: SAFETY [...] left upper extremity Lymphedema Post Mastectomy A hotel assistant manager actively participated and was necessary for one [...] completed to full-thickness with electrocautery using a Crenshaw tip. Using a microdissector, superficial fat and [...] axillary lymph node dissection with Dr. Berger[facility] axillary lymphatico-venous bypass on 11/12/2021 performed [...] Post Mastectomy- Primary documented in this encounter Admitting Diagnoses Diagnosis Lymphedema Post Mastectomy documented in this encounter Administered Medications Inactive Administered Medications - up to 3 most recent administrations Medication Order MAR Action Action Date Dose Rate Site abemaciclib tablet 150 mg (VERZENIO) 150 mg, oral, Every other day, First dose on Thu02/09/23 at 2000, Rx ID'd Okay to use [facility] Lot [id number] Exp 06/29/2025 Swallow whole. Do NOT crush, [...] CDT 40 mg Right Upper Arm (Back) ibuprofen tablet 600 mg (MOTRIN) 600 mg, oral, Every 6 hours scheduled, First dose on Thu02/10/23 at 0000, Take with food or milk if GI disturbances occur with use. Given 02/10/2023 6:02 AM CDT 600 mg Given 02/10/2023 12:33 AM CDT 600 mg levothyroxine tablet 75 mcg (SYNTHROID, LEVOTHROID) 75 mcg, oral, Daily before breakfast, First dose (after last modification) on Thu02/10/23 at 0500 Given 02/10/2023 5:02 AM CDT 75 mcg loperamide capsule 2 mg (IMODIUM A-D) 2 [...] at 2000, Rx ID'd Okay to use [facility] Lot [id number] Exp 06/29/2025 Swallow whole. Do NOT crush, chew, or split tablet. 1954 (Given - Provider: Kendra Cintron RYeNYe) acetaminophen tablet 1,000 mg (TYLENOL) 1,000 mg, oral, 4 times daily, First dose on Thu02/09/23 at 2100 2033 (Given - Provider: Kendra Cintron RYeN.) 0831 (Given - Provider: Lizette Madrid RJuan) clindamycin in D5W IVPB 900 mg (CLEOCIN) (COMPLETED) 900 mg, intravenous, at 100 mL/hr, Administer over 30 Minutes, Once, On Thu02/09/23 at 0830, For 1 dose, Intra-Op, Administer within 1 hour prior to surgical incisi, Indications: Prophylaxis, surgical 09 (Given - Provider: Suzi Lord APRN, KEYLA)1508 (Given - Provider: Lizeth Rocha APRN, CRNA, DAREK) enoxaparin injection 40 mg (LOVENOX) 40 mg, subcutaneous, Daily, First dose on Thu02/10/23 at 0900, Drug Monitoring Program: Pharmacist to adjust medication dosing based on indication and drug clearance factors. 0831 (Given - Provid er: Lizette Madrid RYeNYe) fosaprepitant in NaCl 0.9% IVPB 150 mg (EMEND) (COMPLETED) 150 mg, intravenous, at 500 mL/hr, Administer over 30 Minutes, Once, On Thu02/09/23 at 0815, For 1 dose, Pre-Op, Incompatible with solutions containing divalent cations (calcium, magnesium) including lactated Ringer's solution., Restriction Criteria (Pharmacy will review and approve if criteria met): Use in the perioperative setting 1507 (Given - Provider: Lizeth Rocha APRN, KEYLA, DAREK) heparin (porcine) 5,000 Units in NaCl 0.9% [...] use. 0033 (Given - Provid er: Micah Cano R.N.)0602 (Given - Provider: Micah Cano R.N.) levothyroxine tablet 75 mcg (SYNTHROID, LEVOTHROID) 75 mcg, oral, Daily before breakfast, First dose (after last modification) on Thu02/10/23 at 0500 0502 (Given - Provid er: Micah Cano R.N.) midazolam (PF) injection 2 mg (VERSED) (COMPLETED) 2 mg, intravenous, Once, On Thu02/09/23 at 0815, For 1 dose, Pre-Op 0830 (Given - Provider: Mariana Covarrubias R.N.) sennosides-docusate sodium 8.6-50 mg per tablet 1 tablet (SENOKOT-S) 1 tablet, oral, Every 12 hours, First dose on Thu02/09/23 at 1900, do not give if patient has diarrhea. 2033 (Given - Provider: Kendra Cintron R.N.) 0831 (Given - Provider: Lizette Madrid RJuan) sodium chloride 0.9 % injection 3 mL 3 mL, intravenous, Every 12 hours scheduled, First dose on Thu02/09/23 at 2100, Peripheral Intravenous Catheter and Rapid Infusion Catheter, when no infusion to maintain patency 222 (Not Given - Provider: Kendra Cintron R.N. [...] of 10, for breakthrough pain, Starting on 02/09/23 at 1844 documented in this encounter Additional Health Concerns Infection Onset Date Last Indicated Resolved Time Protective Environment 09/04/2022 09/04/2022 Assessment Noted Time PHQ-9 Depression Total Score: 12 08/13/ 023 10:14 AM CDT documented as of this encounter Care Teams Animation Artist Relationship Specialty Start Date End Date None Reported, Pcp PCP - General Family Medicine 02/09/23 documented as of this encounter
--- OUTSIDE RECORDS SUMMARY | 2023-06-19 00:52 | XMS_ITS | Encounter Summary ---
Author Name Unknown Organization [facility] Address [address] [place] [address] Care Team Providers Care Patch Machine Operator Name Role Phone Unavailable Primary Care Provider Unavailabl e Reason for Visit * Reason Onset Date Comments Pre-visit Intake 07/28/2022 Encounter Details Date Type Department Care Team (Latest Contact Info) Description 07/28/2022 9:30 AM CDT Clinical Communication Virtual Review in [place], [place] [address] [place], [place] [phone] Pre-visit Intake Social History Tobacco Use Types Packs/Day Years Used Date Smoking Tobacco: Never Smokeless Tobacco: Never Tobacco Cessation:Counseling Given: Not Answered Alcohol Use Standard Drinks/Week Comments Never 0 (1 standard drink = 0.6 oz pur e alcohol) Humiliation, Afraid, Rape, and Kick questionnair e [...] and heating? Not hard at all 06/29/2022 [facility] Occupat ional Health - Occupational Stress [...] or slept in a intermediate (including now)? No 06/29/2022 Depression Answer Date Recor ded PHQ-9 Total Score (max 27) 5 07/29 Nutrition Answer Date Recorded Nutrition: EVOO Fat [...]
--- OUTSIDE RECORDS SUMMARY | 2023-06-19 00:52 | XMS_ITS | Encounter Summary ---
Author Name Unknown Organization [facility] Address [address] [place] [address] Care Team Providers Care Bindery Technician Name Role Phone Unavailable Primary Care Provider Unavailabl e Reason for Visit * Outpatient (Routine) - Closed Specialty Diagnoses / Procedures Referred By Cassidy gutierrez Referred To Contact Diagnoses Lymphedema Post Mastectomy Procedures Minor Misc Procedure Eber Saravia M.D. [address] [place] [address] [facility] Referral ID Status Reason Start Date Expiration Date Visits Re quested Visits Authorized [id number] Closed 02/26/2022 02/26/2023 1 1 Encounter Details Date Type Department Care Team (Latest Contact Info) Description 07/04/2022 8:30 AM MULTIMEDIA TECHNICIAN Procedure visit Division of Plastic Surgery in [place], [place] [address] [place] [phone] Eber Saravia M.D. [address] [place] [phone] Dissection Axillary Node Status Post (Primary Dx); Lymphedema Post Mastectomy Social History [...] How often do you attend chur or jewish services? More than 4 times per year 06/29/2022 Do you belong to any clubs o r organizations such as rastafari groups, unions, fraternal or athletic groups, or [...] and heating? Not hard at all 06/29/2022 [facility] of Occupat ional Health - Occupational Stress [...] in a mcfp (including now)? No 06/29/2022 Nutrition Answer Date Recorded Nutrition: EVOO Fat [...] PM CDT documented as of this encounter Procedure Notes * Fahradyan, Eber, M.D. - 07/04/2022 8:30 AM CST OPERATIVE REPORT INDOCYANINE GREEN LYMPHOGRAPHY - IMMEDIATE SCAN NAME: Joceline Uribe AGE: 52 y.o. SURGERY/ PROCEDURE DATE: 07/04/2022 Surgeon: Eber Saravia MD EXCEL EXPERT: The physician quality control assistant was present and assisted throughout the entire procedures including but notlimited to obtaining/securing exposure, obtaining hemostasis, suturing, and dressing application. OPERATION: Indocyanine green lymphography of bilateral upper extremity(ies), immediate scan PREOPERATIVE DIAGNOSIS: Suspected lymphedema of left upper extremity(ies) POSTOPERATIVE DIAGNOSIS: Same as preoperative diagnosis ANESTHESIA: Topical OPERATIVE INDICATIONS: This is a 52 y.o.-year-old female status post left axillary lymph node dissection, immediate lymphatic reconstruction and radiation therapy. ICG lymphography was offered for definitive diagnosis and and monitoring of lymphatic injury. The rational, alternatives, the risks and benefits of the proposed procedure were thoroughly discussed. The patient expressed clearly understanding of what discussed. A consent form was signed. OPERATIVE PROCEDURE: The patient was taken to the operating room and placed in supine position. The injected sites were anesthetized with topical anesthetics. 0.25% indocyanine green solution was injected, 0.1 cc per injection site, with a total of 0.3 cc injected per limb. Immediate scanning was performed with spy phi machine. In left upper extremity: Multiple linear patterns starting dorsal hand injection sites, linear parents continue to the posterior forearm on radial and ulnar sides at the midforearm level from the radial side they continue to the anterior surface crossing the elbow from both radial and ulnar sides linear parents continue on medial and lateral arm reaching to the axilla. There is a linear pattern that starts from the left axilla goes across the l left superior chest reaching to the neck. These linear pattern was parallel to a superficial vein that was visible with naked eye. In right upper extremity: Back flow to the fingers noted multiple linear patterns starting at the dorsal hand injections as well as medial styloid injection. Linear patterns continue on the anterior and posterior surface of the forearm across the elbow on its medial surface go along the medial arm reaching to the axilla. Patient tolerated the procedure well, and will return in 6 hours for delayed scan. OPERATIVE FINDINGS: As listed above. ESTIMATED BLOOD LOSS: None SPECIMENS: None DRAINS: None COMPLICATIONS: None PARTICIPATION IN PROCEDURE: The primary surgeon/proceduralist performed the procedure with assistance. Eber Saravia MD IMEDIA TECHNICIAN documented in this encounter Plan of Treatment Not on file documented as of this encounter Visit Diagnoses Diagnosis Dissection Axillary Node Status Post- Primary Lymphedema Post Mastectomy documented in this encounter Administered Medications Inactive Administered Medications - up to 3 most recent administrations Medication Order MAR Action Action Date Dose Rate Site indocyanine green injection 25 mg (IC-GREEN) 25 mg, subcutaneous, Once, On Thu07/04/22 at 0915, For 1 dose, To be administered subq Given 07/04/2022 9:16 AM MULTIMEDIA TECHNICIAN 0.5 mg Other documented in this encounter
--- OUTSIDE RECORDS SUMMARY | 2023-06-19 00:52 | XMS_ITS | Encounter Summary ---
Author Name Unknown Organization [facility] Address [address] [place] [address] Care Team Providers Care Watch Commander Name Role Phone Unavailable Primary Care Provider Unavailabl e Encounter Details Date Type Department Care Team (Latest Contact Info) Description 12/17/2022 Clinical Communication Department of Physical Medicine and Rehabilitation in [place], [place] [address] [place] [address] Jeaneth Llamas, O.T., [facility] [address] [place] [address] Social History Tobacco Use Types Packs/Day Years [...] often do you attend chur ch or synagogue services? More than 4 times per year 06/29/2022 Do you belong to any clubs o r organizations such as mormonism groups, unions, fraternal or athletic groups, or [...] Answer Date Recorded PHQ-2 Score 2 08/13/2022 [facility] of Occupat ional Health - Occupational Stress [...] encounter Miscellaneous Notes * Telephone Encounter - Nahomi Shannon - 12/17/2022 1:22 PM CDT Joceline Eric called this afternoon asking for a message to be passed along to you. She will be coming for appointments in January and February, and will be seeing Agnes both times. She wanted to ask that you pass along to Agnes anything she should be aware of prior to being seen. as that would be appreciated. She did note that she has experienced more swelling in the hand and wrist, but is hoping upcoming procedures will help with that. If you need to contact her, best number to reach her at is [phone]. Thanks! documented in this encounter Plan of Treatment Not on file documented as of this encounter Visit Diagnoses Not on filedocumented in this encounter Additional Health Concerns Infection Onset Date Last Indicated Resolved Time Protective Environment 09/04/2022 09/04/2022 Assessment Noted Time PHQ-9 Depression Total Score: 12 08/13/ 023 10:14 AM CDT documented as of this encounter
--- OUTSIDE RECORDS SUMMARY | 2023-06-19 00:52 | XMS_ITS | Encounter Summary ---
Author Name Unknown Organization [facility] Address [address] [place] [address] Care Team Providers Care Casing Grader Name Role Phone Unavailable Primary Care Provider Unavailabl e Encounter Details Date Type Department Care Team (Latest Contact Info) Description 01/28/2023 9:50 AM CDT - 01/28/2023 11:59 PM CDT Hospital Encounter Department of Laboratory Medicine and Pathology, [facility], in [place], [place] [address] [place] [address] Eber Saravia M.D. [address] [place] [address] Lymphedema Post Mastectomy Discharge Disposition: Home or [...] often do you attend chur ch or orthodoxy services? More than 4 times per year 06/29/2022 Do you belong to any clubs o r organizations such as adventist groups, unions, fraternal [...] Answer Date Recorded PHQ-2 Score 2 08/13/2022 [facility] of Occupat ional Health - Occupational [...] hours as needed for pain. 0 02/10/2023 L.acid/L.casei/B.bif/B .luís/FOS (PROBIOTIC BLEND ORAL) Take 1 tablet by mouth daily. 0 11/25/2021 levothyroxine (SYNTHROID, LEVOTHROID) 75 mcg tablet Take 75 mcg by mouth every morning before breakfast. 0 03/19/2021 loperamide (IMODIUM A-D) 2 mg capsule Take 2 mg by mouth as needed for diarrhea. 0 [id number] acid-biotin (Hair,Skin and Nails,FA-biotin,) 133.3 mcg- 1,666.7 [...] daily with 1 twice daily 0 06/11/2022 ondansetron 4 mg oral capusle Take 4 mg by mouth. 0 01/26/2023 02/10/20 23 documented as of this encounter Plan of Treatment Not on file documented as of this encounter Procedures Procedure Name Priority Date/Time Associated Diagnosis Comments CBC WITHOUT DIFFERENTIAL, B Routine 01/28/2023 11:43 AM CDT Lymphedema Post Mastectomy COMPREHENSIVE METABOLIC PANEL, S/P Routine 01/28/2023 11:43 AM CDT Lymphedema Post Mastectomy documented in this encounter Results * (ABNORMAL) Comprehensive Metabolic Panel (01/28/2023 11:43 AM CDT) [facility] Potassium, S 4.2 3.6 - 5.2 mmol/L 01/28/2023 12:44 PM CDT DTL Sodium, S 142 135 - 145 mmol/L 01/28/2023 12:44 PM CDT DTL Chloride, S 108(H) 98 - 107 mmol/L 01/28/2023 12:44 PM CDT DTL Bicarbonate, S 24 22 - 29 mmol/L 01/28/2023 12:44 PM CDT DTL Anion Gap 10 7 - 15 01/28/2023 12:44 PM CDT DTL BUN (Blood Urea Nitrogen), S 16 6 - 21 mg/dL 01/28/2023 12:44 PM CDT DTL Creatinine 0.94 0.59 - 1.04 mg/dL 01/28/2023 12:44 PM CDT DTL Estimated GFR (eGFR) 73 >=60 mL/min/BS A 01/28/2023 12:44 PM CDT DTL Comment: Estimated GFR calculated using the 2020 CKD_EPI creatinine equation. Calcium, Total, S 9.3 8.6 - 10.0 mg/dL 01/28/2023 12:44 PM CDT DTL Glucose, S 98 70 - 140 mg/dL 01/28/2023 12:44 PM CDT DTL Protein, Total, S 6.2(L) 6.3 - 7.9 g/dL 01/28/2023 12:44 PM CDT DTL Albumin, S 4.0 3.5 - 5.0 g/dL 01/28/2023 12:44 PM CDT DTL Aspartate Aminotransferase (AST), S 17 8 - 43 U/L 01/28/2023 12:44 PM CDT DTL Alkaline Phosphatase, S 38 35 - 104 U/L 01/28/2023 12:44 PM CDT DTL Alanine Aminotransferase (ALT), S 15 7 - 45 U/L 01/28/2023 12:44 PM CDT DTL Bilirubin, Total, S <0.2 <=1.2 mg/dL 01/28/2023 12:44 PM CDT DTL Blood (Blood, Venous) 01/28/2023 11:43 AM CDT 01/28/2023 12:20 PM CDT Eber Saravia M.D. LAB BLOOD ADD-ON [facility] [address] [place] [address], [facility] [address] [place] [address] * (ABNORMAL) CBC without Differential (01/28/2023 11:43 AM CDT) Hemoglobin 12.4 11.6 - 15.0 g/dL 01/28/2023 12:35 PM CDT DTL Hematocrit 37.3 35.5 - 44.9 % 01/28/2023 12:35 PM CDT DTL Erythrocytes 3.72(L) 3.92 - 5.13 x10(12)/L 01/28/2023 12:35 PM CDT DTL MCV 100.3(H) 78.2 - 97.9 fL 01/28/2023 12:35 PM CDT DTL RBC Distrib Width 13.6 12.2 - 16.1 % 01/28/2023 12:35 PM CDT DTL Platelet Count 202 157 - 371 x10(9)/L 01/28/2023 12:35 PM CDT DTL Leukocytes 5.2 3.4 - 9.6 x10(9)/L 01/28/2023 12:35 PM CDT DTL Blood (Blood, Venous) 01/28/2023 11:43 AM CDT 01/28/2023 12:02 PM CDT Eber Saravia M.D. LAB BLOOD ADD-ON [facility] [address] [place] [address], [facility] [address] [place] [address] documented in this encounter Visit Diagnoses Diagnosis Lymphedema Post Mastectomy documented in this encounter Additional Health Concerns Infection Onset Date Last Indicated Resolved Time Protective Environment 09/04/2022 09/04/2022 Assessment Noted Time PHQ-9 Depression Total Score: 12 08/13/ 023 10:14 AM CDT documented as of this encounter
--- OUTSIDE RECORDS SUMMARY | 2023-06-19 00:52 | XMS_ITS | Encounter Summary ---
Author Name Unknown Organization [facility] Address [address] [place] [address] Care Team Providers Care Sea Shell Gatherer Name Role Phone Unavailable Primary Care Provider Unavailabl e Reason for Visit * Physical Therapy (Routine) - Closed Specialty Diagnoses / Procedures Referred By Cassidy t Referred To Contact Diagnoses Lymphedema Post Mastectomy Procedures PT or OT eval and treat (first available) Eber Saravia M.D. [address] [place] [address] [facility] Referral ID Status Reason Start Date Expiration Date Visits Re quested Visits Authorized [id number] Closed 02/26/2022 02/26/2023 1 1 Encounter Details Date Type Department Care Team (Latest Contact Info) Description 07/04/2022 10:30 AM BIOLOGY INTERN Comprehensive Visit Department of Physical Medicine and Rehabilitation in [place], [place] [address] [place] [phone] Eber Saravia M.D. [address] [place] [phone] Alisha Nogueira M.S., O.T., [facility]T-KATHY [address] [place] [phone] Lymphedema Post Mastectomy Social History Tobacco Use [...] often do you attend chur ch or taoist services? More than 4 times per year 06/29/2022 Do you belong to any clubs o r organizations such as taoism groups, unions, fraternal or athletic groups, or [...] and heating? Not hard at all 06/29/2022 [facility] of Occupat ional Health - Occupational Stress [...] in a fdc (including now)? No 06/29/2022 Nutrition Answer Date [...] as of this encounter Progress Notes * Alisha Nogueira M.S., O.T., CLT-KATHY - 07/04/2022 10:30 AM CST Occupational Therapy Lymphedema Outpatient Progress Note Patient's Name: Joceline Uribe Referring Provider: Eber Saravia M.D. Rehab Diagnosis: 1. Lymphedema Post Mastectomy Reason for Referral: OT eval and treat - post ALND with LVA for left axilla. History of Present Illness: Patient is a 51 year old female s/p lumpectomy and SLNB on the left (Apr 2021), adjuvant chemotherapy in setting of stage IIB invasive ductal carcinoma. On 11/12/2021 patient had a level 1 to level to left axillary lymph node dissection as well as an LV bypass left axilla. Completed 25 fractions of radiation on 02/03/2022. Onset Date: 11/12/21 Payor: [facility]IELD / Plan: [facility] [employer] / Product Type: HMO / SUBJECTIVE Patient/Caregiver Goals: Manage breast edema Patient Comments: Patient notes increased with left breast swelling starting in May. She has bra fitting appointment scheduled for July 29 at 10:[facility] and continues to seeher local therapist for swelling management and other PT things that we haven't been able to address lately with my swelling. She asked Dr. Saravia today if it would be ok to use ultrasound on the scar tissue as her local therapist suggested the scar tissue from her surgery could be preventing the drainage. Interval History: She had dye injected into both arms this morning for lymphography with Dr. Saravia and will return this afternoon for delayed reading, so she is unable to have any compression on her arms or chest today, otherwise, she states she has been wearing sleeve daily and gauntlet still as needed. Total Visit Count: 5 OBJECTIVE 10 CM Measurements: 11/07/2021: pre-ALND 11/25/2021: post-ALND/LVA 12/19/2021 01/10/2022 02/25/2022 07/04/2022 Lymphedema Life Impact Scale (LLIS) Version 2 1. The amount of pain associated with my lymphedema is: 1 2. The amount of limb heaviness associated with my lymphedema is: 1 3. The amount of skin tightness associated with my lymphedema is: 1 4. The size of my swollen limb(s) seems: 0 5. Lymphedema affects the movement of my swollen limb(s): 1 6. The strength in my swollen limb(s) is: 2 7. Lymphedema affects my body image (i.e. How I think I look.): 0 8. Lymphedema affects my socializing with others: 0 9. Lymphedema affects my intimate relations with spouse or partner (rate 0 if not applicable): 0 10. Lymphedema gets me down (i.e. depression, frustration, or anger due to the lymphedema.): 1 11. I must rely on others for help due to my lymphedema: 0 12. I know what to do to manage my lymphedema: 1 13. Lymphedema affects my ability to perform self-care activities (i.e. eating, dressing, hygiene) 0 14. Lymphedema affects my ability to perform routine home or work-related activities: 0 15. Lymphedema affects my performance of preferred leisure activities: 0 16. Lymphedema affects the proper fit of clothing/shoes: 2 17. Lymphedema affects my sleep: 0 In the past year, I have become ill with an infection in my swollen limb requiring oral antibioticsor hospitalization 0x Number of Questions Answered 17 LLIS Total Score 10 LLIS Percent Impairment 15 % Lymphedema Assessment Lymphedema measurement used: 10 CM UE Side affected L LUE (10 CM) 10cm 17.5 17.3 17.5 17.3 17.4 18 20cm 15.9 16.3 15.9 15.7 15.8 16.5 30cm 23.4 23.5 23.4 23.8 23.7 24 40cm 26.3 25.6 26.3 24.8 25.7 27 50cm 31 31.1 31 31.5 31.6 30.5 60cm 31.5 30.9 31.5 31.2 31.5 33 Current L UE Volume 2215.58 ml 2429.42 ml 2456.8 ml 2417.16 ml 2467.31 ml 2546.15 ml Change in volume from initial edema (ml) 213.84 ml 241.22 ml 201.58 ml 251.73 ml 330.57 ml Change from initial edema (%) 9.65 % 10.89 % 9.1 % 11.36 % 14.92 % Sozo - Bioimpedance: 11/25/2021: 12.1, 12/19/21: 16.1, 01/10/22: 15.9, 02/25/2022:8.5, 07/04/22: 26.4 Humberto - Moisture Meter (measured 10 cm lateral from nipple on R and L breast and averaged the 3 trials and then took ration of affected/unaffected. A ratio greater than 1.2 indicative of sub-clinical lymphedema): Left Breast: 51, 54, 54 = 53% Right Breast: 39, 40, 42 = 40.3 % Ratio: 53/40.3 = 1.32 Breast: She has mild peau de orange and dimpling around left nipple and inferior left breast. Fullness to left breast at inferior and lateral aspect with pitting edema noted. No pain or erythema noted to breasts Cordin prominent cord still present in left axilla and 2-3 in antecubital fossa of left arm butit does not interfere with her shoulder range of motion. Skin: Lateral left breast and axilla slightly discolored in radiation field. Skin is intact. Some thickening of skin still present in the axilla and over the pectoralis attachment indicating mild radiation fibrosis. No Left shoulder range of motion within functional limits this visit and patient reports no concerns for range of motion. TREATMENT Patient presents to outpatient clinic this morning with no compression in place given morning Lymphography with Dr. Saravia this morning and again this afternoon to take the delayed reading/imaging. Today's session focused on breast edema management. Her local therapist trialed kinesiotaping to assist with drainage but that caused a skin reaction. She is currently wearing one of the bras that she previously purchased at the [facility] that provides good separation and lift. Obtained updated circumferential measurements for left upper extremity, bioimpedance reading and also measured baseline Humberto measurements to measure percent of water content in the breasts. Reviewed past and current measurements with patient for each area and all showing increased measurements and lymphatic fluid present. Educated patient on contributing factors to cause this and established compression plan to continue at home. Instructed her and spouse on use of 4 DAVE bandage to apply over bra with swell spot in place over left breast and left lateral chest wall or use of foam packs/pad on lateral chest wall for localizedcompression. Provided with images for if patient wanted to just bandage left breast alone, however,images were for the Coban 2 Layer System. She plans to trial this when she gets home after her visits today and will leave bandages in place for 23 hours and then reapply after 1 hour of rest and will continue this until she sees Jayla, her local PT on of next week. She is planning to get asports-bra like compression bra for her fitting appointment that is scheduled for July 29. She will also return to wearing her compression sleeve and gauntlet after visits today and instructed to resume bandaging if hand, wrist and forearm does not improve with sleeve use. She will see MEGHA Eric back in the lymphedema clinic on July 29. Assessment Joceline is a very pleasant 52 year old female seen this morning in the lymphedema clinic accompanied by her supportive spouse. She has been having increased left breast swelling since May but has not noted any increased swelling in left arm with the exception of this morning since she has not been wearing her compression and had injections in hands for the lymphography with Plastics today. Her bioimpedance score was also up significantly since her last visit in February 2022. She was instructed on chest wall bandaging with use of swell spot under the bandaging to address left breast swellingand also to monitor left hand and upper extremity swelling and return to bandaging if she does not note any improve after using her sleeve/gauntlet over the weekend. She continues to see her local physical therapist for assistance with lymphedema management and ongoing strengthening and balance andedwinll see her back on July 29 in our clinic to reassess compression program and objective measures given the increases noted in today's measurements and patient also being fit for new compression bras on that day, as well. Functional Goals and Timeframes: Goal #1: Patient will be independent with this effective lymphedema management plan. Goal #1 Date: 10/02/22 Goal #1 Status: Progressing Goal #2: Patient will demonstrate full and symmetric shoulder range of motion to complete activities of daily living pain free and in preparation for radiation Goal #2 Date: 02/05/22 Goal #2 Status: Met Goal #3: Patient to demonstrate decreased fullness in left axilla and breast with use of edema management strategies for home management. Goal #3 Date: 10/02/22 Goal #3 Status: Modified Plan TREATMENT PLAN Number of Visits: up to 4 visits Frequency: 1 time every 2-4 weeks Plan: Alter current plan Plan Comments: Follow-up in a month for left breast and left upper extremity lymphedema. Assess bioimpedance, Humberto measurements, and circumferential measurements. Treatment interventions may include: Therapeutic exercise, Therapeutic functional activity, Self-care/home management, Manual therapy Daytime Compression Program: Gauntlet, Arm sleeve, Daytime compression bandaging, Compression bra Daytime Compression Program Additional Details: arm sleeve and glove for left arm Nighttime Compression Program Additional Details: DAVE bandage for chest with swell spot in place 4 DAVE bandage over cotton bra/sports bra with swell spot in place for 23 of 24 hours of wear untilnext appointment with local therapist. OT: Time Spent with Patient Evaluations OT Re-Eval (min) : 24 min Therapeutic Interventions Home Management Training (min): 32 min Time Tracking Total Timed Units (min): 32 min Total Treatment Time (min): 56 min Alisha Nogueira M.S., O.T., [facility] OGY INTERN documented in this encounter Plan of Treatment Not on file documented as of this encounter Visit Diagnoses Diagnosis Lymphedema Post Mastectomy documented in this encounter
--- OUTSIDE RECORDS SUMMARY | 2023-06-19 00:52 | XMS_ITS | Encounter Summary ---
Author Name Unknown Organization [facility] Address [address] [place] [address] Care Team Providers Care Jazz Musician Name Role Phone Unavailable Primary Care Provider Unavailabl e Encounter Details Date Type Department Care Team (Late st Contact Info) Description 07/29/2022 10:30 AM CDT Education [facility] in [place], [place] [address] [place] [phone] Rose Ignacio, CARLY, C.N.P., D.N.P. [address] [place] [phone] Jeaneth Pantoja RYeNYe [address] [place] [phone] Symptoms Vasomotor Social History Tobacco Use Types Packs/Day Years [...] any clubs o r organizations such as sikhism groups, unions, fraternal [...] and heating? Not hard at all 06/29/2022 [facility] of Occupat ionco Health - Occupational Stress Questionnaire Answer Date [...] or slept in a assisted (including now)? No 06/29/2022 Depression Answer Date [...] of this encounter Progress Notes * Jeaneth Pantoja RYeN. - 07/29/2022 10:30 AM CDT SUBJECTIVE REASON FOR VISIT Joceline Uribe seen today for initial patient education Referring provider: Ms. Rose Ignacio APRN, DIRECTOR SALES TRAINING, DNP ASSESSMENT/PLAN Patient education provided to: patient Teaching methods included: explanation, class, printed material, and video Discussion included: sex therapy appointment education, vaginal health, lubricants, moisturizers, healthy sleep, using relaxation to alleviate symptoms, and CBT-I module sent via portal message Education materials were given to the patient: yes documented in this encounter Plan of Treatment Not on file documented as of this encounter Visit Diagnoses Diagnosis Symptoms Vasomotor documented in this encounter Additional Health Concerns Assessment Noted Time PHQ-9 Depression Total Score: 5 07/30/19 23 8:44 AM CDT documented as of this encounter
--- OUTSIDE RECORDS SUMMARY | 2023-06-19 00:52 | XMS_ITS | Encounter Summary ---
Author Name Unknown Organization [facility] Address [address] [place] [address] Care Team Providers Care Veterinary Toxicologist Name Role Phone Unavailable Primary Care Provider Unavailabl e Reason for Referral * Outpatient (Routine) - Closed Specialty Diagnoses / Procedures Referred By Cassidy gutierrez Referred To Contact Diagnoses Preanesthetic Medical Exam Procedures ECG 12 Lead Kerry Pearce APRN C.N.P., M.S.N. [address] [place] [phone] [facility] Referral ID Status Reason Start Date Expiration Date Visits Re quested Visits Authorized [id number] Closed 07/29/2022 07/30/2023 1 1 Encounter Details Date Type Department Care Team (Late st Contact Info) Description 11/11/2022 Orders Only Preoperative Evaluation Center in [place], [place] [address] [place] [phone] Kerry Pearce APRN, C.N.P., M.S.N. Preanesthetic Medical Exam (Primary Dx) Social History Tobacco Use Types [...] How often do you attend chur or mormonism services? More than 4 times per year [...] Answer Date Recorded PHQ-2 Score 2 08/13/2022 [facility] of Occupat ional Health - Occupational Stress [...] on file documented as of this encounter Results * ECG 12 Lead (01/28/2023 10:04 AM CDT) Ventricular Rate ECG/Min 70 BPM MUSE TN Interval 164 ms MUSE QRSD Interval 84 ms MUSE QT Interval 386 ms MUSE QTC Interval 416 ms MUSE P Mccaskill 43 degrees MUSE R Mccaskill 24 degrees MUSE T Wave Mccaskill 37 degrees MUSE 01/28/2023 10:0 4 AM CDT 01/28/2023 10:31 AM CDT Impressions MUSE - 01/28/2023 10:24 AM CDT Normal sinus rhythm with sinus arrhythmia Low voltage QRS No previous ECGs available Reviewed by LUCI Good Narrative Procedure Note Mono Kwong M.D., M.P.H. - 01/28/2023 IMPRESSION: Normal sinus rhythm with sinus arrhythmia Low voltage QRS No previous ECGs available Reviewed by LUCI Good James Chase APRN.N.P., M.S.N. ECG ORD ERABLES MUSE NA documented in this encounter Visit Diagnoses Diagnosis Preanesthetic Medical Exam- Primary documented in this encounter Additional Health Concerns Infection Onset Date Last Indicated Resolved Time Protective Environment 09/04/2022 09/04/2022 Assessment Noted Time PHQ-9 Depression Total Score: 12 08/13/ 023 10:14 AM CDT documented as of this encounter
--- OUTSIDE RECORDS SUMMARY | 2023-06-19 00:52 | XMS_ITS | Encounter Summary ---
Author Name Unknown Organization [facility] Address [address] [place] [address] Care Team Providers Care Utility Division Project Manager Name Role Phone Unavailable Primary Care Provider Unavailabl e Reason for Visit * Outpatient (Routine) - Closed Specialty Diagnoses / Procedures Referred By Cassidy gutierrez Referred To Contact Diagnoses Lymphedema Post Mastectomy Procedures Minor Misc Procedure Eber Saravia M.D. [address] [place] [address] [facility] Referral ID Status Reason Start Date Expiration Date Visits Re quested Visits Authorized [id number] Closed 02/26/2022 02/26/2023 1 1 Encounter Details Date Type Department Care Team (Latest Contact Info) Description 07/04/2022 2:30 PM METAL WELDER Procedure visit Division of Plastic Surgery in [place], [place] [address] [place] [address] Eber Saravia M.D. [address] [place] [phone] Dissection Axillary Node Status Post (Primary Dx); [...] How often do you attend chur or gnosticist services? More than 4 times per year 06/29/2022 Do you belong to any clubs o r organizations such as nondenominational groups, unions, fraternal [...] and heating? Not hard at all 06/29/2022 [facility] [place] of Occupat ional Health - Occupational Stress [...] slept in a long term (including now)? No 06/29/2022 Nutrition Answer Date [...] as of this encounter Progress Notes * Yolande Howard R.N. - 07/04/2022 2:30 PM CST After this afternoon's follow-up ICG testing of bilateral arms, surgical intervention is indicated,per Dr. Saravia. An entry will be submitted to insurance for consideration of left arm LV bypass and left chest/breast LV bypass. The patient was made aware of the surgical wait list for this procedure and she expressed understanding. L WELDER * Eber Saravia M.D. - 07/04/2022 2:30 PM CST Patient is status post left axillary lymph node dissection with immediate lymphatic reconstruction followed by radiation therapy. Diagnostic Indocyanine green lymphography was performed. Delayed skindisplayed some dermal backflow patterns on the forearm which is an early sign of subclinical lymphedema. Patient was also seen by our PMR colleagues and bioimpedance measurements indicated increased fluid content in her left upper extremity. Pathogenesis of lymphedema and the natural history [...] when to perform which procedure was explained. Left upper extremity super microsurgical lymphovenous bypass was recommended. Eber Saravia MD L WELDER documented in this encounter Procedure Notes * Eber Saravia M.D. - 07/04/2022 2:30 PM CST OPERATIVE REPORT INDOCYANINE GREEN LYMPHOGRAPHY - DELAYED SCAN NAME: Joceline Uribe AGE: 52 y.o. SURGERY/ PROCEDURE DATE: 07/04/2022 SURGEON(S)/ADMINISTRATIVE RESOURCES ASSOCIATE(S): Eber Saravia MD OPERATION: Indocyanine green lymphography of bilateral upper extremity(ies), delayed scan PREOPERATIVE DIAGNOSIS: Suspected lymphedema of left upper extremity(ies) POSTOPERATIVE DIAGNOSIS: Same as preoperative diagnosis ANESTHESIA: Topical OPERATIVE INDICATIONS: This is a 52 y.o.-year-old female who underwent the first part of the ICG lymphography this morning, and now returned for the second part of the study. OPERATIVE PROCEDURE: The patient was taken to the operating room and placed in supine position. 6- hour delayed scanning was performed with spy phi machine. In left upper extremity: Multiple linear patterns starting from the dorsal wrist continue to anterior and posterior forearm across the elbow and reach to the axilla. Some splash pattern at the distalforearm. Abnormal The linear pattern across the left chest was not visible. In the right upper extremity multiple linear patterns starting from the dorsal hand and medial styloid injection does continue to the anterior and posterior forearm across the elbow continue across the medial surface of the arm and reached through the axilla Patient tolerated the procedure well, and was released from the procedure room in satisfactory condition. OPERATIVE FINDING: As listed above. ESTIMATED BLOOD LOSS: None SPECIMENS: None DRAINS: None COMPLICATIONS: None PARTICIPATION IN PROCEDURE: The primary surgeon/proceduralist performed the procedure with assistance. Eber Saravia MD L WELDER documented in this encounter Plan of Treatment Not on file documented as of this encounter Visit Diagnoses Diagnosis Dissection Axillary Node Status Post- Primary Lymphedema Post Mastectomy documented in this encounter
--- OUTSIDE RECORDS SUMMARY | 2023-06-19 00:52 | XMS_ITS | Encounter Summary ---
Author Name Unknown Organization [facility] Address [address] [place] [address] Care Team Providers Care Visitor Services Representative Name Role Phone Unavailable Primary Care Provider Unavailabl e Reason for Visit * Reason Onset Date Comments opinion on mutual patient 06/26/2022 Encounter Details Date Type Department Care Team (Latest Contact Info) Description 06/26/2022 Clinical Communication Department of Physical Medicine and Rehabilitation in [place], [place] [address] [place] [address] Jeaneth Llamas O.T., [facility] [address] [place] [address] opinion on mutual patient Social History Tobacco Use Types Packs/Day Years [...] How often do you attend chur or sikhism services? More than 4 times per year 06/29/2022 Do you belong to any clubs o r organizations such as hoahaoism groups, unions, fraternal or athletic groups, or [...] and heating? Not hard at all 06/29/2022 [facility] of Occupat ional Health - [...] in a snf (including now)? No 06/29/2022 Nutrition Answer Date [...] encounter Miscellaneous Notes * Telephone Encounter - Alec Mooresa Nunn - 06/26/2022 12:46 PM CST PROVIDER'S NAME: Farhad CALLER'S NAME: Nancy Lutz OT at [facility] WHAT IS THE CALL REGARDING? Reason for the Call: Would like to discuss mutual patient with you regarding your opinion on lymphedema pump and breast swelling. Details/Desired Outcome: Requests call back. Authorization on File: Yes, [place] Auth Next Follow Up: Suggested Next Steps Listed in Clinical Note: scheduled on 07/04/22 Response preference (online or phone call): Phone Additional Comments: NA PATIENT OR CALLER'S PHONE NUMBER: [phone] [employer] documented in this encounter Plan of Treatment Not on file documented as of this encounter Visit Diagnoses Not on filedocumented in this encounter
--- OUTSIDE RECORDS SUMMARY | 2023-06-19 00:52 | XMS_ITS | Encounter Summary ---
Author Name Unknown Organization [facility] Address [address] [place] [id number] Care Team Providers Care Insurance Claims Representative Name Role Phone Unavailable Primary Care Provider Unavailabl e Reason for Visit * Outpatient (Routine) - Closed Specialty Diagnoses / Procedures Referred By Cassidy gutierrez Referred To Contact Plastic Surgery Diagnoses dx Eber Saravia M.D. [address] [place] [phone] [facility] Referral ID Status Reason Start Date Expiration Date Visits Re quested Visits Authorized [id number] Closed 07/29/2022 07/30/2023 1 1 Encounter Details Date Type Department Care Team (Late st Contact Info) Description 01/28/2023 8:45 AM CDT Office Visit Division of Plastic Surgery in [place], [place] [address] [place] [phone] Eber Saravia M.D. [address] [place] [phone] Lymphedema Post Mastectomy (Primary Dx) Social History [...] How often do you attend chur or synagogue services? More than 4 times [...] Answer Date Recorded PHQ-2 Score 2 08/13/2022 [facility] [place] of Occupat ional Health - Occupational Stress [...] or slept in a usp (including now)? No 06/29/2022 Depression Answer Date [...] Progress Notes * Andra George M.D. - 01/28/2023 8:45 AM CDT Preoperative Evaluation for Surgical Treatment of Lymphedema Dr. Saravia's Service Subjective Mrs. Joceline Uribe is status post left axillary lymph node dissection with Dr. Berger, [facility] axillary lymphatico-venous bypass on 11/12/[address] Saravia. She presents today for preoperative evaluation in the setting of scheduled lymphatico-venous bypass with intraoperative microbubble CEUS on 02/09/2023. EXAM: General: Patient is alert and oriented x 3. No distress. Very pleasant. Accompanied by her . Extremity: left axillary incision healed, dry and intact without erythema or drainage noted. No obvious signs of fluid accumulation or infection noted. Assessment: Plan: It was a pleasure to see Ms. Uribe today in clinic. We discussed the intricacies of her upcoming surgery. This will be a long surgery. It will be done under general anesthesia and in collaboration with our colleagues with radiology, who will be performing contrast-enhanced ultrasound before surgical incision. This will typically take around 30-60 minutes. We discussed that usually the patient will end up with around 5 to 6 small 1-2cm incisions in her affected extremity. Recovery is usually fast. We discussed the need of immediate compression up to at least 4 weeks to avoid backflow from venous pressure into the lymphatic system. We also discussed postoperative care and recovery including restrictions. All questions were answered. We will see her on 02/09/2023 in the preoperative holding area for markings. Patient agrees and understands plan. Patient was seen and examined with Dr. Saravia. documented in this encounter Plan of Treatment [...]
--- OUTSIDE RECORDS SUMMARY | 2023-06-19 00:52 | XMS_ITS | Encounter Summary ---
Author Name Unknown Organization [facility] Address [address] [place] [id number] Care Team Providers Care Clinical Lab Specialist Name Role Phone Unavailable Primary Care Provider Unavailabl e Reason for Visit * Reason Onset Date Comments Pre-visit Intake 07/03/2022 Encounter Details Date Type Department Care Team (Latest Contact Info) Description 07/03/2022 9:45 AM ASSOCIATE STORE LEADER Clinical Communication Virtual Review in [place], [place] [address] [place], [place] [phone] Pre-visit Intake Social History Tobacco Use Types [...] often do you attend chur ch or religion services? More than 4 times per year 06/29/2022 Do you belong to any clubs o r organizations such as orthodox groups, unions, fraternal [...] and heating? Not hard at all 06/29/2022 [facility] [place] of Occupat ional Health - Occupational Stress [...] in a assisted (including now)? No 06/29/2022 Nutrition Answer Date [...]
--- OUTSIDE RECORDS SUMMARY | 2023-06-19 00:52 | XMS_ITS | Encounter Summary ---
Author Name Unknown Organization [facility] Address [address] [place] [address] Care Team Providers Care Fabrication Engineer Name Role Phone Unavailable Primary Care Provider Unavailabl e Reason for Visit * Occupational Therapy (Routine) - Canceled Specialty Diagnoses / Procedures Referred By Cassidy gutierrez Referred To Contact Diagnoses Lymphedema Post Mastectomy Procedures OT Ongoing Treatment Eber Saravia M.D. [address] [place] [address] [facility] Referral ID Status Reason Start Date Expiration Date V isits Requested Visits Authorized [id number] Canceled 07/04/2022 10/25/2022 4 4 Encounter Details Date Type Department Care Team (Latest Contact Info) Description 07/29/2022 8:00 AM CDT Clinical Support Department of Physical Medicine and Rehabilitation in [place], [place] [address] [place] [phone] Eber Saravia M.D. [address] [place] [phone] Jeaneth Llamas O.T., [facility] [address] [place] [phone] Lymphedema Post Mastectomy Social History Tobacco Use [...] often do you attend chur ch or christian services? More than 4 times per year 06/29/2022 Do you belong to any clubs o r organizations such as baptist groups, unions, fraternal [...] and heating? Not hard at all 06/29/2022 [facility] [place] of Occupat ional Health - Occupational Stress [...] of this encounter Progress Notes * Jeaneth Llaams O.T., [facility] - 07/29/2022 8:00 AM CDT Occupational Therapy Lymphedema Outpatient Progress Note Patient's Name: Joceline Uribe Referring Provider: Eber Saravia M.D. Rehab Diagnosis: 1. Lymphedema Post Mastectomy Reason for Referral: OT eval and treat - post ALND with LVA for left axilla. Left upper extremity, left breast lymphedema History of Present Illness: Patient is a [...] radiation on 02/03/2022. Onset Date: 11/12/21 Payor: [employer] / Plan: [facility] [employer] / Product Type: HMO / SUBJECTIVE Patient/Caregiver Goals: Manage breast edema Total Visit Count: 6 OBJECTIVE Sozo - Bioimpedance: 11/25/2021: 12.1, 12/19/21: 16.1, 01/10/22: 15.9, 02/25/2022:8.5, 07/04/22: 26.4, 07/29/22: 24.7 Left Upper Extremity Evaluation 07/29/2022 10 cm 17.6 17.6 20 cm 15.8 15.8 30 cm 23.6 23.6 40 cm 24.4 24.4 50 cm 30.7 30.7 60 cm 33 33 Lymph Volume (L) 2407.6 ml Change in Volume (ml) 192.02 ml Change from initial Edema % 8.67 % Humberto Moisture meter: edge of areola R/L superior: 39/60, Medial: 49/66, Inferior:50/64, medial:43/63 Breast: Left breast with mild pitting edema. Mild peau de orange around areola but overall well managed edema Treatment: Patient continues to be followed by her local lymphedema therapist as well as here. She is using a 15-20 mmHg sleeve and glove during the day. I suggested she obtain a 20-30 mmHg. I would like to geta measurement on the bio impedance when she is wearing the sleeve to see how well managed the edemais as currently measurements have been done without compression. In terms of breast edema, this is well managed with a well-fitting bra with a no stretch cup. She needs to use a pad within the cup that is smaller but provides compression to the breast mound duringthe day. Local therapist provided patient with Doug nielson. I suggested she obtain a compression Meeta and use this large pad at night for breast compression. She plans on going to the [facility] after this appointment to obtain a compression bra which she could also use at night. Typically compression bras do not work well during the day secondary to not having a cup and they increase dependent edema in breast mound. She has excellent shoulder range of motion. Assessment 52-year-old woman with well managed left breast edema. She has day and night program for breast swelling. Suggested she obtain a 20-30 mmHg sleeve and glove to use during the day on the upper extremity. At this point she does not need compression at night on the arm. If bio impedance measures are not improve next session may consider nocturnal compression program for upper extremity. She plans onhaving another LV bypass in the future. Functional Goals and Timeframe's: Goal #1: Patient [...] Goal #3 Date: 10/02/22 Goal #3 Status: Progressing Plan TREATMENT PLAN Number of Visits: up to 4 visits Plan: Alter current plan Plan Comments: Follow-up in 2-3 months when she returns for other appointments. Assess upper extremity edema and breast edema modify home program as needed Treatment interventions may include: Therapeutic exercise, Therapeutic functional activity, Self-care/home management Daytime Compression Program: Gauntlet, Arm sleeve, Daytime compression bandaging, Compression bra Daytime Compression Program Additional Details: arm sleeve and glove for left arm 20-30 mmHgr, well-fitting bra with pad Nighttime Compression Program Additional Details: Large Solaris swell spot with either a Meeta or a sports bra 4 DAVE bandage over cotton bra/sports bra with swell spot in place for 23 of 24 hours of wear untilnext appointment with local therapist. OT: Time Spent with Patient Therapeutic Interventions Therapeutic Activity (min): 46 min Time Tracking Total Timed Units (min): 46 min Total Treatment Time (min): 46 min Jeaneth Llamas O.T., [facility] documented in this encounter Plan of Treatment Not on file documented as of this encounter Visit Diagnoses Diagnosis Lymphedema Post Mastectomy documented in this encounter Additional Health Concerns Assessment Noted Time PHQ-9 Depression Total Score: 5 07/30/19 8:44 AM CDT documented as of this encounter
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
--- OUTSIDE RECORDS SUMMARY | 2023-06-19 00:52 | XMS_ITS | Encounter Summary ---
Author Name Unknown Organization [facility] Address [address] [place] [address] Care Team Providers Care Online Advertising Director Name Role Phone Unavailable Primary Care Provider Unavailabl e Reason for Visit * Appointment Request (Routine) - Closed Specialty Diagnoses / Procedures Referred By Cassidy gutierrez Referred To Contact Women's Health Diagnoses ov Procedures ov [facility] Referral ID Status Reason Start Date Expiration Date Visits Re quested Visits Authorized [id number] Closed 07/30/2022 10/25/2022 1 1 Encounter Details Date Type Department Care Team (Late st Contact Info) Description 08/20/2022 9:00 AM CDT Office Visit Menopause and [facility] Clinic in [place], [place] [address] [place] [phone] Rose Ignacio, CARLY, C.N.P., D.N.P. [address] [place] [address] Malignant Neoplasm Of Breast Upper Outer Quadrant Female Left (HCC) (Primary Dx); Atrophy Vagina Due To Estrogen Deficiency; Depressed Mood Social History Tobacco Use Types Packs/Day Years [...] often do you attend chur ch or restorationism services? More than 4 times per year 06/29/2022 Do you belong to any clubs o r organizations such as episcopalian groups, unions, fraternal [...] Answer Date Recorded PHQ-2 Score 2 08/13/2022 [facility] [place] of Occupat ional Health - Occupational Stress [...] or slept in a long-term (including now)? No 06/29/2022 Depression Answer Date [...] as of this encounter Progress Notes * Rose Ignacio APRN, C.N.P., D.N.P. - 08/20/2022 9:00 AM CDT SUBJECTIVE Chief Complain/Reason for Visit Follow up Ms. Uribe is a 52 y.o. female who presents to the clinic for follow up physical exam in setting ofvaginal dryness. She was last seen on 07/29/22. HPI: Briefly, she is currently believed to be in late perimenopause transition or potentially postmenopause and last menstrual period was in 2018 prior to hysterectomy performed due to abnormal uterine bleeding. She has a past medical history of stage IIB invasive ductal carcinoma of the left breast with lymph node involvement status post lumpectomy, chemotherapy, and radiation therapy. She was placedon endocrine therapy with tamoxifen last year. She also has a history of cervical spinal cord injury with quadriplegia in 2017 status post cervical fusion with subsequent neurologic improvement and ability to walk. At her last visit, she endorsed concerns of longstanding sexual dysfunction and possible vaginal dryness with previous itching during yeast infections. She is not been sexually active with her spousein the last three years. She was referred for sex therapy and advised to use a vaginal moisturizer and lubricants for future penetrative sexual activity. She did also previously endorsed hot flashes and we discussed options for treating these such as antidepressants until she switches from tamoxifen to an aromatase inhibitor at which time Paxil could be used if she wishes. Ms. Uribe reports that she just began using a vaginal moisturizer last night. She notes that she felt ???something at her vaginal opening when she applied her vaginal moisturizer. She does feel sheis had more bulging/pressure at the vaginal opening and reports a history of bladder prolapse with prior surgical repair. She denies worsening of her longstanding urge incontinence but does feel she has more urinary urgency as of late. She will be meeting with our sex therapist later this morning. She endorses worsened mood recently due to acute stressors including bone infusion, diarrhea, nausea, sinus infection for which she is on the last day of antibiotics, stress at work, her cat being ill, and her [place] going [place] but her being unable to join. She has had some thoughts of being a burden to her family and feeling like she might be better off not alive. However, she firmly states that she has no desire to harm herself and no plan to harm herself. Her coping mechanisms include her hope, the supportive her family who she has informed of her worsening mood, taking time to rest, and mindfulness with deep breathing and meditation. She is not presently in therapy. ROS: Review of systems negative except as noted in the HPI. I reviewed the [facility] intake and questionnaire. Medications, allergies, past medical history, social history, and family history have been reviewedand updated. OBJECTIVE General: Well-developed, well-nourished; in no acute distress. Constitutional: She appears well. No distress. Pulmonary/Chest: No respiratory distress. Breathing comfortably. Pelvic: External genitalia examined and without lesions, erythema, or masses. Moderate atrophic changes of the vulvar tissue consistent with genitourinary syndrome of menopause. Cystocele does appearto be present. Q tip test negative. Pelvic floor tender to palpation throughout and is hypotonic with extremely weak ability to perform Kegel on request. Psychiatric: She has a normal mood and affect. Neuro: Alert, answering questions appropriately, ambulating with cane Estimated body mass index is 30.26 kg/m?? as calculated from the following: Height as of 07/29/22: 166.8 cm. Weight as of 07/29/22: 84.2 kg. 07/29/2022 8:44 AM 08/13/2022 10:14 AM PHQ9 Score PHQ-9 Total Score (max 27) 5 12 12 07/29/2022 8:45 AM 08/13/2022 10:15 AM GAD7 Score KANDY-7 Total Score (max 21) 2 3 3 ASSESSMENT / PLAN We discussed that vaginal DHEA is approved to treat pain with intercourse. We discussed that DHEA is an androgen, specifically a precursor hormone to testosterone, which is also converted to estrogenin the body, although this appears to take place intracellularly. We discussed that the safety of vaginal DHEA in the setting of breast cancer history is unknown. We discussed that no randomized controlled studies have been done comparing those who use DHEA against those who do not based on breast cancer recurrence. Some studies have not shown increased estrogen blood levels in those using DHEA when on aromatase inhibitors however other studies have shown slight increase in circulating hormonessuch as estrogen. For these reasons we recommend considering the benefit of using DHEA to quality of life versus the possible risk. 1. Malignant Neoplasm Of Breast Upper Outer Quadrant Female Left (HCC) 2. Atrophy Vagina Due To Estrogen Deficiency She was encouraged to consistently apply a vaginal moisturizer. We also discussed the option for her to trial vaginal DHEA after switching to an aromatase inhibitor if she does not have improvement in her vaginal atrophy with use of a moisturizer. Recommend that she consider attending pelvic floor p hysical therapy again as she appears to have ongoing pelvic floor dysfunction, she wishes to wait and plans to speak with her primary care provider and discuss potentially speaking with her urogynecological surgeon again regarding her previous cystocele repair. She expressed understanding and is comfortable with the plan. 3. Depressed Mood It sounds as if she has situational depression with passive suicidal ideations but fortunately no desire or plan to harm herself. She was encouraged to access the Psychology today website to find a therapist. She was also encouraged to consider attending a stress management consultation. She feels she is adequately managing her stressors and worsened mood at this time. We did again discuss potential future use of an antidepressant for hot flashes as well as mood. She will continue to monitor her mood and has agreed to reach out to one of her health care team members if it worsens. PATIENT EDUCATION Ready to learn, no apparent learning barriers were identified; learning preferences include listening. Explained diagnosis and treatment plan; patient expressed understanding of the content. Total visit time greater than 40 minutes, with over 50% spent counseling with the patient and coordination of care activities described above. documented in this encounter Plan of Treatment Not on file documented as of this encounter Visit Diagnoses Diagnosis Malignant Neoplasm Of Breast Upper Outer Quadrant Female Left (HCC)- Primary Atrophy Vagina Due To Estrogen Deficiency Depressed Mood documented in this encounter Additional Health Concerns Assessment Noted Time PHQ-9 Depression Total Score: 12 023 10:14 AM CDT documented as of this encounter
--- OUTSIDE RECORDS SUMMARY | 2023-06-19 00:52 | XMS_ITS | Encounter Summary ---
Author Name Unknown Organization [facility] Address [address] [place] [address] Care Team Providers Care Federal Appellate Clerk Name Role Phone Unavailable Primary Care Provider Unavailabl e Reason for Visit * Reason Onset Date Comments Pre-visit Intake 01/22/2023 Encounter Details Date Type Department Care Team (Latest Contact Info) Description 01/22/2023 10:30 AM CDT Clinical Communication Virtual Review in [place], [place] [address] [place], [place] [phone] Pre-visit Intake Social History Tobacco Use Types [...] often do you attend chur ch or gnosticist services? More than 4 times per year 06/29/2022 Do you belong to any clubs o r organizations such as temple groups, unions, fraternal or athletic groups, or [...] Answer Date Recorded PHQ-2 Score 2 08/13/2022 [facility] of Occupat ional Health - Occupational [...]
--- OUTSIDE RECORDS SUMMARY | 2023-06-19 00:53 | XMS_ITS | Encounter Summary ---
Author Name Unknown Organization [facility] Address [address] [place] [address] Care Team Providers Care Career Information Specialist Name Role Phone Unavailable Primary Care Provider Unavailabl e Reason for Visit * Reason Onset Date Comments Follow-up 06/25/2022 Encounter Details Date Type Department Care Team (Late st Contact Info) Description 06/25/2022 Clinical Communication Department of Radiation Oncology in [place], [place] [address] [place] [address] Fritz Smith M.D. [address] [place] [address] Follow-up Social History Tobacco Use Types Packs/Day Years Used Date Smoking Tobacco: Never Smokeless Tobacco: Never Alcohol Use Standard Drinks/Week Comments Never 0 (1 standard drink = 0.6 oz pur e alcohol) Humiliation, Afraid, Rape, and Kick questionnair e Answer Date Recorded Within the last year, have y ou been afraid of your partner or ex-partner? No 10/31/2021 Within the last year, have y ou been humiliated or emotionally abused in other ways by your partner or ex-partner? No Within the last year, have y ou been kicked, hit, slapped, or otherwise physically hurt by your partner or ex-partner? No 10/31/2021 Within the last year, have y ou been raped or forced to have any kind of sexual activity by your partner or ex-partner? No 10/31/2021 Social Connection and Isolat ion Panel [NHANES] Answer Date Recorded In a typical week, how many times do you talk on the phone with family, friends, or neighbors? More than three times a week 10/31/2021 How often do you get togethe r with friends or relatives? Never 10/31/2021 How often do you attend chur or adventist services? More than 4 times per year 10/31/2021 Do you belong to any clubs o r organizations such as caodaism groups, unions, fraternal or athletic groups, or school groups? No 10/31/2021 How often do you attend meet ings of the clubs or organizations you belong to? Patient declined 10/31/2021 Are you , , di vorced, , never , or living with a partner? 10/31/2021 AUDIT-C Answer Date Recorded Q1: How often do you have a drink containing alc ohol? Never 10/31/2021 Average Number of Drinks Not on file 022 Frequency of Binge Drinking Not on file 10/16 Overall Financial Resource Strain (CARDIA) Answe r Date Recorded How hard is it for you to pa y for the very basics like food, housing, medical care, and heating? Not hard at all 10/31/2021 [facility] - Occupational Stress Questionnaire Answer Date Recorded Do you feel stress - tense, restless, nervous, or anxious, or unable to sleep at night because your mind is troubled all the time - these days? Only a little 10/31/2021 Exercise Vital Sign Answer Date Recorde d On average, how many days pe r week do you engage in moderate to strenuous exercise (like a brisk walk)? 2 days 10/31/2021 On average, how many minutes do you engage in exercise at this level? 30 min 10/31/2021 Hunger Vital Sign Answer Date Recorded Within the past 12 months, y ou worried that your food would run out before you got the money to buy more. Never true 11/01/19 22 Within the past 12 months, t he food you bought just didn't last and you didn't have money to get more. Never true 10/31/2021 PRAPARE - Transportation Answer Date Re corded In the past 12 months, has l ack of transportation kept you from medical appointments or from getting medications? No 10/16 In the past 12 months, has l ack of transportation kept you from meetings, work, or from getting things needed for daily living? No 10/31/2021 Housing Stability Vital Sign Answer Guero e Recorded Unable to Pay for Housing in the Last Year Not o n file 10/31/2021 In the last 12 months, how many places have you lived? 1 10/31/2021 In the last 12 months, was t here a time when you did not have a steady place to sleep or slept in a mcc (including now)? No 10/31/2021 Nutrition Answer Date Recorded Nutrition: EVOO Fat Source Yes 10/31 On average, how many serving s of fruits and vegetables do you eat per day (serving size is equal to 1 cup or approximately the size of a tennis ball)? 0-1 10/31/2021 Dental Answer Date Recorded Dental: Regular Dentist Yes 11/01/19 Employment Answer Date Recorded Employment status Employed and actively working without restrictions 10/31/2021 Education Answer Date Recorded What is the [...] encounter Miscellaneous Notes * Telephone Encounter - Malena Estevez R.N. - 06/25/2022 2:57 PM CST Information Discussed Patient reports that she continues to work with Lymphedema Therapy at [place]. Patient is wondering if she can request prescription for compression bra at her Plastics Surgery appointment on Thursday. I told patient that should not be a problem but that if she is needing any further assistance to call our care team anytime. PLAN Disposition/Recommendation: self-care - appropriate at this time, patient encouraged to call back with questions Information/Education: patient/caller able to teach back Caller agreeable to plan of care: yes The following references were used: nursing clinical judgement OR STAFF PSYCHOLOGIST * Telephone Encounter - Laury Cody - 06/25/2022 8:20 AM CST Caller: Patient Is there a valid authorization to speak with caller? Yes Primary Radiation Oncologist: Dr. Smith Reason for call: Patient is having increased swelling in the left breast around to her back. She has been seeing a lymphedema therapist at [facility] after being referred by Dr. Smith. She would like to talk to someone about a plan and a possible change in a prescription for compression. Phone number: [phone] Is it okay to leave a voicemail on answering machine with test results? Yes Pharmacy (if medication related): N/A Laury Cody OR STAFF PSYCHOLOGIST documented in this encounter Plan of Treatment Not on file documented as of this encounter Visit Diagnoses Not on filedocumented in this encounter
== END 2023-06-18 16:04 | disposition home or self-care (01) ==
LOC: NFLDREF 06-19 00:48
PROVIDERS: PCP Physician Assistant; Referring Provider Physician Assistant; Visit Provider Internal Medicine Hematology & Oncology
DX: C50.412 Malignant neoplasm of upper-outer quadrant of left female breast (principal)
CPT/HCPCS: 80053

== ENCOUNTER 2023-07-04 14:34 | Emergency (ER) | payer BC, SELFPAY ==
[2023-07-04 14:42] VITALS: BP 117/69; PULSE 103; RESP 18; TEMP 36.2; O2SAT 96; BMI 32.4
--- NOTE | 2023-07-04 15:26 | ED.SKABFB ---
HPI - Skin/Abscess/Foreign Bdy General Chief complaint: Skin/Abscess/Foreign Body Stated complaint: Cellulitis on chest Time Seen by Provider: 07/04/23 14:47 History of Present Illness HPI narrative: This 53-year-old female comes in with redness and warmth across her upper chest. She states that her cat was resting on her chest about 4 days ago and scratched her chest incidentally a few times. Since then she has developed redness with warmth and some mild discomfort that she thinks is cellulitis. She states that she has had symptoms like this in the past. She does have a history of breast cancer with left upper extremity lymphedema. She does not report any fevers. Related Data Home Medications Medication Instructions Recorded Confirmed cholecalciferol (vitamin D3) 50 50 mcg PO QDAY 02/03/22 07/04/23 mcg (2,000 unit) capsule levothyroxine 75 mcg tablet 75 mcg PO QDAY 02/03/22 07/04/23 Florify .Route DAILY 02/18/22 05/21/23 cranberry 400 mg capsule 400 mg PO QDAY 02/18/22 07/04/23 loperamide 2 mg tablet (Imodium 2 - 8 mg PO Q6H PRN 09/08/22 07/04/23 A-D) Hair/Skin/Nails Not Applicable DAILY PRN 10/06/22 05/21/23 acetaminophen 500 mg tablet 1,000 mg PO Q6H PRN 02/24/23 07/04/23 (Tylenol Extra Strength) cetirizine 10 mg capsule (Zyrtec) 10 mg PO QDAY PRN 02/24/23 07/04/23 tizanidine 4 mg capsule 4 mg PO TID PRN 05/21/23 07/04/23 duloxetine 30 mg capsule,delayed 30 mg PO DAILY 07/04/23 07/04/23 release Previous Rx's Medication Instructions Recorded abemaciclib 150 mg tablet 150 mg PO DIRECTED #42 tabs 06/04/23 tamoxifen 20 mg tablet 20 mg PO QDAY #90 tabs 06/10/23 cephalexin 500 mg capsule 500 mg PO TID 7 days #21 caps 07/04/23 Allergies Allergy/AdvReac Type Severity Reaction Status Date / Time adhesive Allergy Severe itching Verified 07/04/23 14:45 amoxicillin Allergy Severe Rash, Verified 07/04/23 14:45 trouble breathing vancomycin Allergy Severe rash, Verified 07/04/23 14:45 trouble breathing ciprofloxacin Allergy Intermediate Rash Verified 07/04/23 14:45 Sulfa (Sulfonamide Allergy Intermediate Respiratory Verified 07/04/23 14:45 Antibiotics) distress gabapentin Allergy Mild suicidal Verified 07/04/23 14:45 oxybutynin AdvReac Verified 07/04/23 14:45 Review of Systems Status of ROS: Reports: 10 or more systems reviewed and unremarkable except as noted in History and below Narrative: Constitutional: No fevers, no weight gain or loss. Eyes: No discharge. No vision changes. HENT: No congestion, no sore throat, no ear pain. Cardiovascular: No chest pain, no palpitations. Respiratory: No shortness of breath, no wheezes, no cough. Gastrointestinal: No abdominal pain, no vomiting, no diarrhea. Genitourinary: No dysuria, no hematuria. Musculoskeletal: Normal range of motion. Skin: Erythema in the upper chest with increased warmth and mild pruritus and discomfort. Neurological: No dizziness, weakness, sensory change, speech change. Endo/Heme/Allergies: No bruising or bleeding. No polydipsia. Pysch: no suicidality, no anxiety, no insomnia. All other systems reviewed and are negative. [facility] Medical History (Updated 07/04/23 @ 15:30 by Allan Andrade MD) Urinary tract infection ?N39.0 - Urinary tract infection, site not specified (ICD-10) Urge incontinence of urine ?N39.41 - Urge incontinence (ICD-10) Spinal stenosis of cervical region ?M48.02 - Spinal stenosis, cervical region (ICD-10) Spinal cord injury Sinus bradycardia ?R00.1 - Bradycardia, unspecified (ICD-10) Preglaucoma ?H40.009 - Preglaucoma, unspecified, unspecified eye (ICD-10) Osteoarthritis of cervical spine with myelopathy ?M47.12 - Other spondylosis with myelopathy, cervical region (ICD-10) Orthostatic hypotension ?I95.1 - Orthostatic hypotension (ICD-10) Numbness and tingling in both hands ?R20.0 - Anesthesia of skin (ICD-10) ?R20.2 - Paresthesia of skin (ICD-10) Meniere's disease ?H81.09 - Meniere's disease, unspecified ear (ICD-10) Hypothyroidism ?E03.9 - Hypothyroidism, unspecified (ICD-10) Herniation of intervertebral disc of cervical region ?M50.20 - Other cervical disc displacement, unspecified cervical region (ICD-10) Gastroenteritis ?K52.9 - Noninfective gastroenteritis and colitis, unspecified (ICD-10) Cystocele with uterine prolapse ?N81.4 - Uterovaginal prolapse, unspecified (ICD-10) Acute tetraplegia ?G82.50 - Quadriplegia, unspecified (ICD-10) Dysuria ?R30.0 - Dysuria (ICD-10) Surgical History History of total vaginal hysterectomy (TVH) ?Z90.710 - Acquired absence of both cervix and uterus (ICD-10) History of discectomy ?Z98.890 - Other specified postprocedural states (ICD-10) Social History Smoking Status: Never smoker Do you use any of these nicotine containing products: None Second hand tobacco smoke exposure: No How often do you have a drink containing alcohol: never How often do you have six or more drinks on one occasion: Never AUDIT-C Alcohol total score: 0 Non-prescribed substance use: denies use Caffeine: Yes (occasionally) Are you using contraception or practicing any form of control: No (hysterectomy) Exam Narrative: Exam Narrative: Constitutional: Well-developed, well-nourished, no acute distress. HEENT: Normocephalic, atraumatic. Neck: Normal range of motion. Nontender. Supple. Heart: Intact distal pulses. Lungs: No chest discomfort. No wheezes, rhonchi, or rales. Abdomen: Nontender. Back: Normal range of motion. Extremities: Normal range of motion. No injury. Skin: Intact. Upper chest has erythema with some increased warmth. There is no sign of abscess or drainage. Her skin is intact in this area. Neurologic: No altered sensation. No weakness. Alert and oriented. Psychiatric: No suicidality. No anxiety or depression. No insomnia. Nursing notes and vitals signs are reviewed. Const: Vital Signs, click to edit/add: Vital Signs - 24 hr 07/04/23 14:42 Temperature 97.2 F L Pulse Rate [Pulse Oximeter] 103 H Respiratory Rate 18 Blood Pressure [Ri ght Upper Arm] 117/69 Pulse Oximetry 96 Oxygen Delivery Me thod Room Air Course Vital Signs Vital signs: Initial Vital Signs Temperature 97.2 F L 07/04/23 14:42 Temperature Source Temporal Artery Scan 07/04/23 14:42 Pulse Rate 103 H 07/04/23 14:42 Respiratory Rate 18 07/04/23 14:42 Blood Pressure 117/69 07/04/23 14:42 Blood Pressure Mean 85 07/04/23 14:42 Blood Pressure Position Sitting 07/04/23 14:42 Pulse Oximetry 96 07/04/23 14:42 Oxygen Delivery Method Room Air 07/04/23 14:42 Vital Signs Temperature 97.2 F L 07/04/23 14:42 Pulse Rate 103 H 07/04/23 14:42 Respiratory Rate 18 07/04/23 14:42 Blood Pressure 117/69 07/04/23 14:42 Pulse Oximetry 96 07/04/23 14:42 Oxygen Delivery Method Room Air 07/04/23 14:42 Temperature 97.2 F L 07/04/23 14:42 Pulse Rate 103 H 07/04/23 14:42 Respiratory Rate 18 07/04/23 14:42 Blood Pressure 117/69 07/04/23 14:42 Pulse Oximetry 96 07/04/23 14:42 Oxygen Delivery Method Room Air 07/04/23 14:42 MDM - Skin/Abscess/Foreign Bdy MDM Narrative Medical decision making narrative: This patient comes in with redness across her upper chest after her CT was laying there for a while and incidentally scratched her a few times in the process in this area. She does have symptoms that may be indicating a cellulitis. The patient states that she has had symptoms like this in the past that did not respond to steroid creams or antihistamines but did respond to an antibiotic. The patient did receive a prescription for Keflex. Discharge Plan Discharge Clinical Impression: Cellulitis Patient Disposition: Home, Self-Care Condition: Stable Additional Instructions: Take medication as prescribed. Follow up with MD return if worsening. Prescriptions: New cephalexin 500 mg capsule 500 mg PO TID 7 Days Qty: 21 0RF No Action acetaminophen [Tylenol Extra Strength] 500 mg tablet 1,000 mg PO Q6H PRN Zyrtec 10 mg capsule 10 mg PO QDAY PRN tizanidine 4 mg capsule 4 mg PO TID PRN levothyroxine 75 mcg tablet 75 mcg PO QDAY cholecalciferol (vitamin D3) 50 mcg (2,000 unit) capsule 50 mcg PO QDAY Florify tablet .Route DAILY Rx Instructions: Melaleuca, daily probiotic cranberry 400 mg capsule 400 mg PO QDAY Rx Instructions: administer with a meal Hair/Skin/Nails Not Applicable DAILY PRN Patient Comments: Melaleuca loperamide [Imodium A-D] 2 mg tablet 2 - 8 mg PO Q6H PRN duloxetine 30 mg capsule,delayed release(DR/EC) 30 mg PO DAILY abemaciclib 150 mg tablet 150 mg PO DIRECTED Qty: 42 1RF Rx Instructions: Take 1 tablet once a day alternating with 1 tablet twice daily, every other day. tamoxifen 20 mg tablet 20 mg PO QDAY Qty: 90 3RF Follow Up/Referrals: Linda Velez PA-C [Primary Care Provider] - Stand Alone Forms: [employer] Info Instructions
--- OUTSIDE RECORDS SUMMARY | 2023-07-04 16:01 | XMS_ITS | Continuity of Care Document ---
Author Name Unknown Organization [facility] Address [address] [place] [address] Phone Care Team Providers Care Dehydration Unit Operator Name Role Phone Gabrielle Rodriguez MD [...] EST Phone Office/Outpatient Visit,New, Mod 2022 Office/Outpatient Visit,[facility], Mod 2018 X-Ray Exam Of Spine, [...] EST Phone [facility], [address], [place], [place], [id number] , [place] tel: [phone] [facility] No Information 3 Michael Anthony. [facility] [place], [address] [place] [address], [address], [place], [address], [place]. tel: [phone] Referring Provider: Lorenzo Dc, [facility] [address] [place] [address], [address], [address]. tel:[phone] Office/Outpa tient Visit,New, Mod [facility], [address], [place], [place], [id number] , [place] tel:[phone] [facility] Spinal stenosis, lumbar region with neurogenic claudication 3 Michael Anthony. [facility], [address] [place] [address], [address], [place], [address], [place]. [phone] Referring Provider: Lorenzo Dc, [facility] [address], [address], [address]. tel:[phone] Office/Outpa tient Visit,Est, Mod [facility], [address], [place], [place], [id number] , [place] tel: [phone] [facility] Encounter for follow-up examination after completed treatment for conditions other than malignant neoplasmSpinal stenosis, lumbar region with neurogenic claudication 9 Dcebony Alcazar er. [facility] [place], [address], [address], [place], [place], [id number] , [place]. tel: [phone] Referring Provider: Lorenzo Dc, [facility] [place] [address], [address], [place], [address]. tel:[phone] Office/Outpa tient Visit,Est, Mod [facility], [address], [place], [place], [id number] , [place] tel: [phone] [facility] Encounter for other specified surgical aftercare 9 Dcebony Alcazar er. [facility], [address] [place] [address], [address], [facility] [place], [place], [id number] , [place]. tel:[phone] Referring Provider: Rachelle Canela [facility] [address] [place], [address]. tel:[phone] Office/Outpa tient Visit,Est, Mod [facility], [address], [place], [place], [id number] , [place] tel: [phone] [facility] Encounter for other specified surgical aftercare 8 Dao Alcazar er. [facility], [address], [address], [place], [place], [id number] , [place]. tel:[phone] Referring Provider: Rachelle Canela [facility] [address] [place], [address]. [phone] Office/Outpa tient Visit,Est, Mod [facility], [address], [place], [place], [id number] , [place] tel: [phone] [facility] Encounter for other specified surgical aftercare Dao zapata. [facility] [place], [address], [address], [place], [place], [id number] , [place]. tel: [phone] Referring Provider: Rachelle Canela [facility] [address] [place], [address]. tel:[phone] [facility], [address], [place], [place], [id number] , [place] tel: [phone] [facility] Encounter for other specified surgical aftercare Dao zapata. [facility], [address] [place] [address], [address], [place], [place], [id number] , [place]. tel: [phone] Referring Provider: Rachelle Canela [facility] [address] [place], [address]. tel:[phone] [facility], [address], [place], [place], [id number] , [place] tel: [phone] [facility] No Information Dao zapata. [facility], [address], [address], [place], [place], [id number] , [place]. tel: [phone] Referring Provider: Rachelle Canela [facility] [address] [place], [address]. tel:[phone] Office/Outpa tient Visit,Est, Mod [facility], [address], [place], [place], [id number] , [place] tel: [phone] [facility] Spinal stenosis, cervical region Dao zapata. [facility] [place], [address] [place] [address], [address], [place], [place], [id number] , [place]. tel:[phone] Referring Provider: Rachelle Canela [facility] [address] [place], [address]. tel:[phone] Office/Outpa tient Visit,Est, Mod [facility], [address], [place], [id number] , [place] [phone] [facility] Spinal stenosis, cervical regionCervical disc disorder at C5-C6 level with myelopathy 7 Dao zapata. [facility] [place], [address], [address], [place], [id number] , [place]. [phone] Referring Provider: Rachelle Canela [facility] [address] [place], [address]. tel:[phone] Office/Outpa tient Visit,New, Mod [facility], [address], [place], [id number] , [place] tel:[phone] [facility] Spinal stenosis, cervical regionCervical disc disorder at C5-C6 level with myelopathy 7 Riki Hodges. [facility] [place], [address] [place] [address] [address], [place], [id number] , [place]. tel:[phone] Referring Provider: Rachelle Canela [facility] [address] [place], [address]. tel:[phone] Family History Family Member Type Diagnosis Age At Onset No Information Payers Payer name Insurance type Covered green party ID Authoramanda hubbard(s) [id number] [facility] [id number] Social History Type Description Quantity Date Captured [...]
--- OUTSIDE RECORDS SUMMARY | 2023-07-04 16:02 | XMS_ITS | Encounter Summary ---
Author Name Unknown Organization [facility] Address [address] [place] [address] Care Team Providers Care Pediatric Pathologist Name Role Phone None Reported, Pcp Primary Care Provider Unavail able Encounter Details Date Type Department Care Team (Latest Contact Info) Description 05/07/2023 Clinical Communication Department of Physical Medicine and Rehabilitation in [place], [place] [address] [place] [address] Jeaneth Llamas, O.T., [facility] [address] [place] [address] Social History Tobacco Use Types Packs/Day Years [...] How often do you attend chur or druze services? More than 4 times per year 06/29/2022 Do you belong to any clubs o r organizations such as anabaptist groups, unions, fraternal [...] Answer Date Recorded PHQ-2 Score 2 08/13/2022 [facility] - Occupational [...] encounter Miscellaneous Notes * Telephone Encounter - Jeaneth Llamas O.T., CLT-KATHY - 05/08/2023 12:35 PM CST Spoke to patient by phone. I will mail her prescription to her address on file and she will get a hold of metal fitters and machinists in [facility]. LLOGRAPHER * Telephone Encounter - Nahomi Shannon - 05/07/2023 1:02 PM CST Jeaneth/Agnes Joceline called in this afternoon regarding her orders for lymphedema sleeve and glove. When she went to the [facility] in [place], they were missing the order for the glove. Also, she mentionedthe person there wasn't able to measure her correctly, so she thinks she may need the orders faxed over to [facility]. I told her I'd send a message to you both for one of you to reach out to her to discuss the situation and next steps further. Could one of you please give her a call? Best number to reach her at is [phone]. Thank you. LLOGRAPHER documented in this encounter Plan of Treatment Upcoming Encounters Date Type Department Care Team (Latest Contact Info) Description 09/15/2023 1:00 PM CDT Office Visit Division of Plastic Surgery in [place], [place] [address] [place] [address] Eber Saravia M.D. [address] [place] [address] 09/15/2023 2:30 PM CDT Comprehensive Visit Department of Physical Medicine and Rehabilitation in [place], [place] [address] [place] [address] Eber Saravia M.D. [address] [place] [address] Jeaneth Llamas O.T., ALICE [address] [place] [address] documented as of this encounter Visit Diagnoses Not on filedocumented in this encounter Additional Health Concerns Infection Onset Date Last Indicated Resolved Time Protective Environment 09/04/2022 09/04/2022 Assessment Noted Time PHQ-9 Depression Total Score: 12 023 10:14 AM CDT documented as of this encounter Care Teams Pediatric Pathologist Relationship Specialty Start Date End Date None Reported, Pcp PCP - General Family Medicine 02/09/23 documented as of this encounter
--- OUTSIDE RECORDS SUMMARY | 2023-07-04 16:02 | XMS_ITS | Clinical Summary ---
Author Name Unknown Organization [facility] Address [address] [place] [address] Care Team Providers Care Field Control Inspector Name Role Phone None Reported, Pcp Primary Care Provider Unavail able Source Comments Patient records contain information from all sites at [facility]. For routine questions regarding patient records, call [phone] during business hours, M-F 8:00 AM - 5:00 PM Central Time. Record requests for emergency care only can be directed to [phone] at any time.[facility] Allergies Active Allergy Reactions Criticality Noted Date [...] with 1 twice daily 0 06/11/2022 Active lfxhwxqu-uye-zlgeu acid-biotin (Hair,Skin and Nails,FA-biotin,) 133.3 mcg- 1,666.7 [...] Overview: Added automatically from request for surgery [id number] Added automatically from request for surgery [id number] Malignant Neoplasm Of Breast Upper Outer Quadrant Female Left 10/23/2021 Cancer Staging:Pathologic stage from 04/25/2021:Stage IIB(pT2, pN2a, cM0, G3, ER+, VA+, HER2-) - Unsigned Other Cervical Disc Displace ment Unspecified Cervical Region 12/10/2016 Hypothyroidism 08/05/2010 Meniere's Disease Right 08/05/2010 Resolved Problems Problem Noted Date Diagnosed Date Resolved Date Quadriplegia 08/16/2021 01/28/2023 Encounters Date Type Department Care Team Description 07/02/2023 Orders Only Division of Gastroenterology in [place], [place] [address] [place] [address] Carlos Serrano M.D. Genetic Susceptibility To Disease 05/07/2023 Clinical Communication Department of Physical Medicine and Rehabilitation in [place], [place] [address] [place] [address] Jeaneth Llamas O.T., [facility] from Last 3 Months Immunizations Name Administration [...] Brother 2 Tyler Father Hardy Maternal Grandfather Jayden Mother Mariam Paternal Grandmother Macy Sister Katherine [...] How often do you attend chur or oriental orthodox services? More than 4 times per year 06/29/2022 Do you belong to any clubs o r organizations such as jain groups, unions, fraternal or athletic groups, or [...] Answer Date Recorded PHQ-2 Score 2 08/13/2022 [facility] - Occupational Stress Questionnaire Answer Date [...] 02/09/2023 7:10 AM CDT Plan of Treatment Upcoming Encounters Date Type Department Care Team (Latest Contact Info) Description 09/15/2023 1:00 PM CDT Office Visit Division of Plastic Surgery in [place], [place] [address] [place] [address] Eber Saravia M.D. [address] [place] [phone] 09/15/2023 2:30 PM CDT Comprehensive Visit Department of Physical Medicine and Rehabilitation in [place], [place] [address] [place] [address] Eebr Saravia M.D. [address] [place] [phone] Jeaneth Llamas, OYeT., [facility]ATHY [address] [place] [address] Health Maintenance Due Date Last Done Comments CT Colonography 1969 Cologuard 1969 FIT 1969 Hepatitis B Vaccines (1 of 3 - 3-dose series) 1969 Hepatitis C Screening 1969 Pneumococcal vaccine (0-64 years) (1 of 2 - PCV) 1975 Mammogram 11/07/2022 11/07/2021, 01/2021, 04/25/2021, Additional history exists COVID-19 Vaccine ( - 2022- season) 2023 02/17/2022, 05/14/2021, 09/28/2020, Additional history [...] this topic Medical Devices Implanted Type Area Retail Sales Associate Bilingual Device Identifier Shelf Expiration Date Model / Serial / Lot Hardware E.G. Pins/Screws/R ods Hardware e.g. pins/screws/ rods Mouth Description:Dental implants Clp Hrzn Ti 6 Clp Sm Red - [id number] Implanted:Qty : 1 on 11/12/2021 by Jennifer Berger D.O. at [facility] Hardware e.g. pins/screws/ rods [employer] [id number] 06/03/2026 [id number] / / [id number] Clp [place] Ti Spr Mcr 1.5 - [id number] Implanted:Qty : 1 on 02/09/2023 by Eber Saravia M.D. at [facility] Hardware e.g. pins/screws/ rods Synovis [id number] / / Imaging Marker Imaging Marker Breast Additional Health Concerns Infection Onset Date Last Indicated Protective Environment 09/04/2022 3 Advance Directives For more information, please contact: [phone] Latest Code Status on File Code Status Date Activated Date Inactivated Comments Full Code 11/12/2021 7:28 AM 11/12/2021 9:42 PM Question Answer Comments Full Code: Not Discussed Due to: Not medically appropriate Care Teams Field Control Inspector Relationship Specialty Start Date End Date None Reported, Pcp PCP - General Family Medicine 02/09/23
--- OUTSIDE RECORDS SUMMARY | 2023-07-04 16:02 | XMS_ITS | Clinical Summary ---
Author Name Unknown Organization [facility] Address [place], [place] [address] Care Team Providers Care Wellness Nurse Name Role Phone Sandy Martins MD Unavailable [phone] Linda Velez Primary Care Provider [phone] Allergies Active Allergy Reactions Criticality Noted Date [...] End Date Status tamoxifen (NOLVADEX) 20 mg tabletIndications:Francia gnant neoplasm of left breast in female, estrogen receptor positive, unspecified site of breast (HC) Take 1 Tablet (20 mg) by mouth once daily. 90 Tablet 3 10/11/2021 Active abemaciclib (VERZENIO) 150 mg tablet twice a day 0 02/14/2022 Active Cranberry 400 mg capsule every day 0 02/18/2022 Active L.acidoph-L.rhamn-B.bi f-B.long (Probiotic Acidophilus Biobeads) 12.9 mg (2 billion cell) TbEC once daily. 0 02/18/2022 Active tamoxifen (NOLVADEX) 10 mg tablet .d 0 [...] 0 02/23/2023 Active predniSONE (DELTASONE) 20 mg tabletIndications:Acut e midline low back pain without sciatica Take 3 tablets by mouth for 3 days then 2 tablets by mouth for 3 days then 1 tablet by mouth for 3 days then 1/2 tablet by mouth for 3 days. Take with food. 20 Tablet 0 05/19/2023 Active tiZANidine (ZANAFLEX) 4 mg tabletIndications:Acut e midline low back pain without sciatica Take 1 Tablet (4 mg) by mouth every 8 hours if needed for Muscle Spasm. 30 Tablet 1 05/19/2023 Active levothyroxine (SYNTHROID) 75 mcg tabletIndications:Hypo thyroidism (acquired) Take 1 Tablet (75 mcg) by mouth once daily. 90 Tablet 3 06/04/2023 Active DULoxetine (CYMBALTA) 30 mg Delayed-release capsuleIndications:Landon n Take 1 Capsule (30 mg) by mouth once daily. 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 Secondary and unspecified ma [...] Department Care Team Description 06/05/2023 10:45 AM 3D ANIMATOR Office Visit [place] [address] [place] [phone] Alisha Arboelda, Follow Up 06/04/2023 Orders Only [address] [address] Linda Velez PA <No scans attached> 06/04/2023 Travel 06/03/2023 4:05 PM 3D ANIMATOR Office Visit [address] [address] Linda Velez PA Medication Management (refill) 06/03/2023 Travel 05/19/2023 2:10 PM 3D ANIMATOR Office Visit [address] [address] Linda Velez PA Rash (X 10 days RASH ON x 4 week FOOT AND BACK PAIN, patient was seen at on 05/13/23 and was treated ); Fall (Patient fell on thanksgiving and onto LT HIP ) 05/19/2023 Travel 05/05/2023 Telephone [facility] [address] [place] [address] Linda Velez PA Form from Last 3 Months Immunizations Name Administration Dates Next Due COVID-19 vaccine ([employer]kin[employer]s-Bio NTech 30mcg/0.3mL) PF, MDV 09/29/2020,09/07/2020 Influenza RIV4 (Age [...] Comments Blood Pressure 134/64 06/05/2023 10:40 AM 3D ANIMATOR Pulse 76 06/05/2023 10:40 AM 3D ANIMATOR Temperature 37 ??C (98.6 ??F) 05/19/2023 2:07 PM 3D ANIMATOR Respiratory Rate 20 11/01/2021 1:48 PM CDT Oxygen Saturation 98% 06/05/2023 10:40 AM 3D ANIMATOR Inhaled Oxygen Concentration - - Weight 90.3 kg (199 lb) 06/03/2023 4:09 PM 3D ANIMATOR Height 165.1 cm (5' 5) 06/03/2023 4:09 PM 3D ANIMATOR Body Mass Index 33.12 06/03/2023 4:09 PM 3D ANIMATOR Plan of Treatment Upcoming Encounters Date Type Department Care Team (Late st Contact Info) Description 06/10/2024 10:45 AM 3D ANIMATOR [facility] [address] [place] [address] Alisha Arboleda DO [address] [place], [place] [phone] Health Maintenance Due Date Last Done Comments Pneumococcal series for age 6-64 (1 of 2 - PCV) 1975 HIV for age 15-65 1984 Hepatitis C screening for ag e 18-79 1987 Colonoscopy through age 75 2014 COVID-19 vaccine series (2022- season) 2023 02/17/2022, 05/14/2021, 09/29/2020, Additional history exists Influenza for age 50-64 01/16/2023 05/05/20, 04/06/2020, 04/09/2018, Additional history exists Mammogram for age 45-75 08/15/2023 08/15/19 23, 11/09/2021 (Verified in Care Everywhere or Patient Record), 03/15/2021, Additional history exists BMI (ht and wt on same day) for age 18+ 06/03/2024 06/03/2023, 05/19/2023, 11/07/2022, Additional history exists Depression screening for age 12+ 06/05/2024 06/05/2023, 06/03/2023, 06/13/2022, Additional history exists Tetanus booster 12/02/2026 12/02/2016, 05/19, 06/11/2004 (Completed outside of [facility]), Additional history exists Lipids for age 45-75 06/10/2027 06/10/2022, 01/22/2021, 08/11/2011, Additional history exists Tdap Completed 12/02/2016 Zoster (shingles) series for age 50+ Completed 05/07/2021, 03/07/2021 Medical Devices Implanted Type Area Child Care Assistant Device Identifier Shelf Expiration Date Model / Serial / Lot [id number] Implanted:Qty: 1 on 12/10/2016 by Lorenzo Dc MD at [facility] Explanted:at [facility] (Quantity not on file) N/A: Spine [employer] 02/20/2019 [id number] / [id number] / Description:SERV FEE BIO AVS CERV 4 DEG [place] [id number] one Matrix 1cc [place] Plus Paste Dbm Implanted:Qty: 1 on 12/10/2016 by Lorenzo Dc MD at [facility] Explanted:at [facility] (Quantity not on file) N/A: Spine Medtronic Spine/Ortho 07/02/2018 [id number] / [id number] / Port W/8fr 1 Lumen Powerport - [id number] Implanted:Qty: 1 on 05/21/2021 by Katherine Hawthorne MD at [facility] Right: Jugular Vein [employer] 10/15/2022 [id number] / / [id number] Procedures Procedure Name Priority Date/Time Associated Diagnosis Comments TSH Routine 06/03/2023 4:34 PM 3D ANIMATOR Congenital 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 from Last 3 Months Results * TSH (06/03/2023 4:34 PM 3D ANIMATOR) TSH 3.03 0.27 - 4.20 uIU/mL 06/03/2023 9:49 PM 3D ANIMATOR [facility] Blood BLOOD SPECIMEN / Unknown Capillary / Unknown 06/03/2023 4:34 PM 3D ANIMATOR 06/03/2023 4:34 PM 3D ANIMATOR Narrative [facility] - 06/03/2023 9:49 PM 3D ANIMATOR In Adults, TSH values between 5.00 and 10.00 uIU/ml do not necessarily indicate the presence of Hypothyroidism. Correlation with clinical findings such as presence of goiter and/or Thyroperoxidase (TPO) Antibody may be helpful. For more information please refer to RAHEEM 2004; 291: 228-238. Linda BOLDEN CHEMISTRY [facility] [address] [place] [address], from Last 3 Months Advance Directives Latest [...] Code Status Discussion: Not Discussed Care Teams Wellness Nurse Relationship Specialty [place] [address] [place] [address] PCP - General Physician Art Psychotherapist Or Therapist 06/13/22 Sandy Martins MD [address] [place] [address] Medical Oncologist Oncology 03/29/21
--- OUTSIDE RECORDS SUMMARY | 2023-07-04 16:02 | XMS_ITS | Encounter Summary ---
Author Name Unknown Organization [facility] Address [address] [place] [address] Care Team Providers Care Concrete Pouring Supervisor Name Role Phone None Reported, Pcp Primary Care Provider Unavail able Encounter Details Date Type Department Care Team (Late st Contact Info) Description 07/02/2023 Orders Only Division of Gastroenterology in [place], [place] [address] [place] [phone] Carlos Serrano M.D. [address] [place] [phone] Genetic Susceptibility To Disease Social History Tobacco Use Types Packs/Day Years [...] How often do you attend chur or samaritan services? More than 4 times per year 06/29/2022 Do you belong to any clubs o r organizations such as yazidism groups, unions, fraternal [...] Answer Date Recorded PHQ-2 Score 2 08/13/2022 [facility] [...] as of this encounter Plan of Treatment Upcoming Encounters Date Type Department Care Team (Latest Contact Info) Description 09/15/2023 1:00 PM CDT Office Visit Division of Plastic Surgery in [place], [place] [address] [place] [address] Eber Saravia M.D. [address] [place] [address] 09/15/2023 2:30 PM CDT Comprehensive Visit Department of Physical Medicine and Rehabilitation in [place], [place] [address] [place] [address] Eber Saravia M.D. [address] [place] [phone] Jeaneth Llamas O.T., T-KATHY [address] [place] [phone] documented as of this encounter Procedures Procedure Name Priority Date/Time Associated Diagnosis Comments EXT TAPESTRY Routine 04/01/2022 12:00 AM MODEL MAKER PLASTIC Genetic Susceptibility To Disease documented in this encounter Results * EXT Tapestry (04/01/2022 12:00 AM MODEL MAKER PLASTIC) Gene Studied BRCA1,BRCA2,MLH1,MSH 2, MSH6,PMS2,EPCAM,APOB,L DLR,LDLRAP1,PCSK9 04/30/2022 12:00 AM MODEL MAKER PLASTIC DANNY Genetic Disease Assessed Evaluation of 11 genes associated with Hereditary Breast and Ovarian Cancer, Westfall Syndrome and Familial Hypercholesterolemia. 04/30/2022 12:00 AM MODEL MAKER PLASTIC DANNY Genetic Analysis Overall Interpretation Negative results through Tapestry do not replace diagnostic testing for patients with a personal or family history of cancer/hypercholestero lemia due to limitations with methodology. Consider a referral to a genetic counselor for diagnostic testing if warranted. 04/30/2022 12:00 AM MODEL MAKER PLASTIC DANNY Genetic Analysis Report See Tapestry PDF Report No actionable gene changes were detected in the genes that cause Familial Hypercholesterolemia. The genes tested for this condition were APOB, LDLR, LDLRAP1, and PCSK9.No actionable gene changes were detected in the genes that cause Hereditary Breast and Ovarian Cancer. The genes tested for this condition were BRCA1 and BRCA2.No actionable gene changes were detected in the genes that cause Westfall Syndrome. The genes tested for this condition were MLH1, MSH2, MSH6, PMS2 and EPCAM. DNA extracted from this individual's sample was captured and enriched using a custom set of reagents ([employer]+ chemistry). Targeted regions were sequenced using an Illumina DNA sequencing system. Your sequence was matched to a modified version of the industry standard reference genome (GRCh38). Variant calling was completed using a customized version of [employer]'s [employer] software, requiring 20x coverage for validated variant calls. Copy Number Variants (CNVs) were called using a proprietary bioinformatics pipeline that compared the coverage profile of your sample with the coverage profiles of other reference set samples. [facility] AT Internet then analyzed the generated variant data for the exons and 10 bp of flanking intronic sequence (and select tagged intronic variants) of the 11 genes included in dax [place]arna from the [employer] Database. Your sample was reviewed for single nucleotide variants (SNVs), indels up to 20 bp in length, and CNVs that are known or predicted to be actionable. NOTE: This assay has limited sensitivity to CNVs smaller than a few exons. APOB, PCSK9, and LDLR interpretation and reporting is specific to the Familial Hypercholesterolemia phenotype. Variants associated with other phenotypes such as Hypobetalipoproteinemi a are not included. Some known complex variants like the inversion of exons 1-7 in the MSH2 gene (Larissa inversion), exons 11-15 of the PMS2 gene, or variants within or immediately adjacent to long homopolymer runs are not analyzed or reported. There are regions that are not covered, such as deep intronic, promoter, and enhancer regions. This assay cannot detect all variants known to increase disease risk. Other clinical diagnostic testing for these conditions could identify variants not detected by this test. If you have had previous testing, these results should be taken into consideration during risk assessments and medical management. 04/30/2022 12:00 AM MODEL MAKER PLASTIC DANNY Human Reference Sequence Assembly GRCh38 04/30/2022 12:00 AM MODEL MAKER PLASTIC DANNY Saliva (Mouth) 04/01/2022 Carlos Serrano M.D. LAB GENETI C TESTING [place] [address] [facility], [address] [place] [address], [facility] [employer] [address] [facility], [address] [place] [address] documented in this encounter Visit Diagnoses Diagnosis Genetic Susceptibility To Disease documented in this encounter Additional Health Concerns Infection Onset Date Last Indicated Resolved Time Protective Environment 09/04/2022 09/04/2022 Assessment Noted Time PHQ-9 Depression Total Score: 12 023 10:14 AM CDT documented as of this encounter Care Teams Concrete Pouring Supervisor Relationship Specialty Start Date End Date None Reported, Pcp PCP - General Family Medicine 02/09/23 documented as of this encounter
--- OUTSIDE RECORDS SUMMARY | 2023-07-04 16:02 | XMS_ITS ---
Author Name Unknown Organization [facility] Address [address] [place] [address] Care Team Providers Care Middle School Science Teacher Name Role Phone Unavailable Unavailable Unavailable Surgery Details Not on file Complications Check Surgery Details section. Procedure Estimated Blood Loss Check Surgery Details section. Procedure Findings Check Surgery Details section. Procedure Specimens Taken Check Surgery Details section.
--- OUTSIDE RECORDS SUMMARY | 2023-07-04 16:02 | XMS_ITS | Encounter Summary ---
Author Name Unknown Organization [facility] Address [address] [place] [address] Care Team Providers Care Supervisor Research Kennel Name Role Phone None Reported, Pcp Primary Care Provider Unavail able Encounter Details Date Type Department Care Team (Late st Contact Info) Description 02/20/2023 Clinical Communication Division of Plastic Surgery in [place], [place] [address] [place] [phone] Eber Saravia M.D. [address] [place] [phone] Social History Tobacco Use Types Packs/Day Years [...] How often do you attend chur or voodoo services? More than 4 times per year 06/29/2022 Do you belong to any clubs o r organizations such as moravian groups, unions, fraternal [...] Answer Date Recorded PHQ-2 Score 2 08/13/2022 [facility]at ional [facility] - Occupational Stress Questionnaire Answer Date Recorded [...] Office Visit Division of Plastic Surgery in [place], [place] [address] [place] [address] Eber Saravia M.D. [address] [place] [address] 09/15/2023 2:30 PM CDT Comprehensive Visit Department of Physical Medicine and Rehabilitation in [place], [place] [address] [place] [phone] Eber Saravia M.D. [address] [place] [phone] Jeaneth Llamas O.T., [facility] [address] [place] [phone] documented as of this encounter Visit Diagnoses Not on filedocumented in this encounter Additional Health Concerns Infection Onset Date Last Indicated Resolved Time Protective Environment 09/04/2022 09/04/2022 Assessment Noted Time PHQ-9 Depression Total Score: 12 08/13/ 023 10:14 AM CDT documented as of this encounter Care Teams Supervisor Research Kennel Relationship Specialty Start Date End Date None Reported, Pcp PCP - General Family Medicine 02/09/23 documented as of this encounter
--- OUTSIDE RECORDS SUMMARY | 2023-07-04 16:02 | XMS_ITS | Referral Summary ---
Author Name Unknown Organization [facility] Address [address] [place] [address] Care Team Providers Care Nurse Instructor Name Role Phone None Reported, Pcp Primary Care Provider Unavail able Source Comments Patient records contain information from all sites at [facility]. For routine questions regarding patient records, call [phone] during business hours, M-F 8:00 AM - 5:00 PM Central Time. Record requests for emergency care only can be directed to [phone] at any time.[facility] Encounters Date Type Department Care Team Description 07/02/2023 Orders Only Division of Gastroenterology in [place], [place] [address] [place] [phone] Carlos Serrano M.D. Genetic Susceptibility To Disease 05/07/2023 Clinical Communication Department of Physical Medicine and Rehabilitation in [place], [place] [address] [place] [phone] Jeaneth Llamas O.T., [facility] from Last 3 Months Allergies Active Allergy [...] with 1 twice daily 0 06/11/2022 Active iewjjyve-xlt-lmetp acid-biotin (Hair,Skin and Nails,FA-biotin,) 133.3 mcg- 1,666.7 [...] Overview: Added automatically from request for surgery [id number] Added automatically from request for surgery [id number] Malignant Neoplasm Of Breast Upper Outer Quadrant Female Left 10/23/2021 Cancer Staging:Pathologic stage from 04/25/2021:Stage IIB(pT2, pN2a, cM0, G3, ER+, MD+, HER2-) - Unsigned Other Cervical Disc Displace [...] any clubs o r organizations such as tenriism groups, unions, fraternal or athletic groups, or [...] Answer Date Recorded PHQ-2 Score 2 08/13/2022 [facility] Occupat ional Health - Occupational Stress [...] Office Visit Division of Plastic Surgery in [place], [place] [address] [place] [address] Eber Saravia M.D. [address] [place] [phone] 09/15/2023 2:30 PM CDT Comprehensive Visit Department of Physical Medicine and Rehabilitation in [place], [place] [address] [place] [address] Eber Saravia M.D. [address] [place] [phone] Jeaneth Llamas O.T., [facility] [address] [place] [phone] Medical Devices Implanted Type Area Chief Architect Device Identifier Shelf Expiration Date Model / Serial / Lot Hardware E.G. Pins/Screws/R ods Hardware e.g. pins/screws/ rods Mouth Description:Dental implants Clp Hrzn Ti 6 Clp Sm Red - [id number] Implanted:Qty : 1 on 11/12/2021 by Jennifer Berger D.O. at [facility] Hardware e.g. pins/screws/ rods [employer] [id number] 06/03/2026 [id number] / / [id number] Clp [place] Ti Spr Mcr 1.5 - [id number] Implanted:Qty : 1 on 02/09/2023 by Eber Saravia M.D. at [facility] Hardware e.g. pins/screws/ rods Synovis [id number] / / Imaging Marker Imaging Marker Breast Additional Health Concerns Infection Onset Date Last Indicated Protective Environment 09/04/2022 3 Advance Directives For more information, please contact: [phone] Latest Code Status on File Code Status Date Activated Date Inactivated Comments Full Code 11/12/2021 7:28 AM 11/12/2021 9:42 PM Question Answer Comments Full Code: Not Discussed Due to: Not medically appropriate Care Teams Nurse Instructor Relationship Specialty Start Date End Date None Reported, Pcp PCP - General Family Medicine 02/09/23
--- OUTSIDE RECORDS SUMMARY | 2023-07-04 16:02 | XMS_ITS | Encounter Summary ---
Author Name Unknown Organization [facility] Address [address] [place] [address] Care Team Providers Care Barber Name Role Phone None Reported, Pcp Primary [...] often do you attend chur ch or rastafarian services? More than 4 times per year 06/29/2022 Do you belong to any clubs o r organizations such as scientology groups, unions, fraternal or athletic groups, or [...] Date Recorded PHQ-2 Score 2 08/13/2022 [facility] of Occupat ional [facility] - Occupational Stress Questionnaire Answer Date Recorded [...] Office Visit Division of Plastic Surgery in [place], [place] 200 [place] [address] Eber Saravia M.D. 200 [place] [address] 09/15/2023 2:30 PM CDT Comprehensive Visit Department of Physical Medicine and Rehabilitation in [place], [place] [address] [place] [address] Eber Saravia M.D. [address] [place] [phone] Jeaneth Llamas O.T., CLT-KATHY [address] [place] [phone] documented as of this encounter Procedures Procedure [...] documented as of this encounter Care Teams Barber Relationship Specialty Start Date End Date None Reported, Pcp PCP - General Family Medicine 02/09/23 documented as of this encounter
--- OUTSIDE RECORDS SUMMARY | 2023-07-04 16:02 | XMS_ITS | Encounter Summary ---
Author Name Unknown Organization [facility] Address [address] [place] [address] Care Team Providers Care Secret Service Agent Name Role Phone None Reported, Pcp Primary Care Provider Unavail able Reason for Visit * Occupational Therapy (Routine) - Closed Specialty Diagnoses / Procedures Referred By Cassidy t Referred To Contact Diagnoses Lymphedema Post Mastectomy Procedures OT Evaluate and treat Rst Pmr Roei [address] [place] [phone] [facility] Referral ID Status Reason Start Date Expiration Date Visits Re quested Visits Authorized [id number] Closed 07/29/2022 07/30/2023 1 1 Encounter Details Date Type Department Care Team (Latest Contact Info) Description 02/12/2023 7:30 AM CDT Comprehensive Visit Department of Physical Medicine and Rehabilitation in [place], [place] [address] [place] [phone] Eber Saravia M.D. [address] [place] [phone] Jeaneth Llamas O.T., [facility] [address] [place] [phone] Lymphedema Post Mastectomy (Primary Dx) Social History [...] often do you attend chur ch or samaritan services? More than 4 times per year 06/29/2022 Do you belong to any clubs o r organizations such as jewish groups, unions, fraternal [...] or slept in a penitentiary (including now)? No 06/29/2022 Depression Answer Date [...] 9 anastomosis forearm. Onset Date: 11/12/21 Payor: [facility] BLUE SHIELD / Plan: [facility] [employer] SEGIP / Product Type: [...] Office Visit Division of Plastic Surgery in [place], [place] [address] [place] [address] Eber Saravia M.D. [address] [place] [address] 09/15/2023 2:30 PM CDT Comprehensive Visit Department of Physical Medicine and Rehabilitation in [place], [place] [address] [place] [phone] Eebr Saravia M.D. [address] [place] [phone] Jeaneth Llamas O.T., [facility] [address] [place] [phone] documented as of this encounter Visit Diagnoses Diagnosis Lymphedema Post Mastectomy- Primary documented in this encounter Additional Health Concerns Infection Onset Date Last Indicated Resolved Time Protective Environment 09/04/2022 09/04/2022 Assessment Noted Time PHQ-9 Depression Total Score: 12 08/13/ 023 10:14 AM CDT documented as of this encounter Care Teams Secret Service Agent Relationship Specialty Start Date End Date None Reported, Pcp PCP - General Family Medicine 02/09/23 documented as of this encounter
--- OUTSIDE RECORDS SUMMARY | 2023-07-04 16:02 | XMS_ITS | Encounter Summary ---
Author Name Unknown Organization [facility] Address [address] [place] [address] Care Team Providers Care Hat Cone Inspector Name Role Phone None Reported, Pcp Primary Care Provider Unavail able Reason for Visit * Physical Therapy (Routine) - Closed Specialty Diagnoses / Procedures Referred By Cassidy t Referred To Contact Diagnoses Lymphedema Post Mastectomy Procedures PT or OT eval and treat (first available) Eber Saravia M.D. 200 [place] [address] [facility] Referral ID Status Reason Start Date Expiration Date Visits Re quested Visits Authorized [id number] Closed 07/29/2022 07/30/2023 1 1 Encounter Details Date Type Department Care Team (Latest Contact Info) Description 03/11/2023 3:30 PM CDT Comprehensive Visit Department of Physical Medicine and Rehabilitation in [place], [place] 200 [place] [phone] Eber Saravia M.D. [address] [place] [phone] Agnes Aggarwal P.T., D.P.T. [address] [place] [phone] Lymphedema Post Mastectomy Social History Tobacco Use [...] often do you attend chur ch or mandaeism services? More than 4 times per year 06/29/2022 Do you belong to any clubs o r organizations such as quaker groups, unions, fraternal or athletic groups, or [...] Date Recorded PHQ-2 Score 2 08/13/2022 [facility] Occupat ional Health - Occupational [...] LVA on 02/09/23. Onset Date: 01/28/23 Payor: [facility] / Plan: [facility] [employer] SEGIP / Product Type: HMO / SUBJECTIVE [...] Office Visit Division of Plastic Surgery in [place], [place] [address] [place] [phone] Eber Saravia M.D. [address] [place] [phone] 09/15/2023 2:30 PM CDT Comprehensive Visit Department of Physical Medicine and Rehabilitation in [place], [place] [address] [place] [phone] Eber Saravia M.D. [address] [place] [phone] Jeaneth Llamas O.T., [facility] [address] [place] [phone] documented as of this encounter Visit Diagnoses Diagnosis Lymphedema Post Mastectomy documented in this encounter Additional Health Concerns Infection Onset Date Last Indicated Resolved Time Protective Environment 09/04/2022 09/04/2022 Assessment Noted Time PHQ-9 Depression Total Score: 12 023 10:14 AM CDT documented as of this encounter Care Teams Hat Cone Inspector Relationship Specialty Start Date End Date None Reported, Pcp PCP - General Family Medicine 02/09/23 documented as of this encounter
--- OUTSIDE RECORDS SUMMARY | 2023-07-04 16:02 | XMS_ITS | Encounter Summary ---
Author Name Unknown Organization [facility] Address [address] [place] [address] Care Team Providers Care Bolt Cutter Name Role Phone None Reported, Pcp Primary Care Provider Unavail able Reason for Referral * Outpatient (Routine) - Pending Review Specialty Diagnoses / Procedures Referred By Contac t Referred To Contact Diagnoses Lymphedema Post Mastectomy Procedures Minor Misc Procedure Marlen Ruvalcaba APRN, C.N.P., D.N.P. [address] [place] [phone] [facility] Referral ID Status Reason Start Date Expiration Date V isits Requested Visits Authorized [id number] Pending Review 03/12/2023 03/11/2024 1 1 * Outpatient (Routine) - Pending Review Specialty Diagnoses / Procedures Referred By Contac t Referred To Contact Diagnoses Lymphedema Post Mastectomy Procedures Minor Misc Procedure Marlen Ruvalcaba APRN, C.N.P., D.N.P. [address] [place] [phone] [facility] Referral ID Status Reason Start Date Expiration Date V isits Requested Visits Authorized [id number] Pending Review 03/12/2023 03/11/2024 1 1 Reason for Visit * Outpatient (Routine) - Closed Specialty Diagnoses / Procedures Referred By Cassidy gutierrez Referred To Contact Plastic Surgery Diagnoses dx Eber Saravia M.D. [address] [place] [phone] [facility] Referral ID Status Reason Start Date Expiration Date Visits Re quested Visits Authorized [id number] Closed 11/11/2022 11/10/2025 1 1 Encounter Details Date Type Department Care Team (Late st Contact Info) Description 03/11/2023 1:30 PM CDT Office Visit Division of Plastic Surgery in [place], [place] [address] [place] [phone] Marlen Ruvalcaba APRN, C.NEdilma, D.N.P. [address] [place] [phone] Lymphedema Post Mastectomy (Primary Dx) Social History [...] How often do you attend chur or episcopalian services? More than 4 times [...] Answer Date Recorded PHQ-2 Score 2 08/13/2022 [facility] of Occupat ional Health - [...] Office Visit Division of Plastic Surgery in [place], [place] [address] [place] [address] Eber Saravia M.D. [address] [place] [phone] 09/15/2023 2:30 PM CDT Comprehensive Visit Department of Physical Medicine and Rehabilitation in [place], [place] [address] [place] [phone] Eber Saravia M.D. [address] [place] [phone] Jeaneth Llamas O.T., [facility] 200 [place] [phone] Scheduled Orders Name Type Priority Associated Diagnoses [...] documented as of this encounter Care Teams Bolt Cutter Relationship Specialty Start Date End Date None Reported, Pcp PCP - General Family Medicine 02/09/23 documented as of this encounter
--- OUTSIDE RECORDS SUMMARY | 2023-07-04 16:02 | XMS_ITS | Clinical Summary ---
Author Name Unknown Organization [facility] Address [address] [place] [address] Care Team Providers Care Construction Materials Tester Name Role Phone Dory Salgado MD Primary Care Provider [phone] Source Comments You are receiving this document as you are listed as the primary care provider,follow-up provider, or the patient has been referred to you for consultation.This is in compliance with the Medicare andPrem[facility] Cent[facility]aid EHR Incentive Program,which states Providers who transition their patient to another setting of careor provider of care or refers their patient to another provider of care shouldprovide summary care record for each transition of care or referral. [facility] Allergies Active Allergy Reactions Criticality [...] 0 11/11/2003 Active unknown medication Indications: PN: 11/08/2003 Active Multiple Vitamins-Minerals (MULTIVITAMIN OR) Take [...] disorder, single episode 2003 Overview: LW Onset: 55Nsd56 ; Depression Major NOS Resolved Problems Problem Noted Date Diagnosed Date Resolved Date Allergic state 11/08/2003 03/23/2005 Overview: LW Onset: 40Qmn44 ; Allergic Reaction Immunizations Name Administration Dates [...] 1969 Hep C Screening (Preventive Services) 1969 HIV Screening (Preventive Services) 1985 Adult Preventive Visit 1987 HepB (1) 1988 Cervical Cancer Screening Due 03/08/2004, 01/11/2003, 01/06/2002 DTaP/Tdap/Td (1 - Tdap) 06/12/2004 06/11/19 05, 02/14/1994 Cholesterol 2014 01/06/2002 Zoster/Shingles (1 of 2) 2019 Mammogram 03/15/2022 03/15/2021 COVID-19 Vaccine ( - 2022-2 4 season) 2023 Influenza (#1) 2023 HepA Aged Out No [...] on patient's age to complete this topic Procedures Procedure Name Priority Date/Time Associated Diagnosis Comments ANATOMICAL PATH LIQUID BASED Routine 03/07/2004 8:33 AM CDT CHOLESTEROL, TOTAL AND HDL Routine 01/06/2002 10:09 AM CDT from Last 3 Months or Most Recently Relevant to Health Maintenance Results * Pap Smear (03/07/2004 8:33 AM CDT) PAP Smear Liquid Based SEE TEXT No normal range HP CONVERSION Comment: Patient: CLIFF MUIR ? CERVICAL CYTOLOGY REPORT Pathology # ??[id number] ?Date Obtained: ? Date Received: CYTOLOGIC IMPRESSION: Negative for intraepithelial lesion or malignancy. ? ADDITIONAL DATA LMP: CLINICAL HIST ? PREV PAP NORM 01-11-03,ACC 40468 LIQUID BASED PAP CERVICAL SPECIMEN ADEQUACY: ?? Satisfactory. ENDOCERVICAL CELLS: ??Present. Verified 03/15/04 by: ??LKR ?(electronic signature) 03/07/2004 8:33 AM CDT Dory Salgado MD LAB_1 Performing Organization Address City/[facility]/ZIP Co de Phone Number HP CONVERSION * Cholesterol, Total and HDL (01/06/2002 10:09 AM CDT) Cholesterol/HDL Ratio Screen 3.9 No normal range HP CONVERSION Cholesterol 186 125 - 199 mg/dL HP CONVERSION HDL Cholesterol 48 40 - 60 mg/dL HP CONVERSION 01/06/2002 10:0 9 AM CDT Derrick Baker MD LAB_[address]forming [address] [facility] Co de Phone Number HP CONVERSION from Last 3 Months or Most Recently Relevant to Health Maintenance Care Teams Construction Materials Tester Relationship Specialty Start Date End Date Dory Salgado MD [address] [facility] [address] [place] [address] PCP - General 08/19/10
--- OUTSIDE RECORDS SUMMARY | 2023-07-04 16:02 | XMS_ITS | Encounter Summary ---
Author Name Unknown Organization [facility] Address [address] [place] [address] Care Team Providers Care Line Controller Name Role Phone None Reported, Pcp Primary [...] often do you attend chur ch or protestant services? More than 4 times per year [...] Office Visit Division of Plastic Surgery in [place], [place] 200 [place] [phone] Eber Saravia M.D. 200 [place] [phone] 09/15/2023 2:30 PM CDT Comprehensive Visit Department of Physical Medicine and Rehabilitation in [place], [place] 200 [place] [address] Eber Saravia M.D. [address] [place] [phone] Jeaneth Llamas O.T., CLT-KATHY [address] [place] [address] documented as of this encounter Procedures Procedure [...] documented as of this encounter Care Teams Line Controller Relationship Specialty Start Date End Date None Reported, Pcp PCP - General Family Medicine 02/09/23 documented as of this encounter
--- OUTSIDE RECORDS SUMMARY | 2023-07-04 16:02 | XMS_ITS ---
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 01/28/2023 Lymphedema Post Mastectomy 07/04/2022 Overview: Added automatically from request for surgery [id number] Added automatically from request for surgery [id number] Malignant Neoplasm Of Breast Upper Outer Quadrant [...] Treated Prescribed Fraction Dose Prescribed Total Dose [id number] 02/03/2022 35 25 of 25 220 cGy 5,500 cGy Reference Point Last Treated On Elapsed Days Session Dose Total Dose [id number] 02/03/2022 35 220 cGy 5,500 cGy ICRU ltbreast 01/08/2022 9 226 cGy 1,810 cGy [id number] 01/08/2022 9 200 cGy 1,600 cGy Resolved Problems Problem Noted Date Diagnosed Date Resolved Date Quadriplegia 08/16/2021 01/28/2023
--- OUTSIDE RECORDS SUMMARY | 2023-07-04 16:03 | XMS_ITS | Encounter Summary ---
Author Name Unknown Organization [facility] Address [address] [place] [address] Care Team Providers Care Mechanical Project Manager Name Role Phone None Reported, Pcp Primary Care Provider Unavail able Reason for Visit * Auth/Cert (Routine) Specialty Diagnoses / Procedures Referred By Cassidy gutierrez Referred To Contact Diagnoses Lymphedema Post Mastectomy Malignant neoplasm of upper-outer quadrant of left female breast (HCC) Lymphedema Post Mastectomy [I97.2] Procedures LA UNLISTED PROC HEMIC/LYMPHATIC LA INJ PROCEDURE LYMPHANGIOGRAPHY BYPASS LYMPHOVENOUS/BYPASS LYMPHATICOVENOUS, left arm and breast/chest, proceed as indicated Intraoperative ICG Lymphography, left arm, chest/breast area Microbubble CEUS lymphatic mapping left arm, breast/chest Referral ID Status Reason Start Date Expiration Date Visits Re quested Visits Authorized [id number] 1 1 Encounter Details Date Type Department Care Team (Latest Contact Info) Description 02/09/2023 6:29 AM CDT - 02/10/2023 10:09 AM CDT Hospital Encounter [facility], Sixth Floor [address] [place] [address] Eber Saravia M.D. 200 [place] [address] Lymphedema Post Mastectomy (Primary Dx) Discharge Disposition: [...] often do you attend chur ch or oriental orthodox services? More than 4 times per year 06/29/2022 Do you belong to any clubs o r organizations such as evangelical groups, unions, fraternal or athletic groups, or [...] Answer Date Recorded PHQ-2 Score 2 08/13/2022 [facility] [place] [facility] Occupat ional Health - Occupational Stress [...] or slept in a detention (including now)? No 06/29/2022 Depression Answer Date [...] AM CDT DISCHARGE SUMMARY BRIEF OVERVIEW Hospital: [facility] Discharge Provider: Eber Saravia M.D. Primary [...] by mouth as needed for diarrhea. 0 kdsovhwu-dcv-vguam acid-biotin (Hair,Skin and Nails,FA-biotin,) 133.3 mcg- 1,666.7 [...] Saravia's Service Name of patient: Joceline Cavazos [facility] Day: 2 Date of Admission: at [...] Please page Dr. Saravia's service pager at [phone] with any questions or concerns. * Emmanuel [...] mg by mouth as needed for diarrhea. fcietaqk-ors-wiopy acid-biotin (Hair,Skin and Nails,FA-biotin,) 133.3 mcg- 1,666.7 [...] Eliel Bean - 02/09/2023 6:45 AM CDT [facility] Spiritual Care Progress Note Patient: Joceline Uribe Age:52 y.o. Location: [facility] Reason(s) for encounter: Spiritual support as part of the interdisciplinary care team. Spiritual Assessment Jainism Identification / Spiritual Practices: Jude Branham. Spiritual Needs and/or Concerns: Mrs. Uribe requested prayer before surgery. Shared prayer. Spiritual Care interventions: Introduced the role as member of the interdisciplinary care team with the aim of establishing spiritual therapeutic rapport with patient and/or family Facilitated oriental orthodox/spiritual practices (prayer, blessing, sacred texts, oriental orthodox item) with theaim to reinforce patient's spiritual wellness and connection with source of sacredness. Spiritual Care outcomes: Patient/family was appreciative of spiritual care support. Spiritual Care Plan / Recommendations: No further spiritual care requested or required at this time. Chaplains can be contacted by paging [phone] ([place]) or [phone] (Taoist). documented in this encounter Nursing Notes * [...] left upper extremity Lymphedema Post Mastectomy A under water assistant actively participated and was necessary for [...] completed to full-thickness with electrocautery using a [place] tip. Using a microdissector, superficial fat and [...] [facility]-venous [facility] on 11/12/2021 performed [...] Office Visit Division of Plastic Surgery in [place], [place] [address] [place] [address] Eber Saravia M.D. [address] [place] [phone] 09/15/2023 2:30 PM CDT Comprehensive Visit Department of Physical Medicine and Rehabilitation in [place], [place] [address] [place] [phone] Eber Saravia M.D. [address] [place] [phone] Jeaneth Llamas O.T., CLT-KATHY [address] [place] [phone] documented as of this encounter Procedures Procedure [...] at 2000, Rx ID'd Okay to use [facility] Lot [id number] Exp 06/29/2025 Swallow whole. Do NOT crush, [...] at 2000, Rx ID'd Okay to use [facility] Lot [id number] Exp 06/29/2025 Swallow whole. Do NOT crush, chew, or split tablet. 1954 (Given - Provider: Kendra Cintron, R.N.) acetaminophen tablet 1,000 mg (TYLENOL) 1,000 mg, oral, 4 times daily, First dose on Thu02/09/23 at 2100 2033 (Given - Provider: Kendra Cintron, R.N.) 0831 (Given - Provider: Lizette Madrid RYeN.) clindamycin in D5W IVPB 900 mg (CLEOCIN) (COMPLETED) 900 mg, intravenous, at 100 mL/hr, Administer over 30 Minutes, Once, On Thu02/09/23 at 0830, For 1 dose, Intra-Op, Administer within 1 hour prior to surgical incisi, Indications: Prophylaxis, surgical 0910 (Given - Provider: Suzi Lord APRN, SUPERVISOR ROLLING ROOM)1508 (Given - Provider: Lizeth Rocha APRN, KEYLA, MNA) enoxaparin injection 40 mg (LOVENOX) 40 mg, subcutaneous, Daily, First dose on Thu02/10/23 at 0900, Drug Monitoring Program: Pharmacist to adjust medication dosing based on indication and drug clearance factors. 0831 (Given - Provid er: Lizette Madrid RJuan) fosaprepitant in NaCl 0.9% IVPB 150 mg (EMEND) (COMPLETED) 150 mg, intravenous, at 500 mL/hr, Administer over 30 Minutes, Once, On Thu02/09/23 at 0815, For 1 dose, Pre-Op, Incompatible with solutions containing divalent cations (calcium, magnesium) including lactated Ringer's solution., Restriction Criteria (Pharmacy will review and approve if criteria met): Use in the perioperative setting 1507 (Given - Provider: Lizeth Rocha APRN, SUPERVISOR ROLLING ROOM, MNA) heparin (porcine) 5,000 Units in NaCl [...] Catheter, when no infusion to maintain patency 3 (Not Given - Provider: Kendra Cintron R.N. [...] documented as of this encounter Care Teams Mechanical Project Manager Relationship Specialty Start Date End Date None Reported, Pcp PCP - General Family Medicine 02/09/23 documented as of this encounter
--- OUTSIDE RECORDS SUMMARY | 2023-07-04 16:03 | XMS_ITS | Encounter Summary ---
Author Name Unknown Organization [facility] Address [address] [place] [address] Care Team Providers Care Personal Protection Specialist Name Role Phone Unavailable Primary Care Provider Unavailabl e Reason for Visit * Outpatient (Routine) - Closed Specialty Diagnoses / Procedures Referred By Cassidy gutierrez Referred To Contact Anesthesiology Diagnoses Lymphedema Post Mastectomy Eber Saravia M.D. [address] [place] [phone] [facility] Referral ID Status Reason Start Date Expiration Date Visits Re quested Visits Authorized [id number] Closed 07/29/2022 07/30/2023 1 1 Encounter Details Date Type Department Care Team (Latest Contact Info) Description 01/28/2023 10:30 AM CDT Comprehensive Visit Preoperative Evaluation Center in [place], [place] [address] [place] [phone] Eber Saravia M.D. [address] [place] [phone] Reagan Vásquez M.D. [address] [place] [phone] Preanesthetic Medical Exam (Primary Dx); Lymphedema Post [...] often do you attend chur ch or orthodox services? More than 4 times per year 06/29/2022 Do you belong to any clubs o r organizations such as buddhist groups, unions, fraternal [...] Answer Date Recorded PHQ-2 Score 2 08/13/2022 [facility] of Occupat ional Health - Occupational [...] reasonably well following her last procedure at [place] in October 2021. She reported having some [...] PATIENT EDUCATION: Reviewed Checklist for Surgical Patients [id number] rev 0920. Written and verbal instructions given [...] Office Visit Division of Plastic Surgery in [place], [place] [address] [place] [phone] Eber Saravia M.D. [address] [place] [phone] 09/15/2023 2:30 PM CDT Comprehensive Visit Department of Physical Medicine and Rehabilitation in [place], [place] [address] [place] [phone] Eber Saravia M.D. [address] [place] [phone] Jeaneth Llamas O.T., [facility] [address] [place] [phone] documented as of this encounter Visit Diagnoses [...]
--- OUTSIDE RECORDS SUMMARY | 2023-07-04 16:03 | XMS_ITS | Encounter Summary ---
Author Name Unknown Organization [facility] Address [address] [place] [address] Care Team Providers Care Flour Tester Name Role Phone None Reported, Pcp Primary Care Provider Unavail able Reason for Referral * Outpatient (Routine) - Closed Specialty Diagnoses / Procedures Referred By Cassidy gutierrez Referred To Contact Diagnoses Lymphedema Post Mastectomy Procedures US Lymphatic Mapping with Contrast Eber Saravia M.D. [address] [place] [address] [facility] Referral ID Status Reason Start Date Expiration Date Visits Re quested Visits Authorized [id number] Closed 07/29/2022 07/30/2023 1 1 Reason for [...] Expiration Date Visits Re quested Visits Authorized [id number] 1 1 Encounter Details Date Type Department Care Team (Latest Contact Info) Description 02/09/2023 7:26 AM CDT - 02/09/2023 11:59 PM CDT Hospital Encounter Department of Radiology, [facility], in [place], [place] 200 [place] [address] Eber Saravia M.D. 200 [place] [address] Lymphedema Post Mastectomy Discharge Disposition: Home or [...] often do you attend chur ch or mormonism services? More than 4 times per year 06/29/2022 Do you belong to any clubs o r organizations such as restoration groups, unions, fraternal [...] Answer Date Recorded PHQ-2 Score 2 08/13/2022 [facility] [place] of Occupat ional Health - Occupational Stress [...] by mouth as needed for diarrhea. 0 cqfvjvez-sty-aygwj acid-biotin (Hair,Skin and Nails,FA-biotin,) 133.3 mcg- 1,666.7 [...] Office Visit Division of Plastic Surgery in [place], [place] [address] [place] [address] Eber Saravia M.D. [address] [place] [phone] 09/15/2023 2:30 PM CDT Comprehensive Visit Department of Physical Medicine and Rehabilitation in [place], [place] [address] [place] [address] Eber Saravia M.D. [address] [place] [phone] Jeaneth Llamas O.T., [facility] [address] [place] [phone] documented as of this encounter Procedures Procedure [...] IMPRESSION: Contrast-enhanced ultrasound lymphatic mapping performed. Eber Saravia M.D. IMG US PROCEDURES documented in this encounter [...] documented as of this encounter Care Teams Flour Tester Relationship Specialty Start Date End Date None Reported, Pcp PCP - General Family Medicine 02/09/23 documented as of this encounter
--- OUTSIDE RECORDS SUMMARY | 2023-07-04 16:03 | XMS_ITS | Encounter Summary ---
Author Name Unknown Organization [facility] Address [address] [place] [address] Care Team Providers Care Network Systems Integrator Name Role Phone Unavailable Primary Care Provider Unavailabl e Reason for Referral * Occupational Therapy (Routine) - Closed Specialty Diagnoses / Procedures Referred By Cassidy gutierrez Referred To Contact Diagnoses Lymphedema Post Mastectomy Procedures OT Evaluate and treat Rst Pmr Roei [address] [place] [address] [facility] Referral ID Status Reason Start Date Expiration Date Visits Re quested Visits Authorized [id number] Closed 07/29/2022 07/30/2023 1 1 Reason for Visit * Physical Therapy (Routine) - Closed Specialty Diagnoses / Procedures Referred By Cassidy gutierrez Referred To Contact Diagnoses Lymphedema Post Mastectomy Procedures PT or OT eval and treat (first available) Eber Saravia M.D. [address] [place] [phone] [facility] Referral ID Status Reason Start Date Expiration Date Visits Re quested Visits Authorized [id number] Closed 07/29/2022 07/30/2023 1 1 Encounter Details Date Type Department Care Team (Latest Contact Info) Description 01/28/2023 1:00 PM CDT Comprehensive Visit Department of Physical Medicine and Rehabilitation in [place], [place] [address] [place] [address] Eber Saravia M.D. [address] [place] [phone] Agnes Aggarwal P.T., D.P.TYe [address] [place] [address] Lymphedema Post Mastectomy Social History Tobacco Use [...] any clubs o r organizations such as islam groups, unions, fraternal [...] Answer Date Recorded PHQ-2 Score 2 08/13/2022 [facility] [place] of Occupat ional Health - Occupational Stress [...] Treatment Patient's Name: Joceline Uribe Referring Provider: bEer Saravia M.D. Rehab Diagnosis: 1. Lymphedema Post [...] in October 2021. Onset Date: 01/28/23 Payor: [employer] / Plan: BCBS [facility] ADVANTAGE SEGIP / Product Type: [...] Office Visit Division of Plastic Surgery in [place], [place] [address] [place] [address] Eber Saravia M.D. [address] [place] [phone] 09/15/2023 2:30 PM CDT Comprehensive Visit Department of Physical Medicine and Rehabilitation in [place], [place] [address] [place] [address] Eber Saravia M.D. [address] [place] [phone] Jeaneth Llamas O.T., [facility] [address] [place] [phone] documented as of this encounter Visit Diagnoses Diagnosis Lymphedema Post Mastectomy documented in this encounter Additional Health Concerns Infection Onset Date Last Indicated Resolved Time Protective Environment 09/04/2022 09/04/2022 Assessment Noted Time PHQ-9 Depression Total Score: 12 023 10:14 AM CDT documented as of this encounter
--- OUTSIDE RECORDS SUMMARY | 2023-07-04 16:03 | XMS_ITS | Encounter Summary ---
Author Name Unknown Organization [facility] Address [address] [place] [address] Care Team Providers Care Epic Willow Analyst Name Role Phone None Reported, Pcp Primary Care Provider Unavail able Reason for Visit * Outpatient (Routine) - Closed Specialty Diagnoses / Procedures Referred By Cassidy gutierrez Referred To Contact Plastic Surgery Diagnoses dx Eber Saravia M.D. [address] [place] [phone] [facility] Referral ID Status Reason Start Date Expiration Date Visits Re quested Visits Authorized [id number] Closed 11/11/2022 11/10/2025 1 1 Encounter Details Date Type Department Care Team (Latest Contact Info) Description 02/12/2023 9:30 AM CDT Office Visit Division of Plastic Surgery in [place], [place] [address] [place] [phone] Marlen Ruvalcaba APRN, C.N.P., D.N.P. [address] [place] [phone] Follow Up Examination Postoperative Visit (Primary Dx); [...] week 06/29/2022 How often do you attend [facility] or yazidism services? More than 4 times per year 06/29/2022 Do you belong to any clubs o r organizations such as yazdanism groups, unions, fraternal or athletic groups, or [...] or slept in a residential (including now)? No 06/29/2022 Depression Answer Date [...] agreement with this plan. I also recommended ctvd-ieh-sdrnbht Tylenol and ibuprofen as needed for pain [...] Notes * Addendum Note - Yolande Limon R.N. - 02/12/2023 9:30 AM CDTAddended by: YOLANDE LIMON on: 02/20/2023 11:59 AM Modules accepted: Orders documented in this encounter Plan of Treatment Upcoming Encounters Date Type Department Care Team (Latest Contact Info) Description 09/15/2023 1:00 PM CDT Office Visit Division of Plastic Surgery in [place], [place] [address] [place] [address] Eber Saravia M.D. [address] [place] [phone] 09/15/2023 2:30 PM CDT Comprehensive Visit Department of Physical Medicine and Rehabilitation in [place], [place] [address] [place] [address] Eber Saravia M.D. [address] [place] [address] Jeaneth Llamas O.T., [facility] 200 [place] [phone] documented as of this encounter Visit Diagnoses Diagnosis Follow Up Examination Postoperative Visit- Primary Lymphedema Post Mastectomy documented in this encounter Additional Health Concerns Infection Onset Date Last Indicated Resolved Time Protective Environment 09/04/2022 09/04/2022 Assessment Noted Time PHQ-9 Depression Total Score: 12 023 10:14 AM CDT documented as of this encounter Care Teams Epic Willow Analyst Relationship Specialty Start Date End Date None Reported, Pcp PCP - General Family Medicine 02/09/23 documented as of this encounter
--- OUTSIDE RECORDS SUMMARY | 2023-07-04 16:03 | XMS_ITS | Encounter Summary ---
Author Name Unknown Organization [facility] Address [address] [place] [address] Care Team Providers Care Machine Tracer Name Role Phone Unavailable Primary Care Provider [...] Answer Date Recorded PHQ-2 Score 2 08/13/2022 [facility] - Occupational Stress Questionnaire Answer [...] Office Visit Division of Plastic Surgery in [place], [place] 200 [place] [address] Eber Saravia M.D. 200 [place] [address] 09/15/2023 2:30 PM CDT Comprehensive Visit Department of Physical Medicine and Rehabilitation in [place], [place] [address] [place] [address] Eber Saravia M.D. [address] [place] [phone] Jeaneth Llamas O.T., [facility] [address] [place] [address] documented as of this encounter Procedures Procedure [...]
--- OUTSIDE RECORDS SUMMARY | 2023-07-04 16:03 | XMS_ITS | Encounter Summary ---
Author Name Unknown Organization [facility] Address [address] [place] [address] Care Team Providers Care Production Mechanic Name Role Phone Unavailable Primary Care Provider Unavailabl e Encounter Details Date Type Department Care Team (Latest Contact Info) Description 01/28/2023 9:50 AM CDT - 01/28/2023 11:59 PM CDT Hospital Encounter Department of Laboratory Medicine and Pathology, [facility], in [place], [place] [address] [place] [address] Eber Saravia M.D. [address] [place] [address] Lymphedema Post Mastectomy Discharge Disposition: Home or [...] often do you attend chur ch or uatsdin services? More than 4 times per year 06/29/2022 Do you belong to any clubs o r organizations such as mu-ism groups, unions, fraternal or athletic groups, or [...] Answer Date Recorded PHQ-2 Score 2 08/13/2022 [facility] of Occupat ional Health - Occupational [...] by mouth as needed for diarrhea. 0 qemkfasn-mez-sgkig acid-biotin (Hair,Skin and Nails,FA-biotin,) 133.3 mcg- 1,666.7 [...] Office Visit Division of Plastic Surgery in [place], [place] 200 [place] [address] Eber Saravia M.D. 200 [place] [address] 09/15/2023 2:30 PM CDT Comprehensive Visit Department of Physical Medicine and Rehabilitation in [place], [place] [address] [place] [phone] Eber Saravia M.D. [address] [place] [address] Jeaneth Llamas O.T., [facility] [address] [place] [address] documented as of this encounter Procedures Procedure Name Priority Date/Time Associated Diagnosis Comments CBC WITHOUT DIFFERENTIAL, B Routine 01/28/2023 11:43 AM CDT Lymphedema Post Mastectomy COMPREHENSIVE METABOLIC PANEL, S/P Routine 01/28/2023 11:43 AM CDT Lymphedema Post Mastectomy documented in this encounter Results * (ABNORMAL) Comprehensive Metabolic Panel (01/28/2023 11:43 AM CDT) Potassium, S 4.2 3.6 - 5.2 mmol/L [...] CDT Eber Saravia M.D. LAB BLOOD ADD-ON [address] [address], [address] [address] * (ABNORMAL) CBC without Differential (01/28/2023 11:43 [...] CDT Eber Saravia M.D. LAB BLOOD ADD-ON [address] [address], [facility] 200 [place] [address] documented in this encounter Visit Diagnoses Diagnosis Lymphedema Post Mastectomy documented in this encounter Additional Health Concerns Infection Onset Date Last Indicated Resolved Time Protective Environment 09/04/2022 09/04/2022 Assessment Noted Time PHQ-9 Depression Total Score: 12 023 10:14 AM CDT documented as of this encounter
--- OUTSIDE RECORDS SUMMARY | 2023-07-04 16:03 | XMS_ITS | Encounter Summary ---
Author Name Unknown Organization [facility] Address [address] [place] [address] Care Team Providers Care Chemical Analytical Sampler Name Role Phone None Reported, Pcp Primary Care Provider Unavail able Reason for Visit * Auth/Cert (Routine) Specialty Diagnoses / Procedures Referred By Cassidy gutierrez Referred To Contact Diagnoses Lymphedema Post Mastectomy Malignant neoplasm of upper-outer quadrant of left female breast (HCC) Lymphedema Post Mastectomy [I97.2] Procedures [place] UNLISTED PROC HEMIC/LYMPHATIC [place] INJ PROCEDURE LYMPHANGIOGRAPHY BYPASS LYMPHOVENOUS/BYPASS LYMPHATICOVENOUS, left arm and breast/chest, proceed as indicated Intraoperative ICG Lymphography, left arm, chest/breast area Microbubble CEUS lymphatic mapping left arm, breast/chest Referral ID Status Reason Start Date Expiration Date Visits Re quested Visits Authorized [id number] 1 1 Encounter Details Date Type Department Care Team (Late st Contact Info) Description 02/09/2023 8:47 AM CDT Anesthesia Event [facility] [address] [place] [address] Anabela Lou M.D., M.H.A. [address] [place] [phone] Sb Fowler M.D. [address] [place] [phone] Anesthesia Record Procedure Summary Procedure Name Responsible [...] Anes CS Handoff I, Suzi avalos APRN, CONSULTING HR PROFESSIONAL, attest that I have reconciled the controlled substances and that I have reviewed all the significant information with the next anesthesia provider assuming care of this patient. 0938 Anes CS Handoff I, Donovan Mirza APRN, CONSULTING HR PROFESSIONAL, attest that I have reconciled the controlled substances and that I have reviewed all the significant information with the next anesthesia provider assuming care of this patient. 1113 Proc Start 1305 Anes CS Handoff I, Suzi avalos APRN, CONSULTING HR PROFESSIONAL, attest that I have reconciled the controlled substances and that I have reviewed all the significant information with the next anesthesia provider assuming care of this patient. 1322 Anes CS Handoff I, Kerry taylor, CARLY, CONSULTING HR PROFESSIONAL, DNAP, attest that I have reconciled the controlled substances and that I have reviewed all the significant information with the next anesthesia provider assuming care of this patient. 1427 Anes CS Handoff I, Suzi avalos APRN, CONSULTING HR PROFESSIONAL, attest that I have reconciled the controlled [...] How often do you attend chur or zoroastrianism services? More than 4 times [...] Answer Date Recorded PHQ-2 Score 2 08/13/2022 [facility] of Occupat ional Health - [...] Procedure Summary Date: 02/09/23 Room / Location: [place] [address] / [facility] in [place], [place] Anesthesia Start: 08 Anesthesia Stop: 170 [...] ETT location: oral VL device: glide scope [place] scope blade size: 3 Tube size: 7 [...] Pre-op diagnosis: Lymphedema Post Mastectomy [I97.2]. Location: [place] [address] / [facility] in [place], [place] Providers: Eber Saravia M.D. Pertinent components [...] with patient /legal guardian or through an cold mill supervisor. The use of blood products not discussed Approval to Proceed: approved for anesthesia documented in this encounter Plan of Treatment Upcoming Encounters Date Type Department Care Team (Latest Contact Info) Description 09/15/2023 1:00 PM CDT Office Visit Division of Plastic Surgery in [place], [place] [address] [place] [phone] Eber Saravia M.D. [address] [place] [phone] 09/15/2023 2:30 PM CDT Comprehensive Visit Department of Physical Medicine and Rehabilitation in [place], [place] [address] [place] [phone] Eber Saravia M.D. [address] [place] [phone] Jeaneth Llamas O.T., [facility] [address] [place] [phone] documented as of this encounter Procedures Procedure [...] ETT location: oral VL device: glide scope [place] scope blade size: 3 Tube size: 7 [...] documented as of this encounter Care Teams Chemical Analytical Sampler Relationship Specialty Start Date End Date None Reported, Pcp PCP - General Family Medicine 02/09/23 documented as of this encounter
--- OUTSIDE RECORDS SUMMARY | 2023-07-04 16:03 | XMS_ITS | Encounter Summary ---
Author Name Unknown Organization [facility] Address [address] [place] [address] Care Team Providers Care Civil Engineer Name Role Phone Unavailable Primary Care Provider Unavailabl e Reason for Visit * Outpatient (Routine) - Closed Specialty Diagnoses / Procedures Referred By Cassidy gutierrez Referred To Contact Plastic Surgery Diagnoses dx Eber Saravia M.D. [address] [place] [phone] [facility] Referral ID Status Reason Start Date Expiration Date Visits Re quested Visits Authorized [id number] Closed 07/29/2022 07/30/2023 1 1 Encounter Details Date Type Department Care Team (Late st Contact Info) Description 01/28/2023 8:45 AM CDT Office Visit Division of Plastic Surgery in [place], [place] [address] [place] [phone] Eber Saravia M.D. [address] [place] [phone] Lymphedema Post Mastectomy (Primary Dx) Social History [...] How often do you attend chur or temple services? More than 4 times per year [...] Answer Date Recorded PHQ-2 Score 2 08/13/2022 [facility] [place] of Occupat ional Health - Occupational Stress [...] axillary lymph node dissection with Dr. Berger, [facility] axillary lymphatico-venous bypass on 11/12/2021 performed [...] Office Visit Division of Plastic Surgery in [place], [place] [address] [place] [address] Eber Saravia M.D. [address] [place] [address] 09/15/2023 2:30 PM CDT Comprehensive Visit Department of Physical Medicine and Rehabilitation in [place], [place] [address] [place] [address] Eber Saravia M.D. [address] [place] [address] Jeaneth Llamas O.T., [facility] [address] [place] [phone] documented as of this encounter Visit Diagnoses Diagnosis Lymphedema Post Mastectomy- Primary documented in this encounter Additional Health Concerns Infection Onset Date Last Indicated Resolved Time Protective Environment 09/04/2022 09/04/2022 Assessment Noted Time PHQ-9 Depression Total Score: 12 023 10:14 AM CDT documented as of this encounter
--- OUTSIDE RECORDS SUMMARY | 2023-07-04 16:03 | XMS_ITS | Encounter Summary ---
Author Name Unknown Organization [facility] Address [address] [place] [address] Care Team Providers Care Special Skills Officer Name Role Phone None Reported, Pcp Primary Care Provider Unavail able Reason for Visit * Auth/Cert (Routine) Specialty Diagnoses / Procedures Referred By Cassidy gutierrez Referred To Contact Diagnoses Lymphedema Post Mastectomy Malignant neoplasm of upper-outer quadrant of left female breast (HCC) Lymphedema Post Mastectomy [I97.2] Procedures [place] UNLISTED PROC HEMIC/LYMPHATIC [place] INJ PROCEDURE LYMPHANGIOGRAPHY BYPASS LYMPHOVENOUS/BYPASS LYMPHATICOVENOUS, left arm and breast/chest, proceed as indicated Intraoperative ICG Lymphography, left arm, chest/breast area Microbubble CEUS lymphatic mapping left arm, breast/chest Referral ID Status Reason Start Date Expiration Date Visits Re quested Visits Authorized [id number] 1 1 Encounter Details Date Type Department Care Team (Late Contact Info) Description 02/09/2023 8:10 AM CDT - 02/09/2023 3:03 PM CDT Surgery [facility] [address] [place] [address] Eber Saravia M.D. [address] [place] [address] BYPASS LYMPHOVENOUS, BYPASS LYMPHATICOVENOUS, left arm proceed [...] often do you attend chur ch or restoration services? More than 4 times per year 06/29/2022 Do you belong to any clubs o r organizations such as mormon groups, unions, fraternal or athletic groups, or [...] Answer Date Recorded PHQ-2 Score 2 08/13/2022 [facility] of Occupat ional Health - Occupational Stress [...] AM CDT DISCHARGE SUMMARY BRIEF OVERVIEW Hospital: [facility] Discharge Provider: Eber Saravia M.D. Primary Team: [...] axillary lymph node dissection with Dr. Berger [facility] axillary lymphatico-venous bypass on 11/12/2021 performed by [...] by mouth as needed for diarrhea. 0 yirosgll-bjz-uwskf acid-biotin (Hair,Skin and Nails,FA-biotin,) 133.3 mcg- 1,666.7 [...] Saravia's Service Name of patient: Joceline Cavazos [facility] Day: 2 Date of Admission: at [...] Please page Dr. Saravia's service pager at [phone] with any questions or concerns. * Emmanuel [...] mg by mouth as needed for diarrhea. rjlabrvs-rrd-msxsc acid-biotin (Hair,Skin and Nails,FA-biotin,) 133.3 mcg- 1,666.7 [...] Eliel Bean - 02/09/2023 6:45 AM CDT [facility] Spiritual Care Progress Note Patient: Joceline Uribe Age:52 y.o. Location: [facility] Reason(s) for encounter: Spiritual support as part of the interdisciplinary care team. Spiritual Assessment Congregational Identification / Spiritual Practices: Jude Branham. Spiritual Needs and/or Concerns: Mrs. Uribe requested prayer before surgery. Shared prayer. Spiritual Care interventions: Introduced the role as member of the interdisciplinary care team with the aim of establishing spiritual therapeutic rapport with patient and/or family Facilitated restoration/spiritual practices (prayer, blessing, sacred texts, restoration item) with theaim to reinforce patient's spiritual wellness and connection with source of sacredness. Spiritual Care outcomes: Patient/family was appreciative of spiritual care support. Spiritual Care Plan / Recommendations: No further spiritual care requested or required at this time. Chaplains can be contacted by paging [phone] ([place]) or [phone] ([place]). documented in this encounter Nursing Notes * [...] left upper extremity Lymphedema Post Mastectomy A certified surgical first assistant actively participated [...] completed to full-thickness with electrocautery using a [place] tip. Using a microdissector, superficial fat and [...] [facility] on 11/12/2021 performed by [...] Office Visit Division of Plastic Surgery in [place], [place] [address] [place] [phone] Eber Saravia M.D. [address] [place] [phone] 09/15/2023 2:30 PM CDT Comprehensive Visit Department of Physical Medicine and Rehabilitation in [place], [place] [address] [place] [phone] Eber Saravia M.D. [address] [place] [phone] Jeaneth Llamas O.T., [facility]ATH[facility] [address] [place] [phone] documented as of this encounter Procedures Procedure [...] at 2000, Rx ID'd Okay to use [facility] Lot [id number] Exp 06/29/2025 Swallow whole. Do NOT crush, [...] at 2000, Rx ID'd Okay to use [facility] Lot [id number] Exp 06/29/2025 Swallow whole. Do NOT crush, chew, or split tablet. 1954 (Given - Provider: Kendra Cintron RJuan) acetaminophen tablet 1,000 mg (TYLENOL) 1,000 mg, [...] prior to surgical incisi, Indications: Prophylaxis, surgical 909 (Given - Provider: Suzi Lord APRN, KEYLA)1508 [...] (Given - Provider: Lizeth Rocha APRN, KEYLA, MNSwapna) heparin (porcine) 5,000 Units in NaCl 0.9% [...] documented as of this encounter Care Teams Special Skills Officer Relationship Specialty Start Date End Date None Reported, Pcp PCP - General Family Medicine 02/09/23 documented as of this encounter
--- OUTSIDE RECORDS SUMMARY | 2023-07-04 16:04 | XMS_ITS | Encounter Summary ---
Author Name Unknown Organization [facility] Address [address] [place] [address] Care Team Providers Care Metal Buffer Name Role Phone Unavailable Primary Care Provider Unavailabl e Reason for Visit * Appointment Request (Routine) - Closed Specialty Diagnoses / Procedures Referred By Cassidy gutierrez Referred To Contact Women's Health Diagnoses ov Procedures ov [facility] Referral ID Status Reason Start Date Expiration Date Visits Re quested Visits Authorized [id number] Closed 07/30/2022 10/25/2022 1 1 Encounter Details Date Type Department Care Team (Late st Contact Info) Description 08/20/2022 9:00 AM CDT Office Visit Menopause and [facility] in [place], [place] [address] [place] [phone] Rose Ignacio, CARLY, C.N.P., D.N.P. [address] [place] [phone] Malignant Neoplasm Of Breast Upper Outer Quadrant [...] Answer Date Recorded PHQ-2 Score 2 08/13/2022 [facility] [place] of Occupat ional Health - Occupational Stress [...] could be used if she wishes. Ms. Uirbe reports that she just began using a [...] ill, and her daughter going on vacationto [place] but her being unable to join. She [...] noted in the HPI. I reviewed the [facility] intake and questionnaire. Medications, allergies, past medical [...] Office Visit Division of Plastic Surgery in [place], [place] [address] [place] [phone] Eber Saravia M.D. [address] [place] [address] 09/15/2023 2:30 PM CDT Comprehensive Visit Department of Physical Medicine and Rehabilitation in [place], [place] [address] [place] [phone] Eber Saravia M.D. [address] [place] [phone] Jeaneth Llamas O.T., [facility] [address] [place] [phone] documented as of this encounter Visit Diagnoses Diagnosis Malignant Neoplasm Of Breast Upper Outer Quadrant Female Left (HCC)- Primary Atrophy Vagina Due To Estrogen Deficiency Depressed Mood documented in this encounter Additional Health Concerns Assessment Noted Time PHQ-9 Depression Total Score: 12 023 10:14 AM CDT documented as of this encounter
--- OUTSIDE RECORDS SUMMARY | 2023-07-04 16:04 | XMS_ITS | Encounter Summary ---
Author Name Unknown Organization [facility] Address [address] [place] [address] Care Team Providers Care Ribbon Sweatband Operator Name Role Phone Unavailable Primary Care Provider Unavailabl e Encounter Details Date Type Department Care Team (Late st Contact Info) Description 07/29/2022 10:30 AM CDT Education Menopause and Women's Sexual [facility] Clinic in [place], [place] [address] [place] [phone] Rose Ignacio, CARLY, C.N.P., D.N.P. [address] [place] [phone] Jeaneth Pantoja RYeNYe [address] [place] [phone] Symptoms Vasomotor Social History Tobacco Use Types [...] often do you attend chur ch or baptist services? More than 4 times per year 06/29/2022 Do you belong to any clubs o r organizations such as sabianist groups, unions, fraternal [...] and heating? Not hard at all 06/29/2022 [facility] of Occupat ionct Health - Occupational Stress Questionnaire Answer Date [...] initial patient education Referring provider: Ms. Rose Ignacio, CHILDCARE WORKER, NURSE GYNECOLOGY, DNP ASSESSMENT/PLAN Patient education provided to: patient [...] Office Visit Division of Plastic Surgery in [place], [place] [address] [place] [phone] bEer Saravia M.D. [address] [place] [phone] 09/15/2023 2:30 PM CDT Comprehensive Visit Department of Physical Medicine and Rehabilitation in [place], [place] [address] [place] [phone] Eber Saravia M.D. [address] [place] [phone] Jeaneth Llamas O.T., [facility] [address] [place] [phone] documented as of this encounter Visit Diagnoses Diagnosis Symptoms Vasomotor documented in this encounter Additional Health Concerns Assessment Noted Time PHQ-9 Depression Total Score: 5 07/30/19 23 8:44 AM CDT documented as of this encounter
--- OUTSIDE RECORDS SUMMARY | 2023-07-04 16:04 | XMS_ITS | Encounter Summary ---
Author Name Unknown Organization [facility] Address [address] [place] [address] Care Team Providers Care Electrical Accessories I Assembler Name Role Phone Unavailable Primary Care Provider Unavailabl e Reason for Visit * Reason Onset Date Comments Pre-visit Intake 01/22/2023 Encounter Details Date Type Department Care Team (Latest Contact Info) Description 01/22/2023 10:30 AM CDT Clinical Communication Virtual Review in [place], [place] 200 [place], [place] [phone] Pre-visit Intake Social History Tobacco Use Types [...] often do you attend chur ch or spiritism services? More than 4 times per year [...] Answer Date Recorded PHQ-2 Score 2 08/13/2022 [facility] of Occupat ional Health - Occupational Stress [...] Office Visit Division of Plastic Surgery in [place], [place] 200 [place] [address] Eber Saravia M.D. 200 [place] [phone] 09/15/2023 2:30 PM CDT Comprehensive Visit Department of Physical Medicine and Rehabilitation in [place], [place] [address] [place] [phone] Eber Saravia M.D. [address] [place] [phone] Jeaneth Llamas O.T., [facility] [address] [place] [phone] documented as of this encounter Visit Diagnoses Not on filedocumented in this encounter Additional Health Concerns Infection Onset Date Last Indicated Resolved Time Protective Environment 09/04/2022 09/04/2022 Assessment Noted Time PHQ-9 Depression Total Score: 12 023 10:14 AM CDT documented as of this encounter
--- OUTSIDE RECORDS SUMMARY | 2023-07-04 16:04 | XMS_ITS | Encounter Summary ---
Author Name Unknown Organization [facility] Address [address] [place] [address] Care Team Providers Care Lead Pressman Name Role Phone Unavailable Primary Care Provider Unavailabl e Reason for Visit * Outpatient (Routine) - Closed Specialty Diagnoses / Procedures Referred By Cassidy gutierrez Referred To Contact Diagnoses Lymphedema Post Mastectomy Procedures Minor Misc Procedure Eber Saravia M.D. [address] [place] [address] [facility] Referral ID Status Reason Start Date Expiration Date Visits Re quested Visits Authorized [id number] Closed 02/26/2022 02/26/2023 1 1 Encounter Details Date Type Department Care Team (Latest Contact Info) Description 07/04/2022 8:30 AM HEALTH CARE MANAGER Procedure visit Division of Plastic Surgery in [place], [place] [address] [place] [phone] Eber Saravia M.D. [address] [place] [phone] Dissection Axillary Node Status Post (Primary Dx); [...] How often do you attend chur or religion services? More than 4 times [...] and heating? Not hard at all 06/29/2022 [facility] [place] of Occupat ional Health - Occupational Stress [...] in a prison (including now)? No 06/29/2022 Nutrition Answer Date [...] PROCEDURE DATE: 07/04/2022 Surgeon: Eber Saravia MD VAMP MARKER: The physician mobile sales assistant was present and assisted throughout the [...] the procedure with assistance. Eber Saravia MD TH CARE MANAGER documented in this encounter Plan of Treatment Upcoming Encounters Date Type Department Care Team (Latest Contact Info) Description 09/15/2023 1:00 PM CDT Office Visit Division of Plastic Surgery in [place], [place] [address] [place] [address] Eber Saravia M.D. [address] [place] [phone] 09/15/2023 2:30 PM CDT Comprehensive Visit Department of Physical Medicine and Rehabilitation in [place], [place] [address] [place] [phone] Eber Saravia M.D. [address] [place] [phone] Jeaneth Llamas O.T., [facility] [address] [place] [phone] documented as of this encounter Visit Diagnoses [...] be administered subq Given 07/04/2022 9:16 AM HEALTH CARE MANAGER 0.5 mg Other documented in this encounter
--- OUTSIDE RECORDS SUMMARY | 2023-07-04 16:04 | XMS_ITS | Encounter Summary ---
Author Name Unknown Organization [facility] Address [address] [place] [address] Care Team Providers Care Union Steward Name Role Phone Unavailable Primary Care Provider Unavailabl e Reason for Visit * Physical Therapy (Routine) - Closed Specialty Diagnoses / Procedures Referred By Cassidy t Referred To Contact Diagnoses Lymphedema Post Mastectomy Procedures PT or OT eval and treat (first available) Eber Saravia M.D. 200 [place] [address] [facility] Referral ID Status Reason Start Date Expiration Date Visits Re quested Visits Authorized [id number] Closed 02/26/2022 02/26/2023 1 1 Encounter Details Date Type Department Care Team (Latest Contact Info) Description 07/04/2022 10:30 AM ASSISTANT CHILD CARE TEACHER Comprehensive Visit Department of Physical Medicine and Rehabilitation in [place], [place] [address] [place] [phone] Eber Saravia M.D. [address] [place] [phone] Alisha Nogueira M.S., O.T., [facility] [address] [place] [phone] Lymphedema Post Mastectomy Social History Tobacco Use [...] often do you attend chur ch or latter-day services? More than 4 times per year 06/29/2022 Do you belong to any clubs o r organizations such as sabianism groups, unions, fraternal [...] and heating? Not hard at all 06/29/2022 [facility] [place] of Occupat ional Health - Occupational Stress [...] slept in a care home (including now)? No 06/29/2022 Nutrition Answer Date [...] radiation on 02/03/2022. Onset Date: 11/12/21 Payor: [facility] BLUE SHIELD / Plan: [facility] [employer]IP / Product Type: HMO [...] bras that she previously purchased at the [employer] store that provides good separation and [...] (min): 56 min Alisha Nogueira M.S., O.T., ALICE STANT CHILD CARE TEACHER documented in this encounter Plan of Treatment Upcoming Encounters Date Type Department Care Team (Latest Contact Info) Description 09/15/2023 1:00 PM CDT Office Visit Division of Plastic Surgery in [place], [place] [address] [place] [address] Eber Saravia M.D. [address] [place] [phone] 09/15/2023 2:30 PM CDT Comprehensive Visit Department of Physical Medicine and Rehabilitation in [place], [place] [address] [place] [address] Eber Saravia M.D. [address] [place] [address] Jeaneth Llamas O.T., [facility] 200 [place] [phone] documented as of this encounter Visit Diagnoses Diagnosis Lymphedema Post Mastectomy documented in this encounter
--- OUTSIDE RECORDS SUMMARY | 2023-07-04 16:04 | XMS_ITS | Encounter Summary ---
Author Name Unknown Organization [facility] Address [address] [place] [address] Care Team Providers Care Product Ambassador Name Role Phone Unavailable Primary Care Provider Unavailabl e Reason for Referral * Outpatient (Routine) - Closed Specialty Diagnoses / Procedures Referred By Contac t Referred To Contact Women's Health Diagnoses Depressed [facility] Rose Ignacio APRN, C.N.PYe, D.N.P. [address] [place] [phone] [facility] Referral ID Status Reason Start Date Expiration Date Visits Re quested Visits Authorized [id number] Closed 07/29/2022 07/29/2023 1 1 * Specialty Diagnoses / Procedures Referred By Contac t Referred To Contact Rose Ignacio APRN, C.N.Mina, D.N.P. [address] [place] [phone] [facility] Referral ID Status Reason Start Date Expiration Date Visits Re quested Visits Authorized Reason for Visit * Outpatient (Routine) - Closed Specialty Diagnoses / Procedures Referred By Contjarad t Referred To Contact Women's Health Diagnoses Depressed Libido Malignant Neoplasm Of Breast Upper Outer Quadrant Female Left (HCC) Sophia Jimenez P.A.-C., P.A. [address] [place] [address] [facility] Referral ID Status Reason Start Date Expiration Date Visits Re quested Visits Authorized [id number] Closed 06/16/2022 06/16/2023 1 1 Encounter Details Date Type Department Care Team (Latest Contact Info) Description 07/29/2022 9:30 AM CDT Comprehensive Visit Menopause and Women's Sexual Health Clinic in [place], [place] [address] [place] [phone] Rose Ignacio APRN, C.N.P., D.N.P. [address] [place] [phone] Symptoms Vasomotor (Primary Dx); Menopause; Malignant Neoplasm [...] often do you attend chur ch or temple services? More than 4 times per year 06/29/2022 Do you belong to any clubs o r organizations such as yazidi groups, unions, fraternal or athletic groups, or [...] and heating? Not hard at all 06/29/2022 [facility] of Occupat ional Health - Occupational Stress [...] slept in a skilled nursing (including now)? No 06/29/2022 Depression Answer Date [...] noted in the HPI. I reviewed the [facility] intake and questionnaire. Medications, allergies, [...] Office Visit Division of Plastic Surgery in [place], [place] [address] [place] [address] Eber Saravia M.D. [address] [place] [phone] 09/15/2023 2:30 PM CDT Comprehensive Visit Department of Physical Medicine and Rehabilitation in [place], [place] [address] [place] [phone] Eber Saravia M.D. [address] [place] [phone] Jeaneth Llamas O.T., [facility] [address] [place] [phone] Scheduled Referrals Name Type Priority Associated Diagnoses [...]
--- OUTSIDE RECORDS SUMMARY | 2023-07-04 16:04 | XMS_ITS | Encounter Summary ---
Author Name Unknown Organization [facility] Address [address] [place] [address] Care Team Providers Care Magnetic Testing Technician Name Role Phone Unavailable Primary Care Provider Unavailabl e Encounter Details Date Type Department Care Team (Latest Contact Info) Description 12/17/2022 Clinical Communication Department of Physical Medicine and Rehabilitation in [place], [place] [address] [place] [address] Jeaneth Llamas, O.T., [facility] [address] [place] [address] Social History Tobacco Use Types Packs/Day Years [...] Answer Date Recorded PHQ-2 Score 2 08/13/2022 [facility] of Occupat ional Health - Occupational [...] best number to reach her at is [phone]. Thanks! documented in this encounter Plan of Treatment Upcoming Encounters Date Type Department Care Team (Latest Contact Info) Description 09/15/2023 1:00 PM CDT Office Visit Division of Plastic Surgery in [place], [place] [address] [place] [phone] Eber Saravia M.D. [address] [place] [phone] 09/15/2023 2:30 PM CDT Comprehensive Visit Department of Physical Medicine and Rehabilitation in [place], [place] [address] [place] [phone] Eber Saravia M.D. [address] [place] [phone] Jeaneth Llamas O.T., [facility] [address] [place] [phone] documented as of this encounter Visit Diagnoses Not on filedocumented in this encounter Additional Health Concerns Infection Onset Date Last Indicated Resolved Time Protective Environment 09/04/2022 09/04/2022 Assessment Noted Time PHQ-9 Depression Total Score: 12 08/13/ 023 10:14 AM CDT documented as of this encounter
--- OUTSIDE RECORDS SUMMARY | 2023-07-04 16:04 | XMS_ITS | Encounter Summary ---
Author Name Unknown Organization [facility] Address [address] [place] [address] Care Team Providers Care Orthotist/Prosthetist Name Role Phone Unavailable Primary Care Provider Unavailabl e Reason for Visit * Reason Onset Date Comments Pre-visit Intake 07/28/2022 Encounter Details Date Type Department Care Team (Latest Contact Info) Description 07/28/2022 9:30 AM CDT Clinical Communication Virtual Review in [place], [place] 200 [place], [place] [phone] Pre-visit Intake Social History Tobacco Use Types [...] often do you attend chur ch or lutheran services? More than 4 times per year 06/29/2022 Do you belong to any clubs o r organizations such as mosque groups, unions, fraternal [...] and heating? Not hard at all 06/29/2022 [facility] [place] of Occupat ional Health - Occupational Stress [...] a care home (including now)? No 06/29/2022 Depression Answer [...] Office Visit Division of Plastic Surgery in [place], [place] 200 [place] [address] Eber Saravia M.D. 200 [place] [phone] 09/15/2023 2:30 PM CDT Comprehensive Visit Department of Physical Medicine and Rehabilitation in [place], [place] [address] [place] [phone] Eber Saravia M.D. [address] [place] [phone] Jeaneth Llamas O.T., [facility] [address] [place] [phone] documented as of this encounter Visit Diagnoses Not on filedocumented in this encounter
--- OUTSIDE RECORDS SUMMARY | 2023-07-04 16:04 | XMS_ITS | Encounter Summary ---
Author Name Unknown Organization [facility] Address [address] [place] [address] Care Team Providers Care Wood Barrel Reconditioner Name Role Phone Unavailable Primary Care Provider Unavailabl e Reason for Visit * Reason Onset Date Comments opinion on mutual patient 06/26/2022 Encounter Details Date Type Department Care Team (Latest Contact Info) Description 06/26/2022 Clinical Communication Department of Physical Medicine and Rehabilitation in [place], [place] [address] [place] [address] Jeaneth Llamas O.T., [facility] [address] [place] [phone] opinion on mutual patient Social History Tobacco [...] How often do you attend chur or muslim services? More than 4 times per year [...] and heating? Not hard at all 06/29/2022 [facility] of Occupat ional Health - Occupational [...] a senior living (including now)? No 06/29/2022 Nutrition Answer Date [...] Farhad CALLER'S NAME: Nancy Lutz OT at [facility] WHAT IS THE CALL REGARDING? Reason for the Call: Would like to discuss mutual patient with you regarding your opinion on lymphedema pump and breast swelling. Details/Desired Outcome: Requests call back. Authorization on File: Yes, [place] Auth Next Follow Up: Suggested Next Steps Listed in Clinical Note: scheduled on 07/04/22 Response preference (online or phone call): Phone Additional Comments: NA PATIENT OR CALLER'S PHONE NUMBER: [phone] CUTTER documented in this encounter Plan of Treatment Upcoming Encounters Date Type Department Care Team (Latest Contact Info) Description 09/15/2023 1:00 PM CDT Office Visit Division of Plastic Surgery in [place], [place] [address] [place] [address] Eber Saravia M.D. [address] [place] [phone] 09/15/2023 2:30 PM CDT Comprehensive Visit Department of Physical Medicine and Rehabilitation in [place], [place] [address] [place] [phone] Eber Saravia M.D. [address] [place] [phone] Jeaneth Llamas O.T., [facility] [address] [place] [phone] documented as of this encounter Visit Diagnoses Not on filedocumented in this encounter
--- OUTSIDE RECORDS SUMMARY | 2023-07-04 16:04 | XMS_ITS | Encounter Summary ---
Author Name Unknown Organization [facility] Address [address] [place] [address] Care Team Providers Care X Ray Developer Name Role Phone Unavailable Primary Care Provider Unavailabl e Reason for Visit * Outpatient (Routine) - Closed Specialty Diagnoses / Procedures Referred By Cassidy gutierrez Referred To Contact Diagnoses Lymphedema Post Mastectomy Procedures Minor Misc Procedure Eber Saravia M.D. [address] [place] [address] [facility] Referral ID Status Reason Start Date Expiration Date Visits Re quested Visits Authorized [id number] Closed 02/26/2022 02/26/2023 1 1 Encounter Details Date Type Department Care Team (Latest Contact Info) Description 07/04/2022 2:30 PM PERFUME MAKER Procedure visit Division of Plastic Surgery in [place], [place] [address] [place] [phone] Eber Saravia M.D. [address] [place] [phone] Dissection Axillary Node Status Post (Primary Dx); [...] any clubs o r organizations such as jainism groups, unions, fraternal [...] and heating? Not hard at all 06/29/2022 [facility] [place] of Occupat ional Health - Occupational Stress [...] or slept in a chcf (including now)? No 06/29/2022 Nutrition Answer Date [...] for this procedure and she expressed understanding. UME MAKER * Eber Saravia M.D. - 07/04/2022 2:30 [...] lymphovenous bypass was recommended. Eber Saravia MD UME MAKER documented in this encounter Procedure Notes * Eber Saravia M.D. - 07/04/2022 2:30 PM CST OPERATIVE REPORT INDOCYANINE GREEN LYMPHOGRAPHY - DELAYED SCAN NAME: Joceline Uribe AGE: 52 y.o. SURGERY/ PROCEDURE DATE: 07/04/2022 SURGEON(S)/SKI PATROLLER(S): Eber Saravia MD OPERATION: Indocyanine green lymphography [...] the procedure with assistance. Eber Saravia MD UME MAKER documented in this encounter Plan of Treatment Upcoming Encounters Date Type Department Care Team (Latest Contact Info) Description 09/15/2023 1:00 PM CDT Office Visit Division of Plastic Surgery in [place], [place] [address] [place] [address] Eber Saravia M.D. [address] [place] [address] 09/15/2023 2:30 PM CDT Comprehensive Visit Department of Physical Medicine and Rehabilitation in [place], [place] [address] [place] [address] Eber Saravia M.D. [address] [place] [phone] Jeaneth Llamas O.T., [facility] [address] [place] [phone] documented as of this encounter Visit Diagnoses Diagnosis Dissection Axillary Node Status Post- Primary Lymphedema Post Mastectomy documented in this encounter
--- OUTSIDE RECORDS SUMMARY | 2023-07-04 16:04 | XMS_ITS | Encounter Summary ---
Author Name Unknown Organization [facility] Address [address] [place] [address] Care Team Providers Care Radial Drill Press Operator Name Role Phone Unavailable Primary Care Provider Unavailabl e Reason for Visit * Occupational Therapy (Routine) - Canceled Specialty Diagnoses / Procedures Referred By Cassidy gutierrez Referred To Contact Diagnoses Lymphedema Post Mastectomy Procedures OT Ongoing Treatment Eber Saravia M.D. 200 [place] [address] [facility] Referral ID Status Reason Start Date Expiration Date V isits Requested Visits Authorized [id number] Canceled 07/04/2022 10/25/2022 4 4 Encounter Details Date Type Department Care Team (Latest Contact Info) Description 07/29/2022 8:00 AM CDT Clinical Support Department of Physical Medicine and Rehabilitation in [place], [place] [address] [place] [phone] Eber Saravia M.D. [address] [place] [phone] Jeaneth Llamas O.T., [facility] [address] [place] [phone] Lymphedema Post Mastectomy Social History Tobacco Use [...] often do you attend chur ch or rastafari services? More than 4 times per year 06/29/2022 Do you belong to any clubs o r organizations such as denominational groups, unions, fraternal [...] and heating? Not hard at all 06/29/2022 [facility] of Occupat ional Health - Occupational Stress [...] as of this encounter Progress Notes * Jeanteh Llamas O.T., CLT-KATHY - 07/29/2022 8:00 AM CDT [...] radiation on 02/03/2022. Onset Date: 11/12/21 Payor: [employer] BLUE SHIELD / Plan: [facility] [employer] ADVANTAGE SEGIP / Product Type: HMO / [...] compression. She plans on going to the [place] after this appointment to obtain a compression [...] Office Visit Division of Plastic Surgery in [place], [place] [address] [place] [address] Eber Saravia M.D. [address] [place] [phone] 09/15/2023 2:30 PM CDT Comprehensive Visit Department of Physical Medicine and Rehabilitation in [place], [place] [address] [place] [phone] Eber Saravia M.D. [address] [place] [phone] Jeaneth Llamas O.T., [facility]NA [address] [place] [phone] documented as of this encounter Visit Diagnoses Diagnosis Lymphedema Post Mastectomy documented in this encounter Additional Health Concerns Assessment Noted Time PHQ-9 Depression Total Score: 5 07/30/19 23 8:44 AM CDT documented as of this encounter
--- OUTSIDE RECORDS SUMMARY | 2023-07-04 16:04 | XMS_ITS | Encounter Summary ---
Author Name Unknown Organization [facility] Address [address] [place] [address] Care Team Providers Care Security Assurance Analyst Name Role Phone Unavailable Primary Care Provider Unavailabl e Reason for Referral * Outpatient (Routine) - Closed Specialty Diagnoses / Procedures Referred By Cassidy gutierrez Referred To Contact Diagnoses Preanesthetic Medical Exam Procedures ECG 12 Lead Kerry Pearce APRN C.N.P., M.S.N. 200 [place] [phone] [facility] Referral ID Status Reason Start Date Expiration Date Visits Re quested Visits Authorized [id number] Closed 07/29/2022 07/30/2023 1 1 Encounter Details Date Type Department Care Team (Late st Contact Info) Description 11/11/2022 Orders Only Preoperative Evaluation Center in [place], [place] [address] [place] [phone] Kerry Pearce APRN, C.N.P., M.S.N. Preanesthetic Medical [...] How often do you attend chur or yarsanism services? More than 4 times per year 06/29/2022 Do you belong to any clubs o r organizations such as mandaen groups, unions, fraternal [...] Answer Date Recorded PHQ-2 Score 2 08/13/2022 [facility] of Occupat ional Health - Occupational Stress [...] Office Visit Division of Plastic Surgery in [place], [place] [address] [place] [address] Eber Saravia M.D. [address] [place] [phone] 09/15/2023 2:30 PM CDT Comprehensive Visit Department of Physical Medicine and Rehabilitation in [place], [place] [address] [place] [phone] Eber Saravia M.D. [address] [place] [phone] Jeaneth Llamas O.T., [facility] [address] [place] [phone] documented as of this encounter Results * ECG 12 Lead (01/28/2023 10:04 AM CDT) Ventricular Rate ECG/Min 70 BPM MUSE NE Interval 164 ms MUSE QRSD Interval 84 ms MUSE QT Interval 386 ms MUSE QTC Interval 416 ms MUSE P [place] 43 degrees MUSE R [place] 24 degrees MUSE T Wave [place] 37 degrees MUSE 01/28/2023 10:0 4 AM [...]
== END 2023-07-04 16:07 | disposition home or self-care (01) ==
LOC: ED 15:59
PROVIDERS: Emergency Provider Emergency Medicine Emergency Medical Services; PCP Physician Assistant
DX: L03.313 Cellulitis of chest wall (principal); W55.03XA Scratched by cat, initial encounter
CPT/HCPCS: 99283; 99284

== ENCOUNTER 2023-08-13 16:01 | Outpatient (CLI) | payer BC, SELFPAY ==
--- OUTSIDE RECORDS SUMMARY | 2023-08-21 11:53 | XMS_ITS | Clinical Summary ---
Author Name Unknown Organization [facility] Address [address] [place] [address] Care Team Providers Care Refinish Technician Name Role Phone None Reported, Pcp Primary Care Provider Unavail able Source Comments Patient records contain information from all sites at [facility]. For routine questions regarding patient records, call [phone] during business hours, M-F 8:00 AM - 5:00 PM Central Time. Record requests for emergency care only can be directed to [phone] at any time.[facility] Allergies Active Allergy Reactions Criticality Noted [...] with 1 twice daily 0 06/11/2022 Active kfhzmkck-rfe-mebqc acid-biotin (Hair,Skin and Nails,FA-biotin,) 133.3 mcg- 1,666.7 [...] Overview: Added automatically from request for surgery [id number] Added automatically from request for surgery [id number] Malignant Neoplasm Of Breast Upper Outer Quadrant Female Left 10/23/2021 Cancer Staging:Pathologic stage from 04/25/2021:Stage IIB(pT2, pN2a, cM0, G3, ER+, ID+, HER2-) - Unsigned Other Cervical Disc Displace ment Unspecified Cervical Region 12/10/2016 Hypothyroidism 08/05/2010 Meniere's Disease Right 08/05/2010 Resolved Problems Problem Noted Date Diagnosed Date Resolved Date Quadriplegia 08/16/2021 01/28/2023 Encounters Date Type Department Care Team Description 07/02/2023 Orders Only Division of Gastroenterology in [place], [place] [address] [place] [address] Carlos Serrano M.D. Genetic Susceptibility To Disease from Last 3 Months Immunizations Name Administration [...] How often do you attend chur or moravian services? More than 4 times per year 06/29/2022 Do you belong to any clubs o r organizations such as samaritan groups, unions, fraternal [...] Answer Date Recorded PHQ-2 Score 2 08/13/2022 [facility] of Occupat ional Health - Occupational Stress [...] Office Visit Division of Plastic Surgery in [place], [place] [address] [place] [address] Eber Saravia M.D. 200 [place] [phone] 09/15/2023 2:30 PM CDT Comprehensive Visit Department of Physical Medicine and Rehabilitation in [place], [place] [address] [place] [phone] Eber Saravia M.D. [address] [place] [phone] Jeaneth Llamas O.T., [facility] [address] [place] [phone] Health Maintenance Due Date Last Done Comments CT Colonography 1970 Cologuard 1970 FIT 1970 Hepatitis C Screening 1970 Pneumococcal vaccine (0-64 years) (1 of 2 - PCV) 1975 Hepatitis B Vaccines (1 of 3 - 19+ 3-dose series) 1988 Mammogram 11/07/2022 11/07/2021, 01/2021, 04/25/2021, Additional history exists COVID-19 Vaccine (2022- [...] (Cholesterol) Screening 06/10/2027 06/10/2022, 01/22/2021 Colonoscopy 05/20/2029 05/20/2019, 07/2019 (Performed elsewhere) Colorectal Cancer Screening 05/20/2029 Zoster Vaccines Completed 05/07/2021, 03/07/2021 Influenza Vaccine Completed 03/14/2023, , 05/05/2022, Additional history exists HPV Vaccines Aged Out No longer eligi ble based on patient's age to complete this topic Medical Devices Implanted Type Area Senior Enterprise Architect Device Identifier Shelf Expiration Date Model / Serial / Lot Hardware E.G. Pins/Screws/R ods Hardware e.g. pins/screws/ rods Mouth Description:Dental implants Clp Hrzn Ti 6 Clp Sm Red - [id number] Implanted:Qty : 1 on 11/12/2021 by Jennifer Berger D.O. at [facility] Hardware e.g. pins/screws/ rods [employer] [id number] 06/17/2026 7 Clp Hrzn Ti 6 Clp Sm Red - [id number] Implanted:Qty : 1 on 11/12/2021 by Jennifer Berger D.O. at [facility] Hardware e.g. pins/screws/ rods [employer] [id number] 06/17/20262 7 Clp Hrzn Ti 6 Clp Sm Red - [id number] Implanted:Qty : 1 on 11/12/2021 by Jennifer Berger D.O. at [facility] Hardware e.g. pins/screws/ rods [employer] [id number] 07/08/202620072 2 Clp Hrzn Ti 6 Clp Sm Red - [id number] Implanted:Qty : 1 on 11/12/2021 by Jennifer Berger D.O. at [facility] Hardware e.g. pins/screws/ rods [employer] [id number] 06/03/2026A220061 5 Clp Hrzn Ti 6 Clp Sm Red - [id number] Implanted:Qty : 1 on 11/12/2021 by Jennifer Berger D.O. at [facility] Hardware e.g. pins/screws/ rods [employer] [id number] 06/03/2026A220061 5 Clp [place]ark Ti Spr Mcr 1.5 - [id number] Implanted:Qty : 1 on 11/12/2021 by Eber Saravia M.D. at [facility] Hardware e.g. pins/screws/ rods [employer] [id number] 06/17/2025 [id number] / / [id number] Clp [place]ark Ti Mcr - [id number] Implanted:Qty : 1 on 11/12/2021 by Eber Saravia M.D. at [facility] Hardware e.g. pins/screws/ rods [employer] [id number] 08/15/2025 [id number] / / [id number] Clp Ozark Ti Mcr - [id number] Implanted:Qty : 1 on 11/12/2021 by Eber Saravia M.D. at [facility] Hardware e.g. pins/screws/ rods [employer] [id number] 11/14/2025 [id number] / / [id number] Clp Ozark Ti Spr Mcr 1.5 - [id number] Implanted:Qty : 1 on 11/12/2021 by Eber Saravia M.D. at [facility] Hardware e.g. pins/screws/ rods [employer] [id number] 06/17/2025 [id number] / / [id number] Clp Hrzn Ti 6 Clp Sm Red - [id number] Implanted:Qty : 1 on 11/12/2021 by Jennifer Berger D.O. at [facility] Hardware e.g. pins/screws/ rods [employer] [id number] 06/17/2026 [id number] / / [id number] Clp Hrzn Ti 6 Clp Sm Red - [id number] Implanted:Qty : 1 on 11/12/2021 by Jennifer Berger D.O. at [facility] Hardware e.g. pins/screws/ rods [employer] [id number] 06/03/2026868820 / / [id number] Clp Hrzn Ti 24 Clp Md Alec - [id number] Implanted:Qty : 1 on 11/12/2021 by Jennifer Berger D.O. at [facility] Hardware e.g. pins/screws/ rods [employer] [id number] 06/25/2026 [id number] / / [id number] Clp Hrzn Ti 6 Clp Sm Red - [id number] Implanted:Qty : 1 on 11/12/2021 by Jennifer Berger D.Kari. at [facility] Hardware e.g. pins/screws/ rods [employer] [id number] 06/03/2026544503 / / [id number] Clp Ozark Ti Spr Mcr 1.5 - [id number] Implanted:Qty : 1 on 02/09/2023 by Eber Saravia M.D. at [facility] Hardware e.g. pins/screws/ rods [employer] [id number] 11/14/2026 [id number] / / [id number] Clp Ozark Ti Mcr - [id number] Implanted:Qty : 1 on 02/09/2023 by Eber Saravia M.D. at [facility] Hardware e.g. pins/screws/ rods [employer] [id number] / / Clp Ozark Ti Mcr - [id number] Implanted:Qty : 1 on 02/09/2023 by Eber Saravia M.D. at [facility] Hardware e.g. pins/screws/ rods [employer] [id number] / / Clp Ozark Ti Mcr - [id number] Implanted:Qty : 1 on 02/09/2023 by Eber Saravia M.D. at [facility] Hardware e.g. pins/screws/ rods [employer] [id number] / / Clp Ozark Ti Spr Mcr 1.5 - [id number] Implanted:Qty : 1 on 02/09/2023 by Eber Saravia M.D. at [facility] Hardware e.g. pins/screws/ rods [employer] [id number] / / Clp Ozark Ti Spr Mcr 1.5 - [id number] Implanted:Qty : 1 on 02/09/2023 by Eber Saravia M.D. at [facility] Hardware e.g. pins/screws/ rods [employer] [id number] / / Clp Ozark Ti Spr Mcr 1.5 - [id number] Implanted:Qty : 1 on 02/09/2023 by Eber Saravia M.D. at [facility] Hardware e.g. pins/screws/ rods [employer] [id number] / / Imaging Marker Imaging Marker Breast Additional Health Concerns Infection Onset Date Last Indicated Protective Environment 09/04/2022 3 Advance Directives For more information, please contact: [phone] * Full Code (Latest Code Status on File) Date Activated Date Inactivated Comments 11/12/2021 7:28 AM 11/12/2021 9:42 PM Question Answer Comments Full Code: Not Discussed Due to: Not medically appropriate Care Teams Refinish Technician Relationship Specialty Start Date End Date None Reported, Pcp PCP - General Family Medicine 02/09/23
--- OUTSIDE RECORDS SUMMARY | 2023-08-21 11:53 | XMS_ITS | Continuity of Care Document ---
Author Name Unknown Organization [facility] Address [address] [place] [address] Phone Care Team Providers Care Payroll Services Analyst Name Role Phone Gabrielle Rodriguez MD Unavailable [...] Effective Dates (start - stop) Status Comments VITAMIN D3 (unknown strength) Not Available - Active ZOLEDRONIC ACID (unknown strength) Not Available - Active PROBIOTIC (unknown strength) Not Available - Active HAIR, SKIN AND NAILS (unknown strength) Not Available - Active CRANBERRY (unknown strength) Not Available - Active TAMOXIFEN CITRATE (unknown strength) Not Available - Active VERZENIO (unknown strength) Not Available - Active SYNTHROID (unknown strength) Not Available - Active Procedures Procedure Date OFFICE/OUTPATIENT VISIT EST Phone Office/Outpatient Visit,New, [facility] 2022 Office/Outpatient Visit,[facility], Mod 2018 X-Ray Exam Of Spine, Single [...] EST Phone [facility], [address], [place], [place], [id number] , [place] tel: [phone] [facility] No Information 3 Michael Anthony. [facility] [place], [address] [place] [address], [address], [place], [address], [place]. tel: [phone] Referring Provider: Lorenzo Dc, [facility] [address] [place] [address], [address], [address]. tel:[phone] Office/Outpa tient Visit,New, Mod [facility], [address], [place], [place], [id number] , [place] tel:[phone] [facility] Spinal stenosis, lumbar region with neurogenic claudication 3 Michael Anthony. [facility], [address] [place] [address], [address], [place], [address], [place]. [phone] Referring Provider: Lorenzo Dc, [facility] [address], [address], [address]. tel:[phone] Office/Outpa tient Visit,Est, Mod [facility], [address], [place], [place], [id number] , [place] tel: [phone] [facility] Encounter for follow-up examination after completed treatment for conditions other than malignant neoplasmSpinal stenosis, lumbar region with neurogenic claudication 9 Dcebony Alcazar er. [facility] [place], [address], [address], [place], [place], [id number] , [place]. tel: [phone] Referring Provider: Lorenzo Dc, [facility] [place] [address] [place], [address], [place], [address]. tel:[phone] Office/Outpa tient Visit,Est, Mod [facility], [address], [place], [place], [id number] , [place] tel: [phone] [facility] Encounter for other specified surgical aftercare 9 Dcebony Alcazar er. [facility], [address] [place] [address], [address], [facility] [place], [place], [id number] , [place]. tel:[phone] Referring Provider: Rachelle Canela [facility] [address] [place], [address]. tel:[phone] Office/Outpa tient Visit,Est, Mod [facility], [address], [place], [place], [id number] , [place] tel: [phone] [facility] Encounter for other specified surgical aftercare 8 Dao Alcazar er. [facility], [address], [address], [place], [place], [address] , [place]. tel:[phone] Referring Provider: Rachelle Canela [facility] [address] [place], [address]. [phone] Office/Outpa tient Visit,Est, Mod [facility], [address], [place], [place], [id number] , [place] tel: [phone] [facility] Encounter for other specified surgical aftercare Dao zapata. [facility] [place], [address], [address], [place], [place], [id number] , [place]. tel: [phone] Referring Provider: Rachelle Canela [facility] [address] [place], [address]. tel:[phone] [facility], [address], [place], [place], [id number] , [place] tel: [phone] [facility] Encounter for other specified surgical aftercare Dao zapata. [facility], [address] [place] [address], [address], [place], [place], [id number] , [place]. tel: [phone] Referring Provider: Rachelle Canela [facility] [address] [place], [address]. tel:[phone] [facility], [address], [place], [place], [id number] , [place] tel: [phone] [facility] No Information Dao zapata. [facility], [address], [address], [place], [place], [id number] , [place]. tel: [phone] Referring Provider: Rachelle Canela [facility] [address] [place], [address]. tel:[phone] Office/Outpa tient Visit,Est, Mod [facility], [address], [place], [place], [id number] , [place] tel: [phone] [facility] Spinal stenosis, cervical region Dao zapata. [facility] [place], [address] [place] [address], [address], [place], [place], [id number] , [place]. tel:[phone] Referring Provider: Rachelle Canela [facility] [address] [place], [address]. tel:[phone] Office/Outpa tient Visit,Est, Mod [facility], [address], [place], [id number] , [place] [phone] [facility] Spinal stenosis, cervical regionCervical disc disorder at C5-C6 level with myelopathy 7 Dao zapata. [facility] [place], [address], [address], [place], [id number] , [place]. [phone] Referring Provider: Rachelle Canela [facility] [address] [place], [address]. tel:[phone] Office/Outpa tient Visit,New, Mod [facility], [address], [place], [id number] , [place] [phone] [facility] Spinal stenosis, cervical regionCervical disc disorder at C5-C6 level with myelopathy 7 Riki Hodges. [facility] [place], [address], [place], [id number] , [place]. tel:[phone] Referring Provider: Rachelle Canela [facility] [address] [place], [address]. tel:[phone] Family History Family Member Type Diagnosis Age At Onset No Information Payers Payer name Insurance type Covered green party ID Authoramanda hubbard([place] BS [id number] [facility] [id number] Social History Type Description Quantity Date Captured Comments Sex Female Smoking Status No Information Chief Complaint And Reason For Visit No Information Reason For Referral Reason For Referral No Information History Of Present Illness Encounter Date Complaint History Of Prese nt Illness No Information Functional Status Date Functional Assessmen t No Information Instructions Date Instruction Additional Infor mation Weight management: I nstructed to return to General Practitioner timeframe: 1 Month. Related to Overweight Weight Management Education Rela eduardo to Overweight Weight management: I nstructed to return to General Practitioner timeframe: 1 Month. Related to Overweight Weight Management Education Rela eduardo to Overweight Assessments Type Assessment Date No Information Patient Care Teams Name Effective Dates (start - stop) Status Members No Information
--- OUTSIDE RECORDS SUMMARY | 2023-08-21 11:53 | XMS_ITS | Clinical Summary ---
Author Name Unknown Organization [facility] Address [address] [place] [address] Care Team Providers Care Marketing Copywriter Name Role Phone Dory Salgado MD Primary Care Provider [phone] Source Comments You are receiving this document as you are listed as the primary care provider,follow-up provider, or the patient has been referred to you for consultation.This is in compliance with the Medicare and[facility] Cent[facility]aid EHR Incentive Program,which states Providers who transition their patient to another setting of careor provider of care or refers their patient to another provider of care shouldprovide summary care record for each transition of care or referral. [facility] Allergies Active Allergy Reactions Criticality Noted Date [...] disorder, single episode 2003 Overview: LW Onset: 94Mbl00 ; Depression Major NOS Resolved Problems Problem Noted Date Diagnosed Date Resolved Date Allergic state 11/08/2003 03/23/2005 Overview: LW Onset: 86Nvf29 ; Allergic Reaction Immunizations Name Administration Dates [...] MUIR ? CERVICAL CYTOLOGY REPORT Pathology # ??[id number] ?Date Obtained: ? Date Received: CYTOLOGIC IMPRESSION: Negative for intraepithelial lesion or malignancy. ? ADDITIONAL DATA LMP: CLINICAL HIST ? PREV PAP NORM 01-11-03,ACC 25053 LIQUID BASED PAP CERVICAL SPECIMEN ADEQUACY: ?? Satisfactory. ENDOCERVICAL CELLS: ??Present. Verified 03/15/04 by: ??LKR ?(electronic signature) 03/07/2004 8:33 AM CDT Dory Salgado MD LAB_1 Performing Organization Address City/[facility]/ZIP Co de Phone Number HP CONVERSION * Cholesterol, Total and HDL (01/06/2002 10:09 AM CDT) Cholesterol/HDL Ratio Screen 3.9 No normal range HP CONVERSION Cholesterol 186 125 - 199 mg/dL HP CONVERSION HDL Cholesterol 48 40 - 60 mg/dL HP CONVERSION 01/06/2002 10:0 9 AM CDT Derrick Baker MD LAB_1 Performing Organization Address [facility] Co de Phone Number HP CONVERSION from Last 3 Months or Most Recently Relevant to Health Maintenance Care Teams Marketing Copywriter Relationship Specialty Start Date End Date Dory Salgado MD [address] [facility] [address] [place] [address] PCP - General 08/19/10
--- OUTSIDE RECORDS SUMMARY | 2023-08-21 11:53 | XMS_ITS | Referral Summary ---
Author Name Unknown Organization [facility] Address [address] [place] [address] Care Team Providers Care Roll Edge Stitcher Hand Name Role Phone None Reported, Pcp Primary Care Provider Unavail able Source Comments Patient records contain information from all sites at [facility]. For routine questions regarding patient records, call [phone] during business hours, M-F 8:00 AM - 5:00 PM Central Time. Record requests for emergency care only can be directed to [phone] at any time.[facility] Encounters Date Type Department Care Team Description 07/02/2023 Orders Only Division of Gastroenterology in [place], [place] [address] [place] [address] Carlos Serrano M.D. Genetic Susceptibility To Disease from Last 3 Months Allergies Active Allergy [...] with 1 twice daily 0 06/11/2022 Active qobdarpw-yyg-kxjiy acid-biotin (Hair,Skin and Nails,FA-biotin,) 133.3 mcg- 1,666.7 [...] Overview: Added automatically from request for surgery [id number] Added automatically from request for surgery [id number] Malignant Neoplasm Of Breast Upper Outer Quadrant Female Left 10/23/2021 Cancer Staging:Pathologic stage from 04/25/2021:Stage IIB(pT2, pN2a, cM0, G3, ER+, NM+, HER2-) - Unsigned Other Cervical Disc Displace [...] How often do you attend chur or confucianist services? More than 4 times per year 06/29/2022 Do you belong to any clubs o r organizations such as judaism groups, unions, fraternal [...] Answer Date Recorded PHQ-2 Score 2 08/13/2022 [facility] of Occupat ional Health - Occupational Stress [...] Office Visit Division of Plastic Surgery in [place], [place] [address] [place] [phone] Eber Saravia M.D. [address] [place] [phone] 09/15/2023 2:30 PM CDT Comprehensive Visit Department of Physical Medicine and Rehabilitation in [place], [place] [address] [place] [phone] Eber Saravia M.D. [address] [place] [phone] Jeaneth Llamas OYeT., [facility] [address] [place] [phone] Medical Devices Implanted Type Area Coal Briquette Machine Operator Device Identifier Shelf Expiration Date Model / Serial / Lot Hardware E.G. Pins/Screws/R ods Hardware e.g. pins/screws/ rods Mouth Description:Dental implants Clp Hrzn Ti 6 Clp Sm Red - [id number] Implanted:Qty : 1 on 11/12/2021 by Jennifer Berger D.O. at [facility] Hardware e.g. pins/screws/ rods [employer] [id number] 06/17/20262026 7 Clp Hrzn Ti 6 Clp Sm Red - [id number] Implanted:Qty : 1 on 11/12/2021 by Jennifer Berger D.O. at [facility] Hardware e.g. pins/screws/ rods [employer] [id number] 06/17/2026B220002 7 Clp Hrzn Ti 6 Clp Sm Red - [id number] Implanted:Qty : 1 on 11/12/2021 by Jennifer Berger D.O. at [facility] Hardware e.g. pins/screws/ rods [employer] [id number] 07/08/202672 2 Clp Hrzn Ti 6 Clp Sm Red - [id number] Implanted:Qty : 1 on 11/12/2021 by Jennifer Berger D.O. at [facility] Hardware e.g. pins/screws/ rods [employer] [id number] 06/03/2026A220061 5 Clp Hrzn Ti 6 Clp Sm Red - [id number] Implanted:Qty : 1 on 11/12/2021 by Jennifer Berger D.O. at [facility] Hardware e.g. pins/screws/ rods [employer] [id number] 06/03/2026A220061 5 Clp De Baca Ti Spr Mcr 1.5 - [id number] Implanted:Qty : 1 on 11/12/2021 by Eber Saravia M.D. at [facility] Hardware e.g. pins/screws/ rods [employer] [id number] 06/17/2025 [id number] / / [id number] Clp De Baca Ti Mcr - [id number] Implanted:Qty : 1 on 11/12/2021 by Eber Saravia M.D. at [facility] Hardware e.g. pins/screws/ rods [employer] [id number] 08/15/2025 [id number] / / [id number] Clp De Baca Ti Mcr - [id number] Implanted:Qty : 1 on 11/12/2021 by Eber Saravia M.D. at [facility] Hardware e.g. pins/screws/ rods [employer] [id number] 11/14/2025 [id number] / / [id number] Clp De Baca Ti Spr Mcr 1.5 - [id number] Implanted:Qty : 1 on 11/12/2021 by Eber Saravia M.D. at [facility] Hardware e.g. pins/screws/ rods [employer] [id number] 06/17/2025 [id number] / / [id number] Clp Hrzn Ti 6 Clp Sm Red - [id number] Implanted:Qty : 1 on 11/12/2021 by Jennifer Berger D.O. at [facility] Hardware e.g. pins/screws/ rods [employer] [id number] 06/17/2026 / / [id number] Clp Hrzn Ti 6 Clp Sm Red - [id number] Implanted:Qty : 1 on 11/12/2021 by Jennifer Berger D.O. at [facility] Hardware e.g. pins/screws/ rods [employer] [id number] 06/03/2026 / / [id number] Clp Hrzn Ti 24 Clp Md Alec - [id number] Implanted:Qty : 1 on 11/12/2021 by Jennifer Berger D.O. at [facility] Hardware e.g. pins/screws/ rods [employer] [id number] 06/25/2026277135 / / [id number] Clp Hrzn Ti 6 Clp Sm Red - [id number] Implanted:Qty : 1 on 11/12/2021 by Jennifer Berger D.O. at [facility] Hardware e.g. pins/screws/ rods [employer] [id number] 06/03/2026 / / [id number] Clp De Baca Ti Spr Mcr 1.5 - [id number] Implanted:Qty : 1 on 02/09/2023 by Eber Saravia M.D. at [facility] Hardware e.g. pins/screws/ rods [employer] [id number] 11/14/2026 [id number] / / [id number] Clp De Baca Ti Mcr - [id number] Implanted:Qty : 1 on 02/09/2023 by Eber Saravia M.D. at [facility] Hardware e.g. pins/screws/ rods [employer] [id number] / / Clp De Baca Ti Mcr - [id number] Implanted:Qty : 1 on 02/09/2023 by Eber Saravia M.D. at [facility] Hardware e.g. pins/screws/ rods [employer] [id number] / / Clp De Baca Ti Mcr - [id number] Implanted:Qty : 1 on 02/09/2023 by Eber Saravia M.D. at [facility] Hardware e.g. pins/screws/ rods [employer] [id number] / / Clp De Baca Ti Spr Mcr 1.5 - [id number] Implanted:Qty : 1 on 02/09/2023 by Eber Saravia M.D. at [facility] Hardware e.g. pins/screws/ rods [employer] [id number] / / Clp De Baca Ti Spr Mcr 1.5 - [id number] Implanted:Qty : 1 on 02/09/2023 by Eber Saravia M.D. at [facility] Hardware e.g. pins/screws/ rods [employer] [id number] / / Clp De Baca Ti Spr Mcr 1.5 - [id number] Implanted:Qty : 1 on 02/09/2023 by Eber Saravia M.D. at [facility] Hardware e.g. pins/screws/ rods [employer] [id number] / / Imaging Marker Imaging Marker Breast Additional Health Concerns Infection Onset Date Last Indicated Protective Environment 09/04/2022 3 Advance Directives For more information, please contact: [phone] * Full Code (Latest Code Status on File) Date Activated Date Inactivated Comments 11/12/2021 7:28 AM 11/12/2021 9:42 PM Question Answer Comments Full Code: Not Discussed Due to: Not medically appropriate Care Teams Roll Edge Stitcher Hand Relationship Specialty Start Date End Date None Reported, Pcp PCP - General Family Medicine 02/09/23
--- OUTSIDE RECORDS SUMMARY | 2023-08-21 11:53 | XMS_ITS ---
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 Past Plans No past plan information found. Radiation Treatments * Plan Last Treated On Elapsed Days Fractions Treated Prescribed Fraction Dose Prescribed Total Dose [id number] 02/03/2022 35 25 of 25 220 cGy 5,500 cGy Reference Point Last Treated On Elapsed Days Session Dose Total Dose [id number] 02/03/2022 35 220 cGy 5,500 cGy ICRU ltbreast 01/08/2022 9 226 cGy 1,810 cGy [id number] 01/08/2022 9 200 cGy 1,600 cGy Resolved Problems Problem Noted Date Diagnosed Date Resolved Date Quadriplegia 08/16/2021 01/28/2023
--- OUTSIDE RECORDS SUMMARY | 2023-08-21 11:53 | XMS_ITS | Clinical Summary ---
Author Name Unknown Organization [facility] Address [place], [place] [address] Care Team Providers Care Half Backer Name Role Phone Sandy Martins MD Unavailable Linda Velez Primary Care Provider [phone] Allergies Active Allergy Reactions Criticality Noted Date Comments Adhesive Rash Low 02/03/2022 Adhesive Tape-Silicones Rash Medium 12/19/2016 From EKG patches, Dermatitis/Rash Amoxicillin Shortness Of Breath,Hives,Rash,Dy spnea Low 11/11/2003 Ciprofloxacin Shortness Of Breath,Rash,Dyspnea Low 01/07/2017 Gabapentin *Unknown High 01/06/2022 Depression/suicida l ideation Lanolin Itching 05/19/2023 Sulfa (Sulfonamide Antibiotics) Shortness Of Breath,Rash 01/17/2010 [...] (VERZENIO) 150 mg tablet twice a day 02/14/2022 Active Cranberry 400 mg capsule every day 02/18/2022 Active L.acidoph-L.rhamn-B.bi f-B.long (Probiotic Acidophilus Biobeads) 12.9 mg (2 billion cell) TbEC once daily. 02/18/2022 Active cholecalciferol (VITAMIN D3) 2,000 unit capsule Take 50 mcg by mouth once daily. 11/25/2021 Active loperamide (IMODIUM) 2 mg capsule Take 2 mg by mouth one time if needed. Active ondansetron (ZOFRAN ODT) 4 mg disintegrating tablet DISSOLVE ONE TABLET ON THE TONGUE EVERY EIGHT HOURS 11/12/2022 Active PreviDent 5000 Booster Plus 1.1 % pste APPLY A SMALL AMOUNT TO TEETH EVERY NIGHT BRUSH ONTO TEETH BEFORE BEDTIME, THEN EXPECTORATE. DO NOT EAT OR DRINK 30 MINUTES AFTER 02/23/2023 Active predniSONE (DELTASONE) 20 mg tabletIndications:Acut e midline low back pain without sciatica Take 3 tablets by mouth for 3 days then 2 tablets by mouth for 3 days then 1 tablet by mouth for 3 days then 1/2 tablet by mouth for 3 days. Take with food. 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 and unspecified ma [...] Department Care Team Description 06/05/2023 10:45 AM PNEUMATIC SYSTEMS OPERATOR Office Visit [address] [phone] Alisha Arboleda, Follow Up 06/04/2023 Orders Only [facility] [address] [place] [address] Linda Velez PA <No scans attached> 06/04/2023 Travel 06/03/2023 4:05 PM PNEUMATIC SYSTEMS OPERATOR Office Visit [address] [address] Linda Velez PA Medication Management (refill) 06/03/2023 Travel from Last 3 Months Immunizations Name Administration Dates Next Due COVID-19 vaccine ([employer] 30mcg/0.3mL) HERNANDO MARIA 09/29/2020,09/07/2020 Influenza RIV4 (Age 18+ Years) PRESERV [...] Comments Blood Pressure 134/64 06/05/2023 10:40 AM PNEUMATIC SYSTEMS OPERATOR Pulse 76 06/05/2023 10:40 AM PNEUMATIC SYSTEMS OPERATOR Temperature 37 ??C (98.6 ??F) 05/19/2023 2:07 PM PNEUMATIC SYSTEMS OPERATOR Respiratory Rate 20 11/01/2021 1:48 PM CDT Oxygen Saturation 98% 06/05/2023 10:40 AM PNEUMATIC SYSTEMS OPERATOR Inhaled Oxygen Concentration - - Weight 90.3 kg (199 lb) 06/03/2023 4:09 PM PNEUMATIC SYSTEMS OPERATOR Height 165.1 cm (5' 5) 06/03/2023 4:09 PM PNEUMATIC SYSTEMS OPERATOR Body Mass Index 33.12 06/03/2023 4:09 PM PNEUMATIC SYSTEMS OPERATOR Plan of Treatment Upcoming Encounters Date Type Department Care Team (Late st Contact Info) Description 06/10/2024 10:45 AM PNEUMATIC SYSTEMS OPERATOR Office Visit [facility] [address] [place] [phone] Alisha Arboleda DO [address] [place] [address] Health Maintenance Due Date Last Done Comments HIV for age 15-65 1984 Hepatitis C screening for age 18-79 1987 COVID-19 vaccine series (2022- season) 2023 02/17/2022, 05/14/2021, 09/29/2020, Additional history exists Mammogram for age 45-75 08/15/2023 08/15/19, 11/09/2021 (Verified in Care Everywhere or Patient Record), 03/15/2021, Additional history exists Influenza for age 50-64 01/17/2024 05/05/20, 04/06/2020, 04/09/2018, Additional history exists BMI (ht and wt on same day) for age 18+ 06/03/2024 06/03/2023, 05/19/2023, 11/07/2022, Additional history exists Depression screening for age 12+ 06/05/2024 06/05/2023, 06/03/2023, 06/13/2022, Additional history exists Tetanus booster 12/02/2026 12/02/2016, 05/19, 06/11/2004 (Completed outside of [facility]), Additional history exists Lipids for age 45-75 06/10/2027 06/10/2022, 01/22/2021, 08/11/2011, Additional history exists Colonoscopy through age 75 05/20/202905/20, 05/20/2019 (Verified in Care Everywhere or Patient Record) Tdap Completed 12/02/2016 Zoster (shingles) series for age 50+ Completed 05/07/2021, 03/07/2021 Pneumococcal series for age 6-64 Aged Out No longer eligible based on patient's age to complete this topic Medical Devices Implanted Type Area Florist Helper Device Identifier Shelf Expiration Date Model / Serial / Lot [id number] Implanted:Qty: 1 on 12/10/2016 by Lorenzo Dc MD at [facility] Explanted:at [facility] (Quantity not on file) N/A: Spine [employer] 02/20/2019 [id number] / [id number] / Description:SERV Exam18 AVS CERV 4 DEG [place] [id number] one Matrix 1cc Grundy Plus Paste Dbm Implanted:Qty: 1 on 12/10/2016 by Lorenzo Dc MD at [facility] Explanted:at [facility] (Quantity not on file) N/A: Spine Med[employer]onic Spine/Ortho 07/02/2018 [id number] / [id number] / Port W/8fr 1 Lumen Powerport - [id number] Implanted:Qty: 1 on 05/21/2021 by Katherine Hawthorne MD at [employer] [facility] Right: Jugular Vein [employer] 10/15/2022 [id number] / [id number] Procedures Procedure Name Priority Date/Time Associated Diagnosis Comments TSH Routine 06/03/2023 4:34 PM PNEUMATIC SYSTEMS OPERATOR Congenital 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 SCAN-MAMMOGRAPHY REPORT 08/14/2022 12:00 AM CDT LC LIPID PANEL AND CHOL/HDL RATIO Routine 06/10/2022 4:21 PM PNEUMATIC SYSTEMS OPERATOR Screening for hyperlipidemia SCAN-COLONOSCOPY 05/20/2019 12:0 0 AM PNEUMATIC SYSTEMS OPERATOR from Last 3 Months or Most Recently Relevant to Health Maintenance Results * TSH (06/03/2023 4:34 PM PNEUMATIC SYSTEMS OPERATOR) TSH 3.03 0.27 - 4.20 uIU/mL 06/03/2023 9:49 PM PNEUMATIC SYSTEMS OPERATOR [facility] Blood BLOOD SPECIMEN / Unknown Capillary / Unknown 06/03/2023 4:34 PM PNEUMATIC SYSTEMS OPERATOR 06/03/2023 4:34 PM PNEUMATIC SYSTEMS OPERATOR Narrative [facility] - 06/03/2023 9:49 PM PNEUMATIC SYSTEMS OPERATOR In Adults, TSH values between 5.00 and 10.00 uIU/ml do not necessarily indicate the presence of Hypothyroidism. Correlation with clinical findings such as presence of goiter and/or Thyroperoxidase (TPO) Antibody may be helpful. For more information please refer to RAHEEM 2004; 291: 228-238. Linda BOLDEN CHEMISTRY [facility] [address] [place] [address], * SCAN-MAMMOGRAPHY REPORT (08/14/2022 12:00 AM CDT) Anatomical Region Laterality Modality Other Scanner OTHER * LC LIPID PANEL AND CHOL/HDL RATIO (06/10/2022 4:21 PM PNEUMATIC SYSTEMS OPERATOR) Cholesterol, Total 169 100 - 199 mg/dL 06/14/2022 12:06 AM [facility] Triglycerides 144 0 - 149 mg/dL 06/14/2022 12:06 AM [facility] HDL Cholesterol 67 >39 mg/dL 12:06 AM [facility] VLDL Cholesterol Gino 25 5 - 40 mg/dL 06/14/2022 12:06 AM [facility] LDL Chol Calc (NIH) 77 0 - 99 mg/dL 06/14/2022 12:06 AM [facility] T. Chol/HDL Ratio 2.5 0.0 - 4.4 ratio 06/14/2022 12:06 AM PNEUMATIC SYSTEMS OPERATOR [facility] Comment: ?T. Chol/HDL Ratio ?Men ??Women ?1/2 Avg.Risk ??3.4 ?3.3 ?Avg.Risk ??5.0 ?4.4 ? 2X Avg.Risk ??9.6 ?7.1 ? 3X Avg.Risk 23.4 ?? 11.0 Blood BLOOD SPECIMEN / Unknown Venipuncture / Unknown 06/10/2022 4:21 PM PNEUMATIC SYSTEMS OPERATOR 06/10/2022 4:23 PM PNEUMATIC SYSTEMS OPERATOR Narrative [facility] - 06/14/2022 12:06 AM PNEUMATIC SYSTEMS OPERATOR Performed at: ??01 - [facility] [address], [place] ??[id number] Drum Attendant: Huey Sanchez MD, Phone: ??[phone] Linda BOLDEN SEND OUTS [facility] [place] [address], * SCAN-COLONOSCOPY (05/20/2019 12:00 AM PNEUMATIC SYSTEMS OPERATOR) Scanner OTHER from Last 3 Months or Most Recently Relevant to Health Maintenance Advance Directives * Full Code (Latest Code Status on File) Date Activated Date Inactivated Comments 05/21/2021 6:09 AM 05/21/2021 12:12 PM Question Answer Comments Code Status Discussion: Unable to Assess Preferences, Provider to review later * Full Code Date Activated Date Inactivated Comments 04/25/2021 9:15 AM 04/25/2021 6:18 PM Question Answer Comments Code Status Discussion: Unable to Assess Preferences, Provider to review later * Full Code Date Activated Date Inactivated Comments 12/19/2016 1:21 PM 01/22/2017 1:22 PM * Full Code Date Activated Date Inactivated Comments 12/10/2016 9:51 PM 12/19/2016 1:20 PM * Full Code Date Activated Date Inactivated Comments 12/10/2016 9:57 AM 12/10/2016 9:13 PM Question Answer Comments Code Status Discussion: Not Discussed Care Teams Half Backer Relationship Specialty [place] [address] [place] [address] PCP - General Physician Real Time Operator 06/13/22 Sandy Martins MD [address] [facility] [place] [address] Medical Oncologist Oncology 03/29/21
--- OUTSIDE RECORDS SUMMARY | 2023-08-21 11:53 | XMS_ITS ---
Author Name Unknown Organization [facility] Address [address] [place] [address] Care Team Providers Care Booker Name Role Phone Unavailable Unavailable Unavailable Surgery Details Not on file Complications Check Surgery Details section. Procedure Estimated Blood Loss Check Surgery Details section. Procedure Findings Check Surgery Details section. Procedure Specimens Taken Check Surgery Details section.
--- OUTSIDE RECORDS SUMMARY | 2023-08-21 11:54 | XMS_ITS | Encounter Summary ---
Author Name Unknown Organization [facility] Address [address] [place] [address] Care Team Providers Care Perfect Binder Feeder Offbearer Name Role Phone None Reported, Pcp Primary Care Provider Unavail able Encounter Details Date Type Department Care Team (Latest Contact Info) Description 05/07/2023 Clinical Communication Department of Physical Medicine and Rehabilitation in [place], [place] [address] [place] [address] Jeaneth Llamas, O.T., [facility] [address] [place] [address] Social History Tobacco Use Types Packs/Day Years [...] Answer Date Recorded PHQ-2 Score 2 08/13/2022 [facility] of Occupat ional Health - Occupational [...] and she will get a hold of steam fitter supervisor maintenance in [facility]. BER WORKER * Telephone Encounter - Nahomi Shannon - 05/07/2023 1:02 PM CST Jeaneth/Agnes Joceline called in this afternoon regarding her orders for lymphedema sleeve and glove. When she went to the [facility] Store in [place], they were missing the order for the [...] Best number to reach her at is [phone]. Thank you. BER WORKER documented in this encounter Plan of Treatment Upcoming Encounters Date Type Department Care Team (Latest Contact Info) Description 09/15/2023 1:00 PM CDT Office Visit Division of Plastic Surgery in [place], [place] [address] [place] [address] Eber Saravia M.D. [address] [place] [address] 09/15/2023 2:30 PM CDT Comprehensive Visit Department of Physical Medicine and Rehabilitation in [place], [place] [address] [place] [address] Eber Saravia M.D. [address] [place] [address] Jeaneth Llamas O.T., ALICE [address] [place] [address] documented as of this encounter Visit Diagnoses Not on filedocumented in this encounter Additional Health Concerns Infection Onset Date Last Indicated Resolved Time Protective Environment 09/04/2022 09/04/2022 Assessment Noted Time PHQ-9 Depression Total Score: 12 023 10:14 AM CDT documented as of this encounter Care Teams Perfect Binder Feeder Offbearer Relationship Specialty Start Date End Date None Reported, Pcp PCP - General Family Medicine 02/09/23 documented as of this encounter
--- OUTSIDE RECORDS SUMMARY | 2023-08-21 11:54 | XMS_ITS | Encounter Summary ---
Author Name Unknown Organization [facility] Address [address] [place] [id number] Care Team Providers Care Catering Truck Driver Name Role Phone None Reported, Pcp Primary Care Provider Unavail able Encounter Details Date Type Department Care Team (Late st Contact Info) Description 07/02/2023 Orders Only Division of Gastroenterology in [place], [place] [address] [place] [phone] Carlos Serrano M.D. [address] [place] [phone] Genetic Susceptibility To Disease Social History Tobacco [...] How often do you attend chur or congregational services? More than 4 times per year [...] Answer Date Recorded PHQ-2 Score 2 08/13/2022 [facility] - Occupational [...] Office Visit Division of Plastic Surgery in [place], [place] [address] [place] [address] Eber Saravia M.D. [address] [place] [address] 09/15/2023 2:30 PM CDT Comprehensive Visit Department of Physical Medicine and Rehabilitation in [place], [place] [address] [place] [address] Eber Saravia M.D. [address] [place] [phone] Jeaneth Llamas O.T., T-KATHY [address] [place] [phone] documented as of this encounter Procedures Procedure Name Priority Date/Time Associated Diagnosis Comments EXT TAPESTRY Routine 04/01/2022 12:00 AM ASTRONAUTICAL ENGINEER Genetic Susceptibility To Disease documented in this encounter Results * EXT Tapestry (04/01/2022 12:00 AM ASTRONAUTICAL ENGINEER) Gene Studied BRCA1,BRCA2,MLH1,MSH 2, MSH6,PMS2,EPCAM,APOB,L DLR,LDLRAP1,PCSK9 04/30/2022 12:00 AM ASTRONAUTICAL ENGINEER DANNY Genetic Disease Assessed Evaluation of 11 genes associated with Hereditary Breast and Ovarian Cancer, Westfall Syndrome and Familial Hypercholesterolemia. 04/30/2022 12:00 AM ASTRONAUTICAL ENGINEER DANNY Genetic Analysis Overall Interpretation Negative results through Tapestry do not replace diagnostic testing for patients with a personal or family history of cancer/hypercholestero lemia due to limitations with methodology. Consider a referral to a genetic counselor for diagnostic testing if warranted. 04/30/2022 12:00 AM ASTRONAUTICAL ENGINEER DANNY Genetic Analysis Report See Tapestry PDF [...] enriched using a custom set of reagents ([employer]+ chemistry). Targeted regions were sequenced using an Illumina DNA sequencing system. Your sequence was matched to a modified version of the industry standard reference genome (GRCh38). Variant calling was completed using a customized version of [employer]'s [employer] software, requiring 20x coverage for validated variant calls. Copy Number Variants (CNVs) were called using a proprietary bioinformatics pipeline that compared the coverage profile of your sample with the coverage profiles of other reference set samples. [facility] [employer] then analyzed the generated variant data for the exons and 10 bp of flanking intronic sequence (and select tagged intronic variants) of the 11 genes included in Vedantu from the Room n [employer] Database. Your sample was reviewed for single [...] assessments and medical management. 04/30/2022 12:00 AM ASTRONAUTICAL ENGINEER DANNY Human Reference Sequence Assembly GRCh38 04/30/2022 12:00 AM ASTRONAUTICAL ENGINEER DANNY Saliva (Mouth) 04/01/2022 Carlos Serrano M.D. LAB GENETI C TESTING [place] [address] [facility], [address] [place] [address], [facility] [employer] [address] [address] [facility], [address] [place] [address] documented in this encounter Visit Diagnoses Diagnosis Genetic Susceptibility To Disease documented in this encounter Additional Health Concerns Infection Onset Date Last Indicated Resolved Time Protective Environment 09/04/2022 09/04/2022 Assessment Noted Time PHQ-9 Depression Total Score: 12 023 10:14 AM CDT documented as of this encounter Care Teams Catering Truck Driver Relationship Specialty Start Date End Date None Reported, Pcp PCP - General Family Medicine 02/09/23 documented as of this encounter
== END 2023-08-13 16:02 | disposition home or self-care (01) ==
LOC: NFLDREF 08-14 06:36
PROVIDERS: PCP Physician Assistant; Referring Provider Physician Assistant; Visit Provider Physician Assistant
DX: C50.612 Malignant neoplasm of axillary tail of left female breast (principal)
CPT/HCPCS: 80053

== ENCOUNTER 2023-08-17 08:04 | Outpatient (CLI) | payer BC, SELFPAY ==
--- NOTE | 2023-08-17 08:15 | MM_ITS ---
Patient: CLIFF MUIR Facility:?[facility] Patient ID:?[id number] Site Patient ID:?[id number]. Site :?[id number] Study:?XRay-Breast Bilateral 3D W/CAD-08/17/2023 8:30:59 AM Ordering Physician:Linda Guzman Final Report: BILATERAL SCREENING MAMMOGRAM WITH COMPUTER-AIDED DETECTION AND TOMOSYNTHESIS TECHNIQUE: CC and MLO views were obtained. These mammographic images have been obtained using full-field digital technique. These mammographic images were interpreted with the benefit of computer-aided detection. Breast Tomosynthesis was used in this interpretation. COMPARISON FILM: 08/14/22, 03/15/21, 05/01/20. FINDINGS: The breasts are extremely dense, which lowers the sensitivity of mammography IMPRESSION: There is no radiographic evidence for malignancy. ASSESSMENT: BI-RADS Category 2: Benign RECOMMENDATION: Routine screening mammogram in 1 year. A lay language report of this examination will be provided to the patient. Ronnell Gonzalez M.D. Diagnostic Radiologist [email or web address] Transcribed: 1:46 p.mYe hopkins/Dictated by: Ronnell Gonzalez MD @ 08/18/2023 11:19:00 AM Signed by:Shira Gonzalez MD @08/18/2023 1:52:29 PM (Electronic Signature)
== END 2023-08-17 08:05 | disposition home or self-care (01) ==
LOC: MAMMO 08:04
PROVIDERS: PCP Physician Assistant; Visit Provider Physician Assistant
DX: Z12.31 Encounter for screening mammogram for malignant neoplasm of breast (principal); R92.2 Inconclusive mammogram
CPT/HCPCS: 77063; 77067

== ENCOUNTER 2023-09-18 14:15 | Outpatient (CLI) | payer BC, SELFPAY ==
--- OUTSIDE RECORDS SUMMARY | 2023-09-18 14:17 | XMS_ITS | Clinical Summary ---
Author Name Unknown Organization [facility] Address [address] [place] [address] Care Team Providers Care Press Brake Operator Name Role Phone None Reported, Pcp Primary Care Provider Unavail able Source Comments Patient records contain information from all sites at [facility]. For routine questions regarding patient records, call [phone] during business hours, M-F 8:00 AM - 5:00 PM Central Time. Record requests for emergency care only can be directed to [phone] at any time.[facility] Allergies Active Allergy Reactions Criticality Noted Date [...] mcg by mouth every morning before breakfast. 03/19/2021 Active tamoxifen (NOLVADEX) 20 mg tablet Take 20 mg by mouth daily. 10/11/2021 Active triamcinolone (KENALOG) 0.1 % cream as needed. 09/06/2021 Active L.acid/L.casei/B.bif /B.luís/FOS (PROBIOTIC BLEND ORAL) Take 1 tablet by mouth daily. 11/25/2021 Active cholecalciferol (VITAMIN D3) 50 mcg (2,000 Unit) capsule Take 50 mcg by mouth daily. 11/25/2021 Active PreviDent 5000 Booster Plus 1.1 % paste dental paste Apply 1 application to the mouth or throat daily. 12/02/2021 Active Verzenio 150 mg tablet Take 150 mg by mouth as directed. Alternating days 1 daily with 1 twice daily 06/11/2022 Active tuptnseg-xfu-gxvwc acid-biotin (Hair,Skin and Nails,FA-biotin,) 133.3 mcg- 1,666.7 mcg capsule Take 1 capsule by mouth daily. Active cranberry 400 mg capsule Take 400 mg by mouth daily. 02/18/2022 Active loperamide (IMODIUM A-D) 2 mg capsule Take 2 mg by mouth as needed for diarrhea. Active acetaminophen (TYLENOL) 500 mg tablet Take 2 tablets (1,000 mg total) by mouth every 6 (six) hours as needed for pain. 02/10/2023 Active ibuprofen (ADVIL,MOTRIN) 200 mg tablet Take 2 tablets (400 mg total) by mouth every 6 (six) hours as needed for pain. 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 Fusion Cervical Spine Status Post 01/28/2023 Polyneuropathy Due To Drug 01/28/2023 Lymphedema Post Mastectomy 07/04/2022 Overview: Added automatically from request for surgery [id number] Added automatically from request for surgery [id number] Malignant Neoplasm Of Breast Upper Outer Quadrant Female Left 10/23/2021 Cancer Staging:Pathologic stage from 04/25/2021:Stage IIB(pT2, pN2a, cM0, G3, ER+, RI+, HER2-) - Unsigned Other Cervical Disc Displace ment Unspecified Cervical Region 12/10/2016 Hypothyroidism 08/05/2010 Meniere's Disease Right 08/05/2010 Resolved Problems Problem Noted Date Diagnosed Date Resolved Date Quadriplegia 08/16/2021 01/28/2023 Encounters Date Type Department Care Team Description 09/15/2023 2:30 PM CDT Comprehensive Visit Department of Physical Medicine and Rehabilitation in [place], [place] [address] [place] [address] Eber Saravia M.D. Richardson, Sara R OSilvestre., T-KATHY Lymphedema Post Mastectomy (Primary Dx) 09/15/2023 1:00 PM CDT Office Visit Division of Plastic Surgery in [place], [place] [address] [place] [address] Eber Saravia M.D. Pain Thumb Left (Primary Dx) 09/15/2023 Ancillary Procedure Department of Plastic and Reconstructive Surgery Arrived 07/02/2023 Orders Only Division of Gastroenterology in [place], [place] [address] [place] [address] Carlos Serrano M.D. Genetic Susceptibility To Disease [...] runs in family. I didn't have it. [facility] [employer] Answer Date Recorded In the past 12 months has [facility] [employer], gas, oil, or water [employer] threatened to shut off services in your home? No 09/09/2023 Humiliation, Afraid, Rape, and Kick questionnair e [...] week 06/29/2022 How often do you attend [facility] or tenriism services? More than 4 times per year 06/29/2022 Do you belong to any clubs o r organizations such as pentecostal groups, unions, fraternal or athletic groups, or [...] Answer Date Recorded PHQ-2 Score 2 08/13/2022 [facility] - Occupational [...] to strenuous exercise (like a brisk walk)? 3 days 09/09/2023 On average, how many minutes do you engage in exercise at this level? 20 min 09/09/2023 Hunger Vital Sign Answer Date Recorded Within the past 12 months, y ou worried that your food would run out before you got the money to buy more. Never true 09/09/19 24 Within the past 12 months, t he food you bought just didn't last and you didn't have money to get more. Never true 09/09/2023 PRAPARE - Transportation Answer Date Re corded In the past 12 months, has l ack of transportation kept you from medical appointments or from getting medications? No 08/17 In the past 12 months, has l ack of transportation kept you from meetings, work, or from getting things needed for daily living? No 09/09/2023 Depression Answer Date Recor ded PHQ-9 Total Score (max 27) 12 08/13 Nutrition Answer Date Recorded On average, how many serving s of fruits and vegetables do you eat per day (serving size is equal to 1 cup or approximately the size of a tennis ball)? 0-2 09/09/2023 Dental Answer Date Recorded Dental: Regular Dentist Yes 11/01/19 Employment Answer Date Recorded Employment status Employed and actively working without restrictions 09/09/2023 Housing Stability Answer Date Recorded What is your living situation today? I have a [facility] place to live 09/09/2023 Education Answer Date Recorded What is the [...] CDT Inhaled Oxygen Concentration - - Weight 91.5 kg (201 lb 11.5 oz) 024 12:58 PM CDT Height 165.1 cm (5' 5) 09/15/2023 12:5 8 PM CDT Body Mass Index 33.57 09/15/2023 12:58 PM CDT Plan of Treatment Health Maintenance Due Date Last Done Comments CT Colonography 1969 Cologuard 1969 FIT 1969 Hepatitis C Screening 1969 Pneumococcal vaccine (0-64 years) (1 of 2 - PCV) 1975 Hepatitis B Vaccines (1 of 3 - 19+ 3-dose series) 1988 Mammogram 11/07/2022 11/07/2021, 12/0 01/2021, 04/25/2021, Additional history exists COVID-19 Vaccine [...] 05/07/2021, 03/07/2021 Influenza Vaccine Completed 03/14/2023, , 04/06/2020, Additional history exists HPV Vaccines Aged Out No longer eligi ble based on patient's age to complete this topic Medical Devices Implanted Type Area Non Emergency Services Ambulance Driver Device Identifier Shelf Expiration Date Model / Serial / Lot Hardware E.G. Pins/Screws/R ods Hardware e.g. pins/screws/ rods Mouth Description:Dental implants Clp Hrzn Ti 6 Clp Sm Red - [id number] Implanted:Qty : 1 on 11/12/2021 by Jennifer Berger D.O. at [facility] Hardware e.g. pins/screws/ rods [employer] [id number] 06/17/2026B220002 7 Clp Hrzn Ti 6 Clp Sm Red - [id number] Implanted:Qty : 1 on 11/12/2021 by Jennifer Berger D.O. at [facility] Hardware e.g. pins/screws/ rods [employer] [id number] 06/17/2026 / [id number] Clp Hrzn Ti 6 Clp Sm Red - [id number] Implanted:Qty : 1 on 11/12/2021 by Jennifer Berger D.O. at [facility] Hardware e.g. pins/screws/ rods [employer] [id number] 07/08/2026B220072 2 Clp Hrzn Ti 6 Clp Sm Red - [id number] Implanted:Qty : 1 on 11/12/2021 by Jennifer Berger D.O. at [facility] Hardware e.g. pins/screws/ rods [employer] [id number] 06/03/2026A220061 5 Clp Hrzn Ti 6 Clp Sm Red - [id number] Implanted:Qty : 1 on 11/12/2021 by Jennifer Berger D.O. at [facility] Hardware e.g. pins/screws/ rods [employer] [id number] 06/03/2026A220061 5 Clp [place] Ti Spr Mcr 1.5 - [id number] Implanted:Qty : 1 on 11/12/2021 by Eber Saravia M.D. at [facility] Hardware e.g. pins/screws/ rods [employer] [id number] 06/17/2025 [id number] / / [id number] Clp [place] Ti Mcr - [id number] Implanted:Qty : 1 on 11/12/2021 by Eber Saravia M.D. at [facility] Hardware e.g. pins/screws/ rods [employer] [id number] 08/15/2025 [id number] / / [id number] Clp [place] Ti Mcr - [id number] Implanted:Qty : 1 on 11/12/2021 by Eber Saravia M.D. at [facility] Hardware e.g. pins/screws/ rods [employer] [id number] 11/14/2025 [id number] / / [id number] Clp [place] Ti Spr Mcr 1.5 - [id number] Implanted:Qty : 1 on 11/12/2021 by Eber Saravia M.D. at [facility] Hardware e.g. pins/screws/ rods [employer] [id number] 06/17/2025 [id number] / / [id number] Clp Hrzn Ti 6 Clp Sm Red - [id number] Implanted:Qty : 1 on 11/12/2021 by Jennifer Berger D.O. at [facility] Hardware e.g. pins/screws/ rods [employer] [id number] 06/17/2026 [id number] / / [id number] Clp Hrzn Ti 6 Clp Sm Red - [id number] Implanted:Qty : 1 on 11/12/2021 by Jennifer Berger D.O. at [facility] Hardware e.g. pins/screws/ rods [employer] [id number] 06/03/2026 / / [id number] Clp Hrzn Ti 24 Clp Md Alec - [id number] Implanted:Qty : 1 on 11/12/2021 by Jennifer Berger D.O. at [facility] Hardware e.g. pins/screws/ rods [employer] [id number] 06/25/2026 [id number] / / [id number] Clp Hrzn Ti 6 Clp Sm Red - [id number] Implanted:Qty : 1 on 11/12/2021 by Jennifer Berger D.O. at [facility] Hardware e.g. pins/screws/ rods [employer] [id number] 06/03/2026353184 / / [id number] Clp [place] Ti Spr Mcr 1.5 - [id number] Implanted:Qty : 1 on 02/09/2023 by Eber Saravia M.D. at [facility] Hardware e.g. pins/screws/ rods [employer] [id number] 11/14/2026 [id number] / / [id number] Clp [place] Ti Mcr - [id number] Implanted:Qty : 1 on 02/09/2023 by Eber Saravia M.D. at [facility] Hardware e.g. pins/screws/ rods [employer] [id number] / / Clp [place] Ti Mcr - [id number] Implanted:Qty : 1 on 02/09/2023 by Eber Saravia M.D. at [facility] Hardware e.g. pins/screws/ rods [employer] [id number] / / Clp [place] Ti Mcr - [id number] Implanted:Qty : 1 on 02/09/2023 by Eber Saravia M.D. at [facility] Hardware e.g. pins/screws/ rods [employer] [id number] / / Clp [place] Ti Spr Mcr 1.5 - [id number] Implanted:Qty : 1 on 02/09/2023 by Eber Saravia M.D. at [facility] Hardware e.g. pins/screws/ rods [employer] [id number] / / Clp [place] Ti Spr Mcr 1.5 - [id number] Implanted:Qty : 1 on 02/09/2023 by Eber Saravia M.D. at [facility] Hardware e.g. pins/screws/ rods [employer] [id number] / / Clp [place] Ti Spr Mcr 1.5 - [id number] Implanted:Qty : 1 on 02/09/2023 by Eber Saravia M.D. at [facility] Hardware e.g. pins/screws/ rods [employer] [id number] / / Imaging Marker Imaging Marker Breast Procedures Procedure Name Priority Date/Time Associated Diagnosis Comments PLASTIC AND RECON SURGERY IMAGE EXAM Routine 09/15/2023 12:00 AM CDT EXTI THYROID-STIMULATING HORMONE-SENSITIVE (S-TSH), S Routine 06/03/2023 4:34 PM FASHION PHOTOGRAPHER COMPREHENSIVE METABOLIC PANEL, S/P Routine 01/28/2023 11:43 AM CDT Lymphedema Post Mastectomy EXTI LIPID PANEL, S Routine 06/10/2022 4 :21 PM FASHION PHOTOGRAPHER MR BREAST BILATERAL WITHOUT AND WITH IV CONTRAST RAD - Routine (most inpatients and all outpatients) 11/07/2021 8:35 PM CDT Malignant Neoplasm Of Breast Female Left (HCC) 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 The clinical documentation to support these images can be found on the encounter that produced images. Provider Not In System IMG NON RAD IMAGI NG PROCEDURES [facility] NA * (ABNORMAL) Comprehensive Metabolic Panel (01/28/2023 11:43 [...] CDT Eber Saravia M.D. LAB BLOOD ADD-ON [facility] [address] [place] [address], [facility] DTL [facility] [address] [place] [address] * MR Breast Bilateral without and with IV Contrast (11/07/2021 8:35 PM CDT) Anatomical Region Laterality Modality Breast, Breast Imaging RST L OS, Breast Imaging ARZ LOS, Breast Imaging FLA LOS Bilateral Magnetic Resonance 11/08/2021 7:39 AM CDT Impressions 11/08/2021 9:05 AM CDT 1. Postoperative changes in the left breast with no evidence of residual or recurrent malignancy in the left breast. 2. Single enlarged left axillary lymph node is indeterminate. 3. Benign fibroadenoma in the right breast with no findings of malignancy. 4. Indeterminate right renal lesion may represent a hemorrhagic cyst. RECOMMENDATION: ??Clinical Management Proceed with planned axillary lymph node dissection. Renal ultrasound is recommended for further evaluation of the possible right renal lesion. ASSESSMENT: ??BI-RADS: 2: Benign. Narrative 11/08/2021 9:05 AM CDT REVISED REPORT: EXAM: ??MR BREAST BILATERAL WITHOUT AND WITH IV CONTRAST INDICATION: ??Problem solving HISTORY: ??History of left breast invasive ductal carcinoma diagnosed 03/2021 status post breast conservation therapy in April 2021, with positive margins and 5 of 6 sentinal nodes positive for malignancy. ?? HORMONAL STATUS: ??Postmenopausal. COMPARISON: ??Prior exam(s) were available and reviewed for comparison. TECHNIQUE: ??Dynamic enhanced protocol using IV contrast administration with T1 and T2-weighted images and CAD image analysis. FIBROGLANDULAR TISSUE: ??b. Scattered fibroglandular tissue. ?? BACKGROUND PARENCHYMAL ENHANCEMENT: ??a. Minimal FINDINGS: RIGHT BREAST: ??No MRI findings of malignancy in the right breast. Stable oval 1 x 0.5 cm oval T2 hyperintense enhancing mass in the upper inner posterior breast, unchanged from 2011 MRI is benign by definition and should represent a fibroadenoma. RIGHT AXILLA: ??No right axillary lymphadenopathy. ?? LEFT BREAST: ??Postoperative changes in the outer posterior left breast. No residual or suspicious enhancement surrounding the lumpectomy cavity. Specifically, the possible satellite lesion described on the preoperative MRI is no longer visualized. Stable 0.4 cm benign focus of enhancement in the upper inner breast, middle depth. LEFT AXILLA: ??Single mildly enlarged level I axillary lymph node in the high axilla (postcontrast image 12). Other lymph nodes have decreased in size and are now normal by MRI criteria. CHEST WALL: ??No internal mammary lymphadenopathy. ?? Other findings: Left renal cyst. Indeterminate right renal lesion is not definitely a simple cyst and may represent a hemorrhagic cyst. Procedure Note Marina Mace M.D. - 11/08/2021 REVISED REPORT: EXAM: MR BREAST BILATERAL WITHOUT AND WITH IV CONTRAST INDICATION: Problem solving HISTORY: History of left breast invasive ductal carcinoma btiwbucmd39/2021 status post breast conservation therapy in April 2021, with positive margins and 5 of 6sentinal nodes positive for malignancy. HORMONAL STATUS: Postmenopausal. COMPARISON: Prior exam(s) were available and reviewed for comparison. TECHNIQUE: Dynamic enhanced protocol using IV contrast administrationwith T1 and T2-weighted images and CAD image analysis. FIBROGLANDULAR TISSUE: b. Scattered fibroglandular tissue. BACKGROUND PARENCHYMAL ENHANCEMENT: a. Minimal FINDINGS: RIGHT BREAST: No MRI findings of malignancy in the right breast. Stableoval 1 x 0.5 cm oval T2 hyperintense enhancing mass in the upper inner posterior breast, unchangedfrom 2011 MRI is benign by definition and should represent a fibroadenoma. RIGHT AXILLA: No right axillary lymphadenopathy. LEFT BREAST: Postoperative changes in the outer posterior left breast. Noresidual or suspicious enhancement surrounding the lumpectomy cavity. Specifically, the possiblesatellite lesion described on the preoperative MRI is no longer visualized. Stable 0.4 cm benignfocus of enhancement in the upper inner breast, middle depth. LEFT AXILLA: Single mildly enlarged level I axillary lymph node in thehigh axilla (postcontrast image 12). Other lymph nodes have decreased in size and are now normal byMRI criteria. CHEST WALL: No internal mammary lymphadenopathy. Other findings: Left renal cyst. Indeterminate right renal lesion is notdefinitely a simple cyst and may represent a hemorrhagic cyst. IMPRESSION: 1. Postoperative changes in the left breast with no evidence of residualor recurrent malignancy in the left breast. 2. Single enlarged left axillary lymph node is indeterminate. 3. Benign fibroadenoma in the right breast with no findings ofmalignancy. 4. Indeterminate right renal lesion may represent a hemorrhagic cyst. RECOMMENDATION: Clinical Management Proceed with planned axillary lymph node dissection. Renal ultrasound is recommended for further evaluation of the possibleright renal lesion. ASSESSMENT: BI-RADS: 2: Benign. Rosalba Mckinney APRNN.P., M.S. IMG M RI PROCEDURES from Last 3 Months or Most Recently Relevant to Health Maintenance Additional Health Concerns Infection Onset Date Last Indicated Protective Environment 09/04/2022 3 Advance Directives For more information, please contact: [phone] * Full Code (Latest Code Status on File) Date Activated Date Inactivated Comments 11/12/2021 7:28 AM 11/12/2021 9:42 PM Question Answer Comments Full Code: Not Discussed Due to: Not medically appropriate Care Teams Press Brake Operator Relationship Specialty Start Date End Date None Reported, Pcp PCP - General Family Medicine 02/09/23
--- OUTSIDE RECORDS SUMMARY | 2023-09-18 14:17 | XMS_ITS | Referral Summary ---
Author Name Unknown Organization [facility] Address [address] [place] [address] Care Team Providers Care Boiler Maker Name Role Phone None Reported, Pcp Primary Care Provider Unavail able Source Comments Patient records contain information from all sites at [facility]. For routine questions regarding patient records, call [phone] during business hours, M-F 8:00 AM - 5:00 PM Central Time. Record requests for emergency care only can be directed to [phone] at any time.[facility] Encounters Date Type Department Care Team Description 09/15/2023 Ancillary Procedure Department of Plastic and Reconstructive Surgery Arrived 09/15/2023 2:30 PM CDT Comprehensive Visit Department of Physical Medicine and Rehabilitation in [place], [place] [address] [place] [address] Eber Saravia M.D. Richardson, Sara R OYeT., CLT-KATHY Lymphedema Post Mastectomy (Primary Dx) 09/15/2023 1:00 PM CDT Office Visit Division of Plastic Surgery in [place], [place] [address] [place] [address] Eber Saravia M.D. Pain Thumb Left (Primary Dx) 07/02/2023 Orders Only Division of Gastroenterology in [place], [place] [address] [place] [id number] Carlos Serrano M.D. Genetic Susceptibility To Disease [...] daily with 1 twice daily 06/11/2022 Active ygaruqdo-byd-vsuxu acid-biotin (Hair,Skin and Nails,FA-biotin,) 133.3 mcg- 1,666.7 [...] Overview: Added automatically from request for surgery [id number] Added automatically from request for surgery [id number] Malignant Neoplasm Of Breast Upper Outer Quadrant Female Left 10/23/2021 Cancer Staging:Pathologic stage from 04/25/2021:Stage IIB(pT2, pN2a, cM0, G3, ER+, [place]+, HER2-) - Unsigned Other Cervical Disc Displace [...] runs in family. I didn't have it. [facility] Utilities Answer Date Recorded In the past 12 months has e [employer], gas, oil, or water [employer] threatened to shut off services in your [...] any clubs o r organizations such as druze groups, unions, fraternal or athletic groups, or [...] Answer Date Recorded PHQ-2 Score 2 08/13/2022 [facility] of Occupat ional Health - Occupational Stress [...] money to buy more. Never true 09/09/19 Within the past 12 months, t he [...] your living situation today? I have a [facility] [place] place to live 09/09/2023 Education Answer Date [...] 09/15/2023 12:58 PM CDT Plan of Treatment Not on file Medical Devices Implanted Type Area Human Resources Office Manager Device Identifier Shelf Expiration Date Model / Serial / Lot Hardware E.G. Pins/Screws/R ods Hardware e.g. pins/screws/ rods Mouth Description:Dental implants Clp Hrzn Ti 6 Clp Sm Red - [id number] Implanted:Qty : 1 on 11/12/2021 by Jennifer Berger D.O. at [facility] Hardware e.g. pins/screws/ rods Teleflex CallAround [id number] 06/17/2026B220002 7 Clp Hrzn Ti 6 Clp Sm Red - [id number] Implanted:Qty : 1 on 11/12/2021 by Jennifer Berger D.O. at [facility] Hardware e.g. pins/screws/ rods Teleflex CallAround [id number] 06/17/2026B220002 7 Clp Hrzn Ti 6 Clp Sm Red - [id number] Implanted:Qty : 1 on 11/12/2021 by Jennifer Berger D.O. at [facility] Hardware e.g. pins/screws/ rods Teleflex CallAround [id number] 07/08/2026B220072 2 Clp Hrzn Ti 6 Clp Sm Red - [id number] Implanted:Qty : 1 on 11/12/2021 by Jennifer Berger D.O. at [facility] Hardware e.g. pins/screws/ rods [employer] [id number] 06/03/2026A220061 5 Clp Hrzn Ti 6 Clp Sm Red - [id number] Implanted:Qty : 1 on 11/12/2021 by Jennifer Berger D.O. at [facility] Hardware e.g. pins/screws/ rods [employer] [id number] 06/03/2026A220061 5 Clp Alcona Ti Spr Mcr 1.5 - [id number] Implanted:Qty : 1 on 11/12/2021 by Eber Saravia M.D. at [facility] Hardware e.g. pins/screws/ rods Synovis [id number] 06/17/2025 [id number] / / [id number] Clp Alcona Ti Mcr - [id number] Implanted:Qty : 1 on 11/12/2021 by Eber Saravia M.D. at [facility] Hardware e.g. pins/screws/ rods Synovis [id number] 08/15/2025 [id number] / / [id number] Clp Alcona Ti Mcr - [id number] Implanted:Qty : 1 on 11/12/2021 by Eber Saravia M.D. at [facility] Hardware e.g. pins/screws/ rods [employer] [id number] 11/14/2025 [id number] / / [id number] Clp Alcona Ti Spr Mcr 1.5 - [id number] Implanted:Qty : 1 on 11/12/2021 by Eber Saravia M.D. at [facility] Hardware e.g. pins/screws/ rods [employer] [id number] 06/17/2025 [id number] / / [id number] Clp Hrzn Ti 6 Clp Sm Red - [id number] Implanted:Qty : 1 on 11/12/2021 by Jennifer Berger D.O. at [facility] Hardware e.g. pins/screws/ rods [employer] [id number] 06/17/2026460818 / / [id number] Clp Hrzn Ti 6 Clp Sm Red - [id number] Implanted:Qty : 1 on 11/12/2021 by Jennifer Berger D.O. at [facility] Hardware e.g. pins/screws/ rods [employer] [id number] 06/03/2026 / / [id number] Clp Hrzn Ti 24 Clp Md Alec - [id number] Implanted:Qty : 1 on 11/12/2021 by Jennifer Berger D.O. at [facility] Hardware e.g. pins/screws/ rods [employer] [id number] 06/25/2026 / / [id number] Clp Hrzn Ti 6 Clp Sm Red - [id number] Implanted:Qty : 1 on 11/12/2021 by Jennifer Berger D.O. at [facility] Hardware e.g. pins/screws/ rods [employer] [id number] 06/03/2026 / / [id number] Clp Alcona Ti Spr Mcr 1.5 - [id number] Implanted:Qty : 1 on 02/09/2023 by Eber Saravia M.D. at [facility] Hardware e.g. pins/screws/ rods [employer]is [id number] 11/14/2026 [id number] / / [id number] Clp Alcona Ti Mcr - [id number] Implanted:Qty : 1 on 02/09/2023 by Eber Saravia M.D. at [facility] Hardware e.g. pins/screws/ rods [employer]is [id number] / / Clp Alcona Ti Mcr - [id number] Implanted:Qty : 1 on 02/09/2023 by Eber Saravia M.D. at [facility] Hardware e.g. pins/screws/ rods [employer]ovis [id number] / / Clp Alcona Ti Mcr - [id number] Implanted:Qty : 1 on 02/09/2023 by Eber Saravia M.D. at [facility] Hardware e.g. pins/screws/ rods [employer]ovis [id number] / / Clp Alcona Ti Spr Mcr 1.5 - [id number] Implanted:Qty : 1 on 02/09/2023 by Eber Saravia M.D. at [facility] Hardware e.g. pins/screws/ rods Synovis [id number] / / Clp Alcona Ti Spr Mcr 1.5 - [id number] Implanted:Qty : 1 on 02/09/2023 by Eber Saravia M.D. at [facility] Hardware e.g. pins/screws/ rods Synovis [id number] / / Clp Alcona Ti Spr Mcr 1.5 - [id number] Implanted:Qty : 1 on 02/09/2023 by Eber Saravia M.D. at [facility] Hardware e.g. pins/screws/ rods Synovis [id number] / / Imaging Marker Imaging Marker Breast Procedures Procedure Name Priority Date/Time Associated Diagnosis Comments PLASTIC AND RECON SURGERY IMAGE EXAM Routine 09/15/2023 12:00 AM CDT EXTI THYROID-STIMULATING HORMONE-SENSITIVE (S-TSH), S Routine 06/03/2023 4:34 PM UPPER DOUBLER COMPREHENSIVE METABOLIC PANEL, S/P Routine 01/28/2023 11:43 AM CDT Lymphedema Post Mastectomy EXTI LIPID PANEL, S Routine 06/10/2022 4 :21 PM UPPER DOUBLER MR BREAST BILATERAL WITHOUT AND WITH IV [...] Image Exam (09/15/2023 12:00 AM CDT) Cindy IIMS - 09/15/2023 3:15 PM CDT This order has been created and auto-finalized to support the import of images acquired without order. The clinical documentation to support these images can be found on the encounter that produced images. Provider Not In System IMG NON RAD IMAGI NG PROCEDURES [facility] NA * (ABNORMAL) Comprehensive Metabolic Panel [...] CDT Eber Saravia M.D. LAB BLOOD ADD-ON [facility] [address] [place] [address], [facility] [address] [place] [address] * MR Breast Bilateral without and with [...] History of left breast invasive ductal carcinoma bnwdlqdiw68/2021 status post breast conservation therapy in April [...] in the upper inner posterior breast, unchangedfrom 2010 MRI is benign by definition and should [...] possibleright renal lesion. ASSESSMENT: BI-RADS: 2: Benign. Debbie Johansen APRN C.N.P., M.S. IMG M RI PROCEDURES from Last 3 Months or Most Recently Relevant to Health Maintenance Additional Health Concerns Infection Onset Date Last Indicated Protective Environment 09/04/2022 3 Advance Directives For more information, please contact: [phone] * Full Code (Latest Code Status on File) Date Activated Date Inactivated Comments 11/12/2021 7:28 AM 11/12/2021 9:42 PM Question Answer Comments Full Code: Not Discussed Due to: Not medically appropriate Care Teams Boiler Maker Relationship Specialty Start Date End Date None Reported, Pcp PCP - General Family Medicine 02/09/23
--- OUTSIDE RECORDS SUMMARY | 2023-09-18 14:17 | XMS_ITS ---
Author Name Unknown Organization [facility] Address [address] [place] [address] Care Team Providers Care Boring Machine Operator Name Role Phone Unavailable Unavailable Unavailable Surgery Details Not on file Complications Check Surgery Details section. Procedure Estimated Blood Loss Check Surgery Details section. Procedure Findings Check Surgery Details section. Procedure Specimens Taken Check Surgery Details section.
--- OUTSIDE RECORDS SUMMARY | 2023-09-18 14:17 | XMS_ITS ---
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 Past Plans No past plan information found. Radiation Treatments * Plan Last Treated On Elapsed Days Fractions Treated Prescribed Fraction Dose Prescribed Total Dose [id number] 02/03/2022 35 25 of 25 220 cGy 5,500 cGy Reference Point Last Treated On Elapsed Days Session Dose Total Dose [id number] 02/03/2022 35 220 cGy 5,500 cGy ICRU ltbreast 01/08/2022 9 226 cGy 1,810 cGy [id number] 01/08/2022 9 200 cGy 1,600 cGy Resolved Problems Problem Noted Date Diagnosed Date Resolved Date Quadriplegia 08/16/2021 01/28/2023
--- OUTSIDE RECORDS SUMMARY | 2023-09-18 14:17 | XMS_ITS | Clinical Summary ---
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 Secondary and unspecified ma [...] Encounters Date Type Department Care Team Description 08/17/2023 Orders Only [facility] Scanner 1 scan: (1-Ord) [facility], BILAT SCREENING MAMMOGRAM W/ COMPUTER-AIDED DETECTION and TOMOSYNTHESIS, 08/17/2023 from Last 3 Months Immunizations Name Administration Dates Next Due COVID-19 vaccine ([employer] NTDel Sol [place] 30mcg/0.3mL) PF MDVenkatesh 09/29/2020,09/07/2020 Influenza RIV4 (Age 18+ Years) PRESERV [...] Comments Blood Pressure 134/64 06/05/2023 10:40 AM HEALTHCARE CONSULTANT Pulse 76 06/05/2023 10:40 AM HEALTHCARE CONSULTANT Temperature 37 ??C (98.6 ??F) 05/19/2023 2:07 PM HEALTHCARE CONSULTANT Respiratory Rate 20 11/01/2021 1:48 PM CDT Oxygen Saturation 98% 06/05/2023 10:40 AM HEALTHCARE CONSULTANT Inhaled Oxygen Concentration - - Weight 90.3 kg (199 lb) 06/03/2023 4:09 PM HEALTHCARE CONSULTANT Height 165.1 cm (5' 5) 06/03/2023 4:09 PM HEALTHCARE CONSULTANT Body Mass Index 33.12 06/03/2023 4:09 PM HEALTHCARE CONSULTANT Plan of Treatment Upcoming Encounters Date Type Department Care Team (Late st Contact Info) Description 06/10/2024 10:45 AM HEALTHCARE CONSULTANT Office Visit [facility] [address] [place] [address] Alisha Arboleda DO [address] [place], [place] [address] Health Maintenance Due Date Last Done Comments [...] 06/05/2024 06/05/2023, 06/03/2023, 06/13/2022, Additional history exists Mammogram for age 45-75 08/16/2024 08/17/19, 08/14/2022, 11/09/2021 (Verified in Care Everywhere or Patient Record), Additional history exists Tetanus booster 12/02/2026 12/02/2016, 05/19, 06/11/2004 (Completed outside of [facility]), Additional history exists Lipids for age 45-75 06/10/2027 06/10/2022, 01/22/2021, 08/11/2011, Additional history exists Colonoscopy through age 75 05/20/202905/20, 05/20/2019 (Verified in Care Everywhere or Patient Record) Tdap Completed 12/02/2016 Zoster (shingles) series for age 50+ Completed 05/07/2021, 03/07/2021 Pneumococcal series for age 6-64 Aged Out No longer eligible based on patient's age to complete this topic Medical Devices Implanted Type Area Motor Vehicle Light Assembler Device Identifier Shelf Expiration Date Model / Serial / Lot [id number] Implanted:Qty: 1 on 12/10/2016 by Lorenzo Dc MD at [facility] Explanted:at [facility] (Quantity not on file) N/A: Spine [employer] 02/20/2019 [id number] / [id number] / Description:SERV FEE BIO AVS CERV 4 DEG [place] [id number] one Matrix 1cc Cogswell Plus Paste Dbm Implanted:Qty: 1 on 12/10/2016 by Lorenzo Dc MD at [facility] Explanted:at [facility] (Quantity not on file) N/A: Spine Medtronic Spine/Ortho 07/02/2018 [id number] / [id number] / Port W/8fr 1 Lumen Powerport - [id number] Implanted:Qty: 1 on 05/21/2021 by Katherine Hawthonre MD at [facility] Right: Jugular Vein [employer] 10/15/2022 [id number] / / [id number] Procedures Procedure Name Priority Date/Time Associated Diagnosis Comments SCAN-MAMMOGRAPHY REPORT 08/17/2023 12:00 AM CDT LC LIPID PANEL AND CHOL/HDL RATIO Routine 06/10/2022 4:21 PM HEALTHCARE CONSULTANT Screening for hyperlipidemia SCAN-COLONOSCOPY 05/20/2019 12:0 0 AM HEALTHCARE CONSULTANT from Last 3 Months or Most Recently Relevant to Health Maintenance Results * SCAN-MAMMOGRAPHY REPORT (08/17/2023 12:00 AM CDT) Anatomical Region Laterality Modality Other Scanner OTHER * LC LIPID PANEL AND CHOL/HDL RATIO (06/10/2022 4:21 PM HEALTHCARE CONSULTANT) Cholesterol, Total 169 100 - 199 mg/dL 06/14/2022 12:06 AM HEALTHCARE CONSULTANT [facility] Triglycerides 144 0 - 149 mg/dL 06/14/2022 12:06 AM HEALTHCARE CONSULTANT [facility] ([facility]) HDL Cholesterol 67 >39 mg/dL 12:06 AM [facility] ([facility]) VLDL Cholesterol Gino 25 5 - 40 mg/dL 06/14/2022 12:06 AM [facility] ([facility]) LDL Chol Calc (NIH) 77 0 - 99 mg/dL 06/14/2022 12:06 AM [facility] ([facility]) T. Chol/HDL Ratio 2.5 0.0 - 4.4 ratio 06/14/2022 12:06 AM [facility] ([facility]) Comment: ?T. Chol/HDL Ratio ?Men ??Women ?1/2 Avg.Risk ??3.4 ?3.3 ?Avg.Risk ??5.0 ?4.4 ? 2X Avg.Risk ??9.6 ?7.1 ? 3X Avg.Risk 23.4 ?? 11.0 Blood BLOOD SPECIMEN / Unknown Venipuncture / Unknown 06/10/2022 4:21 PM HEALTHCARE CONSULTANT 06/10/2022 4:23 PM [facility] ([facility]) - 06/14/2022 12:06 AM HEALTHCARE CONSULTANT Performed at: ??01 - [facility] [address] [address], [place], [place] ??[id number] Hardwood Floor Refinisher: Huey Sanchez MD, Phone: ??[phone] Linda BOLDEN SEND OUTS [facility] ([facility]) [address] [place] [address], * SCAN-COLONOSCOPY (05/20/2019 12:00 AM HEALTHCARE CONSULTANT) Scanner OTHER from Last 3 Months or [...] Code Status Discussion: Not Discussed Care Teams Technical Training Specialist Relationship Specialty [place] [address] [place] [address] PCP - General Physician Machine Try Out Setter 06/13/22 Sandy Martins MD [address] [facility] [place] [address] Medical Oncologist Oncology 03/29/21
--- OUTSIDE RECORDS SUMMARY | 2023-09-18 14:17 | XMS_ITS | Clinical Summary ---
Author Name Unknown Organization [facility] Address [address] [place] [address] Care Team Providers Care High School Tutor Name Role Phone Dory Salgado MD Primary Care Provider [phone] Source Comments You are receiving this document as you are listed as the primary care provider,follow-up provider, or the patient has been referred to you for consultation.This is in compliance with the Medicare and[facility] EHR Incentive Program,which states Providers who transition their patient to another setting of careor provider of care or refers their patient to another provider of care shouldprovide summary care record for each transition of care or referral. [facility] Allergies Active Allergy Reactions Criticality Noted [...] disorder, single episode 2003 Overview: LW Onset: 16Sls43 ; Depression Major NOS Resolved Problems Problem Noted Date Diagnosed Date Resolved Date Allergic state 11/08/2003 03/23/2005 Overview: LW Onset: [id number] ; Allergic Reaction Immunizations Name Administration Dates [...] MUIR ? CERVICAL CYTOLOGY REPORT Pathology # ??[id number] ?Date Obtained: ? Date Received: CYTOLOGIC IMPRESSION: Negative for intraepithelial lesion or malignancy. ? ADDITIONAL DATA LMP: CLINICAL HIST ? PREV PAP NORM 01-11-03,ACC 93052 LIQUID BASED PAP CERVICAL SPECIMEN ADEQUACY: ?? Satisfactory. ENDOCERVICAL CELLS: ??Present. Verified 03/15/04 by: ??LKR ?(electronic signature) 03/07/2004 8:33 AM CDT Dory Salgado MD LAB_1 Performing Organization Address City/[facility]/ZIP Co de Phone Number HP CONVERSION * Cholesterol, Total and HDL (01/06/2002 10:09 AM CDT) Cholesterol/HDL Ratio Screen 3.9 No normal range HP CONVERSION Cholesterol 186 125 - 199 mg/dL HP CONVERSION HDL Cholesterol 48 40 - 60 mg/dL HP CONVERSION 01/06/2002 10:0 9 AM CDT Derrick Baker MD LAB_1 Performing Organization Address [facility] Co de Phone Number HP CONVERSION from Last 3 Months or Most Recently Relevant to Health Maintenance Care Teams High School Tutor Relationship Specialty Start Date End Date Dory Salgado MD [address] [facility] [address] [place] [address] PCP - General 08/19/10
--- OUTSIDE RECORDS SUMMARY | 2023-09-18 14:18 | XMS_ITS | Encounter Summary ---
Author Name Unknown Organization [facility] Address [address] [place] [address] Care Team Providers Care Alligator Hunter Name Role Phone None Reported, Pcp Primary Care Provider Unavail able Encounter Details Date Type Department Care Team (Late st Contact Info) Description 09/15/2023 Ancillary Procedure Department of Plastic and Reconstructive Surgery Arrived Social History Tobacco Use Types Packs/Day Years Used Date Smoking Tobacco: Never Smokeless Tobacco: Never Alcohol Use Standard Drinks/Week Comments Not Currently 0 (1 standard drink = 0.6 oz pure alcohol) Quit @ age 24. Alcoholism runs in family. I didn't have it. [facility] Utilities Answer Date Recorded In the past 12 months has [facility] electric, gas, oil, or water [employer] threatened to shut off services in your [...] any clubs o r organizations such as religious groups, unions, fraternal [...] 08/13/2022 [facility] of Occupat ional Health [...] your living situation today? I have a [facility] place to live 09/09/2023 Education Answer [...] IMAGE EXAM Routine 09/15/2023 12:00 AM CDT documented in this encounter Results * Upper Extremity Lymphaticovenous Bypass-Plastic And Recon Surgery Image Exam (09/15/2023 12:00 AM CDT) Narrative IIMS - 09/15/2023 3:15 PM CDT This [...] documented as of this encounter Care Teams Alligator Hunter Relationship Specialty Start Date End Date None Reported, Pcp PCP - General Family Medicine 02/09/23 documented as of this encounter
--- OUTSIDE RECORDS SUMMARY | 2023-09-18 14:18 | XMS_ITS | Encounter Summary ---
Author Name Unknown Organization [facility] Address [address] [place] [address] Care Team Providers Care Beet End Supervisor Name Role Phone None Reported, Pcp Primary Care Provider Unavail able Encounter Details Date Type Department Care Team (Late st Contact Info) Description 07/02/2023 Orders Only Division of Gastroenterology in [place], [place] [address] [place] [phone] Carlos Serrano M.D. [address] [place] [phone] Genetic Susceptibility To Disease Social History Tobacco [...] How often do you attend chur or catholic services? More than 4 times per year 06/29/2022 Do you belong to any clubs o r organizations such as scientologist groups, unions, fraternal or athletic groups, or [...] Comments EXT TAPESTRY Routine 04/01/2022 12:00 AM REEL TENDER Genetic Susceptibility To Disease documented in this encounter Results * EXT Tapestry (04/01/2022 12:00 AM REEL TENDER) Gene Studied BRCA1,BRCA2,MLH1,MSH 2, MSH6,PMS2,EPCAM,APOB,L DLR,LDLRAP1,PCSK9 04/30/2022 12:00 AM REEL TENDER DANNY Genetic Disease Assessed Evaluation of 11 genes associated with Hereditary Breast and Ovarian Cancer, Westfall Syndrome and Familial Hypercholesterolemia. 04/30/2022 12:00 AM REEL TENDER DANNY Genetic Analysis Overall Interpretation Negative results through Tapestry do not replace diagnostic testing for patients with a personal or family history of cancer/hypercholestero lemia due to limitations with methodology. Consider a referral to a genetic counselor for diagnostic testing if warranted. 04/30/2022 12:00 AM REEL TENDER DANNY Genetic Analysis Report See Tapestry PDF [...] enriched using a custom set of reagents (Papirus+ chemistry). Targeted regions were sequenced using an Illumina DNA sequencing system. Your sequence was matched to a modified version of the hickman standard reference genome (GRCh38). Variant calling was completed using a customized version of [employer]'s Intelliden software, requiring 20x coverage for validated variant calls. Copy Number Variants (CNVs) were called using a proprietary bioinformatics pipeline that compared the coverage profile of your sample with the coverage profiles of other reference set samples. [facility] then analyzed the generated variant data for the exons and 10 bp of flanking intronic sequence (and select tagged intronic variants) of the 11 genes included in weipass from the Ziippi Database. Your sample was reviewed for single [...] assessments and medical management. 04/30/2022 12:00 AM REEL TENDER DANNY Human Reference Sequence Assembly GRCh38 04/30/2022 12:00 AM REEL TENDER DANNY Saliva (Mouth) 04/01/2022 Carlos Serrano M.D. LAB GENETI C TESTING [employer] [address] [facility], [address] [place] [address], [facility] DANNY [employer] [address] [address] [facility] [address], [address]. [place] [address] documented in this encounter Visit Diagnoses Diagnosis Genetic Susceptibility To Disease documented in this encounter Additional Health Concerns Infection Onset Date Last Indicated Resolved Time Protective Environment 09/04/2022 09/04/2022 Assessment Noted Time PHQ-9 Depression Total Score: 12 023 10:14 AM CDT documented as of this encounter Care Teams Beet End Supervisor Relationship Specialty Start Date End Date None Reported, Pcp PCP - General Family Medicine 02/09/23 documented as of this encounter
--- OUTSIDE RECORDS SUMMARY | 2023-09-18 14:18 | XMS_ITS | Encounter Summary ---
Author Name Unknown Organization [facility] Address [address] [place] [address] Care Team Providers Care Vice President Biostatistics Name Role Phone None Reported, Pcp Primary Care Provider Unavail able Reason for Referral * Outpatient (Routine) - Pending Review Specialty Diagnoses / Procedures Referred By Contac t Referred To Contact Plastic Surgery Elen Augustin APRN, C.N.P., D.N.P. [address] [place] [phone] Eber Saravia M.D. [address] [place] [phone] Referral ID Status Reason Start Date Expiration Date V isits Requested Visits Authorized [id number] Pending Review 09/15/2023 03/16/2025 1 1 * Outpatient (Routine) - Pending Review Specialty Diagnoses / Procedures Referred By Contac t Referred To Contact Diagnoses Pain Thumb Left Procedures DX Thumb Left Elen Augustin APRN, C.N.P., D.N.P. [address] [place] [phone] [facility] Referral ID Status Reason Start Date Expiration Date V isits Requested Visits Authorized [id number] Pending Review 09/15/2023 09/14/2024 1 1 * Outpatient (Routine) - Pending Review Specialty Diagnoses / Procedures Referred By Contac t Referred To Contact Orthopedic Surgery Diagnoses Pain Thumb Left Elen Augustin APRN, C.N.PYe, Jamaal.N.PYe [address] [place] [phone] [facility] Referral ID Status Reason Start Date Expiration Date V isits Requested Visits Authorized [id number] Pending Review 09/15/2023 03/16/2025 1 1 Scheduling Instructions Ortho internal referral panel order, imaging before Consult visit Reason for Visit * Outpatient (Routine) - Closed Specialty Diagnoses / Procedures Referred By Contac t Referred To Contact Plastic Surgery Diagnoses dx Eber Saravia M.D. [address] [place] [phone] [facility] Referral ID Status Reason Start Date Expiration Date Visits Re quested Visits Authorized [id number] Closed 10/16/2021 01/17/2024 1 1 Encounter Details Date Type Department Care Team (Late st Contact Info) Description 09/15/2023 1:00 PM CDT Office Visit Division of Plastic Surgery in [place], [place] [address] [place] [phone] Eber Saravia M.D. [address] [place] [phone] Pain Thumb Left (Primary Dx) Social History Tobacco Use Types Packs/Day Years Used Date Smoking Tobacco: Never Smokeless Tobacco: Never Alcohol Use Standard Drinks/Week Comments Not Currently 0 (1 standard drink = 0.6 oz pure alcohol) Quit @ age 24. Alcoholism runs in family. I didn't have it. [facility] Utilities Answer Date Recorded In the past 12 months has th e electric, gas, oil, or water company threatened to shut off services in your [...] often do you attend chur ch or jehovah's witness services? More than 4 times per year [...] Score 2 08/13/2022 [facility] - Occupational Stress Questionnaire Answer Date [...] - Inhaled Oxygen Concentration - - Weight 91.5 kg (201 lb 11.5 oz) 024 12:58 PM CDT Height 165.1 cm (5' 5) 09/15/2023 12:5 8 PM CDT Body Mass Index 33.57 09/15/2023 12:58 PM CDT documented in this encounter Plan of Treatment Scheduled Orders Name Type Priority Associated Diagnoses Orde r Schedule DX Thumb Left Imaging RAD - Routine (m ost inpatients and all outpatients) Pain Thumb Left Expected: 09/15/2023 (Approximate), Expires: 12/14/2024 Scheduled Referrals Name Type Priority Associated Diagnoses Order Schedule Orthopedic Surgery - Wrist / hand non surgical consult (clinic) Outpatient Referral Routine Pain Thumb Left Expected: 09/15/2023 (Approximate), Expires: 12/14/2024 Plastic Surgery office visit (clinic) Outpatient Referral Routine Expected: 03/16/2024 (Approximate), Expires: 12/14/2024 documented as of this encounter Visit Diagnoses Diagnosis Pain Thumb Left- Primary documented in this encounter Additional Health Concerns Infection Onset Date Last Indicated Resolved Time Protective Environment 09/04/2022 09/04/2022 Assessment Noted Time PHQ-9 Depression Total Score: 12 023 10:14 AM CDT documented as of this encounter Care Teams Vice President Biostatistics Relationship Specialty Start Date End Date None Reported, Pcp PCP - General Family Medicine 02/09/23 documented as of this encounter
--- OUTSIDE RECORDS SUMMARY | 2023-09-18 14:18 | XMS_ITS | Encounter Summary ---
Author Name Unknown Organization [facility] Address [address] [place] [address] Care Team Providers Care Field Gauger Name Role Phone None Reported, Pcp Primary Care Provider Unavail able Reason for Referral * Occupational Therapy (Routine) - Pending Review Specialty Diagnoses / Procedures Referred By Contac t Referred To Contact Diagnoses Lymphedema Post Mastectomy Procedures OT Ongoing Treatment Elen Augustin APRN, C.N.P., D.N.P. 200 [place] [phone] [facility] Referral ID Status Reason Start Date Expiration Date V isits Requested Visits Authorized [id number] Pending Review 09/15/2023 09/14/2024 6 6 Reason for Visit * Physical Therapy (Routine) - Closed Specialty Diagnoses / Procedures Referred By Contac t Referred To Contact Diagnoses Lymphedema Post Mastectomy Procedures PT or OT eval and treat (first available) Eber Saravia M.D. 200 [place] [phone] [facility] Referral ID Status Reason Start Date Expiration Date Visits Re quested Visits Authorized [id number] Closed 10/16/2021 01/17/2024 1 1 Encounter Details Date Type Department Care Team (Latest Contact Info) Description 09/15/2023 2:30 PM CDT Comprehensive Visit Department of Physical Medicine and Rehabilitation in [place], [place] [address] [phone] Eber Saravia M.D. [address] [place] [phone] Jeaneth Llamas O.T., T-KATHY [address] [place] [phone] Lymphedema Post Mastectomy (Primary Dx) Social History Tobacco Use Types Packs/Day Years Used Date Smoking Tobacco: Never Smokeless Tobacco: Never Alcohol Use Standard Drinks/Week Comments Not Currently 0 (1 standard drink = 0.6 oz pure alcohol) Quit @ age 24. Alcoholism runs in family. I didn't have it. [facility] Utilities Answer Date Recorded In the past 12 months has [employer], gas, oil, or water [employer] threatened to shut off services in your [...] week 06/29/2022 How often do you attend [facility] or shinto services? More than 4 times per year [...] Date Recorded PHQ-2 Score 2 08/13/2022 [facility] - Occupational Stress Questionnaire Answer [...] your living situation today? I have a [facility] place to live 09/09/2023 Education Answer Date [...] of this encounter Progress Notes * Jeaneth Lalmas OYeT., CLT-KATHY - 09/15/2023 2:30 PM CDT Images from the original note were not included. Occupational Therapy Lymphedema Outpatient Progress Note By [...] 9 anastomosis forearm. Onset Date: 11/12/21 Payor: [employer] BLUE SHIELD / Plan: BCBS [place] [employer] ADVANTAGE SEGIP / Product Type: HMO / SUBJECTIVE Patient/Caregiver Goals: Well managed upper extremity and breast edema Patient reports she continues to see a local lymphedema therapist periodically for MLD. Total Visit Count: 8 OBJECTIVE L-dex score as measured by ARACELI: 16 Bioimpedance spectroscopy (BIS) is used as part of a prospective surveillance model, supported by National Comprehensive Cancer Network Survivorship Guidelines to detect subclinical lymphedema. Intervention is triggered by an L- dex score of > 6.5 L-Dex units above baseline measurements. Edema: Patient with pitting left breast edema, mild peau de orange. Left upper extremity edema fairly well managed. She has a slight increase in her upper arm but the lower arm has decreased since last year Del fin moisture meter breast: R/L superior 41/54%, lateral 41/56%, inferior 43/63%, medial 41/56% Treatment: Patient reports she has consistently been wearing her sleeve and glove. Reviewed results of circumferential measures as well as bio impedance. She has not been performing a nocturnal compression program. Demonstrated to patient a tribute wrap she could use at night. At this point she is not interested in a nocturnal compression program as she states she will probably ???be too hot ???wearing device. Her bio impedance improved since last year therefore staying with her same compression program is okay. Patient reports she ordered new bras and they have elastene in fabric which she states she is allergic to. She plans to go back to mastectomy store to explore different options. I do not want patientin a compression bra but rather a bra with a non elastic cup and wide axillary band. She understands this and is currently wearing and Samantha Saphina. Home Exercise Program/Education: Mailed sign prescription for new bras to patient Assessment 53-year-old woman with left upper extremity and left breast lymphedema. She is status post LV bypass in January of 2023. She has well managed lymphedema left upper extremity via bio impedance and circumferential measures. Breast as well managed with a well-fitting bra. Plan to follow-up with patient in 6 months when she returns for other appointments. Functional Goals and Timeframe's: Goal #1: Patient will be independent and compliant with compression to manage edema. Goal #1 Status: Met Goal #2: Patient to have well managed left breast and upper extremity lymphedema Goal #2 Date: 12/14/23 Goal #2 Status: Progressing Plan TREATMENT PLAN Number of Visits: up to 1 visits Frequency: Follow-up visit only Plan: Continue with current plan Plan Comments: Follow-up in 6 months. Bio impedance and circumferential measures Treatment interventions may include: Self-care/home management Daytime Compression Program: Arm sleeve, Glove Daytime Compression Program Additional Details: 20-30 mmHg sleeve and glove, well-fitting bra with no stretch cup and wide axillary band Nighttime Compression Program: Nighttime compression bandaging Nighttime Compression Program Additional Details: Large Solera swell spot under Cira or sports bra left breast OT: Time Spent with Patient Evaluations OT Re-Eval (min) : 20 min Therapeutic Interventions Home Management Training (min): 31 min Time Tracking Total Timed Units (min): 31 min Total Treatment Time (min): 51 min Jeaneth Llamas O.T., CLT-LANA documented in [...] documented as of this encounter Care Teams Field Gauger Relationship Specialty Start Date End Date None Reported, Pcp PCP - General Family Medicine 02/09/23 documented as of this encounter
--- NOTE | 2023-09-18 14:30 | MR_ITS ---
Patient: CLIFF MUIR Facility:?[facility] Patient ID:?[id number] Site Patient ID:?[id number] Site :?[id number] Study:?MRI-Head W/ and W/O Cont 15 CC DOTAREM-09/18/2023 4:27:41 PM Ordering Physician:CATA BERKOWITZ Final Report: Indication: Headaches. Technique: Noncontrast sagittal T1, axial FLAIR, T2, diffusion, post contrast T1 weighted sequences are provided. No comparisons. 15 cc of dotarem gadolinium was administered intravenously. Findings: The ventricles, sulci and gyri are normal size, shape and contour for age. The midline structures are centrally located with no evidence of shift. There are no suspicious intra or extra-axial fluid collections. No region of restricted diffusion or suspicious regions of abnormal parenchymal enhancement. Expected flow voids in the cavernous carotids and basilar artery. Minimal scattered foci of increased T2 signal within the supratentorial white matter that are non- specific. Impression: 1. No radiographic evidence of acute intracranial abnormalities. 2. Minimal scattered supratentorial white matter change that is non-specific. Differential considerations include changes related to diabetes, hypertension, collagen vascular disease or migranous headaches. Dictated by Brian Sim MD @ 09/18/2023 5:01:22 PM Signed by:?Brian Sim MD @09/18/2023 5:01:22 PM (Electronic Signature)
== END 2023-09-18 14:16 | disposition home or self-care (01) ==
LOC: MRI 14:15
PROVIDERS: PCP Physician Assistant; Visit Provider Physician Assistant
DX: R51.9 Headache, unspecified (principal); C50.919 Malignant neoplasm of unspecified site of unspecified female breast
CPT/HCPCS: 70553; A9575

== ENCOUNTER 2023-10-07 16:15 | Outpatient (CLI) | payer BC, SELFPAY ==
--- OUTSIDE RECORDS SUMMARY | 2023-10-27 12:01 | XMS_ITS | Clinical Summary ---
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 Secondary and unspecified ma [...] Encounters Date Type Department Care Team Description 09/18/2023 Orders Only [facility] Scanner 1 scan: (1-Ord) [facility], MRI HEAD/BRAIN WO and W CONTRAST, 09/18/2023 08/17/2023 Orders Only [facility] Scanner 1 scan: (1-Ord) [facility], BILAT SCREENING MAMMOGRAM W/ COMPUTER-AIDED DETECTION and TOMOSYNTHESIS, 08/17/2023 from Last 3 Months Immunizations Name Administration Dates Next Due COVID-19 vaccine ([employer] 30mcg/0.3mL) HERNANDO MARIA 09/29/2020,09/07/2020 Influenza RIV4 (Age [...] Outcome GA Total Labor Labor/2nd/3rd Weight Sex Type Anes PTL Sofia A1 A5 Name Clin Last Filed Vital Signs Vital Sign Reading Time Taken Comments Blood Pressure 134/64 06/05/2023 10:40 AM SPORTS REPORTER Pulse 76 06/05/2023 10:40 AM SPORTS REPORTER Temperature 37 ??C (98.6 ??F) 05/19/2023 2:07 PM SPORTS REPORTER Respiratory Rate 20 11/01/2021 1:48 PM CDT Oxygen Saturation 98% 06/05/2023 10:40 AM SPORTS REPORTER Inhaled Oxygen Concentration - - Weight 90.3 kg (199 lb) 06/03/2023 4:09 PM SPORTS REPORTER Height 165.1 cm (5' 5) 06/03/2023 4:09 PM SPORTS REPORTER Body Mass Index 33.12 06/03/2023 4:09 PM SPORTS REPORTER Plan of Treatment Upcoming Encounters Date Type Department Care Team (Late st Contact Info) Description 06/10/2024 10:45 AM SPORTS REPORTER Office Visit [facility] [address] [place] [phone] Robles Alisha CarsonDO [address] [place] [address] Health Maintenance Due Date Last Done Comments HIV for age 15-65 1984 Hepatitis C screening for age 18-79 1987 COVID-19 vaccine series ( season) 2023 02/17/2022, 05/14/2021, 09/29/2020, Additional history [...] 12/02/2026 12/02/2016, 05/19, 06/11/2004 (Completed outside of [facility]), Additional history exists Lipids for age 45-75 06/10/2027 06/10/2022, 01/22/2021, 08/11/2011, Additional history exists Colonoscopy through age 75 05/20/202905/20, 05/20/2019 (Verified in Care Everywhere or Patient Record) Tdap Completed 12/02/2016 Zoster (shingles) series for age 50+ Completed 05/07/2021, 03/07/2021 Pneumococcal series for age 6-64 Aged Out No longer eligible based on patient's age to complete this topic Medical Devices Implanted Type Area Applications Architect Device Identifier Shelf Expiration Date Model / Serial / Lot [id number] Implanted:Qty: 1 on 12/10/2016 by Lorenzo Dc MD at [facility] Explanted:at [facility] (Quantity not on file) N/A: Spine [employer] 02/20/2019 [id number] / [id number] / Description:SERV FEE BIO AVS CERV 4 DEG [place] [id number] one Matrix 1cc [place] Plus Paste Dbm Implanted:Qty: 1 on 12/10/2016 by Lorenzo Dc MD at [facility] Explanted:at [facility] (Quantity not on file) N/A: Spine [employer] Spine/Ortho 07/02/2018 [id number] / [id number] / Port W/8fr 1 [employer] - [id number] Implanted:Qty: 1 on 05/21/2021 by Katherine Hawthorne MD at [facility] Right: Jugular Vein [employer] 10/15/2022 [id number] / [id number] Procedures Procedure Name Priority Date/Time Associated Diagnosis Comments SCAN-MRI INTERPRETATION 09/18/2023 12:00 AM CDT SCAN-MAMMOGRAPHY REPORT 08/17/2023 12:00 AM CDT LC LIPID PANEL AND CHOL/HDL RATIO Routine 06/10/2022 4:21 PM SPORTS REPORTER Screening for hyperlipidemia SCAN-COLONOSCOPY 05/20/2019 12:0 0 AM SPORTS REPORTER from Last 3 Months or Most Recently Relevant to Health Maintenance Results * SCAN-MRI INTERPRETATION (09/18/2023 12:00 AM CDT) Anatomical Region Laterality Modality Other Scanner OTHER * SCAN-MAMMOGRAPHY REPORT (08/17/2023 12:00 AM CDT) Anatomical Region Laterality Modality Other Scanner OTHER * LC LIPID PANEL AND CHOL/HDL RATIO (06/10/2022 4:21 PM SPORTS REPORTER) [facility] Cholesterol, Total 169 100 - 199 mg/dL 06/14/2022 12:[address] [facility] ([facility]) Triglycerides 144 0 - 149 mg/dL 06/14/2022 12:[address] [facility] ([facility]) HDL Cholesterol 67 >39 mg/dL 12:[address] [facility] ([facility]) VLDL Cholesterol Gino 25 5 - 40 mg/dL 06/14/2022 12:[address] [facility] ([facility]) LDL Chol Calc ([facility]) 77 0 - 99 mg/dL 06/14/2022 12:[address] [facility] ([facility]) T. Chol/HDL Ratio 2.5 0.0 - 4.4 ratio 06/14/2022 12:[address] [facility] ([facility]) Comment: ?T. Chol/HDL Ratio ?Men ??Women ?1/2 Avg.Risk ??3.4 ?3.3 ?Avg.Risk ??5.0 ?4.4 ? 2X Avg.Risk ??9.6 ?7.1 ? 3X Avg.Risk 23.4 ?? 11.0 Blood BLOOD SPECIMEN / Unknown Venipuncture / Unknown 06/10/2022 4:21 PM SPORTS REPORTER 06/10/2022 4:23 PM SPORTS REPORTER Narrative FOR ESOTERIC TESTING ([facility]) - 06/14/2022 12:06 AM SPORTS REPORTER Performed at: ??01 - [facility] [address] ??[id number] Senior Core Java Developer: Huey Sanchez MD, Phone: ??[phone] Linda BOLDEN SEND OUTS FOR ESOTERIC TESTING ([facility]) [facility] [address] * SCAN-COLONOSCOPY (05/20/2019 12:00 AM SPORTS REPORTER) Scanner OTHER from Last 3 Months or [...] Code Status Discussion: Not Discussed Care Teams Diesel Truck Driver Relationship Specialty [place] [address] [place] [address] PCP - General Physician Drywall Hanger 06/13/22 Sandy Martins MD [address] [place] [address] Medical Oncologist Oncology 03/29/21
--- OUTSIDE RECORDS SUMMARY | 2023-10-27 12:01 | XMS_ITS | Continuity of Care Document ---
Author Organization [facility] Address [address] [place] [address] Phone Care Team Providers Care Wardrobe Assistant Name Role Phone Gabrielle Rodriguez MD Unavailable [...] EST Phone Office/Outpatient Visit,New, Mod 2022 Office/Outpatient Visit,Est, Mod 2018 X-Ray Exam Of [...] EST Phone [facility], [address], [place], [place], [address] , [place] tel: [phone] [facility] No Information 3 Michael Anthony. [facility], [address] [place] [address], [address], [place], [address], [place]. tel: [phone] Referring Provider: Lorenzo Dc, [facility] [address] [place] [address], [address], [address]. tel:[phone] Office/Outpa tient Visit,New, Mod [facility], [address], [place], [place], [address] , [place] tel: [phone] [facility] Spinal stenosis, lumbar region with neurogenic claudication 3 Michael Anthony. [facility], [address] [place] [address], [address], [place], [address], [place]. [phone] Referring Provider: Lorenzo Dc, [facility] [address], [address], [address]. tel:[phone] Office/Outpa tient Visit,Est, Mod [facility], [address], [place], [address] , [place] tel: [phone] [facility] Encounter for follow-up examination after completed treatment for conditions other than malignant neoplasmSpinal stenosis, lumbar region with neurogenic claudication 9 Dc Ottoniel er. [facility], [address] [place] [address], [address], [place], [address] , [place]. tel: [phone] Referring Provider: Lorenzo Dc, [facility] [address], [address], [place], [address]. tel:[phone] Office/Outpa tient Visit,Est, Mod [facility], [address], [place], [address] , [place] tel: [phone] [facility] Encounter for other specified surgical aftercare 9 Dc Ottoniel er. [facility], [address], [address], [place], [address] , [place]. tel:[phone] Referring Provider: Rachelle Canela [facility] [address] [place], [address]. tel:[phone] Office/Outpa tient Visit,Est, Mod [facility], [address], [place], [address] , [place] tel: [phone] [facility] Encounter for other specified surgical aftercare 8 Dc Ottoniel er. [facility], [address] [place] [address], [address], [place], [address] , [place]. [phone] Referring Provider: Rachelle Canela [facility] [address] [place], [address]. [phone] Office/Outpa tient Visit,Est, Mod [facility], [address], [place], [address] , [place] tel:[phone] [facility] Encounter for other specified surgical aftercare 8 Dao zapata. [facility], [address], [address], [place], [place], [address] , [place]. tel: [phone] Referring Provider: Rachelle Canela [facility] [address] [place], [address]. tel:[phone] [facility], [address], [place], [place], [address] , [place] tel: [phone] [facility] Encounter for other specified surgical aftercare Dc Ottoniel zapata. [facility], [address] [place] [address], [address], [place], [place], [address] , [place]. tel: [phone] Referring Provider: Rachelle Canela [facility] [address] [place], [address]. tel:[phone] [facility], [address], [place], [place], [address] , [place] tel: [phone] [facility] No Information Dc Ottoniel zapata. [facility], [address], [address], [place], [place], [address] , [place]. tel: [phone] Referring Provider: Rachelle Canela [facility] [address] [place], [address]. tel:[phone] Office/Outpa tient Visit,Est, Mod [facility], [address], [place], [place], [address] , [place] tel: [phone] [facility] Spinal stenosis, cervical region Dc Ottoniel zapata. [facility], [address] [place] [address], [address], [place], [place], [address] , [place]. tel:[phone] Referring Provider: Rachelle Canela [facility] [address] [place], [address]. tel:[phone] Office/Outpa tient Visit,Est, Mod [facility], [address], [place], [address] , [place] tel:[phone] [facility] Spinal stenosis, cervical regionCervical disc disorder at C5-C6 level with myelopathy 7 Dao zapata. [facility] [place], [address], [address], [place], [id number] , [place]. tel:[phone] Referring Provider: Rachelle Canela [facility] [address] [place], [address]. tel:[phone] Office/Outpa tient Visit,[facility], [facility], [address], [place], [address] , [place] tel:[phone] [facility] Spinal stenosis, cervical regionCervical disc disorder at C5-C6 level with myelopathy 7 Riki Hodges. [facility], [address] [place] [address] [address], [place], [id number] , [place]. tel:[phone] Referring Provider: Rachelle Canela [facility] [address] [place], [address]. tel:[phone] Family History Family Member Type Diagnosis Age At Onset No Information Payers Payer name Insurance type Covered republican ID Authoramanda hubbard(s) [facility] [address] [facility] [id number] Social History Type Description Quantity Date Captured [...]
--- OUTSIDE RECORDS SUMMARY | 2023-10-27 12:01 | XMS_ITS | Clinical Summary ---
Author Organization [facility] Address [address] [place] [address] Care Team Providers Care Milk Route Supervisor Name Role Phone Dory Salgado MD Primary Care Provider [phone] Source Comments You are receiving this document as you are listed as the primary care provider,follow-up provider, or the patient has been referred to you for consultation.This is in compliance with the Medicare and[facility] EHR Incentive Program,which states Providers who transition their patient to another setting of careor provider of care or refers their patient to another provider of care shouldprovide summary care record for each transition of care or referral. [facility] Allergies Active Allergy Reactions Criticality Noted Date [...] disorder, single episode 2003 Overview: LW Onset: 04Fzn10 ; Depression Major NOS Resolved Problems Problem [...] ( - 2022-2 4 season) 2023 Influenza (Season Ended) 2024 HepA Aged Out No longer eligi ble [...] MUIR ? CERVICAL CYTOLOGY REPORT Pathology # ??[id number] ?Date Obtained: ? Date Received: CYTOLOGIC IMPRESSION: Negative for intraepithelial lesion or malignancy. ? ADDITIONAL DATA LMP: CLINICAL HIST ? PREV PAP NORM 01-11-03,ACC 70911 LIQUID BASED PAP CERVICAL SPECIMEN ADEQUACY: ?? Satisfactory. ENDOCERVICAL CELLS: ??Present. Verified 03/15/04 by: ??LKR ?(electronic signature) 03/07/2004 8:33 AM CDT Dory Salgado MD LAB_1 Performing Organization Address City/[facility]/ZIP Co de Phone Number HP CONVERSION * Cholesterol, Total and HDL (01/06/2002 10:09 AM CDT) Cholesterol/HDL Ratio Screen 3.9 No normal range HP CONVERSION Cholesterol 186 125 - 199 mg/dL HP CONVERSION HDL Cholesterol 48 40 - 60 mg/dL HP CONVERSION 01/06/2002 10:0 9 AM CDT Derrick Baker MD LAB_1 Performing Organization Address [facility] Co de Phone Number HP CONVERSION from Last 3 Months or Most Recently Relevant to Health Maintenance Care Teams Milk Route Supervisor Relationship Specialty Start Date End Date Dory Salgado MD [address] [facility] [facility] 5th [place] [address] PCP - General 08/19/10
== END 2023-10-07 16:16 | disposition home or self-care (01) ==
LOC: NFLDREF 10-27 11:59
PROVIDERS: PCP Physician Assistant; Referring Provider Physician Assistant; Visit Provider Physician Assistant
DX: C50.919 Malignant neoplasm of unspecified site of unspecified female breast (principal); Z79.810 Long term (current) use of selective estrogen receptor modulators (SERMs)
CPT/HCPCS: 80053; 82670; 83001; 83002

== ENCOUNTER 2023-12-03 16:05 | Outpatient (CLI) | payer BC, SELFPAY ==
--- OUTSIDE RECORDS SUMMARY | 2023-12-07 18:14 | XMS_ITS | Clinical Summary ---
Author Organization [facility] Address [place], [place] [address] Care Team Providers Care Dairy Inspector Name Role Phone Sandy Martins MD Unavailable [phone] Linda Velez Primary Care Provider [phone] Allergies Active Allergy Reactions Criticality Noted Date [...] 400 mg capsule every day 02/18/2022 Active L.acidoph-L.rhamn-B. bif-B.long (Probiotic Acidophilus Biobeads) 12.9 mg (2 billion cell) TbEC once daily. 02/18/2022 Activ e cholecalciferol (VITAMIN D3) 2,000 unit capsule Take 50 mcg by mouth once daily. 11/25/2021 Active loperamide (IMODIUM) 2 mg capsule Take 2 mg by mouth one time if needed. Active PreviDent 5000 Booster Plus 1.1 % pste APPLY A SMALL AMOUNT TO TEETH EVERY NIGHT BRUSH ONTO TEETH BEFORE BEDTIME, THEN EXPECTORATE. DO NOT EAT OR DRINK 30 MINUTES AFTER 02/23/2023 Active tiZANidine (ZANAFLEX) 4 mg tabletIndications:Ac [place] midline low back pain without sciatica Take 1 Tablet (4 mg) by mouth every 8 hours if needed for Muscle Spasm. 30 Tablet 1 05/19/2023 Active DULoxetine (CYMBALTA) 30 mg Delayed-release capsuleIndications:P ain Take 1 Capsule (30 mg) by mouth once daily. 30 Capsule 6 06/05/2023 Active levothyroxine (SYNTHROID) 88 mcg tabletIndications:Co ngenital 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 Take 1 Tablet (88 mcg) by mouth once daily. 90 Tablet 1 12/07/2023 Active ondansetron (ZOFRAN ODT) 4 mg disintegrating tablet DISSOLVE ONE TABLET ON THE TONGUE EVERY EIGHT HOURS 11/12/2022 4 Discontinue d(*Patient states no longer taking) predniSONE (DELTASONE) 20 mg tabletIndications:Ac [place] midline low back pain without sciatica Take 3 tablets by mouth for 3 days then 2 tablets by mouth for 3 days then 1 tablet by mouth for 3 days then 1/2 tablet by mouth for 3 days. Take with food. 20 Tablet 05/19/2023 4 Discontinue d(*Med complete/Re gimen complete/Le ector of care change) levothyroxine (SYNTHROID) 75 mcg tabletIndications:Hy pothyroidism (acquired) Take 1 Tablet (75 mcg) by mouth once daily. 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 coli UTI 12/26/2016 04/05/2021 Acute tetraplegia 12/10/2016 01/23/2021 Vitamin D deficiency 09/22/2011 021 Overview: VITAMIN D TOTAL (ng/mL) Date Value 08/11/2011 21.6* 08/05/2010 20.3* 10/22/2009 28.0* Ergocalciferol 50,000 IU 3x/wk for 4 wks started 09/22/2011 Instructed to then switch to D3 4,000 IU/day Re-check Vit D Level in ~3-6 months Itching 09/22/2011 11/07/2022 Encounters Date Type Department Care Team Description 12/07/2023 2:35 PM CDT Office Visit [facility] [address] [place] [address] Linda Velez PA Thyroid Problem (Patient would like to go over results ); Derm Problem (Spots on arm no pain or itchy) 12/07/2023 Travel 09/18/2023 Orders Only [facility] Scanner 1 scan: (1-Ord) [facility], MRI HEAD/BRAIN WO and W CONTRAST, 09/18/2023 from Last 3 Months Immunizations Name Administration Dates Next Due COVID-19 vaccine (c-LEctaBio NTech 30mcg/0.3mL) HERNANDO MARIA 09/29/2020,09/07/2020 Influenza RIV4 (Age [...] of Communication with Friends and Fami ly 0 12/07/2023 Financial Resource Strain Answer Date R ecorded Difficulty of Paying Living Expenses 3 12/07/2023 Difficulty of Paying Living Expenses Not on file 12/07/2023 Food Insecurity Answer Date Recorded Worried About Running Out of Food in the Last Ye ar 1 12/07/2023 Transportation Needs Answer Date Record ed Lack of Transportation (Medical) 1 12/07/2023 Housing Stability Answer Date Recorded Unable to Pay for Housing in the Last Year 1 12/07/2023 Sex and Gender Information Value Date Recorded [...] Sign Reading Time Taken Comments Blood Pressure 115/78 12/07/2023 2:30 PM CDT Pulse 87 12/07/2023 2:30 PM CDT Temperature 37 ??C (98.6 ??F) 05/19/2023 2:07 PM ELEVATOR OPERATOR FREIGHT Respiratory Rate 20 11/01/2021 1:48 PM CDT Oxygen Saturation 98% 06/05/2023 10: 40 AM ELEVATOR OPERATOR FREIGHT Inhaled Oxygen Concentration - - Weight 92.9 kg (204 lb 12.8 oz) 12/07/2023 2:30 PM CDT Height 165.1 cm (5' 5) 12/07/2023 2:30 PM CDT Body Mass Index 34.08 12/07/2023 2:30 PM CDT Plan of Treatment Upcoming Encounters Date Type Department Care Team (Late st Contact Info) Description 06/10/2024 10:45 AM ELEVATOR OPERATOR FREIGHT Office Visit [facility] [address] [place] [address] Alisha Arboleda DO [address] [place] [address] Health Maintenance Due Date Last Done Comments Pneumococcal series for age 6-64 (1 of 2 - PCV) 1975 HIV for age 15-65 1984 Hepatitis C screening for ag e 18-79 1987 COVID-19 vaccine series (2022- season) 2023 02/17/2022, 05/14/2021, 09/29/2020, Additional history exists Influenza for age 50-64 01/17/2024 05/05/20, 04/06/2020, 04/09/2018, Additional history exists Depression screening for age 12+ 06/05/2024 06/05/2023, 06/03/2023, 06/13/2022, Additional history exists Mammogram for age 45-75 08/16/2024 08/17/19 24, 08/14/2022, 11/09/2021 (Verified in Care Everywhere or Patient Record), Additional history exists BMI (ht and wt on same day) for age 18+ 12/06/2024 12/07/2023, 06/03/2023, 05/19/2023, Additional history exists Tetanus booster 12/02/2026 12/02/2016, 05/19, 06/11/2004 (Completed outside of [facility]), Additional history exists Lipids for age 45-75 06/10/2027 06/10/2022, 01/22/2021, 08/11/2011, Additional history exists Colonoscopy through age 75 05/20/202905/20, 05/20/2019 (Verified in Care Everywhere or Patient Record) Tdap Completed 12/02/2016 Zoster (shingles) series for age 50+ Completed 05/07/2021, 03/07/2021 Medical Devices Implanted Type Area Director Of Event Sales Device Identifier Shelf Expiration Date Model / Serial / Lot [id number] Implanted:Qty: 1 on 12/10/2016 by Lorenzo Dc MD at [facility] Explanted:at [facility] (Quantity not on file) N/A: Spine [employer] 02/20/2019 [id number] / [id number] / Description:Circlezon AVS CERV 4 DEG [place] [id number] one Matrix 1cc [place] Plus Paste Dbm Implanted:Qty: 1 on 12/10/2016 by Lorenzo Dc MD at [facility] Explanted:at [facility] (Quantity not on file) N/A: Spine [employer] Spine[facility]Or[facility] 07/02/2018 [id number] / [id number] / Port W/8fr 1 [employer] - [id number] Implanted:Qty: 1 on 05/21/2021 by Katherine Hawthorne MD at [facility] Right: Jugular Vein [employer] 10/15/2022 [id number] / / [id number] Procedures Procedure Name Priority Date/Time Associated Diagnosis Comments SCAN-MRI INTERPRETATION 09/18/2023 12:00 AM CDT SCAN-MAMMOGRAPHY REPORT 08/17/2023 12:00 AM CDT LC LIPID PANEL AND CHOL/HDL RATIO Routine 06/10/2022 4:21 PM ELEVATOR OPERATOR FREIGHT Screening for hyperlipidemia SCAN-COLONOSCOPY 05/20/2019 12:0 0 AM ELEVATOR OPERATOR FREIGHT from Last 3 Months or Most Recently Relevant to Health Maintenance Results * SCAN-MRI INTERPRETATION (09/18/2023 12:00 AM CDT) Anatomical Region Laterality Modality Other Scanner OTHER * SCAN-MAMMOGRAPHY REPORT (08/17/2023 12:00 AM CDT) Anatomical Region Laterality Modality Other Scanner OTHER * LC LIPID PANEL AND CHOL/HDL RATIO (06/10/2022 4:21 PM ELEVATOR OPERATOR FREIGHT) Pathologist [facility] Cholesterol, Total 169 100 - 199 mg/dL 06/14/2022 12:06 AM [facility] Triglycerides 144 0 - 149 mg/dL 06/14/2022 12:06 AM [facility] HDL Cholesterol 67 >39 mg/dL 12:06 AM [facility] VLDL Cholesterol Gino 25 5 - 40 mg/dL 06/14/2022 12:06 AM [facility] LDL Chol Calc (NIH) 77 0 - 99 mg/dL 06/14/2022 12:06 AM [facility] T. Chol/HDL Ratio 2.5 0.0 - 4.4 ratio 06/14/2022 12:06 AM [facility] Comment: ?T. Chol/HDL Ratio ?Men ??Women ?1/2 Avg.Risk ??3.4 ?3.3 ?Avg.Risk ??5.0 ?4.4 ? 2X Avg.Risk ??9.6 ?7.1 ? 3X Avg.Risk 23.4 ?? 11.0 Blood BLOOD SPECIMEN / Unknown Venipuncture / Unknown 06/10/2022 4:21 PM ELEVATOR OPERATOR FREIGHT 06/10/2022 4:23 PM ELEVATOR OPERATOR FREIGHT Narrative [facility] - 06/14/2022 12:06 AM ELEVATOR OPERATOR FREIGHT Performed at: ??01 - [facility] [place] [address] ??[id number] Environmental Health Aide: Huey Sanchez MD, Phone: ??[phone] Linda BOLDEN [facility] [address] [place] [address] * SCAN-COLONOSCOPY (05/20/2019 12:00 AM ELEVATOR OPERATOR FREIGHT) Scanner OTHER from Last 3 Months or [...] Code Status Discussion: Not Discussed Care Teams Dairy Inspector Relationship Specialty [place] [address] [place] [address] PCP - General Physician Order Taker 06/13/22 Sandy Martins MD [address] [place] [address] Medical Oncologist Oncology 03/29/21
--- OUTSIDE RECORDS SUMMARY | 2023-12-07 18:14 | XMS_ITS | Continuity of Care Document ---
Author Organization [facility] Address [address] [place] [address] Phone Care Team Providers Care Millinery Teacher Name Role Phone Gabrielle Rodriguez MD Unavailable [...] EST Phone [facility], [address], [place], [place], [id number] , [place] tel: [phone] [facility] No Information 3 Michael Anthony. [facility] [place], [address] [place] [address], [address], [place], [address], [place]. tel: [phone] Referring Provider: Lorenzo Dc, [facility] [address] [place] [address], [address], [place], [address]. tel:[phone] Office/Outpa tient Visit,New, Mod [facility], [address], [place], [place], [address] , [place] tel: [phone] [facility] Spinal stenosis, lumbar region with neurogenic claudication 3 Michale Anthony. [facility], [address] [place] [address], [address], [place], [address], [place]. [phone] Referring Provider: Lorenzo Dc, [facility] [address], [address], [place], [address]. tel:[phone] Office/Outpa tient Visit,Est, Mod [facility], [address], [place], [address] , [place] tel: [phone] [facility] Encounter for follow-up examination after completed treatment for conditions other than malignant neoplasmSpinal stenosis, lumbar region with neurogenic claudication 9 Dc Ottoniel er. [facility] [place], [address] [place] [address], [address], [place], [address] , [place]. tel: [phone] Referring Provider: Lorenzo Dc, [facility] [address], [address], [place], [address]. tel:[phone] Office/Outpa tient Visit,Est, Mod [facility], [address], [place], [address] , [place] tel: [phone] [facility] Encounter for other specified surgical aftercare 9 Dc Ottoniel er. [facility] [place], [address], [address], [place], [place], [address] , [place]. tel:[phone] Referring Provider: Rachelle Canela [facility] [address] [place], [address]. tel:[phone] Office/Outpa tient Visit,Est, Mod [facility], [address], [place], [address] , [place] tel:[phone] [facility] Encounter for other specified surgical aftercare 8 Dc Ottoniel er. [facility], [address] [place] [address], [address], [place], [address] , [place]. [phone] Referring Provider: Rachelle Canela [facility] [address] [place], [address]. [phone] Office/Outpa tient Visit,Est, Mod [facility], [address], [place], [address] , [place] tel:[phone] [facility] Encounter for other specified surgical aftercare 8 Dao zapata. [facility], [address], [address], [place], [place], [address] , [place]. tel: [phone] Referring Provider: Rachelle Canela [facility] [address] [place], [address]. tel:[phone] [facility], [address], [place], [place], [address] , [place] tel: [phone] [facility] Encounter for other specified surgical aftercare Dc Ottoniel zapata. [facility], [address] [place] [address], [address], [place], [place], [address] , [place]. tel: [phone] Referring Provider: Rachelle Canela [facility] [address] [place], [address]. tel:[phone] [facility], [address], [place], [place], [address] , [place] tel: [phone] [facility] No Information Dc Ottoniel zapata. [facility], [address], [address], [place], [place], [address] , [place]. tel: [phone] Referring Provider: Rachelle Canela [facility] [address] [place], [address]. tel:[phone] Office/Outpa tient Visit,Est, Mod [facility], [address], [place], [place], [address] , [place] tel: [phone] [facility] Spinal stenosis, cervical region Dc Ottoniel zapata. [facility], [address] [place] [address], [address], [place], [place], [address] , [place]. tel:[phone] Referring Provider: Rachelle Canela [facility] [address] [place], [address]. tel:[phone] Office/Outpa tient Visit,Est, Mod [facility], [address], [place], [address] , [place] tel:[phone] [facility] Spinal stenosis, cervical regionCervical disc disorder at C5-C6 level with myelopathy 7 Dao zapata. [facility], [address], [address], [place], [address] , [place]. tel:[phone] Referring Provider: Rachelle Canela [facility] [address] [place], [address]. tel:[phone] Office/Outpa tient Visit,[facility], [facility], [address], [place], [address] , [place] tel:[phone] [facility] Spinal stenosis, cervical regionCervical disc disorder at C5-C6 level with myelopathy 7 Riki Hodges. [facility], [address] [place] [address] [address], [place], [id number] , [place]. tel:[phone] Referring Provider: Rachelle Canela [facility] [address] [place], [address]. tel:[phone] Family History Family Member Type Diagnosis Age At Onset No Information Payers Payer name Insurance type Covered democrat ID Authoramanda hubbard(s) [facility] [id number] [facility] [id number] Social History Type Description Quantity Date Captured [...]
--- OUTSIDE RECORDS SUMMARY | 2023-12-07 18:14 | XMS_ITS | Clinical Summary ---
Author Organization [facility] Address [address] [place] [address] Care Team Providers Care French Lecturer Name Role Phone Dory Salgado MD Primary Care Provider [phone] Source Comments You are receiving this document as you are listed as the primary care provider,follow-up provider, or the patient has been referred to you for consultation.This is in compliance with the Medicare and[facility] EHR Incentive Program,which states Providers who transition their patient to another setting of careor provider of care or refers their patient to another provider of care shouldprovide summary care record for each transition of care or referral. [facility] Allergies Active Allergy Reactions Criticality Noted Date [...] disorder, single episode 2003 Overview: LW Onset: [id number] ; Depression Major NOS Resolved Problems Problem [...] - 2022-2 4 season) 2023 Influenza (#1) 2024 HepA Aged Out No longer eligi [...] MUIR ? CERVICAL CYTOLOGY REPORT Pathology # ??[id number] ?Date Obtained: ? Date Received: CYTOLOGIC IMPRESSION: Negative for intraepithelial lesion or malignancy. ? ADDITIONAL DATA LMP: CLINICAL HIST ? PREV PAP NORM 01-11-03,ACC [id number] LIQUID BASED PAP CERVICAL SPECIMEN ADEQUACY: ?? Satisfactory. ENDOCERVICAL CELLS: ??Present. Verified 03/15/04 by: ??LKR ?(electronic signature) 03/07/2004 8:33 AM CDT Dory Salgado MD LAB_1 Performing Organization Address City/[facility]/ZIP Co de Phone Number HP CONVERSION * Cholesterol, Total and HDL (01/06/2002 10:09 AM CDT) Cholesterol/HDL Ratio Screen 3.9 No normal range HP CONVERSION Cholesterol 186 125 - 199 mg/dL HP CONVERSION HDL Cholesterol 48 40 - 60 mg/dL HP CONVERSION 01/06/2002 10:0 9 AM CDT Derrick Baker MD LAB_1 Performing Organization Address [facility] [[email or web address]] Co de Phone Number HP CONVERSION from Last 3 Months or Most Recently Relevant to Health Maintenance Care Teams French Lecturer Relationship Specialty Start Date End Date Dory Salgado MD [address] [facility] [address] [place] [address] PCP - General 08/19/10
== END 2023-12-03 16:06 | disposition home or self-care (01) ==
LOC: NFLDREF 12-07 18:12
PROVIDERS: PCP Physician Assistant; Referring Provider Physician Assistant; Visit Provider Physician Assistant
DX: C50.912 Malignant neoplasm of unspecified site of left female breast (principal)
CPT/HCPCS: 80053; 82670; 83001; 83002

== ENCOUNTER 2023-12-29 16:15 | Outpatient (RCR) | payer BC, SELFPAY | END 2024-04-27 23:59 | disposition home or self-care (01) | PROVIDERS: PCP Physician Assistant; Visit Provider Student in an Organized Health Care Education/Training Program | DX: G82.54 Quadriplegia, C5-C7 incomplete (principal); M54.50 Low back pain, unspecified; R26.1 Paralytic gait; R26.0 Ataxic gait; Z51.89 Encounter for other specified aftercare | CPT/HCPCS: 97110; 97112; 97116; 97140; 97162; 97530 ==

== ENCOUNTER 2023-12-31 08:30 | Outpatient (RCR) | payer BC, SELFPAY ==
[2023-07-16 08:24] LABS: Basophils Absolute Auto 0.06 K/uL (0.00-0.30); Basophils Percent Auto 1.3 % (0.0-3.0); Eosinophils Absolute Auto 0.04 K/uL (0.00-0.50); Eosinophils Percent Auto 0.9 % (0.0-7.0); Hematocrit 36.8 % (33.0-51.0); Hemoglobin* 12.4 gm/dL (12.0-16.0); Immature Granulocytes Abs Auto 0.01 K/uL (0.00-0.30); Immature Granulocytes Pct Auto 0.2 %; Lymphocytes Percent Auto 19.4 % (20-44); Mean Corpuscular HGB Conc 34 gm/dL (32-36); Mean Corpuscular Hemoglobin 34 pg (26-34); Mean Corpuscular Volume 100 fL (80-100); Monocytes Percent Auto 7.6 % (0.0-11.0); Neutrophils Absolute Auto 3.23 K/uL (1.7-7.0); Neutrophils Percent Auto 70.6 % (42.0-72.0); Platelet Count* 216 K/uL (140-440); RDW Coefficient of Variation % 13.2 % (11.5-15.5); Red Blood Count 3.67 m/uL (4.00-5.20); White Blood Count* 4.58 K/uL (4.50-11.00)
[2023-07-16 08:25] LABS: Slide Review Reflex No
[2023-07-16 08:37] LABS: Albumin* 3.8 g/dL (3.3-5.0); Chloride* 106 mmol/L (96-114)
[2023-07-16 08:38] LABS: Potassium* 3.9 mmol/L (3.6-5.1); Sodium* 138 mmol/L (135-149)
[2023-07-16 08:40] LABS: Anion Gap 8 mEq/L (7-15); Aspartate Amino Transferase* 22 U/L (12-35); Bilirubin Total* 0.3 mg/dL (0.1-1.5); Blood Urea Nitrogen* 15 mg/dL (7-30); Carbon Dioxide* 24 mmol/L (20-32); Creatinine* 0.9 mg/dL (0.5-1.5); Estimated Glomerular Filt Rate 76 ml/min; Total Protein* 6.6 g/dL (6.0-8.3)
[2023-07-16 08:41] LABS: Alanine Aminotransferase* 17 U/L (4-35); Alkaline Phosphatase* 42 U/L (40-150); Calcium* 9.3 mg/dL (8.4-10.6); Glucose* 95 mg/dL (60-115)
[2023-07-17 21:20] LABS: Estradiol Premenol Female 47 pg/mL
[2023-07-18 05:31] LABS: Follicle Stimulating Hormone 30.8 IU/L; Luteinizing Hormone 19.5 IU/L
--- NOTE | 2023-08-14 09:55 | ONC.NURNOTE ---
Call to patient with lab results. Patient informed that her labs are within parameters to continue Verzenio 150 mg BID alternating with 150 mg daily. Patient states she is overall doing well. She reports having diarrhea once per week which is well managed and unchanged. She is dealing with an itchy rash to her chest that has come and gone over the past several months. She wonders if it is a lingering side effect from radiation. I encouraged her to keep it moisturized and monitor closely. She should be evaluated if symptoms worsen, do not improve or she develops fever/chills. Patient verbalizes understanding.
--- NOTE | 2023-09-07 13:14 | URNOTE ---
Request received for authorization for Zoledronic Acid (ZOMETA) (J3489).?Prior authorization is not required?for start date 09/06/2022 to 09/06/2024, Ref#[id number] per [facility].
[2023-09-10 08:10] LABS: Basophils Absolute Auto 0.05 K/uL (0.00-0.30); Basophils Percent Auto 1.1 % (0.0-3.0); Eosinophils Absolute Auto 0.05 K/uL (0.00-0.50); Eosinophils Percent Auto 1.1 % (0.0-7.0); Hematocrit 37.8 % (33.0-51.0); Hemoglobin* 12.5 gm/dL (12.0-16.0); Immature Granulocytes Abs Auto 0.01 K/uL (0.00-0.30); Immature Granulocytes Pct Auto 0.2 %; Lymphocytes Percent Auto 19.8 % (20-44); Mean Corpuscular HGB Conc 33 gm/dL (32-36); Mean Corpuscular Hemoglobin 34 pg (26-34); Mean Corpuscular Volume 102 fL (80-100); Monocytes Percent Auto 8.6 % (0.0-11.0); Neutrophils Absolute Auto 3.28 K/uL (1.7-7.0); Neutrophils Percent Auto 69.2 % (42.0-72.0); Platelet Count* 224 K/uL (140-440); RDW Coefficient of Variation % 12.8 % (11.5-15.5); Red Blood Count 3.71 m/uL (4.00-5.20); Slide Review Reflex No; White Blood Count* 4.74 K/uL (4.50-11.00)
[2023-09-10 08:29] LABS: Albumin* 3.8 g/dL (3.3-5.0); Chloride* 107 mmol/L (96-114)
[2023-09-10 08:30] LABS: Potassium* 3.9 mmol/L (3.6-5.1); Sodium* 139 mmol/L (135-149)
[2023-09-10 08:32] LABS: Alkaline Phosphatase* 47 U/L (40-150); Anion Gap 8 mEq/L (7-15); Aspartate Amino Transferase* 25 U/L (12-35); Bilirubin Total* 0.3 mg/dL (0.1-1.5); Blood Urea Nitrogen* 18 mg/dL (7-30); Carbon Dioxide* 24 mmol/L (20-32); Creatinine* 0.8 mg/dL (0.5-1.5); Est. Creatinine Clearance* 72.34; Estimated Glomerular Filt Rate 88 ml/min; Total Protein* 6.8 g/dL (6.0-8.3)
[2023-09-10 08:33] LABS: Alanine Aminotransferase* 20 U/L (4-35); Calcium* 9.1 mg/dL (8.4-10.6); Glucose* 101 mg/dL (60-115)
[2023-09-10] MEDS: ZOLEDRONIC ACID 3 MG in 0.9 % SODIUM CHLORIDE 100 ml 100 ML 220 MG IVPB (09:53)
[2023-09-10] MEDS: 0.9 % SODIUM CHLORIDE 250 ml IV (10:55)
[2023-09-10] MEDS: SODIUM CHLORIDE 0.9 % (FLUSH) 10 ML SYRINGE IVF (10:55)
[2023-11-05 07:51] LABS: Basophils Absolute Auto 0.04 K/uL (0.00-0.30); Basophils Percent Auto 0.8 % (0.0-3.0); Eosinophils Absolute Auto 0.06 K/uL (0.00-0.50); Eosinophils Percent Auto 1.2 % (0.0-7.0); Hematocrit 37.5 % (33.0-51.0); Hemoglobin* 12.5 gm/dL (12.0-16.0); Immature Granulocytes Abs Auto 0.02 K/uL (0.00-0.30); Immature Granulocytes Pct Auto 0.4 %; Lymphocytes Absolute Auto 1.08 K/uL (0.90-2.90); Lymphocytes Percent Auto 21.9 % (20-44); Mean Corpuscular HGB Conc 33 gm/dL (32-36); Mean Corpuscular Hemoglobin 34 pg (26-34); Mean Corpuscular Volume 102 fL (80-100); Monocytes Percent Auto 9.1 % (0.0-11.0); Neutrophils Absolute Auto 3.29 K/uL (1.7-7.0); Neutrophils Percent Auto 66.6 % (42.0-72.0); Platelet Count* 211 K/uL (140-440); RDW Coefficient of Variation % 12.8 % (11.5-15.5); Red Blood Count 3.69 m/uL (4.00-5.20); White Blood Count* 4.94 K/uL (4.50-11.00)
[2023-11-05 07:53] LABS: Slide Review Reflex No
[2023-11-05 08:03] LABS: Albumin* 3.9 g/dL (3.3-5.0); Chloride* 108 mmol/L (96-114); Sodium* 138 mmol/L (135-149)
[2023-11-05 08:04] LABS: Potassium* 4.2 mmol/L (3.6-5.1)
[2023-11-05 08:06] LABS: Alanine Aminotransferase* 25 U/L (4-35); Alkaline Phosphatase* 50 U/L (40-150); Anion Gap 5 mEq/L (7-15); Aspartate Amino Transferase* 27 U/L (12-35); Bilirubin Total* 0.4 mg/dL (0.1-1.5); Blood Urea Nitrogen* 18 mg/dL (7-30); Carbon Dioxide* 25 mmol/L (20-32); Creatinine* 0.9 mg/dL (0.5-1.5); Estimated Glomerular Filt Rate 76 ml/min; Glucose* 97 mg/dL (60-115); Total Protein* 6.7 g/dL (6.0-8.3)
[2023-11-05 08:07] LABS: Calcium* 8.8 mg/dL (8.4-10.6)
[2023-11-05 10:40] LABS: Vitamin B12* 259 pg/mL (243-894)
[2023-11-06 08:41] LABS: Folate, Serum 20.2 ng/mL (>=5.9)
[2023-11-07 01:31] LABS: Vitamin D, 1,25-Dihydroxy 39.9 pg/mL (19.9-79.3)
--- NOTE | 2023-12-04 11:13 | ONC.NURNOTE ---
Call to patient to inform her that her labs are all within parameters to continue Verzenio. Patient denies questions or concerns.
[2023-12-31 08:50] LABS: Basophils Absolute Auto 0.04 K/uL (0.00-0.30); Basophils Percent Auto 0.9 % (0.0-3.0); Eosinophils Absolute Auto 0.06 K/uL (0.00-0.50); Eosinophils Percent Auto 1.3 % (0.0-7.0); Hematocrit 36.9 % (33.0-51.0); Immature Granulocytes Abs Auto 0.02 K/uL (0.00-0.30); Immature Granulocytes Pct Auto 0.4 %; Lymphocytes Percent Auto 21.9 % (20-44); Mean Corpuscular HGB Conc 33 gm/dL (32-36); Mean Corpuscular Hemoglobin 33 pg (26-34); Mean Corpuscular Volume 102 fL (80-100); Monocytes Percent Auto 7.2 % (0.0-11.0); Neutrophils Absolute Auto 3.12 K/uL (1.7-7.0); Neutrophils Percent Auto 68.3 % (42.0-72.0); Platelet Count* 186 K/uL (140-440); RDW Coefficient of Variation % 13.3 % (11.5-15.5); Red Blood Count 3.61 m/uL (4.00-5.20); White Blood Count* 4.57 K/uL (4.50-11.00)
[2023-12-31 08:55] LABS: Slide Review Reflex No
[2023-12-31 09:06] LABS: Albumin* 3.8 g/dL (3.3-5.0)
[2023-12-31 09:08] LABS: Bilirubin Total* 0.4 mg/dL (0.1-1.5)
[2023-12-31 09:09] LABS: Aspartate Amino Transferase* 30 U/L (12-35); Glucose* 132 mg/dL (60-115)
[2023-12-31 09:26] LABS: Carbon Dioxide* 24 mmol/L (20-32)
[2023-12-31 09:33] LABS: Anion Gap 5 mEq/L (7-15); Chloride* 110 mmol/L (96-114); Potassium* 4.2 mmol/L (3.6-5.1); Sodium* 139 mmol/L (135-149)
[2023-12-31 09:35] LABS: Creatinine* 0.9 mg/dL (0.5-1.5); Estimated Glomerular Filt Rate 76 ml/min
[2023-12-31 09:36] LABS: Alanine Aminotransferase* 26 U/L (4-35); Alkaline Phosphatase* 47 U/L (40-150); Blood Urea Nitrogen* 17 mg/dL (7-30); Total Protein* 6.5 g/dL (6.0-8.3)
[2023-12-31 09:37] LABS: Calcium* 9.1 mg/dL (8.4-10.6)
== END 2024-01-12 23:59 | disposition home or self-care (01) ==
LOC: CCIC 08:30
PROVIDERS: Clinical Nurse Specialist; PCP Physician Assistant; Referring Provider Physician Assistant; Visit Provider Physician Assistant
DX: C50.912 Malignant neoplasm of unspecified site of left female breast (principal); Z17.0 Estrogen receptor positive status [ER+]; Z79.810 Long term (current) use of selective estrogen receptor modulators (SERMs); I97.2 Postmastectomy lymphedema syndrome; J32.9 Chronic sinusitis, unspecified; G62.0 Drug-induced polyneuropathy; T45.1X5A Adverse effect of antineoplastic and immunosuppressive drugs, initial encounter; R53.83 Other fatigue
CPT/HCPCS: 36415; 80053; 82306; 82607; 82652; 82670; 82746; 83001; 83002; 84443; 85025; 96374; 99214; 99215; G0463; J3489; J7050

== ENCOUNTER 2024-07-05 16:30 | Outpatient (RCR) | payer BC, SELFPAY | END 2024-11-02 23:59 | disposition home or self-care (01) | PROVIDERS: PCP Physician Assistant; Visit Provider Orthopaedic Surgery | DX: S93.401D Sprain of unspecified ligament of right ankle, subsequent encounter (principal); M67.01 Short Achilles tendon (acquired), right ankle; M25.571 Pain in right ankle and joints of right foot; G82.54 Quadriplegia, C5-C7 incomplete; G62.0 Drug-induced polyneuropathy; T45.1X5D Adverse effect of antineoplastic and immunosuppressive drugs, subsequent encounter; R29.6 Repeated falls; Z51.89 Encounter for other specified aftercare | CPT/HCPCS: 97110; 97112; 97116; 97140; 97161 ==

== ENCOUNTER 2024-07-25 15:00 | Outpatient (RCR) | payer BC, SELFPAY ==
[2024-01-27 09:29] LABS: Basophils Absolute Auto 0.04 K/uL (0.00-0.30); Basophils Percent Auto 0.8 % (0.0-3.0); Eosinophils Absolute Auto 0.09 K/uL (0.00-0.50); Eosinophils Percent Auto 1.8 % (0.0-7.0); Hemoglobin* 12.6 gm/dL (12.0-16.0); Immature Granulocytes Abs Auto 0.02 K/uL (0.00-0.30); Immature Granulocytes Pct Auto 0.4 %; Lymphocytes Percent Auto 16.1 % (20-44); Mean Corpuscular HGB Conc 33 gm/dL (32-36); Mean Corpuscular Hemoglobin 34 pg (26-34); Mean Corpuscular Volume 102 fL (80-100); Monocytes Percent Auto 8.7 % (0.0-11.0); Neutrophils Percent Auto 72.2 % (42.0-72.0); Platelet Count* 188 K/uL (140-440); RDW Coefficient of Variation % 13.1 % (11.5-15.5); Red Blood Count* 3.74 m/uL (4.00-5.20); White Blood Count* 4.96 K/uL (4.50-11.00)
[2024-01-27 09:31] LABS: Albumin* 3.9 g/dL (3.3-5.0); Chloride* 107 mmol/L (96-114)
[2024-01-27 09:32] LABS: Potassium* 4.1 mmol/L (3.6-5.1); Slide Review Reflex No; Sodium* 138 mmol/L (135-149)
[2024-01-27 09:34] LABS: Alkaline Phosphatase* 49 U/L (40-150); Anion Gap 7 mEq/L (7-15); Aspartate Amino Transferase* 29 U/L (12-35); Bilirubin Total* 0.4 mg/dL (0.1-1.5); Blood Urea Nitrogen* 12 mg/dL (7-30); Carbon Dioxide* 24 mmol/L (20-32); Creatinine* 0.9 mg/dL (0.5-1.5); Est. Creatinine Clearance* 59.11; Estimated Glomerular Filt Rate 76 ml/min; Total Protein* 6.6 g/dL (6.0-8.3)
[2024-01-27 09:35] LABS: Alanine Aminotransferase* 25 U/L (4-35); Calcium* 9.2 mg/dL (8.4-10.6); Glucose* 90 mg/dL (60-115)
--- NOTE | 2024-02-01 16:31 | ONC.NURNOTE ---
Spoke with patient about [facility] study plan coordination. Patient will see [facility] 04/19. She needs to have a minimum of a 21 day wash out from Verzenio and will need to have Zoladex at least 4 weeks prior to this appointment. Patient reports her last cycle of Verzenio will be completed 03/10. Patient requests we keep current follow up appointment as previously scheduled, 02/22.
[2024-02-23 08:45] LABS: Basophils Absolute Auto 0.05 K/uL (0.00-0.30); Basophils Percent Auto 0.9 % (0.0-3.0); Eosinophils Percent Auto 1.8 % (0.0-7.0); Hematocrit* 37.4 % (33.0-51.0); Hemoglobin* 12.4 gm/dL (12.0-16.0); Immature Granulocytes Abs Auto 0.02 K/uL (0.00-0.30); Immature Granulocytes Pct Auto 0.4 %; Lymphocytes Percent Auto 17.9 % (20-44); Mean Corpuscular HGB Conc 33 gm/dL (32-36); Mean Corpuscular Hemoglobin 34 pg (26-34); Mean Corpuscular Volume 101 fL (80-100); Monocytes Percent Auto 8.5 % (0.0-11.0); Neutrophils Absolute Auto 3.83 K/uL (1.7-7.0); Neutrophils Percent Auto 70.5 % (42.0-72.0); Platelet Count* 182 K/uL (140-440); RDW Coefficient of Variation % 12.9 % (11.5-15.5); White Blood Count* 5.43 K/uL (4.50-11.00)
[2024-02-23 08:51] LABS: Slide Review Reflex No
[2024-02-23 08:55] LABS: Albumin* 3.9 g/dL (3.3-5.0); Chloride* 105 mmol/L (96-114)
[2024-02-23 08:56] LABS: Potassium* 4.1 mmol/L (3.6-5.1); Sodium* 137 mmol/L (135-149)
[2024-02-23 08:58] LABS: Anion Gap 6 mEq/L (7-15); Aspartate Amino Transferase* 28 U/L (12-35); Bilirubin Total* 0.3 mg/dL (0.1-1.5); Carbon Dioxide* 26 mmol/L (20-32); Creatinine* 0.9 mg/dL (0.5-1.5); Est. Creatinine Clearance* 61.71; Estimated Glomerular Filt Rate 76 ml/min; Total Protein* 6.7 g/dL (6.0-8.3)
[2024-02-23 08:59] LABS: Alanine Aminotransferase* 20 U/L (4-35); Alkaline Phosphatase* 53 U/L (40-150); Blood Urea Nitrogen* 13 mg/dL (7-30); Calcium* 9.4 mg/dL (8.4-10.6); Glucose* 91 mg/dL (60-115)
--- NOTE | 2024-02-23 13:24 | URNOTE ---
Request received for authorization for Goserelin ([id number]). Prior authorization is not required per [facility] Ref# [id number].
[2024-02-24 14:40] LABS: Estradiol Premenol Female 48 pg/mL
[2024-02-25 00:08] LABS: Follicle Stimulating Hormone 30.4 IU/L
[2024-03-08] MEDS: GOSERELIN ACETATE 3.6 MG IMPLANT SUBCUT (08:44)
[2024-03-08 08:54] VITALS: BP 115/70; PULSE 72; RESP 16; TEMP 37.1; O2SAT 99
--- NOTE | 2024-03-08 10:14 | ONC.NURNOTE ---
Pt here for zometa, dose 3mg IV. CrCl 102 mL/min. Pt states she had flu like symptoms with 1st dose of zometa 4mg IV and then it was adjusted to 3mg IV. Since then, pt has been taking claritan and tylenol to help prevent these symptoms. Bending Roll Hand discussed with Lena Walker APRN and decision made to increase zometa to 3.5mg IV, pt verbalized understanding of plan of care.
[2024-04-05] MEDS: GOSERELIN ACETATE 3.6 MG IMPLANT SUBCUT (08:56)
[2024-05-03 15:12] VITALS: BP 127/75; PULSE 80; RESP 16; TEMP 36.9; O2SAT 96
[2024-05-03] MEDS: GOSERELIN ACETATE 3.6 MG IMPLANT SUBCUT (15:18)
[2024-05-31 15:04] VITALS: BP 119/81; PULSE 80; RESP 16; TEMP 36.3; O2SAT 97
[2024-05-31] MEDS: GOSERELIN ACETATE 3.6 MG IMPLANT SUBCUT (15:36)
[2024-06-27] MEDS: GOSERELIN ACETATE 3.6 MG IMPLANT SUBCUT (10:06)
[2024-07-25] MEDS: GOSERELIN ACETATE 3.6 MG IMPLANT SUBCUT (15:13)
[2024-07-25 15:17] VITALS: BP 101/71; PULSE 79; RESP 16; TEMP 36.7; O2SAT 96
== END 2024-07-25 23:59 | disposition home or self-care (01) ==
LOC: CCIC 15:00
PROVIDERS: PCP Physician Assistant; Referring Provider Physician Assistant; Visit Provider Physician Assistant
DX: C50.912 Malignant neoplasm of unspecified site of left female breast (principal); Z17.0 Estrogen receptor positive status [ER+]; Z79.810 Long term (current) use of selective estrogen receptor modulators (SERMs)
CPT/HCPCS: 36415; 80053; 82670; 83001; 85025; 96365; 96374; 96401; 96402; 99214; 99215; G0463; J3489; J9202

== ENCOUNTER 2024-10-04 16:15 | Outpatient (RCR) | payer BC, SELFPAY | END 2025-02-01 23:59 | disposition home or self-care (01) | PROVIDERS: PCP Physician Assistant; Visit Provider Student in an Organized Health Care Education/Training Program | DX: G82.54 Quadriplegia, C5-C7 incomplete (principal); R26.89 Other abnormalities of gait and mobility; Z51.89 Encounter for other specified aftercare | CPT/HCPCS: 97110; 97112; 97116; 97140; 97161 ==

== ENCOUNTER 2024-10-25 15:30 | Outpatient (RCR) | payer BC, SELFPAY ==
[2024-08-30 05:00] VITALS: BMI 35.1
[2024-08-30 14:24] VITALS: BMI 35.1
--- NOTE | 2024-08-31 15:12 | OT.OPLE2 ---
OT Outpatient Lymphedema Eval* OT Outpatient Lymphedema Eval* Start: 08/30/24 14:24 Freq: Status: Active Protocol: Document 08/30/24 14:24 MIKKI (Rec: 08/31/24 15:09 JOSE ENRIQUESukhjinder [id number]) E-signed By Frannie Krause OTMoreno/Pablo, TRISTEN OT Outpatient Evaluation Details Type Type Eval Complexity High Insurance Information Insurance Information Insurance Information Blue Cross/Blue Shield Height and Weight Height Height 162.56 cm Weight Weight 92.675 kg Weight Measurement Method Standing Scale BMI Body Mass Index (kg/m?) 35.1 BMI Classification Obese Obesity Class II Home Program Home Program Home Program Initiated Home Program Specifics Deep breathing can help you relax and ease discomfort and tightness around your incision (surgical cut). It?s also a good way to relieve stress during the day. 1. Sit comfortably in a chair. 2. Take a slow, deep breath in through your nose. Let your chest and belly expand. 3. Breathe out slowly through your mouth. Repeat as many times as you want to. Arm and shoulder exercises Doing arm and shoulder exercises will help you get back your full range of motion on your affected side. Your affected side is the side where you had your procedure. Your range of motion is how much you can safely move a part of your body. With full range of motion, you will be able to: -Move your arm over your head and out to the side. -Move your arm behind your neck. -Move your arm to the middle of your back. When to do these exercises Do these exercises 3 times every day until you can move your affected arm the way you did before your procedure. After that, keep doing them once a day. This often is important if you still feel tightness in your chest, shoulder, or under your affected arm. These exercises can help keep scar tissue from forming in your armpit and shoulder. Scar tissue can limit your arm movements later. Backward shoulder rolls This is a good exercise to start with. It gently stretches your chest and shoulder muscles. 1. Stand or sit comfortably with your arms relaxed at your sides. 2. In a circular motion, bring your shoulders forward, up, backward, and down (see Figure 1). Try to make the [place] as big as you can and move both shoulders at the same time. 3. Repeat this movement 5 times. If you feel tightness across your incision or chest, start with smaller circles. Make them bigger as the tightness lessens. When this exercise starts to feel easier , start doing the movement an extra time. Build up to repeating it 10 times. Shoulder wings This exercise will help you get back outward movement of your shoulder. You can do it while sitting or standing. 1. Place your hands on your chest or collarbone. 2. Raise your elbows out to the side. Raise them as high as you can, up to shoulder level. If you feel discomfort near your incision, hold your position and do the deep breathing exercise. If the discomfort goes away, raise your elbows a little higher. If the discomfort does not go away, do not raise your elbows any higher. 3. Slowly lower your elbows. 4. Repeat this movement 5 times. When you?re done, slowly lower your hands. When this exercise starts to feel easier, start doing the movement an extra time. Build up to repeating it 10 times. Backward arm circles If your procedure was done on both breasts, do this exercise with one arm at a time. Doing it with both arms at once will put too much pressure on your chest. 1. Stand with your feet slightly apart for balance. Raise your affected arm out to the side as high as you can 2. Start making slow, backward circles in the air with your arm. Make sure you?re moving your arm from your shoulder, not your elbow. Keep your elbow straight. 3. Repeat this movement 5 times. Make each [place] larger until they?re as big as you can comfortably make them. If you feel any aching or if your arm gets tired, take a break. Keep going when you feel better. 4. When you?re done, slowly lower your arm to your side. When this exercise starts to feel easier, start doing the movement an extra time. Build up to repeating it 10 times. Forward arm circles Follow the same instructions as for backward arm circles but make slow, forward circles . Make sure to rest your arm for a moment between doing backward and forward arm circles. W exercise You can do this exercise while sitting or standing. 1. Form a ?W? with your arms out to the side and palms facing forward. Try to bring your hands up so they?re even with your face. If you cannot raise your arms that high, bring them to the highest comfortable position. 2. Pinch your shoulder blades together and downward, as if you?re squeezing a pencil between them. Keep squeezing them together and downward for 5 seconds. If you feel discomfort near your incision, hold your position and do the deep breathing exercise. If the discomfort goes away, try to bring your arms back a little further. If the discomfort does not go away, do not reach any further. Hold the furthest position you can and squeeze your shoulder blades together for 5 seconds. 3. Slowly bring your arms back to the starting position. 4. Repeat this movement 5 times. When you?re done, slowly lower your hands. When this exercise starts to feel easier, start doing the movement an extra time. Build up to repeating it 10 times. Back climb 1. Place your hands behind your back. Hold the hand on your affected side with your other hand. If your procedure was done on both breasts, use the arm that moves most easily to hold the other. 2. Slowly slide your hands up the center of your back as far as you can. You should feel a gentle stretch in your shoulder area. Remember to breathe normally. If you feel tightness near your incision, hold your position and do the deep breathing exercise. If the tightness lessens, try to slide your hands up a little further. If it does not, leave your hands where they are. 3. Hold this position for 30 seconds. After 30 seconds, slowly lower your hands. When this exercise starts to feel easier, start holding the position for a little longer. Build up to holding it for 60 seconds (1 minute). Hands behind neck The first few times you do this exercise, do it while lying comfortably on your back on your bed. Place a pillow under your head. You can also roll up a small or medium towel and place it under the middle of your back, along your spine. This will help open up the front of your chest. Once you?re comfortable doing this exercise while lying on your back, you can do it while sitting or standing. 1. Put your hands together on your lap or in front of you. 2. Slowly raise your hands toward your head. Keep your elbows together in front of you, not out to the sides. Keep your head level. Do not bend your neck. Keep your shoulder blades squeezed together. 3. Slide your hands over your head until you reach the back of your neck. When you get to this point, spread your elbows out to the sides. If you feel tightness across your incision or chest, hold your position and do the deep breathing exercise. It?s OK to rest your hands on your head if you need to. If the tightness lessens, continue with the movement. If it does not, do not move any further. 4. Hold the highest position you can for 30 seconds. Remember to breathe normally. After 30 seconds, slowly bring your elbows back together, slide your hands over your head, and lower your arms. When this exercise starts to feel easier, start holding the position for a little longer. Build up to holding it for 60 seconds (1 minute). Side wall crawls You will need 2 pieces of tape for this exercise. You should not feel pain while doing this exercise. It?s normal to feel some tightness or pulling across the side of your chest . Focus on your breathing until the tightness lessens. Be careful not to turn your body toward the wall while doing this exercise. Make sure only the side of your body faces the wall. If your procedure was done on both breasts, start with step 3. 1. Stand with your unaffected side closest to the wall, about 1 foot (30.5 centimeters ) away from the wall. Your unaffected side is the side where you did not have your procedure. 2. Reach as high as you can with your unaffected arm. Nancy that point with a piece of tape. This will be the goal for your affected arm. 3. Turn your body so your affected side is now closest to the wall. If your procedure was done on both breasts, start with either side closest to the wall. 4. Crawl your fingers up the wall as far as you can. Remember to breathe normally. 5. When you get to the point where you feel a good stretch, but not pain, do the deep breathing exercise. 6. Return to the starting position by crawling your fingers back down the wall. 7. Repeat this movement 5 times. 8. After your last crawl, use a piece of tape to nancy the highest point you reached with your affected arm. This will let you see your progress each time you do the exercise. 9. If your procedure was done on both breasts, repeat the exercise with your other arm. When this exercise starts to feel easier, start doing the movement an extra time. Build up to repeating it 10 times. Forward wall crawls You will need 2 pieces of tape for this exercise. 1. Stand facing a wall. Your toes should be about 6 inches (15 centimeters) from the wall . 2. Reach as high as you can with your unaffected arm. Nancy that point with a piece of tape. This will be the goal for your affected arm. If your procedure was done on both breasts, set your goal using the arm that moves most comfortably. 3. Place both hands against the wall at a level that?s comfortable. Crawl your fingers up the wall as far as you can, keeping them even with each other. Try not to look up toward your hands or arch your back. 4. When you get to the point where you feel a good stretch, but not pain, do the deep breathing exercise. 5. Return to the starting position by crawling your fingers back down the wall. 6. Repeat this movement 5 times. Each time you raise your hands, try to crawl a little bit higher. 7. After the last crawl, use the other piece of tape to nancy the highest point you reached with your affected arm . This will let you see your progress each time you do the exercise. As you become more flexible, you may need to take a step closer to the wall. This will let you reach a little higher. When this exercise starts to feel easier , start doing the movement an extra time. Build up to repeating it 10 times. 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: I97.2 - Postmastectomy lymphedema syndrome Treatment Diagnosis Lymphedema, I89.0 Axillary Cording, I89.8 Date Of Onset Chronic-04/25/2021 L breast lumpectomy/L axillary sentinel lymph node biopsy Other Precautions Allergies include but are not limited to: adhesive Allergy (Severe, Verified 08/22/24 14:56) itching amoxicillin Allergy (Severe, Verified 08/22/24 14:56) Rash, trouble breathing vancomycin Allergy (Severe, Verified 08/22/24 14:56) rash, trouble breathing ciprofloxacin Allergy ( Intermediate, Verified 14:56) Rash Sulfa (Sulfonamide Antibiotics ) Allergy (Intermediate, Verified 08/22/24 14:56) Respiratory distress gabapentin Allergy (Mild, Verified 08/22/24 14:56) suicidal oxybutynin Adverse Reaction ( Verified 08/22/24 14:56) Medical History Medical History Comments Infusion reaction (Acute) T80. 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 - with associated lymphvascular invasion - Ancillary testing: performed on initial biopsy - with associated Grade 3 comedo and cribriform type DCIS B) LEFT BREAST SENTINEL LYMPH NODES, BIOPSY: - Metastatic carcinoma in 5 ( of 6) lymph nodes - Largest deposit 11 mm in greatest dimension - Less than 1 mm of extracapsular extension - HER2: 1+ by IHC Number of Lymph Nodes with Macrometastases (> 2 mm): 4 Number of Lymph Nodes with Micrometastases (> 0.2 mm to 2 mm and / or > 200 cells): 1 Size of Largest Metastatic Deposit (Millimeters): 11 mm Extranodal Extension: present and less than or equal to 2 mm 11/12/2021 Left axillary level I and II LN dissection by Dr. Berger 11/12/2021 Left axillary lymphatic venous bypass by Dr. Saravia - Multiple (8 of 20) lymph nodes are positive for metastatic mammary ductal carcinoma, including 6 lymph nodes with macrometastasis and 2 lymph nodes with micrometastasis. - The largest metastasis measures 6 mm. - Extranodal extension is present, 2 mm. - staged up now to pT2N3 ( Stage IIIB)? 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 female with referral to skilled OT ( Lymphedema clinic) after a f/u visit with her oncology provider on 08/22/24. Patient is reporting new acute flare up of swelling in her L UE and is needing new compression for the management of her Lymphedema. She also states that she is noticing increased difficulty lifting up the L UE past the first shelf of her upper kitchen cabinet ( approximately 120 degrees) and thinks she found an axillary cord in her L armpit. Patient was last seen in the clinic on 08/18/23. Patient's past medical history is complex with pT2N3a (stage IIIB) ERPR+ HER2 2+ IDC of left breast s/ p lumpectomy 04/2021 (pT2N2a, 5/6+ LNs), adjuvant ACT, and delayed axillary lymph node dissection 10/2021 (8/20+ LNs); completed RT 01/2022. Started tamoxifen 10/2021. Genetic testing negative. She completed abemaciclib 02/2025 and continued on tamoxifen, zometa. She then enrolled in EMBER4 study at [facility] in 04/2024 and is now on imlunestrant instead of tamoxifen. 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 -works from home Patient does not drive, gets a ride to all her appointments Spouse: Krunal, 2 adult children (1 son, 1 daughter); 3 cats Ambulates with a SPC, L foot drop Patient Difficulties Difficulties With Any Of The Following Walking,Dressing,Reaching Feet & Toes,Bathing/Showering, Preparing Meals,Sleeping In Bed Impairments Impairments Difficulties With ADLs,Limb Heaviness,Poor Clothing Fit Impairments Comments AROM R/L R Shoulder flexion 160 degrees ; Abduction 165 degrees; External Rotation 85 degrees L Shoulder flexion 147 degrees ; Abduction 168 degrees; External Rotation 61 degrees *Reaching, lifting, carrying and grasping have become more difficult with the L hand Problem List Problem List Significant Risk For Infection For Lymphedema Related Complications,Does Not Have Appropriate Compression Garments For LT Management, Presents With Increased Fall Risk Secondary To Lymphedema, Presents With Impaired Mobility/ROM Problem List Comments Patient is reporting L UE limb heaviness (difficulty lifting her L UE to reach for items in the upper cabinets in her kitchen and closet). Exercise History Does Patient Exercise Regularly Yes Exercise Comments Fell off her routine the last 5-7 months due to life stressors and increased workload (long working hours, sometimes working 12+ hour days). Son recently diagnosed has a Type 1 diabetic. * Patient has gained 6 months in the last half year. Pain Pain Yes Pain Comments Patient has chronic back and hip pain. 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 38 lbs) Lateral/thumb pinch: 10 lbs 3 pt: 10 lbs 2 pt: 5 lbs L Under Baster strength: 45/45 lbs ( July 2022 head start teacher was 52 lbs) Lateral/thumb pinch: 12 lbs 3 pt: 12 lbs 2 pt: 6 lbs Previous Treatment Previous Treatment For Swelling/ MLD,Compression Pump, Lymphedema Compression Garment,Exercise, Elevation Compression History Does Patient Currently Wear Compression Yes During Daytime Compression During Daytime Comments Patient has size II over the counter (ready wear) JUZO 20- 30 mmHg compression sleeve and soft seamless glove for the L UE Current Swelling (Location/Pitting/Texture) Pitting Scale: 0 = No pitting 1+ Tissue returns to normal almost immediately 2+ Tissue returns after 15-30 seconds 3+ Tissue returns after 1-1/2 minutes 4+ Tissue returns after 2-3 minutes N/A Tissue no longer pits due to induration Tissue texture: Soft or indurated Skin Changes Fibrosis,Limited Skin Mobility Capillary Refill Brisk Type of Swelling Secondary Circumferential Measurements Upper Extremity Left Upper Extremity Base of Third Finger (in cm) 6.1 MCP (in cm) 18.9 Palm (in cm) 19.7 Smallest Wrist Measurement (in cm) 16.5 10 cm Above Smallest Wrist Measurement 21.7 20 cm Above Smallest Wrist Measurement 27.4 30 cm Above Smallest Wrist Measurement 34 40 cm Above Smallest Wrist Measurement 35.9 Total Girth in cm 180.2 Comments/Additional Measurements Comments/Additional Measurements Smallest wrist measurements when first eval'd on 02/14/22 was 15.8 cm's, last year (2023 ) patient was measuring at 16 cm's and now she is at 16.5 cm 's. All measurements of the L UE are up from previous sessions. When patient took off her compression garments, she had redness and indents at her wrist and elbow crease. Assessment Assessment Patient is a 53 y.o. female with referral to skilled OT ( Lymphedema clinic) after a f/u visit with her oncology provider on 08/22/24. Patient is reporting new acute flare up of swelling in her L UE and is needing new compression for the management of her Lymphedema. She also states that she is noticing increased difficulty lifting up the L UE past the first shelf of her upper kitchen cabinet ( approximately 120 degrees). Patient was last seen in the clinic on 08/18/23. Patient's past medical history is complex with pT2N3a (stage IIIB) ERPR+ HER2 2+ IDC of left breast s/p lumpectomy 2020 (pT2N2a, 5/6+ LNs), adjuvant ACT, and delayed axillary lymph node dissection 10/2021 (8/20+ LNs); completed RT 01/2022. Started tamoxifen 10/2021. Genetic testing negative. She completed abemaciclib 02/2025 and continued on tamoxifen, zometa . She then enrolled in EMBER4 study at [facility] in 04/2024 and is now on imlunestrant instead of tamoxifen. Per the notes in her clinic visit with provider on 08/22/24: Clinically doing well in terms of her breast cancer. Continues to tolerate her Zoladex/Zometa. [facility] group managing her endocrine therapy (- Endocrine therapy: per [facility] clinical trial Ember (( Imlunestrant is an orally by available selective estrogen receptor degrader (SERD)-with more potent activity compared to fulvestrant and AI resistant Pdx models. - menopausal status: She is s/p hysterectomy 2017. started goserelin for ovarian suppression 03/08/2024, . - Bisphosphonates: continue zometa q6 months x 3 years (6 total treatments). started 07/2022. will use claritin/tylenol/ibuprofen for associated flu like symptoms. takes vitamin D; holding calcium for constipation. dose of Zometa 3mg IV, - Mammogram: screening mammogram due 04/2025 and annually or however recommended by her clinical trial. - return to clinic October [address] Tim and for repeat clinical breast exam. - will follow- up with her primary care provider on dysphagia, possible EGD vs swallow study. PLAN: Fit/Size patient for new compression for her L UE; Increased R and L UE strength and AROM in the L Shoulder; Breast Cancer surveillance program with acute flare up of L Lymphedema exacerbation and axillary cording in the L axilla. Patient Goals Short Term Goals (# of Weeks) 6 Short Term Goals 1. Patient will experience decreased thick edema in the L UE in order to improve tissue health and decrease risk for infection/cellulitis 2. Patient will perform HEP including scar mobilization with minimal assistance in order to improve lymphatic flow and venous return 3. Patient will perform self MLD protocol with minimal assistance to help reduce swelling and improve ROM and mobility Fpc Goals (# of Weeks) 12 Fpc Goals 4. Patient will be discharged from therapy once their have achieved >90% of normal AROM in the L UE. 5. Patient will be discharged from therapy once their have improved L and R UE Strength by 7% (see grid above for crack off person and pinch strengths). 6. Patient will resume using her Lymphedema Pump for the L UE at a minimum of 3x/week for 8 consecutive weeks in order to decrease her fluid and improve the limb heaviness she is experiencing when lifting her arm. Treatment Plan Treatment Plan Evaluation,Edema Control, Manual Therapy,Wound Care/Scar Management,Therapeutic Exercise,Self-Care/Home Management,Education Other Treatment Plan Breast Cancer surveillance program with acute flare up of L Lymphedema exacerbation and axillary cording in the L axilla Expected Frequency 1-2x Week Expected Duration 1 year Certification Certification Statement I Certify That: Therapy Services Provided, Therapy Plan Established, Therapy Plan Reviewed Certification Information Clinic ID # [id number] Initial Certification Date 08/30/24 Recertification Due Date 08/30/25 Provider Signature Required Yes Provider Signature Shows Agreement With POC & Medical Necessity Physician NPI Number Write NPI# Here Physician Comment/Change Comment or Changes Physician Signature & Date Requested Please Sign/Date Here
[2024-09-07 15:47] VITALS: BMI 35.1
[2024-09-15 14:38] VITALS: BMI 35.1
[2024-09-22 13:30] VITALS: BMI 35.1
[2024-10-04 15:36] VITALS: BMI 35.1
== END 2025-02-22 23:59 | disposition home or self-care (01) ==
PROVIDERS: PCP Physician Assistant; Visit Provider Physician Assistant
DX: C50.919 Malignant neoplasm of unspecified site of unspecified female breast (principal); I97.2 Postmastectomy lymphedema syndrome; Z51.89 Encounter for other specified aftercare
CPT/HCPCS: 97110; 97112; 97116; 97140; 97167

== ENCOUNTER 2025-02-06 15:00 | Outpatient (RCR) | payer BC, SELFPAY ==
[2024-08-22] MEDS: GOSERELIN ACETATE 3.6 MG IMPLANT SUBCUT (15:50)
--- NOTE | 2024-08-23 10:02 | ONC.NURNOTE ---
OT referral faxed to [facility] and clinic rehab.
--- NOTE | 2024-09-16 10:24 | URNOTE ---
Request received for authorization for Zoledronic Acid (ZOMETA) ([id number]).?Prior authorization is not required?for start date 09/19/2024 to 09/18/2025, Ref#[id number] per [facility] active plan on [employer].
[2024-09-19 14:03] VITALS: BP 137/82; PULSE 87; RESP 20; TEMP 37.3; O2SAT 95
[2024-09-19] MEDS: GOSERELIN ACETATE 3.6 MG IMPLANT SUBCUT (14:41)
[2024-09-19 15:06] LABS: Calcium* 9.2 mg/dL (8.4-10.6); Creatinine* 0.7 mg/dL (0.5-1.5); Est. Creatinine Clearance* 78.41; Estimated Glomerular Filt Rate 102 ml/min
[2024-09-19] MEDS: ZOLEDRONIC ACID 3 MG in 0.9 % SODIUM CHLORIDE 100 ml 100 ML 415 MG IVPB (15:32)
[2024-10-17] MEDS: GOSERELIN ACETATE 3.6 MG IMPLANT SUBCUT (15:49)
[2024-11-14 15:35] VITALS: BP 119/74; PULSE 75; RESP 18; TEMP 37.2; O2SAT 95
[2024-11-14] MEDS: GOSERELIN ACETATE 3.6 MG IMPLANT SUBCUT (15:51)
[2024-12-12 14:25] VITALS: BP 123/80; PULSE 101; RESP 20; TEMP 36.5; O2SAT 95
[2024-12-12] MEDS: GOSERELIN ACETATE 3.6 MG IMPLANT SUBCUT (14:43)
[2025-01-09] MEDS: GOSERELIN ACETATE 3.6 MG IMPLANT SUBCUT (15:53)
[2025-02-06 14:50] VITALS: BP 113/67; PULSE 80; RESP 17; TEMP 36.7; O2SAT 93
[2025-02-06] MEDS: GOSERELIN ACETATE 3.6 MG IMPLANT SUBCUT (15:02)
== END 2025-02-18 23:59 | disposition home or self-care (01) ==
LOC: CCIC 15:00
PROVIDERS: Physician Assistant; PCP Physician Assistant; Referring Provider Physician Assistant; Visit Provider Internal Medicine Hematology & Oncology
DX: C50.912 Malignant neoplasm of unspecified site of left female breast (principal); Z17.0 Estrogen receptor positive status [ER+]
CPT/HCPCS: 36415; 82310; 82565; 96374; 96402; 99214; 99215; G0463; J3489; J9202